=== PATIENT | male | born 1950 | race Caucasian/White ===

== ENCOUNTER → 2020-11-15 13:49 | Outpatient (BNVA) | payer MEDICARE, SELFPAY | PROVIDERS: PCP Internal Medicine Medical Oncology; Visit Provider Hospitalist | DX: R91.1 Solitary pulmonary nodule (principal); J30.9 Allergic rhinitis, unspecified; G47.33 Obstructive sleep apnea (adult) (pediatric); Z99.89 Dependence on other enabling machines and devices | CPT/HCPCS: 99212 ==

== ENCOUNTER → 2021-05-21 10:05 | Outpatient (BNVA) | payer MEDICARE, SELFPAY | PROVIDERS: PCP Internal Medicine Medical Oncology; Visit Provider Hospitalist | DX: R16.1 Splenomegaly, not elsewhere classified (principal); R91.1 Solitary pulmonary nodule; G47.33 Obstructive sleep apnea (adult) (pediatric); J20.9 Acute bronchitis, unspecified; R63.4 Abnormal weight loss; Z99.89 Dependence on other enabling machines and devices | CPT/HCPCS: 99212 ==

== ENCOUNTER 2023-03-26 13:32 | Outpatient (REF) | payer MEDICARE, SELFPAY ==
--- NOTE | ~2023-03-26 | XR_ITS ---
EXAMINATION: XR CHEST CLINICAL INFORMATION: R05.3 - Chronic cough COMPARISON: CT chest noncontrast 03/01/2019 (RAYUS). TECHNIQUE: 2 views of the chest were obtained. FINDINGS: The lungs are clear. No airspace consolidation or groundglass opacity. The costophrenic sulci are well-defined. The heart is normal in size. Vascularity is normal. Hilar and mediastinal contours are unremarkable. No visible acute bony abnormality. XR/XR chest 2V IMPRESSION: Unremarkable examination.
== END 2023-03-26 13:33 | disposition home or self-care (01) ==
LOC: HO.XRAY 13:32
PROVIDERS: PCP Hospitalist; Visit Provider Hospitalist
DX: J45.909 Unspecified asthma, uncomplicated (principal); G47.33 Obstructive sleep apnea (adult) (pediatric); R91.8 Other nonspecific abnormal finding of lung field; R91.1 Solitary pulmonary nodule; Z99.89 Dependence on other enabling machines and devices
CPT/HCPCS: 71046; 99212

== ENCOUNTER 2023-07-29 09:33 | Outpatient (AMB) | payer MEDICARE, SELFPAY ==
[2023-07-29 09:42] VITALS: BP 110/60; PULSE 64; O2SAT 98; BMI 28.0
--- NOTE | 2023-07-29 09:42 | MHC.OFFVIS ---
Intake Vital Signs 07/29/23 09:42 Height 5 ft 10 in Weight 195 lb BMI 28.0 BP 110/60 Blood Pressure Location Lt brachial Position Sitting Pulse 64 Pulse Source Pulse Oximeter Pulse Oximetry (%) 98 Oxygen Delivery Method Room Air Intake Visit Reasons: Asthma [place] Required: No Allergies doxycycline Allergy (Severe, Verified 07/29/23 09:45) nausea and vomiting Cipro Allergy (Severe, Uncoded 07/29/23 09:45) Diarrhea Penicillin Allergy (Severe, Uncoded 07/29/23 09:45) Rash HPI HPI Comments History of Present Illness Details The patient is a 72-year-old gentleman known [place], chronic rhinitis in the in addition to pulmonary nodules. In regards of is CPAP the CPAP therapy has been affecting beneficial. However, he doesn't seem to be able to tolerated the whole night. We did request a download showing that he has apnea is improved dramatically with an AHI of less than 1. His average pressure is around 6 to 9. The therapy has been affecting beneficial. At this point will try to minimize the pressures to minimize difficulties tolerating it the whole night. I also think that he needs a new mask. I did recommend the [employer] fullface mask. In regards to the pulmonary nodules he is last CT scan of the chest was done at [facility] back in February 2019 demonstrating stable pulmonary nodules and interstitial changes when compared to 2016. He has been having issues with nasal congestion. He stop the Astelin nasal spray. He is continue the ipratropium. At this point he has nasal congestion is worse. 05/15/2020. The patient is here for pulmonary follow-up visit. Overall the patient is doing okay. He was having issues with fatigue and was noted to have some anemia. For the anemia workup included a CT scan of the chest. This time had at [facility] where again diff on the right lower lobe nodular density and also some lymphadenopathy. He is scheduled to undergo a repeat CT scan next week. In the office we did look at the CT scan from February 2019 from [facility] demonstrating similar findings with the parenchymal density, but, will see if there is any changes in the lymphadenopathy appreciated on the recent CT scan. In regards to his obstructive sleep apnea he still struggling with the CPAP. He tries to use it but then takes it off after 1-2 hours. We did switch his APAP to a CPAP pressure of 7 cm and a ramp before. Hopefully, he can tolerate that pressure knowing that a average pressure 6.5 decrease his AHI to 0.9 which is very reassuring. If he cannot tolerate that pressure he can decrease the pressure to 6 or call me and I can decrease the pressure for him. I did provide him with a different mask N30i that he can try as well and see if improves his overall tolerance of the PAP therapy. He also mentions that he had of bloody nose. He was evaluated by ENT. He did have increased vascularity and dryness. Hopefully now in the summertime should be doing okay. Will monitor closely may need of additional humidification or lubrication of the nasal passages for the winter months. He has been evaluated further by the oncologist and did undergo a repeat CT scan of the chest sometime in March 2020 demonstrating still the persistent abnormal finding in the right lower lobe. Has not appear to have changed. In addition to that on examination he continues to have this persistent 3/6 holosystolic murmur radiating to the apex suggestive of a mitral regurgitation murmur. He will be following up with primary care doctor soon, therefore, our request an echocardiogram for them to have available to review and can also reviewed myself as well. 11/15/2020 the patient is here for pulmonary follow-up visit. Overall he is doing very well. He lost significant amount of weight. Partly is because he may need lifestyle changes and will has been exercising more. He also has lost some appetite. He has had imaging studies of his chest, last September 2020 demonstrating interval decrease in the nodular density of his lungs which is very reassuring consistent with the findings that he has had a previous CAT scans from [facility]. His main complaint is that he is having significant nasal congestion. He had also some issues with epistaxis. He has been using the fluticasone with no significant improvement. He has used the attributed nasal spray in the past and also the Astelin but no longer. The patient has not had any allergy testing either. He continues uses CPAP. The CPAP therapy continues to be affecting beneficial. Although the nasal congestion does bother him. He does uses CPAP for more than 4 hours a night. At this point will treat his nasal therapies with ipratropium and also the Astelin can stop the fluticasone. He should be able rinses nose prior to putting on CPAP. Will send him for blood work for further allergy testing. 05/21/2021 the patient is here for a pulmonary follow-up visit. He continues to do very well. Although he continues to lose weight. He states that he has not changed his eating habits and he good appetite. He has been more active walking the golf course more regularly about 5 times a week now he is retired. He has had a workup from his primary care provider oncologist. Currently we did review his CT scan of the chest from [facility] that he had back in 2019 and did demonstrate a benign looking area in the esophagus. This point he is scheduled to undergo an endoscopy which will be helpful to further address that issue. In the meantime will follow his pulmonary nodules. They stable in the past with the weight loss I will request repeat scan this time. In addition to that he will be following up with endocrinology soon. He does describe in addition to weight loss loss and strength. From a nasal congestion standpoint used to using it 3 nasal sprays. Did do help although he prefers not to taking. I did recommend that if he has episodes of worsening nasal congestion he can also try Sudafed. In the meantime he continues uses CPAP. The CPAP therapy continues to be affecting beneficial. He is tolerating it well. He is wondering with weight loss if he still needs it. My recommendation is that if he is tolerating CPAP he to use continue using it. Hold off on sleep study at this time. Will have the patient return in the fall after her CT scan of the chest. 03/26/2023 the patient is here for pulmonary follow-up visit. The patient had a tough winter. He had a respiratory illness briefly that resulted in significant shortness of breath and cough. He did call the office and we did recommend he go to the his primary care since we did not have any availability. The patient currently is doing better. His main complaint always that he has significant nasal congestion and postnasal drip. Moderate to severe. For the most part thin liquid secretions. He did try the petroleum nasal spray with only partial resolution. The patient states that he has been using CPAP at nighttime. Although sometimes difficult for him to tolerated. We did download the machine on he does use it every night but seems to take it off in the middle the night. He does not understand or remember why. Most likely is because the pressure is going up. We did download the machine and appears that his AHI is well below 1 and his average pressure is around 6-7 cm water. Patient likely takes it off when he goes higher than that. In addition to this seems like his current CPAP is not working properly. HIs CPAP is older than 8 years. Will request for placement resmed machine at this time the patient will bring in his new machine when he comes into the next visit. 07/29/2023 the patient is here for pulmonary follow-up visit. Overall the patient has been doing well from a respiratory status. Although he says that he typically has a hard time breathing in the winter time. He has had that difficulty breathing for the last 2 years. This time will reassess him during the winter months. However he still struggling with CPAP mask. The mask is leaking out air into his and then last waking her up. Also the elevated pressures are bothering him he has to reset the machine. Otherwise CPAP therapy has been affecting beneficial. He does use an N20 mask. I do see with the escape air is coming out of the from the mask. I did provide him with an N30 I mask that allows on last the [place] of the air so hopefully his 1 be affected by a. He tolerated the mask well in the office. He stated I small mask very well. The pressures were adjusted as well from CPAP of 7 to a CPAP APAP 4-6. His AHI was down to 0. He as far as his chest x-ray back in March it was our read as no acute disease. Therefore no edema imaging is warranted. His breathing is okay right now. Will have him come back in the winter time with pulmonary function studies. [facility] Medical History (Updated 03/26/23 @ 14:03 by Grover Barbosa MD) Chronic cough Weight loss Splenomegaly Polycythemia Pulmonary nodule CHICO on CPAP Chronic allergic rhinitis Social History (Updated 05/21/21 @ 10:16 by STEPHON Vega) Patient Tobacco Use Status: Never used Tobacco Review of Systems Const Denies night sweats ENT Denies change in voice, Denies lip swelling, Denies mouth pain, Reports nasal congestion, Reports nasal discharge, Reports post nasal drip and Denies tongue swelling Card Denies chest pain Resp Reports cough GI Denies abdominal pain Musc Denies no additional complaints Neuro Denies Neuro-related abnormal movements Psych Denies no additional complaints Asa/Lymph Denies easy bleeding and Denies lymphadenopathy Aller/Immun Denies lip swelling and Denies tongue swelling Physical Exam Vital Signs: Last Vital Signs Pulse 64 07/29/23 09:42 BP 110/60 07/29/23 09:42 Pulse Ox 98 07/29/23 09:42 Oxygen Delivery Method Room Air 07/29/23 09:42 BMI result Body Mass Index 28.0 Const General: alert Eyes Pupils: Equal, round and reactive pupils present Neck Neck: Yes normal visual inspection, Yes full ROM and Yes no lymphadenopathy Chest Chest palpation & inspection: normal inspection of the chest Resp Auscultation: diminished lung sounds Cardio Rate: regular rate Rhythm: regular rhythm Heart sounds: S1 normal heart sound present and S2 normal heart sound present GI Palpation (GI): Soft to palpation and nontender Auscultation: normal bowel sounds Skin General skin exam: rashes and/or lesions noted Neuro Cranial nerves: Yes Equal, round and reactive pupils present Assessment & Plan Assessment & Plan (1) Pulmonary nodule: Code(s): R91.1 - Solitary pulmonary nodule (2) [place] on CPAP: Code(s): G47.33 - Obstructive sleep apnea (adult) (pediatric); Z99.89 - Dependence on other enabling machines and devices (3) Chronic allergic rhinitis: Code(s): J30.9 - Allergic rhinitis, unspecified (4) Chronic cough: Code(s): R05.3 - Chronic cough Plan Continue CPAP, machine not working properly, older than 8 years. We will request a replacement, machine broken beyond repeair. Adjusted pressures, APAP 4-6. Trial [id number] Continue nasal fluticasone nasal spray, ipratropium nasal spray PFTs F/U 4 months Orders: Orders PFT pulmonary function test 3 Months R05.3 - Chronic cough Coding Level of Care Code Est Pt Level 4 (32489) Diagnoses Pulmonary nodule R91.1 CHICO on CPAP G47.33; Z99.89 Chronic allergic rhinitis J30.9 Chronic cough R05.3 Time Spent (min) 19
== END 2023-07-29 10:11 | disposition home or self-care (01) ==
PROVIDERS: PCP Hospitalist; Visit Provider Hospitalist
DX: R91.1 Solitary pulmonary nodule (principal); G47.33 Obstructive sleep apnea (adult) (pediatric); Z99.89 Dependence on other enabling machines and devices; J30.9 Allergic rhinitis, unspecified; R05.3 Chronic cough
CPT/HCPCS: 99214

== ENCOUNTER → 2023-07-29 09:33 | Outpatient (BNVA) | payer MEDICARE, SELFPAY | PROVIDERS: Visit Provider Hospitalist | DX: G47.33 Obstructive sleep apnea (adult) (pediatric) (principal); R91.1 Solitary pulmonary nodule; J30.9 Allergic rhinitis, unspecified; R05.3 Chronic cough; Z99.89 Dependence on other enabling machines and devices | CPT/HCPCS: 99212 ==

== ENCOUNTER 2023-10-29 10:29 | Outpatient (REF) | payer MEDICARE, SELFPAY ==
--- NOTE | 2023-10-29 11:07 | PFT_ITS ---
Spirometry [] FVC= 89%, FEV1 99%, FEV1/FVC ratio 84 FEF 25-75 178% MVV 57% Post bronchodilator therapy there is no change Lung Volumes [] Total lung capacity 80% residual volume 78% Diffusion Capacity [] DLCO 57% dL/VA 69% Methacholine Challenge [] Flow Volume Loops [] MVV [] MIP/MEP(Max inspiratory pressure/Max expiratory pressure) [] 6 Minute Walk Test [] ABG [] Interpretation [] NORMAL PULMONARY FUNCTION TEST. NO EVIDENCE OF OBSTRUCTIVE OR RESTRICTIVE PULMONARY DISORDER. DIFFUSION CAPACITY IS MODERATELY DECREASED WHICH MAY BE DUE TO TECHNICAL REASON, PULMONARY VASCULAR DISEASE, OR NON PULMONARY FACTORS. CLINICAL CORRELATION IS RECOMMENDED. MTDD
== END 2023-10-29 10:30 | disposition home or self-care (01) ==
LOC: HO.RESP 10:29
PROVIDERS: PCP Hospitalist; Visit Provider Hospitalist
DX: R05.3 Chronic cough (principal)
CPT/HCPCS: 94010; 94727; 94729

== ENCOUNTER → 2023-10-29 11:07 | Outpatient (BNV) | payer MEDICARE, SELFPAY | PROVIDERS: PCP Hospitalist; Visit Provider Internal Medicine | DX: R05.3 Chronic cough (principal) | CPT/HCPCS: 94060; 94727; 94729 ==

== ENCOUNTER 2023-11-25 10:14 | Outpatient (AMB) | payer MEDICARE, SELFPAY ==
--- NOTE | 2023-11-25 10:18 | MHC.OFFVIS ---
Intake Vital Signs 11/25/23 10:19 Height 5 ft 10 in Weight 198 lb BMI 28.4 BP 122/50 L Blood Pressure Location Lt brachial Position Sitting Pulse 68 Pulse Source Pulse Oximeter Pulse Oximetry (%) 100 Oxygen Delivery Method Room Air Intake Visit Reasons: Asthma Allergies doxycycline Allergy (Severe, Verified 11/25/23 10:21) nausea and vomiting Cipro Allergy (Severe, Uncoded 11/25/23 10:21) Diarrhea Penicillin Allergy (Severe, Uncoded 11/25/23 10:21) Rash HPI HPI Comments History of Present Illness Details The patient is a 73-year-old gentleman known CHICO, chronic rhinitis in the in addition to pulmonary nodules. In regards of is CPAP the CPAP therapy has been affecting beneficial. However, he doesn't seem to be able to tolerated the whole night. We did request a download showing that he has apnea is improved dramatically with an AHI of less than 1. His average pressure is around 6 to 9. The therapy has been affecting beneficial. At this point will try to minimize the pressures to minimize difficulties tolerating it the whole night. I also think that he needs a new mask. I did recommend the dreamwear fullface mask. In regards to the pulmonary nodules he is last CT scan of the chest was done at [facility] back in February 2019 demonstrating stable pulmonary nodules and interstitial changes when compared to 2016. He has been having issues with nasal congestion. He stop the Astelin nasal spray. He is continue the ipratropium. At this point he has nasal congestion is worse. 05/15/2020. The patient is here for pulmonary follow-up visit. Overall the patient is doing okay. He was having issues with fatigue and was noted to have some anemia. For the anemia workup included a CT scan of the chest. This time had at [facility] where again diff on the right lower lobe nodular density and also some lymphadenopathy. He is scheduled to undergo a repeat CT scan next week. In the office we did look at the CT scan from February [address] [facility] demonstrating similar findings with the parenchymal density, but, will see if there is any changes in the lymphadenopathy appreciated on the recent CT scan. In regards to his obstructive sleep apnea he still struggling with the CPAP. He tries to use it but then takes it off after 1-2 hours. We did switch his APAP to a CPAP pressure of 7 cm and a ramp before. Hopefully, he can tolerate that pressure knowing that a average pressure 6.5 decrease his AHI to 0.9 which is very reassuring. If he cannot tolerate that pressure he can decrease the pressure to 6 or call me and I can decrease the pressure for him. I did provide him with a different mask N30i that he can try as well and see if improves his overall tolerance of the PAP therapy. He also mentions that he had of bloody nose. He was evaluated by ENT. He did have increased vascularity and dryness. Hopefully now in the summertime should be doing okay. Will monitor closely may need of additional humidification or lubrication of the nasal passages for the winter months. He has been evaluated further by the oncologist and did undergo a repeat CT scan of the chest sometime in March 2020 demonstrating still the persistent abnormal finding in the right lower lobe. Has not appear to have changed. In addition to that on examination he continues to have this persistent 3/6 holosystolic murmur radiating to the apex suggestive of a mitral regurgitation murmur. He will be following up with primary care doctor soon, therefore, our request an echocardiogram for them to have available to review and can also reviewed myself as well. 11/15/2020 the patient is here for pulmonary follow-up visit. Overall he is doing very well. He lost significant amount of weight. Partly is because he may need lifestyle changes and will has been exercising more. He also has lost some appetite. He has had imaging studies of his chest, last September 2020 demonstrating interval decrease in the nodular density of his lungs which is very reassuring consistent with the findings that he has had a previous CAT scans from [facility]. His main complaint is that he is having significant nasal congestion. He had also some issues with epistaxis. He has been using the fluticasone with no significant improvement. He has used the attributed nasal spray in the past and also the Astelin but no longer. The patient has not had any allergy testing either. He continues uses CPAP. The CPAP therapy continues to be affecting beneficial. Although the nasal congestion does bother him. He does uses CPAP for more than 4 hours a night. At this point will treat his nasal therapies with ipratropium and also the Astelin can stop the fluticasone. He should be able rinses nose prior to putting on CPAP. Will send him for blood work for further allergy testing. 05/21/2021 the patient is here for a pulmonary follow-up visit. He continues to do very well. Although he continues to lose weight. He states that he has not changed his eating habits and he good appetite. He has been more active walking the golf course more regularly about 5 times a week now he is retired. He has had a workup from his primary care provider oncologist. Currently we did review his CT scan of the chest from [facility] that he had back in 2019 and did demonstrate a benign looking area in the esophagus. This point he is scheduled to undergo an endoscopy which will be helpful to further address that issue. In the meantime will follow his pulmonary nodules. They stable in the past with the weight loss I will request repeat scan this time. In addition to that he will be following up with endocrinology soon. He does describe in addition to weight loss loss and strength. From a nasal congestion standpoint used to using it 3 nasal sprays. Did do help although he prefers not to taking. I did recommend that if he has episodes of worsening nasal congestion he can also try Sudafed. In the meantime he continues uses CPAP. The CPAP therapy continues to be affecting beneficial. He is tolerating it well. He is wondering with weight loss if he still needs it. My recommendation is that if he is tolerating CPAP he to use continue using it. Hold off on sleep study at this time. Will have the patient return in the fall after her CT scan of the chest. 03/26/2023 the patient is here for pulmonary follow-up visit. The patient had a tough winter. He had a respiratory illness briefly that resulted in significant shortness of breath and cough. He did call the office and we did recommend he go to the his primary care since we did not have any availability. The patient currently is doing better. His main complaint always that he has significant nasal congestion and postnasal drip. Moderate to severe. For the most part thin liquid secretions. He did try the petroleum nasal spray with only partial resolution. The patient states that he has been using CPAP at nighttime. Although sometimes difficult for him to tolerated. We did download the machine on he does use it every night but seems to take it off in the middle the night. He does not understand or remember why. Most likely is because the pressure is going up. We did download the machine and appears that his AHI is well below 1 and his average pressure is around 6-7 cm water. Patient likely takes it off when he goes higher than that. In addition to this seems like his current CPAP is not working properly. HIs CPAP is older than 8 years. Will request for placement resmed machine at this time the patient will bring in his new machine when he comes into the next visit. 07/29/2023 the patient is here for pulmonary follow-up visit. Overall the patient has been doing well from a respiratory status. Although he says that he typically has a hard time breathing in the winter time. He has had that difficulty breathing for the last 2 years. This time will reassess him during the winter months. However he still struggling with CPAP mask. The mask is leaking out air into his and then last waking her up. Also the elevated pressures are bothering him he has to reset the machine. Otherwise CPAP therapy has been affecting beneficial. He does use an N20 mask. I do see with the escape air is coming out of the from the mask. I did provide him with an N30 I mask that allows on last the [place] of the air so hopefully his 1 be affected by a. He tolerated the mask well in the office. He stated I small mask very well. The pressures were adjusted as well from CPAP of 7 to a CPAP APAP 4-6. His AHI was down to 0. He as far as his chest x-ray back in March it was our read as no acute disease. Therefore no edema imaging is warranted. His breathing is okay right now. Will have him come back in the winter time with pulmonary function studies. 11/25/2023 the patient is here for a pulmonary follow-up visit. The patient has had a hard time since the fall. He developed COVID-19 and subsequently after that developed a worsening cough and shortness of breath. It was hard for him to go 1 flight of stairs. The patient still struggles with that. Because of the cough was so persistent he was not able to uses CPAP regularly. Therefore, he was not been using it. Did get a letter from [facility] that he had to use it otherwise will going to take it away. He did bring the machine in and we did download the data. The last 30 days he used it about 90% of the time in is average uses definitely more than 4 hours. His AHI is down to 0.3 and therefore the therapy has been affecting beneficial. I did call [facility] to make sure that the machine does not get taking away. In the meantime he did undergo pulmonary function studies. He appears to have restrictive ventilatory defect with a moderate diffusion impairment. This may have been the result of his underlying COVID infection back in the fall. Still the patient also has pulmonary nodules and has had some weight loss. Therefore to address the pulmonary nodules the restrictive lung disease and the weight loss will request a CT scan of the chest at this time. The patient is also concerned because his brother recently was diagnosed with stage IV lung cancer. [facility] Medical History (Updated 11/25/23 @ 10:33 by Grover Barbosa MD) Chronic restrictive lung disease Chronic cough Weight loss Splenomegaly Polycythemia Pulmonary nodule CHICO on CPAP Chronic allergic rhinitis Social History (Updated 05/21/21 @ 10:16 by Peggy Petersen [facility]) Patient Tobacco Use Status: Never used Tobacco Review of Systems Const Denies night sweats ENT Denies change in voice, Denies lip swelling, Denies mouth pain, Reports nasal congestion, Reports nasal discharge, Reports post nasal drip and Denies tongue swelling Card Denies chest pain and Reports dyspnea on exertion Resp Reports cough and Reports dyspnea on exertion GI Denies abdominal pain Musc Denies no additional complaints Neuro Denies Neuro-related abnormal movements Psych Denies no additional complaints Asa/Lymph Denies easy bleeding and Denies lymphadenopathy Aller/Immun Denies lip swelling and Denies tongue swelling Physical Exam Vital Signs: Last Vital Signs Pulse 68 11/25/23 10:19 BP 122/50 L 11/25/23 10:19 Pulse Ox 100 11/25/23 10:19 Oxygen Delivery Method Room Air 11/25/23 10:19 BMI result Body Mass Index 28.4 Const General: alert Eyes Pupils: Equal, round and reactive pupils present Neck Neck: Yes supple Chest Chest palpation & inspection: normal inspection of the chest Resp Effort & Inspection: normal respiratory effort Auscultation: diminished lung sounds Cardio Rate: regular rate Rhythm: regular rhythm Heart sounds: S1 normal heart sound present and S2 normal heart sound present GI Palpation (GI): Soft to palpation and nontender Auscultation: normal bowel sounds Skin General skin exam: rashes and/or lesions noted Neuro Cranial nerves: Yes Equal, round and reactive pupils present Assessment & Plan Assessment & Plan (1) Chronic restrictive lung disease: Code(s): J98.4 - Other disorders of lung (2) Weight loss: Code(s): R63.4 - Abnormal weight loss (3) Pulmonary nodule: Code(s): R91.1 - Solitary pulmonary nodule (4) CHICO on CPAP: Code(s): G47.33 - Obstructive sleep apnea (adult) (pediatric); Z99.89 - Dependence on other enabling machines and devices (5) Chronic allergic rhinitis: Code(s): J30.9 - Allergic rhinitis, unspecified (6) Chronic cough: Code(s): R05.3 - Chronic cough Plan Continue APAP 4-6. [id number] Continue nasal fluticasone nasal spray, ipratropium nasal spray nasal spray cough medicine CT chest F/U 4 months Orders: Orders CT chest wo IV con Today J98.4 - Other disorders of lung, R63.4 - Abnormal weight loss, R91.1 - Solitary pulmonary nodule Medications: New fluticasone propionate 50 mcg/actuation 2 sprays intranasal DAILY 30 days 15.8 mL 11RF J31.0 - Chronic rhinitis codeine-guaifenesin 10-100 mg/5 mL 10 mL PO Q6H 10 days PRN 300 mL 0RF cough Coding Level of Care Code Est Pt Level 4 (99145) Diagnoses Chronic restrictive lung disease J98.4 Weight loss R63.4 Pulmonary nodule R91.1 CHICO on CPAP G47.33; Z99.89 Chronic allergic rhinitis J30.9 Chronic cough R05.3 Time Spent (min) 19
[2023-11-25 10:19] VITALS: BP 122/50; PULSE 68; O2SAT 100; BMI 28.4
== END 2023-11-25 10:45 | disposition home or self-care (01) ==
PROVIDERS: PCP Hospitalist; Visit Provider Hospitalist
DX: J98.4 Other disorders of lung (principal); R63.4 Abnormal weight loss; R91.1 Solitary pulmonary nodule; G47.33 Obstructive sleep apnea (adult) (pediatric); Z99.89 Dependence on other enabling machines and devices; J30.9 Allergic rhinitis, unspecified; R05.3 Chronic cough
CPT/HCPCS: 99214

== ENCOUNTER → 2023-11-25 10:14 | Outpatient (BNVA) | payer MEDICARE, SELFPAY | PROVIDERS: PCP Hospitalist; Visit Provider Hospitalist | DX: J98.4 Other disorders of lung (principal); R63.4 Abnormal weight loss; R91.1 Solitary pulmonary nodule; G47.33 Obstructive sleep apnea (adult) (pediatric); J30.9 Allergic rhinitis, unspecified; R05.3 Chronic cough; Z99.89 Dependence on other enabling machines and devices | CPT/HCPCS: 99212 ==

== ENCOUNTER 2023-12-31 13:55 | Outpatient (REF) | payer MEDICARE, SELFPAY ==
--- NOTE | ~2023-12-31 | CT_ITS ---
EXAMINATION: CT CHEST WITHOUT CONTRAST CLINICAL INFORMATION: Solitary pulmonary nodule, COPD and weight loss COMPARISON: 03/26/2023 chest radiograph, previous CTs dating back to 10/19/2015 and the TECHNIQUE: Multidetector volumetric CT imaging of the chest was done. Axial MIP volume rendering provided. Sagittal and coronal reformatted images were obtained. This CT examination was performed using dose optimization techniques as appropriate, variously including the following: *Automated exposure control *Adjustment of mA and/or kV according to patient size (this includes techniques or standardized protocols for targeted exams where dose is matched to indication/reason for exam; i.e. extremities or head) *Use of iterative reconstruction technique DLP: 195 mGy-cm FINDINGS: BULK STATION AGENT: No acute cardiopulmonary disease. LUNGS: Trachea and bronchi are patent. Mild bronchiectasis. Biapical pleural parenchymal thickening, right greater than left. Right lower lobe scarring/atelectasis with tethering to the pleura, present dating back to 10/19/2015. NODULES: RLL: 6 mm, 6:151, previously 5 mm on 10/10/2022. 7mm, 6:164, previously 6 mm on 10/10/2022. 4 mm subpleural, 6:165, previously 3 mm on 10/10/2022. MEDIASTINUM: Unremarkable thyroid. 1.5 x 1.2 cm lymph node identified posterior to the esophagus. Enlarged left supraclavicular lymph nodes, largest in the range of 1.5 cm. Multiple other prominent but not pathologically enlarged left lower cervical, upper mediastinal, pretracheal, subcarinal and prevascular lymph nodes. Heart size within normal limits. No pericardial effusion. Nonaneurysmal aorta. Ectatic pulmonary arteries. CORONARY ARTERY CALCIFICATION: Moderately severe. PLEURA: There is no pleural effusion. No pleural mass or thickening. AXILLA: Prominent bilateral axillary lymph nodes, largest on the left measuring 2.1 cm. UPPER ABDOMEN: Redemonstration splenomegaly, currently measuring 20 cm. Gallstone filled gallbladder without wall thickening, pericholecystic fluid or inflammatory changes. Small retroperitoneal lymph nodes, previously identified. Too small to characterize superior hepatic hypodensity again seen, possibly cyst. OSSEOUS AND SOFT TISSUE STRUCTURES: Gynecomastia. No suspicious osseous lesions. CT/CT chest wo IV con IMPRESSION: Right lower lobe pulmonary nodules with slight increase in size from 10/10/2022, largest measuring 7 mm. No new pulmonary nodules. 3 month LDCT follow-up recommended. Stable right lower lobe scarring/atelectasis. Splenomegaly present dating back to 2014. Mediastinal, lower cervical, left supraclavicular and axillary lymphadenopathy. Correlate clinically. Fleischner guidelines were followed.
== END 2023-12-31 13:56 | disposition home or self-care (01) ==
LOC: HO.CT 13:55
PROVIDERS: PCP Hospitalist; Visit Provider Hospitalist
DX: R91.1 Solitary pulmonary nodule (principal); J98.4 Other disorders of lung; R63.4 Abnormal weight loss
CPT/HCPCS: 71250

== ENCOUNTER 2024-04-12 09:55 | Outpatient (REF) | payer MEDICARE, SELFPAY ==
--- NOTE | ~2024-04-12 | CT_ITS ---
EXAMINATION: CT CHEST WITHOUT CONTRAST CLINICAL INFORMATION: Solitary pulmonary nodule COMPARISON: 12/31/2019 TECHNIQUE: Multidetector volumetric CT imaging of the chest was done. Axial MIP volume rendering provided. Sagittal and coronal reformatted images were obtained. This CT examination was performed using dose optimization techniques as appropriate, variously including the following: *Automated exposure control *Adjustment of mA and/or kV according to patient size (this includes techniques or standardized protocols for targeted exams where dose is matched to indication/reason for exam; i.e. extremities or head) *Use of iterative reconstruction technique DLP: 196 mGy-cm FINDINGS: COMMAND AND CONTROL SPECIALIST: Unremarkable LUNGS: Seen on the prior examination a triangular-shaped nodule in the right lower lobe measured 0.5 cm stable since previous examinations. Seen on the previous examination right lower lobe 0.7 cm nodule is stable, abating the diaphragm and liver. Subpleural nodule visualized on the current study as well as on the previous one is stable and measured 0.4 cm. There are no new nodules lungs are well expanded. There is biapical scarring. Central airways are patent. MEDIASTINUM: There is no mediastinal lymphadenopathy except of stable retroesophageal oval-shaped lymph node, measured 1.1 x 1.0 cm. The aorta is not dilated and there is no pericardial effusion CORONARY ARTERY CALCIFICATION: Moderate PLEURA: Pleural based thickening seen on the right but no pleural effusions seen. AXILLA: No lymphadenopathy. UPPER ABDOMEN: There is splenomegaly, the spleen measured approximately 20 cm. There is low-attenuation lesion in the right lobe of the liver measured 1.5 cm stable since prior study and most likely cyst or hemangioma. Gallbladder contracted to his numerous stones. OSSEOUS STRUCTURES: Osseous structures are unremarkable there is stable gynecomastia. CT/CT chest wo IV con IMPRESSION: 1. Stable lung nodules. 2. Stable retroesophageal lymph node. 3. Splenomegaly. 4. Cholelithiasis. 5. Gynecomastia. Fleischner guidelines were followed.
== END 2024-04-12 09:56 | disposition home or self-care (01) ==
LOC: HO.CT 09:55
PROVIDERS: PCP Hospitalist; Visit Provider Hospitalist
DX: R91.1 Solitary pulmonary nodule (principal)
CPT/HCPCS: 71250

== ENCOUNTER 2024-04-20 09:46 | Outpatient (AMB) | payer MEDICARE, SELFPAY ==
[2024-04-20 09:54] VITALS: PULSE 67; O2SAT 98; BMI 28.0
--- NOTE | 2024-04-20 09:54 | A.OFFVIS_ITS ---
Vital Signs 04/20/24 09:54 Height 5 ft 10 in Weight 195 lb BMI 28.0 Pulse 67 Pulse Source Pulse Oximeter Pulse Oximetry (%) 98 Oxygen Delivery Method Room Air Intake Visit Reasons: pulmonry nodules Pot Puncher Required: No Allergies doxycycline Allergy (Severe, Verified 04/20/24 09:55) nausea and vomiting Cipro Allergy (Severe, Uncoded 04/20/24 09:55) Diarrhea Penicillin Allergy (Severe, Uncoded 04/20/24 09:55) Rash HPI Comments Details: The patient is a 73-year-old gentleman known [place], chronic rhinitis in the in addition to pulmonary nodules. In regards of is CPAP the CPAP therapy has been affecting beneficial. However, he doesn't seem to be able to tolerated the whole night. We did request a download showing that he has apnea is improved dramatically with an AHI of less than 1. His average pressure is around 6 to 9. The therapy has been affecting beneficial. At this point will try to minimize the pressures to minimize difficulties tolerating it the whole night. I also think that he needs a new mask. I did recommend the dreamwear fullface mask. In regards to the pulmonary nodules he is last CT scan of the chest was done at [facility] back in February 2019 demonstrating stable pulmonary nodules and interstitial changes when compared to 2016. He has been having issues with nasal congestion. He stop the Astelin nasal spray. He is continue the ipratropium. At this point he has nasal congestion is worse. 05/15/2020. The patient is here for pulmonary follow-up visit. Overall the patient is doing okay. He was having issues with fatigue and was noted to have some anemia. For the anemia workup included a CT scan of the chest. This time had at [facility] where again diff on the right lower lobe nodular density and also some lymphadenopathy. He is scheduled to undergo a repeat CT scan next week. In the office we did look at the CT scan from February 2019 from [facility] demonstrating similar findings with the parenchymal density, but, will see if there is any changes in the lymphadenopathy appreciated on the recent CT scan. In regards to his obstructive sleep apnea he still struggling with the CPAP. He tries to use it but then takes it off after 1-2 hours. We did switch his APAP to a CPAP pressure of 7 cm and a ramp before. Hopefully, he can tolerate that pressure knowing that a average pressure 6.5 decrease his AHI to 0.9 which is very reassuring. If he cannot tolerate that pressure he can decrease the pressure to 6 or call me and I can decrease the pressure for him. I did provide him with a different mask N30i that he can try as well and see if improves his overall tolerance of the PAP therapy. He also mentions that he had of bloody nose. He was evaluated by ENT. He did have increased vascularity and dryness. Hopefully now in the summertime should be doing okay. Will monitor closely may need of additional humidification or lubrication of the nasal passages for the winter months. He has been evaluated further by the oncologist and did undergo a repeat CT scan of the chest sometime in March 2020 demonstrating still the persistent abnormal finding in the right lower lobe. Has not appear to have changed. In addition to that on examination he continues to have this persistent 3/6 holosystolic murmur radiating to the apex suggestive of a mitral regurgitation murmur. He will be following up with primary care doctor soon, therefore, our request an echocardiogram for them to have available to review and can also reviewed myself as well. 11/15/2020 the patient is here for pulmonary follow-up visit. Overall he is doing very well. He lost significant amount of weight. Partly is because he may need lifestyle changes and will has been exercising more. He also has lost some appetite. He has had imaging studies of his chest, last September 2020 de monstrating interval decrease in the nodular density of his lungs which is very reassuring consistent with the findings that he has had a previous CAT scans from [facility]. His main complaint is that he is having significant nasal congestion. He had also some issues with epistaxis. He has been using the fluticasone with no significant improvement. He has used the attributed nasal spray in the past and also the Astelin but no longer. The patient has not had any allergy testing either. He continues uses CPAP. The CPAP therapy continues to be affecting beneficial. Although the nasal congestion does bother him. He does uses CPAP for more than 4 hours a night. At this point will treat his nasal therapies with ipratropium and also the Astelin can stop the fluticasone. He should be able rinses nose prior to putting on CPAP. Will send him for blood work for further allergy testing. 05/21/2021 the patient is here for a pulmonary follow-up visit. He continues to do very well. Although he continues to lose weight. He states that he has not changed his eating habits and he good appetite. He has been more active walking the golf course more regularly about 5 times a week now he is retired. He has had a workup from his primary care provider oncologist. Currently we did review his CT scan of the chest from [facility] that he had back in 2019 and did demonstrate a benign looking area in the esophagus. This point he is scheduled to undergo an endoscopy which will be helpful to further address that issue. In the meantime will follow his pulmonary nodules. They stable in the past with the weight loss I will request repeat scan this time. In addition to that he will be following up with endocrinology soon. He does describe in addition to weight loss loss and strength. From a nasal congestion standpoint used to using it 3 nasal sprays. Did do help although he prefers not to taking. I did recommend that if he has episodes of worsening nasal congestion he can also try Sudafed. In the meantime he continues uses CPAP. The CPAP therapy continues to be affecting beneficial. He is tolerating it well. He is wondering with weight loss if he still needs it. My recommendation is that if he is tolerating CPAP he to use continue using it. Hold off on sleep study at this time. Will have the patient return in the fall after her CT scan of the chest. 03/26/2023 the patient is here for pulmonary follow-up visit. The patient had a tough winter. He had a respiratory illness briefly that resulted in significant shortness of breath and cough. He did call the office and we did recommend he go to the his primary care since we did not have any availability. The patient currently is doing better. His main complaint always that he has significant nasal congestion and postnasal drip. Moderate to severe. For the most part thin liquid secretions. He did try the petroleum nasal spray with only partial resolution. The patient states that he has been using CPAP at nighttime. Although sometimes difficult for him to tolerated. We did download the machine on he does use it every night but seems to take it off in the middle the night. He does not understand or remember why. Most likely is because the pressure is going up. We did download the machine and appears that his AHI is well below 1 and his average pressure is around 6-7 cm water. Patient likely takes it off when he goes higher than that. In addition to this seems like his current CPAP is not working properly. HIs CPAP is older than 8 years. Will request for placement resmed machine at this time the patient will bring in his new machine when he comes into the next visit. 07/29/2023 the patient is here for pulmonary follow-up visit. Overall the patient has been doing well from a respiratory status. Although he says that he typically has a hard time breathing in the winter time. He has had that difficulty breathing for the last 2 years. This time will reassess him during the winter months. However he still struggling with CPAP mask. The mask is leaking out air into his and then last waking her up. Also the elevated pressures are bothering him he has to reset the machine. Otherwise CPAP therapy has been affecting beneficial. He does use an N20 mask. I do see with the escape air is coming out of the from the mask. I did provide him with an N30 I mask that allows on last the [place] of the air so hopefully his 1 be affected by a. He tolerated the mask well in the office. He stated I small mask very well. The pressures were adjusted as well from CPAP of 7 to a CPAP APAP 4-6. His AHI was down to 0. He as far as his chest x-ray back in March it was our read as no acute disease. Therefore no edema imaging is warranted. His breathing is okay right now. Will have him come back in the winter time with pulmonary function studies. 11/25/2023 the patient is here for a pulmonary follow-up visit. The patient has had a hard time since the fall. He developed COVID-19 and subsequently after that developed a worsening cough and shortness of breath. It was hard for him to go 1 flight of stairs. The patient still struggles with that. Because of the cough was so persistent he was not able to uses CPAP regularly. Therefore, he was not been using it. Did get a letter from halfway that he had to use it otherwise will going to take it away. He did bring the machine in and we did download the data. The last 30 days he used it about 90% of the time in is average uses definitely more than 4 hours. His AHI is down to 0.3 and therefore the therapy has been affecting beneficial. I did call [facility] [employer] [facility] to make sure that the machine does not get taking away. In the meantime he did undergo pulmonary function studies. He appears to have restrictive ventilatory defect with a moderate diffusion impairment. This may have been the result of his underlying COVID infection back in the fall. Still the patient also has pulmonary nodules and has had some weight loss. Therefore to address the pulmonary nodules the restrictive lung disease and the weight loss will request a CT scan of the chest at this time. The patient is also concerned because his brother recently was diagnosed with stage IV lung cancer. 04/20/2024 the patient is here for a pulmonary follow-up visit. 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 It is very painful and swollen. He did have a biopsy. The patient has not been able to use his CPAP because of the cancer in his year and now is going to surgery. I did reach out to [facility] to explain to them that in view of the ear cancer and not able to wear the head gear will going to have to hold the PAP therapy at this time. He does have significant sleep apnea and he is struggling with daytime drowsiness now that he has not using it. His [place] score is elevated 24. Therefore he definitely needs to use the CPAP right now with his ear cancer and swelling around it in be impossible for him to wear the head gear. Does no other mask head gear that he can wear based on the location of the cancer. The patient also had a CT scan of the chest as a follow-up for his CT scan back in 12/29/2023 where showed a 7 mm pulmonary nodule in the right lower lobe that was increasing in size. He did have a recent CT scan we did review it although has not been officially read yet. It appears that the right lower lobe pulmonary nodule has increased further and size now measuring little bit more than 8 mm in size. Will wait for the final read but if the reading is consistent with the increase into 8 mm in size then we will request a PET scan to further address the possibility of hypermetabolic lesion and cancer. The patient will undergo surgery for his ear and skin cancer in the coming weeks. And then he will also need Plastic surgery. He has a lot going on as his brother recently also from stage IV renal cell carcinoma. After the final report of the CT scan call him and let him know either we are going to do a PET scan measuring 8 mm in size or larger or if it appears to be stable to the radiologist points review then will repeat the CT scan in 3 months. [facility] Medical History (Updated 11/25/23 @ 10:33 by Grover Barbosa MD) Chronic restrictive lung disease Chronic cough Weight loss Splenomegaly Polycythemia Pulmonary nodule CHICO on CPAP Chronic allergic rhinitis Social History (Updated 05/21/21 @ 10:16 by STEPHON Vega) Patient Tobacco Use Status: Never used Tobacco Review of Systems Const Reports daytime sleepiness, Reports difficulty sleeping and Denies night sweats ENT Denies change in voice, Denies lip swelling, Denies mouth pain, Reports nasal congestion, Reports nasal discharge, Reports post nasal drip and Denies tongue swelling Card Denies chest pain and Reports dyspnea on exertion Resp Reports cough and Reports dyspnea on exertion GI Denies abdominal pain Musc Denies no additional complaints Skin/Breast Reports lesions Neuro Denies Neuro-related abnormal movements Psych Denies no additional complaints Asa/Lymph Denies easy bleeding and Denies lymphadenopathy Aller/Immun Denies lip swelling and Denies tongue swelling Physical Exam Vital Signs: Last Vital Signs Pulse 67 04/20/24 09:54 Pulse Ox 98 04/20/24 09:54 Oxygen Delivery Method Room Air 04/20/24 09:54 BMI result Body Mass Index 28.0 Const General: alert HEENT Ears: external ear abnormal auricular tenderness, pain with movement of external ear and other Eyes Pupils: Equal, round and reactive pupils present Neck Neck: Yes supple Chest Chest palpation & inspection: normal inspection of the chest Resp Effort & Inspection: normal respiratory effort Auscultation: diminished lung sounds Cardio Rate: regular rate Rhythm: regular rhythm Heart sounds: S1 normal heart sound present and S2 normal heart sound present GI Palpation (GI): Soft to palpation and nontender Auscultation: normal bowel sounds Skin General skin exam: rashes and/or lesions noted Neuro Cranial nerves: Yes Equal, round and reactive pupils present Assessment & Plan Assessment & Plan (1) Chronic restrictive lung disease: Code(s): J98.4 - Other disorders of lung Category: Medical (2) Weight loss: Code(s): R63.4 - Abnormal weight loss Category: Medical (3) Pulmonary nodule: Code(s): R91.1 - Solitary pulmonary nodule Category: Medical (4) [place]ICO on CPAP: Code(s): G47.33 - Obstructive sleep apnea (adult) (pediatric); Z99.89 - Dependence on other enabling machines and devices Category: Medical (5) Chronic allergic rhinitis: Code(s): J30.9 - Allergic rhinitis, unspecified Category: Medical (6) Chronic cough: Code(s): R05.3 - Chronic cough Category: Medical Plan holding APAP 4-6. [id number] due to ear skin CA Continue nasal fluticasone nasal spray, ipratropium nasal spray pain management CT chest with interval increase in the RLL nodule, now >8mm in size. Awaiting official read. Will benefit from a PET scan if nodule indeed >8mm F/U 3-4 months Medications: New acetaminophen-codeine 300-15 mg 1 tab PO Q12H PRN 20 tabs 0RF pain 10 days Coding Level of Care Code Est Pt Level 4 (88120) Diagnoses Chronic restrictive lung disease J98.4 Weight loss R63.4 Pulmonary nodule R91.1 [place]ICO on CPAP G47.33; Z99.89 Chronic allergic rhinitis J30.9 Chronic cough R05.3 Time Spent (min) 17
== END 2024-04-20 10:19 | disposition home or self-care (01) ==
PROVIDERS: PCP Hospitalist; Visit Provider Hospitalist
DX: J98.4 Other disorders of lung (principal); R63.4 Abnormal weight loss; R91.1 Solitary pulmonary nodule; G47.33 Obstructive sleep apnea (adult) (pediatric); Z99.89 Dependence on other enabling machines and devices; J30.9 Allergic rhinitis, unspecified; R05.3 Chronic cough
CPT/HCPCS: 99214

== ENCOUNTER → 2024-04-20 09:46 | Outpatient (BNVA) | payer MEDICARE, SELFPAY | PROVIDERS: PCP Hospitalist; Visit Provider Hospitalist | DX: J98.4 Other disorders of lung (principal); R63.4 Abnormal weight loss; R91.1 Solitary pulmonary nodule; G47.33 Obstructive sleep apnea (adult) (pediatric); J30.9 Allergic rhinitis, unspecified; R05.3 Chronic cough; Z99.89 Dependence on other enabling machines and devices | CPT/HCPCS: 99212 ==

== ENCOUNTER 2024-07-26 10:03 | Outpatient (AMB) | payer MEDICARE, SELFPAY ==
--- NOTE | 2024-07-26 10:04 | A.OFFVIS_ITS ---
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 In regards of is CPAP the CPAP therapy has been affecting beneficial. However, he doesn't seem to be able to tolerated the whole night. We did request a download showing that he has apnea is improved dramatically with an AHI of less than 1. His average pressure is around 6 to 9. The therapy has been affecting beneficial. At this point will try to minimize the pressures to minimize difficulties tolerating it the whole night. I also think that he needs a new mask. I did recommend the [employer] fullface mask. In regards to the pulmonary nodules he is last CT scan of the chest was done at [facility] back in February 2019 demonstrating stable pulmonary nodules and interstitial ch anges when compared to 2016. He has been having issues with nasal congestion. He stop the Astelin nasal spray. He is continue the ipratropium. At this point he has nasal congestion is worse. 05/15/2020. The patient is here for pulmonary follow-up visit. Overall the patient is doing okay. He was having issues with fatigue and was noted to have some anemia. For the anemia workup included a CT scan of the chest. This time had at [facility] where again diff on the right lower lobe nodular density and also some lymphadenopathy. He is scheduled to undergo a repeat CT scan next week. In the office we did look at the CT scan from February 2019 from [facility] demonstrating similar findings with the parenchymal density, but, will see if there is any changes in the lymphadenopathy appreciated on the recent CT scan. In regards to his obstructive sleep apnea he still struggling with the CPAP. He tries to use it but then takes it off after 1-2 hours. We did switch his APAP to a CPAP pressure of 7 cm and a ramp before. Hopefully, he can tolerate that pressure knowing that a average pressure 6.5 decrease his AHI to 0.9 which is very reassuring. If he cannot tolerate that pressure he can decrease the pressure to 6 or call me and I can decrease the pressure for him. I did provide him with a different mask N30i that he can try as well and see if improves his overall tolerance of the PAP therapy. He also mentions that he had of bloody nose. He was evaluated by ENT. He did have increased vascularity and dryness. Hopefully now in the summertime should be doing okay. Will monitor closely may need of additional humidification or lubrication of the nasal passages for the winter months. He has been evaluated further by the oncologist and did undergo a repeat CT scan of the chest sometime in March 2020 demonstrating still the persistent abnormal finding in the right lower lobe. Has not appear to have changed. In addition to that on examination he continues to have this persistent 3/6 holosystolic murmur radiating to the apex suggestive of a mitral regurgitation murmur. He will be following up with primary care doctor soon, therefore, our request an echocardiogram for them to have available to review and can also reviewed myself as well. 11/15/2020 the patient is here for pulmonary follow-up visit. Overall he is doing very well. He lost significant amount of weight. Partly is because he m ay need lifestyle changes and will has been exercising more. He also has lost some appetite. He has had imaging studies of his chest, last September 2020 demonstrating interval decrease in the nodular density of his lungs which is very reassuring consistent with the findings that he has had a previous CAT scans from [facility]. His main complaint is that he is having significant nasal congestion. He had also some issues with epistaxis. He has been using the fluticasone with no significant improvement. He has used the attributed nasal spray in the past and also the Astelin but no longer. The patient has not had any allergy testing either. He continues uses CPAP. The CPAP therapy continues to be affecting beneficial. Although the nasal congestion does bother him. He does uses CPAP for more than 4 hours a night. At this point will treat his nasal therapies with ipratropium and also the Astelin can stop the fluticasone. He should be able rinses nose prior to putting on CPAP. Will send him for blood work for further allergy testing. 05/21/2021 the patient is here for a pulmonary follow-up visit. He continues to do very well. Although he continues to lose weight. He states t hat he has not changed his eating habits and he good appetite. He has been more active walking the golf course more regularly about 5 times a week now he is retired. He has had a workup from his primary care provider oncologist. Currently we did review his CT scan of the chest from [facility] that he had back in 2019 and did demonstrate a benign looking area in the esophagus. This point he is scheduled to undergo an endoscopy which will be helpful to further address that issue. In the meantime will follow his pulmonary nodules. They stable in the past with the weight loss I will request repeat scan this time. In addition to that he will be following up with endocrinology soon. He does describe in addition to weight loss loss and strength. From a nasal congestion standpoint used to using it 3 nasal sprays. Did do help although he prefers not to taking. I did recommend that if he has episodes of worsening nasal congestion he can also try Sudafed. In the meantime he continues uses CPAP. The CPAP therapy continues to be affecting beneficial. He is tolerating it well. He is wondering with weight loss if he still needs it. My recommendation is that if he is tolerating CPAP he to use continue using it. Hold off on sleep study at this time. Will have the patient return in the fall after her CT scan of the chest. 03/26/2023 the patient is here for pulmonary follow-up visit. The patient had a tough winter. He had a respiratory illness briefly that resulted in significant shortness of breath and cough. He did call the office and we did recommend he go to the his primary care since we did not have any availability. The patient currently is doing better. His main complaint always that he has significant nasal congestion and postnasal drip. Moderate to severe. For the most part thin liquid secretions. He did try the petroleum nasal spray with only partial resolution. The patient states that he has been using CPAP at nighttime. Although sometimes difficult for him to tolerated. We did download the machine on he does use it every night but seems to take it off in the middle the night. He does not understand or remember why. Most likely is because the pressure is going up. We did download the machine and appears that his AHI is well below 1 and his average pressure is around 6-7 cm water. Patient likely takes it off when he goes higher than that. In addition to this seems like his current CPAP is not working properly. HIs CPAP is older than 8 years. Will request for placement resmed machine at this time the patient will bring in his new machine when he comes into the next visit. 07/29/2023 the patient is here for pulmonary follow-up visit. Overall the patient has been doing well from a respiratory status. Although he says that he typically has a hard time breathing in the winter time. He has had that difficulty breathing for the last 2 years. This time will reassess him during the winter months. However he still struggling with CPAP mask. The mask is leaking out air into his and then last waking her up. Also the elevated pressures are bothering him he has to reset the machine. Otherwise CPAP therapy has been affecting beneficial. He does use an N20 mask. I do see with the escape air is coming out of the from the mask. I did provide him with an N30 I mask that allows on last the [place] of the air so hopefully his 1 be affected by a. He tolerated the mask well in the office. He stated I small mask very well. The pressures were adjusted as well from CPAP of 7 to a CPAP APAP 4-6. His AHI was down to 0. He as far as his chest x-ray back in March it was our read as no acute disease. Therefore no edema imaging is warranted. His breathing is okay right now. Will have him come back in the winter time with pulmonary function studies. 11/25/2023 the patient is here for a pulmonary follow-up visit. The patient has had a hard time since the fall. He developed COVID-19 and subsequently after that developed a worsening cough and shortness of breath. It was hard for him to go 1 flight of stairs. The patient still struggles with that. Because of the cough was so persistent he was not able to uses CPAP regularly. Therefore, he was not been using it. Did get a letter from [facility] that he had to use it otherwise will going to take it away. He did bring the machine in and we did download the data. The last 30 days he used it about 90% of the time in is average uses definitely more than 4 hours. His AHI is down to 0.3 and therefore the therapy has been affecting beneficial. I did call [facility] to make sure that the machine does not get taking away. In the meantime he did undergo pulmonary function studies. He appears to have restrictive ventilatory defect with a moderate diffusion impairment. This may have been the result of his underlying COVID infection back in the fall. Still the patient also has pulmonary nodules and has had some weight loss. Therefore to address the pulmonary nodules the restrictive lung disease and the weight loss will request a CT scan of the chest at this time. The patient is also concerned because his brother recently was diagnosed with stage IV lung cancer. 04/20/2024 the patient is here for a pulmonary follow-up visit. 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 It is very painful and swollen. He did have a biopsy. The patient has not been able to use his CPAP because of the cancer in his year and now is going to surgery. I did reach out to [facility] to explain to them that in view of the ear cancer and not able to wear the head gear will going to have to hold the PAP therapy at this time. He does have significant sleep apnea and he is struggling with daytime drowsiness now that he has not using it. His Crumrod score is elevated 11/24. Therefore he definitely needs to use the CPAP right now with his ear cancer and swelling around it in be impossible for him to wear the head gear. Does no other mask head gear that he can wear based on the location of the cancer. The patient also had a CT scan of the chest as a follow-up for his CT scan back in 12/29/2023 where showed a 7 mm pulmonary nodule in the right lower lobe that was increasing in size. He did have a recent CT scan we did review it although has not been officially read yet. It appears that the right lower lobe pulmonary nodule has increased further and size now measuring little bit more than 8 mm in size. Will wait for the final read but if the reading is consistent with the increase into 8 mm in size then we will request a PET scan to further address the possibility of hypermetabolic lesion and cancer. The patient will undergo surgery for his ear and skin cancer in the coming weeks. And then he will also need Plastic surgery. He has a lot going on as his brother recently also from stage IV renal cell carcinoma. After the final report of the CT scan call him and let him know either we are going to do a PET scan measuring 8 mm in size or larger or if it appears to be stable to the radiologist points review then will repeat the CT scan in 3 months. 07/26/2024 the patient is here for pulmonary follow-up visit. Since we last spoke he did have his surgery for his squamous cell carcinoma of the skin of the left ear. Ultimately had to undergo plastic surgery. It was a complex surgery lasting about 5 hours. They had a graft taken from his left thigh. The area still healing. His ear canals pretty close after the surgery. He did go to [place] to see if he need radiation but due to the fact that the recurrence rate would only be about 6-8% it was decided to hold off therapy. The patient has been doing well otherwise. He had a CT scan of the chest back in 04/28/2024. It. That the pulmonary nodule had not changed still 7 mm in size. Therefore we held on any additional testing at that point. More recently in May the patient did have a CT scan of the chest at [facility]. Based on the history the cancer and the size of the nodule which is intermediate in size he should get a CT scan 6 months from his last 1. Therefore will plan to do that at [facility] to try to maintain the CT scans closer to his oncologist. He was also on happy with the fact that it took so long for the CT scan to be read in the 1st place. The patient has not been able to use his CPAP because of his ear surgery. Therefore he is waking up tired. His Crumrod score is elevated 11/24. We did talk about alternatives to CPAP such as a mandibular advancement device. He will talk to his dentist regarding that. In meantime will try positional therapy. But, right now CPAP is not recommended based on his surgery. [facility] Medical History (Updated 11/25/23 @ 10:33 by Grover Barbosa MD) Chronic restrictive lung disease Chronic cough Weight loss Splenomegaly Polycythemia Pulmonary nodule [place]ICO on CPAP Chronic allergic rhinitis Social History (Updated 05/21/21 @ 10:16 by STEPHON Vega) Patient Tobacco Use Status: Never used Tobacco Review of Systems Const Reports daytime sleepiness, Reports difficulty sleeping and Denies night sweats ENT Denies change in voice, Denies lip swelling, Denies mouth pain, Reports nasal congestion, Reports nasal discharge, Reports post nasal drip and Denies tongue swelling Card Denies chest pain and Reports dyspnea on exertion Resp Reports cough and Reports dyspnea on exertion GI Denies abdominal pain Musc Denies no additional complaints Skin/Breast Reports lesions Neuro Denies Neuro-related abnormal movements Psych Denies no additional complaints Asa/Lymph Denies easy bleeding and Denies lymphadenopathy Aller/Immun Denies lip swelling and Denies tongue swelling Physical Exam Vital Signs: Last Vital Signs Pulse 67 07/26/24 10:06 BP 110/70 07/26/24 10:06 Pulse Ox 100 07/26/24 10:06 Oxygen Delivery Method Room Air 07/26/24 10:06 BMI result Body Mass Index 28.0 Const General: alert HEENT Ears: external ear abnormal auricular tenderness, pain with movement of external ear and other Eyes Pupils: Equal, round and reactive pupils present Neck Neck: Yes supple Chest Chest palpation & inspection: normal inspection of the chest Resp Effort & Inspection: normal respiratory effort Auscultation: diminished lung sounds Cardio Rate: regular rate Rhythm: regular rhythm Heart sounds: S1 normal heart sound present and S2 normal heart sound present GI Palpation (GI): Soft to palpation and nontender Auscultation: normal bowel sounds Skin General skin exam: rashes and/or lesions noted Neuro Cranial nerves: Yes Equal, round and reactive pupils present Assessment & Plan Assessment & Plan (1) Chronic restrictive lung disease: Code(s): J98.4 - Other disorders of lung Category: Medical (2) Weight loss: Code(s): R63.4 - Abnormal weight loss Category: Medical (3) Pulmonary nodule: Code(s): R91.1 - Solitary pulmonary nodule Category: Medical (4) [place]ICO on CPAP: Code(s): G47.33 - Obstructive sleep apnea (adult) (pediatric); Z99.89 - Dependence on other enabling machines and devices Category: Medical (5) Chronic allergic rhinitis: Code(s): J30.9 - Allergic rhinitis, unspecified Category: Medical (6) Chronic cough: Code(s): R05.3 - Chronic cough Category: Medical Plan holding APAP 4-6. N30 small due to ear skin CA/surgery. Start positional therapy consider oral mandibular device Continue nasal fluticasone nasal spray, ipratropium nasal spray pain management CT chest in 11/2024 at [facility] F/U 6 months Coding Level of Care Code Est Pt Level 4 (96188) Diagnoses Chronic restrictive lung disease J98.4 Weight loss R63.4 Pulmonary nodule R91.1 [place]ICO on CPAP G47.33; Z99.89 Chronic allergic rhinitis J30.9 Chronic cough R05.3 Time Spent (min) 16
[2024-07-26 10:06] VITALS: BP 110/70; PULSE 67; O2SAT 100; BMI 28.0
== END 2024-07-26 10:36 | disposition home or self-care (01) ==
PROVIDERS: PCP Hospitalist; Visit Provider Hospitalist
DX: J98.4 Other disorders of lung (principal); R63.4 Abnormal weight loss; R91.1 Solitary pulmonary nodule; G47.33 Obstructive sleep apnea (adult) (pediatric); Z99.89 Dependence on other enabling machines and devices; J30.9 Allergic rhinitis, unspecified; R05.3 Chronic cough
CPT/HCPCS: 99214

== ENCOUNTER → 2024-07-26 10:03 | Outpatient (BNVA) | payer MEDICARE, SELFPAY | PROVIDERS: PCP Hospitalist; Visit Provider Hospitalist | DX: J98.4 Other disorders of lung (principal); J30.9 Allergic rhinitis, unspecified; G47.33 Obstructive sleep apnea (adult) (pediatric); R91.1 Solitary pulmonary nodule; R63.4 Abnormal weight loss; R05.3 Chronic cough; Z99.89 Dependence on other enabling machines and devices | CPT/HCPCS: 99212 ==

== ENCOUNTER 2025-01-03 09:36 | Outpatient (AMB) | payer MEDICARE, SELFPAY ==
[2025-01-03 09:51] VITALS: BP 118/54; PULSE 68; O2SAT 98; BMI 28.6
--- NOTE | 2025-01-03 09:51 | MHC.OFFVIS ---
Vital Signs 01/03/25 09:51 Height 5 ft 10 in Weight 199 lb 8.293 oz BMI 28.6 BP 118/54 L Blood Pressure Location Rt brachial Position Sitting Pulse 68 Pulse Source Pulse Oximeter Pulse Oximetry (%) 98 Oxygen Delivery Method Room Air Intake Visit Reasons: Pulmonry Nodules Allergies doxycycline Allergy (Severe, Verified 01/03/25 09:55) nausea and vomiting Cipro Allergy (Severe, Uncoded 01/03/25 09:55) Diarrhea Penicillin Allergy (Severe, Uncoded 01/03/25 09:55) Rash HPI Comments Details: The patient is a 74-year-old gentleman known CHICO, chronic rhinitis in the in addition to pulmonary nodules. In regards of is CPAP the CPAP therapy has been affecting beneficial. However, he doesn't seem to be able to tolerated the whole night. We did request a download showing that he has apnea is improved dramatically with an AHI of less than 1. His average pressure is around 6 to 9. The therapy has been affecting beneficial. At this point will try to minimize the pressures to minimize difficulties tolerating it the whole night. I also think that he needs a new mask. I did recommend the dreamwear fullface mask. In regards to the pulmonary nodules he is last CT scan of the chest was done at [facility] back in February 2019 demonstrating stable pulmonary nodules and interstitial changes when compared to 2016. He has been having issues with nasal congestion. He stop the Astelin nasal spray. He is continue the ipratropium. At this point he has nasal congestion is worse. 05/15/2020. The patient is here for pulmonary follow-up visit. Overall the patient is doing okay. He was having issues with fatigue and was noted to have some anemia. For the anemia workup included a CT scan of the chest. This time had at [facility] where again diff on the right lower lobe nodular density and also some lymphadenopathy. He is scheduled to undergo a repeat CT scan next week. In the office we did look at the CT scan from February 2019 from [facility] demonstrating similar findings with the parenchymal density, but, will see if there is any changes in the lymphadenopathy appreciated on the recent CT scan. In regards to his obstructive sleep apnea he still struggling with the CPAP. He tries to use it but then takes it off after 1-2 hours. We did switch his APAP to a CPAP pressure of 7 cm and a ramp before. Hopefully, he can tolerate that pressure knowing that a average pressure 6.5 decrease his AHI to 0.9 which is very reassuring. If he cannot tolerate that pressure he can decrease the pressure to 6 or call me and I can decrease the pressure for him. I did provide him with a different mask N30i that he can try as well and see if improves his overall tolerance of the PAP therapy. He also mentions that he had of bloody nose. He was evaluated by ENT. He did have increased vascularity and dryness. Hopefully now in the summertime should be doing okay. Will monitor closely may need of additional humidification or lubrication of the nasal passages for the winter months. He has been evaluated further by the oncologist and did undergo a repeat CT scan of the chest sometime in March 2020 demonstrating still the persistent abnormal finding in the right lower lobe. Has not appear to have changed. In addition to that on examination he continues to have this persistent 3/6 holosystolic murmur radiating to the apex suggestive of a mitral regurgitation murmur. He will be following up with primary care doctor soon, therefore, our request an echocardiogram for them to have available to review and can also reviewed myself as well. 11/15/2020 the patient is here for pulmonary follow-up visit. Overall he is doing very well. He lost significant amount of weight. Partly is because he may need lifestyle changes and will has been exercising more. He also has lost some appetite. He has had imaging studies of his chest, last September 2020 demonstrating interval decrease in the nodular density of his lungs which is very reassuring consistent with the findings that he has had a previous CAT scans from [facility]. His main complaint is that he is having significant nasal congestion. He had also some issues with epistaxis. He has been using the fluticasone with no significant improvement. He has used the attributed nasal spray in the past and also the Astelin but no longer. The patient has not had any allergy testing either. He continues uses CPAP. The CPAP therapy continues to be affecting beneficial. Although the nasal congestion does bother him. He does uses CPAP for more than 4 hours a night. At this point will treat his nasal therapies with ipratropium and also the Astelin can stop the fluticasone. He should be able rinses nose prior to putting on CPAP. Will send him for blood work for further allergy testing. 05/21/2021 the patient is here for a pulmonary follow-up visit. He continues to do very well. Although he continues to lose weight. He states that he has not changed his eating habits and he good appetite. He has been more active walking the golf course more regularly about 5 times a week now he is retired. He has had a workup from his primary care provider oncologist. Currently we did review his CT scan of the chest from [facility] that he had back in 2019 and did demonstrate a benign looking area in the esophagus. This point he is scheduled to undergo an endoscopy which will be helpful to further address that issue. In the meantime will follow his pulmonary nodules. They stable in the past with the weight loss I will request repeat scan this time. In addition to that he will be following up with endocrinology soon. He does describe in addition to weight loss loss and strength. From a nasal congestion standpoint used to using it 3 nasal sprays. Did do help although he prefers not to taking. I did recommend that if he has episodes of worsening nasal congestion he can also try Sudafed. In the meantime he continues uses CPAP. The CPAP therapy continues to be affecting beneficial. He is tolerating it well. He is wondering with weight loss if he still needs it. My recommendation is that if he is tolerating CPAP he to use continue using it. Hold off on sleep study at this time. Will have the patient return in the fall after her CT scan of the chest. 03/26/2023 the patient is here for pulmonary follow-up visit. The patient had a tough winter. He had a respiratory illness briefly that resulted in significant shortness of breath and cough. He did call the office and we did recommend he go to the his primary care since we did not have any availability. The patient currently is doing better. His main complaint always that he has significant nasal congestion and postnasal drip. Moderate to severe. For the most part thin liquid secretions. He did try the petroleum nasal spray with only partial resolution. The patient states that he has been using CPAP at nighttime. Although sometimes difficult for him to tolerated. We did download the machine on he does use it every night but seems to take it off in the middle the night. He does not understand or remember why. Most likely is because the pressure is going up. We did download the machine and appears that his AHI is well below 1 and his average pressure is around 6-7 cm water. Patient likely takes it off when he goes higher than that. In addition to this seems like his current CPAP is not working properly. HIs CPAP is older than 8 years. Will request for placement resmed machine at this time the patient will bring in his new machine when he comes into the next visit. 07/29/2023 the patient is here for pulmonary follow-up visit. Overall the patient has been doing well from a respiratory status. Although he says that he typically has a hard time breathing in the winter time. He has had that difficulty breathing for the last 2 years. This time will reassess him during the winter months. However he still struggling with CPAP mask. The mask is leaking out air into his and then last waking her up. Also the elevated pressures are bothering him he has to reset the machine. Otherwise CPAP therapy has been affecting beneficial. He does use an N20 mask. I do see with the escape air is coming out of the from the mask. I did provide him with an N30 I mask that allows on last the wreck [place] of the air so hopefully his 1 be affected by a. He tolerated the mask well in the office. He stated I small mask very well. The pressures were adjusted as well from CPAP of 7 to a CPAP APAP 4-6. His AHI was down to 0. He as far as his chest x-ray back in March it was our read as no acute disease. Therefore no edema imaging is warranted. His breathing is okay right now. Will have him come back in the winter time with pulmonary function studies. 11/25/2023 the patient is here for a pulmonary follow-up visit. The patient has had a hard time since the fall. He developed COVID-19 and subsequently after that developed a worsening cough and shortness of breath. It was hard for him to go 1 flight of stairs. The patient still struggles with that. Because of the cough was so persistent he was not able to uses CPAP regularly. Therefore, he was not been using it. Did get a letter from [facility] that he had to use it otherwise will going to take it away. He did bring the machine in and we did download the data. The last 30 days he used it about 90% of the time in is average uses definitely more than 4 hours. His AHI is down to 0.3 and therefore the therapy has been affecting beneficial. I did call Michael and L to make sure that the machine does not get taking away. In the meantime he did undergo pulmonary function studies. He appears to have restrictive ventilatory defect with a moderate diffusion impairment. This may have been the result of his underlying COVID infection back in the fall. Still the patient also has pulmonary nodules and has had some weight loss. Therefore to address the pulmonary nodules the restrictive lung disease and the weight loss will request a CT scan of the chest at this time. The patient is also concerned because his brother recently was diagnosed with stage IV lung cancer. 04/20/2024 the patient is here for a pulmonary follow-up visit. 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 It is very painful and swollen. He did have a biopsy. The patient has not been able to use his CPAP because of the cancer in his year and now is going to surgery. I did reach out to [facility] to explain to them that in view of the ear cancer and not able to wear the head gear will going to have to hold the PAP therapy at this time. He does have significant sleep apnea and he is struggling with daytime drowsiness now that he has not using it. His Pendleton score is elevated 11/24. Therefore he definitely needs to use the CPAP right now with his ear cancer and swelling around it in be impossible for him to wear the head gear. Does no other mask head gear that he can wear based on the location of the cancer. The patient also had a CT scan of the chest as a follow-up for his CT scan back in 12/29/2023 where showed a 7 mm pulmonary nodule in the right lower lobe that was increasing in size. He did have a recent CT scan we did review it although has not been officially read yet. It appears that the right lower lobe pulmonary nodule has increased further and size now measuring little bit more than 8 mm in size. Will wait for the final read but if the reading is consistent with the increase into 8 mm in size then we will request a PET scan to further address the possibility of hypermetabolic lesion and cancer. The patient will undergo surgery for his ear and skin cancer in the coming weeks. And then he will also need Plastic surgery. He has a lot going on as his brother recently also from stage IV renal cell carcinoma. After the final report of the CT scan call him and let him know either we are going to do a PET scan measuring 8 mm in size or larger or if it appears to be stable to the radiologist points review then will repeat the CT scan in 3 months. 07/26/2024 the patient is here for pulmonary follow-up visit. Since we last spoke he did have his surgery for his squamous cell carcinoma of the skin of the left ear. Ultimately had to undergo plastic surgery. It was a complex surgery lasting about 5 hours. They had a graft taken from his left thigh. The area still healing. His ear canals pretty close after the surgery. He did go to [place] to see if he need radiation but due to the fact that the recurrence rate would only be about 6-8% it was decided to hold off therapy. The patient has been doing well otherwise. He had a CT scan of the chest back in 04/28/2024. It. That the pulmonary nodule had not changed still 7 mm in size. Therefore we held on any additional testing at that point. More recently in May the patient did have a CT scan of the chest at [facility]. Based on the history the cancer and the size of the nodule which is intermediate in size he should get a CT scan 6 months from his last 1. Therefore will plan to do that at [facility] to try to maintain the CT scans closer to his oncologist. He was also on happy with the fact that it took so long for the CT scan to be read in the 1st place. The patient has not been able to use his CPAP because of his ear surgery. Therefore he is waking up tired. His Pendleton score is elevated 11/24. We did talk about alternatives to CPAP such as a mandibular advancement device. He will talk to his dentist regarding that. In meantime will try positional therapy. But, right now CPAP is not recommended based on his surgery. 01/03/2025 the patient is here for a pulmonary follow-up visit. 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 He is going to start immune therapy and subsequently after that will have surgery in [place]. He was told that this is potentially curative so he is reassured. In the meantime the found other little spots with squamous cell carcinoma and he will need to have surgery for those skin cancers as well. From a CPAP standpoint he has some difficulties tolerating the mask because of the CT skin cancer of his ear. Will did provide him with an AirTouch N30i mask medium that felt well and did not touch his ear. I am hoping that he tolerates this better. He is also complaining of a dry persistent cough. Moderate severity. He does have a postnasal drip consistent with upper airway cough syndrome. He has been using fluticasone and also ipratropium nasal spray. Can increase the ipratropium nasal spray for now. He is also having some wheezing which may be worsening due to the new therapy so therefore give him an inhaler. He can also use some codeine cough syrup that will help him with the cough and also provide some relief. [facility] Medical History (Updated 01/03/25 @ 14:08 by Grover Barbosa MD) Squamous cell skin cancer, earlobe Chronic restrictive lung disease Chronic cough Weight loss Splenomegaly Polycythemia Pulmonary nodule CHICO on CPAP Chronic allergic rhinitis Social History Patient Tobacco Use Status: Never used Tobacco Review of Systems Const Reports daytime sleepiness, Reports difficulty sleeping and Denies night sweats ENT Reports as per HPI, Denies change in voice, Denies lip swelling, Denies mouth pain, Reports nasal congestion, Reports nasal discharge, Reports post nasal drip and Denies tongue swelling Card Denies chest pain and Reports dyspnea on exertion Resp Reports cough and Reports dyspnea on exertion GI Denies abdominal pain Musc Denies no additional complaints Skin/Breast Reports lesions Neuro Denies Neuro-related abnormal movements Psych Denies no additional complaints Asa/Lymph Denies easy bleeding and Denies lymphadenopathy Aller/Immun Denies lip swelling and Denies tongue swelling Physical Exam Vital Signs: Last Vital Signs Pulse 68 01/03/25 09:51 BP 118/54 L 01/03/25 09:51 Pulse Ox 98 01/03/25 09:51 Oxygen Delivery Method Room Air 01/03/25 09:51 BMI result Body Mass Index 28.6 Const General: alert HEENT Ears: external ear abnormal auricular tenderness, pain with movement of external ear and other Eyes Pupils: Equal, round and reactive pupils present Neck Neck: Yes submandibular swelling Chest Chest palpation & inspection: normal inspection of the chest Resp Effort & Inspection: normal respiratory effort Auscultation: wheezes and diminished lung sounds Cardio Rate: regular rate Rhythm: regular rhythm Heart sounds: S1 normal heart sound present and S2 normal heart sound present GI Palpation (GI): Soft to palpation and nontender Auscultation: normal bowel sounds Skin General skin exam: rashes and/or lesions noted Neuro Cranial nerves: Yes Equal, round and reactive pupils present Assessment & Plan Assessment & Plan (1) Chronic restrictive lung disease: Code(s): J98.4 - Other disorders of lung Category: Medical (2) Weight loss: Code(s): R63.4 - Abnormal weight loss Category: Medical (3) Pulmonary nodule: Code(s): R91.1 - Solitary pulmonary nodule Category: Medical (4) CHICO on CPAP: Code(s): G47.33 - Obstructive sleep apnea (adult) (pediatric); Z99.89 - Dependence on other enabling machines and devices Category: Medical (5) Chronic allergic rhinitis: Code(s): J30.9 - Allergic rhinitis, unspecified Category: Medical (6) Chronic cough: Code(s): R05.3 - Chronic cough Category: Medical (7) Squamous cell skin cancer, earlobe: Comment: with local spread to the parotid gland and adjacent LNs Code(s): C44.221 - Squamous cell carcinoma of skin of unspecified ear and external auricular canal Category: Medical Qualifiers: Laterality: left Qualified Code(s): C44.229 - 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 and external auricular canal Plan APAP 4-6. Probided a N30 airtouch that he can try again, if not to go back to his n20 Continue nasal fluticasone nasal spray, ipratropium nasal spray cough medicine JEAN as needed CT chest at [facility] F/U 6 months Medications: New codeine-guaifenesin 10-100 mg/5 mL 10 mL PO Q6H PRN 300 mL 0RF cough 10 days albuterol sulfate 90 mcg/actuation 2 inhalations inhalation Q6H PRN 18 grams 12RF shortness of breath or wheezing 30 days J44.9 - Chronic obstructive pulmonary disease, unspecified Coding Level of Care Code Est Pt Level 4 (09526) Complex EM visit Add On G2211 Diagnoses Chronic restrictive lung disease J98.4 Weight loss R63.4 Pulmonary nodule R91.1 CHICO on CPAP G47.33; Z99.89 Chronic allergic rhinitis J30.9 Chronic cough R05.3 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lobe C44.229 Laterality: left Time Spent (min) 17
--- OUTSIDE RECORDS SUMMARY | 2025-01-03 10:48 | XMS_ITS | Encounter Summary ---
Author Organization [facility] Address [address] [place] [address] Care Team Providers Care Master Data Analyst Name Role Phone Mariely Vargas MD Primary Care Provider [phone] Encounter Details Date Type Department Care Team (Late st Contact Info) Description 10/14/[address] [facility] - Main Lab [address] [place] [phone] Dorie Thompson, [place] [address] [id number] Frequency of micturition Social History Tobacco Use Types Packs/Day Years Used Date Smoking Tobacco: Never Smokeless Tobacco: Never Alcohol Use Standard Drinks/Week Comments No 0 (1 standard drink = 0.6 oz pur e alcohol) Sex and Gender Information Value Date Recorded Sex Assigned at Not on file Legal Sex Male 3:50 AM EST Gender Identity Not on file Sexual Orientation Not on file documented as of this encounter Plan of Treatment Upcoming Encounters Date Type Department Care Team (Late st Contact Info) Description 03/21/2025 9:45 AM EDT Office Visit [facility] Hematology Oncology [address] [place] [phone] Lor Bal MD [address] [place] [address] documented as of this encounter Procedures Procedure Name Priority Date/Time Associated Diagnosis Comments BACTERIAL IDENTIFICATION AND SUSCEPTIBILITY, AEROBIC Routine 10/13/2024 12:00 AM EST Frequency of micturition documented in this encounter Results * (ABNORMAL) Bacterial identification and susceptibility, aerobic (10/13/2024 12:00 AM EST) Culture, Bacterial ID and Sensitivity Klebsiella pneumoniae ssp pneumoniae(A) LOVE 10/15/2024 9:39 AM EST [facility] Comment: This is an edited result. Previous organism was Gram negative bacilli on 10/14/2024 at 1131 EST. Other Topography unknown / Unknown 10/13/2024 10/14/2024 10:31 AM EST Narrative Organism Antibiotic Method Susceptibility Klebsiella pneumoniae ssp pneumoniae Amoxicillin/Clavulanate LOVE 4 ug/ml: Susceptible Klebsiella pneumoniae ssp pneumoniae Ampicillin/Sulbactam LOVE >=32 ug/ml: Resistant Klebsiella pneumoniae ssp pneumoniae Piperacillin/Tazobactam LOVE 16 ug/ml: Intermediate Klebsiella pneumoniae ssp pneumoniae Cefazolin (Urine) LOVE 4 ug/ml: Susceptible Klebsiella pneumoniae ssp pneumoniae Cefoxitin LOVE >=64 ug/ml: Resistant Klebsiella pneumoniae ssp pneumoniae Ceftazidime LOVE <=0.5 ug/ml: Susceptible Klebsiella pneumoniae ssp pneumoniae Ceftriaxone LOVE <=0.25 ug/ml: Susceptible Klebsiella pneumoniae ssp pneumoniae Cefepime LOVE <=0.12 ug/ml: Susceptible Klebsiella pneumoniae ssp pneumoniae Meropenem LOVE <=0.25 ug/ml: Susceptible Klebsiella pneumoniae ssp pneumoniae Amikacin LOVE <=1 ug/ml: Susceptible Klebsiella pneumoniae ssp pneumoniae Gentamicin LOVE <=1 ug/ml: Susceptible Klebsiella pneumoniae ssp pneumoniae Ciprofloxacin LOVE 0.5 ug/ml: Intermediate Klebsiella pneumoniae ssp pneumoniae Levofloxacin LOVE 1 ug/ml: Intermediate Klebsiella pneumoniae ssp pneumoniae Nitrofurantoin LOVE 128 ug/ml: Resistant Klebsiella pneumoniae ssp pneumoniae Trimethoprim/Sulfamethoxazo le LOVE >=320 ug/ml: Resistant us [facility] MICROBIOLOGY - GENERAL ORDER KEVIN Final [facility] [address] [place] [address], [place] [phone] documented in this encounter Visit Diagnoses Diagnosis Frequency of micturition Urinary frequency documented in this encounter Care Teams Master Data Analyst Relationship Specialty Start Date End Date Mariely Vargas MD [address] [place] [address] PCP - General 05/29/22 documented as of this encounter
--- OUTSIDE RECORDS SUMMARY | 2025-01-03 10:48 | XMS_ITS ---
Author Organization [facility] Address [address] [address] Care Team Providers Care A&P Mechanic Name Role Phone TROY LOBO Primary Care Provider REASON FOR VISIT General surgery referral Encounters Encounter Location Date Provider Diagnosis [facility] [address] [address] 09/07/2024 TROY LOBO Plan Of Treatment Next Appt Details Provider Name:TROY LOBO , 09/04/2025 10:00:00 AM, [address] [address], [place], [address], Progress Notes * FEDERICO JOHNSONDOB:1950 ([age] yo M)Acc No.[id number]:09/07/2024 Patient:?FEDERICO JOHNSON :1950???Age:73 Y???Sex:Male Address: [place], [place] * true * Date:? Generated for Jose Ai yosef/Casandra/eTransmitting on:?01/03/2025 10:48 AM EST
--- OUTSIDE RECORDS SUMMARY | 2025-01-03 10:48 | XMS_ITS ---
Author Organization [facility] Address [address] [facility] [address] [place] [address] Care Team Providers Care Vice President Lending Name Role Phone TROY LOBO Primary Care Provider REASON FOR VISIT prescription assistance Encounters Encounter Location Date Provider Diagnosis [address] [place] [address] 01/14/2024 TROY LOBO Plan Of Treatment Next Appt Details Provider Name:TROY LOBO , 09/04/2025 10:00:00 AM, [address] [facility] [address], [place], [address], Progress Notes * FEDERICO JOHNSONDOB:1950 ([age] yo M)Acc No.[id number]:01/14/2024 Patient:?FEDERICO JOHNSON :1950???Age:73 Y???Sex:Male Address:[address] [place], [place] [address], [place] * true * Date:? Generated for Jose Ai yosef/Casandra/eTransmitting on:?01/03/2025 10:47 AM EST
--- OUTSIDE RECORDS SUMMARY | 2025-01-03 10:48 | XMS_ITS | Clinical Summary ---
Author Organization [facility] Address [address] [place] [address] Phone Care Team Providers Care Diesel Engine Engineer Name Role Phone Mariely Vargas MD Primary Care Provider [phone] Allergies Active Allergy Reactions Criticality Noted Date Comments Ciprofloxacin 05/22/2017 Doxycycline 05/22/2020 Penicillins 05/22/2017 Medications aspirin 81 mg EC tablet Take 1 tablet (81 mg total) by mouth daily. Active folic acid (FOLVITE) 1 mg tablet TAKE 1 TABLET BY MOUTH EVERY DAY 04/14/20 22 Active levothyroxine (SYNTHROID, LEVOTHROID) 25 mcg tablet TAKE 1 TABLET BY MOUTH EVERY DAY 05/20/20 22 Active loperamide (IMODIUM) 2 mg capsule Take 1 capsule (2 mg total) by mouth 4 (four) times a day as needed for diarrhea. Active omeprazole (PriLOSEC) [address] capsule Take 1 capsule (20 mg total) by mouth daily. Active sodium phosphate,mono- dibasic (SODIUM PHOSPHATES ORAL) Take 2 Sprays by mouth every 2 hours as needed. Active Lactobacillus acidophilus (PROBIOTIC ORAL) Take by mouth. Active UNABLE TO FIND CPAP- inhale into the lungs . [employer] pressure Active ascorbic acid (VITAMIN C) 500 mg chewable tablet Take 1 tablet (500 mg total) by mouth daily. Active dicyclomine (BENTYL) 10 mg capsule Take 1 capsule (10 mg total) by mouth 4 (four) times a day before meals and at bedtime. Active Lactobac no.41/Bifidobac t no.7 (PROBIOTIC-10 ORAL) Take by mouth Active cephalexin (KEFLEX) 500 mg capsule Take 1 capsule (500 mg total) by mouth 2 (two) times a day. 09/26/20 24 Active hydrOXYzine pamoate (VISTARIL) 25 mg capsuleIndicati ons:Myelofibros is (CMS/HCC),PV (polycythemia vera) (CMS/HCC) TAKE 1 CAPSULE (25 MG TOTAL) BY MOUTH 3 (THREE) TIMES A DAY NEEDED. 90 capsule 1 11/03/20 24 Active allopurinoL (ZYLOPRIM) 100 mg tablet Take 100 mg by mouth daily. 025 Discontinued hyoscyamine (LEVBID) 0.375 mg 12 hr tablet Take 1 tablet (0.375 mg total) by mouth every 12 (twelve) hours as needed for cramping. 025 Discontinued LORazepam (ATIVAN) 0.5 mg tablet Take 1 tablet (0.5 mg total) by mouth every 6 (six) hours as needed. 05/17/20 24 025 Discontinued hydroxyurea (HYDREA) 500 mg capsule Take 2 capsules (1,000 mg total) by mouth 1 (one) time each day Take at the same time each day. 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 05/10 Nephrolithiasis 10/28/2022 Splenomegaly 10/28/2022 Deep venous thrombosis 07/29/2022 Overview (12/18/2022): 1998 at time of DX PV Myelofibrosis 07/29/2022 Post-phlebitic syndrome 07/29/2022 Pulmonary embolus 07/29/2022 Thrombocytosis 06/26/2020 Irritable bowel syndrome with diarrhea 0 Lung nodule 05/22/2020 Irritable bowel syndrome 12/29/2017 Kidney disease 12/29/2017 Obstructive sleep apnea syndrome 12/29/2017 Overview (12/18/2022): CPAP Pulmonary nodules 12/29/2017 Skin cancer of nose 12/29/2017 Overview (12/18/2022): Type of cancer not indicated, removed 09/2013 Acquired hypothyroidism 05/26/2017 Chronic gout 05/26/2017 Hyperglycemia 05/26/2017 CHICO (obstructive sleep apnea) 05/26/2017 PV (polycythemia vera) 05/26/2017 Prostate cancer 05/26/2017 Encounters Date Type Department Care Team Description 12/23/2024 3:15 PM EST Office Visit [facility] Hematology Oncology [address] [place] [address] Lor Loo MD 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 (Primary Dx); Acute deep vein thrombosis (DVT) of other specified vein of right lower extremity (CMS/HCC); Prostate cancer (CMS/HCC); Multiple subsegmental pulmonary emboli without acute cor pulmonale (CMS/HCC); Thrombocytosis; Anemia in other chronic diseases classified elsewhere 12/19/2024 Telephone [facility] Hematology Oncology [address] [place] [phone] Lor Loo MD 10/31/2024 Telephone [facility] Hematology Oncology [address] [place] [phone] Lor Loo MD 10/25/2024 9:30 AM EST Office Visit [facility] Hematology Oncology [address] [place] [phone] Lor Loo MD PV (polycythemia vera) (CMS/HCC) (Primary Dx); Myelofibrosis (CMS/HCC); Splenomegaly; Prostate cancer (CMS/HCC); Multiple subsegmental pulmonary emboli without acute cor pulmonale (CMS/HCC); 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 - Main Lab [address] [facility] [place] [phone] Dorie Thompson, PA Frequency of micturition from Last 3 Months Surgical History Surgery Date Site/Laterality Comments PROSTATE SURGERY PROCEDURE:PROSTATE SURGERY Medical History Medical History Date Comments Obstructive sleep apnea (adult) (pediatric) DX:Obstructive sleep apnea (adult) (pediatric) Polycythemia DX:Polycythemia Hypothyroidism DX:Hypothyroidis m Hyperglycemia DX:Hyperglycemia Prostate cancer (CMS/HCC) DX:Pro state cancer (HCC) Family History Medical History Relation Name Comments Diabetes Brother 1 No Known Problems Brother 2 Relation Name Status Comments Brother 1 Brother 2 Alive Social History Tobacco Use Types Packs/Day Years Used Date Smoking Tobacco: Never Smokeless Tobacco: Never Alcohol Use Standard Drinks/Week Comments No 0 (1 standard drink = 0.6 oz pur e alcohol) Sex and Gender Information Value Date Recorded Sex Assigned at Not on file Legal Sex Male 3:50 AM EST Gender Identity Not on file Sexual Orientation Not on file Obstetrics History Last Filed Vital Signs Vital Sign Reading Time Taken Comments Blood Pressure 130/52 12/23/2024 3:18 PM EST Pulse 72 12/23/2024 3:18 PM EST Temperature 36.1 ??C (97 ??F) 12/23/2024 3:18 PM EST Respiratory Rate - - Oxygen Saturation 99% 12/23/2024 3:18 PM EST Inhaled Oxygen Concentration - - Weight 88.9 kg (196 lb) 12/23/2024 3:18 PM EST Height 180.3 cm (5' 11 ) 08/02/2024 9:47 AM EDT Body Mass Index 27.34 08/02/2024 9:47 AM EDT Plan of Treatment Upcoming Encounters Date Type Department Care Team (Late st Contact Info) Description 03/21/2025 9:45 AM EDT Office Visit [facility] Hematology Oncology [address] [place] [phone] Lor Bal MD [address] [place] [phone] Health Maintenance Due Date Last Done Comments Diabetes: Annual Foot Exam 1961 Diabetes: Annual Retina Eye Exam 1961 DTaP,Tdap,and Td Vaccines (1 - Tdap) 1970 Pneumococcal Vaccine: 50+ Years (1 of 2 - PCV) 1970 Zoster Vaccines (1 of 2) 1970 RSV Immunization Patients 60+ Years Old (1 - Risk 60-74 years 1-dose series) 2011 Colorectal Cancer Screening: Colonoscopy 10/16/2022 Depression Screening 10/16/2022 Falls Risk Assessment 10/16/2022 Hepatitis C Screening 10/16/2022 Social Influencers of Health Screening 10/16/2022 Medicare Annual Wellness Visit 08/22/2023 08/22/2022 COVID-19 Vaccine ( season) 2024 09/04/2022, 03/06/2022, 08/22/2021, Additional history exists Diabetes: Blood Sugar Control Test (HGBA1C) 10/19/2024 12/31/2023 Diabetes: Annual Urine Albumin-Creatinine Ratio (uACR) 07/28/2025 07/28/2024, 12/31/2023, 12/31/2023 Diabetes: Annual GFR (Glomerular Filtration Rate) 10/19/2025 10/19/2024, 07/28/2024, 12/31/2023, Additional history exists Cholesterol Screening (Lipid Panel) 12/31/2028 12/31/2023, 12/31/2023 Influenza Vaccine Completed 09/02/2024, , 08/29/2022, Additional history exists HIB Vaccines Aged Out No longer eligi ble based on patient's age to complete this topic HPV Vaccines Aged Out No longer eligi ble based on patient's age to complete this topic Hepatitis A Vaccines Aged Out No long er eligible based on patient's age to complete this topic Hepatitis B Vaccines Aged Out No long er eligible based on patient's age to complete this topic IPV Vaccines Aged Out No longer eligi ble based on patient's age to complete this topic MMR Vaccines Aged Out No longer eligi ble based on patient's age to complete this topic Meningococcal ACWY Vaccine Aged Out N o longer eligible based on patient's age to complete this topic Meningococcal B Vacine Aged Out No lo nger eligible based on patient's age to complete this topic RSV Immunization Patients Under 20 months Aged Out No longer eligible based on patient's age to complete this topic Varicella Vaccines Aged Out No longer eligible based on patient's age to complete this topic Procedures Procedure Name Priority Date/Time Associated Diagnosis Comments MANUAL DIFFERENTIAL - SYSMEX WAM Routine 10/19/2024 1:12 PM EST Myelofibrosis (CMS/HCC) CBC WITH AUTO DIFFERENTIAL Routine 10/19/2024 1:12 PM EST Myelofibrosis (CMS/HCC) CBC AND DIFFERENTIAL Routine 10/19/2024 1:12 PM EST Myelofibrosis (CMS/HCC) LACTATE DEHYDROGENASE Routine 10/19/2024 1:12 PM EST Myelofibrosis (CMS/HCC) COMPREHENSIVE METABOLIC PANEL Routine 10/19/2024 1:12 PM EST Myelofibrosis (CMS/HCC) BACTERIAL IDENTIFICATION AND SUSCEPTIBILITY, AEROBIC Routine 10/13/2024 12:00 AM EST Frequency of micturition HM URINE ALBUMIN CREATININE RATIO Routine 12/31/2023 HEMOGLOBIN A1C Routine 12/31/2023 LIPID PANEL Routine 12/31/2023 from Last 3 Months or Most Recently Relevant to Health Maintenance Results * (ABNORMAL) Manual differential (10/19/2024 1:12 PM EST) Neutrophils % 84.0 % LAB HEMETOLOGY METHOD 10/19/2024 2:03 PM [facility] Lymphocytes % 11.0 % LAB HEMETOLOGY METHOD 10/19/2024 2:03 PM [facility] Monocytes % 0.0 % LAB HEMETOLOGY METHOD 10/19/2024 2:03 PM [facility] Eosinophils % 0.0 % LAB HEMETOLOGY METHOD 10/19/2024 2:03 PM [facility] Basophils % 4.0 % LAB HEMETOLOGY METHOD 10/19/2024 2:03 PM [facility] Myelocytes % 1.0(H) % LAB HEMETOLOGY METHOD 10/19/2024 2:03 PM [facility] Neutrophils Absolute Manual 8.74(H) 1.50 - 7.00 K/mcL LAB HEMETOLOGY METHOD 10/19/2024 2:03 PM [facility] Lymphocytes Absolute 1.14 1.00 - 5.00 K/mcL LAB HEMETOLOGY METHOD 10/19/2024 2:03 PM [facility] Monocytes Absolute Manual 0.00(L) 0.20 - 1.00 K/mcL LAB HEMETOLOGY METHOD 10/19/2024 2:03 PM [facility] Eosinophils Absolute Manual 0.00 0.00 - 0.50 K/mcL LAB HEMETOLOGY METHOD 10/19/2024 2:03 PM [facility] Basophils Absolute Manual 0.42(H) 0.00 - 0.20 K/mcL LAB HEMETOLOGY METHOD 10/19/2024 2:03 PM [facility] Myelocytes Absolute Manual 0.10(H) 0.00 - 0.00 K/mcL LAB HEMETOLOGY METHOD 10/19/2024 2:03 PM [facility] Rbc Morphology Present( A) Consistent with indices, Normal for Ranger LAB HEMETOLOGY METHOD 10/19/2024 2:03 PM [facility] Platelet Morphology - WAM See Note(A) Normal LAB HEMETOLOGY METHOD 10/19/2024 2:03 PM [facility] Comment:PLT: Normal Ovalocytes Present 11 - 15%(A) (none) LAB HEMETOLOGY METHOD 10/19/2024 2:03 PM [facility] Tear Drop Cells Present 5 - 10%(A) (none) LAB HEMETOLOGY METHOD 10/19/2024 2:03 PM [facility] Blood Venous blood specimen / Unknown Venipuncture / Unknown 10/19/2024 1:12 PM EST 10/19/2024 1:33 PM EST us Lor Bal MD LAB BLOOD ORDERABLE S Final Result [facility] [address] [place] [address], * (ABNORMAL) CBC auto differential (10/19/2024 1:12 PM EST) Pathologist [facility] WBC 10.4 4.8 - 10.8 K/mcL LAB HEMETOLOGY METHOD 10/19/2024 2:03 PM [facility] RBC 3.20(L) 4.50 - 5.50 M/mcL LAB HEMETOLOGY METHOD 10/19/2024 2:03 PM [facility] Hemoglobin 9.9(L) 13.5 - 17.5 g/dL LAB HEMETOLOGY METHOD 10/19/2024 2:03 PM [facility] Hematocrit 32.2(L) 42.0 - 54.0 % LAB HEMETOLOGY METHOD 10/19/2024 2:03 PM [facility] MCV 101.6(H) 79.0 - 98.0 FL LAB HEMETOLOGY METHOD 10/19/2024 2:03 PM [facility] MCH 31.2 27.0 - 32.0 pcg LAB HEMETOLOGY METHOD 10/19/2024 2:03 PM [facility] MCHC 30.7(L) 32.0 - 37.0 g/dL LAB HEMETOLOGY METHOD 10/19/2024 2:03 PM [facility] RDW 20.1(H) 11.0 - 15.0 % LAB HEMETOLOGY METHOD 10/19/2024 2:03 PM [facility] Platelets 305 130 - 400 K/mcL LAB HEMETOLOGY METHOD 10/19/2024 2:03 PM EST [facility] MPV 11.3(H) 7.0 - 11.0 FL LAB HEMETOLOGY METHOD 10/19/2024 2:03 PM EST [facility] NRBC 0.4 <1.0 % LAB HEMETOLOGY METHOD 10/19/2024 2:03 PM EST [facility] NRBC Absolute 0.04 <0.10 K/mcL LAB HEMETOLOGY METHOD 10/19/2024 2:03 PM EST [facility] Blood Venous blood specimen / Unknown Venipuncture / Unknown 10/19/2024 1:12 PM EST 10/19/2024 1:33 PM EST Subdu Bal MD LAB BLOOD ORDERABLE S Final Result Performing Organization Address City/[facility]/ZIP Co de Phone Number [facility] [address] [place] [address], [place] [phone] * (ABNORMAL) Lactate dehydrogenase (10/19/2024 1:12 PM EST) LDH 491(H) 120 - 246 unit/L LAB CHEMISTRY METHOD 10/19/2024 2:04 PM EST [facility] Blood Venous blood specimen / Unknown Venipuncture / Unknown 10/19/2024 1:12 PM EST 10/19/2024 1:33 PM EST Subramnaveed Bal MD LAB BLOOD ORDERABLE S Final Result [facility] [address] [place] [address], [place] [phone] * (ABNORMAL) Comprehensive metabolic panel (10/19/2024 1:12 PM EST) Sodium 141 133 - 145 mmol/L LAB CHEMISTRY METHOD 10/19/2024 2:04 PM EST [facility] Potassium 4.4 3.5 - 5.5 mmol/L LAB CHEMISTRY METHOD 10/19/2024 2:04 PM [facility] Chloride 109 96 - 110 mmol/L LAB CHEMISTRY METHOD 10/19/2024 2:04 PM [facility] CO2 29 21 - 32 mmol/L LAB CHEMISTRY METHOD 10/19/2024 2:04 PM [facility] Anion Gap 3 3 - 11 LAB CHEMISTRY METHOD 10/19/2024 2:04 PM [facility] Glucose 154(H) 70 - 100 mg/dL LAB CHEMISTRY METHOD 10/19/2024 2:04 PM [facility] BUN 16 5 - 25 mg/dL LAB CHEMISTRY METHOD 10/19/2024 2:04 PM [facility] Creatinine 0.78 0.70 - 1.30 mg/dL LAB CHEMISTRY METHOD 10/19/2024 2:04 PM [facility] eGFR 95 >=60 mL/min/1. 73m2 LAB CHEMISTRY METHOD 10/19/2024 2:04 PM [facility] Comment:Calculation based on the??Chronic Kidney Disease Epidemiology Collaboration (CKD-EPI) equation refit??without adjustment for race. BUN/Creatinine Ratio 20.5 LAB CHEMISTRY METHOD 10/19/2024 2:04 PM [facility] Calcium 9.1 8.5 - 10.5 mg/dL LAB CHEMISTRY METHOD 10/19/2024 2:04 PM [facility] AST (SGOT) 24 10 - 42 unit/L LAB CHEMISTRY METHOD 10/19/2024 2:04 PM [facility] ALT (SGPT) 31 10 - 60 unit/L LAB CHEMISTRY METHOD 10/19/2024 2:04 PM [facility] Alkaline Phosphatase 61 42 - 121 unit/L LAB CHEMISTRY METHOD 10/19/2024 2:04 PM [facility] Total Protein 6.3 6.0 - 8.0 g/dL LAB CHEMISTRY METHOD 10/19/2024 2:04 PM EST [facility] Albumin 4.1 3.2 - 5.0 g/dL LAB CHEMISTRY METHOD 10/19/2024 2:04 PM EST [facility] Total Bilirubin 0.6 0.0 - 1.4 mg/dL LAB CHEMISTRY METHOD 10/19/2024 2:04 PM EST [facility] Blood Venous blood specimen / Unknown Venipuncture / Unknown 10/19/2024 1:12 PM EST 10/19/2024 1:33 PM EST Lor Bal MD LAB BLOOD ORDERABLE S Final Result [facility] [address] [place] [address], * (ABNORMAL) Bacterial identification and susceptibility, aerobic (10/13/2024 12:00 AM EST) Culture, Bacterial ID and Sensitivity Klebsiella pneumoniae ssp pneumoniae(A) LOVE 10/15/2024 9:39 AM EST [facility] Comment: This is an edited [...] pneumoniae Trimethoprim/Sulfamethoxazo le LOVE >=320 ug/ml: Resistant Dorie SCOTT LAB MICROBIOLOGY - GENERAL ORDER KEVIN Final Result [facility] [address] [place] [address], * HM Urine Albumin Creatinine Ratio (12/31/2023) Urine Albumin Creatinine Ratio abstracted Result [facility] Historical Provider HEALTH MAINTENANCE Final Result * Hemoglobin A1c (12/31/2023) Hemoglobin A1C 0.0 % Comment:abstracted, no inter pretation Blood Venous blood specimen / Unknown Result [facility] Historical Provider LAB BLOOD ORDERABLES Mercedez l Result * Lipid panel (12/31/2023) Triglycerides 0 mg/dL Comment:abstracted, no inter pretation Cholesterol 0 mg/dL Comment:abstracted, no inter pretation HDL 0 mg/dL Comment:abstracted, no inter pretation LDL Cholesterol 0 mg/dL Comment:abstracted, no inter pretation Blood Venous blood specimen / Unknown Result [facility] Historical Provider LAB BLOOD ORDERABLES Mercedez l Result from Last 3 Months or Most Recently Relevant to Health Maintenance Insurance MEDICARE [facility] Care Teams Diesel Engine Engineer Relationship Specialty Start Date End Date Mariely Vargas MD [address] [place] [phone] PCP - General 05/29/22
--- OUTSIDE RECORDS SUMMARY | 2025-01-03 10:48 | XMS_ITS | Clinical Summary ---
Author Organization [facility] Address [address] [place] [address] Care Team Providers Care Operations Director Name Role Phone Mariely Vargas MD Primary Care Provider [phone] Allergies Active Allergy Reactions Criticality Noted Date Comments Ciprofloxacin 05/22/2017 Doxycycline 05/22/2020 Penicillins 05/22/2017 Medications Medication Sig Dispensed Refills Start Date End Date Status aspirin EC 81 MG tablet Take 1 tablet (81 mg total) by mouth daily. 0 Active omeprazole (PRILOSEC) 20 MG capsule Take 1 capsule (20 mg total) by mouth daily. 0 Active vitamin C (ASCORBIC ACID) 500 MG tablet Take 1 tablet (500 mg total) by mouth daily. 0 Active loperamide (IMODIUM) 2 MG capsule Take 1 capsule (2 mg total) by mouth 4 (four) times a day as needed for diarrhea. 0 Active Probiotic Product (PROBIOTIC-10 PO) Take by mouth. 0 Act eden dicyclomine (BENTYL) 10 MG capsule Take 1 capsule (10 mg total) by mouth 4 (four) times a day before meals and at bedtime. 0 Active hydroxyurea (HYDREA) 500 MG capsule TAKE 2 CAPSULES BY MOUTH EVERY DAY 180 capsule 3 10/28/2023 Active folic acid (FOLVITE) tablet 1 mg TAKE 1 TABLET BY MOUTH EVERY DAY 90 tablet 3 04/18/2024 Active LORazepam (ATIVAN) 0.5 MG tablet Take 1 tablet (0.5 mg total) by mouth every 6 (six) hours as needed. 20 tablet 1 05/17/2024 Active Sulfamethoxazole-Tr imethoprim (BACTRIM PO) Take by mouth. 0 Active hydrOXYzine (VISTARIL) 25 MG capsule Take 1 capsule (25 mg total) by mouth 3 (three) times a day as needed. 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 05/10 Splenomegaly 10/28/2022 Nephrolithiasis 10/28/2022 History of prostate cancer 10/28/2022 Myelofibrosis 07/29/2022 Deep venous thrombosis 07/29/2022 Overview: 1998 at time of DX PV Post-phlebitic syndrome 07/29/2022 Pulmonary embolus 07/29/2022 Thrombocytosis 06/26/2020 Lung nodule 05/22/2020 Irritable bowel syndrome with diarrhea 0 PV (polycythemia vera) 05/26/2017 Prostate cancer 05/26/2017 CHICO (obstructive sleep apnea) 05/26/2017 Hyperglycemia 05/26/2017 Acquired hypothyroidism 05/26/2017 Chronic gout 05/26/2017 Family History Medical History Relation Name Comments Diabetes Brother 1 No Sig Med Hx Brother 2 Relation Name Status Comments Brother 1 Brother 2 Alive Social History Tobacco Use Types Packs/Day Years Used Date Smoking Tobacco: Never Smokeless Tobacco: Never Alcohol Use Standard Drinks/Week Comments No 0 (1 standard drink = 0.6 oz pur e alcohol) Sex and Gender Information Value Date Recorded Sex Assigned at Not on file Gender Identity Not on file Sexual Orientation Not on file Job Start Date Occupation Industry Not on file Not on file Not on file Last Filed Vital Signs Vital Sign Reading Time Taken Comments Blood Pressure 121/48 08/02/2024 9:47 AM EDT Pulse 74 08/02/2024 9:47 AM EDT Temperature 36.6 ??C (97.8 ??F) 08/02/2024 9:47 AM ED T Respiratory Rate - - Oxygen Saturation 100% 08/02/2024 9:47 AM EDT Inhaled Oxygen Concentration - - Weight 87.5 kg (192 lb 12.8 oz) 08/02/2024 9:47 AM EDT Height 180.3 cm (5' 11 ) 08/02/2024 9:47 AM EDT Body Mass Index 26.89 08/02/2024 9:47 AM EDT Plan of Treatment Health Maintenance Due Date Last Done Comments Hepatitis C Screening 1950 Pneumococcal Vaccine (1 of 2 - PCV) 1957 Depression Screening 1963 Preventative Health Evaluation 1969 DTap / Tdap / Td (1 - Tdap) 1970 Shingrix-Zoster Vaccine (1 o f 2) 1970 Colon Cancer Screening (Colonoscopy) 1996 Fall Risk Assessment 2016 COVID-19 Vaccine (2 - Pfizer risk series) 09/12/2021 08/22/2021 Influenza Vaccine (#1) 2024 , 08/22/2021, 08/23/2018 RSV Adult > 60+ Yrs or (1 - 1-dose 75+ series) 2026 Hepatitis B Vaccines Aged Out No long er eligible based on patient's age to complete this topic RSV Ped < 20 months Aged Out No longe r eligible based on patient's age to complete this topic Care Teams Operations Director Relationship Specialty Start Date End Date Mariely Vargas MD [address] [place], [place] PCP - General Internal Medicine 05/29/22
--- OUTSIDE RECORDS SUMMARY | 2025-01-03 10:48 | XMS_ITS | Encounter Summary ---
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 (Primary Dx); Acute deep vein thrombosis (DVT) of other specified vein of right lower extremity (CMS/HCC); Prostate cancer (CMS/HCC); Multiple subsegmental pulmonary emboli without acute cor pulmonale ([facility]/HCC); Thrombocytosis; Anemia in other chronic diseases classified elsewhere Social History Tobacco Use Types Packs/Day Years [...] on file documented as of this encounter Last Filed Vital Signs Vital Sign Reading Time Taken Comments Blood Pressure 130/52 12/23/2024 3:18 PM EST Pulse 72 12/23/2024 3:18 PM EST Temperature 36.1 ??C (97 ??F) 12/23/2024 3:18 PM EST Respiratory Rate - - Oxygen Saturation 99% 12/23/2024 3:18 PM EST Inhaled Oxygen Concentration - - Weight 88.9 kg (196 lb) 12/23/2024 3:18 PM EST Height - - Body Mass Index 27.34 08/02/2024 9:47 AM EDT documented in this encounter Progress Notes * Lor Prado-MD Deon - 12/23/2024 3:15 PM EST Due to concern for immunosuppression and patient starting on immunotherapy for neoadjuvant management of some of the face, plan to discontinue hydroxyurea for now CHIEF COMPLAINT: Chief Complaint Patient presents with Follow-up Polycythemia Thrombocytosis Erythromelalgia Weight Loss IDENTIFIER:Clay Johnson is a 74 y.o. male. 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 He continues on close follow-up with lab work. Latest labs reviewed, Polycythemia vera-he continues on hydroxyurea, 500 Mg x 2 capsules daily --after discussion today, decided to discontinue the medication Since last clinic visit, patient has been continuing on Hydrea. He is also on aspirin 81 Mg. He wasevaluated by cutaneous oncology in [place]. Unfortunately patient has developed a recurrence of his squamous cell carcinoma in the neck area. He was evaluated by cutaneous oncologist, and surgical oncology at [place]. Recommendation is for neoadjuvant immunotherapy with cemiplimab x 2- 4 cycles, followed by restaging imaging and to undergo surgery. Patient had several questions regarding the surgical recovery process, which appears to be quite prolonged. He is quite nervous about the recommendation to have immunotherapy. Side effects werereviewed. Of note, patient had his brother, about 10 years older than him who after a diagnosis of metastatic renal cell carcinoma. He was also on immunotherapy and that is very concerning for Clay. Therefore I discussed with him regarding side effects etc. If he does have clinical progression while undergoing immunotherapy, would be a candidate for restaging and potential curative intent surgery Regarding hydroxyurea, patient's oncologist from [place] has raised the concern that this may be immunosuppressive and may interfere with his immunotherapy. I discussed with the patient regarding discontinuing Hydrea. He would need lab work more frequently. At the patient's preference will plan to do labs at weekly interval, monitor closely for any transfusion requirements. There is also risk thatthrombocytosis might worsen once he stops the Hydrea and may need a higher dose of aspirin. Patient is hide higher risk for thrombotic events in the perioperative period. Therefore during hospitalization would need anticoagulation with medication such as Lovenox/SCD stockings Clinic follow-up 1 surgical recovery is complete, if he is a candidate for maintenance immunotherapy will arrange it in the infusion room The following is copied, reviewed and edited Cancer Staging No matching staging information was found for the patient. Oncology History No history exists. 69-year-old gentleman, who has been on follow-up for Pieter 2+ essential thrombocytosis/polycythemia vera, presents for second opinion evaluation Patient's past history relates back to 1997, when he developed venous thrombosis in his left lower extremity. He had pulmonary embolism as well at that time he was also found to have high platelet count, with platelet count greater than 1 million. He also developed a pulmonary embolism. Patient wason anticoagulation for 1 year. He developed postphlebitic syndrome, and will use compression stockings Due to the high platelet count, testing revealed JAK2 mutation. He was started on hydroxyurea, thathe has been on for about 15 years. Patient does not recall having a bone marrow aspiration and biopsy performed Currently. He is on hydroxyurea 1500 mg daily. In 2017,his hemoglobin was at 14 range, and thereafter started gradually dropping, below 12 in 2019and recently in the 9.8-10 he does continue to have macrocytosis, likely hydroxyurea effect range. Platelet count improved substantially down to 390s, and thereafter started gradually increasing in 2011 and currently in the 500s. Recent health-related events, patient reports that he stopped using alcohol and lost about 20 pounds in weight over the last 4 months. He needed doxycycline treatment for rosacea, that prompted diarrhea predominant irritable bowel syndrome, and improved after using Levbid and Imodium. Diarrhea has now completely resolved Clinically he feels well without any significant shortness of breath, palpitations or fatigue. He plays golf 5 times a week, walking 18 holes without any significant issues. He has not noticed any rectal bleeding. 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 Weight-based calculation of hydroxyurea, reveals ideal dose will be closer to 1100 mg, therefore will reduce dose to thousand MG daily #3 low folate level, will start him on a folic acid supplement 1 mg daily 07/2024 Patient was seen in clinic in April. 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 He underwent Mohs surgery since last clinic visit, on 05/19/2024, Dr. Jovel performed further surgeryon the Mohs resection defect of the left ear. He had reconstruction of the left ear with regional te mporoparietal fascial flap, and a split-thickness skin graft to the left ear reconstruction. He is awaiting healing for the next 4 to 6 weeks, prior to embarking on adjuvant radiation therapy at [facility], has appointment with Dr. Perales in June. He had staging imaging, CT neck and CT chest that are reviewed with him, and no suspicious metastatic disease, reassured Thereafter he had a second opinion evaluation at [facility] by radiation. He met with Dr. Fernandez, who recommended no radiation. He is now following with dermatology at 3-month interval. He has been advised to use niacinamide, no hematological concerns with it. He reports night sweats. He also reports pruritus, that has been worsening. Night sweats some how also occur after hot shower, improved with coldshowers. Likely related to polycythemia vera. I have advised him to use hydroxyzine, he agrees Weight loss has resolved, fatigue is improving Due for lab work we will recheck today ROS: GENERAL: No malaise, significant weight loss or fever NECK: No lumps, goiter, pain or significant neck swelling RESPIRATORY: No cough, wheezing or shortness of breath CARDIOVASCULAR: No chest pain, leg swelling or palpitations GI: No abdominal discomfort, blood in stools or black stools MUSCULOSKELETAL: No joint pain or swelling, back pain, or muscle pain. 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 Kidney disease 12/29/2017 Nephrolithiasis 10/28/2022 CHICO (obstructive sleep apnea) 05/26/2017 Obstructive sleep apnea syndrome 12/29/2017 PV (polycythemia vera) ([facility]) 05/26/2017 Prostate cancer ([facility]) 05/26/2017 Post-phlebitic syndrome 07/29/2022 Pulmonary embolus ([facility]) 07/29/2022 Lung nodule 05/22/2020 Pulmonary nodules 12/29/2017 Skin cancer of nose 12/29/2017 Splenomegaly 10/28/2022 Thrombocytosis 06/26/2020 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 05/31/2024 Resolved Ambulatory Problems Diagnosis Date Noted No Resolved Ambulatory Problems Past Medical History: Diagnosis Date Hypothyroidism Obstructive sleep apnea (adult) (pediatric) Polycythemia SOCIAL HISTORY: Social History Tobacco Use Smoking status: Never Smokeless tobacco: Never Substance Use Topics Alcohol use: No FAMILY HISTORY: Family History Problem Relation Name Age of Onset Diabetes Brother No Known Problems Brother Current Outpatient Medications: ascorbic acid (VITAMIN C) 500 mg chewable tablet, Take 1 tablet (500 mg total) by mouth daily., Disp: , Rfl: aspirin 81 mg EC tablet, Take 1 tablet (81 mg total) by mouth daily., Disp: , Rfl: cephalexin (KEFLEX) 500 mg capsule, Take 1 capsule (500 mg total) by mouth 2 (two) times a day., Disp: , Rfl: dicyclomine (BENTYL) 10 mg capsule, Take 1 capsule (10 mg total) by mouth 4 (four) times a day before meals and at bedtime., Disp: , Rfl: folic acid (FOLVITE) 1 mg tablet, TAKE 1 TABLET BY MOUTH EVERY DAY, Disp: , Rfl: hydroxyurea (HYDREA) 500 mg capsule, Take 2 capsules (1,000 mg total) by mouth 1 (one) time each day Take at the same time each day., Disp: 180 capsule, Rfl: 1 hydrOXYzine pamoate (VISTARIL) 25 mg capsule, TAKE 1 CAPSULE (25 MG TOTAL) BY MOUTH 3 (THREE) TIMESA DAY NEEDED., Disp: 90 capsule, Rfl: 1 Lactobac no.41/Bifidobact no.7 (PROBIOTIC-10 ORAL), Take by mouth, Disp: , Rfl: Lactobacillus acidophilus (PROBIOTIC ORAL), Take by mouth., Disp: , Rfl: levothyroxine (SYNTHROID, LEVOTHROID) 25 mcg tablet, TAKE 1 TABLET BY MOUTH EVERY DAY, Disp: , Rfl: loperamide (IMODIUM) 2 mg capsule, Take 1 capsule (2 mg total) by mouth 4 (four) times a day as needed for diarrhea., Disp: , Rfl: omeprazole (PriLOSEC) [address] capsule, Take 1 capsule (20 mg total) by mouth daily., Disp: , Rfl: sodium phosphate,mono-dibasic (SODIUM PHOSPHATES ORAL), Take 2 Sprays by mouth every 2 hours as needed., Disp: , Rfl: UNABLE TO FIND, CPAP- inhale into the lungs . [facility] pressure, Disp: , Rfl: Allergies Allergen Reactions Ciprofloxacin Doxycycline Penicillins PHYSICAL EXAM: Visit Vitals BP 130/52 (BP Location: Right arm, Patient Position: Sitting) Pulse 72 Temp 36.1 ??C (97 ??F) (Temporal) Wt 88.9 kg (196 lb) SpO2 99% BMI 27.34 kg/m?? Smoking Status Never BSA 2.09 m?? APPEARANCE: Alert and in no acute distress EYES: PERRL, conjunctiva pink and sclera are Normal without icterus ORAL CAVITY: No erythema or exudates NECK: Neck supple, no adenopathy, Left ear, postsurgical changes, with warty appearance in the auditory canal HEART: RRR with normal S1 and S2, no murmurs, no gallops, no JVD appreciated LUNG: clear to auscultation bilaterally Percussion note normal LYMPH NODES: No palpable superficial adenopathy ABDOMEN: Bowel sounds normoactive, no bruits, soft, non-tender, without organomegaly or palpable masses EXTREMITIES: Extremities warm and well perfused without clubbing, cyanosis, rash or edema NEURO: Oriented X 3, no focal weakness; sensation is normal Slow gait LABS: Review of Lab results , interpreted Lab Results Component Value Date WBC 10.4 10/19/2024 HGB 9.9 (L) 10/19/2024 HCT 32.2 (L) 10/19/2024 MCV 101.6 (H) 10/19/2024 PLT 305 10/19/2024 Lab Results Component Value Date NA 141 10/19/2024 K 4.4 10/19/2024 CL 109 10/19/2024 CO2 29 10/19/2024 GLUCOSE 154 (H) 10/19/2024 BUN 16 10/19/2024 CREATININE 0.78 10/19/2024 CALCIUM 9.1 10/19/2024 PROT 6.3 10/19/2024 ALBUMIN 4.1 10/19/2024 BILITOT 0.6 10/19/2024 AST 24 10/19/2024 ALT 31 10/19/2024 ALKPHOS 61 10/19/2024 EGFR 95 10/19/2024 Review of Imaging, interpreted CT CHEST W [facility] Diagnostic Imaging Department [address] [place] [id number] Patient: CLAY JOHNSONO.B./Age/Sex: 1950 - 73 - M Unit#: [id number] Location/Status: SPDICAT/REG CLI Mnemonic/Ordering Site: [facility] Ordering Physician: JOHN MARTINS MD CT Chest W - 05/17/24 - 1512 Report Status:Signed PROCEDURE: CT chest with IV contrast INDICATION: Squamous cell cancer left ear. Polycythemia vera. TECHNIQUE: Chest CT with intravenous administration of 90cc ISOVUE-370. Multi planar reformats were created and interpreted. The examination was performed utilizing dose reduction techniques.3-D or MIP images were produced with postprocessing on an independent computer workstation. DOSE: CTDIvol: 19.5/34.5/34.6mGy. Total exam DLP: 1041.2mGy-cm COMPARISON: CT chest September 2020 FINDINGS: VASCULATURE: Mild plaque without aneurysm. LUNGS/PLEURA: Minimal linear atelectasis is again noted at the right base that appears stable. Several small nodules appear similar to the previous exam. No significant consolidation or effusion. MEDIASTINUM: Slightly increased number of small lymph nodes are noted in the thoracic inlet. Increased number of small mediastinal lymph nodes. CHEST WALL: Again noted are mildly prominent left supraclavicular and left axillary lymph nodes. The largest of these measures approximately 8 mm in short axis. These appear similar to prior exam in 2019. UPPER ABDOMEN:Large spleen measuring 20 cm. Cholelithiasis noted. BONES: Minimal degenerative changes are noted. No osseous lesion. IMPRESSION: 1. Slightly increased number of small lymph nodes in the mediastinum and thoracic inlet compared to prior exam in this patient with reported history of polycythemia vera. 2. Stable splenomegaly. Stable left axillary and supraclavicular nodes. 3. Stable small nonspecific pulmonary nodules. Dictating Physician: MARVIN LI MD Electronically Signed by: MARVIN LI MD Dic Date/Time: 05/20/24 1356 Sign date/Time: 05/20/24 1423 Review of External Documentation Notes from [facility] [place] Tests ordered -lab work, every 3 months IMPRESSION: 1. 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 Acute deep vein thrombosis (DVT) of other specified vein of right lower extremity (CMS/HCC) 3. Prostate cancer (CMS/HCC) 4. Multiple subsegmental pulmonary emboli without acute cor pulmonale (CMS/HCC) 5. Thrombocytosis 6. Anemia in other chronic diseases classified elsewhere PLAN: 73-year-old gentleman, with JAK2 related essential thrombocytosis, who presents with worsening anemia. 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 Spleen 20 cm We will plan to repeat imaging in a year, okay to order in the new year If progressive, and if anemia worsens, would need to have a recheck of a bone marrow evaluation, will perform under sedation, hold off for now #3 thrombocytosis due to JAK2 mutation related disease Resolved, no recurrence Continue to monitor while off Hydrea Monitor for any episodes of thrombosis or bleeding, none currently Continues on aspirin 81 mg daily, tolerating it well but has had episodes of bleeding after cut May need to hold prior to any procedures or surgeries May need to increase the dose of aspirin to 325 mg if he experiences any further thrombocytosis while off Hydrea If he goes through any surgery such as the umbilical hernia repair that is proposed, would need anticoagulation with Lovenox 40 Mg daily for 2 to 4 weeks until he is fully ambulatory Risk of disease progression, transformation to acute leukemia were reviewed in brief. Availability of further treatment such as Jakafi was reviewed in detail. Fatigue has improved as well #3 deep vein thrombosis/postphlebitic syndrome On compression stockings, completed anticoagulation for now Will need prophylactic anticoagulation if he mobilized/admitted to hospital for any reason. This will involve Lovenox injections he agrees. #4 hypothyroidism, on thyroid replacement levothyroxine 25 MCG daily, our office can give prescriptions if needed reassured Recent concern for thyroid nodule and biopsy noted, however biopsy results were benign, reassured #5 GERD, on omeprazole 20 mg daily, symptoms are well-controlled #6 history of gout, continues on allopurinol 100 Mg daily #7 history of prostate cancer status post radical prostatectomy continue monitoring by urology, will follow-up #8 lung nodule, right side 7 mm, had another CT scan at [facility], reviewed, stable Agree with plan for PET CT scan if the size increases to greater than 8 mm Discussed regarding potential underlying lung malignancy, he is a non-smoker, may have a mutation there and ideally initial approach would be surgery if confirmed to be PET avid, SBRT would also be an option #9 squamous cell carcinoma of left earlobe-completed surgery, DFCI rad Caden did not recommend radiation, as the benefit was only about 8 to 10% and not more than 20% -- Recurrence noted, plans for neoadjuvant cemiplimab immunotherapy noted, plan for restaging PET CT scan after 3-4 cycles, and further surgical evaluation. If patient needs maintenance/adjuvant therapy can consider doing it locally. He will discuss it with his physician in [place] #10 pruritus secondary to PCV-will prescribe hydroxyzine to be taken at nighttime Monitor lab work closely and return to clinic in 3 months continue lab work at [facility] Lab work ordered once a week Pain Control--no issues Health Care Proxy--is his Lor Bal MD Cc Mariely Vargas MD Cc Libertad Ramos documented in this encounter Plan of Treatment Upcoming Encounters Date Type Department Care Team (Late st Contact Info) Description 03/21/2025 9:45 AM EDT Office Visit [facility] Hematology Oncology [address] [place] [address] Lor Bal MD [address] [place] [phone] Scheduled Orders Name Type Priority Associated Diagnoses Orde r Schedule CBC and differential Lab Routine Anemia in other chronic diseases classified elsewhere Once a week for 12 Occurrences starting 12/23/2024 until 12/23/2025 documented as of this encounter Visit Diagnoses Diagnosis 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 12/21/2024 hyoscyamine (LEVBID) 0.375 mg 12 hr tablet Take 1 tablet (0.375 mg total) by mouth every 12 (twelve) hours as needed for cramping. 12/21/2024 LORazepam (ATIVAN) 0.5 mg tablet Take 1 tablet (0.5 mg total) by mouth every 6 (six) hours as needed. 05/17/2024 12/21/2024 hydroxyurea (HYDREA) 500 mg capsule Take 2 capsules (1,000 mg total) by mouth 1 (one) time each day Take at the same time each day. 10/31/2024 12/23/2024 documented as of this encounter Care Teams Clothes Ironer Relationship Specialty Start Date End Date Mariely Vargas MD [address] [place] [id number] PCP - General 05/29/22 documented as of this encounter
--- OUTSIDE RECORDS SUMMARY | 2025-01-03 10:48 | XMS_ITS | Encounter Summary ---
Author Organization [facility] Address [address] [place] [address] Care Team Providers Care Regional Clinical Research Associate Name Role Phone Mariely Vargas MD Primary Care Provider [phone] Encounter Details Date Type Department Care Team (Late st Contact Info) Description 09/23/2024 Lab Requisition [facility] - Main Lab [address] [place] [phone] Dorie Thompson, SONIA [address] [address] Dysuria Social History Tobacco Use Types Packs/Day Years [...] Description 03/21/2025 9:45 AM EDT Office Visit [facility] Hematology Oncology [address] [place] [address] Lor Bal MD [address] [place] [address] documented as of this encounter Procedures Procedure Name Priority Date/Time Associated Diagnosis Comments BACTERIAL IDENTIFICATION AND SUSCEPTIBILITY, AEROBIC Routine 09/22/2024 10:45 AM EST Dysuria documented in this encounter Results * (ABNORMAL) Bacterial identification and susceptibility, aerobic (09/22/2024 10:45 AM EST) Culture, Bacterial ID and Sensitivity Klebsiella pneumoniae ssp pneumoniae(A) LOVE 09/24/2024 9:01 AM EST [facility] Comment: This is an edited result. Previous organism was Gram negative bacilli on 09/23/2024 at 1135 EST. Other Urine specimen from urethra / Unknown 09/22/2024 10:45 AM EST 09/23/2024 10:16 AM EST Narrative Organism Antibiotic Method Susceptibility Klebsiella pneumoniae ssp pneumoniae Amoxicillin/Clavulanate LOVE 4 ug/ml: Susceptible Klebsiella pneumoniae ssp pneumoniae Ampicillin/Sulbactam LOVE 16 ug/ml: Intermediate Klebsiella pneumoniae ssp pneumoniae Piperacillin/Tazobactam LOVE 16 [...] Intermediate Klebsiella pneumoniae ssp pneumoniae Nitrofurantoin LOVE 64 ug/ml: Intermediate Klebsiella pneumoniae ssp pneumoniae Trimethoprim/Sulfamethoxazo le LOVE >=320 ug/ml: Resistant us [facility] MICROBIOLOGY - GENERAL ORDER KEVIN Final Result [facility] [address] [place] [address], [place] [phone] documented in this encounter Visit Diagnoses Diagnosis Dysuria documented in this encounter Care Teams Regional Clinical Research Associate Relationship Specialty Start Date End Date Mariely Vargas MD [address] [place] [phone] PCP - General 05/29/22 documented as of this encounter
--- OUTSIDE RECORDS SUMMARY | 2025-01-03 10:48 | XMS_ITS | Encounter Summary ---
Author Organization [facility] Address [address] [place] [address] Care Team Providers Care Automatic Data Processing Planner Name Role Phone Mariely Vargas MD Primary Care Provider [phone] Encounter Details Date Type Department Care Team (Late Contact Info) Description 12/19/2024 Telephone [facility] Hematology Oncology [address] [place] [phone] Lor Bal MD [address] [place] [phone] Social History Tobacco Use Types Packs/Day Years [...] on file documented as of this encounter Progress Notes * Lor Bal MD - 12/19/2024 10:54 AM EST Please make an appointment for patient to come in this week, need to discuss about starting immunotherapy, not radiation, I will let infusion room know as well, he has been recommended to start CEMIPLIMAB per Wily Gordon documented in this encounter Plan of Treatment Upcoming Encounters Date Type Department Care Team (Late st Contact Info) Description 03/21/2025 9:45 AM EDT Office Visit [facility] Hematology Oncology [address] [place] [address] Lor Bal MD [address] [place] [phone] documented as of this encounter Visit Diagnoses Not on filedocumented in this encounter Care Teams Automatic Data Processing Planner Relationship Specialty Start Date End Date Mariely Vargas MD [address] [place] [phone] PCP - General 05/29/22 documented as of this encounter
--- OUTSIDE RECORDS SUMMARY | 2025-01-03 10:48 | XMS_ITS | Data Portability ---
Author Organization [place] - [facility], Allergy Address [address] [place] [address] Care Team Providers Care Nremt Name Role Phone TROY LOBO Primary Care Provider [phone] TROY LOBO Referring Provider Assessment Encounter Date Assessment Date Assessment LastModified by Organization Details LastModified Time 04/08/2024 04/08/2024 Patient with history of multiple skin cancers presents with over 2 months of ulceration of the left conchal bowl. The lesion has been quite painful and uncomfortable. It has not responded to antibiotics, steroids and topical antibiotics. There is a least a 1 cm ulceration with exposure of the cartilage. It was quite tender to touch. He allowed me to perform a biopsy. However, we discussed that it is quite suspicious and if the biopsy is negative he may require more extensive removal for diagnosis. We will review the results next week. salvador Not available 04/08/2024 10:47:40 06/15/2024 06/15/2024 He appears to have tinnitus and pulsation due to blockage of the left ear canal. Symptoms were improved with removal of debris with a suction. I have suggested some ofloxacin ear drops. He may require radiation therapy after the surgical site heals. I have suggested he be evaluated in our office as he may require a wick placement to keep the canal open. salvador Not available 06/15/2024 15:17:44 09/15/2024 09/15/2024 Recommendations: Follow up with referring provider. Amplification, pending medical clearance, . jane Not available 09/15/2024 08:47:23 09/15/2024 09/15/2024 The left pinna, external auditory canal were carefully examined today. There is a rotational flap graft filling the cavum jossie resulting in convexity of the this area, but this does not appear to be in danger of causing external auditory canal stenosis. I suspect that as this flap continues to go through the healing process, it will likely thin out and cause even less potential impingement on the external auditory meatus. We did discuss the fact that the site needs to be better cleaned and I spoke with the patient and his about how to clean the site more effectively as to avoid inflammation and irritation in this area. Recommended use of [id number] antibiotic ointment over the small area of residual granulation along the postauricular crease. Because of the change in configuration of the external auditory meatus, it is likely he will be prone to cerumen impaction. Recommend follow-up with me in 3 months for reevaluation. [email or web address] Not available 09/15/2024 09:27:27 Plan of Treatment Reminders Order Date Submit Date Provider Last Modified By Organization Details Last Modified Time Details Appointments Establish ed 10 2024 09:40A M ROGERS OLIVEIRA MD Not available Not available Not available Lab unlisted lab - H+E histology w/stains 2023 024 [email or web address] [facility] (Centralized Electronic Ordering - All Locations), Patient Can Go To The Location Of Their Choice, [id number] 04/25/2024 10:55:36 Referral None recorded. Procedures None recorded. Surgeries None recorded. Imaging None recorded. Medication Orders ofloxacin 0.3 % ear drops 2023 024 [facility]acy #[id number], [address] [place], [address], 09/15/2024 08:13:54 Patient TargetsNo targets recorded. Patient InstructionsNo instructions recorded. Reason for Referral None Reported. Results Created Date Observation Date Name Description Value Unit Range Abnormal Flag Note LastModifiedBy Organization Detail LastModifiedTime 05/17/20 24 05/17/2024 CT, neck, soft tissu e, w/wo contr ast No observ ation record ed. jschmaria guadalupe [facility] Diagnosit Imaging Dept [address] [place] [address], [id number], 05/17/2024 16:17:04 05/17/20 24 05/17/2024 CT, neck, soft tissu e, w/wo contr ast [facility] Diagno stic Imagin g Depart [address] [address] ____ Kwan t: CLAY JOHNSON /Age/S ex: 1950 - 73 - M Unit#: [id number] Locati on/Sta tus: SPD[facility] T/REG CLI Accoun t#: [id number] Mnemon ic/Ord ering Site: [facility] W/SPCT Orderi ng Physic shari: RAMBO PATEL MD ___ CT Neck W - - Report Status :Bere d CT neck, 05/17/20 24. HISTOR Y: Squamo us cell carcin kira left ear and EAC. TECHNI QUE: CT of the neck with pederson l and sagitt al reform ats. IV CONTRA ST DOSE: 90 mL ISOVUE -370. Dose length produc t: 345 mGy-cm . COMPAR DAMARIS: None. FINDIN GS: Report ed histor y of a squamo us cell carcin kira of the left ear and housekeeping lead al audito ry canal. There is asymme tric soft tissue thicke sujit along the supply chain engineer ior inferi or pinna, extend ing into the latera l aspect of the EAC, which correl ates with this histor y. No bony erosiv e or reacti ve change to sugges t osseou s involv ement. The paroti d and subman dibula r glands are normal . Thyroi d gland is normal . Postin flamma tory calcif icatio ns of the tonsil lar pillar s. The mucosa l surfac es of the neck are otherw ise unrema rkable . Scatte red small bilate ral cervic al lymph nodes. None meet size criter ia for lympha denopa thy. No mass or fluid collec tion. Scatte red athero sclero tic calcif icatio ns, most extens eden at the caroti d bulbs. Major arteri es and veins of the neck are patent . Small nodes in the superi or medias tinum, which are more lesly us than is typica lly seen, but none meet size criter ia for lympha denopa thy. The larges t is locate d on the left at the thorac ic inlet and measur es 9 mm in short axis. There are also mildly promin ent nodes in the left suprac la vicula r region . The larges t are border line in size, measur ing 1 cm in short axis. Mild biapic al pleura l-pare nchyma l scarri ng. Visual ized lung apices are otherw ise clear. The visual ized portio ns of the brain are normal . Orbits are normal . Mild mucosa l thicke sujit along the floor of the right maxill johnny antrum and a small mucous retent ion cyst or focus of debris in the right spheno id sinus. Imaged parana huber sinuse s are otherw ise clear. The anteri or clinoi ds are pneuma tized and commun icate with spheno ids. The mastoi ds and middle ear spaces are clear. Normal appear ance of the skull base forami na. Modera te degene rative change s of the cervic al spine. IMPRES MARCI: 1. Soft tissue thicke sujit of the supply chain engineer ior inferi or left pinna extend ing toward s EAC, correl ating with a report ed squamo us cell carcin kira. There is no eviden ce of associ ated bony invasi on. 2. Small nodes scatte red throug hout the neck which do not meet size criter ia for adenop athy. Border line enlarg ed nodes in the left suprac lavicu lar region and a solita ry mildly promin ent but not pathol ogical ly enlarg ed node at the left thorac ic inlet. These are nonspe cific but more likely reacti ve than neopla stic. Dictat ing Physic shari: SE DORA GREENFIELD MD Electr onical ly Signed by: SE DORA GREENFIELD MD Dic Date/T [place]: 1427 Sign date/T [place]: [address] [facility] [address] Department [address] [place], [address], 05/17/2024 16:18:40 06/29/2009/22/2019 imagi ng/di agnos tic resul t No observ ation record ed. [email or web address] Not Available 19:31:49 06/29/2009/22/2019 audio gram No observ ation record ed. [email or web address] Not Available 19:32:12 09/15/20 audio gram No observ ation record ed. BARCODE Not Available 2023 14:38:55 Result Notes None recorded. Problems Name Problem SNOMED Code Status Onset Date Resolution Date Notes Provider Name and Address Organization Details Recorded Time Hypertrop hy of tonsils 18357014 Active 2017 Hypertrop hy of tonsils; Note: Date Diagnosed : 06/01/2018 12:08 PM (J35.1) Not Available [facility] 4 02:15:50 Obstructi ve sleep apnea syndrome 21315183 Active 2019 Obstructi ve sleep apnea (adult) (pediatri c); Note: Date Diagnosed : 04/04/2020 9:58 AM (G47.33) Not Available [facility] 4 02:15:29 Bleeding from nose 513055268 Active 2019 Epistaxis ; Note: Date Diagnosed : 04/04/2020 9:58 AM (R04.0) Not Available [facility] 4 02:15:28 Sensorine ural hearing loss of bilateral ears 311531167 Active 2017 Sensorine ural hearing loss, bilateral ; Note: Date Diagnosed : 06/11/2018 10:24 AM (H90.3) Not Available [facility] 4 02:15:48 Tinnitus of left ear 35527244383 06 Active 2017 Tinnitus, left ear; Note: Date Diagnosed : 06/11/2018 12:44 PM (H93.12) Not Available [facility] 4 02:15:32 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 RAMBO DE LA ROSA MD [address] [facility] [address], [place], [address] , [place] - [facility] 4 22:17:11 Actinic keratosis 108279938 Active 2023 RAMBO DE LA ROSA MD [address] [facility] [address], [place], [place], [address] , [place] - [facility] 4 22:17:19 Hypothyro idism 90932134 Active 2023 RAMBO DE LA ROSA MD [address] [facility] [address], [place], [place], [address] , [place] - [facility] 4 22:17:30 Lesion of skin of left ear 88352106590 132519 Active 2023 RAMBO DE LA ROSA MD [address] [facility] [address], [place], [place], [address] , [place] - [facility] 4 10:46:45 Squamous cell carcinoma of skin of ear 923511738 Active 2023 RAMBO DE LA ROSA MD [address] [facility] [address], [place], [address] , [place] - [facility] 4 20:24:50 Acute otitis externa 41622731 Active 2023 RAMBO DE LA ROSA MD [address] [facility] [address], [place], [address] , [place] - [facility] 4 15:18:21 Acute otitis externa 99694761 Active 2023 RAMBO DE LA ROSA MD [address] [facility] [place] [address], [place], [address] , [place] - [facility] 4 15:19:13 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 254664921 Active 2023 RAMBO DE LA ROSA MD [address] [facility],[place] [address], [place], [address] , [place] - [facility] 4 15:20:44 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 45561156 Active 2023 RAMBO DE LA ROSA MD [address] [facility],[place] [address], [place], [address] , [place] - [facility] 4 22:23:07 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 Procedures Surgical History Date Name Laterality Status Provider Name and Address Organization Details Recorded Time 09/15/20 24 Comp Audio with Tymps (04572 & 38656) completed LUIGI SPENCER [address] [facility],[place] [address], [place], [address], [facility] - [facility] 09/15/2024 08:41:47 09/15/20 24 Cerumen removal with microscope left completed ROGERS OLIVEIRA MD [address] [facility],[address], [address], [facility] - [facility] 09/15/2024 08:29:59 04/08/20 24 General Biopsy completed RAMBO WOOTEN MD [address] [facility],[place] [address], [address], [facility] - [facility] 04/08/2024 10:46:30 Prostatectomy (turp) completed Angelita Lopez [facility] 04/08/2024 10:16:10 Imaging Results Imaging Date Name Status LastModified by Organiz ation Details LastModified Time 05/17/2024 CT, neck, soft tissue, w/wo contrast completed [facility] Diagnosit Imaging Dept [address] [place] [address], [address], 05/17/2024 16:17:04 05/17/2024 CT, neck, soft tissue, w/wo contrast completed [facility] Department [address] [place] [address], [address], 05/17/2024 16:18:40 09/22/2019 imaging/diagno stic result completed Information not available 06/29/2024 19:31:49 09/22/2019 audiogram completed Information not available 06/29/2024 19:32:12 09/15/2024 audiogram completed BARCODE Information no t available 09/15/2024 14:38:55 Procedure Notes None recorded. Medical Equipment None Reported. Allergies Allergen ID Allergen Name Allergen Category Reaction Reaction Severity Criticality Documentation Date Start Date Code Code System Note Provider Name and Address Organization Details Recorded Time 442716 doxycycli ne Not available Not available Not available Not available 06/15/2024 3640 RxNorm Milly hahn [place] - [facility] 4 15:07:05 00618 penicilli n G Not available other Not available Not available 03/22/2024 7980 RxNorm React ion: unkno wn, unspe cifie d;; Not Available [facility] 4 00:52:56 [address]50[address] Cipro medicatio n diarrhea Not available Not available 03/22/2024 27965 3 RxNorm React ion: unkno wn, unspe cifie d;; Not Available [facility] 4 00:53:05 Medications Name Sig Start Date Stop Date Status Note LastModified by Organization Details LastModified Time hydroxyur ea 500 mg capsule TAKE 2 CAPSULES BY MOUTH EVERY DAY active Not Available Not Available No t Available cilostazo l 50 mg tablet TAKE 1 TABLET BY MOUTH TWICE A DAY active Not Available Not Available No t Available sulfameth oxazole 400 mg-trimet hoprim 80 mg tablet TAKE 1 TABLET BY MOUTH EVERY DAY active Not Available Not Available No t Available cephalexi n 250 mg capsule TAKE 1 CAPSULE BY MOUTH 4 TIMES A DAY FOR 10 DAYS 04/08 completed Not Available Not Available Not Available loperamid e 2 mg tablet 09/15 completed Medicati on ID: [id number] B rand Name: loperami de Send Method: E-Prescr ibed Sub s Allowed: subs OK Medic ationGen ericName : loperami de Not Available Not Available Not Available acetamino phen 300 mg-codein e 15 mg tablet TAKE 1 TABLET BY MOUTH EVERY 12 HOURS NEEDED FOR PAIN FOR 10 DAYS 06/15 completed Not Available Not Available Not Available sulfaceta mide sodium (acne) 10 % lotion (suspensi on) APPLY AT BEDTIME TO FACE FOR ROSACEA. active Not Available Not Available No t Available ciproflox acin 250 mg tablet TAKE 1 TABLET ONCE DAILY WITH OPTION TO TAKE TWICE A DAY AFTER 4 DAYS IF NO DIARRHEA UNTIL GONE 04/08 completed Not Available Not Available Not Available trimethop rim 100 mg tablet TAKE 1 TABLET BY MOUTH DAILY STOP BACTRIM 06/15 completed Not Available Not Available Not Available allopurin ol 100 mg tablet 06/15 completed Medicati on ID: [id number] D uration Value: 90 Brand Name: allopuri nol Send Method: E-Prescr ibed Sub s Allowed: subs OK Medic ationGen ericName : allopuri nol Not Available Not Available Not Available sulfameth oxazole 800 mg-trimet hoprim 160 mg tablet TAKE 1 TABLET BY MOUTH TWICE A DAY 09/15 completed Not Available Not Available Not Available aspirin 81 mg tablet,de layed release 06/15 completed Medicati on ID: [id number] B rand Name: aspirin Send Method: E-Prescr ibed Sub s Allowed: subs OK Medic ationGen ericName : aspirin Not Available Not Available Not Available levothyro xine 25 mcg tablet TAKE 1 TABLET BY MOUTH EVERY DAY active Not Available Not Available No t Available ofloxacin 0.3 % ear drops INSTILL 5 DROPS INTO AFFECTED EAR(S) BY OTIC ROUTE TWICE DAILY FOR 10 DAYS 09/15 completed Not Available Not Available Not Available methenami ne hippurate 1 gram tablet TAKE 1 TABLET BY MOUTH TWICE A DAY WITH CRANBERR Y OR ORANGE JUICE. STOP IF ON ANY OTHER ANTIBIOT ICS active Not Available Not Available No t Available lorazepam 0.5 mg tablet TAKE 1 TABLET BY MOUTH EVERY 6 HOURS NEEDED. 09/15 completed Not Available Not Available Not Available triamcino lone acetonide 0.025 % topical cream APPLY TO AFFECTED AREA TWICE A DAY 06/15 completed Not Available Not Available Not Available cephalexi n 500 mg capsule TAKE 1 CAPSULE BY MOUTH FOUR TIMES A DAY FOR 7 DAYS 06/15 completed Not Available Not Available Not Available nystatin 100,000 unit/gram topical cream APPLY TO AFFECTED AREA TWICE A DAY 06/15 completed Not Available Not Available Not Available metronida zole 0.75 % topical cream 06/15 completed Medicati on ID: [id number] D uration Value: 30 Brand Name: metronid azole Se nd Method: E-Prescr ibed Sub s Allowed: subs OK Medic ationGen ericName : metronid azole Not Available Not Available Not Available minocycli ne 50 mg capsule TAKE ONE PILL TWICE A DAY UNTIL IMPROVED , THE REDUCE TO ONE PILL DAILY. 06/15 completed Not Available Not Available Not Available folic acid 1 mg tablet TAKE 1 TABLET BY MOUTH EVERY DAY active Not Available Not Available No t Available mupirocin 2 % topical ointment APPLY ONCE DAILY TO BIOPSY SITE ON LEFT LEG, RIGHT LEG, RIGHT ARM AND ON EAR 06/15 completed Not Available Not Available Not Available ibuprofen 600 mg tablet TAKE 1 TABLET BY MOUTH EVERY 6 HOURS NEEDED FOR MODERATE PAIN. ALTERNAT E WITH TYLENOL/ ACETAMIN OPHEN. TAKE WITH FOOD/MIL K. 06/15 completed Not Available Not Available Not Available methylpre dnisolone 4 mg tablets in a dose pack TAKE 6 TABLETS ON DAY 1 DIRECTED ON PACKAGE AND DECREASE BY 1 TAB EACH DAY FOR A TOTAL OF 6 DAYS 04/08 completed Not Available Not Available Not Available ipratropi um bromide 42 mcg (0.06 %) nasal spray 04/08 completed Medicati on ID: [id number] D uration Value: 30 Brand Name: ipratrop ium bromide Send Method: E-Prescr ibed Sub s Allowed: subs OK Speci al Instruct ion: USE 2 SPRAYS INTO EACH NOSTRILS 4 TIMES DAILY Me dication GenericN dakotah: ipratrop ium bromide Medicati on ID: [id number] D uration Value: 30 Brand Name: ipratrop ium bromide Send Method: E-Prescr ibed Sub s Allowed: subs OK Speci al Instruct ion: USE 2 SPRAYS INTO EACH NOSTRILS 4 TIMES DAILY Me dication GenericN d[place]: ipratrop ium bromide Not Available Not Available Not Available ketoconaz ole 2 % topical cream APPLY SPARINGL Y ONCE PER DAY TO FACE AND TWICE A DAY TO FEET. active Not Available Not Available No t Available cefdinir 300 mg capsule TAKE 1 CAPSULE BY MOUTH TWICE A DAY 04/08 completed Not Available Not Available Not Available fluticaso ne propionat e 50 mcg/actua tion nasal spray,michelle pension INSTILL 2 SPRAYS IN EACH NOSTRIL EVERY DAY active Not Available Not Available No t Available ipratropi um bromide 21 mcg (0.03 %) nasal spray USE 2 SPRAYS INTRANAS ALLY 4 TIMES A DAY NEEDED FOR ALLERGY SYMPTOMS active Not Available Not Available No t Available gentamici n 0.1 % topical ointment APPLY 3 TIMES A DAY TO LEFT EAR FOLLICUL ITIS 04/08 completed Not Available Not Available Not Available mometason e 0.1 % topical cream APPLY TWICE A DAY TO RASH ON EARS, NECK, AND BUTTOCKS . 06/15 completed Not Available Not Available Not Available oxycodone 5 mg tablet TAKE 1 TABLET BY MOUTH EVERY 6 HOURS ONLY NEEDED FOR SEVERE PAIN NOT CONTROLL ED WITH TYLEBOL/ IBUPROFE N. 06/15 completed Not Available Not Available Not Available hydroxyzi ne pamoate 25 mg capsule TAKE 1 CAPSULE (25 MG TOTAL) BY MOUTH 3 (THREE) TIMES A DAY NEEDED. active Not Available Not Available No t Available clindamyc in 1 % lotion 06/15 completed Medicati on ID: [id number] D uration Value: 30 Brand Name: clindamy yolanda phosphat e Send Method: E-Prescr ibed Sub s Allowed: subs OK Speci al Instruct ion: APPLY 1-2 DAILY FOR ROSACEA Medicati onGeneri cName: clindamy yolanda phosphat e Not Available Not Available Not Available Vitamin C 500 mg capsule,e xtended release 2017 active Medicati on ID: [id number] B rand Name: Vitamin C Send Method: E-Prescr ibed Sub s Allowed: subs OK Medic ationGen ericName : Vitamin C Not Available Not Available Not Available ciclopiro x 0.77 % topical cream APPLY TWICE A DAY TO FUNGAL RASH ON RIGHT BUTTOCK UNTIL CLEAR. 04/08 completed Not Available Not Available Not Available tadalafil 5 mg tablet TAKE 1 TABLET BY MOUTH EVERY DAY active Not Available Not Available No t Available nitrofura ntoin monohydra te/macroc rystals 100 mg capsule TAKE 1 CAPSULE BY MOUTH TWICE A DAY 09/15 completed Not Available Not Available Not Available azelastin e 205.5 mcg (0.15 %) nasal spray 06/15 completed Medicati on ID: [id number] B rand Name: azelasti ne Send Method: E-Prescr ibed Sub s Allowed: subs OK Medic ationGen ericName : azelasti ne Not Available Not Available Not Available Lagevrio 200 mg capsule (EUA) TAKE 4 CAPSULES BY MOUTH TWICE A DAY FOR 5 DAYS 04/08 completed Not Available Not Available Not Available Vitals Date Recorded Body height Body mass index (BMI) Body weight Provider Name and Address Organization Details Last Updated DateTime 06/15/2024 175.26 cm 28.1 kg/m2 79639.55 g Milly Vasquez [place] [facility] 06/15/2024 15:00:45 Date Recorded Body height Body mass index (BMI) Body weight Provider Name and Address Organization Details Last Updated DateTime 07/08/2024 175.26 cm 28.1 kg/m2 87222.55 g Johny Horton [place] - [facility] 07/08/2024 11:35:04 Date Recorded Body height Body weight Provider Name and Address Organization Details Last Updated DateTime 04/08/2024 175.26 cm 35003.51 g Angelita Lopez [place] - [facility] 04/08/2024 10:18:55 Social History None recorded. Functional Status None recorded. Mental Status None recorded. Family History Nothing Reported. Medical History Condition Response Allergies/Hayfever Y Diabetes Y Sleep Disorder Y GERD/Reflux Y Cancer Y Thyroid Problems Y Hypertension Y Past Encounters Encounter ID Performer Location Encounter Start Date Encounter Closed Date Diagnosis/Indication Diagnosis SNOMED-CT Code Diagnosis ICD10 Code Diagnosis Note [id number] RAMBO DE LA ROSA MD [facility] [address] [address] 04/08/2024 09:34:07 04/08/2024 11:03:58 Actinic keratosis 769217476 L57.0 Obstructiv e sleep apnea syndrome 46106435 G47.33 Hypothyroidism 26229123 E03.9 Lesion of skin of left ear 5437276355 9235036 H93.8X2 [id number] RAMBO DE LA ROSA MD [facility] [address] [address] 06/15/2024 14:50:50 06/15/2024 15:28:16 Acute otitis externa 89822752 H60.502 Squamous c ell carcinoma of auricle of ear 857279197 C44.229 [id number] RAMBO DE LA ROSA MD [facility] [address] [address] 07/08/2024 11:27:53 07/08/2024 12:03:02 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 Still swelling of skin graft. No need for any packing Suggest 3 drops distilled vinegar left ear once weekly. F/u in 3 months with PA for cleaning History of malignant neoplasm of skin 700717801 Z85.828 Diffuse actinic keratosis and multiple scars. 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 15856712 H95.812 Squamous c ell carcinoma of skin of ear 391834424 C44.229 Sensorineu ral hearing loss of bilateral ears 773058899 H90.3 Audiologic al evaluation results:Ri ght ear:{{Norm al sloping* M ild Modera te Moderat hortencia-severe Severe Pr ofound Nor mal auditory thresholds }} to {{mild mod erate* mod erately-se guillermo sever e profound with}} {{sensorin eural hearing loss with* cond uctive hearing loss with mixed hearing loss with}} {{excellen t* good fa ir poor no t measurable }} word recognitio n.Left ear:{{Norm al sloping* M ild Modera te Moderat hortencia-severe Severe Pr ofound Nor mal auditory thresholds }} to {{mild mod erate mode rately-sev ere* sever e profound with}} {{sensorin eural hearing loss with* cond uctive hearing loss with mixed hearing loss with}} {{excellen t* good fa ir poor no t measurable }} word recognitio n.Tympanom etry:Right Ear:{{Type A Type As Type Ad Type C Type C, shallow & rounded Ty pe B* Type B with large volume Cou ld not maintain a hermetic seal}}Left Ear:{{Type A* Type As Type Ad Type C Type C, shallow & rounded Ty pe B Type B with large volume Cou ld not maintain a hermetic seal}}Lucian ometric testing reviewed with patient and his . He has high-frequ ency sensorineu ral hearing loss consistent with presbycusi s. He is a borderline candidate for amplificat ion at this point. He is not interested in learning about amplificat ion technology at this point. Impacted c erumen in left ear [id number] H61.22 [id number] LUIGI SPENCER [facility] of [address] [address] 09/15/2024 08:30:27 09/16/2024 07:25:20 Sensorineural hearing loss of bilateral ears [id number] H90.3 [facility]:{{Norm al sloping* M ild Modera te Moderat hortencia-severe Severe Pr ofound Nor mal auditory thresholds }} to {{mild mod erate* mod erately-se guillermo sever e profound with}} {{sensorin eural hearing loss with* cond uctive hearing loss with mixed hearing loss with}} {{excellen t* good fa ir poor no t measurable }} word recognitio n.Left ear:{{Norm al sloping* M ild Modera te Moderat hortencia-severe Severe Pr ofound Nor mal auditory thresholds }} to {{mild mod erate mode rately-sev ere* sever e profound with}} {{sensorin eural hearing loss with* cond uctive hearing loss with mixed hearing loss with}} {{excellen t* good fa ir poor no t measurable }} word recognitio n.Tympanom etry:Right Ear:{{Type A Type As Type Ad Type C Type C, shallow & rounded Ty pe B* Type B with large volume Cou ld not maintain a hermetic seal}}Left Ear:{{Type A* Type As Type Ad Type C Type C, shallow & rounded Ty pe B Type B with large volume Cou ld not maintain a hermetic seal}} Health Concerns Section Related Observation LastModified by Organization Detai ls LastModified Time None Recorded Concern Status LastModified by Organization Details LastModified Time None Recorded Advance Directives Directive None Recorded Payers Encounter Date Sequence Insurance Name Policy Number Policy Ryan Covered Member ID Ryan Member ID Guarantor Name 04/08/2024 2 [place] [id number] Clay Johnson [id number] Clay Johnson 04/08/2024 1 [place] [employer] [employer] [place] Clay Johnson [id number] Clay Johnson 06/15/2024 2 [place] [id number] Clay Johnson [id number] Clay Johnson 06/15/2024 1 [place] [employer] Clay Johnson [id number] Clay Johnson 07/08/2024 2 [place] [id number] Clay Johnson [id number] Clay Johnson 07/08/2024 1 [place] [employer] Clay Johnson [id number] Clay Johnson 09/15/2024 2 [place] [id number] Clay Johnson [id number] Clay Johnson 09/15/2024 1 [place] [facility] Clay Johnson [id number] 2 Clay Johnson 09/15/2024 2 [place] [id number] Clay Johnson [id number] Clay Johnson 09/15/2024 1 [place] [facility] Clay Johnson [id number] Clay Johnson Notes Date Note Type Note Provider Name and Address Organization Details Recorded Time 04/08/2024 text/html 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 Has ulceration left conchal bowl for [address] Cat treated it with steroids and abx ointment RAMBO WOOTEN MD 100 [facility],[address], [address], [place] - [facility] 04/08/2024 11:03:12 06/15/2024 text/html He had Moh's resection and plastic reconstruction with graft left pinna. Notes tinnitus and pulsating sensation left ear. CT had small nodes but did not appear pathological RAMBO WOOTEN MD [facility],[place] [address], [place], [address], [place] - [facility] 06/15/2024 15:22:26 07/08/2024 text/html s/p Moh's and plastic reconstruction. Left EAC was narrow but not closed. Ofloxacin drops given last visit. 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 This resulted in a through and through defect of the cavum jossie. He had a rotational flap done with Dr. Jovel on May 19 to reconstruct the defect. There has been some discussion about need for posttreatment radiation, but at this point there are no plans for radiation. There has been some concern regarding subsequent narrowing of the external auditory canal. Last seen by Dr. Wooten back in June. Dr. Wooten spoke with the surgeon regarding use of a silicon dilator versus observation of the stenotic meatus, but this was not initiated. Patient sent to me for further evaluation. Patient comes in today accompanied by his . Patient thinks that his hearing may be reduced in the left ear. ROGERS OLIVEIRA MD [address], [address], [place] - [facility] 09/15/2024 09:28:53 09/15/2024 text/html Audiological Evaluation HPIReported bypatient.Hearing loss perceived:hearing loss in both ears: left ear worse Onset:recent onset (not sudden) Use of amplification or other hearing devices:none (does not use amplification) LUIGI SPENCER 100 [facility],[place] [address], [place], [address], [place] - [facility] 09/15/2024 09:22:54
--- OUTSIDE RECORDS SUMMARY | 2025-01-03 10:48 | XMS_ITS ---
Author Organization [facility] Address [address] [place] [address] Care Team Providers Care Supervisor Dry Cell Assembly Name Role Phone TROY LOBO Primary Care Provider Kayleigh Mcghee Unavailable [phone] Allergies Allergen (clinical drug ingredient) Drug/Non Drug Allergy documented on EMR Reaction Allergy Type Onset Date Status Psyllium Unknown Drug Allergy Active ciprofloxacin Ciprofloxacin Unknown Drug Allergy Active doxycycline Doxycycline Unknown Drug Allergy Act eden Penicillin Unknown Drug Allergy Active Reason For Referral Reason Evaluation and manag ement Diagnosis 1 Diaphragmatic hernia without obstruction or gangrene (K44.9) Referral Organization [facility] Referring Provider First Name Kayleigh Referring Provider Last Name Taz Referring Provider Speciality Internal M edicine Referred Provider Specialty Surgery General Notes Referral sent to [facility] General Surgery ([address] [place] [address] Dr Becerra, [place] [address] ) - Office will call patient for scheduling.Jethro Latraya 09/07/2024 11:54:51 AM > Referral Priority Routine REASON FOR VISIT Medicare Wellness Medications Medication SIG (Take, Route, Frequency, Duration) Notes Start Date End Date Status Ketoconazole 2 % 1 application Externally Once a day Active Sulfacetamide Sodium 10 % 1 application Externally Active Bactrim 400-80 MG 1 tablet Orally Once a day Active Fluticasone Propionate 50 MCG/ACT 1 spray in each nostril Nasally Once a day Active Mometasone Furoate 0.1 % 1 application Externally Once a day Active Ipratropium [place] 0.03 % 2 sprays in each nostril Nasally Twice a day for 30 day(s) 01/27/2023 Active Aspirin Adult Low Dose 81 MG 1 tablet Orally Once a day Active Cilostazol 50 MG 1 tablet 30 minutes before or 2 hours after breakfast and dinner Orally Twice a day Active Cialis 5 MG 1 tablet as needed Orally Once a day Active Methenamine Hippurate 1 GM 1 tablet Orally Twice a day Not-Taking Folic Acid 1 MG 1 tablet Orally Once a day Active Hydroxyurea 500 MG 2 capsule Orally Onc e a day Active Levothyroxine Sodium 25 MCG 1 tablet in the morning on an empty stomach Orally Once a day Active Loperamide HCl 2 MG 2 capsule as needed Orally twice a day Active Omeprazole 20 MG 1 capsule 30 minutes before morning meal Orally Once a day Active Probiotic Active Vitamin C 500 MG 1 tablet Orally Once a day Active Immunizations Vaccine Route Administration Date Status Comme nts Fluzone High Dose 56533 IM Intramuscular 09/02/2024 Admini stered Vital Signs Temperature 97.3 degrees Fahrenheit 09/02/20 Oximetry 100 % 09/02/2024 Heart Rate 72 /min 09/02/2024 Blood pressure systolic 118 mm Hg 09/02/20 24 Blood pressure diastolic 52 mm Hg 024 Weight 194.2 lbs 09/02/2024 BMI 28.68 kg/m2 09/02/2024 Height 69 in 09/02/2024 Encounters Encounter Location Date Provider Diagnosis [facility] [address] [address] 09/02/2024 [place] Hypothyroidism, unspecified E03.9 ; Annual wellness visit Z00.00 ; Gastro-esophageal reflux disease without esophagitis K21.9 ; Polycythemia vera D45 ; Personal history of malignant neoplasm of prostate Z85.46 ; Obstructive sleep apnea (adult) (pediatric) G47.33 ; Rosacea, unspecified L71.9 ; Encounter for immunization Z23 and Varicose veins of bilateral lower extremities with pain I83.813 Assessments Encounter Date Diagnosis (ICD Code) Assessment Notes Treatment Notes Treatment Clinical Notes Section Notes 09/02/2024 Hypothyroidism, unspecified (ICD-10 - E03.9) Mr. Johnson is a 72 year old gentleman with GERD, hypothyroidism, kidney stones, IBS and sees Dr. Hendricks, prostate cancer s/p prostatectomy in [address] Veras, actinic keratosis, hyperglycemia and sees ibarhima Greene and sees Dr. Coats and polycythemia vera and sees Dr. Chavarria, urethral stricture surgery by Dr. 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 Hypothyroidism. Reviewed lab work from July 2024 appears to be stableContinue Levothyroxine 25 MCG and advised to take it first thing in the morning on an empty stomach. GERD. Continue Omeprazole 20 MG daily. Prostate cancer. s/p prostatectomy in [address] Veraspractjuju since she retired status post recent left ear surgery reconstruction surgery diagnosis of squamous cell carcinoma has been seen by plastic surgery at [facility] doctor Med June 01, 2024 [facility]. Sleep is stable on CPAP and sees Dr. Barbosa. He uses his inhalers as needed. Polycythemia vera. He is on Aspirin 81 MG, Hydroxyurea [address] Chavarria.most of his lab work is ordered and followed by hematology Hyperglycemia. A1c 6.8, glucose 153. He sees Dr. Escobar IBS. He sees Dr. Hendricks. heart murmur no chest pain no shortness of breath and EKG was completed today which showed normal sinus rhythm heart rate 76 bpm and QTC 422 472 normal MN and 12 over some premature ventricular complexes but no AV blocks. No acute ST changes, EKG was reviewed by me Brown. He sees Dr. Coats. He uses Ketoconazole, Sulfacetamide Sodium and Mometasone Furoate cream umbilical hernia partially reducible he is not in any pain but is worried we will get a surgical referral for him for evaluation Eye screening. 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 Dental screening. He sees dentist regularly. Advance directive. He is on full code and his HCP is his Curtis [phone] Colon cancer screening. He is up to date on his colonoscopy and is on 7-mrhk-rjoyk. flu shot will be given today General health concerns discussed with patient. 09/02/2024 Annual wellness visit (ICD-10 - Z00.00) Mr. Johnson is a 72 year old gentleman with GERD, hypothyroidism, kidney stones, IBS and sees Dr. Hendricks, prostate cancer s/p prostatectomy in [address] Veras, actinic keratosis, hyperglycemia and sees ibrahima Greene and sees Dr. Coats and polycythemia vera and sees Dr. Chavarria, urethral stricture surgery by Dr. 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 Hypothyroidism. Reviewed lab work from July 2024 appears to be stableContinue Levothyroxine 25 MCG and advised to take it first thing in the morning on an empty stomach. GERD. Continue Omeprazole 20 MG daily. Prostate cancer. s/p prostatectomy in [address] Veraspraoneida since she retired status post recent left ear surgery reconstruction surgery diagnosis of squamous cell carcinoma has been seen by plastic surgery at [facility] doctor Med June 01, 2024 [place]. Sleep is stable on CPAP and sees Dr. Barbosa. He uses his inhalers as needed. Polycythemia vera. He is on Aspirin 81 MG, Hydroxyurea [address] Chavarria.most of his lab work is ordered and followed by hematology Hyperglycemia. A1c 6.8, glucose 153. He sees Dr. Escobar IBS. He sees Dr. Hendricks. heart murmur no chest pain no shortness of breath and EKG was completed today which showed normal sinus rhythm heart rate 76 bpm and QTC 422 472 normal MN and 12 over some premature ventricular complexes but no AV blocks. No acute ST changes, EKG was reviewed by me Brown. He sees Dr. Coats. He uses Ketoconazole, Sulfacetamide Sodium and Mometasone Furoate cream umbilical hernia partially reducible he is not in any pain but is worried we will get a surgical referral for him for evaluation Eye screening. 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 Dental screening. He sees dentist regularly. Advance directive. He is on full code and his HCP is his Curtis [phone] Colon cancer screening. He is up to date on his colonoscopy and is on 8-bncd-nrbhd. flu shot will be given today General health concerns discussed with patient. 09/02/2024 Gastro-esophagea l reflux disease without esophagitis (ICD-10 - K21.9) Mr. Johnson is a 72 year old gentleman with GERD, hypothyroidism, kidney stones, IBS and sees Dr. Hendricks, prostate cancer s/p prostatectomy in [address] Veras, actinic keratosis, hyperglycemia and sees ibrahima Greene and sees Dr. Coats and polycythemia vera and sees Dr. Chavarria, urethral stricture surgery by Dr. 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 Hypothyroidism. Reviewed lab work from July 2024 appears to be stableContinue Levothyroxine 25 MCG and advised to take it first thing in the morning on an empty stomach. GERD. Continue Omeprazole 20 MG daily. Prostate cancer. s/p prostatectomy in [address] Veraspraoneida since she retired status post recent left ear surgery reconstruction surgery diagnosis of squamous cell carcinoma has been seen by plastic surgery at [facility] doctor Med June 01, 2024 [place]. Sleep is stable on CPAP and sees Dr. Barbosa. He uses his inhalers as needed. Polycythemia vera. He is on Aspirin 81 MG, Hydroxyurea [address] Chavarria.most of his lab work is ordered and followed by hematology Hyperglycemia. A1c 6.8, glucose 153. He sees Dr. Escobar IBS. He sees Dr. Hendricks. heart murmur no chest pain no shortness of breath and EKG was completed today which showed normal sinus rhythm heart rate 76 bpm and QTC 422 472 normal MN and 12 over some premature ventricular complexes but no AV blocks. No acute ST changes, EKG was reviewed by me Brown. He sees Dr. Coats. He uses Ketoconazole, Sulfacetamide Sodium and Mometasone Furoate cream umbilical hernia partially reducible he is not in any pain but is worried we will get a surgical referral for him for evaluation Eye screening. 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 Dental screening. He sees dentist regularly. Advance directive. He is on full code and his HCP is his Curtis [phone] Colon cancer screening. He is up to date on his colonoscopy and is on 7-[id number]-[id number]. flu shot will be given today General health concerns discussed with patient. 09/02/2024 Polycythemia vera (ICD-10 - D45) Mr. Johnson is a 72 year old gentleman with GERD, hypothyroidism, kidney stones, IBS and sees Dr. Hendricks, prostate cancer s/p prostatectomy in [address] Veras, actinic keratosis, hyperglycemia and sees ibrahima Greene and sees Dr. Coats and polycythemia vera and sees Dr. Chavarria, urethral stricture surgery by Dr. 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 Hypothyroidism. Reviewed lab work from July 2024 appears to be stableContinue Levothyroxine 25 MCG and advised to take it first thing in the morning on an empty stomach. GERD. Continue Omeprazole 20 MG daily. Prostate cancer. s/p prostatectomy in [address] Veraspraoneida since she retired status post recent left ear surgery reconstruction surgery diagnosis of squamous cell carcinoma has been seen by plastic surgery at [facility] doctor Med June 01, 2024 [place]. Sleep is stable on CPAP and sees Dr. Barbosa. He uses his inhalers as needed. Polycythemia vera. He is on Aspirin 81 MG, Hydroxyurea [address] Chavarria.most of his lab work is ordered and followed by hematology Hyperglycemia. A1c 6.8, glucose 153. He sees Dr. Escobar IBS. He sees Dr. Hendricks. heart murmur no chest pain no shortness of breath and EKG was completed today which showed normal sinus rhythm heart rate 76 bpm and QTC 422 472 normal MN and 12 over some premature ventricular complexes but no AV blocks. No acute ST changes, EKG was reviewed by me Brown. He sees Dr. Coats. He uses Ketoconazole, Sulfacetamide Sodium and Mometasone Furoate cream umbilical hernia partially reducible he is not in any pain but is worried we will get a surgical referral for him for evaluation Eye screening. 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 Dental screening. He sees dentist regularly. Advance directive. He is on full code and his HCP is his Curtis [phone] Colon cancer screening. He is up to date on his colonoscopy and is on 2-kckc-mhosb. flu shot will be given today General health concerns discussed with patient. 09/02/2024 Personal history of malignant neoplasm of prostate (ICD-10 - Z85.46) Mr. Johnson is a 72 year old gentleman with GERD, hypothyroidism, kidney stones, IBS and sees Dr. Hendricks, prostate cancer s/p prostatectomy in [address] Veras, actinic keratosis, hyperglycemia and sees ibrahima Greene and sees Dr. Coats and polycythemia vera and sees Dr. Chavarria, urethral stricture surgery by Dr. 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 Hypothyroidism. Reviewed lab work from July 2024 appears to be stableContinue Levothyroxine 25 MCG and advised to take it first thing in the morning on an empty stomach. GERD. Continue Omeprazole 20 MG daily. Prostate cancer. s/p prostatectomy in [address] Veraspraoneida since she retired status post recent left ear surgery reconstruction surgery diagnosis of squamous cell carcinoma has been seen by plastic surgery at [facility] doctor Med June 01, 2024 [place]. Sleep is stable on CPAP and sees Dr. Barbosa. He uses his inhalers as needed. Polycythemia vera. He is on Aspirin 81 MG, Hydroxyurea [address] Chavarria.most of his lab work is ordered and followed by hematology Hyperglycemia. A1c 6.8, glucose 153. He sees Dr. Escobar IBS. He sees Dr. Hendricks. heart murmur no chest pain no shortness of breath and EKG was completed today which showed normal sinus rhythm heart rate 76 bpm and QTC 422 472 normal MN and 12 over some premature ventricular complexes but no AV blocks. No acute ST changes, EKG was reviewed by me Brown. He sees Dr. Coats. He uses Ketoconazole, Sulfacetamide Sodium and Mometasone Furoate cream umbilical hernia partially reducible he is not in any pain but is worried we will get a surgical referral for him for evaluation Eye screening. 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 Dental screening. He sees dentist regularly. Advance directive. He is on full code and his HCP is his Curtis [phone] Colon cancer screening. He is up to date on his colonoscopy and is on 3-cqrf-acohp. flu shot will be given today General health concerns discussed with patient. 09/02/2024 Obstructive sleep apnea (adult) (pediatric) (ICD-10 - G47.33) Mr. Johnson is a 72 year old gentleman with GERD, hypothyroidism, kidney stones, IBS and sees Dr. Hendricks, prostate cancer s/p prostatectomy in [address] Veras, actinic keratosis, hyperglycemia and sees ibrahima Greene and sees Dr. Coats and polycythemia vera and sees Dr. Chavarria, urethral stricture surgery by Dr. 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 Hypothyroidism. Reviewed lab work from July 2024 appears to be stableContinue Levothyroxine 25 MCG and advised to take it first thing in the morning on an empty stomach. GERD. Continue Omeprazole 20 MG daily. Prostate cancer. s/p prostatectomy in [address] Veraspraoneida since she retired status post recent left ear surgery reconstruction surgery diagnosis of squamous cell carcinoma has been seen by plastic surgery at [facility] doctor Med June 01, 2024 [place]. Sleep is stable on CPAP and sees Dr. Barbosa. He uses his inhalers as needed. Polycythemia vera. He is on Aspirin 81 MG, Hydroxyurea [address] Chavarria.most of his lab work is ordered and followed by hematology Hyperglycemia. A1c 6.8, glucose 153. He sees Dr. Escobar IBS. He sees Dr. Hendricks. heart murmur no chest pain no shortness of breath and EKG was completed today which showed normal sinus rhythm heart rate 76 bpm and QTC 422 472 normal MN and 12 over some premature ventricular complexes but no AV blocks. No acute ST changes, EKG was reviewed by me Brown. He sees Dr. Coats. He uses Ketoconazole, Sulfacetamide Sodium and Mometasone Furoate cream umbilical hernia partially reducible he is not in any pain but is worried we will get a surgical referral for him for evaluation Eye screening. 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 Dental screening. He sees dentist regularly. Advance directive. He is on full code and his HCP is his Curtis [phone] Colon cancer screening. He is up to date on his colonoscopy and is on 7-[id number]-[id number]. flu shot will be given today General health concerns discussed with patient. 09/02/2024 Rosacea, unspecified (ICD-10 - L71.9) Mr. Johnson is a 72 year old gentleman with GERD, hypothyroidism, kidney stones, IBS and sees Dr. Hendricks, prostate cancer s/p prostatectomy in [address] Veras, actinic keratosis, hyperglycemia and sees Dr. Escobar, rosacea and sees Dr. Coats and polycythemia vera and sees Dr. Chavarria, urethral stricture surgery by Dr. 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 Hypothyroidism. Reviewed lab work from July 2024 appears to be stableContinue Levothyroxine 25 MCG and advised to take it first thing in the morning on an empty stomach. GERD. Continue Omeprazole 20 MG daily. Prostate cancer. s/p prostatectomy in [address] Veraspractice since she retired status post recent left ear surgery reconstruction surgery diagnosis of squamous cell carcinoma has been seen by plastic surgery at [facility] doctor Med June 01, 2024 [facility]. Sleep is stable on CPAP and sees Dr. Barbosa. He uses his inhalers as needed. Polycythemia vera. He is on Aspirin 81 MG, Hydroxyurea [address] Chavarria.most of his lab work is ordered and followed by hematology Hyperglycemia. A1c 6.8, glucose 153. He sees Dr. Escobar IBS. He sees Dr. Hendricks. heart murmur no chest pain no shortness of breath and EKG was completed today which showed normal sinus rhythm heart rate 76 bpm and QTC 422 472 normal MN and 12 over some premature ventricular complexes but no AV blocks. No acute ST changes, EKG was reviewed by me Brown. He sees Dr. Coats. He uses Ketoconazole, Sulfacetamide Sodium and Mometasone Furoate cream umbilical hernia partially reducible he is not in any pain but is worried we will get a surgical referral for him for evaluation Eye screening. 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 Dental screening. He sees dentist regularly. Advance directive. He is on full code and his HCP is his Curtis [phone] Colon cancer screening. He is up to date on his colonoscopy and is on 8-hnkl-iftna. flu shot will be given today General health concerns discussed with patient. 09/02/2024 Encounter for immunization (ICD-10 - Z23) Mr. Johnson is a 72 year old gentleman with GERD, hypothyroidism, kidney stones, IBS and sees Dr. Hendricks, prostate cancer s/p prostatectomy in [address] Veras, actinic keratosis, hyperglycemia and sees ibrahima Greene and sees Dr. Coats and polycythemia vera and sees Dr. Chavarria, urethral stricture surgery by Dr. 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 Hypothyroidism. Reviewed lab work from July 2024 appears to be stableContinue Levothyroxine 25 MCG and advised to take it first thing in the morning on an empty stomach. GERD. Continue Omeprazole 20 MG daily. Prostate cancer. s/p prostatectomy in [address] Veraspraoneida since she retired status post recent left ear surgery reconstruction surgery diagnosis of squamous cell carcinoma has been seen by plastic surgery at [facility] doctor Med June 01, 2024 [facility]. Sleep is stable on CPAP and sees Dr. Barbosa. He uses his inhalers as needed. Polycythemia vera. He is on Aspirin 81 MG, Hydroxyurea [address] Chavarria.most of his lab work is ordered and followed by hematology Hyperglycemia. A1c 6.8, glucose 153. He sees Dr. Escobar IBS. He sees Dr. Hendricks. heart murmur no chest pain no shortness of breath and EKG was completed today which showed normal sinus rhythm heart rate 76 bpm and QTC 422 472 normal [place] and 12 over some premature ventricular complexes but no AV blocks. No acute ST changes, EKG was reviewed by me Brown. He sees Dr. Coats. He uses Ketoconazole, Sulfacetamide Sodium and Mometasone Furoate cream umbilical hernia partially reducible he is not in any pain but is worried we will get a surgical referral for him for evaluation Eye screening. 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 Dental screening. He sees dentist regularly. Advance directive. He is on full code and his HCP is his Curtis [phone] Colon cancer screening. He is up to date on his colonoscopy and is on 0-ayya-ksuon. flu shot will be given today General health concerns discussed with patient. 09/02/2024 Varicose veins of bilateral lower extremities with pain (ICD-10 - I83.813) Mr. Johnson is a 72 year old gentleman with GERD, hypothyroidism, kidney stones, IBS and sees Dr. Hendricks, prostate cancer s/p prostatectomy in [address] Veras, actinic keratosis, hyperglycemia and sees ibrahima Greene and sees Dr. Coats and polycythemia vera and sees Dr. Chavarria, urethral stricture surgery by Dr. 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 Hypothyroidism. Reviewed lab work from July 2024 appears to be stableContinue Levothyroxine 25 MCG and advised to take it first thing in the morning on an empty stomach. GERD. Continue Omeprazole 20 MG daily. Prostate cancer. s/p prostatectomy in [address] Veraspraoneida since she retired status post recent left ear surgery reconstruction surgery diagnosis of squamous cell carcinoma has been seen by plastic surgery at [facility] doctor Med June 01, 2024 [facility]. Sleep is stable on CPAP and sees Dr. Barbosa. He uses his inhalers as needed. Polycythemia vera. He is on Aspirin 81 MG, Hydroxyurea [address] Chavarria.most of his lab work is ordered and followed by hematology Hyperglycemia. A1c 6.8, glucose 153. He sees Dr. Escobar IBS. He sees Dr. Hendricks. heart murmur no chest pain no shortness of breath and EKG was completed today which showed normal sinus rhythm heart rate 76 bpm and QTC 422 472 normal [place] and 12 over some premature ventricular complexes but no AV blocks. No acute ST changes, EKG was reviewed by me Brown. He sees Dr. Coats. He uses Ketoconazole, Sulfacetamide Sodium and Mometasone Furoate cream umbilical hernia partially reducible he is not in any pain but is worried we will get a surgical referral for him for evaluation Eye screening. 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 Dental screening. He sees dentist regularly. Advance directive. He is on full code and his HCP is his Curtis [phone] Colon cancer screening. He is up to date on his colonoscopy and is on 1-bvau-pdnvy. flu shot will be given today General health concerns discussed with patient. Plan Of Treatment Referrals Referral Date Details 09/02/2024 09/02/2024, Evaluati on and management Next Appt Details Follow Up: LITA,1 Year, Neli n: Provider Name:TROY LOBO , 09/04/2025 10:00:00 AM, [address] [place] [address], [phone], Progress Notes * FEDERICO JOHNSONDOB:1950 ([age] yo M)Acc No.[id number]:09/02/2024 Progress Note Patient:?FEDERICO JOHNSON Provider:?KRYSTEN Hunt:1950???Age:73 Y???Sex:Male Que e:09/02/2024 Address:[address] [place], [place] [id number] Pcp:TROY LOBO Subjective: * Chief Complaints: * ???Medicare Wellness * HPI: ???Internal Medicine:?Mr. Johnson is a 73 year old gentleman with GERD, hypothyroidism, kidney stones, IBS and sees Dr. Hendricks, prostate cancer s/p prostatectomy in 2009 andwas previously [address] Dr[address] Veras who is retired but he still following with our practice.? actinic keratosis, hyperglycemia and sees Dr. Escobar, rosacea and sees Dr. Coats and polycythemia vera and sees Dr. Chavarria, urethral stricture surgery DM type II diet controlled and followed by endocrinology? 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 June 01 is here today??for medicare annual physical. He is taking his medications as directed. Vision and hearing are stable. He is physically active without exertional chest pain, pressure or shortness of breath. He does not appear anxious or depressed. He sleeps well on CPAP, appetite is good. No GI or symptoms. He denies any other active issues or concerns. ???Medicare Annual Visit:?Type of Visit?-?Subsequent Annual Wellness Visit ?Language or Communication barrier addressed?-?Yes ?Health Risk Assessment?DEMOGRAPHICS?- ?- How old are [age]??[age] ?- How would you best describe your ethnicity??Non- White ?- How would you describe your marital status?- How would you describe your employment status??Retired ?- How many children do you have??one ?RISK ASSESSMENT?- ?- Do you currently use tobacco products??No ?- Have you ever used tobacco products??No ?- What type of tobacco do you use or have you used??__ ?- (If cigarette smoker) How long have you smoked??__ ?- (If cigarette smoker) How many cigarettes do you smoke per day??__ ?- How many alcoholic beverages (i.e. 1oz hard liquor, one glass of wine, one bottle of beer) do you drink daily, on average??None ?- Have you ever felt the need to cut down on drinking??No ?- Have people annoyed you with criticism of your drinking??No ?- Do you or have you felt guilty for drinking??No ?- Have you ever felt the need to drink first thing in the morning to steady your nerves or to get rid of a hangover??No ?- How often do you exercise??Never ?- How vigorously can you exercise??Minimally ?- How often do you use seatbelts??Always ?- In the past month, how often have you had sex??__ ?- Do you have any significant difficulties or dysfunction during sex??No, never ?- How many partners do you have??__ ?- How often do you experience pain with sex??Never ?- How often do you use condoms during sex??Always ?MENTAL HEALTH ASSESSMENT?- ?- In the past two weeks, how often have you felt depressed, down or hopeless??Never ?- In the past month, how often have you felt anxious or stressed??Never ?- What is your average level of daily stress??None ?- In the past two weeks, how often have you felt a lack of pleasure or interest in doing things??Never ?- In the past two weeks, how often have you had difficulty falling asleep or episodes of sleeping too long??Never ?- In the past two weeks, how often have you had a lack of energy??Never ?- In the past two weeks, how often have you had feelings of being better off or thoughts of harming yourself??Never ?- Have you ever attempted to harm yourself??No ?GENERAL HEALTH/PAIN ASSESSMENT?- ?- In the past month, how often did you experience pain??Never ?- In the past month, how much has pain affected your ability to work??Not at all ?- In the past month, how much has pain affected your ability to walk??Not at all ?- In the past month, how much has pain affected your relationship with other people??Not at all ?- On a scale of 1-10, how bad would you rate your average daily pain??No pain he only has pain when he plays golf or some stiffness in the morning but not a daily pain ?- How would you describe the ease with which you can prepare your own food??Very easy ?- How would you describe the ease with which you can bathe or clean yourself??Very easy ?- How would you describe the ease with which you can dress yourself??Very easy ?- How hard is it to use the toilet by yourself??Not hard at all ?- How would you describe the ease with which you can do your own shopping??Very easy ?- How would you describe the ease with which you can get around your house??Very easy ?- How would you describe your ability to pay your bills??Very good ?- How would you describe your ability to plan your daily and monthly budgets??Very good ?- How would you describe your ability to do routine housework??Very good ?HOME SAFETY/ASSISTANCE?- ?- Do you feel like you are safe in your current home??Yes ?- How many times have you fallen in your home??Never ?- How much would you need to change your living circumstances to feel safe??Not at all ?- Do you feel that living somewhere else would be good for you??No ?- How much help do you feel you need at home??None at all ?- How much does your family help with daily or routine chores??Not at all ?Immunization Status addressed?-?Yes ?Depression Screening?-?No ?Vision Screening?-?No ?Hearing Screening?-?No ?Fall Risk and Home Safety?-?Negative, no falls in the past year, no difficulty walking, or getting out of bed or chair ?Medication evaluation and reconcilliation performed?Yes ?Vision screening recommended?Yes ?Literature offered to the patient?Yes ?Referrals?physical therapy offered for gait balance and mobility evaluation, fall prevention home evauation offered, DEXA screening offered ?Get Up and Go Evaluation?under 20 seconds ?Psychosocial Risks?-?No overt psychosocial risks shown, observed, or mentioned ?Behavioral Risks?-?Patient seems very well adjusted and no behavorial issues noted ?Activities of daily living?-?Not impaired ?Cognitive Screening?-?No overt cognitive deficiency is apparent by direct observation ???Depression Screening:?PHQ-9?Little interest or pleasure in doing things?Not at all ?Feeling down, depressed, or hopeless?Not at all ?Trouble falling or staying asleep, or sleeping too much?Not at all ?Feeling tired or having little energy?Several days ?Poor appetite or overeating?Not at all ?Feeling bad about yourself or that you are a failure, or have let yourself or your family down?Not at all ?Trouble concentrating on things, such as reading the newspaper or watching television?Not at all ?Moving or speaking so slowly that other people could have noticed; or the opposite, being so fidgety or restless that you have been moving around a lot more than usual?Not at all ?Thoughts that you would be better off or of hurting yourself in some way?Not at all ?Total Score?1 ?Interpretation?Minimal Depression * ROS:?General/Constitutional:?Overall health?Good.?Change in appetite?denies.?Chills?denies.?Fever?denies.?Night sweats?denies.?Sleep disturbance?denies.?Weight gain?denies.?Weight loss?admits, is significant.?Neurologic:?Difficulty speaking?denies.?Dizziness?denies.?Gait abnormality?denies.?Headache?denies.?Loss of strength?denies.?Memory loss?denies.?Seizures?denies.?Tingling/Numbness?denies .?Ophthalmologic:?Blurred vision?denies.?Discharge?denies.?Dry eye?denies.?Red eye?denies.?ENT:?Change in Voice?Denies.?Cold Symptoms?Denies.?Cough?, Denies.?Dizziness?Denies.?Nasal Congestion?Denies.?Otalgia?Denies.?postnasal drip?Denies.?Blocked ear?denies.?Decreased hearing numbness around the left ear, also decreased hearing in the left ear since surgery.?Nosebleed?denies.?Snoring?denies.?Cardiovascular:?Diaphoresis?Denies.?Pedal Edema?Denies.?PND (Paroxsymal nocturnal dyspnea)?Denies.?Chest pain?denies.?Difficulty laying flat?denies.?Dyspnea on exertion?denies.?Heart murmur?denies.?Orthopnea?denies.?Respiratory:?Snoring?denies.?Asthma?denies.?Cough?denies.?Shortness of breath with exertion?denies.?Sputum production?denies.?Wheezing?denies.?Gastrointestinal:?Change in bowel habits?denies.?Constipation?denies.?Decreased appetite?denies.?Diarrhea?denies.?Heartburn?denies.?Nausea?denies.?Vomiting?wilman es.?Musculoskeletal:?tingling/numbness?Denies.?myalgias?Denies.?Joint Swelling?Denies.?extremeties?normal.?Arthritis?denies.?Back problems?denies.?Carpal tunnel?denies.?Joint stiffness?denies.?Muscle aches?denies.?Endocrine:?Bowel Changes?Denies.?Breast Discharge?Denies.?poor libido?Denies.?Cold intolerance?denies.?Excessive sweating?denies.?Excessive thirst?denies.?Frequent urination?denies.?Thyroid problems?denies.?Skin:?Bruising?Denies.?Eczema?denies.?Hair changes?denies.?Rash?denies.?Skin lesion(s)?denies.?Psychiatric:?Anxiety?denies.?Depressed mood?denies.?Difficulty sleeping?denies.?Nervous breakdown?denies.?Substance abuse?denies.?Urology:?abnormal menstrual bleeding?denies.?blood in urine?denies.?burning on urination?denies.?difficulty urinating?denies.?discharge?denies.?dysuria?denies.? * Medical History:? * Surgical History:?prostatect rose marie 2010squamous cell carcinoma of the left ear status post surgery removal status post skin grafting by plastic surgery Dr. Jovel at [facility] April 2024 * Hospitalization/Major Diagno stic Procedure:? * Family History:?Siblings: co ronary artery disease, diagnosed with Diabetes.? * Medications:?TakingCialis 5 MG Tablet 1 tablet as needed Orally Once a day Cilostazol 50 MG Tablet 1 tablet 30 minutes before or 2 hours after breakfast and dinner Orally Twice a day Bactrim 400-80 MG Tablet 1 tablet Orally Once a day Sulfacetamide Sodium 10 % Cream 1 application Externally Ketoconazole 2 % Cream 1 application Externally Once a day Mometasone Furoate 0.1 % Cream 1 application Externally Once a day Fluticasone Propionate 50 MCG/ACT Suspension 1 spray in each nostril Nasally Once a day Vitamin C 500 MG Tablet 1 tablet Orally Once a day Probiotic Omeprazole 20 MG Capsule Delayed Release 1 capsule 30 minutes before morning meal Orally Once a day Loperamide HCl 2 MG Capsule 2 capsule as needed Orally twice a day Levothyroxine Sodium 25 MCG Tablet 1 tablet in the morning on an empty stomach Orally Once a day Hydroxyurea 500 MG Capsule 2 capsule Orally Once a day Folic Acid 1 MG Tablet 1 tablet Orally Once a day Aspirin Adult Low Dose 81 MG Tablet Delayed Release 1 tablet Orally Once a day Ipratropium [place] 0.03 % Solution 2 sprays in each nostril Nasally Twice a day Taking Cialis 5 MG Tablet 1 tablet as needed Orally Once a day Taking Cilostazol 50 MG Tablet 1 tablet 30 minutes before or 2 hours after breakfast and dinner Orally Twice a day Taking Bactrim 400-80 MG Tablet 1 tablet Orally Once a day Taking Sulfacetamide Sodium 10 % Cream 1 application Externally Taking Ketoconazole 2 % Cream 1 application Externally Once a day Taking Mometasone Furoate 0.1 % Cream 1 application Externally Once a day Taking Fluticasone Propionate 50 MCG/ACT Suspension 1 spray in each nostril Nasally Once a day Taking Vitamin C 500 MG Tablet 1 tablet Orally Once a day Taking Probiotic Taking Omeprazole 20 MG Capsule Delayed Release 1 capsule 30 minutes before morning meal Orally Once a day Taking Loperamide HCl 2 MG Capsule 2 capsule as needed Orally twice a day Taking Levothyroxine Sodium 25 MCG Tablet 1 tablet in the morning on an empty stomach Orally Once a day Taking Hydroxyurea 500 MG Capsule 2 capsule Orally Once a day Taking Folic Acid 1 MG Tablet 1 tablet Orally Once a day Taking Aspirin Adult Low Dose 81 MG Tablet Delayed Release 1 tablet Orally Once a day Taking Ipratropium [place] 0.03 % Solution 2 sprays in each nostril Nasally Twice a day Not-TakingMethenamine Hippurate 1 GM Tablet 1 tablet Orally Twice a day Medication List reviewed and reconciled with the patientNot-Taking Methenamine Hippurate 1 GM Tablet 1 tablet Orally Twice a day Medication List reviewed and reconciled with the patient * Allergies:?Ciprofloxacin: Al lergyDoxycycline: AllergyPenicillin: AllergyPsyllium: Allergyno[Allergies Verified] Objective: * Vitals:?Temp:97.3F, Oxygen s at %:100%, HR:72/min, BP:118/52mm Hg, Wt:194.2lbs, BMI:28.68Index, Ht: 69 in. * ???Past Orders: ???Lab:CBC WITH AUTO DIFF (O rder Date - 07/28/2024) (Collection Date & Time - 07/28/2024 09:24 AM) ? Value Reference Range ?BAND 1 - % ?BANDS ABSOLUTE 0.11 H 0-0 - x10-3/uL ?BASOPHIL 3 - % ?BASOS ABSOLUTE CALC 0.32 H 0-0.2 - x10-3/uL ?EOSINOPHIL 2 - % ?EOS ABSOLUTE CALC 0.21 0- 0.5 - x10-3/uL ?HEMATOCRIT 32.7 L 42-54 - % ?HEMOGLOBIN 9.8 L 13.5-17.5 - g/dL ?LYMPHS ABSOLUTE CALC 1.59 1.0-5.0 - x10-3/uL ?LYMPHOCYTE 15 - % ?MCH 30.4 27-32 - pg ?MCHC 30.0 L 32-37 - g/dL ?MCV 101.6 H 79-98 - fL ?MONO ABSOLUTE CALC 0.53 0 .2-1.0 - x10-3/uL ?MONOCYTE 5 - % ?MEAN PLATELET VOLUME 11.2 H 7-11 - fL ?NEUTROPHIL 74 - % ?ABSOLUTE NEUT 7.84 H 1.5-7. 0 - x10-3/uL ?NRBC # AUTO DIFF 0.10 <0. 1 - x10-3/uL ?NRBC % AUTO DIFF 0.9 <1 - % ?OVALOCYTES 5-10% - ?PLT COUNT 424 H 130-400 - x10-3/uL ?PLATELET MORPHOLOGY LARGE PLATELETS SEEN - ?RBC 3.2 L 4.5-5.5 - x10-6 /uL ?RBC MORPH COMMENT 1 . - ?RDW 21.1 H 11-15 - % ?TEAR DROP CELLS 5-10% - ?WBC 10.6 4.8-10.8 - x10- 3/uL Lab:COMPREHENSIVE METABOLIC PANEL * Collection Date 07/28/2024 07/28/2024 Collection Time 09:24 AM 09:24 AM Order Date 07/28/2024 07/28/2024 ALBUMIN 4.1 (Ref Range: 3.2-5.0 G/dL) 4.1 (Ref Range: 3.2-5.0 G/dL) ALK PHOS 70 (Ref Range: 42-121 U/L) 70 (Ref Range: 42-121 U/L) SGPT 26 (Ref Range: 10-60 U/L) 25 (Ref Range: 10-60 U/L) ANION GAP 4 (Ref Range: 3-11) 6 (Ref Range: 3-11) SGOT 20 (Ref Range: 10-42 U/L) 22 (Ref Range: 10-42 U/L) BILI,TOTAL 0.7 (Ref Range: 0.0-1.4 mg/dL) 0.7 (Ref Range: 0.0-1.4 mg/dL) BUN 16 (Ref Range: 5-25 mg/dL) 16 (Ref Range: 5-25 mg/dL) CALCIUM 9.1 (Ref Range: 8.5-10.5 mg/dL) 9.2 (Ref Range: 8.5-10.5 mg/dL) CHLORIDE 109 (Ref Range: 96-110 mmol/L) 109 (Ref Range: 96-110 mmol/L) CO2 29 (Ref Range: 21-32 mmol/L) 27 (Ref Range: 21-32 mmol/L) CREAT 0.99 (Ref Range: 0.7-1.3 mg/dL) 0.98 (Ref Range: 0.7-1.3 mg/dL) GLOMERULAR FILTRATION RATE 81 (Ref Range: >60) 82 (Ref Range: >60) GLUCOSE 144?H (Ref Range: 70-100 mg/dL) 143?H (Ref Range: 70-100 mg/dL) POTASSIUM 4.8 (Ref Range: 3.5-5.5 mmol/L) 4.8 (Ref Range: 3.5-5.5 mmol/L) SODIUM 142 (Ref Range: 135-145 mEq/L) 142 (Ref Range: 135-145 mEq/L) TOTAL PROTEIN 6.5 (Ref Range: 6.0-8.0 G/dL) 6.5 (Ref Range: 6.0-8.0 G/dL) ???Lab:FREE T4 CASCADE (Order Date - 07/28/2024) (Collection Date & Time - 07/28/2024 09:24 AM)?ValueReference Range?FREE T4 CASCADE0.910.70- 1.80 - ng/dL ???Lab:GLYCOHEMOGLOBIN PROFILE (Order Date - 07/28/2024) (Collection Date & Time - 07/28/2024 09:24 AM)?ValueReference Range?ESTIMATED AVERAGE NAVYWBC599- mg/dL?GLYCATED HEMOGLOBIN A1C6.4<6.5 - % ???Lab:LACTATE DEHYDROGENASE (Order Date - 07/28/2024) (Collection Date & Time - 07/28/2024 09:24 AM)?ValueReference Range?LACTATE [id number] K136-302 - U/L ???Lab:LIPID PROFILE (Order Date - 07/28/2024) (Collection Date & Time - 07/28/2024 09:24 AM)?ValueReference Range?QZXTAFWEGQL4784-666 - mg/dL?HDL HDJJOMPOPTN72>40 - mg/dL?LDL DZXQXSPUNT444-002 - mg/dL ?TC-HDLC RATIO2.90-4.4 - mg/dL?LAKKZWXXXKCDY4589-960 - mg/dL ???Lab:TSH CASCADE (Order Date - 07/28/2024) (Collection Date & Time - 07/28/2024 09:24 AM)?ValueReference Range?TSH CASCADE6.61H0.40- 4.00 - uIU/ml ???Lab:MICROALB/CREAT RATIO, RANDOM (Order Date - 07/28/2024) (Collection Date & Time - 409:24 AM)?ValueReference Range?CREATININE, RANDOM URINE71- mg/dL?MICROALB/CRE RATIO HZDWDI72.4H0.0-30.0 - mg/G ?MICROALBUMIN, NBBNWO27.20.0-29.0 - mg/L * Examination: ???General Examination: ?Psychiatry?Normal.?GENERAL APPEARANCE:?Well developed, well nourished, in no acute distress.?MUSCULOSKELETAL:?normal .?HEAD:?Normocephalic, atraumatic.?EYES:?Pupils equal, round, reactive to light and accommodation, sclera non-icteric.?EARS:?left ear pinna has an indentation, he also has a skin graft present in the ear canal. Scars from the recent ear surgery involving the left side of the scalp /skull.?ORAL CAVITY:?Normal.?THROAT:?Clear.?OROPHARYNX?Normal.?SINUSES?Normal.?NECK/THYROID:?Neck supple, full range of motion, no cervical lymphadenopathy.Carotid bruit.?SKIN:?Warm and dry, no suspicious lesions.?HEART:?S1, S2 normalregular rate and rhythmgrade 2/6 systolic murmur at left sternal border.?LUNGS:?Normal.?BREASTS:?__.?ABDOMEN:?Soft, nontender, nondistended, bowel sounds present,umbilical hernia present soft and partially reducible.?EXTREMITIES:?varicose veins.?PERIPHERAL PULSES:?Normal.?NEUROLOGIC:?Nonfocal,? 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 .? Assessment: * Assessment: 1.?Annual wellness visit - Z 00.00 (Primary)???2.?Hypothyroidism, unspecified - E03.9???3.?Gastro-esophageal reflux disease without esophagitis - K21.9???4.?Polycythemia vera - D45???5.?Personal history of malignant neoplasm of prostate - Z85.46???6.?Obstructive sleep apnea (adult) (pediatric) - G47.33???7.?Rosacea, unspecified - L71.9???8.?Encounter for immunization - Z23???9.?Varicose veins of bilateral lower extremities with pain - I83.813??? Mr. Johnson is a 72 year old g entleman with GERD, hypothyroidism, kidney stones, IBS and sees Dr. Hendricks, prostate cancer s/p prostatectomy in [address] Veras, actinic keratosis, hyperglycemia and sees Dr. Escobar, rosatnajaa and sees Dr. Coats and polycythemia vera and sees Dr. Chavarria, urethral stricture surgery by Dr. 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 Hypothyroidism. Reviewed lab work from July 2024 appears to be stableContinue Levothyroxine 25 MCG and advised to take it first thing in the morning on an empty stomach. GERD. Continue Omeprazole 20 MG daily. Prostate cancer. s/p prostatectomy in [address] Veraspractice since she retired status post recent left ear surgery reconstruction surgery diagnosis of squamous cell carcinoma has been seen by plastic surgery at [facility] doctor? Med??June 01, 2024 [facility]. Sleep is stable on CPAP and sees Dr. Barbosa. He uses his inhalers as needed. Polycythemia vera. He is on Aspirin 81 MG, Hydroxyurea [address] Chavarria.most of his lab work is ordered and followed by? hematology Hyperglycemia. A1c 6.8, glucose 153. He sees Dr. Escobar IBS. He sees Dr. Hendricks. heart murmur no chest pain no shortness of breath and EKG was completed today which showed normal sinus rhythm heart rate 76 bpm and QTC 422 472 normal MN and 12 over some premature ventricular complexes but no AV blocks.? No acute ST changes, EKG was reviewed by me Brown. He sees Dr. Coats. He uses Ketoconazole, Sulfacetamide Sodium and Mometasone Furoate cream umbilical hernia partially reducible he is not in any pain but is worried we will get a surgical referral for him for evaluation Eye screening. 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 Dental screening. He sees dentist regularly. Advance directive. He is on full code and his HCP is his Curtis [phone] Colon cancer screening. He is up to date on his colonoscopy and is on 2-unyp-lfuti. flu shot will be given today General health concerns discussed with patient. Plan: * Treatment: * Immunizations:? Fluzone High Dose 07653 : 0.5 mL (Route: Intramuscular) given by Wenceslao Morelos on Left Deltoid (Encounter for immunization) * Procedure Codes:?G0439 ANNUA L WELLNESS VST; PPS SUBSQT [id number] ELECTROCARDIOGRAM, [id number] Flu vaccine no Preserv 3 and > * Preventive Medicine:? ??YOUR PREVENTIVE WELLNESS PLAN:?BMI, Height, and Weight:?The Recommended Frequency is:?Annually ?Blood Pressure:?The Recommended Frequency is:?Every 2 years, if BP </= 120/80 mm Hg, Annually, if BP >120-139/80-89 mm Hg ?Vision:?The Recommended Frequency is:?Every 3 years up to age 40, Every 2 years aged 40+ ?Abdominal Aortic Aneurysm:?The Recommended Frequency is:?Once, between the age range of 65-75 and for those who have smoked 100+ cigarettes in lifetime ?Cholesterol Testing:?The Recommended Frequency is:?Regularly beginning at age 20 with risk factors ?Diabetes Screening:?The Recommended Frequency is:?With a sustained BP >/= 135/80 mm Hg ?Colorectal Cancer Screening:?The Recommended Frequency is:?Annually, Fecal Occult Blood Stool (FOBS), Every 5 years, Sigmoidoscopy with FOBS, Every 10 years, Colonoscopy ?Prostate Cancer Screening (Digital Rectal Exam [ALFRED]/Prostate Specific Antigen [PSA]):?The Recommended Frequency is:?Annually, age 50 or older ?Sexually Transmitted Diseases (STDs):?The Recommended Frequency is:?As necessary for those with risk factors ?Depression Screening:?The Recommended Frequency is:?As necessary for those with risk factors ?Alcohol Misuse Screening:?The Recommended Frequency is:?As necessary for those with risk factors ?Pneumococcal (Pneumonia) Vaccine:?The Recommended Frequency is:?1-2 doses up to age 64, 1 dose age 65+ ?Influenza (Flu) Vaccine:?The Recommended Frequency is:?Annually ?Other:?____.?Major Risk Factors:?Your Major Risk Factors Include:?Diabetes, Fall risk, Hypertension, Obesity, Smoking use, Other ?Recommendations For Improvement?The recommendations are:?Diet, Exercise, Tobacco cessation, Weight management, Other ?Additional Resources Included:?follow-up instructions, handouts, referrals.?FLU - NO COVID - NO TDAP - NO SHINGREX - NO PNEMONIA - NO COLONOSCOPY - YES, LAUREN EYE EXAM - YES, DR. RORY CASTELLANOS - YES, NE DERM This plan was discussed, printed, and handed to patient. * Follow Up:?LITA,1 Year * * Sign off status: Completed true * Provider:?Kayleigh Mcghee, Date:?09/02/2024 Generated for Annie navas/Casandra/eTransmitting on:?01/03/2025 10:48 AM EST History and Physical Notes * HPI (History of Present Illness) Category Sub-Category Detail Notes Category Not es Depression Screening PHQ-9 Little inte rest or pleasure in doing things: Not at all Feeling down, depressed, or hopeless: No t at all Trouble falling or staying asleep, or sl eeping too much: Not at all Feeling tired or having little energy: S everal days Poor appetite or overeating: Not at all Feeling bad about yourself o r that you are a failure, or have let yourself or your family down: Not at all Trouble concentrating on thi ngs, such as reading the newspaper or watching television: Not at all Moving or speaking so slowly that other people could have noticed; or the opposite, being so fidgety or restless that you have been moving around a lot more than usual: Not at all Thoughts that you would be b josiah off or of hurting yourself in some way: Not at all Total Score: 1 Interpretation: Minimal Depression Medicare Annual Visit Type of Visit -: Subsequent Annual [facility] Visit Language or Communication barrier addressed -: Y es Health Risk Assessment DEMOGRAPHICS: - - How old [age] - How would you best describ e your ethnicity?: Non- White - How would you describe you r marital status?: - How would you describe you r employment status?: Retired - How many children do you have?: one RISK ASSESSMENT: - - Do you currently use tobacco products? : No - Have you ever used tobacco products?: No - What type of tobacco do yo u use or have you used?: __ - (If cigarette smoker) How long have you smoked?: __ - (If cigarette smoker) How many cigarettes do you smoke per day?: __ - How many alcoholic beverag es (i.e. 1oz hard liquor, one glass of wine, one bottle of beer) do you drink daily, on average?: None - Have you ever felt the nee d to cut down on drinking?: No - Have people annoyed you wi th criticism of your drinking?: No - Do you or have you felt gu ilty for drinking?: No - Have you ever felt the nee d to drink first thing in the morning to steady your nerves or to get rid of a hangover?: No - How often do you exercise?: Never - How vigorously can you exercise?: Mini suzy - How often do you use seatbelts?: Alway s - In the past month, how oft en have you had sex?: __ - Do you have any significan t difficulties or dysfunction during sex?: No, never - How many partners do you have?: __ - How often do you experienc e pain with sex?: Never - How often do you use condo ms during sex?: Always MENTAL HEALTH ASSESSMENT: - - In the past two weeks, how often have you felt depressed, down or hopeless?: Never - In the past month, how oft en have you felt anxious or stressed?: Never - What is your average level of daily stress?: None - In the past two weeks, how often have you felt a lack of pleasure or interest in doing things?: Never - In the past two weeks, how often have you had difficulty falling asleep or episodes of sleeping too long?: Never - In the past two weeks, how often have you had a lack of energy?: Never - In the past two weeks, how often have you had feelings of being better off or thoughts of harming yourself?: Never - Have you ever attempted to harm yourself?: No GENERAL HEALTH/PAIN ASSESSMENT: - - In the past month, how oft en did you experience pain?: Never - In the past month, how muc h has pain affected your ability to work?: Not at all - In the past month, how muc h has pain affected your ability to walk?: Not at all - In the past month, how muc h has pain affected your relationship with other people?: Not at all - On a scale of 1-10, how ba d would you rate your average daily pain?: No pain he only has pain when he plays golf or some stiffness in the morning but not a daily pain - How would you describe the ease with which you can prepare your own food?: Very easy - How would you describe the ease with which you can bathe or clean yourself?: Very easy - How would you describe the ease with which you can dress yourself?: Very easy - How hard is it to use the toilet by yourself?: Not hard at all - How would you describe the ease with which you can do your own shopping?: Very easy - How would you describe the ease with which you can get around your house?: Very easy - How would you describe you r ability to pay your bills?: Very good - How would you describe you r ability to plan your daily and monthly budgets?: Very good - How would you describe you r ability to do routine housework?: Very good HOME SAFETY/ASSISTANCE: - - Do you feel like you are s afe in your current home?: Yes - How many times have you fa llen in your home?: Never - How much would you need to change your living circumstances to feel safe?: Not at all - Do you feel that living so mewhere else would be good for you?: No - How much help do you feel you need at home?: None at all - How much does your family help with daily or routine chores?: Not at all Immunization Status addressed -: Yes Vision Screening -: No Depression Screening -: No Hearing Screening -: No Fall Risk and Home Safety -: Negative, n o falls in the past year, no difficulty walking, or getting out of bed or chair Medication evaluation and reconcilliatio n performed: Yes Vision screening recommended: Yes Literature offered to the patient: Yes Referrals: physical therapy offered for gait balance and mobility evaluation, fall prevention home evauation offered, DEXA screening offered Get Up and Go Evaluation: under 20 secon ds Psychosocial Risks -: No overt psychoso cial risks shown, observed, or mentioned Behavioral Risks -: Patient seems kwan y well adjusted and no behavorial issues noted Activities of daily living -: Not impaired Cognitive Screening -: No overt cognitiv e deficiency is apparent by direct observation Internal Medicine Mr. Johnson is a 73 year old gentleman with GERD, hypothyroidism, kidney stones, IBS and sees Dr. Hendricks, prostate cancer s/p prostatectomy in 2009 [address] Veras who is retired but he still following with our practice. actinic keratosis, hyperglycemia and sees Dr. Escobar, rosacea and sees Dr. Coats and polycythemia vera and sees Dr. 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 He is taking his medications as directed. Vision and hearing are stable. He is physically active without exertional chest pain, pressure or shortness of breath. He does not appear anxious or depressed. He sleeps well on CPAP, appetite is good. No GI or symptoms. He denies any other active issues or concerns. Examination Category Sub-Category Detail Notes Category Not es General Examination GENERAL APPEARANCE: Well dev eloped, well nourished, in no acute distress HEAD: Normocephalic, atrau matic EYES: Pupils equal, round, reactive to light and accommodation, sclera non-icteric EARS: left ear pinna has a n indentation, he also has a skin graft present in the ear canal. Scars from the recent ear surgery involving the left side of the scalp /skull THROAT: Clear NECK/THYROID: Neck supple, full ra nge of motion, no cervical lymphadenopathy. Carotid bruit HEART: S1, S2 normal regula r rate and rhythm grade 2/6 systolic murmur at left sternal border LUNGS: Normal ABDOMEN: Soft, nontender, non distended, bowel sounds present, umbilical hernia present soft and partially reducible NEUROLOGIC: Nonfocal, appropriat e motor strength normal upper and lower extremities, sensory exam intact SKIN: Warm and dry, no michelle picious lesions EXTREMITIES: varicose veins PERIPHERAL PULSES: Normal BREASTS: __ MUSCULOSKELETAL: normal MALE GENITOURINARY: __ FEMALE GENITOURINARY: __ ORAL CAVITY: Normal PODIATRIC: NORMAL Psychiatry Normal OROPHARYNX Normal SINUSES Normal Work Force Advisor Consultation Request Notes Referral Date Referring Provider Referred Provider Not es 09/02/2024 Kayleigh Mcghee , Evaluation and management
== END 2025-01-03 10:18 | disposition home or self-care (01) ==
PROVIDERS: PCP Hospitalist; Visit Provider Hospitalist
DX: J98.4 Other disorders of lung (principal); R63.4 Abnormal weight loss; R91.1 Solitary pulmonary nodule; G47.33 Obstructive sleep apnea (adult) (pediatric); Z99.89 Dependence on other enabling machines and devices; J30.9 Allergic rhinitis, unspecified; R05.3 Chronic cough; C44.229 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 and external auricular canal
CPT/HCPCS: 99214; G2211

== ENCOUNTER → 2025-01-03 09:36 | Outpatient (BNVA) | payer MEDICARE, SELFPAY | PROVIDERS: PCP Hospitalist; Visit Provider Hospitalist | DX: R91.8 Other nonspecific abnormal finding of lung field (principal); G47.33 Obstructive sleep apnea (adult) (pediatric); J98.4 Other disorders of lung; R63.4 Abnormal weight loss; R91.1 Solitary pulmonary nodule; J30.9 Allergic rhinitis, unspecified; R05.3 Chronic cough; C44.229 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 and external auricular canal; J44.9 Chronic obstructive pulmonary disease, unspecified; Z99.89 Dependence on other enabling machines and devices | CPT/HCPCS: 99212 ==

== ENCOUNTER 2025-06-28 10:02 | Outpatient (AMB) | payer MEDICARE, SELFPAY ==
[2025-06-28 10:10] VITALS: BP 108/58; PULSE 68; TEMP 36.3; O2SAT 98; BMI 25.8
--- NOTE | 2025-06-28 10:10 | A.OFFVIS_ITS ---
Vital Signs 06/28/25 10:10 Height 5 ft 10 in Weight 180 lb BMI 25.8 BP 108/58 L Blood Pressure Location Rt brachial Position Sitting Pulse 68 Pulse Source Pulse Oximeter Temp 97.4 F Temp Source Temporal Artery Scan Pulse Oximetry (%) 98 Oxygen Delivery Method Room Air Intake Visit Reasons: Pulmonry Nodules Allergies doxycycline Allergy (Severe, Verified 01/03/25 09:55) nausea and vomiting Cipro Allergy (Severe, Uncoded 01/03/25 09:55) Diarrhea Penicillin Allergy (Severe, Uncoded 01/03/25 09:55) Rash HPI Comments Details: The patient is a 74-year-old gentleman known [place], chronic rhinitis in the in addition to pulmonary nodules. In regards of is CPAP the CPAP therapy has been affecting beneficial. However, he doesn't seem to be able to tolerated the whole night. We did request a download showing that he has apnea is improved dramatically with an AHI of less than 1. His average pressure is around 6 to 9. The therapy has been affecting beneficial. At this point will try to minimize the pressures to minimize difficulties tolerating it the whole night. I also think that he needs a new mask. I did recommend the [employer] fullface mask. In regards to the pulmonary nodules he is last CT scan of the chest was done at [facility] back in February 2019 demonstrating stable pulmonary nodules and interstitial changes when compared to 2016. He has been having issues with nasal congestion. He stop the Astelin nasal spray. He is continue the ipratropium. At this point he has nasal congestion is worse. 05/15/2020. The patient is here for pulmonary follow-up visit. Overall the patient is doing okay. He was having issues with fatigue and was noted to have some anemia. For the anemia workup included a CT scan of the chest. This time had at [facility] where again diff on the right lower lobe nodular density and also some lymphadenopathy. He is scheduled to undergo a repeat CT scan next week. In the office we did look at the CT scan from February 2019 from [facility] demonstrating similar findings with the parenchymal density, but, will see if there is any changes in the lymphadenopathy appreciated on the recent CT scan. In regards to his obstructive sleep apnea he still struggling with the CPAP. He tries to use it but then takes it off after 1-2 hours. We did switch his APAP to a CPAP pressure of 7 cm and a ramp before. Hopefully, he can tolerate that pressure knowing that a average pressure 6.5 decrease his AHI to 0.9 which is very reassuring. If he cannot tolerate that pressure he can decrease the pressure to 6 or call me and I can decrease the pressure for him. I did provide him with a different mask N30i that he can try as well and see if improves his overall tolerance of the PAP therapy. He also mentions that he had of bloody nose. He was evaluated by ENT. He did have increased vascularity and dryness. Hopefully now in the summertime should be doing okay. Will monitor closely may need of additional humidification or lubrication of the nasal passages for the winter months. He has been evaluated further by the oncologist and did undergo a repeat CT scan of the chest sometime in March 2020 demonstrating still the persistent abnormal finding in the right lower lobe. Has not appear to have changed. In addition to that on examination he continues to have this persistent 3/6 holosystolic murmur radiating to the apex suggestive of a mitral regurgitation murmur. He will be following up with primary care doctor soon, therefore, our request an echocardiogram for them to have available to review and can also reviewed myself as well. 11/15/2020 the patient is here for pulmonary follow-up visit. Overall he is doing very well. He lost significant amount of weight. Partly is because he may need lifestyle changes and will has been exercising more. He also has lost some appetite. He has had imaging studies of his chest, last September 2020 d emonstrating interval decrease in the nodular density of his lungs which is very reassuring consistent with the findings that he has had a previous CAT scans from [facility]. His main complaint is that he is having significant nasal congestion. He had also some issues with epistaxis. He has been using the fluticasone with no significant improvement. He has used the attributed nasal spray in the past and also the Astelin but no longer. The patient has not had any allergy testing either. He continues uses CPAP. The CPAP therapy continues to be affecting beneficial. Although the nasal congestion does bother him. He does uses CPAP for more than 4 hours a night. At this point will treat his nasal therapies with ipratropium and also the Astelin can stop the fluticasone. He should be able rinses nose prior to putting on CPAP. Will send him for blood work for further allergy testing. 05/21/2021 the patient is here for a pulmonary follow-up visit. He continues to do very well. Although he continues to lose weight. He states that he has not changed his eating habits and he good appetite. He has been more active walking the golf course more regularly about 5 times a week now he i s retired. He has had a workup from his primary care provider oncologist. Currently we did review his CT scan of the chest from [facility] that he had back in 2019 and did demonstrate a benign looking area in the esophagus. This point he is scheduled to undergo an endoscopy which will be helpful to further address that issue. In the meantime will follow his pulmonary nodules. They stable in the past with the weight loss I will request repeat scan this time. In addition to that he will be following up with endocrinology soon. He does describe in addition to weight loss loss and strength. From a nasal congestion standpoint used to using it 3 nasal sprays. Did do help although he prefers not to taking. I did recommend that if he has episodes of worsening nasal congestion he can also try Sudafed. In the meantime he continues uses CPAP. The CPAP therapy continues to be affecting beneficial. He is tolerating it well. He is wondering with weight loss if he still needs it. My recommendation is that if he is tolerating CPAP he to use continue using it. Hold off on sleep study at this time. Will have the patient return in the fall after her CT scan of the chest. 03/26/2023 the patient is here for pulmonary follow-up visit. The patient had a tough winter. He had a respiratory illness briefly that resulted in significant shortness of breath and cough. He did call the office and we did recommend he go to the his primary care since we did not have any availability. The patient currently is doing better. His main complaint always that he has significant nasal congestion and postnasal drip. Moderate to severe. For the most part thin liquid secretions. He did try the petroleum nasal spray with only partial resolution. The patient states that he has been using CPAP at nighttime. Although sometimes difficult for him to tolerated. We did download the machine on he does use it every night but seems to take it off in the middle the night. He does not understand or remember why. Most likely is because the pressure is going up. We did download the machine and appears that his AHI is well below 1 and his average pressure is around 6-7 cm water. Patient likely takes it off when he goes higher than that. In addition to this seems like his current CPAP is not working properly. HIs CPAP is older than 8 years. Will request for placement resmed machine at this time the patient will bring in his new machine when he comes into the next visit. 07/29/2023 the patient is here for pulmonary follow-up visit. Overall the patient has been doing well from a respiratory status. Although he says that he typically has a hard time breathing in the winter time. He has had that difficulty breathing for the last 2 years. This time will reassess him during the winter months. However he still struggling with CPAP mask. The mask is leaking out air into his and then last waking her up. Also the elevated pressures are bothering him he has to reset the machine. Otherwise CPAP therapy has been affecting beneficial. He does use an N20 mask. I do see with the escape air is coming out of the from the mask. I did provide him with an N30 I mask that allows on last the [place] of the air so hopefully his 1 be affected by a. He tolerated the mask well in the office. He stated I small mask very well. The pressures were adjusted as well from CPAP of 7 to a CPAP APAP 4-6. His AHI was down to 0. He as far as his chest x-ray back in March it was our read as no acute disease. Therefore no edema imaging is warranted. His breathing is okay right now. Will have him come back in the winter time with pulmonary function studies. 11/25/2023 the patient is here for a pulmonary follow-up visit. The patient has had a hard time since the fall. He developed COVID-19 and subsequently after that developed a worsening cough and shortness of breath. It was hard for him to go 1 flight of stairs. The patient still struggles with that. Because of the cough was so persistent he was not able to uses CPAP regularly. Therefore, he was not been using it. Did get a letter from alf that he had to use it otherwise will going to take it away. He did bring the machine in and we did download the data. The last 30 days he used it about 90% of the time in is average uses definitely more than 4 hours. His AHI is down to 0.3 and therefore the therapy has been affecting beneficial. I did call [facility] to make sure that the machine does not get taking away. In the meantime he did undergo pulmonary function studies. He appears to have restrictive ventilatory defect with a moderate diffusion impairment. This may have been the result of his underlying COVID infection back in the fall. Still the patient also has pulmonary nodules and has had some weight loss. Therefore to address the pulmonary nodules the restrictive lung disease and the weight loss will request a CT scan of the chest at this time. The patient is also concerned because his brother recently was diagnosed with stage IV lung cancer. 04/20/2024 the patient is here for a pulmonary follow-up visit. 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 It is very painful and swollen. He did have a biopsy. The patient has not been able to use his CPAP because of the cancer in his year and now is going to surgery. I did reach out to [facility] to explain to them that in view of the ear cancer and not able to wear the head gear will going to have to hold the PAP therapy at this time. He does have significant sleep apnea and he is struggling with daytime drowsiness now that he has not using it. His Milton score is elevated 11/24. Therefore he definitely needs to use the CPAP right now with his ear cancer and swelling around it in be impossible for him to wear the head gear. Does no other mask head gear that he can wear based on the location of the cancer. The patient also had a CT scan of the chest as a follow-up for his CT scan back in 12/29/2023 where showed a 7 mm pulmonary nodule in the right lower lobe that was increasing in size. He did have a recent CT scan we did review it although has not been officially read yet. It appears that the right lower lobe pulmonary nodule has increased further and size now measuring little bit more than 8 mm in size. Will wait for the final read but if the reading is consistent with the increase into 8 mm in size then we will request a PET scan to further address the possibility of hypermetabolic lesion and cancer. The patient will undergo surgery for his ear and skin cancer in the coming weeks. And then he will also need Plastic surgery. He has a lot going on as his brother recently also from stage IV renal cell carcinoma. After the final report of the CT scan call him and let him know either we are going to do a PET scan measuring 8 mm in size or larger or if it appears to be stable to the radiologist points review then will repeat the CT scan in 3 months. 07/26/2024 the patient is here for pulmonary follow-up visit. Since we last spoke he did have his surgery for his squamous cell carcinoma of the skin of the left ear. Ultimately had to undergo plastic surgery. It was a complex surgery lasting about 5 hours. They had a graft taken from his left thigh. The area still healing. His ear canals pretty close after the surgery. He did go to [place] to see if he need radiation but due to the fact that the recurrence rate would only be about 6-8% it was decided to hold off therapy. The patient has been doing well otherwise. He had a CT scan of the chest back in 04/28/2024. It. That the pulmonary nodule had not changed still 7 mm in size. Therefore we held on any additional testing at that point. More recently in May the patient did have a CT scan of the chest at [facility]. Based on the history the cancer and the size of the nodule which is intermediate in size he should get a CT scan 6 months from his last 1. Therefore will plan to do that at [facility] to try to maintain the CT scans closer to his oncologist. He was also on happy with the fact that it took so long for the CT scan to be read in the 1st place. The patient has not been able to use his CPAP because of his ear surgery. Therefore he is waking up tired. His Milton score is elevated 11/24. We did talk about alternatives to CPAP such as a mandibular advancement device. He will talk to his dentist regarding that. In meantime will try positional therapy. But, right now CPAP is not recommended based on his surgery. 01/03/2025 the patient is here for a pulmonary follow-up visit. 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 He is going to start immune therapy and subsequently after that will have surgery in [place]. He was told that this is potentially curative so he is reassured. In the meantime the found other little spots with squamous cell carcinoma and he will need to have surgery for those skin cancers as well. From a CPAP standpoint he has some difficulties tolerating the mask because of the CT skin cancer of his ear. Will did provide him with an AirTouch N30i mask medium that felt well and did not touch his ear. I am hoping that he tolerates this better. He is also complaining of a dry persistent cough. Moderate severity. He does have a postnasal drip consistent with upper airway cough syndrome. He has been using fluticasone and also ipratropium nasal spray. Can increase the ipratropium nasal spray for now. He is also having some wheezing which may be worsening due to the new therapy so therefore give him an inhaler. He can also use some codeine cough syrup that will help him with the cough and also provide some relief. 06/28/2025 the patient is here for a pulmonary follow-up visit. He is status post his immune therapy and also surgery for his head and neck cancer. Unfortunately he did have some positive lymph nodes. Therefore, he did receive radiation therapy. He has now completed that. Still having difficulty swallowing. In the meantime he is also feeling some difficulty with back pain and a lumbar disc disease. Currently using walker. Breathing lopez he seems to be doing okay although he has a congested cough. [id number] severity. Likely related to component of sinusitis. In addition to that he has been using his CPAP. He has been using nasal cradle. Although he is taking significant amount of air to his mouth. He does open his mouth significantly at nighttime. He is a mouth breather. Therefore, he has a fullface mask. I did have an F20 large air Touch foam mask. He did try he tolerated it well. Hopefully does better with this mask. He will continue with current respiratory therapy and he will start using the fullface mask. For follow-up in the springtime once he gets his PET scan he will get a some copies of the results in order to make sure get the results. [facility] Medical History (Updated 01/03/25 @ 14:08 by Grover Barbosa MD) Squamous cell skin cancer, earlobe Chronic restrictive lung disease Chronic cough Weight loss Splenomegaly Polycythemia Pulmonary nodule CHICO on CPAP Chronic allergic rhinitis Social History Patient Tobacco Use Status: Never used Tobacco Review of Systems Const Reports daytime sleepiness, Reports difficulty sleeping, Denies night sweats and Reports weight loss ENT Reports as per HPI, Denies change in voice, Reports dysphagia, Denies lip swelling, Reports nasal congestion, Reports nasal discharge, Reports neck pain, Reports odynophagia, Reports post nasal drip and Denies tongue swelling Card Denies chest pain and Reports dyspnea on exertion Resp Reports cough and Reports dyspnea on exertion GI Denies abdominal pain, Reports dysphagia and Reports odynophagia Musc Denies no additional complaints, Reports abnormal gait, Reports back pain, Reports neck pain, Reports radiating pain into limb and Reports tingling Skin/Breast Reports lesions Neuro Denies Neuro-related abnormal movements, Reports abnormal gait, Reports tingling and Reports paresthesias Psych Denies no additional complaints Asa/Lymph Denies easy bleeding and Denies lymphadenopathy Aller/Immun Denies lip swelling and Denies tongue swelling Physical Exam Vital Signs: Last Vital Signs Temp 97.4 F 06/28/25 10:10 Pulse 68 06/28/25 10:10 BP 108/58 L 06/28/25 10:10 Pulse Ox 98 06/28/25 10:10 Oxygen Delivery Method Room Air 06/28/25 10:10 BMI result Body Mass Index 25.8 Const General: alert HEENT Ears: external ear abnormal auricular tenderness, pain with movement of external ear and other and other (post op changes on the left side) Eyes Pupils: Equal, round and reactive pupils present Neck Neck: Yes submandibular swelling Chest Chest palpation & inspection: normal inspection of the chest Resp Effort & Inspection: normal respiratory effort Auscultation: wheezes and diminished lung sounds Cardio Rate: regular rate Rhythm: regular rhythm Heart sounds: S1 normal heart sound present and S2 normal heart sound present GI Palpation (GI): Soft to palpation and nontender Auscultation: normal bowel sounds Skin General skin exam: rashes and/or lesions noted Neuro Cranial nerves: Yes Equal, round and reactive pupils present Assessment & Plan Assessment & Plan (1) Chronic restrictive lung disease: Code(s): J98.4 - Other disorders of lung Category: Medical (2) Pulmonary nodule: Code(s): R91.1 - Solitary pulmonary nodule Category: Medical (3) CHICO on CPAP: Code(s): G47.33 - Obstructive sleep apnea (adult) (pediatric); Z99.89 - Dependence on other enabling machines and devices Category: Medical (4) Chronic allergic rhinitis: Code(s): J30.9 - Allergic rhinitis, unspecified Category: Medical (5) Chronic cough: Code(s): R05.3 - Chronic cough Category: Medical (6) Squamous cell skin cancer, earlobe: Comment: with local spread to the parotid gland and adjacent LNs Code(s): C44.221 - Squamous cell carcinoma of skin of unspecified ear and external auricular canal Category: Medical Qualifiers: Laterality: left Qualified Code(s): C44.229 - 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 and external auricular canal Plan APAP 4-6. Probided a F20 airtouch foam mask [employer] Continue nasal fluticasone nasal spray, ipratropium nasal spray cough medicine JEAN as needed CT chest/ PET at [facility] F/U 6-8 months Medications: New azithromycin 500 mg PO DAILY 5 tabs 0RF 5 days Coding Level of Care Code Est Pt Level 4 (12147) Complex EM visit Add On G2211 Diagnoses Chronic restrictive lung disease J98.4 Pulmonary nodule R91.1 CHICO on CPAP G47.33; Z99.89 Chronic allergic rhinitis J30.9 Chronic cough R05.3 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lobe C44.229 Laterality: left Time Spent (min) 17
--- OUTSIDE RECORDS SUMMARY | 2025-06-28 11:04 | XMS_ITS ---
Author Organization [facility] Address [address] [place] [id number] Phone Care Team Providers Care Stone Finisher Name Role Phone Mariely Vargas MD Primary Care Provider Lindsay Perales MD Unavailable Richard Eden DO, Justine Unavailable [phone] Maribel Nur MD, MPH Unavailable Kezia Webb MD Unavailable [phone] oLr Bal MD Unavailable [phone] Mynor Coats MD Unavailable Eliseo Rand RN Unavailable [email or web address] Grover Barbosa MD Unavailable [phone] Neville Torres MD Unavailable + [phone] Kya Diaz RN Unavailable [email or web address] Yvonne Lewis Unavailable [phone] Brennon Delcid MD, MPH Unavailable + Cathy Schmidt-Chris Unavailable + Active Problems Problem Noted Date Diagnosed Date 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 His history is significant for polycythemia vera and he has been maintained on hydroxyurea for many years by Juan Manuel Green and Dr. Chavarria. 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 I also reviewed that this may have happened, in part, from the immunosuppressive nature of hydroxyurea and recommended stopping it. He proceeded with neoadjuvant cemiplimab x 4 cycles. He had the first two cycles with me at [facility] and the 3rd and 4th cycles locally with Dr. Chavarria and Dr. Green. He describes that the lesions in his neck had a remarkable shrinkage. He underwent surgery with Maribel Nur on 03/29/2025 and pathology showed little treatment effect with > 80% viable tumor. There was metastatic carcinoma in 3/34 nodes. He is finishing adjuvant radiation today 06/14/2025. Dr. Chavarria continues to follow him for his CLL. His treatment has been complicated by a herniated disc which is causing him much distress. Transition into surveillance - PET-CT in 3 months. Will continue to check Lavern every 3 months which has converted to 0. Cutaneous squamous cell carcinoma, locally advanced S/p 4 cycles of neoadjuvant cemiplimab and surgery with 3/34 nodes involved - Finished adjuvant radiation 06/14/2025 - Lavern converted to 0 - checking every 3 months - PET-CT 3 months after finishing radiation - will schedule today PV and potentially CLL - Diagnosed by Hansel Green - followed by Dr. Green and Dr. Chavarria - Holding hydroxyuria - Referred to [facility] - Reviewing bone marrow biopsy results tomorrow Herniated disc L4-L5 - Oxycontin 20mg BID - Ongoing PT - Injection of steroids with no relief - Considering surgery - Saw physiatry and was rx'ed gabapentin 600mg QHS - MRI scheduled tomorrow closer to home Dry mouth likely from radiation No taste from radiation - monitor - wait for recovery Assessment & Plan (05/04/2025 8:46 PM EDT): Clay Barron is a 74 y.o. 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 His history is significant for polycythemia vera and he has been maintained on hydroxyurea for many years by Juan Manuel Green and Dr. Chavarria. 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 I also reviewed that this may have happened, in part, from the immunosuppressive nature of hydroxyurea and recommended stopping it. He proceeded with neoadjuvant cemiplimab x 4 cycles. He had the first two cycles with me at [facility] and the 3rd and 4th cycles locally with Dr. Chavarria and Dr. Green. He describes that the lesions in his neck had a remarkable shrinkage. He underwent surgery with Maribel Nur on 03/29/2025 and pathology showed little treatment effect with > 80% viable tumor. There was metastatic carcinoma in 3/34 nodes. He is starting adjuvant radiation. He recently saw Dr. Chavarria and had a bone marrow biopsy and is meeting tomorrow to discuss the results. He is very worried about these results. I briefly reviewed the findings of fibrosis in the marrow (which he says is not new) and the presence of CLL. We discussed that some of the treatments for his hematological condition may compromise his immune system and it will take careful coordination of all of his doctors. He may elect to also see a hvac design engineer at [facility] while he is here getting radiation. His treatment has been complicated by a herniated disc which is causing him much distress. Getting steroid injection tomorrow. May ultimately need ortho sturgery. Cutaneous squamous cell carcinoma, locally advanced S/p 4 cycles of neoadjuvant cemiplimab and surgery with 3/34 nodes involved - starting adjuvant radiation - lavern testing today - PET-CT 3 months after finishing radiation in July or August PV and potentially CLL - diagnosed by Hansel Green - followed by Dr. Green and Dr. Chavarria - holding hydroxyuria - consider referral to [facility] - reviewing bone marrow biopsy results tomorrow Herniated disc L4-L5 - Oxycontin 20mg BID - Ongoing PT - Injection of steroids tomorrow - Considering surgery - Saw physiatry and was rx'ed gabapentin 600mg QHS Assessment & Plan (01/31/2025 12:06 PM EDT): Clay Barron is a 74 y.o. 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 His history is significant for polycythemia vera and he has been maintained on hydroxyurea for many years by Juan Manuel Green and Dr. Chavarria. 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 I also reviewed that this may have happened, in part, from the immunosuppressive nature of hydroxyurea and recommended stopping it for 12 weeks while we treat him with neoadjuvant cemiplimab. He was agreeable to proceeding with neoadjuvant cemiplimab x 4 cycles followed by surgery and potentially more treatment after surgery depending on the results of the surgery. He has met with the surgical team and we discussed his case in our multidisciplinary tumor board. Clay is here today for neoadjuvant cemiplimab C2. He has some dizziness and some erythema on his eyelids but is otherwise feeling well and looking forward to his trip to [place]. Cutaneous squamous cell carcinoma, locally advanced - plan for neoadjuvant cemiplimab x 4 cycles - Today is cemiplimab C2 - consider CT neck/chest or at C3 - plan for 4 cycles and and surgery with Dr. Nur. PV: stable, monitoring counts - diagnosed by Hansel Green - followed by Dr. Green and Dr. 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 His history is significant for polycythemia vera and he has been maintained on hydroxyurea for many years by Juan Manuel Green and Dr. Chavarria. We reviewed the natural history of cutaneous squamous cell carcinoma and the likelihood that his current disease metastasized from his prior cutaneous squamous cell carcinoma of his ear. I also reviewed that this may have happened, in part, from the immunosuppressive nature of hydroxyurea and recommended stopping it for 12 weeks while we treat him. We reviewed his stage and options for treatment including neoadjuvant cemiplimab x 4 cycles followed by surgery and potentially more treatment after surgery. He has met with the surgical team and we discussed his case in our multidisciplinary tumor board. Clay is here today for neoadjuvant cemiplimab C2. Cutaneous squamous cell carcinoma, locally advanced - plan for neoadjuvant cemiplimab x 4 cycles - start cemiplimab C1 in one week, RTC every 3 weeks - consider CT neck/chest before C3 - plan for 4 cycles and and surgery with Dr. Nur. PV: stable, monitoring counts - diagnosed by Hansel Green - hold hydroxyurea x 12 weeks if counts are stable - recommend holding off on starting more therapy - can check labs more frequently. 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 Patient does not do SMBG. Random glucose 150-158 midday within last month. He is not on any antidiabetic medication. Weight is down 2 pounds. Increased stress related to ongoing cancer treatment. Decreased physical activity within the last few months but starting to play golf soon. We discussed possible endocrine complications of Cemiplimab including worsening of his diabetes control. -We discussed possible treatment options if blood sugars are rising. Patient prefers not to add a new medication to his list but rather work on his meal plan and increase physical activity which I encouraged. -Add A1c to next scheduled labs in a week -Call for lab result -Follow-up in 6 to 8 months Assessment & Plan (01/24/2024 4:59 PM EDT): Recent control is unknown since patient is not doing SMBG. Last A1c slightly higher at 6.8% in 08/2023 from 6.5% in 05/2023. Gained 2 pounds through the winter with less activity and having more sweets at night. We discussed adding metformin what he declined. He would like to work on his diet and increase his physical activity. Encouraged to do so. He is aware of the progressive nature of type 2 diabetes and increased risk of needing medication on the longer run. Plan to repeat labs soon and follow-up in 6 months. Assessment & Plan (06/03/2023 12:37 PM EDT): Control is unknown as the patient is not checking his glucose levels, historically control has been good based upon the patient's A1C. He is not using any medications to manage his glucose levels. Congratulated him on his efforts to maintain/improve his glucose control through physical activity. Continue to work on eating healthy and being active. To call or message with any issues or concerns. Up to date with ophtho. Labs ordered today Assessment & Plan (01/29/2023 4:09 PM EDT): Control remains good on lifestyle changes only. Last A1c 6.5% on 12/05/2022. Encouraged to continue to work on healthy meal plan and regular exercises. Would repeat A1c in 05/2023. If A1c over 7% we may consider trying metformin. He is up-to-date with eye exam, last done in 11/2022. Patient denies any diabetic retinopathy, report is not available. Recent fasting lipids are not available nor urine microalbumin to creatinine ratio. Blood pressure is at target. Follow-up in 6 months Acquired hypothyroidism 01/29/2023 Assessment & Plan (01/21/2025 10:14 AM EDT): Clinically and biochemically euthyroid. Last TSH 2.65 with normal free T4 at the end of December, before start of Cemiplimab while taking 25 mcg levothyroxine daily. No palpable thyroid abnormality. PET scan did not report uptake in the thyroid. -Discussed that Cemiplimab may alter thyroid function and more frequent monitoring of TFTs is advised. -Reviewed symptoms of hypo and hyperthyroidism, patient to call if concerned Assessment & Plan (01/24/2024 4:56 PM EDT): Has been taking the 25 mcg levothyroxine daily for 3 to 4 years. Clinically euthyroid. Last TSH high normal at 3.06 in 05/2023. Added TSH to next labs. Reviewed basic physiology of the thyroid gland, symptoms of under and over replacement, proper administration of levothyroxine. Assessment & Plan (06/03/2023 12:34 PM EDT): Will check levels to determine if medication adjustments are needed Assessment & Plan (01/29/2023 4:12 PM EDT): Has been treated with [address] Green for the last 3 years or so. Clinically euthyroid, TSH is not available, added to next labs. Reviewed basic physiology of the thyroid gland, symptoms of under and over replacement, proper administration of levothyroxine. Pulmonary embolus 07/29/2022 Polycythemia vera 05/26/2017 Malignant tumor of prostate 10/04/2012 Overview (12/30/2014): Malignant tumor of prostate Current Treatment and Therapy Plans CEMIPLIMAB* Plan Start Date:01/02/2025 Plan Provider:Libertad Ramos DO Linked Problems Squamous cell carcinoma of s kin Treatment Medications cemiplimab-rwlc IVPB Bag Past Treatment and Therapy Plans No past plan information found. Radiation Treatments * Course C1 05/10/2025 - 06/14/2025 Treatment Period Energy Fraction Dose Fractions Total Dose Plans Planned A1_LEarParoNk^A1_L Ear Parotid Neck 05/10/2025 - 06/14/2025 200 cGy 5,000 cGy Reference Points Delivered A_LEarParoNk 05/10/2025 - 06/14/2025 5,000 cGy Resolved Problems Problem Noted Date Diagnosed Date Resolved Date Gout 12/20/2024 12/20/2024 Disorder associated with typ e 2 diabetes mellitus 12/20/2024 12/20/2024 History of severe acute resp iratory syndrome coronavirus 2 (SARS-CoV-2) disease 12/20/202412/20 Nontoxic single thyroid nodule 12/20/2024 12/20/2024 Pain due to varicose veins o f both lower extremities 12/20/2024 12/20/2024 Rosacea 12/20/2024 12/20/2024 Stenosis of right carotid artery 12/20/2024 12/20/2024 Umbilical hernia 12/20/2024 12/20/2024 Impacted cerumen of left ear 09/15/2024 12/20/2024 Pruritus 08/02/2024 12/20/2024 Lesion of skin of left ear 04/08/2024 0 12/20/2024 Claudication of lower extremity 02/23/2024 12/20/2024 Venous insufficiency of left leg 02/23/2024 12/20/2024 Thyroid nodule 01/29/2023 12/20/2024 Assessment & Plan (01/24/2024 4:58 PM EDT): Incidentally found right 1.5 cm nodule on carotid ultrasound in early 2022. Patient had FNA of this nodule on 01/08/2023 at [facility] [place] and the cytology was insufficient for diagnosis. Repeat FNA was done on 01/27/2023, cytology was benign. Patient has no history of radiation exposure to the head and neck and no family history of thyroid cancer. Plan to repeat ultrasound in 01/2025 Assessment & Plan (01/29/2023 4:14 PM EDT): Incidentally found right 1.5 cm nodule on the carotid ultrasound earlier this year. Patient had FNA of this nodule on 01/08/2023 at [facility] [place] [facility] and the cytology was insufficient for diagnosis. Repeat FNA was done on 01/27/2023, cytology report is pending. Patient has no history of radiation exposure to the head and neck and no family history of thyroid cancer. We discussed that the risk of thyroid cancer in the nodule is about 5 to 10%. I will request the second cytology report and will advise on further management of this nodule. If the FNA is benign we will repeat the ultrasound in 1 year Splenomegaly 10/28/2022 12/20/2024 Deep venous thrombosis 07/29/202212/20 Overview (12/20/2024): 1998 at time of DX PV Myelofibrosis 07/29/2022 12/20/2024 Post-phlebitic syndrome 07/29/202212/10 Thrombocytosis 06/26/2020 12/20/2024 Lung nodule 05/22/2020 12/20/2024 Epistaxis 04/04/2020 12/20/2024 Overview (12/20/2024): Epistaxis; Note: Date Diagnosed: 04/04/2020 9:58 AM (R04.0) Sensorineural hearing loss ( SNHL) of both ears 06/11/2018 12/20/2024 Overview (12/20/2024): Sensorineural hearing loss, bilateral; Note: Date Diagnosed: 06/11/2018 10:24 AM (H90.3) Tinnitus of left ear 06/11/2018 025 Overview (12/20/2024): Tinnitus, left ear; Note: Date Diagnosed: 06/11/2018 12:44 PM (H93.12) Hypertrophy of tonsils 06/01/201812/20 Overview (12/20/2024): Hypertrophy of tonsils; Note: Date Diagnosed: 06/01/2018 12:08 PM (J35.1) Chronic rhinitis 12/29/2017 12/20/2024 Irritable bowel syndrome with diarrhea 12/29/2017 12/20/2024 Kidney disease 12/29/2017 12/20/2024 Nephrolithiasis 12/29/2017 12/20/2024 Personal history of malignan t neoplasm of prostate 12/29/2017 12/20/2024 Pulmonary nodules 12/29/2017 12/20/2024 Skin cancer of nose 12/29/2017 12/20/19 Overview (12/20/2024): Type of cancer not indicated, removed 09/2013 Chronic gout 05/26/2017 12/20/2024 Hyperglycemia 05/26/2017 12/20/2024 Obstructive sleep apnea syndrome 05/26/2017 12/20/2024 Overview (12/20/2024): Obstructive sleep apnea (adult) (pediatric); Note: Date Diagnosed: 04/04/2020 9:58 AM (G47.33) Acquired hypothyroidism 05/26/201712/10
--- OUTSIDE RECORDS SUMMARY | 2025-06-28 11:04 | XMS_ITS ---
Author Name Mynor Coats Address Unknown Organization [facility] Care Team Providers Care Dining Manager Name Role Phone Unavailable Primary Care Physician Unavailab le History Of Present Illness 1. This is a 74 year old male who is an established patient who is being seen for a chief complaintof rash. They are coming in today as a work-in. Location: mid posterior neckRash Type: bumpy, itchy, and redDuration: 2 weeksPertinent Details: no household contacts with similar rash, no new medications, no new personal care products, and no recent infectionsCurrent Medications: no treatmentAdditional History: Patient states rash occurred ~ 2 weeks ago and has slowly started to move up towards the scalp. 2. This is a 74 year old male who is an established patient who is being seen for an evaluation of skin lesions.Location: body throughoutQuality: asymptomaticSeverity: moderateModifying Factors: Nothing makes the lesion better or worseDuration: yearsHistory of Previous Treatments: has not been treat edPertinent History: actinic keratoses, basal cell skin cancer , and squamous cell skin cancer Pertinent Negatives: no family history of melanomaAdditional Visit Reasons: surveillance against skin cancer recurrences Allergies, Adverse Reactions, Alerts Substance RxNorm Reaction(s) Severity Status Start Da te Cipro 132775 unspecified active Penicillins unspecified active doxycycline unspecified active Medications Medication Generic Name RxNorm Strength Strength Unit Route Dose Dose Form Frequency Date Started Date Ended Status Indication Sig ciclopirox ciclopir ox 294077 0.77 % Topica l apply thin layer cream PRN 02/18/20 24 active Appl y bid to leonel al rash on R butt ock unti l pa r. gentamicin gentamic in 155250 0.1 % Topica l ointm ent 02/18/20 24 suspend ed Appl y TID to left ear foll icul itis ketoconazol e ketocona zole 558306 2 % Topica l apply thin layer cream QD 03/27/20 22 active Appl y very spar ingl y bid to allison katelin area prn mometasone mometaso [place] 451534 0.1 % Topica l cream 08/27/20 23 suspend ed Appl y BID to rash on ears , neck , and butt ocks . nystatin nystatin 774832 100,000 unit/gram Topica l powde r 11/23/19 20 suspend ed Appl y QAM to diap er area . sulfacetami de sodium (acne) sulfacet amide sodium (acne) 7970696 10 % Topica l apply thin layer suspe nsion QHS 05/14/20 20 active Appl y qhs to face for Elsy cea Adult Low Dose Aspirin aspirin 81 mg Oral 1 table t,del ayed relea se (/E Chris) QD active Bactrim sulfamet hoxazole -trimeth oprim 400-80 mg Oral table t suspend ed cilostazol 804328 50 mg Oral table t suspend ed folic acid 1 mg Oral 1 table t QD active hydroxyurea 500 mg Oral caps u le suspend ed hydroxyzine pamoate hydroxyz ine pamoate 25 mg Oral 1 capsu le QD active levothyroxi ne 25 mcg Oral 1 table t QD active methenamine hippurate 1 gram Oral table t suspend ed minocycline minocycl ine 862862 50 mg Oral 1 capsu le M,W,F 10/27/20 24 active Take one cap ever y othe r day with opti on to decr ease to one cap Mond ay, Wedn esda y and Frid ay am in Dec, 2024 if doin g well . omeprazole omeprazo le 10 mg Oral 1 capsu le,de layed relea se (enthumaira warner) QD active sulfamethox azole-trime thoprim 834047 400-80 mg Oral table t suspend ed Problems Problem Code Type Status Date of Diagnosis Da te of Resolution History of malignant neoplasm of skin (situation) 981588439(SN OMED) Diagnosis active 06/26/2025 Actinic keratosis (disorder) (SN OMED) Diagnosis active 06/26/2025 History of malignant neoplasm of skin (situation) 292961757(SN OMED) Diagnosis active 03/20/2025 Actinic keratosis (disorder) (SN OMED) Diagnosis active 03/20/2025 Rosacea (disorder) 197408281(SN OMED) Diagnosis active 03/20/2025 Tinea pedis (disorder) 8819862(SNOM ED) Diagnosis active 03/20/2025 History of malignant neoplasm of skin (situation) 882412455(SN OMED) Diagnosis active 12/29/2024 Actinic keratosis (disorder) (SN OMED) Diagnosis active 12/29/2024 Rosacea (disorder) 866255007(SN OMED) Diagnosis active 12/29/2024 Actinic keratosis (disorder) (SN OMED) Diagnosis active 10/27/2024 History of malignant neoplasm of skin (situation) 337796718(SN OMED) Diagnosis active 10/27/2024 Neoplasm of uncertain behavior of skin (disorder) 44050825(SNO MED) Diagnosis active 10/27/2024 Actinic keratosis (disorder) (SN OMED) Diagnosis active 10/27/2024 Rosacea (disorder) 059753735(SN OMED) Diagnosis active 10/27/2024 Actinic keratosis (disorder) (SN OMED) Diagnosis active 09/21/2024 History of malignant neoplasm of skin (situation) 140823034(SN OMED) Diagnosis active 09/08/2024 Actinic keratosis (disorder) (SN OMED) Diagnosis active 09/08/2024 Rosacea (disorder) 932451871(SN OMED) Diagnosis active 09/08/2024 Melanocytic nevus of trunk (disorder) 890657562(SN OMED) Diagnosis active 09/08/2024 Seborrheic keratosis (disorder) 239149873(SN OMED) Diagnosis active 09/08/2024 Varicose veins of lower extremity (disorder) 60013562(SNO MED) Diagnosis active 09/08/2024 History of malignant neoplasm of skin (situation) 009788684(SN OMED) Diagnosis active 08/04/2024 Actinic keratosis (disorder) (SN OMED) Diagnosis active 08/04/2024 Rosacea (disorder) 100968040(SN OMED) Diagnosis active 08/04/2024 Melanocytic nevus of trunk (disorder) 781895699(SN OMED) Diagnosis active 08/04/2024 Seborrheic keratosis (disorder) 771205825(SN OMED) Diagnosis active 08/04/2024 Itching of skin (finding) 920406280(SN OMED) Diagnosis active 08/04/2024 Primary focal hyperhidrosis (disorder) 504778591(SN OMED) Diagnosis active 08/04/2024 Varicose veins of lower extremity (disorder) 01179058(SNO MED) Diagnosis active 08/04/2024 Squamous cell carcinoma of skin (disorder) 924442467(SN OMED) Diagnosis active 06/09/2024 Actinic keratosis (disorder) (SN OMED) Diagnosis active 06/09/2024 Squamous cell carcinoma of skin of ear (disorder) 451611285(SN OMED) Diagnosis active 05/18/2024 Squamous cell carcinoma of skin of ear (disorder) 808233795(SN OMED) Diagnosis active 05/10/2024 Actinic keratosis (disorder) (SN OMED) Diagnosis active 05/10/2024 Localized infection of skin AND/OR subcutaneous tissue (disorder) 609552537(SN OMED) Diagnosis active 03/17/2024 Neoplasm of uncertain behavior of skin (disorder) 69428727(SNO MED) Diagnosis active 03/17/2024 Otitis externa (disorder) 3445515(SNOM ED) Diagnosis active 03/03/2024 Basal cell carcinoma of lower extremity (disorder) 229052984(SN OMED) Diagnosis active 03/03/2024 Actinic keratosis (disorder) (SN OMED) Diagnosis active 03/03/2024 Seborrheic dermatitis (disorder) 48823408(SNO MED) Diagnosis active 03/03/2024 Rosacea (disorder) 302109173(SN OMED) Diagnosis active 03/03/2024 Tinea corporis (disorder) 91755388(SNO MED) Diagnosis active 03/03/2024 Otitis externa (disorder) 3238917(SNOM ED) Diagnosis active 02/18/2024 Basal cell carcinoma of lower extremity (disorder) 064047616(SN OMED) Diagnosis active 02/18/2024 Actinic keratosis (disorder) (SN OMED) Diagnosis active 02/18/2024 Seborrheic dermatitis (disorder) 51318574(SNO MED) Diagnosis active 02/18/2024 Rosacea (disorder) 742731569(SN OMED) Diagnosis active 02/18/2024 History of malignant neoplasm of skin (situation) 539904906(SN OMED) Diagnosis active 01/21/2024 Basal cell carcinoma of lower extremity (disorder) 390189020(SN OMED) Diagnosis active 01/21/2024 Seborrheic dermatitis (disorder) 98261953(SNO MED) Diagnosis active 01/21/2024 Actinic keratosis (disorder) (SN OMED) Diagnosis active 01/21/2024 Rosacea (disorder) 553813615(SN OMED) Diagnosis active 01/21/2024 Furuncle (disorder) 553385353(SN OMED) Diagnosis active 01/21/2024 Furuncle of neck (disorder) 50648484(SNO MED) Diagnosis active 01/21/2024 Furuncle of face (disorder) 55672564(SNO MED) Diagnosis active 01/21/2024 Seborrheic keratosis (disorder) 358286621(SN OMED) Diagnosis active 01/21/2024 Tinea pedis (disorder) 3454249(SNOM ED) Diagnosis active 01/21/2024 Actinic keratosis (disorder) (SN OMED) Diagnosis active 12/15/2023 Furuncle (disorder) 486152381(SN OMED) Diagnosis active 10/22/2023 Furuncle (disorder) 529028494(SN OMED) Diagnosis active 10/22/2023 Furuncle of neck (disorder) 50515570(SNO MED) Diagnosis active 10/22/2023 Furuncle of face (disorder) 58327865(SNO MED) Diagnosis active 10/22/2023 Seborrheic dermatitis (disorder) 61823891(SNO MED) Diagnosis active 10/22/2023 Actinic keratosis (disorder) (SN OMED) Diagnosis active 10/22/2023 Rosacea (disorder) 097152745(SN OMED) Diagnosis active 10/22/2023 Neoplasm of uncertain behavior of skin (disorder) 47789241(SNO MED) Diagnosis active 10/22/2023 Furuncle of neck (disorder) 58924250(SNO MED) Diagnosis active 10/05/2023 Furuncle of face (disorder) 02913975(SNO MED) Diagnosis active 10/05/2023 Furuncle (disorder) 010701084(SN OMED) Diagnosis active 10/05/2023 Seborrheic dermatitis (disorder) 21586385(SNO MED) Diagnosis active 10/05/2023 Actinic keratosis (disorder) (SN OMED) Diagnosis active 10/05/2023 Rosacea (disorder) 996565755(SN OMED) Diagnosis active 10/05/2023 Seborrheic dermatitis (disorder) 77052580(SNO MED) Diagnosis active 08/27/2023 Actinic keratosis (disorder) (SN OMED) Diagnosis active 08/27/2023 Rosacea (disorder) 950937854(SN OMED) Diagnosis active 08/27/2023 Tinea pedis (disorder) 2934869(SNOM ED) Diagnosis active 08/27/2023 Asteatosis cutis (disorder) 35522316(SNO MED) Diagnosis active 08/27/2023 Melanocytic nevus of trunk (disorder) 758985380(SN OMED) Diagnosis active 04/27/2023 Actinic keratosis (disorder) (SN OMED) Diagnosis active 04/27/2023 Rosacea (disorder) 103318114(SN OMED) Diagnosis active 04/27/2023 Seborrheic dermatitis (disorder) 81993733(SNO MED) Diagnosis active 04/27/2023 Seborrheic keratosis (disorder) 452387866(SN OMED) Diagnosis active 04/27/2023 Rosacea (disorder) 153717883(SN OMED) Diagnosis active 12/22/2022 Seborrheic dermatitis (disorder) 74954895(SNO MED) Diagnosis active 12/22/2022 Actinic keratosis (disorder) (SN OMED) Diagnosis active 12/22/2022 Tinea pedis (disorder) 7370410(SNOM ED) Diagnosis active 12/22/2022 Rosacea (disorder) 179746604(SN OMED) Diagnosis active 11/26/2022 Seborrheic dermatitis (disorder) 95352703(SNO MED) Diagnosis active 11/26/2022 Actinic keratosis (disorder) (SN OMED) Diagnosis active 11/26/2022 Tinea pedis (disorder) 6185782(SNOM ED) Diagnosis active 11/26/2022 Epidermoid cyst of skin (disorder) 206121910(SN OMED) Diagnosis active 11/26/2022 History of malignant neoplasm of skin (situation) 966630969(SN OMED) Diagnosis active 07/31/2022 Actinic keratosis (disorder) (SN OMED) Diagnosis active 07/31/2022 Candidiasis (disorder) 44122792(SNO MED) Diagnosis active 07/31/2022 Rosacea (disorder) 234578748(SN OMED) Diagnosis active 07/31/2022 Melanocytic nevus of trunk (disorder) 121740538(SN OMED) Diagnosis active 07/31/2022 Seborrheic keratosis (disorder) 762154239(SN OMED) Diagnosis active 07/31/2022 Varicose veins of lower extremity (disorder) 89582523(SNO MED) Diagnosis active 07/31/2022 History of malignant neoplasm of skin (situation) 209078339(SN OMED) Diagnosis active 03/27/2022 Actinic keratosis (disorder) 901222256(SN OMED) Diagnosis active 03/27/2022 Candidiasis (disorder) 25544695(SNO MED) Diagnosis active 03/27/2022 Rosacea (disorder) 617058944(SN OMED) Diagnosis active 03/27/2022 Melanocytic nevus of trunk (disorder) 515756561(SN OMED) Diagnosis active 03/27/2022 Seborrheic keratosis (disorder) 040076343(SN OMED) Diagnosis active 03/27/2022 Varicose veins of lower extremity (disorder) 40259746(SNO MED) Diagnosis active 03/27/2022 Basal cell carcinoma of skin (disorder) 876478523(SN OMED) Diagnosis active 11/21/2021 History of malignant neoplasm of skin (situation) 157197479(SN OMED) Diagnosis active 11/21/2021 Tinea corporis (disorder) 96950284(SNO MED) Diagnosis active 11/21/2021 Actinic keratosis (disorder) (SN OMED) Diagnosis active 11/21/2021 Rosacea (disorder) 162786875(SN OMED) Diagnosis active 11/21/2021 Melanocytic nevus of trunk (disorder) 962980753(SN OMED) Diagnosis active 11/21/2021 Seborrheic keratosis (disorder) 862399850(SN OMED) Diagnosis active 11/21/2021 Disorder of skin (disorder) 27395451(SNO MED) Diagnosis active 11/21/2021 Candidiasis (disorder) 25524044(SNO MED) Diagnosis active 11/21/2021 Varicose veins of lower extremity (disorder) 27080613(SNO MED) Diagnosis active 11/21/2021 History of malignant neoplasm of skin (situation) 464938978(SN OMED) Diagnosis active 03/21/2021 Basal cell carcinoma of skin (disorder) 817995940(SN OMED) Diagnosis active 03/21/2021 Actinic keratosis (disorder) (SN OMED) Diagnosis active 03/21/2021 Rosacea (disorder) 380336565(SN OMED) Diagnosis active 03/21/2021 Tinea corporis (disorder) 94073465(SNO MED) Diagnosis active 03/21/2021 Melanocytic nevus of trunk (disorder) 136892732(SN OMED) Diagnosis active 03/21/2021 Seborrheic keratosis (disorder) 233184216(SN OMED) Diagnosis active 03/21/2021 Disorder of skin (disorder) 44353538(SNO MED) Diagnosis active 03/21/2021 Actinic keratosis L57.0(ICD-10 ) Diagnosis active 01/07/2021 Actinic keratosis L57.0(ICD-10 ) Diagnosis active 12/04/2020 Personal history of other malignant neoplasm of skin Z85.828(ICD- 10) Diagnosis active 11/15/2020 Actinic keratosis L57.0(ICD-10 ) Diagnosis active 11/15/2020 Other rosacea L71.8(ICD-10 ) Diagnosis active 11/15/2020 Tinea corporis B35.4(ICD-10 ) Diagnosis active 11/15/2020 Melanocytic nevi of trunk D22.5(ICD-10 ) Diagnosis active 11/15/2020 Other seborrheic keratosis L82.1(ICD-10 ) Diagnosis active 11/15/2020 Other specified epidermal thickening L85.8(ICD-10 ) Diagnosis active 11/15/2020 Xerosis cutis L85.3(ICD-10 ) Diagnosis active 11/15/2020 Personal history of other malignant neoplasm of skin Z85.828(ICD- 10) Diagnosis active 08/09/2020 Actinic keratosis L57.0(ICD-10 ) Diagnosis active 08/09/2020 Other rosacea L71.8(ICD-10 ) Diagnosis active 08/09/2020 Tinea corporis B35.4(ICD-10 ) Diagnosis active 08/09/2020 Melanocytic nevi of trunk D22.5(ICD-10 ) Diagnosis active 08/09/2020 Other seborrheic keratosis L82.1(ICD-10 ) Diagnosis active 08/09/2020 Other specified epidermal thickening L85.8(ICD-10 ) Diagnosis active 08/09/2020 Furuncle of face L02.02(ICD-1 0) Diagnosis active 05/02/2020 Furuncle of head [any part, except face] L02.821(ICD- 10) Diagnosis active 05/02/2020 Other rosacea L71.8(ICD-10 ) Diagnosis active 05/02/2020 Personal history of other malignant neoplasm of skin Z85.828(ICD- 10) Diagnosis active 05/02/2020 Tinea corporis B35.4(ICD-10 ) Diagnosis active 05/02/2020 Actinic keratosis L57.0(ICD-10 ) Diagnosis active 05/02/2020 Neoplasm of uncertain behavior of skin D48.5(ICD-10 ) Diagnosis active 03/08/2020 Encounter for surgical aftercare following surgery on the skin and subcutaneous tissue Z48.817(ICD- 10) Diagnosis active 11/04/2019 Infection following a procedure, unspecified, initial encounter T81.40XA(ICD -10) Diagnosis active 11/03/2019 Squamous cell carcinoma of skin of left upper limb, including shoulder C44.629(ICD- 10) Diagnosis active 11/03/2019 Actinic keratosis L57.0(ICD-10 ) Diagnosis active 11/03/2019 Tinea corporis B35.4(ICD-10 ) Diagnosis active 11/03/2019 Other rosacea L71.8(ICD-10 ) Diagnosis active 11/03/2019 Encounter for surgical aftercare following surgery on the skin and subcutaneous tissue Z48.817(ICD- 10) Diagnosis active 10/28/2019 Basal cell carcinoma of skin of other parts of face C44.319(ICD- 10) Diagnosis active 10/21/2019 Neoplasm of uncertain behavior of skin (disorder) 19291200(SNO MED) Diagnosis active 06/16/2019 Tinea corporis (disorder) 86691763(SNO MED) Diagnosis active 10/21/2018 Skin striae (disorder) 236589185(SN OMED) Diagnosis active 08/12/2018 Tinea corporis (disorder) 38831090(SNO MED) Diagnosis active 08/12/2018 Actinic keratosis (disorder) (SN OMED) Diagnosis active 02/11/2018 Herpesviral vesicular dermatitis (disorder) 796151289(SN OMED) Diagnosis active 01/26/2018 Actinic keratosis (disorder) (SN OMED) Diagnosis active 08/13/2017 Actinic keratosis (disorder) (SN OMED) Diagnosis active 04/02/2017 Senile hyperkeratosis (disorder) 244229212(SN OMED) Diagnosis active 09/29/2016 Actinic keratosis (disorder) (SN OMED) Diagnosis active 12/13/2015 Rosacea (disorder) 911403234(SN OMED) Diagnosis active 06/26/2015 Rosacea (disorder) 576681137(SN OMED) Diagnosis active 05/15/2015 Actinic keratosis (disorder) (SN OMED) Diagnosis active 12/12/2014 Actinic keratosis (disorder) (SN OMED) Diagnosis active 03/21/2014 History of clinical finding in subject (situation) 666983882(SN OMED) Problem active Actinic keratosis (disorder) (SN OMED) Problem active Malignant neoplasm of prostate (disorder) 915856637(SN OMED) Problem active Basal cell carcinoma of skin (disorder) 562089039(SN OMED) Problem active Squamous cell carcinoma (disorder) 666756703(SN OMED) Problem active Anemia (disorder) 748663801(SN OMED) Problem active History of urinary tract infection (situation) 353443264925 7(SNOMED) Problem active Hypothyroidism (disorder) 62167360(SNO MED) Problem active Polycythemia vera (morphologic abnormality) 956491026(SN OMED) Problem active Radiation therapy care (regime/therapy) 454164979(SN OMED) Problem active Results No data Encounters Service provided at [facility], [address] [place] [address], [address], [place], [place] [id number]. Office phonenumber is [phone]. Office fax number is [phone]. Encounter Diagnosis Location Date / Time Type History of squamous cell car cinoma (Z85.828)Actinic Keratoses (L57.0) [facility] 06/26/2025 19:00:00 [facility] [id number] Reason For Referral I saw Clay Barron in the office on June 26, 2025.Below is a summary of our visit:History of squamous cell carcinoma: healing L ear has progressed nicely and completely epithelialized with significant anatomic distortion and currently has developed what appears to be an sub-acute radiation dermatitis. distributed on the left central lateral neck and left inferior occipital scalp.Plan: Diagnosis Comment and Counseling.Actinic Keratoses: 5-10 mm red scaly macules distributed on the right central malar cheek and left central malar cheek.Plan: Counseling.My impression and plan was the followin.History of squamous cell carcinoma - 06/26/25: he just completed a five day per week times five weekcourse of radiation to the left ear and left side of his neck, which he said, was one of the worst experiences of his life. He has had extreme fatigue, loss of taste, and difficulty swallowing. 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 This was stopped at the time of the rash and he has been cleansing with proprietary soap and using Vaseline. Exam reveals a moderate degree of rednesswith dryness and some follicular???s on the left side of his neck and left of the neck. No evidenceof post or secondary infection. His ear does not appear to be involved. I suggested he cleanse with Cerave cream cleanser, and apply Cerave moisturizer in the morning and to resume TAC cream in the evening. He will call me if not improved after several weeks. 03/20/25: He came in today as a tuck in concerned about possible infection behind R ear having noted pain and fouls smelling discharge from behind left ear lobe which has since resolved. Exam is negative today for palpable nodes, infection, discharge etc and no tender spots. He is due to have extensive neck surgery at [facility]/ by Dr. Baig next week of L parotid area and to remove many nodes. He reports doing very well on immunotherapy. Nopalpable nodes today. 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 PET and CT scans negative for distant metastases. He is scheduled to begin immunotherapy q 3wks to be f/b surgery and possibly XRT. 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 Furthermore, at /derm was noted to have several new SCC on BX R upper [place] and R jehovah's witness and to have MOHS at as well. Will f/u with me when releases him and I have requested they send records. 10/27/24: L ear healing verywell. No longer symptomatic. Saw Dr. Adams who reports healing is good and recommended to have periodic CAT scans. No regional nodes. 09/08/24: Reports L parietal scalp numbness which his surgeon hasadvised likely to take many months to resolve. He also went to and no further intervention recommended at this time. No regional or peripheral lymphadenopathy. Pt reports decrease hearing L ear which may be the result of narrowing of the external auditory canal and will see Dr. Adams for further evaluation.Counseling2.Actinic KeratosesCounseling Procedures Procedure Date Documentation of current medications (pr ocedure) 06/26/2025 12:00 am UT Photodynamic therapy of skin (procedure) 10/27/2024 12:00 am UTC Destruction of premalignant skin lesion (procedure) 10/27/2024 12:00 am UTC Photodynamic therapy of skin (procedure) 09/21/2024 12:00 am UTC Mohs surgery (procedure) 05/18/2024 12:0 0 am UTC Shave excision of skin lesion (procedure ) 01/21/2024 12:00 am UTC Photodynamic therapy of skin (procedure) 12/15/2023 12:00 am UTC Cryotherapy of skin lesion with liquid n itrogen (procedure) 10/22/2023 12:00 am UTC Shave biopsy (procedure) 04/27/2023 12:0 0 am UTC Cryotherapy of skin lesion with liquid n itrogen (procedure) 04/27/2023 12:00 am UTC Cryotherapy of skin lesion with liquid n itrogen (procedure) 12/22/2022 12:00 am UTC Cryotherapy of skin lesion with liquid n itrogen (procedure) 11/26/2022 12:00 am UTC Cryotherapy of skin lesion with liquid n itrogen (procedure) 07/31/2022 12:00 am UTC Cryotherapy of skin lesion with liquid n itrogen (procedure) 03/27/2022 12:00 am UTC Cryotherapy of skin lesion with liquid n itrogen (procedure) 11/21/2021 12:00 am UTC Cryotherapy of skin lesion with liquid n itrogen (procedure) 03/21/2021 12:00 am UTC Cryotherapy of skin lesion with liquid n itrogen (procedure) 11/15/2020 12:00 am UTC Excision of basal cell carcinoma (proced ure) Surgical biopsy of skin (procedure) Excision of squamous cell carcinoma (pro cedure) Excision of basal cell carcinoma (proced ure) Surgical biopsy of skin (procedure) Excision of squamous cell carcinoma (pro cedure) Surgical biopsy of skin (procedure) Excision of squamous cell carcinoma (pro cedure) Excision of basal cell carcinoma (proced ure) Excision of basal cell carcinoma (proced ure) Surgical biopsy of skin (procedure) Excision of squamous cell carcinoma (pro cedure) Excision of squamous cell carcinoma (pro cedure) Excision of basal cell carcinoma (proced ure) Surgical biopsy of skin (procedure) Excision of squamous cell carcinoma (pro cedure) Excision of basal cell carcinoma (proced ure) Surgical biopsy of skin (procedure) Excision of basal cell carcinoma (proced ure) Excision of squamous cell carcinoma (pro cedure) Surgical biopsy of skin (procedure) Surgical biopsy of skin (procedure) Excision of squamous cell carcinoma (pro cedure) Excision of basal cell carcinoma (proced ure) Excision of basal cell carcinoma (proced ure) Excision of squamous cell carcinoma (pro cedure) Surgical biopsy of skin (procedure) Surgical biopsy of skin (procedure) Excision of basal cell carcinoma (proced ure) Excision of squamous cell carcinoma (pro cedure) Excision of squamous cell carcinoma (pro cedure) Surgical biopsy of skin (procedure) Excision of basal cell carcinoma (proced ure) Excision of basal cell carcinoma (proced ure) Excision of squamous cell carcinoma (pro cedure) Surgical biopsy of skin (procedure) Excision of basal cell carcinoma (proced ure) Excision of squamous cell carcinoma (pro cedure) Surgical biopsy of skin (procedure) Excision of basal cell carcinoma (proced ure) Excision of squamous cell carcinoma (pro cedure) Surgical biopsy of skin (procedure) Excision of basal cell carcinoma (proced ure) Excision of squamous cell carcinoma (pro cedure) Surgical biopsy of skin (procedure) Surgical biopsy of skin (procedure) Excision of basal cell carcinoma (proced ure) Excision of squamous cell carcinoma (pro cedure) Excision of basal cell carcinoma (proced ure) Excision of squamous cell carcinoma (pro cedure) Surgical biopsy of skin (procedure) Excision of squamous cell carcinoma (pro cedure) Surgical biopsy of skin (procedure) Excision of basal cell carcinoma (proced ure) Excision of squamous cell carcinoma (pro cedure) Surgical biopsy of skin (procedure) Excision of basal cell carcinoma (proced ure) Excision of squamous cell carcinoma (pro cedure) Excision of basal cell carcinoma (proced ure) Surgical biopsy of skin (procedure) Excision of squamous cell carcinoma (pro cedure) Excision of basal cell carcinoma (proced ure) Surgical biopsy of skin (procedure) Excision of basal cell carcinoma (proced ure) Excision of squamous cell carcinoma (pro cedure) Surgical biopsy of skin (procedure) Excision of squamous cell carcinoma (pro cedure) Surgical biopsy of skin (procedure) Excision of basal cell carcinoma (proced ure) Excision of squamous cell carcinoma (pro cedure) Excision of basal cell carcinoma (proced ure) Surgical biopsy of skin (procedure) Excision of basal cell carcinoma (proced ure) Excision of squamous cell carcinoma (pro cedure) Surgical biopsy of skin (procedure) Excision of squamous cell carcinoma (pro cedure) Surgical biopsy of skin (procedure) Excision of basal cell carcinoma (proced ure) Excision of basal cell carcinoma (proced ure) Excision of squamous cell carcinoma (pro cedure) Surgical biopsy of skin (procedure) Surgical biopsy of skin (procedure) Excision of basal cell carcinoma (proced ure) Excision of squamous cell carcinoma (pro cedure) Excision of basal cell carcinoma (proced ure) Excision of squamous cell carcinoma (pro cedure) Surgical biopsy of skin (procedure) Excision of basal cell carcinoma (proced ure) Excision of squamous cell carcinoma (pro cedure) Surgical biopsy of skin (procedure) Excision of basal cell carcinoma (proced ure) Excision of squamous cell carcinoma (pro cedure) Surgical biopsy of skin (procedure) Surgical biopsy of skin (procedure) Excision of squamous cell carcinoma (pro cedure) Excision of basal cell carcinoma (proced ure) Excision of basal cell carcinoma (proced ure) Excision of squamous cell carcinoma (pro cedure) Surgical biopsy of skin (procedure) Excision of basal cell carcinoma (proced ure) Excision of squamous cell carcinoma (pro cedure) Surgical biopsy of skin (procedure) Surgical biopsy of skin (procedure) Excision of basal cell carcinoma (proced ure) Excision of squamous cell carcinoma (pro cedure) Documentation of past medical history (p rocedure) Surgical biopsy of skin (procedure) Excision of squamous cell carcinoma (pro cedure) Excision of basal cell carcinoma (proced ure) Excision of basal cell carcinoma (proced ure) Surgical biopsy of skin (procedure) Documentation of past medica l history (procedure) Parotid Gland Excision of squamous cell carcinoma (pro cedure) Review Of Systems Provider reviewed on Jun 26, 2025.A focused review of systems was performed including Hematologic /Lymphatic and Integumentary.No Problems With Healing, No Problems With Scarring (hypertrophic Or Keloid), And No Problems With Bleeding. Assessment 1.History of squamous cell carcinoma - 06/26/25: he just completed a five day per week times five week course of radiation to the left ear and left side of his neck, which he said, was one of the worst experiences of his life. He has had extreme fatigue, loss of taste, and difficulty swallowing. 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 This was stopped at the time of the rash and he has been cleansing with proprietary soap and using Vaseline. Exam reveals a moderate degree of redness with dryness and some follicular???s on the left side of his neck and left of the neck. No evidence of post or secondary infection. His ear does not appear to be involved. I suggested he cleanse with Cerave cream cleanser, and apply Cerave moisturizer in the morning and to resume TAC cream in theevening. He will call me if not improved after several weeks. 03/20/25: He came in today as a tuck in concerned about possible infection behind R ear having noted pain and fouls smelling discharge from behind left ear lobe which has since resolved. Exam is negative today for palpable nodes, infection, discharge etc and no tender spots. He is due to have extensive neck surgery at [facility]/ by Dr. Moran week of L parotid area and to remove many nodes. He reports doing very well on immunotherapy. No palpable nodes today. 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 PET and CT scans negative for distant metastases. He is scheduled to begin immun otherapy q 3wks to be f/b surgery and possibly XRT. 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 Furthermore, at /derm was noted to have several new SCC on BX R [place] and R jehovah's witness and to have MOHS at as well. Willf/u with me when releases him and I have requested they send records. 10/27/24: L ear healing very well. No longer symptomatic. Saw Dr. Adams who reports healing is good and recommended to have periodic CAT scans. No regional nodes. 09/08/24: Reports L parietal scalp numbness which his surgeon has advised likely to take many months to resolve. He also went to and no further intervention jani mmended at this time. No regional or peripheral lymphadenopathy. Pt reports decrease hearing L ear which may be the result of narrowing of the external auditory canal and will see Dr. Adams for further evaluation.Counseling2.Actinic KeratosesCounseling Plan of Care Future visit for 09/18/2025 - Follow up in 3 months for: Skin Check, Skin Cancer Surveillance - 15 minutes Code Detail Instructions [id number] minocycline 50 mg capsule Take o ne cap every other day with option to decrease to one cap Thursday, Thursday and Thursday am in Dec, 2024 if doing well. [id number] minocycline 50 mg capsule Take o ne cap every other day with option to decrease to one cap Thursday, Thursday and Thursday am in Dec, 2024 if doing well. [id number] minocycline 50 mg capsule Take o ne cap every other day with option to decrease to one cap Thursday, Thursday and Thursday am in Dec, 2024 if doing well. [id number] Cipro 250 mg tablet Take one QD with option to increase BID 527479 mupirocin 2 % topical ointment A pply once daily to biopsy site on left leg, right leg, right arm and on ear 261455 gentamicin 0.1 % topical ointmen t Apply TID to left ear folliculitis 407156 cephalexin 500 mg capsule Take 1 cap QID for 10 days 544038 ciclopirox 0.77 % topical cream Apply bid to fungal rash on R buttock until clear. [id number] sulfacetamide sodium (acne) 10 % lotion (suspension) Apply QHS to face for rosacea. [id number] minocycline 50 mg capsule Take o ne pill BID until improved, the reduce to one pill daily. 368134 mupirocin 2 % topical ointment A pply once daily to biopsy site on left leg, right leg, right arm and on ear 905973 cephalexin 500 mg capsule Take 1 pill TID for 10 days 282562 mupirocin 2 % topical ointment A pply BID to rash on face until clear. 601655 cephalexin 250 mg capsule Take 1 pill QID for 10 days. 110116 mometasone 0.1 % topical cream A pply BID to rash on ears, neck, and buttocks. 8986138 sulfacetamide sodium (acne) 10 % lotion (suspension) Apply QHS to face for rosacea. [id number] minocycline 50 mg capsule Take o ne pill BID until improved, the reduce to one pill daily. 20300616 ketoconazole 2 % topical cream A pply sparingly once per day to face and BID to feet. 20300616 ketoconazole 2 % topical cream A pply sparingly once per day to face and BID to feet. [id number] minocycline 50 mg capsule Take o ne pill BID until improved, the reduce to one pill daily. 20300616 ketoconazole 2 % topical cream A pply very sparingly bid to genital area prn 20300616 ketoconazole 2 % topical cream A pply very sparingly bid to genital area prn 376697 griseofulvin ultrami crosize 250 mg tablet Take one pill daily with dinner until clear. 147345 ciclopirox 0.77 % topical cream Apply bid to fungal rash on R buttock until clear. 6241815 sulfacetamide sodium -sulfur 10 %-5 % (w/w) lotion Apply qhs for facial Rosacea 522372 metronidazole 0.75 % topical cre am Apply qam to face for acne [id number] minocycline 50 mg capsule Take 1 pill BID until better, then reduce to 1 pill daily, then taper off. [id number] metronidazole 0.75 % topical cre am Apply qam to face for acne 5107425 sulfacetamide sodium -sulfur 10 %-5 % (w/w) lotion Apply qhs for facial Rosacea 404283 Efudex 5 % topical cream Apply o ne day per week (ie Thursday) AM and PM to red, scaly areas of sundamage on face for 3 months. 7703714 sulfacetamide sodium (acne) 10 % lotion (suspension) Apply qhs to face for Rosacea 1007631 sulfacetamide sodium (acne) 10 % lotion (suspension) Apply qhs to face for Rosacea 069296 mupirocin 2 % topical ointment A pply sparingly tid to infection of L ear and L side of neck until clear22 9097882 sulfacetamide sodium -sulfur 10 %-5 % (w/w) lotion Apply qhs for facial Rosacea 341477 mupirocin calcium 2 % topical cr eam Apply sparingly tid to infection of L ear and L side of neck until clear 607313 nystatin 100,000 uni t/gram topical powder Apply QAM to diaper area. 633371 ciclopirox 0.77 % topical cream Apply BID to fungal infection on the buttocks until clear 035963 cephalexin 500 mg capsule Take 1 capsule 4 times daily for eyelid infection Instructions * I counseled the patient regarding the following:Skin care: Acute radiodermatitis can be treated acutely with gentle cleansers, antibiotic ointments and sterile dressings.Expectations: Acute radiodermatitis result from acute damage to the skin from ionizing radiation. Common radiation sources include fluoroscopy external beam radiation. Resulting redness and skin necrosis usually resolves with supportive treatment.Contact office if: Patient notices any ulcerations, fevers, chills, signs of infection or new suspicious lesions. * I counseled the patient regarding the following:Skin Care: Sun protective clothing, broad brimmed hat and broad spectrum sunscreen can prevent the formation of Actinic Keratoses. AKs can resolve withcryotherapy, photodynamic therapy, imiquimod, topical 5-FU.Expectations: Actinic Keratoses are preca ncerous proliferations that occur within sun damaged skin. If untreated, a small subset of AKs can develop into Squamous Cell Carcinoma. It is not likely that AK?s can be totally cured and there are likely to be recurrences and new lesions over time. The expectations with treatment should be control.Discussed 5FU and given AK info and treatment instructionsAdvised to seek shade, wear sun protective gear including wide brim hat, sunglasses and consider sun protective clothing. For patients with severe sun damage, might consider tinted car windows.Daily mineral based and or tinted sunscreenHe has a few hypertrophic AK???s of cheeks, which we will hold off on treating until his cancer status is more completely defined. He is due to have PET and CAT scan in September following which he will return to the office.I recommended the following: Broad Spectrum Sunscreen SPF 30+ Social History Code Activity Start Date End Date [id number] (SNOMED) Never smoker Sex male Sexual orientation Unspecified Gender identity Unspecified Vital Signs No data
--- OUTSIDE RECORDS SUMMARY | 2025-06-28 11:04 | XMS_ITS | Clinical Summary ---
Author Organization [facility] Address [address] [place] [address] Care Team Providers Care Radiator Repairer Name Role Phone Mariely Vargas MD Primary Care Provider [phone] Allergies Active Allergy Reactions Criticality Noted Date [...] 74 08/02/2024 9:47 AM EDT Temperature 36.6 C (97.8 F) 08/02/2024 9:47 AM EDT Respiratory Rate - - Oxygen Saturation 100% [...] risk series) 09/12/2021 08/22/2021 Influenza Vaccine (#1) 2025 3, 08/22/2021, 08/23/2018 RSV Adult > 60+ Yrs or (1 - 1-dose 75+ series) 2026 Hepatitis B Vaccines Aged Out No long er eligible based on patient's age to complete this topic RSV Ped < 20 months Aged Out No longe r eligible based on patient's age to complete this topic Care Teams Radiator Repairer Relationship Specialty Start Date End Date Mariely Vargas MD [address] [place], [place] PCP - General Internal Medicine 05/29/22
--- OUTSIDE RECORDS SUMMARY | 2025-06-28 11:04 | XMS_ITS | Encounter Summary ---
Author Organization [facility] Address [address] [place] [address] Care Team Providers Care Neurosurgery Spine Physician Name Role Phone Mariely Vargas MD Primary Care Provider [phone] Encounter Details Date Type Department Care Team (Late st Contact Info) Description 09/23/2024 Lab Requisition [facility] - Main Lab [address] [place] [id number] [place]ie [place], [place] [address] [address] Dysuria Social History Tobacco Use Types Packs/Day Years Used Date Smoking Tobacco: Never Smokeless Tobacco: Never Alcohol Use Standard Drinks/Week Comments No 0 (1 standard drink = 0.6 oz pur e alcohol) Sex and Gender Information Value Date Recorded Sex Assigned at Male 04/21/2025 5:24 PM EDT Legal Sex Male 3:50 AM EST Gender Identity Male 04/21/2025 5:24 PM EDT Sexual Orientation Not on file documented as of this encounter Plan of Treatment Upcoming Encounters Date Type Department Care Team (Late st Contact Info) Description 07/04/2025 9:30 AM EDT Office Visit [facility] Hematology Oncology [address] [place] [address] Lor Bal MD [address] [place] [address] documented as of this encounter Procedures Procedure Name Priority Date/Time Associated Diagnosis Comments BACTERIAL IDENTIFICATION AND SUSCEPTIBILITY, AEROBIC Routine 09/22/2024 10:45 AM EST Dysuria documented in this encounter Results * (ABNORMAL) Bacterial identification and susceptibility, aerobic (09/22/2024 10:45 AM EST) Culture, Bacterial ID and Sensitivity Klebsiella pneumoniae ssp pneumoniae(A) LOVE 09/24/2024 9:01 AM EST [facility] Comment: This is an edited [...] MICROBIOLOGY - GENERAL ORDER KEVIN Final Result [facility]) [facility] [address] [place] [address], documented in this encounter Visit Diagnoses Diagnosis Dysuria documented in this encounter Additional Health Concerns Infection Onset Date Last Indicated Resolved Time CRE 02/17/2025 02/17/2025 MDRO (other) 02/17/2025 02/17/2025 documented as of this encounter Care Teams Neurosurgery Spine Physician Relationship Specialty Start Date End Date Mariely Vargas MD [address] [place] [phone] PCP - General 05/29/22 documented as of this encounter
== END 2025-06-28 10:44 | disposition home or self-care (01) ==
LOC: HO.HPS 10:03
PROVIDERS: PCP Hospitalist; Visit Provider Hospitalist
DX: J98.4 Other disorders of lung (principal); R91.1 Solitary pulmonary nodule; G47.33 Obstructive sleep apnea (adult) (pediatric); Z99.89 Dependence on other enabling machines and devices; J30.9 Allergic rhinitis, unspecified; R05.3 Chronic cough; C44.229 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 and external auricular canal
CPT/HCPCS: 99214; G2211

== ENCOUNTER → 2025-06-28 10:02 | Outpatient (BNVA) | payer MEDICARE, SELFPAY | PROVIDERS: PCP Hospitalist; Visit Provider Hospitalist | DX: J98.4 Other disorders of lung (principal); J30.9 Allergic rhinitis, unspecified; R91.1 Solitary pulmonary nodule; G47.33 Obstructive sleep apnea (adult) (pediatric); R05.3 Chronic cough; C44.229 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 and external auricular canal; Z99.89 Dependence on other enabling machines and devices | CPT/HCPCS: 99212 ==

== ENCOUNTER 2025-08-24 08:39 | Outpatient (AMB) | payer MEDICARE, SELFPAY ==
--- OUTSIDE RECORDS SUMMARY | 2025-02-21 07:15 | XMS_ITS ---
Author Organization [facility] Address [address] [address] Care Team Providers Care Librarian Head Name Role Phone TROY LOBO Primary Care Provider [phone] Elsa Talamantes [phone] REASON FOR VISIT Milvia D/C 02/05/25 Encounters Encounter Location Date Provider Diagnosis [facility] [address] [address] 02/21/2025 Elsa Talamantes Plan Of Treatment Next Appt Details Provider Name:TROY LOBO , 09/04/2025 10:00:00 AM, [address] [place] [address], [place], [address], Progress Notes * Clay JOHNSONDOB:1950 ([age] yo M)Acc No.[id number]:02/21/2025 Patient: Clay STANTON Appointment Provider: Jake Talamantes :1950 A ge:74 Y S ex:Male Date:02/21/2025 Address:[address] [place] [address] Pcp:TROY LOBO Subjective: * Chief Complaints: * 1 . [facility] D/C 02/05/25. * Medical History: Objective: * Vitals: Assessment: Plan: * Treatment: * Images: * Electronic signature of Honorio Talamantes PA-C on 08/24/2025 at 09:28 AM EDT Sign off status: Pending * Appointment Provider: Jake Talamantes Date: 0 02/21/2025 Generated for Annie navas/Casandra/Ronda on: 1 09:28 AM EDT
--- OUTSIDE RECORDS SUMMARY | 2025-08-10 13:30 | XMS_ITS | Encounter Summary ---
Author Organization [facility] Address [address] [facility] [address] [place] [address] Phone Care Team Providers Care Locomotive Inspector Name Role Phone Mariely Vargas MD Primary Care Provider Lindsay Perales MD Unavailable Richard Eden DO, Justine Unavailable [phone] Maribel Nur MD, MPH Unavailable Kezia Webb MD Unavailable [phone] Lor Bal MD Unavailable [phone] Mynor Coats MD Unavailable Eliseo Rand RN Unavailable [email or web address] Grover Barbosa MD Unavailable Neville Torres MD Unavailable + [phone] Kya Diaz RN Unavailable [email or web address] Yvonne Lewis Unavailable [phone] Brennon Delcid MD, MPH Unavailable + Cathy Schmidt PA-C Unavailable + Reason for Referral * E-Consult - New Request Specialty Diagnoses / Procedures Referred By Contvladislav t Referred To Contact Pulmonary Disease Diagnoses Pneumonia of both lungs due to infectious organism, unspecified part of lung Procedures Ambulatory [facility] Pulmonology E-Consult Cathy Schmidt PA-C [address] [place] [address] Phone: tel: fax: [email or web address]:[email or web address] Referral ID Status Reason Start Date Expiration Date V isits Requested Visits Authorized [id number] New Request 08/10/2025 1 1 Encounter Details Date Type Department Care Team (Late st Contact Info) Description 08/10/2025 1:30 PM EDT Hospital Encounter [facility] Department of Radiation Oncology [address] [facility], [address] [place] [address] Cathy Schmidt PA-C [address] [place] [id number] [email or web address] Brennon Delcid MD, MPH [address] [place] [address], ASB1- L2 [place] [address] [email or web address] Social History Tobacco Use Types Packs/Day Years Used Date Smoking Tobacco: Never Smokeless Tobacco: Never Alcohol Use Standard Drinks/Week Comments Yes 22 (1 standard drink = 0.6 oz pure alcohol) social drink, nothing since January 2025 Child or Family Care Answer Date Record ed Do you have problems with on e of the following making it difficult for you to work, study, or receive health care? No 07/18/2024 Education Answer Date Recorded Are you interested in more education? Not on benedicto e 03/05/2023 Are you concerned about learning? Not on file 03/05/2023 No 03/05/2023 No 03/05/2023 Food Answer Date Recorded Within the past 6 months we worried whether our food would run out before we got money to buy more. Never True 03/29/2025 Within the past 6 months the food we bought just didn't last and we didn't have enough money to get more. Never True Residential Stability Answer Date Recor ded What is your housing situation today? I have bryan carter 03/29/2025 How many times have you move d in the past 12 months? Zero (I did not move) 03/29/2025 Paying for Meds Answer Date Recorded Do you have trouble paying for medicines? No 03/29/2025 Paying Utility Bills Answer Date Record ed Do you have trouble paying your heating or elect ricity bill? No 03/29/2025 Transportation Answer Date Recorded Has the lack of transportati on kept you from medical appointments or from getting medications? No 03/29/2025 Digital Access Answer Date Recorded No 03/29/2025 Yes 03/29/2025 Do you have reliable internet access at home? Ye s 03/29/2025 Do you have a device (e.g., phone, tablet, computer) with a working camera? Yes 03/29/2025 Intimate Partner Violence Answer Date R ecorded Are you denied basic needs s uch as food, clothing, or medical care? No 03/29/2025 In the past 12 months have y ou been in a relationship with a person who hurts, threatens, or tries to control you? No 03/29/2025 Are you denied basic needs s uch as food, clothing, or medical care? No 03/29/2025 In the past 12 months have y ou been in a relationship with a person who hurts, threatens, or tries to control you? No 03/29/2025 Sex and Gender Information Value Date Recorded Sex Assigned at Male 07/12/2024 4:52 PM EDT Legal Sex Male 7:22 PM EST Gender Identity Male 07/12/2024 4:52 PM EDT Sexual Orientation Straight 07/12/2024 4: 52 PM EDT documented as of this encounter Progress Notes * Cathy Schmidt PA-C - 08/10/2025 1:30 PM EDT Images from the original note were not included. DEPARTMENT OF RADIATION ONCOLOGY?? ?[facility] - [address] [place] [id number] ?? ?[facility] - [address] [place] [address] ?? ?[facility]- [address] [place] [address] ?? Radiation Oncology Established Patient Note Patient: Clay Barron Date of : 1950 Radiation Oncologist: Brennon Delcid MD Surgical Oncologist: Maribel Nur MD Medical Oncologist: Libertad Ramos DO Chief Complaint: Recent completion of radiation, medication management and skin assessment Performance Status: 1- Restricted in physically strenuous activity but ambulatory and able to carryout work of a light or sedentary nature, e.g., light house work, office work Identification: This is a 74 y.o. 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 He completed postoperative radiation therapy to the primary, parotid and ipsilate ral neck on 06/14/2025 (25 fx, 50 Gy). Interval History: Clay Barron presents today with his . - saw oral medicine earlier who did steroid injections and prescribed steroid/ nystatin rinse - feels much better after injections - lips have healed significantly. Continues with skin regimen of protopic/ketoconazole and mupirocin - nebulizer has not yet come to the house. Coughing up a lot of green stuff, - Feeling okay - labs/ CXR done earlier today - Weight has been difficult because foods taste so bad and he is not motivated to eat. - Pain meds: now on 10 mg oxycontin BID, and 2000 mg tylenol BID. Also taking tussin QID. Happy with improvement in mouth since injections today and initiation of creams next week Review of Systems: As per HPI Past Medical History: Past Medical History: Diagnosis Date Acquired hypothyroidism 01/29/2023 Acquired hypothyroidism 05/26/2017 Anemia ? Chronic gout 05/26/2017 Chronic rhinitis 12/29/2017 Claudication of lower extremity 02/23/2024 Disorder associated with type 2 diabetes mellitus 12/20/2024 Dysphagia 2024 lately difficulty taking pills, and food at times Epistaxis 04/04/2020 Epistaxis; Note: Date Diagnosed: 04/04/2020 9:58 AM (R04.0) Gastroesophageal reflux disease Gout 12/20/2024 History of severe acute respiratory syndrome coronavirus 2 (SARS-CoV-2) disease 12/20/2024 Hyperglycemia 05/26/2017 Hypertrophy of tonsils 06/01/2018 Hypertrophy of tonsils; Note: Date Diagnosed: 06/01/2018 12:08 PM (J35.1) Impacted cerumen of left ear 09/15/2024 JAK2 positive polycythemia vera recently stopped hydrea recently, recieving immunotherapy Cemiplimab 02/2025 Kidney disease 12/29/2017 Lesion of skin of left ear 04/08/2024 Lung nodule 05/22/2020 Malignant tumor of prostate 10/04/2012 Malignant tumor of prostate Nephrolithiasis 12/29/2017 Nontoxic single thyroid nodule 12/20/2024 Obstructive sleep apnea syndrome 05/26/2017 Obstructive sleep apnea (adult) (pediatric); Note: Date Diagnosed: 04/04/2020 9:58 AM (G47.33) Pain due to varicose veins of both lower extremities 12/20/2024 Personal history of malignant neoplasm of prostate 12/29/2017 Post-phlebitic syndrome 07/29/2022 Pruritus 08/02/2024 Pulmonary nodules 12/29/2017 Rosacea 12/20/2024 Sensorineural hearing loss (SNHL) of both ears 06/11/2018 Sensorineural hearing loss, bilateral; Note: Date Diagnosed: 06/11/2018 10:24 AM (H90.3) Skin cancer of nose 12/29/2017 Type of cancer not indicated, removed 09/2013 Stenosis of right carotid artery 12/20/2024 Thrombocytopenia Thrombocytosis 06/26/2020 Thyroid nodule 01/29/2023 Tinnitus of left ear 06/11/2018 Tinnitus, left ear; Note: Date Diagnosed: 06/11/2018 12:44 PM (H93.12) Type 2 diabetes mellitus without complication, without long-term current use of insulin 01/29/2023 Venous insufficiency of left leg 02/23/2024 Medications: Active Medications Outpatient Medications as of 08/14/2025 Medication acetaminophen (TYLENOL EXTRA STRENGTH ORAL) aspirin 81 MG EC tablet cephalexin (KEFLEX) 250 MG capsule dexAMETHasone 0.5 mg/5 mL solution aftxolppeiVUZFZ-qphrgfgmt-couh-mag-simethicone (MAGIC MOUTHWASH-BLM) 15-219-263-40 mg/30mL suspension econazole nitrate 1 % cream fluticasone propionate (FLONASE) 50 mcg/actuation nasal spray fluticasone propionate (FLONASE) 50 mcg/actuation nasal spray folic acid (FOLVITE) 1 MG tablet gabapentin (NEURONTIN) 300 MG capsule guaiFENesin (ROBITUSSIN) 100 mg/5 mL syrup ipratropium (ATROVENT) 21 mcg (0.03 %) nasal spray ketoconazole (NIZORAL) 2 % shampoo ketoconazole 2 % cream ketoconazole 2 % cream lactobacillus rhamnosus, GG, (CULTURELLE) 10 billion cell capsule levothyroxine (SYNTHROID,LEVOTHROID) 25 MCG tablet LORazepam (ATIVAN) 0.5 MG tablet mupirocin (BACTROBAN) 2 % ointment mupirocin (BACTROBAN) 2 % ointment mupirocin (BACTROBAN) 2 % ointment nystatin (MYCOSTATIN) 100,000 units/mL suspension nystatin cream omeprazole (PRILOSEC) 20 MG capsule OXYCONTIN 10 mg 12 hr tablet sulfacetamide sodium 10 % Susp tacrolimus (PROTOPIC) 0.1 % ointment tadalafiL (CIALIS) 5 MG tablet triamcinolone acetonide 0.1 % cream No current facility-administered medications on file as of 08/14/2025. Allergies: Allergies Allergen Reactions Ciprofloxacin Unknown Doxycycline Unknown Penicillins Unknown Vitals: Vitals There were no vitals filed for this visit. Last 3 Weights: Wt Readings from Last 3 Encounters: 08/10/25 75 kg (165 lb 5.5 oz) 08/03/25 77.1 kg (169 lb 15.6 oz) 07/14/25 79.5 kg (175 lb 4.3 oz) Physical Exam: General: Alert and oriented, in no acute distress. Speech is intelligible Oral cavity: not examined, but prior impetigo on lips clearly resolved Skin: Dry skin of left cheek and neck, no desquamation or radiation dermatitis Lymph nodes: Not examined Assessment and Plan: This is a patient who completed radiation therapy. Oncology - Patient to RTC in 3 mos for re-staging scans and visit with the team. Imaging scheduled by Dr. Ramos for 09/13/25. - I will follow up with patient Thursday to check in on new regimen/ adjustments - Fe/TIBC labs WNL today. Oral care: - Continue with rinse per Dr. Robertson - Has f/u in 3 weeks Nutrition - CMP WNL today. Stressed the need to keep weight up and supplement with liquid nutrition. We discussed the risks of continued weight loss, which could include hospitalization Thick secretions - tussin - nebulizer at home DDX Pneumonia - Called reading room prior to final CXR read and they felt that left lower lobe pneumonia was present. I also performed econsult with pulm to discuss patient's case, and they felt it's not clear whether this is persistent from his prior two recent infections or a new infection. Reviewed case with rosibel's medical oncologist as well. We both felt that given increase in WBC (18 today), reportingof green sputum and known thick secretions, concern for worsening systemic infection. Given his multiple prior courses organized by local PCP, our team reached out to PCP to request they initiate rx.Will continue to monitor and will obtain CT chest at re-staging scans in September. Will discuss alternative abx regimens with ID should pneumonia recur (vs consult with pulmonology). Pain Management - 10 mg oxycontin BID, no longer on gabapentin per Dr. Green All patient questions answered. Patient agrees with treatment plan. Patient instructed to contact our office in the interim with any questions or concerns. SONIA Aceves Radiation Oncology [facility]/ [facility] documented in this encounter Plan of Treatment Upcoming Encounters Date Type Department Care Team (Late st Contact Info) Description 06/21/2025 [facility], [facility], [place] [address] [facility], [address] [place] [address] 07/24/2025 Procedure Pass [facility] Imaging Department, [facility], MRI [address] [facility], [address] [place] [address] 08/14/2025 Procedure Pass [facility] Imaging Department, [facility], [place] [address] [facility], [address] [place] [address] 08/24/2025 10:00 AM EDT Appointment [facility] Department of Radiation Oncology [address] [facility], [address] [place] [address] Cathy Schmidt, DIONNA [address] [place] [address] [place] [address] Brennon Delcid MD, MPH [address] [facility], ASB1- [address]2 [place] [address] [email or web address] 08/31/2025 10:00 AM EDT Office Visit Oral Medicine, [address], 11[address] [place] [address] Hao Robertson DMD, PhD [address] [place] [phone] [email or web address] 09/05/2025 11:00 AM EDT Nutrition Nutrition Department, [address] [address] Zenobia Hebert LDN [address] [place] [address] 09/07/2025 11:00 AM EDT Treatment Center for [facility]ck Oncology, [facility] [address] [facility], 11th [place], [place] [phone] Maribel Nur MD, MPH [address] [place], [place] [email or web address]@[email or web address] Shoshana Fernandez, [facility] [address] [place] [phone] [email or web address] 09/13/2025 9:30 AM EST Blood Draw Laboratory Services, [address], 2nd Floor [place] Libertad Ramos V, DO [address] [place], [place] [email or web address] 09/13/2025 12:30 PM EST Appointment Erika [facility] Imaging Department, [facility], PET/CT [address] [place], [place] Libertad Ramos V, DO [address] [place] [address] [email or web address] 09/13/2025 1:40 PM EST Appointment Erika [facility] Imaging Department, [facility], [place] [address] [facility], [address] [place], [place] [phone] Cathy Schmidt, DIONNA [address] [facility] and [facility] Brennon Delcid MD, MPH [address] [facility], ASB1- L2 [place], [place] [email or web address] 09/13/2025 3:30 PM EST Office Visit Center for Head [facility] Neck Oncology, [facility] [address], [address] [place] [address] Brennon Delcid MD, MPH [address] [facility], [facility]- [address] [address] [email or web address] 09/15/2025 8:30 AM EST Office Visit [facility], [facility] [address], [address] [place] [address] Maribel Nur MD, MPH [address] [place] [phone] [email or web address] 09/19/2025 9:20 AM EST Office Visit [facility] [address] [place] [address] Alla Escobar MD [address] [place] [address] 3[address] [place] [address] 09/19/2025 10:00 AM EST Telemedicine Center for Melanoma, [facility] [address], 5th [place] [address] Libertad Ramos DO [address] [place] [address] [email or web address] 10/26/2025 11:40 AM EST Appointment Erika [facility] Imaging Department, [facility], MRI [address] [place] [address], Floor [address] [place] [address] Libertad Ramos DO [address] [place] [address] [email or web address] 11/07/2025 10:30 AM EST Blood Draw Laboratory Services, [facility] [address] [facility], 2nd [place] [address] Darinel Ordaz M.D. Leukemia MD Mike [address] [place], [place] [phone] [place] [address] [email or web address] 11/07/2025 11:30 AM EST Office Visit Center for Leukemia, Division of Hematologic Oncology, [address], 8th [place] [address] Darinel Ordaz M.D. Leukemia MD Mike [address] [place], [place] [phone] [place] [address] [email or web address] documented as of this encounter Visit Diagnoses Diagnosis Pneumonia of both lungs due to infectious organism, unspecified part of lung- Primary documented in this encounter Care Teams Locomotive Inspector Relationship Specialty Start Date End Date Mariely Vargas MD [address] [place] [address] PCP - General Internal Medicine 03/29/24 Lindsay Perales MD [address] [place] [address] [email or web address] Radiation Oncology 07/12/24 Libertad Ramos DO [address] [place] [address] [email or web address] Medical Oncology 12/22/24 Maribel Nur MD, MPH [address] [place] [address] [email or web address] Otolaryngology 12/22/24 Kezia Webb MD [address] [place] [address] [email or web address] Dermatology 12/22/24 Lor Bal MD [address] [place] [phone] Wendy [email or web address] 12/22/24 Mynor Coats MD [facility] [address] [address] Dermatology 01/02/25 Eliseo Rand RN [address] [place] [address] [email or web address] Associate Infusion Nurse 01/02/25 Grover Barbosa MD [address] [place] [address] [place] [address] Refractory Tile Helper Pulmonary Disease 01/05/25 Neville Torres MD [address] [place] [address] Urology 01/27/25 Kya Diaz RN [address] [address] [email or web address] Associate Infusion Nurse 01/23/25 Yvonne Lewis [address] [place] [address] [email or web address] Mending Carrier 04/13/25 Brennon Delcid MD, MPH [address] [place] [address], ASB1- L2 [place] [address] [email or web address] Radiation Oncology 06/02/25 Cathy Schmidt PA-C [address] [place] [address] [place] [address] [email or web address] Physician Group Home Paraprofessional 06/14/25 documented as of this encounter Additional Source Comments The information contained in this document represents components of the legal health record. It is not the complete legal health record.[facility]
--- OUTSIDE RECORDS SUMMARY | 2025-08-16 11:05 | XMS_ITS | Encounter Summary ---
Author Organization [facility] Address [address] [place] [phone] Phone Care Team Providers Care U.[employer]. Revenue Officer Name Role Phone Mariely Vargas MD Primary Care Provider [phone] Lindsay Perales MD Unavailable Richard Eden DO, Justine Unavailable [phone] Maribel Nur MD, MPH Unavailable Kezia Webb MD Unavailable [phone] Lor Bal MD Unavailable [phone] Mynor Coats MD Unavailable [phone] Eliseo Rand RN Unavailable [email or web address] Grover Barbosa MD Unavailable Neville Torres MD Unavailable + [phone] Kya Diaz RN Unavailable Naga [email or web address] Yvonne Lewis Unavailable [phone] Brennon Delcid MD, MPH Unavailable + Cathy Schmidt PA-C Unavailable + Encounter Details Date Type Department Care Team (Late st Contact Info) Description 08/16/2025 11:05 AM EDT Hospital [facility] Department of Radiation Oncology [address] [facility], Floor [address] [place] [address] Cathy Schmidt PA-C [address] [facility] [place] [address] Brennon Delcid MD, MPH [address] [facility], ASB1- [address]2 [place] [address] [email or web address] Social History Tobacco Use Types Packs/Day [...] your housing situation today? I have bryan sing 03/29/2025 How many times have you move [...] Progress Notes * Cathy Schmidt PA-C - 08/16/2025 1:30 PM EDT Images from the original note were not included. Expand All Collapse All DEPARTMENT OF RADIATION ONCOLOGY?? ?[facility] - [address] [place] [address] ?? ?[facility] - [address] [place] [address] ?? ?[facility]- [address] [place], [place] [phone] ?? Radiation Oncology Established Patient Note Patient: [...] Barron presents today with his . - Review of Systems: As per HPI Past [...] Venous insufficiency of left leg 02/23/2024 Medications: Outpatient Medications as of 08/16/2025 Medication acetaminophen (TYLENOL EXTRA STRENGTH ORAL) aspirin 81 MG EC tablet cephalexin (KEFLEX) 250 MG capsule dexAMETHasone 0.5 mg/5 mL solution econazole nitrate 1 % cream fluticasone propionate [...] cell capsule levothyroxine (SYNTHROID,LEVOTHROID) 25 MCG tablet mupirocin (BACTROBAN) 2 % ointment mupirocin (BACTROBAN) 2 % ointment mupirocin (BACTROBAN) 2 % ointment nystatin (MYCOSTATIN) 100,000 units/mL suspension nystatin cream omeprazole (PRILOSEC) 20 MG capsule OXYCONTIN 10 mg 12 hr tablet sulfacetamide sodium 10 % Susp tacrolimus (PROTOPIC) 0.1 % ointment tadalafiL (CIALIS) 5 MG tablet triamcinolone acetonide 0.1 % cream No current facility-administered medications on file as of 08/16/2025. Allergies: Allergies Allergen Reactions Ciprofloxacin Unknown Doxycycline Unknown Penicillins Unknown Vitals: There were no vitals filed for this visit. Last 3 Weights: Wt Readings from Last 3 Encounters: 08/16/25 73.3 kg (161 lb 9.6 oz) 08/10/25 75 kg (165 lb 5.5 oz) 08/03/25 77.1 kg (169 lb 15.6 oz) Physical Exam: General: Alert and oriented, in no acute distress. Speech is intelligible Oral cavity: No thrush or significant mucositis Skin: Dry skin of left cheek and neck, no desquamation or radiation dermatitis Lymph nodes: Not examined Assessment and Plan: This is a patient who completed radiation therapy. Oncology - Patient to RTC in 3 mos for re-staging scans and visit with the team. Imaging scheduled by Dr. Ramos for 09/13/25. - I will follow up with patient in 1 week virtually. Will discuss obtaining local labs with local team Oral care: - Continue with rinse per Dr. Robertson - Has f/u in 3 weeks Nutrition - A few lb weight loss, but patient feeling well overall and I am confident he is motivated to maintain his weight. Thick secretions - tussin - nebulizer at home DDX Pneumonia - pRescribed abx by local team Pain Management - 10 mg oxycontin BID, no longer on gabapentin per Dr. Green All patient questions answered. Patient agrees with treatment plan. Patient instructed to contact our office in the interim with any questions or concerns. SONIA Aceves [facility] documented in this encounter Plan of Treatment Upcoming Encounters Date Type Department Care Team (Late st Contact Info) Description 06/21/2025 Procedure Pass Erika Lank Imaging Department, [facility], [place] [address] [facility], [address] [place] [address] 07/24/2025 Procedure Pass [facility] Imaging Department, [facility], MRI [address] [facility], [address] [place] [address] 08/14/2025 Procedure Pass [facility] Imaging Department, [facility], [place] [address] [facility] [address] [facility], [address] [place] [address] 08/24/2025 10:00 AM EDT Appointment [facility] Department of Radiation Oncology [address] [facility], [address] [place] [address] Cathy Schmidt PA-C [address] [place] [address] [place] [address] [email or web address] Brennon Delcid MD, MPH [address] [place] [address], ASB1- L2 [place] [address] [email or web address] 08/31/2025 10:00 AM EDT Office Visit Oral Medicine, [address], [address] [place] [address] Hao oRbertson DMD, PhD [address] [place] [phone] [email or web address] 09/05/2025 11:00 AM EDT Nutrition Nutrition Department, [address] [address] Zenobia Hebert LDN [address] [place] [address] [email or web address] 09/07/2025 11:00 AM EDT [facility], [address], [address] [place] [address] Maribel Nur MD, MPH [address] [place] [address] [email or web address] Shoshana Fernandez, [facility] [address] [place] [address] [email or web address] 09/13/2025 9:30 AM EST Blood Draw [facility] Services, [address], 2nd Floor [place], [place] Libertad Ramos V, DO [address] [place] [address] [email or web address] 09/13/2025 12:30 PM EST Appointment [facility] Imaging Department, [facility], PET/CT [address] [place], [place] Libertad Ramos V, DO [address] [place] [address] [email or web address] 09/13/2025 1:40 PM EST Appointment [facility] Imaging Department, [facility], [place] [address] [facility], [address] [place] [address] Cathy Schmidt PA-C [address] [place] [address] [place] [address] Brennon Delcid MD, MPH [address] [facility], ASB1- [address]2 [place] [address] [email or web address] 09/13/2025 3:30 PM EST Office Visit [facility], [facility] [address] [facility], 11th [place] [address] Brennon Delcid MD, MPH [address] [facility], ASB1- [address]2 [place] [address] [email or web address] 09/15/2025 8:30 AM EST Office Visit [facility], [facility] [address], [address]th [place] [address] Maribel Nur MD, MPH [address] [place] [address] [email or web address] 09/19/2025 9:20 AM EST Office Visit [facility] [address] [place] [address] Alla Escobar MD [address] [place] [address] 3[address] [place] [address] 09/19/2025 10:00 AM EST Telemedicine [facility], [address], 5th [place] [address] Libertad Ramos DO [address] [place] [address] [email or web address] 10/26/2025 11:40 AM EST Appointment Erika Lank Imaging Department, [facility], MRI [address] [place] [address], Floor [address]1 [place] [address] Libertad Ramos DO [address] [place] [address] [email or web address] 11/07/2025 10:30 AM EST Blood Draw Laboratory Services, [facility] [address] [facility], 2nd [place] [address] Darinel Ordaz M.D. Leukemia MD Mike [address] [facility] [place], [place] [email or web address] 11/07/2025 11:30 AM EST Office Visit Center for Leukemia, Division of Hematologic Oncology, [facility] [address] [facility], 8th Floor [place], [place] [phone] Darinel Ordaz M.D. 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 Revenue Officer Relationship Specialty Start Date End Date Mariely Vargas MD [address] [place] [address] PCP - General Internal Medicine 03/29/24 Lindsay Perales MD [address] [place] [address] [email or web address] Radiation Oncology 07/12/24 Libertad Ramos DO [address] [place] [address] [email or web address] Medical Oncology 12/22/24 Maribel Nur MD, MPH [address] [place] [address] [place] [address] [email or web address] Otolaryngology 12/22/24 Kezia Webb MD [address] [place] [address] [email or web address] Dermatology 12/22/24 Lor Bal MD [address] [place] [phone] Wendy [email or web address] Internal Medicine 12/22/24 Mynor Coats MD [facility] [address] [address] Dermatology 01/02/25 Eliseo Rnad RN [address] [place] [address] [email or web address] Associate Infusion Nurse 01/02/25 Grover Barbosa MD [address] [place] [address] [place] [address] Supervisor Polishing Pulmonary Disease 01/05/25 Neville Torres MD [address] [place] [address] Urology 01/27/25 Kya Diaz, PHILIPPE [address] [address] [email or web address] Associate Infusion Nurse 01/23/25 Yvonne Lewis [address] [place] [address] [place] [address] [email or web address] Estate Attorney 04/13/25 Brennon Delcid MD, MPH [address] [place] [address], ASB1- [address]2 [place] [address] [email or web address] Radiation Oncology 06/02/25 Cathy Schmidt PA-C [address] [place] [address] [place] [address] [email or web address] Physician Limb Driver 06/14/25 documented as of this encounter Additional Source Comments The information contained in this document represents components of the legal health record. It is not the complete legal health record.[email or web address]
[2025-08-24 08:42] VITALS: BP 100/40; PULSE 78; O2SAT 98; BMI 23.6
--- NOTE | 2025-08-24 08:42 | MHC.OFFVIS ---
Vital Signs 08/24/25 08:42 Height 5 ft 10 in Weight 164 lb 3.91 oz BMI 23.6 BP 100/40 L Blood Pressure Location Lt brachial Position Sitting Pulse 78 Pulse Source Pulse Oximeter Pulse Oximetry (%) 98 Oxygen Delivery Method Room Air Intake Visit Reasons: Pulmonary Nodules Tower Cleaner Required: No Accompanied by: Spouse Allergies doxycycline Allergy (Severe, Verified 08/24/25 08:46) nausea and vomiting Cipro Allergy (Severe, Uncoded 01/03/25 09:55) Diarrhea Penicillin Allergy (Severe, Uncoded 01/03/25 09:55) Rash HPI Comments Details: The patient is a 74-year-old gentleman known [place], chronic rhinitis in the in addition to pulmonary nodules. In regards of is CPAP the CPAP therapy has been affecting beneficial. However, he doesn't seem to be able to tolerated the whole night. We did request a download showing that he has apnea is improved dramatically with an AHI of less than 1. His average pressure is around 6 to 9. The therapy has been affecting beneficial. At this point will try to minimize the pressures to minimize difficulties tolerating it the whole night. I also think that he needs a new mask. I did recommend the [employer] fullface mask. In regards to the pulmonary nodules he is last CT scan of the chest was done at [facility] back in February 2019 demonstrating stable pulmonary nodules and interstitial changes when compared to 2016. He has been having issues with nasal congestion. He stop the Astelin nasal spray. He is continue the ipratropium. At this point he has nasal congestion is worse. 05/15/2020. The patient is here for pulmonary follow-up visit. Overall the patient is doing okay. He was having issues with fatigue and was noted to have some anemia. For the anemia workup included a CT scan of the chest. This time had at [facility] where again diff on the right lower lobe nodular density and also some lymphadenopathy. He is scheduled to undergo a repeat CT scan next week. In the office we did look at the CT scan from February 2019 from [facility] demonstrating similar findings with the parenchymal density, but, will see if there is any changes in the lymphadenopathy appreciated on the recent CT scan. In regards to his obstructive sleep apnea he still struggling with the CPAP. He tries to use it but then takes it off after 1-2 hours. We did switch his APAP to a CPAP pressure of 7 cm and a ramp before. Hopefully, he can tolerate that pressure knowing that a average pressure 6.5 decrease his AHI to 0.9 which is very reassuring. If he cannot tolerate that pressure he can decrease the pressure to 6 or call me and I can decrease the pressure for him. I did provide him with a different mask N30i that he can try as well and see if improves his overall tolerance of the PAP therapy. He also mentions that he had of bloody nose. He was evaluated by ENT. He did have increased vascularity and dryness. Hopefully now in the summertime should be doing okay. Will monitor closely may need of additional humidification or lubrication of the nasal passages for the winter months. He has been evaluated further by the oncologist and did undergo a repeat CT scan of the chest sometime in March 2020 demonstrating still the persistent abnormal finding in the right lower lobe. Has not appear to have changed. In addition to that on examination he continues to have this persistent 3/6 holosystolic murmur radiating to the apex suggestive of a mitral regurgitation murmur. He will be following up with primary care doctor soon, therefore, our request an echocardiogram for them to have available to review and can also reviewed myself as well. 11/15/2020 the patient is here for pulmonary follow-up visit. Overall he is doing very well. He lost significant amount of weight. Partly is because he may need lifestyle changes and will has been exercising more. He also has lost some appetite. He has had imaging studies of his chest, last September 2020 demonstrating interval decrease in the nodular density of his lungs which is very reassuring consistent with the findings that he has had a previous CAT scans from [facility]. His main complaint is that he is having significant nasal congestion. He had also some issues with epistaxis. He has been using the fluticasone with no significant improvement. He has used the attributed nasal spray in the past and also the Astelin but no longer. The patient has not had any allergy testing either. He continues uses CPAP. The CPAP therapy continues to be affecting beneficial. Although the nasal congestion does bother him. He does uses CPAP for more than 4 hours a night. At this point will treat his nasal therapies with ipratropium and also the Astelin can stop the fluticasone. He should be able rinses nose prior to putting on CPAP. Will send him for blood work for further allergy testing. 05/21/2021 the patient is here for a pulmonary follow-up visit. He continues to do very well. Although he continues to lose weight. He states that he has not changed his eating habits and he good appetite. He has been more active walking the golf course more regularly about 5 times a week now he is retired. He has had a workup from his primary care provider oncologist. Currently we did review his CT scan of the chest from [facility] that he had back in 2019 and did demonstrate a benign looking area in the esophagus. This point he is scheduled to undergo an endoscopy which will be helpful to further address that issue. In the meantime will follow his pulmonary nodules. They stable in the past with the weight loss I will request repeat scan this time. In addition to that he will be following up with endocrinology soon. He does describe in addition to weight loss loss and strength. From a nasal congestion standpoint used to using it 3 nasal sprays. Did do help although he prefers not to taking. I did recommend that if he has episodes of worsening nasal congestion he can also try Sudafed. In the meantime he continues uses CPAP. The CPAP therapy continues to be affecting beneficial. He is tolerating it well. He is wondering with weight loss if he still needs it. My recommendation is that if he is tolerating CPAP he to use continue using it. Hold off on sleep study at this time. Will have the patient return in the fall after her CT scan of the chest. 03/26/2023 the patient is here for pulmonary follow-up visit. The patient had a tough winter. He had a respiratory illness briefly that resulted in significant shortness of breath and cough. He did call the office and we did recommend he go to the his primary care since we did not have any availability. The patient currently is doing better. His main complaint always that he has significant nasal congestion and postnasal drip. Moderate to severe. For the most part thin liquid secretions. He did try the petroleum nasal spray with only partial resolution. The patient states that he has been using CPAP at nighttime. Although sometimes difficult for him to tolerated. We did download the machine on he does use it every night but seems to take it off in the middle the night. He does not understand or remember why. Most likely is because the pressure is going up. We did download the machine and appears that his AHI is well below 1 and his average pressure is around 6-7 cm water. Patient likely takes it off when he goes higher than that. In addition to this seems like his current CPAP is not working properly. HIs CPAP is older than 8 years. Will request for placement resmed machine at this time the patient will bring in his new machine when he comes into the next visit. 07/29/2023 the patient is here for pulmonary follow-up visit. Overall the patient has been doing well from a respiratory status. Although he says that he typically has a hard time breathing in the winter time. He has had that difficulty breathing for the last 2 years. This time will reassess him during the winter months. However he still struggling with CPAP mask. The mask is leaking out air into his and then last waking her up. Also the elevated pressures are bothering him he has to reset the machine. Otherwise CPAP therapy has been affecting beneficial. He does use an N20 mask. I do see with the escape air is coming out of the from the mask. I did provide him with an N30 I mask that allows on last the [place] of the air so hopefully his 1 be affected by a. He tolerated the mask well in the office. He stated I small mask very well. The pressures were adjusted as well from CPAP of 7 to a CPAP APAP 4-6. His AHI was down to 0. He as far as his chest x-ray back in March it was our read as no acute disease. Therefore no edema imaging is warranted. His breathing is okay right now. Will have him come back in the winter time with pulmonary function studies. 11/25/2023 the patient is here for a pulmonary follow-up visit. The patient has had a hard time since the fall. He developed COVID-19 and subsequently after that developed a worsening cough and shortness of breath. It was hard for him to go 1 flight of stairs. The patient still struggles with that. Because of the cough was so persistent he was not able to uses CPAP regularly. Therefore, he was not been using it. Did get a [facility] from [facility] that he had to use it otherwise will going to take it away. He did bring the machine in and we did download the data. The last 30 days he used it about 90% of the time in is average uses definitely more than 4 hours. His AHI is down to 0.3 and therefore the therapy has been affecting beneficial. I did call [facility] to make sure that the machine does not get taking away. In the meantime he did undergo pulmonary function studies. He appears to have restrictive ventilatory defect with a moderate diffusion impairment. This may have been the result of his underlying COVID infection back in the fall. Still the patient also has pulmonary nodules and has had some weight loss. Therefore to address the pulmonary nodules the restrictive lung disease and the weight loss will request a CT scan of the chest at this time. The patient is also concerned because his brother recently was diagnosed with stage IV lung cancer. 04/20/2024 the patient is here for a pulmonary follow-up visit. 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 It is very painful and swollen. He did have a biopsy. The patient has not been able to use his CPAP because of the cancer in his year and now is going to surgery. I did reach out to [facility] to explain to them that in view of the ear cancer and not able to wear the head gear will going to have to hold the PAP therapy at this time. He does have significant sleep apnea and he is struggling with daytime drowsiness now that he has not using it. His Watkins score is elevated 1124. Therefore he definitely needs to use the CPAP right now with his ear cancer and swelling around it in be impossible for him to wear the head gear. Does no other mask head gear that he can wear based on the location of the cancer. The patient also had a CT scan of the chest as a follow-up for his CT scan back in 12/29/2023 where showed a 7 mm pulmonary nodule in the right lower lobe that was increasing in size. He did have a recent CT scan we did review it although has not been officially read yet. It appears that the right lower lobe pulmonary nodule has increased further and size now measuring little bit more than 8 mm in size. Will wait for the final read but if the reading is consistent with the increase into 8 mm in size then we will request a PET scan to further address the possibility of hypermetabolic lesion and cancer. The patient will undergo surgery for his ear and skin cancer in the coming weeks. And then he will also need Plastic surgery. He has a lot going on as his brother recently also from stage IV renal cell carcinoma. After the final report of the CT scan call him and let him know either we are going to do a PET scan measuring 8 mm in size or larger or if it appears to be stable to the radiologist points review then will repeat the CT scan in 3 months. 07/26/2024 the patient is here for pulmonary follow-up visit. Since we last spoke he did have his surgery for his squamous cell carcinoma of the skin of the left ear. Ultimately had to undergo plastic surgery. It was a complex surgery lasting about 5 hours. They had a graft taken from his left thigh. The area still healing. His ear canals pretty close after the surgery. He did go to [place] to see if he need radiation but due to the fact that the recurrence rate would only be about 6-8% it was decided to hold off therapy. The patient has been doing well otherwise. He had a CT scan of the chest back in 04/28/2024. It. That the pulmonary nodule had not changed still 7 mm in size. Therefore we held on any additional testing at that point. More recently in May the patient did have a CT scan of the chest at [facility]. Based on the history the cancer and the size of the nodule which is intermediate in size he should get a CT scan 6 months from his last 1. Therefore will plan to do that at [facility] to try to maintain the CT scans closer to his oncologist. He was also on happy with the fact that it took so long for the CT scan to be read in the 1st place. The patient has not been able to use his CPAP because of his ear surgery. Therefore he is waking up tired. His Watkins score is elevated 11/24. We did talk about alternatives to CPAP such as a mandibular advancement device. He will talk to his dentist regarding that. In meantime will try positional therapy. But, right now CPAP is not recommended based on his surgery. 01/03/2025 the patient is here for a pulmonary follow-up visit. 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 He is going to start immune therapy and subsequently after that will have surgery in [place]. He was told that this is potentially curative so he is reassured. In the meantime the found other little spots with squamous cell carcinoma and he will need to have surgery for those skin cancers as well. From a CPAP standpoint he has some difficulties tolerating the mask because of the CT skin cancer of his ear. Will did provide him with an AirTouch N30i mask medium that felt well and did not touch his ear. I am hoping that he tolerates this better. He is also complaining of a dry persistent cough. Moderate severity. He does have a postnasal drip consistent with upper airway cough syndrome. He has been using fluticasone and also ipratropium nasal spray. Can increase the ipratropium nasal spray for now. He is also having some wheezing which may be worsening due to the new therapy so therefore give him an inhaler. He can also use some codeine cough syrup that will help him with the cough and also provide some relief. 06/28/2025 the patient is here for a pulmonary follow-up visit. He is status post his immune therapy and also surgery for his head and neck cancer. Unfortunately he did have some positive lymph nodes. Therefore, he did receive radiation therapy. He has now completed that. Still having difficulty swallowing. In the meantime he is also feeling some difficulty with back pain and a lumbar disc disease. Currently using walker. Breathing lopez he seems to be doing okay although he has a congested cough. [id number] severity. Likely related to component of sinusitis. In addition to that he has been using his CPAP. He has been using nasal cradle. Although he is taking significant amount of air to his mouth. He does open his mouth significantly at nighttime. He is a mouth breather. Therefore, he has a fullface mask. I did have an F20 large air Touch foam mask. He did try he tolerated it well. Hopefully does better with this mask. He will continue with current respiratory therapy and he will start using the fullface mask. For follow-up in the springtime once he gets his PET scan he will get a some copies of the results in order to make sure get the results. 08/24/2025 the patient is here for hospital follow-up visit. Apparently back in June and July he has significant adverse effects from the radiation therapy for his cancer. He has significant mucositis and not able to eat. He lost significant weight. He started developing cough and was admitted to the hospital at [facility] with pneumonia. He did have a CT scan of the chest. Will wait for those results. He was treated and released. He has been able to eat better and he has gained some weight. He still has a cough. Yellowish phlegm. Moderate severity. The mucus is loose. He did go to [facility] and he did have a chest x-ray. I do have the report was done early August demonstrating a left lower lobe airspace disease suggesting pneumonia. He completed a course of azithromycin and cephalosporin. He feels about the same. Today his will pressures the little on the low side. He is trying to take by mouth. His mouth sores hard for improved after using his Wendi and also dexamethasone rinses. He was also using magic mouthwash. Will try to get a sputum culture today. Will also review the CAT scan from [facility] that he had back in June and July. She probably need a repeat CAT scan in view of the persistent airspace disease. [facility] Medical History (Updated 08/24/25 @ 20:35 by Grover Barbosa MD) Squamous cell skin cancer, earlobe Chronic restrictive lung disease Chronic cough Weight loss Splenomegaly Polycythemia Pulmonary nodule CHICO on CPAP Chronic allergic rhinitis Social History Patient Tobacco Use Status: Never used Tobacco Review of Systems Const Reports daytime sleepiness, Reports difficulty sleeping, Denies night sweats and Reports weight loss ENT Reports as per HPI, Denies change in voice, Reports dysphagia, Denies lip swelling, Reports nasal congestion, Reports nasal discharge, Reports neck pain, Reports odynophagia, Reports post nasal drip and Denies tongue swelling Card Denies chest pain and Reports dyspnea on exertion Resp Reports cough and Reports dyspnea on exertion GI Denies abdominal pain, Reports dysphagia and Reports odynophagia Musc Denies no additional complaints, Reports abnormal gait, Reports back pain, Reports neck pain, Reports radiating pain into limb and Reports tingling Skin/Breast Reports lesions Neuro Denies Neuro-related abnormal movements, Reports abnormal gait, Reports tingling and Reports paresthesias Psych Denies no additional complaints Asa/Lymph Denies easy bleeding and Denies lymphadenopathy Aller/Immun Denies lip swelling and Denies tongue swelling Physical Exam Vital Signs: Last Vital Signs Pulse 78 08/24/25 08:42 BP 100/40 L 08/24/25 08:42 Pulse Ox 98 08/24/25 08:42 Oxygen Delivery Method Room Air 08/24/25 08:42 BMI result Body Mass Index 23.6 Const General: alert HEENT Ears: external ear abnormal auricular tenderness, pain with movement of external ear and other and other (post op changes on the left side) Eyes Pupils: Equal, round and reactive pupils present Neck Neck: Yes submandibular swelling Chest Chest palpation & inspection: normal inspection of the chest Resp Effort & Inspection: normal respiratory effort Auscultation: no wheezes and diminished lung sounds Cardio Rate: regular rate Rhythm: regular rhythm Heart sounds: S1 normal heart sound present and S2 normal heart sound present GI Palpation (GI): Soft to palpation and nontender Auscultation: normal bowel sounds Skin General skin exam: rashes and/or lesions noted Neuro Cranial nerves: Yes Equal, round and reactive pupils present Assessment & Plan Assessment & Plan (1) Chronic restrictive lung disease: Code(s): J98.4 - Other disorders of lung Category: Medical (2) Pulmonary nodule: Code(s): R91.1 - Solitary pulmonary nodule Category: Medical (3) CHICO on CPAP: Code(s): G47.33 - Obstructive sleep apnea (adult) (pediatric); Z99.89 - Dependence on other enabling machines and devices Category: Medical (4) Chronic allergic rhinitis: Code(s): J30.9 - Allergic rhinitis, unspecified Category: Medical (5) Chronic cough: Code(s): R05.3 - Chronic cough Category: Medical (6) Squamous cell skin cancer, earlobe: Comment: with local spread to the parotid gland and adjacent LNs Code(s): C44.221 - Squamous cell carcinoma of skin of unspecified ear and external auricular canal Category: Medical Qualifiers: Laterality: left Qualified Code(s): C44.229 - 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 and external auricular canal (7) Pneumonia: Code(s): J18.9 - Pneumonia, unspecified organism Category: Medical Qualifiers: Pneumonia type: due to unspecified organism Laterality: left Lung location: lower lobe of lung Qualified Code(s): J18.9 - Pneumonia, unspecified organism Plan start Bactrim Sputum culture CT chest APAP 4-6. needs Chin strap Continue nasal fluticasone nasal spray, ipratropium nasal spray cough medicine JEAN as needed pseudophed as needed for nasal congestion F/U 3-4 weeks Orders: Orders CT chest wo IV con Today C44.229 - 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 and external auricular canal, J18.9 - Pneumonia, unspecified organism, R91.1 - Solitary pulmonary nodule Sputum Cult + Gram stain Today R91.1 - Solitary pulmonary nodule Sputum Cult + Gram stain Today J18.9 - Pneumonia, unspecified organism Medications: New sulfamethoxazole-trimethoprim 800-160 mg (Bactrim DS) 1 tab PO BID 42 tabs 0RF 21 days pseudoephedrine HCl ER 120 mg PO Q12H 60 tabs 1RF 30 days Coding Level of Care Code Est Pt Level 5 (87180) Complex EM visit Add On G2211 Diagnoses Chronic restrictive lung disease J98.4 Pulmonary nodule R91.1 CHICO on CPAP G47.33; Z99.89 Chronic allergic rhinitis J30.9 Chronic cough R05.3 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lobe C44.229 Laterality: left Pneumonia of left lower lobe due to infectious organism J18.9 Pneumonia type: due to unspecified organism Laterality: left Lung location: lower lobe of lung Time Spent (min) 60
--- OUTSIDE RECORDS SUMMARY | 2025-08-24 09:24 | XMS_ITS | Encounter Summary ---
Author Organization [facility] Address [address] [place] [address] Care Team Providers Care Dairy Nutritionist Name Role Phone Mariely Vargas MD Primary Care Provider [phone] Encounter Details Date Type Department Care Team (Late st Contact Info) Description 08/23/2025 Telephone Gastroenterology - [address] [place] [phone] Jana Davis MD [address] [place], [place] [phone] Social History Tobacco Use Types Packs/Day Years Used Date Smoking Tobacco: Never Smokeless Tobacco: Never Alcohol Use Standard Drinks/Week Comments No 0 (1 standard drink = 0.6 oz pur e alcohol) Housing Instability Answer Date Recorde d Are you worried that in the next 2 months you may not have stable housing? No 06/29/2025 Food Access & Nutrition Answer Date Rec orded Do you have access to a vari ety of food including fruits and vegetables? Yes 06/29/2025 Access to Healthcare Answer Date Record ed Within the last 3 months, steff meneses many times did you visit the emergency department for your medical care? 0 06/29/2025 Health Literacy Answer Date Recorded How often do you need to hav e someone help you when you read instructions, pamphlets, or other written material from your doctor or pharmacy? Never 06/29/2025 Caregiver: How often do you need to have someone help you when you read instructions, pamphlets, or other written material from your doctor or pharmacy? Not on file 06/29/2025 Financial Risk Answer Date Recorded How hard is it for you to pa y for the very basics like food, housing, medical care, and air conditioning / heating? Not very hard 06/29/2025 Transportation Answer Date Recorded Has the lack of transportati on kept you from meetings, work, or from getting things needed for daily living? No Has the lack of transportati on kept you from medical appointments or from getting medications? No 06/29/2025 Social Isolation Answer Date Recorded How often do you feel lonely or isolated from th ose around you? Never 06/29/2025 Food Risk Answer Date Recorded Within the past 12 months we worried whether our food would run out before we got money to buy more. Never true 07/28/2025 Within the past 12 months th e food we bought just didn't last and we didn't have money to get more. Never true 07/28/2025 Dependent Care Answer Date Recorded Do you need help finding or paying for care for your loved ones. For example, child protective investigator or elderly care for an older adult? No 06/29/2025 Education Answer Date Recorded Do you think completing more education or training, like finishing a GED, going to college, or learning a trade, would be helpful for you? No 06/29/2025 Employment and Income Answer Date Recor ded During the last four weeks, have you been actively looking for work? No 06/29/2025 Living Situation Answer Date Recorded What is your living situation? Unrecognized valu e 06/29/2025 Interpersonal Safety Answer Date Record ed Physical Abuse Unrecognized value 07/27/2025 Verbal Abuse Unrecognized value 07/27/2025 Sex and Gender Information Value Date Recorded Sex Assigned at Male 04/21/2025 5:24 PM EDT Legal Sex Male 3:50 AM EST Gender Identity Male 04/21/2025 5:24 PM EDT Sexual Orientation Straight 06/29/2025 12 :25 PM EDT documented as of this encounter Functional Status * Are you deaf or do you have serious difficulty hearing? Answer Date of Assessment Author No 02/04/2025 5:49 AM EDT Madison Clarke RN * Are you blind or do you have serious difficulty seeing, even when wearing glasses? Answer Date of Assessment Author No 02/04/2025 5:49 AM EDT Madison Clarke RN * Do you have serious difficulty walking or climbing stairs? Answer Date of Assessment Author No 02/04/2025 5:49 AM EDT Madison Clarke RN * Do you have serious difficulty dressing or bathing? Answer Date of Assessment Author No 02/04/2025 5:49 AM EDT Madison Clarke RN * Because of a physical, mental, or emotional condition, do you have serious difficulty doing errandsalone such as visiting the doctor? Answer Date of Assessment Author No 02/04/2025 5:49 AM EDT Madison Clarke RN documented as of this encounter Mental Status * Because of a physical, mental, or emotional condition, do you have serious difficulty concentrating, remembering, or making decisions? (5 years old or older) Answer Entry Date Author No 02/04/2025 5:49 AM EDT Madison Clarke RN documented in this encounter Progress Notes * Shruthi Marie - 08/23/2025 9:23 AM EDT CANCELLED. * Etta Melton - 08/23/2025 9:07 AM EDT Pt is calling to cancel pt colon/egd on 08/31 because he is having side effect from neck radiation and is losing weight. 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
--- OUTSIDE RECORDS SUMMARY | 2025-08-24 09:24 | XMS_ITS ---
Author Name [facility] Care Team Organization Name Specialty Phone Email Start Date End Da te [facility] Juan Manuel Green Primary [facility] 09/16/2022 024
--- OUTSIDE RECORDS SUMMARY | 2025-08-24 09:25 | XMS_ITS | Patient Health Record ---
Author Organization [employer] [facility] Address [address] [place] [address] Care Team Providers Care Animal Sitter Name Role Phone TROY LOBO Primary Care Provider Alajo Aroosa Unavailable [phone] Elsa Talamantes Unavailable [phone] Allergies Allergen (clinical drug ingredient) Drug/Non Drug Allergy documented on EMR Reaction Allergy Type Onset Date Status Psyllium Unknown Drug Allergy Active ciprofloxacin Ciprofloxacin Unknown Drug Allergy Active doxycycline Doxycycline Unknown Drug Allergy Act eden Penicillin Unknown Drug Allergy Active Results Component Value Reference Range Notes MAGNESIUM Reviewed date:02/19/2025 11:41:39 AM Interpretation: Performing Lab: Notes/Report: Magnesium 1.9 1.9-2.6 mg/dL Hemolysis pres ent THYROID STIMULATING HORMONE Reviewed date:02/19/2025 11:42:13 AM Interpretation: Performing Lab: Notes/Report: TSH 3.99 0.40-4.00 mcIU/mL THYROXINE FREE Reviewed date:02/20/2025 04:36:48 PM Interpretation: Performing Lab: Notes/Report: Free T4 1.26 0.70-1.80 ng/dL COMPREHENSIVE METABOLIC PANE L Reviewed date:02/19/2025 11:42:36 AM Interpretation: Performing Lab: Notes/Report: Sodium 134 133-145 mmol/L Potassium 5.2 3.5-5.5 mmol/L Hemolysis pre sent Chloride 100 96-110 mmol/L CO2 28 21-32 mmol/L Anion Gap 6 3-11 Glucose 134 70-100 mg/dL BUN 18 5-25 mg/dL Creatinine 0.69 0.70-1.30 mg/dL eGFR 98 >=60 mL/min/1.73m2 Calculation based on the?Chronic Kidney Disease Epidemiology Collaboration (CKD-EPI) equation refit?without adjustment for race. BUN/Creatinine Ratio 26.1 Calcium 9.2 8.5-10.5 mg/dL AST (SGOT) 40 10-42 unit/L Hemolysis prese nt ALT (SGPT) 24 10-60 unit/L Alkaline Phosphatase 65 42-121 unit/L Total Protein 6.4 6.0-8.0 g/dL Albumin 3.9 3.2-5.0 g/dL Total Bilirubin 1.1 0.0-1.4 mg/dL CBC WITH AUTO DIFFERENTIAL Reviewed date:02/19/2025 11:41:23 AM Interpretation: Performing Lab: Notes/Report: WBC 13.8 4.8-10.8 K/mcL RBC 3.70 4.50-5.50 M/mcL Hemoglobin 10.6 13.5-17.5 g/dL Hematocrit 33.4 42.0-54.0 % MCV 89.8 79.0-98.0 FL MCH 28.5 27.0-32.0 pcg MCHC 31.7 32.0-37.0 g/dL RDW 18.8 11.0-15.0 % Platelets 348 130-400 K/mcL MPV 10.7 7.0-11.0 FL NRBC 0.7 <1.0 % NRBC Absolute 0.09 <0.10 K/mcL RETICULOCYTE COUNT Reviewed date:06/29/2025 07:43:35 AM Interpretation: Performing Lab: Notes/Report: Retic Ct Abs 0.050 0.030-0.090 M/mcL Retic Ct Pct 1.7 0.7-1.7 % Immature Retic Fract 28.7 2.3-15.9 % Reticulocyte Hemoglobin 25.1 >29.0 pcg IRON AND TIBC Reviewed date:06/29/2025 03:11:00 PM Interpretation: Performing Lab: Notes/Report: Iron 17 50-160 mcg/dL TIBC 179 250-450 mcg/dL Iron Saturation 9 20-50 % VITAMIN B12 AND FOLATE Reviewed date:06/29/2025 03:10:45 PM Interpretation: Performing Lab: Notes/Report: Vitamin B-12 1064 250-900 pcg/mL Folate >20.0 2.8-17.0 ng/ml CULTURE BLOOD Reviewed date:07/04/2025 05:23:18 PM Interpretation: Performing Lab: Notes/Report: Culture, Blood No growth at 5 days CORTISOL Reviewed date:06/29/2025 03:10:41 PM Interpretation: Performing Lab: Notes/Report: CORTISOL REFERENCE RANGE 8 AM SPEC: 5.0-23.0 mcg/dL 4 PM SPEC: 3.0-16.0 mcg/dL 8 PM SPEC: <5.0 mcg/dL Cortisol 21.8 HEMOGLOBIN AND HEMATOCRIT Reviewed date:06/29/2025 07:43:32 AM Interpretation: Performing Lab: Notes/Report: Hemoglobin 8.3 13.5-17.5 g/dL Hematocrit 26.3 42.0-54.0 % CULTURE BLOOD Reviewed date:07/04/2025 05:23:13 PM Interpretation: Performing Lab: Notes/Report: Culture, Blood No growth at 5 days CULTURE BLOOD Reviewed date:08/01/2025 07:47:19 AM Interpretation: Performing Lab: Notes/Report: Culture, Blood No growth at 5 days CULTURE BLOOD Reviewed date:08/01/2025 07:47:13 AM Interpretation: Performing Lab: Notes/Report: Culture, Blood No growth at 5 days XR CHEST 1 VIEW Reviewed date:06/29/2025 03:11:25 PM Interpretation: Performing Lab: Notes/Report: Note See Note [facility], a member of [employer] Patient Name: CLAY JOHNSON Date of : 1950 Reason for Exam: AMS Exam Date: 06/28/2025 [id number] EST Report Status: Final Ordering Provider: MARVIN NICOLE PCP: TROY LOBO XR CHEST 1 VIEW INDICATION: Altered mental status TECHNIQUE: XR CHEST 1 VIEW COMPARISON: 02/04/2025 IMPRESSION: FINDINGS/IMPRESSION: Left retrocardiac opacity suspicious for pneumonia. No pleural effusion or pneumothorax. Cardiac silhouette and bones are normal. -------- FINAL REPOR T -------- Dictated By: BORIS PRUITT Dictated Date: 06/29/2025 08:51 ET Assigned Physician: BORIS PRUITT Reviewed and Electronically Signed By: BORIS PRUITT Signed Date: 08:51 ET Workstation ID: [id number] Transcribed By: Self Edit Transcribed Date: 06/29/2025 08:51 ET LACTATE DEHYDROGENASE Reviewed date:03/17/2025 12:18:49 PM Interpretation: Performing Lab: Notes/Report: LDH 724 120-246 unit/L COMPREHENSIVE METABOLIC PANE L Reviewed date:03/17/2025 12:18:44 PM Interpretation: Performing Lab: Notes/Report: Sodium 136 133-145 mmol/L Potassium 3.9 3.5-5.5 mmol/L Chloride 106 96-110 mmol/L CO2 23 21-32 mmol/L Anion Gap 7 3-11 Glucose 229 70-100 mg/dL BUN 14 5-25 mg/dL Creatinine 0.70 0.70-1.30 mg/dL eGFR 97 >=60 mL/min/1.73m2 Calculation based on the Chronic Kidney Disease Epidemiology Collaboration (CKD-EPI) equation refit without adjustment for race. BUN/Creatinine Ratio 20.0 Calcium 8.9 8.5-10.5 mg/dL AST (SGOT) 17 10-42 unit/L ALT (SGPT) 21 10-60 unit/L Alkaline Phosphatase 62 42-121 unit/L Total Protein 6.1 6.0-8.0 g/dL Albumin 3.8 3.2-5.0 g/dL Total Bilirubin 0.8 0.0-1.4 mg/dL FERRITIN Reviewed date:03/17/2025 12:18:46 PM Interpretation: Performing Lab: Notes/Report: Ferritin 222 26-388 ng/mL CBC WITH AUTO DIFFERENTIAL Reviewed date:03/17/2025 12:25:05 PM Interpretation: Performing Lab: Notes/Report: WBC 15.1 4.8-10.8 K/mcL RBC 3.70 4.50-5.50 M/mcL Hemoglobin 10.4 13.5-17.5 g/dL Hematocrit 33.7 42.0-54.0 % MCV 90.6 79.0-98.0 FL MCH 28.0 27.0-32.0 pcg MCHC 30.9 32.0-37.0 g/dL RDW 19.7 11.0-15.0 % Platelets 433 130-400 K/mcL MPV 11.7 7.0-11.0 FL NRBC 0.5 <1.0 % NRBC Absolute 0.07 <0.10 K/mcL LACTATE DEHYDROGENASE Reviewed date:03/09/2025 07:30:43 AM Interpretation: Performing Lab: Notes/Report: LDH 712 120-246 unit/L PROSTATE SPECIFIC ANTIGEN DI AGNOSTIC Reviewed date:03/09/2025 07:30:31 AM Interpretation: Performing Lab: Notes/Report: The Siemens Advia Shopparityaur Chemiluminescent Immunoassay is used. Results obtained with different assay methods or kits cannot be used interchangeably. Results cannot be interpreted as absolute evidence of the presence or absence of malignant disease. PSA <0.06 0.00-4.00 ng/mL COMPREHENSIVE METABOLIC PANE L Reviewed date:03/09/2025 07:30:40 AM Interpretation: Performing Lab: Notes/Report: Sodium 137 133-145 mmol/L Potassium 4.5 3.5-5.5 mmol/L Chloride 103 96-110 mmol/L CO2 27 21-32 mmol/L Anion Gap 7 3-11 Glucose 168 70-100 mg/dL BUN 17 5-25 mg/dL Creatinine 0.74 0.70-1.30 mg/dL eGFR 96 >=60 mL/min/1.73m2 Calculation based on the?Chronic Kidney Disease Epidemiology Collaboration (CKD-EPI) equation refit?without adjustment for race. BUN/Creatinine Ratio 23.0 Calcium 9.0 8.5-10.5 mg/dL AST (SGOT) 15 10-42 unit/L ALT (SGPT) 22 10-60 unit/L Alkaline Phosphatase 70 42-121 unit/L Total Protein 6.5 6.0-8.0 g/dL Albumin 4.0 3.2-5.0 g/dL Total Bilirubin 0.7 0.0-1.4 mg/dL FERRITIN Reviewed date:03/09/2025 07:30:37 AM Interpretation: Performing Lab: Notes/Report: Ferritin 260 26-388 ng/mL CBC WITH AUTO DIFFERENTIAL Reviewed date:03/08/2025 05:32:05 PM Interpretation: Performing Lab: Notes/Report: WBC 15.2 4.8-10.8 K/mcL RBC 3.80 4.50-5.50 M/mcL Hemoglobin 10.6 13.5-17.5 g/dL Hematocrit 34.8 42.0-54.0 % MCV 92.3 79.0-98.0 FL MCH 28.1 27.0-32.0 pcg MCHC 30.5 32.0-37.0 g/dL RDW 19.4 11.0-15.0 % Platelets 457 130-400 K/mcL MPV 11.1 7.0-11.0 FL NRBC 0.6 <1.0 % NRBC Absolute 0.09 <0.10 K/mcL VAS US DUPLEX LOWER EXT VENO US LEFT Reviewed date:03/06/2025 05:18:24 PM Interpretation: Performing Lab: Notes/Report: Note See Note [facility], a member of [facility] Patient Name: CLAY JOHNSON Date of : 1950 Reason for Exam: edema Exam Date: 03/06/2025 [id number] EST Report Status: Final Ordering Provider: JOHN MARTINS PCP: TROY LOBO History: Left lower extremity pain and swelling. Findings: Duplex and color Doppler imaging of the left lower extremity was performed from the inguinal ligament to the popliteal fossa. The common femoral, femoral and popliteal veins are patent and compress completely. Normal spontaneous and phasic venous flow is demonstrated with Doppler. There is normal flow augmentation with calf compression. The deep calf veins, as visualized, are compressible IMPRESSION: Impression: No evide nce of deep vein thrombosis in the left femoral-popliteal venous segment. Telerad SONIA ([id number]) -------- FINAL REPOR T -------- Dictated By: Alanis Andrew i Dictated Date: 03/06/2025 11:02 ET Assigned Physician: Alanis Stout Reviewed and Electronically Signed By: Alanis Stout Signed Date: 025 11:03 ET Workstation ID: [id number] Transcribed By: Self Edit Transcribed Date: 03/06/2025 11:02 ET XR ABDOMEN 1 VIEW Reviewed date:03/06/2025 05:18:11 PM Interpretation: Performing Lab: Notes/Report: Note See Note [facility] a member of [facility] Patient Name: CLAY JOHNSON Date of : 1950 Reason for Exam: CALCULUS OF KIDNEY Exam Date: 03/06/2025 [id number] EST Report Status: Final Ordering Provider: PATRICE TORRES PCP: SIMMONS GUL HISTORY: The patient is a 74-year-old male with history of renal calculus. 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 Again seen are mild degenerative changes of the lumbar spine and included portion of the thoracic spine. The bowel gas pattern is nonobstructive. There is a 4.6 mm diameter oval calcification projecting over the lower pole of the right kidney consistent with a calculus or small cluster of calculi, mildly increased in size from 2.8 mm on the prior study. No other radiopaque calculus is seen. No mass is demonstrated. IMPRESSION: Nonobstructive bowel gas pattern. A 4.6 mm diameter right kidney lower pole calculus or cluster of calculi is present, mildly increased in size from 2.8 mm on 01/01/2018. Code 54119 -------- FINAL REPOR T -------- Dictated By: Hunter Piña Dictated Date: 03/06/2025 11:22 ET Assigned Physician: Hunter Piña Reviewed and Electronically Signed By: Hunter Piña Signed Date: 025 11:26 ET Workstation ID: [id number] Transcribed By: Self Edit Transcribed Date: 03/06/2025 11:22 ET CULTURE URINE Reviewed date:02/24/2025 03:31:12 PM Interpretation: Performing Lab: Notes/Report: Specimen Source: Urine Collected: Feb 17, 2025 08:51:00 Organism: KLEBSIELLA PNEUMONIAE Antibiotics DISK DIFFUSION Interpretation Amikacin Islt KB S Amoxicillin+Clav Islt KB I Ampicillin+Sulbac Islt KB R ceFAZolin Islt KB R Cefepime Islt KB S-DD cefOXitin Islt KB R cefTAZidime Islt KB S cefTRIAXone Islt KB S Ciprofloxacin Islt KB I Gentamicin Islt KB S levoFLOXacin Islt KB I Meropenem Islt KB I Nitrofurantoin Islt KB R Pip+Tazo Islt KB S-DD TMP SMX Islt KB R Culture, Urine KLEBSIELLA PNEUMONIAE >100,000 CFU/mL Klebsiella pneumoniae This is an edited result. Previous organism was Gram negative bacilli on 02/18/2025 at 1013 EDT. Report Susceptibility Report BASIC METABOLIC PANEL Reviewed date:06/29/2025 03:11:05 PM Interpretation: Performing Lab: Notes/Report: Sodium 136 133-145 mmol/L Potassium 4.4 3.5-5.5 mmol/L Chloride 104 96-110 mmol/L CO2 27 21-32 mmol/L Anion Gap 5 3-11 Glucose 120 70-100 mg/dL BUN 12 5-25 mg/dL Creatinine 0.75 0.70-1.30 mg/dL eGFR 95 >=60 mL/min/1.73m2 Calculation based on the Chronic Kidney Disease Epidemiology Collaboration (CKD-EPI) equation refit without adjustment for race. BUN/Creatinine Ratio 16.0 Calcium 8.3 8.5-10.5 mg/dL TYPE AND SCREEN Reviewed date:06/29/2025 07:43:25 AM Interpretation: Performing Lab: Notes/Report: ABO Group A Rh Type Positive Antibody Screen Negative CBC WITH AUTO DIFFERENTIAL Reviewed date:06/29/2025 03:10:55 PM Interpretation: Performing Lab: Notes/Report: WBC 13.3 4.8-10.8 K/mcL RBC 3.20 4.50-5.50 M/mcL Hemoglobin 8.6 13.5-17.5 g/dL Hematocrit 27.6 42.0-54.0 % MCV 85.4 79.0-98.0 FL MCH 26.6 27.0-32.0 pcg MCHC 31.2 32.0-37.0 g/dL RDW 20.4 11.0-15.0 % Platelets 341 130-400 K/mcL MPV 10.3 7.0-11.0 FL NRBC 0.2 <1.0 % NRBC Absolute 0.03 <0.10 K/mcL FERRITIN Reviewed date:06/29/2025 03:10:49 PM Interpretation: Performing Lab: Notes/Report: Ferritin 261 26-388 ng/mL CT CHEST WO CONTRAST Reviewed date:06/29/2025 03:10:35 PM Interpretation: Performing Lab: Notes/Report: Note See Note [facility] a member of [employer] Patient Name: CLAY JOHNSON Date of : 1950 Reason for Exam: Dyspnea, chronic, unclear etiology Exam Date: 06/29/2025 [id number] EST Report Status: Final Ordering Provider: HEATHER CAMERON PCP: TROY LOBO INDICATION: Shortnes s of breath with left lower lobe infiltrate suspected on portable chest radiograph TECHNIQUE: CT scan o f the chest obtained without contrast. Scanner: Blue [employer]ado on [employer] 128 slice VCT Dose reduction technique: ASIR (Adaptive statistical iterative reconstruction) and/or AEC (automated exposure control) Dose: total exam DLP 408 mGY per cm COMPARISON: Chest CT from February 04, 2025. Chest x-ray from June 28, 2025 reviewed. FINDINGS: Lung gamez demonstr ate pulmonary consolidation in the left lower lobe consistent with pneumonia. Trace left pleural effusion. Minimal scarring noted within the right lung base with mild atelectatic changes. Similar multiple tin y mediastinal nodes as well as enlarged node posterior to the upper thoracic esophagus measuring 3.5 cm x 1.5 cm x 1 cm, unchanged. Trachea and esophagu s are within normal limits. Heart normal in size and shape without pericardial effusion. Unopacified mediasti nal vascular structures are grossly normal in course and caliber for the patient's age. Bony structures of t he thorax are within normal limits for the patient's age. Splenomegaly again noted measuring up to 20 cm axially, similar to the prior study. Upper aspect of IVC filter noted. Partially imaged 3 mm nonobstructing right renal stone. Multiple calcified gallstones within decompressed gallbladder. IMPRESSION: Left lower lobe pneumonia with trace left effusion. -------- FINAL REPOR T -------- Dictated By: Desire De La Torre Dictated Date: 06/29/2025 12:34 ET Assigned Physician: Desire De La Torre Reviewed and Electronically Signed By: Desire De La Torre Signed Date: 025 12:45 ET Workstation ID: [id number] Transcribed By: Self Edit Transcribed Date: 06/29/2025 12:34 ET PATHOLOGIST REVIEW BLOOD SME AR Reviewed date:01/30/2025 04:16:34 PM Interpretation: Performing Lab: Notes/Report: Pathologist Review Blood Smear See Report Anemia and neutrophilic leukocytosis with tear drop erythrocytes, rare blasts, myelocytes, metamyelocytes, and scattered large platelets The features are similar to previous review from 01/10/25 and are again consistent with the patient's history of a myeloproliferative neoplasm LACTATE DEHYDROGENASE Reviewed date:01/30/2025 01:01:41 PM Interpretation: Performing Lab: Notes/Report: LDH 782 120-246 unit/L COMPREHENSIVE METABOLIC PANE L Reviewed date:01/30/2025 01:01:44 PM Interpretation: Performing Lab: Notes/Report: Sodium 139 133-145 mmol/L Potassium 4.2 3.5-5.5 mmol/L Chloride 106 96-110 mmol/L CO2 29 21-32 mmol/L Anion Gap 4 3-11 Glucose 173 70-100 mg/dL BUN 14 5-25 mg/dL Creatinine 0.75 0.70-1.30 mg/dL eGFR 95 >=60 mL/min/1.73m2 Calculation based on the Chronic Kidney Disease Epidemiology Collaboration (CKD-EPI) equation refit without adjustment for race. BUN/Creatinine Ratio 18.7 Calcium 8.8 8.5-10.5 mg/dL AST (SGOT) 20 10-42 unit/L ALT (SGPT) 22 10-60 unit/L Alkaline Phosphatase 61 42-121 unit/L Total Protein 6.4 6.0-8.0 g/dL Albumin 3.9 3.2-5.0 g/dL Total Bilirubin 0.9 0.0-1.4 mg/dL CBC WITH AUTO DIFFERENTIAL Reviewed date:01/30/2025 01:01:38 PM Interpretation: Performing Lab: Notes/Report: WBC 11.7 4.8-10.8 K/mcL RBC 3.30 4.50-5.50 M/mcL Hemoglobin 9.8 13.5-17.5 g/dL Hematocrit 32.0 42.0-54.0 % MCV 96.4 79.0-98.0 FL MCH 29.5 27.0-32.0 pcg MCHC 30.6 32.0-37.0 g/dL RDW 19.8 11.0-15.0 % Platelets 336 130-400 K/mcL MPV 10.5 7.0-11.0 FL NRBC 1.3 <1.0 % NRBC Absolute 0.15 <0.10 K/mcL LACTATE DEHYDROGENASE Reviewed date:01/20/2025 02:02:52 PM Interpretation: Performing Lab: Notes/Report: LDH 697 120-246 unit/L COMPREHENSIVE METABOLIC PANE L Reviewed date:01/20/2025 02:03:00 PM Interpretation: Performing Lab: Notes/Report: Sodium 143 133-145 mmol/L Potassium 4.4 3.5-5.5 mmol/L Chloride 110 96-110 mmol/L CO2 26 21-32 mmol/L Anion Gap 7 3-11 Glucose 145 70-100 mg/dL BUN 12 5-25 mg/dL Creatinine 0.75 0.70-1.30 mg/dL eGFR 95 >=60 mL/min/1.73m2 Calculation based on the?Chronic Kidney Disease Epidemiology Collaboration (CKD-EPI) equation refit?without adjustment for race. BUN/Creatinine Ratio 16.0 Calcium 8.7 8.5-10.5 mg/dL AST (SGOT) 21 10-42 unit/L ALT (SGPT) 23 10-60 unit/L Alkaline Phosphatase 59 42-121 unit/L Total Protein 6.1 6.0-8.0 g/dL Albumin 3.8 3.2-5.0 g/dL Total Bilirubin 0.8 0.0-1.4 mg/dL HEMOGLOBIN A1C Reviewed date:01/20/2025 02:02:47 PM Interpretation: Performing Lab: Notes/Report: Hemoglobin A1C 6.8 <6.5 % Mean Bld Glu Estim. 148 FERRITIN Reviewed date:01/20/2025 02:02:55 PM Interpretation: Performing Lab: Notes/Report: Ferritin 196 26-388 ng/mL CBC WITH AUTO DIFFERENTIAL Reviewed date:01/20/2025 02:02:49 PM Interpretation: Performing Lab: Notes/Report: WBC 11.1 4.8-10.8 K/mcL RBC 3.30 4.50-5.50 M/mcL Hemoglobin 9.8 13.5-17.5 g/dL Hematocrit 33.3 42.0-54.0 % MCV 100.6 79.0-98.0 FL MCH 29.6 27.0-32.0 pcg MCHC 29.4 32.0-37.0 g/dL RDW 19.8 11.0-15.0 % Platelets 354 130-400 K/mcL MPV 11.9 7.0-11.0 FL NRBC 1.7 <1.0 % NRBC Absolute 0.19 <0.10 K/mcL THYROID STIMULATING HORMONE WITH REFLEX TO FREE T4 AND FREE T3 Reviewed date:06/29/2025 03:10:38 PM Interpretation: Performing Lab: Notes/Report: TSH 2.56 0.40-4.00 mcIU/mL MAGNESIUM Reviewed date:06/29/2025 03:11:10 PM Interpretation: Performing Lab: Notes/Report: Magnesium 1.9 1.9-2.6 mg/dL LACTATE DEHYDROGENASE Reviewed date:01/10/2025 07:32:29 AM Interpretation: Performing Lab: Notes/Report: LDH 634 120-246 unit/L COMPREHENSIVE METABOLIC PANE L Reviewed date:01/10/2025 07:32:33 AM Interpretation: Performing Lab: Notes/Report: Sodium 138 133-145 mmol/L Potassium 4.4 3.5-5.5 mmol/L Chloride 107 96-110 mmol/L CO2 27 21-32 mmol/L Anion Gap 4 3-11 Glucose 171 70-100 mg/dL BUN 14 5-25 mg/dL Creatinine 0.86 0.70-1.30 mg/dL eGFR 91 >=60 mL/min/1.73m2 Calculation based on the Chronic Kidney Disease Epidemiology Collaboration (CKD-EPI) equation refit without adjustment for race. BUN/Creatinine Ratio 16.3 Calcium 9.0 8.5-10.5 mg/dL AST (SGOT) 16 10-42 unit/L ALT (SGPT) 21 10-60 unit/L Alkaline Phosphatase 59 42-121 unit/L Total Protein 6.2 6.0-8.0 g/dL Albumin 3.7 3.2-5.0 g/dL Total Bilirubin 0.7 0.0-1.4 mg/dL FERRITIN Reviewed date:01/10/2025 07:32:26 AM Interpretation: Performing Lab: Notes/Report: Ferritin 193 26-388 ng/mL CBC WITH AUTO DIFFERENTIAL Reviewed date:01/10/2025 07:32:24 AM Interpretation: Performing Lab: Notes/Report: WBC 11.9 4.8-10.8 K/mcL RBC 2.90 4.50-5.50 M/mcL Hemoglobin 9.0 13.5-17.5 g/dL Hematocrit 29.9 42.0-54.0 % MCV 101.7 79.0-98.0 FL MCH 30.6 27.0-32.0 pcg MCHC 30.1 32.0-37.0 g/dL RDW 19.8 11.0-15.0 % Platelets 395 130-400 K/mcL MPV 11.8 7.0-11.0 FL NRBC 1.0 <1.0 % NRBC Absolute 0.12 <0.10 K/mcL XR CHEST 2 VIEWS Reviewed date:07/25/2025 05:25:08 PM Interpretation: Performing Lab: Notes/Report: Note See Note [facility] a member [facility] Patient Name: CLAY JOHNSON Date of : 1950 Reason for Exam: dyspnea Exam Date: 07/25/2025 [id number] EST Report Status: Final Ordering Provider: JOHN MARTINS PCP: TROY LOBO PROCEDURE: PA and lateral radiographs of the chest. HISTORY: dyspnea previous history of pneumonia in June 2025 requiring hospitalization. COMPARISON: 06/28/20. CT 06/29/2025. FINDINGS: There are coarse heterogeneous somewhat linear opacities projecting at the bases on the lateral view, more extensive on the left. Cardiomediastinal contours are normal. The pleural spaces and pulmonary vasculature are normal. IMPRESSION: Coarse heterogeneous opacities projecting over the lung bases on the lateral view, likely residua of pneumonia evident on a 06/29/[address] -------- FINAL REPOR T -------- Dictated By: Nikos Cota Dictated Date: 07/25/2025 09:04 ET Assigned Physician: Nikos Alvarenga Reviewed and Electronically Signed By: Nikos Alvarenga Signed Date: 09:06 ET Workstation ID: [id number] Transcribed By: Self Edit Transcribed Date: 07/25/2025 09:04 ET CBC WITH AUTO DIFFERENTIAL Reviewed date:07/25/2025 05:26:21 PM Interpretation: Performing Lab: Notes/Report: WBC 13.0 4.8-10.8 K/mcL RBC 3.80 4.50-5.50 M/mcL Hemoglobin 9.7 13.5-17.5 g/dL Hematocrit 32.5 42.0-54.0 % MCV 85.5 79.0-98.0 FL MCH 25.5 27.0-32.0 pcg MCHC 29.8 32.0-37.0 g/dL RDW 20.2 11.0-15.0 % Platelets 437 130-400 K/mcL MPV 11.0 7.0-11.0 FL NRBC 0.2 <1.0 % NRBC Absolute 0.03 <0.10 K/mcL Neutrophils Relative 79.7 This is an appended report. These results have been appended to a previously preliminary verified report. Lymphocytes Relative 7.4 This is an appended report. These results have been appended to a previously preliminary verified report. Monocytes Relative 4.9 This is a n appended report. These results have been appended to a previously preliminary verified report. Eosinophils Relative 2.7 This is an appended report. These results have been appended to a previously preliminary verified report. Basophils Relative 0.7 This is a n appended report. These results have been appended to a previously preliminary verified report. Immature Granulocytes Relative 4.6 This is an appended report. These results have been appended to a previously preliminary verified report. Neutrophils Absolute 10.34 1.50-7.00 K/mcL This is an appended report. These results have been appended to a previously preliminary verified report. Lymphocytes Absolute 0.96 1.00-5.00 K/mcL This is an appended report. These results have been appended to a previously preliminary verified report. Monocytes Absolute 0.64 0.20-1.00 K/mcL This i s an appended report. These results have been appended to a previously preliminary verified report. Eosinophils Absolute 0.35 0.00-0.50 K/mcL This is an appended report. These results have been appended to a previously preliminary verified report. Basophils Absolute 0.09 0.00-0.20 K/mcL This i s an appended report. These results have been appended to a previously preliminary verified report. Immature Granulocytes Absolute 0.60 0.00-0.03 K/mcL This is an appended report. These results have been appended to a previously preliminary verified report. FERRITIN Reviewed date:07/25/2025 05:26:12 PM Interpretation: Performing Lab: Notes/Report: Ferritin 346 26-388 ng/mL MAGNESIUM Reviewed date:07/25/2025 05:26:44 PM Interpretation: Performing Lab: Notes/Report: Magnesium 1.8 1.9-2.6 mg/dL IRON AND TIBC Reviewed date:07/25/2025 05:26:09 PM Interpretation: Performing Lab: Notes/Report: Iron 32 50-160 mcg/dL TIBC 204 250-450 mcg/dL Iron Saturation 16 20-50 % MR THORACIC SPINE WO AND W Chris ONTRAST Reviewed date:06/16/2025 04:05:19 PM Interpretation: Performing Lab: Notes/Report: Note See Note [facility] a [facility] Patient Name: CLAY JOHNSON Date of : 1950 Reason for Exam: Paraspinal mass/tumor Exam Date: 06/15/2025 [id number] EST Report Status: Final Ordering Provider: JOHN MARTINS PCP: TROY LOBO PROCEDURE: MRI of th e thoracic spine with intravenous contrast. HISTORY: Paraspinal mass/tumor. COMPARISON: Chest CT 05/20/2024. TECHNIQUE: Sagittal and axial multisequence MRI of the thoracic spine with and without intravenous contrast. IV contrast dose: 17 mL Dotarem from a 20 mL vial with 3 mL discarded. FINDINGS: The spleen is only partially included in the [id number] but appears to be enlarged. There are no other paraspinous soft tissue findings. Alignment is normal. No compression deformity. Diffuse low T1 signal throughout the marrow spaces. No abnormal marrow enhancement. Very mild degenerative changes of the vertebral endplates and facet joints. No spinal or foraminal stenosis. The cord is normal i n caliber and signal. No abnormal cord enhancement. IMPRESSION: 1. No paraspinal mass. 2. Diffusely low T1 marrow signal. This can be secondary to a diffuse marrow infiltrative process or can be secondary to red marrow activation. This appearance is suspected to be related the patient's history of polycythemia vera. 3. The spleen is onl y partially included in the kspwc-mk-ozif but appears enlarged. -------- FINAL REPOR T -------- Dictated By: Nikos Cota Dictated Date: 06/16/2025 15:23 ET Assigned Physician: Nikos Alvarenga Reviewed and Electronically Signed By: Nikos Alvarenga Signed Date: 025 15:54 ET Workstation ID: [id number] Transcribed By: Self Edit Transcribed Date: 06/16/2025 15:29 ET MR LUMBAR SPINE WO AND W CON TRAST Reviewed date:06/16/2025 04:27:08 PM Interpretation: Performing Lab: Notes/Report: Note See Note [facility], a member of [facility] Patient Name: CLAY JOHNSON Date of : 1950 Reason for Exam: Paraspinal mass/tumor Exam Date: 06/15/2025 [id number] EST Report Status: Final Ordering Provider: JOHN MARTINS PCP: TROY LOBO PROCEDURE: MRI of th e lumbar spine with intravenous contrast. HISTORY: Paraspinal mass/tumor. TECHNIQUE: Sagittal and axial multisequence MRI of the lumbar spine with and without intravenous contrast administration. IV contrast dose: 17 mL Dotarem from a 20 mL vial with 3 mL discarded. COMPARISON: 02/04/2025. FINDINGS: Bilateral renal cortical cysts. The spleen is only partially included in the aagph-ak-tpuf but appears enlarged. There is moderate edema and the lumbar subcutaneous fat. No other paraspinous soft tissue findings. Diffuse low T1 marro w signal. No compression deformity. Normal alignment. No focal marrow infiltrative lesion. No abnormal marrow enhancement. Normal position of t he conus at T12. No abnormal enhancement of the conus or nerve roots of the cauda equina. Lumbar disc levels: L1-2: Mild endplate irregularity. Small anterior endplate osteophytes. Mild bilateral ligament flavum hypertrophy. No spinal or foraminal stenosis. L2-3: Minimal endpla te irregularity. Minimal degenerative irregularity of the SI joints. Mild bilateral ligamentum flavum hypertrophy. Widening of left facet joint suggesting mild hypermobility. No spinal or foraminal stenosis. L3-4: Minimal degenerative irregularity of the facet joints. Mild right-sided ligamentum flavum hypertrophy. No spinal or foraminal stenosis. L4-5: Loss of the normal T2 hyperintensity of the intervertebral disc. Moderate left central focal protrusion, which is slightly larger than on the comparison study. This results in significant narrowing of the left lateral recess, where there is impingement of the L5 nerve root, and causes mild posterior displacement of the left S1 nerve root. There is mild bilateral facet arthropathy. No foraminal stenosis. L5-S1: Minimal degenerative irregularity of the facet joints without spinal or foraminal stenosis. IMPRESSION: 1. Diffuse low T1 marrow signal. This can be secondary to a diffuse marrow infiltrative process or can be secondary to red marrow activation. This appearance is suspected to be related the patient's history of polycythemia vera. 2. A left central protrusion at L4-5 results in significant impingement of the left L5 nerve root in the lateral recess. The protrusion is slightly larger than on the 02/04/2025 comparison study. 3. No paraspinal mass. -------- FINAL REPOR T -------- Dictated By: Nikos Cota Dictated Date: 06/16/2025 15:55 ET Assigned Physician: Nikos Alvarenga Reviewed and Electronically Signed By: Nikos Alvarenga Signed Date: 025 16:09 ET Workstation ID: [id number] Transcribed By: Self Edit Transcribed Date: 06/16/2025 15:55 ET MR CERVICAL SPINE WO AND Edy HANNA Reviewed date:06/16/2025 04:05:24 PM Interpretation: Performing Lab: Notes/Report: Note See Note [facility], a member of [employer] Patient Name: CLAY JOHNSON Date of : 1950 Reason for Exam: Paraspinal mass/tumor Exam Date: 06/15/2025 [id number] EST Report Status: Final Ordering Provider: JOHN MARTINS PCP: TROY LOBO PROCEDURE: MRI of th e cervical spine with intravenous contrast. HISTORY: Paraspinal mass/tumor. COMPARISON: None. TECHNIQUE: Sagittal and axial multisequence MRI of the cervical spine with and without intravenous contrast. IV contrast dose: 17 mL Dotarem from a 20 mL vial with 3 mL discarded. FINDINGS: The visualized porti ons of the brain and skull base are normal. Straightening of the typical cervical lordosis. No listhesis. There is no focal bony lesion. Diffuse T1 hypointensity of the visualized marrow spaces. Normal appearance of the soft tissues of the neck. There is no cord sig nal abnormality and no abnormal cord enhancement. Cervical disc levels: C2-3: Mild left face t arthropathy. Mild left foraminal stenosis. No spinal stenosis. C3-4: Mild bilateral facet arthropathy. Moderate posterior ligamentous hypertrophy eccentric to the left resulting in mild spinal stenosis. Moderate left foraminal stenosis. C4-5: Mild disc spac e height loss and endplate irregularity. Small right uncovertebral spurs. Mild posterior ligamentous hypertrophy, eccentric to the left, causing mild spinal stenosis. Moderate right foraminal stenosis. C5-6: Moderate disc space height loss and endplate irregularity. Small bilateral uncovertebral spurs and a small disc osteophyte complex which is most prominent in the left central region, causing mild-moderate spinal stenosis eccentric to the left. Moderate left foraminal stenosis. C6-7: Mild endplate irregularity. Minimal endplate osteophytes. No significant spinal or foraminal stenosis. C7-T1: Mild right fa cet arthropathy without spinal or foraminal stenosis. IMPRESSION: 1. Diffuse low T1 marrow signal. This can be secondary to a diffuse marrow infiltrative process or can be secondary to red marrow activation. This appearance is suspected to be related the patient's history of polycythemia vera. 2. Degenerative carlos ges of the cervical spine as detailed above. -------- FINAL REPOR T -------- Dictated By: Nikos Cota Dictated Date: 06/16/2025 15:00 ET Assigned Physician: Nikos Alvarenga Reviewed and Electronically Signed By: Nikos Alvarenga Signed Date: 025 15:22 ET Workstation ID: [id number] Transcribed By: Self Edit Transcribed Date: 06/16/2025 15:00 ET CYTOGENETICS MISCELLANEOUS Reviewed date:05/03/2025 04:16:05 PM Interpretation: Performing Lab: Notes/Report: Scan Result See Scanned Result FLOW CYTOMETRY Reviewed date:05/03/2025 04:15:58 PM Interpretation: Performing Lab: Notes/Report: Flow Cytometry Interpretation See Report Bone marrow, Flow cytometry: - A monotypic B cell population identified, which expresses CD5, CD19, CD20 (dim), CD38 (partial), CD200 (moderate), and monotypic surface kappa light chain (dim). The monotypic B cell population accounts for approximately 33% of the lymphocytes (approximately 8-9% of all cells evaluated). - Most of the lymphocytes are CD3-positive T cells including CD4-positive and CD8-positive subsets without diagnostic phenotypic aberrancy. - The proportion of TM31-kjltcxkd blasts is approximately 2.5% of IE56-yyyvxxkm cells. Note: Although not entirely specific, the monotypic B cell population has phenotypic findings most characteristic of chronic lymphocytic leukemia/small lymphocytic lymphoma (CLL/SLL). 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 Most of the lymphocytes in this specimen are T cells without diagnostic phenotypic aberrancy. There is a population of VO66-qkpepbnw blasts with a myeloid phenotype that accounts for 2.5% of XG79-opxurwaq cells. This population expresses the myeloid associated antigens CD33, CD117 and CD123 (weak, partial) as well as HLA-DR and CD38, but shows no significant expression of CD13, CD15, or specific markers of monocytic, T cell or B cell differentiation. It is noted that most of the granulocytes in this specimen appear to comprise mature XB40-dvgbxgxr neutrophils suggesting that this bone marrow represents a hemodilute specimen. Please note that myeloid disorders cannot be reliably excluded by flow cytometry. SPECIMEN: Bone marrow VIABILITY: 96.6 TOTAL CELL YIELD: 13.2 x106/mL IMMUNOPHENOTYPIC FINDINGS: Lymphocytes are 25.8% of total. - T cells are 12.5% of total (48.5% of cells in lymphocyte gate) with no aberrant phenotype, CD4:CD8=6.2. - B cells are 9.1% of total (35.1% of cells in lymphocyte gate). Most of the B cells (approximately 95%) comprise a monotypic B cell population with expression of CD5, CD19, CD20 (dim), CD200 (moderate), and monotypic surface kappa light chain (dim). Approximately half of the abnormal B cells show expression of CD38 (based on a threshold gate). A small population of polytypic B cells with brighter expression of CD20 and without expression of CD5 is also present, accounting for approximately 1.5% of lymphocytes. - NK cells account for 2.5% of total (9.7% of cells in lymphocyte gate) and express CD2, CD7, CD56 and CD16 without coexpression of surface CD3 or CD5. - Plasma cells are less than 0.1% of total and are not further characterized. - Granulocytes are 65.7% of total and show generally claims supervisor immunophenotypic maturation. Most of the granulocytes show expression of CD10 and have phenotypic features of mature granulocytes, raising the possibility of hemodilution. - Monocytic cells are 2.9% of total and show generally claims supervisor immunophenotypic maturation. - CD45 dim cells are 3.7% of total. CD34+ blasts with coexpression of CD33 (weak), CD38, CD117, CD123 (dim), and HLA-DR without significant expression of CD13 or CD15 account for 2.8% of the GF34-wrsfngsx cells. The blasts show no significant expression of CD7 or CD56. Antibodies (27 markers): CD2, CD3, CD4, CD5, CD7, CD8, CD10, CD11b, CD13, CD14, CD15, CD16, CD19, CD20, CD33, CD34, CD38, CD45, CD56, CD64, CD117, CD123, CD200, HLA-DR, [place], Lambda, TCR??. This test was developed and its performance characteristics determined by [facility]. It has not been cleared or approved by U.S. Food and Drug Administration. The FDA does not require this test to go through premarket FDA review. This test is used for clinical purposes. It should not be regarded as investigational or for research. This laboratory is certified under Clinical Laboratory Improvement Amendments of 1988 (CLIA) as qualified to perform high complexity clinical laboratory testing. 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 Nine cells show gain of the long arm of chm of chromosome 1. Eleven cells show a normal karyotype. Gain of the long arm of chromosome 1 is observed in 10-15% of PV with abnormal karyotype at diagnosis, and in 70-90% in PV evolving to myelofibrotic phase and at the time of acute transformation. Recommendation: These results should be interpreted in conjunction with clinical and other laboratory findings. Monitoring by cytogenetics and FISH studies is recommended, if clinically indicated. Comments: The clonal abnormality, observed in a previous specimen, is observed in the cells analyzed from the current specimen. Please refer to [facility] Results (below). The findings in the current study are therefore consistent with persistence of disease. Standard cytogenetic analysis may not detect subtle submicroscopic rearrangements and may not include metaphases from abnormal cell populations with low mitotic rates or present in low levels. Test Detail: Metaphases Counted: 20 Metaphases Analyzed: 20 Metaphases Karyotyped: 3 Culture Type: 24EB, 48EB Banding Technique: GTG Banding Resolution: 400 Electronic Signature Alondra Diego M.S., Ph.D., [facility] [place] ([facility]), [facility] - [facility]. Electronic Signature Virying Maral Bejarano, Ph.D. Report Date: 05/01/2025 07:17:10 PM ET (Full report on file) Addendum electronically signed by Lito Bruno MD on 05/02/2025 at 4:01 PM Final Diagnosis Bone Marrow, aspiration, core biopsy, and clot: - A monotypic B cell population is detected by flow cytometry, which has a composite immunophenotype most characteristic of chronic lymphocytic leukemia/small lymphocytic lymphoma. - Morphologic features consistent with involvement by a myeloproliferative neoplasm including large aggregates of cytologically abnormal megakaryocytes and a diffuse increase in reticulin-stained fibers (MF-2), consistent with post-polycythemic myelofibrosis. (See note.) Note: This is a markedly hypercellular bone marrow for the patient's age (greater than 95% cellularity). Morphologic assessment is somewhat limited by the absence of cellular marrow particles (dry tap likely related to increased reticulin fibrosis). However, histologic sections of the bone marrow show maturing myeloid and erythroid precursors and a marked increase in morphologically abnormal megakaryocytes including large compact aggregates of megakaryocytes. There is a diffuse increase in reticulin-stained fibers (MF-2). There was a low proportion of GW07-hioimliy blasts detected by flow cytometry. Although that result may not be fully artists' booking representative of the bone marrow (a hemodilute specimen), an immunohistochemical study also shows a low proportion of IA55-hwxqitou blasts in the bone marrow (estimated at less than 5% of bone marrow mononuclear cells). The morphologic and immunophenotypic findings support a diagnosis of a myeloproliferative neoplasm. 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 In addition to the myeloproliferative neoplasm, a monotypic B cell population expressing CD5, CD19, CD20 (dim), CD38 (partial), CD200 (moderate) and monotypic surface kappa light chain (dim) was identified by flow cytometry. Immunohistochemical studies confirm that the bone marrow lymphoid aggregates include a subset of B cells that show aberrant coexpression of CD5 and CD23 without expression of cyclin D1. This immunophenotype is most characteristic of chronic lymphocytic leukemia/small lymphocytic lymphoma (CLL/SLL). It is noted that the patient's peripheral blood lymphocyte count is low (less than 5000 per microliter) and that the abnormal lymphocytes appear to account for less than 10% of the bone marrow cellularity. Based on cell counts alone the possibility of a monoclonal B cell lymphocytosis would warrant consideration. The patient's splenomegaly would typically be considered an exclusion criterion for that classification and would support classification as CLL/SLL. However, in this case the splenomegaly may be directly related to the patient's underlying myeloproliferative neoplasm, and definitive classification of the lymphoid proliferation is difficult. Karyotype is pending, addendum to follow. CBC (04/24/2025): WBC 13.6 k/uL, Hemoglobin 10.3 g/dL, Hematocrit 33.4%, MCV 88.6 fL, RDW 19.9%, Platelets 372 k/uL. Differential: Neutrophils: 69.0%, Lymphs: 10.0%, Monos: 1.0%, Eos: 4.0%, Basos: 1.0%, Blasts: 2.0%, Promyelocytes: 1.0%, Myelocytes: 5.0%, Metamyelocytes: 5.0%, Bands: 1.0%. Bone marrow aspirate smear (Hernandez stain): Specimen quality: No cellular marrow particles identified. A differential cell count is not performed (hemodilute specimen). Review of the aspirate smear slides reveals predominantly peripheral blood elements (mature neutrophils and lymphocytes) with few myelocytes, metamyelocytes and nucleated erythroid precursors noted. Abundant platelets are seen. Many teardrop cells are noted. Iron stain: No cellular marrow particles are identified (storage iron cannot be assessed). Although no pathologic ring sideroblasts are identified, the number of nucleated erythroid precursors is very low. Microscopic finding of bone marrow biopsy and clot (H and E, PAS): Specimen quality: -Core: Adequate for evaluation (12 mm) -Clot: A clot section is not prepared. Cellularity: Greater than 95% (hypercellular for patient age). Myeloid maturation: Maturing myeloid precursors are present including immature mononuclear cells and mature granulocytes. Focally increased eosinophils are noted. Erythroid maturation: Erythroid precursors are present including occasional small, ill-defined erythroid islands. Megakaryocyte number and maturation: Megakaryocytes are markedly increased and include bizarre, large forms and large aggregates of megakaryocytes. Plasma cells: Few plasma cells are present; no expansile aggregates of plasma cells are identified. Lymphocytes: Occasional aggregates of lymphoid cells are present, comprising predominantly small lymphocytes. Reticulin stain: Diffuse increase in reticulin-stained fibers (MF-2). Other findings: PAS Stain highlights megakaryocytes. Because of the hemodilute nature of the specimen submitted for flow cytometric evaluation, immunohistochemical studies were performed on the bone marrow biopsy for correlation with morphologic findings. The results are as follows: CD3: Subset of small lymphocytes immunoreactive (interstitial and in lymphoid aggregates). CD5: Subset of lymphocytes immunoreactive (interstitial and in lymphoid aggregates, somewhat greater than CD3). CD20: Subset of lymphocytes immunoreactive (interstitial and in lymphoid aggregates).. CD23: Subset of lymphocytes immunoreactive (mainly in lymphoid aggregates with smaller proportion of interstitial lymphocytes). CD34: Endothelial cells and scattered bone marrow mononuclear cells immunoreactive. Cyclin D1: Lymphoid aggregates are negative. Interpretation: The immunohistochemical study for CD34 confirms a low proportion of CD34 positive blasts (estimated at less than 5% of bone marrow mononuclear cells), which are distributed singly. Most of the lymphocytes are CD3 positive T cells that coexpress CD5. In some of the lymphoid aggregates, there is a majority of T cells. The LT19-yqriehjd B cells include at least a subset that aberrantly coexpresses CD5 and CD23, including one aggregate of small lymphocytes that comprises predominantly this population. There are occasional B cells in the interstitium that appear to coexpress CD5 and CD23. The B cells do not express cyclin D1. The immunophenotype of the B cells is most characteristic of chronic lymphocytic leukemia/small lymphocytic lymphoma. Flow Cytometry - A monotypic B cell population identified, which expresses CD5, CD19, CD20 (dim), CD38 (partial), CD200 (moderate), and monotypic surface kappa light chain (dim). The monotypic B cell population accounts for approximately 33% of the lymphocytes (approximately 8-9% of all cells evaluated). - Most of the lymphocytes are CD3-positive T cells including CD4-positive and CD8-positive subsets without diagnostic phenotypic aberrancy. - The proportion of VV60-eunxpefc blasts is approximately 2.5% of KU00-npidwllg cells. Note: Although not entirely specific, the monotypic B cell population has phenotypic findings most characteristic of chronic lymphocytic leukemia/small lymphocytic lymphoma (CLL/SLL). 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 Most of the lymphocytes in this specimen are T cells without diagnostic phenotypic aberrancy. There is a population of OM30-jkrlldqn blasts with a myeloid phenotype that accounts for 2.5% of PG10-whjcqysv cells. This population expresses the myeloid associated antigens CD33, CD117 and CD123 (weak, partial) as well as HLA-DR and CD38, but shows no significant expression of CD13, CD15, or specific markers of monocytic, T cell or B cell differentiation. It is noted that most of the granulocytes in this specimen appear to comprise mature IJ32-qvhrpbxk neutrophils suggesting that this bone marrow represents a hemodilute specimen. Please note that myeloid disorders cannot be reliably excluded by flow cytometry. SPECIMEN: Bone marrow VIABILITY: 96.6 TOTAL CELL YIELD: 13.2 x106/mL IMMUNOPHENOTYPIC FINDINGS: Lymphocytes are 25.8% of total. - T cells are 12.5% of total (48.5% of cells in lymphocyte gate) with no aberrant phenotype, CD4:CD8=6.2. - B cells are 9.1% of total (35.1% of cells in lymphocyte gate). Most of the B cells (approximately 95%) comprise a monotypic B cell population with expression of CD5, CD19, CD20 (dim), CD200 (moderate), and monotypic surface kappa light chain (dim). Approximately half of the abnormal B cells show expression of CD38 (based on a threshold gate). A small population of polytypic B cells with brighter expression of CD20 and without expression of CD5 is also present, accounting for approximately 1.5% of lymphocytes. - NK cells account for 2.5% of total (9.7% of cells in lymphocyte gate) and express CD2, CD7, CD56 and CD16 without coexpression of surface CD3 or CD5. - Plasma cells are less than 0.1% of total and are not further characterized. - Granulocytes are 65.7% of total and show generally claims supervisor immunophenotypic maturation. Most of the granulocytes show expression of CD10 and have phenotypic features of mature granulocytes, raising the possibility of hemodilution. - Monocytic cells are 2.9% of total and show generally claims supervisor immunophenotypic maturation. - CD45 dim cells are 3.7% of total. CD34+ blasts with coexpression of CD33 (weak), CD38, CD117, CD123 (dim), and HLA-DR without significant expression of CD13 or CD15 account for 2.8% of the OR70-zgulzpjm cells. The blasts show no significant expression of CD7 or CD56. Antibodies (27 markers): CD2, CD3, CD4, CD5, CD7, CD8, CD10, CD11b, CD13, CD14, CD15, CD16, CD19, CD20, CD33, CD34, CD38, CD45, CD56, CD64, CD117, CD123, CD200, HLA-DR, [place], Lambda, TCR??. This test was developed and its performance characteristics determined by [facility]. It has not been cleared or approved by U.S. Food and Drug Administration. The FDA does not require this test to go through premarket FDA review. This test is used for clinical purposes. It should not be regarded as investigational or for research. This laboratory is certified under the Clinical Laboratory Improvement Amendments of 1988 (CLIA) as qualified to perform high complexity clinical laboratory testing. Additional Testing (Addendum to follow): Conventional karyotype All special stains were performed with appropriate controls. Comment The findings were discussed with Dr. Doroteo Chavarria by Dr. Luna Bruno on 04/28/2025. Gross Description A. Bone Marrow Aspirate, : Labeled with the patient's name and information are two green top tubes and two purple top tubes. Eight slides are prepared. One slide subsequently is stained for iron. Two slides are stained with Hernandez's giemsa. One of the purple top tubes, containing 3.5 mL of bone marrow aspirate, is submitted in toto to [facility] in [place], [place], for flow cytometric studies. The remaining purple top tube and both green top tubes, containing 3 mL and 6 ml of bone marrow aspirate, respectively, are submitted to [facility], [place], [place], for cytogenetic studies. B. Bone Marrow Biopsy, : Labeled bone marrow biopsy . Received in formalin is a disrupted 1.2 x 0.2 cm hard, cohen-red, core of bone, which is submitted in toto in one cassette following decalcification in Immunocal, one piece, x2. Please note: No clot is removed with the specimen SHANTI Disclaimer Unless otherwise specified, all tissue is 10% NB formalin fixed and paraffin embedded. NOTE: The immunohistochemical tests and in situ hybridization tests were developed and their performance characteristics were determined by [facility]. They have not been cleared or approved by the U.S. Food and Drug Administration. The FDA has determined that such clearance or approval is not necessary. These tests are used for clinical purposes. They should not be regarded as investigational or for research. This laboratory is certified under the Clinical Laboratory Improvement Amendments of 1988 (CLIA) as qualified to perform high complexity clinical laboratory testing. (controls appropriate) Addendum This case was sent t o [facility], [address] [employer] [place], [place], (CLIA #[id number]) for Oncology Chromosome Analysis studies. Their diagnosis is as follows: IR BX AND ASP BONE MARROW Reviewed date:04/25/2025 10:59:39 AM Interpretation: Performing Lab: Notes/Report: Note See Note [facility], a member of [employer] Patient Name: CLAY JOHNSON Date of : 1950 Reason for Exam: Polycythemia vera, myelofibrosis restaging Exam Date: 04/24/2025 [id number] EST Report Status: Final Ordering Provider: ANSHUL IRAHETA PCP: TROY LOBO CT-guided bone marro w biopsy. INDICATION: Pancytopenia. Interventionalist: Anat Leahy Acuity: Chronic Laterality: Right PROCEDURE: Informed consent was obtained from the patient. The patient was placed in the CT scanner in prone position. Initial image was obtained through the bony pelvis with overlying skin markers. Appropriate access site was identified. Moderate sedation: Under direct physician supervision, the patient was moderately sedated with 50 mcg FENTANYL and 2 mg VERSED IV for a total of 12 minutes. An independent interventional radiology nurse observer trained in conscious sedation provided continuous physiologic monitoring of the patient during the entirety of the procedure through recovery. Local anesthesia was provided with 2% lidocaine. After making a small stab incision with a #11 blade scalpel, an 11-gauge needle was advanced to the posterior iliac crest. Additional lidocaine was provided at the level of the periosteum. The needle was advan berlin through the bony cortex and a heparinized marrow sample was obtained. A core sample was then obtained. The needle was removed. Hemostasis was achieved. The patient tolerated procedure with no immediate complications. IMPRESSION: Successful bone blanca ow aspiration/biopsy as described. -------- FINAL REPOR T -------- Dictated By: Julian Leahy Dictated Date: 04/24/2025 13:50 ET Assigned Physician: Julian Leahy Reviewed and Electronically Signed By: Julian Leahy Signed Date: 025 13:51 ET Workstation ID: [id number] Transcribed By: Self Edit Transcribed Date: 04/24/2025 13:50 ET PROTHROMBIN TIME WITH INR Reviewed date:04/25/2025 11:00:02 AM Interpretation: Performing Lab: Notes/Report: Protime 13.7 10.6-13.9 sec INR 1.1 CBC WITH AUTO DIFFERENTIAL Reviewed date:04/25/2025 10:59:53 AM Interpretation: Performing Lab: Notes/Report: WBC 13.6 4.8-10.8 K/mcL RBC 3.80 4.50-5.50 M/mcL Hemoglobin 10.3 13.5-17.5 g/dL Hematocrit 33.4 42.0-54.0 % MCV 88.6 79.0-98.0 FL MCH 27.3 27.0-32.0 pcg MCHC 30.8 32.0-37.0 g/dL RDW 19.9 11.0-15.0 % Platelets 372 130-400 K/mcL MPV 12.5 7.0-11.0 FL NRBC 1.0 <1.0 % NRBC Absolute 0.13 <0.10 K/mcL POCT GLUCOSE, BLOOD Reviewed date:02/06/2025 07:48:36 AM Interpretation: Performing Lab: Notes/Report: Glucose POCT 196 70-100 mg/dL XR PELVIS 1-2 VIEWS Reviewed date:02/06/2025 07:48:46 AM Interpretation: Performing Lab: Notes/Report: Note See Note [facility], a member of [employer] Patient Name: CLAY JOHNSON Date of : 1950 Reason for Exam: Left paralumbar/gluteal pain Exam Date: 02/05/2025 [id number] EST Report Status: Final Ordering Provider: JOE GRIMES PCP: TROY LOBO INDICATION: Left paralumbar/gluteal pain COMPARISON: Correlat ion is made with prior CT January 2025 and prior lumbar spine MRI January 2025 TECHNIQUE: Frontal v iew of the pelvis IMPRESSION: FINDINGS/IMPRESSION: No acute fracture or dislocation of the pelvis or hips. Degenerative changes of the sacroiliac joints and both hips. The sacrum is obscured due to overlying bowel gas and fecal contents. Atherosclerosis. Nonspecific sclerosis projecting over the left proximal femoral diaphysis which may be located within the soft tissues. -------- FINAL REPOR T -------- Dictated By: Paz Chino Dictated Date: 02/05/2025 12:14 ET Assigned Physician: Paz Chino Reviewed and Electronically Signed By: Paz Chino Signed Date: 12:17 ET Workstation ID: [id number] Transcribed By: Self Edit Transcribed Date: 02/05/2025 12:14 ET C-REACTIVE PROTEIN Reviewed date:02/05/2025 08:59:47 AM Interpretation: Performing Lab: Notes/Report: C-Reactive Protein <0.29 <=0.50 mg/dL POCT GLUCOSE, BLOOD Reviewed date:02/05/2025 08:59:33 AM Interpretation: Performing Lab: Notes/Report: Glucose POCT 124 70-100 mg/dL MAGNESIUM Reviewed date:02/05/2025 08:59:59 AM Interpretation: Performing Lab: Notes/Report: Magnesium 2.0 1.9-2.6 mg/dL CBC WITH AUTO DIFFERENTIAL Reviewed date:02/06/2025 07:48:49 AM Interpretation: Performing Lab: Notes/Report: WBC 13.3 4.8-10.8 K/mcL RBC 3.20 4.50-5.50 M/mcL Hemoglobin 9.3 13.5-17.5 g/dL Hematocrit 30.6 42.0-54.0 % MCV 95.3 79.0-98.0 FL MCH 29.0 27.0-32.0 pcg MCHC 30.4 32.0-37.0 g/dL RDW 19.5 11.0-15.0 % Platelets 351 130-400 K/mcL MPV 11.4 7.0-11.0 FL NRBC 0.9 <1.0 % NRBC Absolute 0.12 <0.10 K/mcL BASIC METABOLIC PANEL Reviewed date:02/05/2025 08:59:53 AM Interpretation: Performing Lab: Notes/Report: Sodium 138 133-145 mmol/L Potassium 4.0 3.5-5.5 mmol/L Chloride 105 96-110 mmol/L CO2 27 21-32 mmol/L Anion Gap 6 3-11 Glucose 118 70-100 mg/dL BUN 12 5-25 mg/dL Creatinine 0.66 0.70-1.30 mg/dL eGFR 99 >=60 mL/min/1.73m2 Calculation based on the?Chronic Kidney Disease Epidemiology Collaboration (CKD-EPI) equation refit?without adjustment for race. BUN/Creatinine Ratio 18.2 Calcium 8.7 8.5-10.5 mg/dL MR LUMBAR SPINE WO AND W CON TRAST Reviewed date:02/05/2025 09:00:03 AM Interpretation: Performing Lab: Notes/Report: Note See Note [facility], a member of [employer] Patient Name: CLAY JOHNSON Date of : 1950 Reason for Exam: Low back pain, cancer suspected Exam Date: 02/04/2025 [id number] EST Report Status: Final Ordering Provider: STUART CINTRON PCP: TROY LOBO INDICATION: Low back pain, cancer suspected MRI LUMBAR SPINE WITHOUT CONTRAST Comparison: CT - CT ABD PEL WO CONTRAST - 02/04/25 04:36 EDT Findings: There is minimal gra de 1 retrolisthesis L4 on L5. There is a right-sohan ed L5 pars defect. No L5-S1 spondylolisthesis. No acute fracture or osseous marrow replacement process. Conus medullaris and cauda equina unremarkable. No enhancing intramedullary or epidural lesion. T12-L1: Unremarkable. L1-2: Mild disc displacement. No spinal or foraminal stenosis. L2-3: Unremarkable. L3-4: Unremarkable. L4-5: Moderate disc bulge and facet arthropathy. Odkc-xy-qplzobfv spinal stenosis. Moderate bilateral foraminal stenoses, left greater than right. L5-S1: Unremarkable. Multiple bilateral renal cysts. Paraspinal muscles unremarkable. IMPRESSION: Impression: 1. No evidence for metastatic disease. 2. Apqo-jk-toawulyd spinal and moderate bilateral foraminal stenoses at L4-5 related to a di sc bulge and facet arthrosis. This document has be en electronically signed by: Ruby Hunt DO on 02/04/2025 14:36:37 CBC WITH AUTO DIFFERENTIAL Reviewed date:07/03/2025 01:06:54 PM Interpretation: Performing Lab: Notes/Report: WBC 11.7 4.8-10.8 K/mcL RBC 3.70 4.50-5.50 M/mcL Hemoglobin 9.8 13.5-17.5 g/dL Hematocrit 32.1 42.0-54.0 % MCV 87.0 79.0-98.0 FL MCH 26.6 27.0-32.0 pcg MCHC 30.5 32.0-37.0 g/dL RDW 20.2 11.0-15.0 % Platelets 440 130-400 K/mcL MPV 11.1 7.0-11.0 FL NRBC 0.6 <1.0 % NRBC Absolute 0.07 <0.10 K/mcL FERRITIN Reviewed date:07/03/2025 01:06:59 PM Interpretation: Performing Lab: Notes/Report: Ferritin 260 26-388 ng/mL COMPREHENSIVE METABOLIC PANE L Reviewed date:07/03/2025 01:07:05 PM Interpretation: Performing Lab: Notes/Report: Sodium 140 133-145 mmol/L Potassium 3.7 3.5-5.5 mmol/L Chloride 107 96-110 mmol/L CO2 27 21-32 mmol/L Anion Gap 6 3-11 Glucose 168 70-100 mg/dL BUN 7 5-25 mg/dL Creatinine 0.68 0.70-1.30 mg/dL eGFR 98 >=60 mL/min/1.73m2 Calculation based on the Chronic Kidney Disease Epidemiology Collaboration (CKD-EPI) equation refit without adjustment for race. BUN/Creatinine Ratio 10.3 Calcium 8.7 8.5-10.5 mg/dL AST (SGOT) 16 10-42 unit/L ALT (SGPT) 16 10-60 unit/L Alkaline Phosphatase 79 42-121 unit/L Total Protein 5.7 6.0-8.0 g/dL Albumin 3.4 3.2-5.0 g/dL Total Bilirubin 0.4 0.0-1.4 mg/dL LACTATE DEHYDROGENASE Reviewed date:07/03/2025 01:07:13 PM Interpretation: Performing Lab: Notes/Report: LDH 535 120-246 unit/L TYPE AND SCREEN Reviewed date:07/25/2025 05:26:25 PM Interpretation: Performing Lab: Notes/Report: ABO Group A Rh Type Positive Antibody Screen Negative VITAMIN B12 Reviewed date:07/25/2025 05:26:39 PM Interpretation: Performing Lab: Notes/Report: Vitamin B-12 1146 250-900 pcg/mL FOLATE Reviewed date:07/25/2025 05:26:35 PM Interpretation: Performing Lab: Notes/Report: Folate >20.0 2.8-17.0 ng/ml COMPREHENSIVE METABOLIC PANE L Reviewed date:07/25/2025 05:26:30 PM Interpretation: Performing Lab: Notes/Report: Sodium 140 133-145 mmol/L Potassium 3.7 3.5-5.5 mmol/L Chloride 106 96-110 mmol/L CO2 28 21-32 mmol/L Anion Gap 6 3-11 Glucose 190 70-100 mg/dL BUN 14 5-25 mg/dL Creatinine 0.64 0.70-1.30 mg/dL eGFR 100 >=60 mL/min/1.73m2 Calculation based on the Chronic Kidney Disease Epidemiology Collaboration (CKD-EPI) equation refit without adjustment for race. BUN/Creatinine Ratio 21.9 Calcium 9.1 8.5-10.5 mg/dL AST (SGOT) 19 10-42 unit/L ALT (SGPT) 20 10-60 unit/L Alkaline Phosphatase 78 42-121 unit/L Total Protein 5.8 6.0-8.0 g/dL Albumin 3.5 3.2-5.0 g/dL Total Bilirubin 0.7 0.0-1.4 mg/dL Results kwan ified by repeat testing Reason For Referral Reason Evaluation and manag ement Diagnosis 1 Diaphragmatic hernia without obstruction or gangrene (K44.9) Referral Organization [facility] Referring Provider First Name Kayleigh Referring Provider Last Name Taz Referring Provider Speciality Internal M edicine Referred Provider Specialty Surgery General Notes Referral sent to [facility] ([address] [place] [address] [address], [place] [address] ) - Office will call patient for scheduling.Jethro Latraya 09/07/2024 11:54:51 AM > Referral Priority Routine Medications Medication SIG (Take, Route, Frequency, Duration) Notes Start Date End Date Status OxyCONTIN 10 MG 1 tablet Orally ever y 12 hrs Active Probiotic Not-Taking Gabapentin 300 MG 3 capsule Orally twi ce a day 06/19/2025 Active Vitamin C 500 MG 1 tablet Orally Once a day Not-Taking Fluticasone Propionate 50 MCG/ACT 1 spray in each nostril Nasally Once a day As needed Active Loperamide HCl 2 MG 2 capsule as needed Orally twice a day Not-Taking Cephalexin 250 MG 1 capsule Orally daily Active Omeprazole 20 MG 1 capsule 30 minutes before morning meal Orally Once a day Not-Taking Cefdinir 300 MG as directed Orally twice a day; Duration: 5 days 08/11/2025 Active Cialis 5 MG 1 tablet as needed Orally Once a day Not-Taking Folic Acid 1 MG 1 tablet Orally Once a day Not-Taking Levothyroxine Sodium 25 MCG 1 tablet in the morning on an empty stomach Orally Once a day Active Hydroxyurea 500 MG 2 capsule Orally Onc e a day Not-Taking Bactrim 400-80 MG 1 tablet Orally Once a day Not-Taking Ipratropium Spur 0.03 % 2 sprays in each nostril Nasally Twice a day; Duration: 30 day(s) 01/27/2023 Not-Taking Azithromycin 250 MG 1 tablet Orally 2 tablets on the first day, then 1 tablet daily; Duration: 5 days 08/11/2025 Active Cilostazol 50 MG 1 tablet 30 minutes before or 2 hours after breakfast and dinner Orally Twice a day Not-Taking Aspirin Adult Low Dose 81 MG 1 tablet Orally Once a day Not-Taking Ketoconazole 2 % 1 application Externally Once a day Not-Taking Sulfacetamide Sodium 10 % 1 application Externally Not-Taking Methenamine Hippurate 1 GM 1 tablet Orally Twice a day Not-Taking Mucinex 600 MG 1 tablet as needed Orally every 12 hrs; Duration: 14 days 08/11/2025 Active Mometasone Furoate 0.1 % 1 application Externally Once a day Not-Taking Immunizations Vaccine Route Administration Date Status Comme nts COVID 19 Pfizer Unknown 12/29/2020 Administered COVID 19 Pfizer Unknown 01/19/2021 Administered COVID 19 Pfizer Unknown 08/22/2021 Administered COVID Pfizer Unknown 03/06/2022 Administered COVID-19 Pfizer Unknown 09/04/2022 Administered Flu High-Dose Unknown 08/29/2022 Administered Fluzone High Dose 93726 IM Intramuscular 09/02/2024 Admini stered Fluzone High-Dose IM Intramuscular 09/01/2023 Administered Social History Tobacco Use: Social History Observation Description Date Details (start date - stop date) Never Smoker NA - NA Tobacco Use/Smoking Question Answer Notes Are you a nonsmoker Alcohol Screen (Audit-C) Question Answer Notes Did you have a drink contain ing alcohol in the past year? Yes How often did you have a dri nk containing alcohol in the past year? 2 to 4 times a month (2 points) How many drinks did you have on a typical day when you were drinking in the past year? 3 or 4 drinks (1 point) Points 3 Interpretation Negative Problems Problem Type SNOMED Code ICD Code Onset Dates Problem Status W/U Status Risk Notes Problem Polycythemia vera (380354061) Polycythemia vera (D45) Active confirmed Problem Hypothyroidism (32094156) Hypothyroidism, unspecified (E03.9) Active confirmed Problem Non-toxic single thyroid nodule (887952872) Nontoxic single thyroid nodule (E04.1) Active confirmed Problem Disorder due to type 2 diabetes mellitus (652582361) Type 2 diabetes mellitus with unspecified complications (E11.8) Active confirmed Problem Obstructive sleep apnea syndrome (disorder) (43210590) Obstructive sleep apnea (adult) (pediatric) (G47.33) Active confirmed Problem Right carotid artery stenosis (018623965858474) Occlusion and stenosis of right carotid artery (I65.21) Active confirmed Problem Pain co-occurrent and due to varicose veins of bilateral legs (1146218165451373 0) Varicose veins of bilateral lower extremities with pain (I83.813) Active confirmed Problem Gastro-esophageal reflux disease without esophagitis (161534204) Gastro-esophageal reflux disease without esophagitis (K21.9) Active confirmed Problem Irritable bowel syndrome with diarrhea (393810568) Irritable bowel syndrome with diarrhea (K58.0) Active confirmed Problem Rosacea (102560351) Rosacea, unspecified (L71.9) Active confirmed Problem Gout (63581835) Gout, unspecifie d (M10.9) Active confirmed Problem Lumbosacral radiculopathy (1169385) Radiculopathy, lumbosacral region (M54.17) Active confirmed Problem Screening for cardiovascular system disease (891853391) Encounter for screening for cardiovascular disorders (Z13.6) Active confirmed Problem History of malignant neoplasm of prostate (142384781) Personal history of malignant neoplasm of prostate (Z85.46) Active confirmed Problem History of disease caused by Severe acute respiratory syndrome coronavirus 2 (situation) (3812907982470686 05) Personal history of COVID-19 (Z86.16) Active confirmed Problem Thyroid nodule (476633213) Thyroid nodule (E04.1) Active confirmed Vital Signs Heart Rate 84 /min 06/19/2025 Temperature 96.5 degrees Fahrenheit 06/19/2025 Oximetry 97 % 06/19/2025 Blood pressure diastolic 60 mm Hg 06/19/2025 Height 69 in 06/19/2025 Blood pressure systolic 110 mm Hg 06/19/2025 Weight 182.1 lbs 06/19/2025 BMI 26.89 kg/m2 06/19/2025 Encounters Encounter Location Date Provider Diagnosis [address] [place] [address] 09/02/2024 Arochico Mcghee Hypothyroidism, unspecified E03.9 ; Annual wellness visit Z00.00 ; Gastro-esophageal reflux disease without esophagitis K21.9 ; Polycythemia vera D45 ; Personal history of malignant neoplasm of prostate Z85.46 ; Obstructive sleep apnea (adult) (pediatric) G47.33 ; Rosacea, unspecified L71.9 ; Encounter for immunization Z23 and Varicose veins of bilateral lower extremities with pain I83.[address] [place] [address] 06/19/2025 SIMMONS GU Hypothyroidism, unspecified E03.9 ; Radiculopathy, lumbosacral region M54.17 ; Gastro-esophageal reflux disease without esophagitis K21.9 ; Polycythemia vera D45 ; Personal history of malignant neoplasm of prostate Z85.46 ; Obstructive sleep apnea (adult) (pediatric) G47.33 ; Rosacea, unspecified L71.9 ; Varicose veins of bilateral lower extremities with pain I83.813 and Encounter for screening for cardiovascular disorders Z13.[address] [place] [address] 09/07/[address] [place] [address] 02/08/[address] [place] [address] 03/21/[address] [place] [address] 04/04/[address] [place] [address] 05/04/2025 Elsa Talamantes [address] [place] [address] 08/11/2025 Elsa Escobedoloum Pneumonia, unspecifi ed organism J18.9 Assessments Encounter Date Diagnosis (ICD Code) Assessment Notes Treatment Notes Treatment Clinical Notes Section Notes 09/02/2024 Hypothyroidism, unspecified (ICD-10 - E03.9) Mr. Johnson is a 72 year old gentleman with GERD, hypothyroidism, kidney stones, IBS and sees Dr. Hendricks, prostate cancer s/p prostatectomy in [address] Vreas, actinic keratosis, hyperglycemia and sees ibrahima Greene [...] has been seen by plastic surgery at [facility] doctor Med June 01, 2024 [place]. Sleep [...] 76 bpm and QTC 422 472 normal [place] and 12 over some premature ventricular complexes but no AV blocks. No acute ST changes, EKG was reviewed by me Alexandra. He sees Dr. Coats. He uses Ketoconazole, Sulfacetamide Sodium and Mometasone Furoate cream umbilical hernia partially reducible he is not in any pain but is worried we will get a surgical referral for him for evaluation Eye screening. He sees his market risk manager regularly. Dental screening. He sees dentist regularly. Advance directive. He is on full code and his HCP is his Curtis [phone] Colon cancer screening. He is up to date on his colonoscopy and is on 9-iiag-beapv. flu shot will be given today General [...] has been seen by plastic surgery at [facility] doctor Med June 01, 2024 [place]. Sleep [...] 76 bpm and QTC 422 472 normal [place] and 12 over some premature ventricular complexes but no AV blocks. No acute ST changes, EKG was reviewed by me Alexandra. He sees Dr. Coats. He uses Ketoconazole, Sulfacetamide Sodium and Mometasone Furoate cream umbilical hernia partially reducible he is not in any pain but is worried we will get a surgical referral for him for evaluation Eye screening. He sees his market risk manager regularly. Dental screening. He sees dentist regularly. Advance directive. He is on full code and his HCP is his Curtis [phone] Colon cancer screening. He is up to date on his colonoscopy and is on [id number]-imqu-orfbv. flu shot will be given today General health concerns discussed with patient. 06/19/2025 Hypothyroidism, unspecified (ICD-10 - E03.9) Mr. Johnson is a 72 year old gentleman with GERD, hypothyroidism, kidney stones, IBS and sees Dr. Hendricks, prostate cancer s/p prostatectomy in [address] Torres, actinic keratosis, hyperglycemia and sees Dr. Escobar, rosatanjaa and sees Dr. Coats and polycythemia vera and sees Dr. Chavarria, urethral stricture surgery by Dr. 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 He also complained of lower back pain and he follows with physiatry and pain management. Lumbar radiculopathy. Currently on gabapentin and he is also given OxyContin by Dr. Bennett. Dr. Mccarthy also recommended tramadol which she can take as needed. Advised stretching exercises and he will benefit from physical therapy. Hypothyroidism. Reviewed lab work from July 2024 appears to be stableContinue Levothyroxine 25 MCG and advised to take it first thing in the morning on an empty stomach. GERD. Continue Omeprazole 20 MG daily. Prostate cancer. s/p prostatectomy in [address] Khan since she retired Status post recent left Parotid surgery reconstruction surgery diagnosis of squamous cell carcinoma has been seen by plastic surgery at [facility] doctor Med June 01, 2024. He is status post chemo and radiation and neck dissection and 3 out of 34 lymph nodes were positive and he follows with [facility]. [place]. Sleep is stable on CPAP and sees Dr. Barbosa. He uses his inhalers as needed. Polycythemia vera. He is on Aspirin 81 MG, Hydroxyurea [address] Chavarria.most of his lab work is ordered and followed by hematology Hyperglycemia. A1c 6.8, glucose 153. He sees Dr. Escobar IBS. He sees Jessie Alexandra. He sees Dr. Coats. He uses Ketoconazole, Sulfacetamide Sodium and Mometasone Furoate cream umbilical hernia partially reducible he is not in any pain but is worried we will get a surgical referral for him for evaluation Eye screening. He sees his market risk manager regularly. Dental screening. He sees dentist regularly. Advance directive. He is on full code and his HCP is his Curtis [phone] Colon cancer screening. He is up to date on his colonoscopy and is on [id number]-gjeor. 06/19/2025 Radiculopathy, lumbosacral region (ICD-10 - M54.17) Mr. Johnson is a 72 year old gentleman with GERD, hypothyroidism, kidney stones, IBS and sees Dr. Hendricks, prostate cancer s/p prostatectomy in [address] Torres, actinic keratosis, hyperglycemia and sees Dr. Escobar, ibrahima and sees Dr. Coats and polycythemia vera and sees Dr. Chavarria, urethral stricture surgery by Dr. 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 He also complained of lower back pain and he follows with physiatry and pain management. Lumbar radiculopathy. Currently on gabapentin and he is also given OxyContin by Dr. Bennett. Dr. Mccarthy also recommended tramadol which she can take as needed. Advised stretching exercises and he will benefit from physical therapy. Hypothyroidism. Reviewed lab work from July 2024 appears to be stableContinue Levothyroxine 25 MCG and advised to take it first thing in the morning on an empty stomach. GERD. Continue Omeprazole 20 MG daily. Prostate cancer. s/p prostatectomy in [address] Khan since she retired Status post recent left Parotid surgery reconstruction surgery diagnosis of squamous cell carcinoma has been seen by plastic surgery at [facility] doctor Med June 01, 2024. He is status post chemo and radiation and neck dissection and 3 out of 34 lymph nodes were positive and he follows with [facility]. [place]. Sleep is stable on CPAP and sees Dr. Barbosa. He uses his inhalers as needed. Polycythemia vera. He is on Aspirin 81 MG, Hydroxyurea [address] Chavarria.most of his lab work is ordered and followed by hematology Hyperglycemia. A1c 6.8, glucose 153. He sees Dr. Luz BECERRIL. He sees Jessie JAN Alexandra. He sees Dr. Coats. He uses Ketoconazole, Sulfacetamide Sodium and Mometasone Furoate cream umbilical hernia partially reducible he is not in any pain but is worried we will get a surgical referral for him for evaluation Eye screening. He sees his market risk manager regularly. Dental screening. He sees dentist regularly. Advance directive. He is on full code and his HCP is his Curtis [phone] Colon cancer screening. He is up to date on his colonoscopy and is on 0-rsri-bhjmf. 08/11/2025 Pneumonia, unspecified organism (ICD-10 - J18.9) 06/19/2025 Gastro-esophageal reflux disease without esophagitis (ICD-10 - K21.9) Mr. Johnson is a 72 year old gentleman with GERD, hypothyroidism, kidney stones, IBS and sees Dr. Hendricks, prostate cancer s/p prostatectomy in [address] Torres, actinic keratosis, hyperglycemia and sees Dr. Escobar, irbahima and sees Dr. Coats and polycythemia vera and sees Dr. Chavarria, urethral stricture surgery by Dr. 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 He also complained of lower back pain and he follows with physiatry and pain management. Lumbar radiculopathy. Currently on gabapentin and he is also given OxyContin by Dr. Bennett. Dr. Mccarthy also recommended tramadol which she can take as needed. Advised stretching exercises and he will benefit from physical therapy. Hypothyroidism. Reviewed lab work from July 2024 appears to be stableContinue Levothyroxine 25 MCG and advised to take it first thing in the morning on an empty stomach. GERD. Continue Omeprazole 20 MG daily. Prostate cancer. s/p prostatectomy in [address] Khan since she retired Status post recent left Parotid surgery reconstruction surgery diagnosis of squamous cell carcinoma has been seen by plastic surgery at [facility] doctor Mde June 01, 2024. He is status post chemo and radiation and neck dissection and 3 out of 34 lymph nodes were positive and he follows with [facility]. [place]. Sleep is stable on CPAP and sees Dr. Barbosa. He uses his inhalers as needed. Polycythemia vera. He is on Aspirin 81 MG, Hydroxyurea [address] Chavarria.most of his lab work is ordered and followed by hematology Hyperglycemia. A1c 6.8, glucose 153. He sees Dr. Escobar IBS. He sees Jessie Alexandra. He sees Dr. Coats. He uses Ketoconazole, Sulfacetamide Sodium and Mometasone Furoate cream umbilical hernia partially reducible he is not in any pain but is worried we will get a surgical referral for him for evaluation Eye screening. He sees his market risk manager regularly. Dental screening. He sees dentist regularly. Advance directive. He is on full code and his HCP is his Curtis [phone] Colon cancer screening. He is up to date on his colonoscopy and is on 0-[id number]-[id number]. 09/02/2024 Gastro-esophageal reflux disease without esophagitis (ICD-10 - K21.9) [...] has been seen by plastic surgery at [facility] doctor Med June 01, 2024 [place]. Sleep [...] 76 bpm and QTC 422 472 normal [place] and 12 over some premature ventricular complexes but no AV blocks. No acute ST changes, EKG was reviewed by me Alexandra. He sees Dr. Coats. He uses Ketoconazole, Sulfacetamide Sodium and Mometasone Furoate cream umbilical hernia partially reducible he is not in any pain but is worried we will get a surgical referral for him for evaluation Eye screening. He sees his market risk manager regularly. Dental screening. He sees dentist regularly. Advance directive. He is on full code and his HCP is his Curtis [id number] Colon cancer screening. He is up to date on his colonoscopy and is on 5-[id number]-[id number]. flu shot will be given today General [...] prostatectomy in [address] Khan since she retired status post recent left ear surgery reconstruction surgery diagnosis of squamous cell carcinoma has been seen by plastic surgery at [facility] doctor Med June 01, 2024 [place]. Sleep [...] 76 bpm and QTC 422 [address] [place] and 12 over some premature ventricular complexes but no AV blocks. No acute ST changes, EKG was reviewed by me Alexandra. He sees Dr. Coats. He uses Ketoconazole, Sulfacetamide Sodium and Mometasone Furoate cream umbilical hernia partially reducible he is not in any pain but is worried we will get a surgical referral for him for evaluation Eye screening. He sees his market risk manager regularly. Dental screening. He sees dentist regularly. Advance directive. He is on full code and his HCP is his Curtis [phone] Colon cancer screening. He is up to date on his colonoscopy and is on 9-[id number]-[id number]. flu shot will be given today General health concerns discussed with patient. 06/19/2025 Polycythemia vera (ICD-10 - D45) Mr. Johnson is a 72 year old gentleman with GERD, hypothyroidism, kidney stones, IBS and sees Dr. Hendricks, prostate cancer s/p prostatectomy in [address] Torres, actinic keratosis, hyperglycemia and sees ibrahima Greene and sees Dr. Coats and polycythemia vera and sees Dr. Chavarria, urethral stricture surgery by Dr. 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 He also complained of lower back pain and he follows with physiatry and pain management. Lumbar radiculopathy. Currently on gabapentin and he is also given OxyContin by Dr. Bennett. Dr. Mccarthy also recommended tramadol which she can take as needed. Advised stretching exercises and he will benefit from physical therapy. Hypothyroidism. Reviewed lab work from July 2024 appears to be stableContinue Levothyroxine 25 MCG and advised to take it first thing in the morning on an empty stomach. GERD. Continue Omeprazole 20 MG daily. Prostate cancer. s/p prostatectomy in [address] Khan since she retired Status post recent left Parotid surgery reconstruction surgery diagnosis of squamous cell carcinoma has been seen by plastic surgery at [facility] doctor Med June 01, 2024. He is status post chemo and radiation and neck dissection and 3 out of 34 lymph nodes were positive and he follows with [facility]. [place]. Sleep is stable on CPAP and sees Dr. Barbosa. He uses his inhalers as needed. Polycythemia vera. He is on Aspirin 81 MG, Hydroxyurea [address] Chavarria.most of his lab work is ordered and followed by hematology Hyperglycemia. A1c 6.8, glucose 153. He sees Dr. Luz BECERRIL. He sees Jessie Alexandra. He sees Dr. Coats. He uses Ketoconazole, Sulfacetamide Sodium and Mometasone Furoate cream umbilical hernia partially reducible he is not in any pain but is worried we will get a surgical referral for him for evaluation Eye screening. He sees his market risk manager regularly. Dental screening. He sees dentist regularly. Advance directive. He is on full code and his HCP is his Curtis [phone] Colon cancer screening. He is up to date on his colonoscopy and is on 2-mgcv-ppqaf. 09/02/2024 Personal history of malignant neoplasm of prostate (ICD-10 - Z85.46) Mr. Johnson is a 72 year old gentleman with GERD, hypothyroidism, kidney stones, IBS and sees Dr. Hednricks, prostate cancer s/p prostatectomy in 2009 and [...] has been seen by plastic surgery at [facility] doctor Med June 01, 2024 [place]. Sleep [...] 76 bpm and QTC 422 [address] [place] and 12 over some premature ventricular complexes but no AV blocks. No acute ST changes, EKG was reviewed by me Alexandra. He sees Dr. Coats. He uses Ketoconazole, Sulfacetamide Sodium and Mometasone Furoate cream umbilical hernia partially reducible he is not in any pain but is worried we will get a surgical referral for him for evaluation Eye screening. He sees his market risk manager regularly. Dental screening. He sees dentist regularly. Advance directive. He is on full code and his HCP is his Curtis [phone] Colon cancer screening. He is up to date on his colonoscopy and is on 0-nmsi-bzirf. flu shot will be given today General health concerns discussed with patient. 06/19/2025 Personal history of malignant neoplasm of prostate (ICD-10 - Z85.46) Mr. Johnson is a 72 year old gentleman with GERD, hypothyroidism, kidney stones, IBS and sees Dr. Hendricks, prostate cancer s/p prostatectomy in [address] Torres, actinic keratosis, hyperglycemia and sees ibrahima Greene and sees Dr. Coats and polycythemia vera and sees Dr. Chavarria, urethral stricture surgery by Dr. 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 He also complained of lower back pain and he follows with physiatry and pain management. Lumbar radiculopathy. Currently on gabapentin and he is also given OxyContin by Dr. Bennett. Dr. Mccarthy also recommended tramadol which she can take as needed. Advised stretching exercises and he will benefit from physical therapy. Hypothyroidism. Reviewed lab work from July 2024 appears to be stableContinue Levothyroxine 25 MCG and advised to take it first thing in the morning on an empty stomach. GERD. Continue Omeprazole 20 MG daily. Prostate cancer. s/p prostatectomy in [address] Khan since she retired Status post recent left Parotid surgery reconstruction surgery diagnosis of squamous cell carcinoma has been seen by plastic surgery at [facility] doctor Med June 01, 2024. He is status post chemo and radiation and neck dissection and 3 out of 34 lymph nodes were positive and he follows with [facility]. [place]. Sleep is stable on CPAP and sees Dr. Barbosa. He uses his inhalers as needed. Polycythemia vera. He is on Aspirin 81 MG, Hydroxyurea [address] Chavarria.most of his lab work is ordered and followed by hematology Hyperglycemia. A1c 6.8, glucose 153. He sees Dr. Escobar IBS. He sees Jessie Alexandra. He sees Dr. Coats. He uses Ketoconazole, Sulfacetamide Sodium and Mometasone Furoate cream umbilical hernia partially reducible he is not in any pain but is worried we will get a surgical referral for him for evaluation Eye screening. He sees his market risk manager regularly. Dental screening. He sees dentist regularly. Advance directive. He is on full code and his HCP is his Curtis [phone] Colon cancer screening. He is up to date on his colonoscopy and is on 2-cbbk-bhvgy. 09/02/2024 Obstructive sleep apnea (adult) (pediatric) (ICD-10 [...] has been seen by plastic surgery at [facility] doctor Med June 01, 2024 [place]. Sleep [...] 76 bpm and QTC 422 [address] [place] and 12 over some premature ventricular complexes but no AV blocks. No acute ST changes, EKG was reviewed by me Alexandra. He sees Dr. Coats. He uses Ketoconazole, Sulfacetamide Sodium and Mometasone Furoate cream umbilical hernia partially reducible he is not in any pain but is worried we will get a surgical referral for him for evaluation Eye screening. He sees his market risk manager regularly. Dental screening. He sees dentist regularly. Advance directive. He is on full code and his HCP is his Curtis [phone] Colon cancer screening. He is up to date on his colonoscopy and is on 8-qqnw-nvbwj. flu shot will be given today General health concerns discussed with patient. 06/19/2025 Obstructive sleep apnea (adult) (pediatric) (ICD-10 - G47.33) Mr. Johnson is a 72 year old gentleman with GERD, hypothyroidism, kidney stones, IBS and sees Dr. Hendricks, prostate cancer s/p prostatectomy in [address] Torres, actinic keratosis, hyperglycemia and sees Dr. Escobar, ibrahima and sees Dr. Coats and polycythemia vera and sees Dr. Chavarria, urethral stricture surgery by Dr. 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 He also complained of lower back pain and he follows with physiatry and pain management. Lumbar radiculopathy. Currently on gabapentin and he is also given OxyContin by Dr. Bennett. Dr. Mccarthy also recommended tramadol which she can take as needed. Advised stretching exercises and he will benefit from physical therapy. Hypothyroidism. Reviewed lab work from July 2024 appears to be stableContinue Levothyroxine 25 MCG and advised to take it first thing in the morning on an empty stomach. GERD. Continue Omeprazole 20 MG daily. Prostate cancer. s/p prostatectomy in [address] Khan since she retired Status post recent left Parotid surgery reconstruction surgery diagnosis of squamous cell carcinoma has been seen by plastic surgery at [facility] doctor Med June 01, 2024. He is status post chemo and radiation and neck dissection and 3 out of 34 lymph nodes were positive and he follows with [facility]. [place]. Sleep is stable on CPAP and sees Dr. Barbosa. He uses his inhalers as needed. Polycythemia vera. He is on Aspirin 81 MG, Hydroxyurea [address] Chavarria.most of his lab work is ordered and followed by hematology Hyperglycemia. A1c 6.8, glucose 153. He sees Dr. Escobar IBS. He sees Jessie JAN Alexandra. He sees Dr. Coats. He uses Ketoconazole, Sulfacetamide Sodium and Mometasone Furoate cream umbilical hernia partially reducible he is not in any pain but is worried we will get a surgical referral for him for evaluation Eye screening. He sees his market risk manager regularly. Dental screening. He sees dentist regularly. Advance directive. He is on full code and his HCP is his Curtis [phone] Colon cancer screening. He is up to date on his colonoscopy and is on 3-csdn-[id number]. 06/19/2025 Rosacea, unspecified (ICD-10 - L71.9) Mr. Johnson is a 72 year old gentleman with GERD, hypothyroidism, kidney stones, IBS and sees Dr. Hendricks, prostate cancer s/p prostatectomy in [address] Torres, actinic keratosis, hyperglycemia and sees Dr. Escobar, rosacea and sees Dr. Coats and polycythemia vera and sees Dr. Chavarria, urethral stricture surgery by Dr. 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 He also complained of lower back pain and he follows with physiatry and pain management. Lumbar radiculopathy. Currently on gabapentin and he is also given OxyContin by Dr. Bennett. Dr. Mccarthy also recommended tramadol which she can take as needed. Advised stretching exercises and he will benefit from physical therapy. Hypothyroidism. Reviewed lab work from July 2024 appears to be stableContinue Levothyroxine 25 MCG and advised to take it first thing in the morning on an empty stomach. GERD. Continue Omeprazole 20 MG daily. Prostate cancer. s/p prostatectomy in [address] Khan since she retired Status post recent left Parotid surgery reconstruction surgery diagnosis of squamous cell carcinoma has been seen by plastic surgery at [facility] doctor Med June 01, 2024. He is status post chemo and radiation and neck dissection and 3 out of 34 lymph nodes were positive and he follows with [facility]. [place]. Sleep is stable on CPAP and sees Dr. Barbosa. He uses his inhalers as needed. Polycythemia vera. He is on Aspirin 81 MG, Hydroxyurea [address] Chavraria.most of his lab work is ordered and followed by hematology Hyperglycemia. A1c 6.8, glucose 153. He sees Dr. Luz BECERRIL. He sees Jessie Alexandra. He sees Dr. Coats. He uses Ketoconazole, Sulfacetamide Sodium and Mometasone Furoate cream umbilical hernia partially reducible he is not in any pain but is worried we will get a surgical referral for him for evaluation Eye screening. He sees his market risk manager regularly. Dental screening. He sees dentist regularly. Advance directive. He is on full code and his HCP is his Curtis [phone] Colon cancer screening. He is up to date on his colonoscopy and is on 1-xjlz-ysfte. 09/02/2024 Rosacea, unspecified (ICD-10 - L71.9) Mr. Johnson is a 72 year old gentleman with GERD, hypothyroidism, kidney stones, IBS and sees Dr. Hendricks, prostate cancer s/p prostatectomy in [address] Veras, actinic keratosis, hyperglycemia and sees Dr. Escobar, ibrahima and sees Dr. Coats and polycythemia vera [...] has been seen by plastic surgery at [facility] doctor Med June 01, 2024 [place]. Sleep is stable on CPAP and sees Dr. Barbosa. He uses his inhalers as needed. Polycythemia vera. He is on Aspirin 81 MG, Hydroxyurea [address] Chavarria.most of his lab work is ordered and followed by hematology Hyperglycemia. A1c 6.8, glucose 153. He sees Dr. uLz BECERRIL. He sees Dr. Hendricks. heart murmur no chest pain no shortness of breath and EKG was completed today which showed normal sinus rhythm heart rate 76 bpm and QTC 422 [address] [place] and 12 over some premature ventricular complexes but no AV blocks. No acute ST changes, EKG was reviewed by me Alexandra. He sees Dr. Coats. He uses Ketoconazole, Sulfacetamide Sodium and Mometasone Furoate cream umbilical hernia partially reducible he is not in any pain but is worried we will get a surgical referral for him for evaluation Eye screening. He sees his market risk manager regularly. Dental screening. He sees dentist regularly. Advance directive. He is on full code and his HCP is his Curtis [phone] Colon cancer screening. He is up to date on his colonoscopy and is on 7-zznc-[id number]. flu shot will be given today General [...] has been seen by plastic surgery at [facility] doctor Med June 01, 2024 [place]. Sleep [...] 76 bpm and QTC 422 [address] [place] and 12 over some premature ventricular complexes but no AV blocks. No acute ST changes, EKG was reviewed by me Alexandra. He sees Dr. Coats. He uses Ketoconazole, Sulfacetamide Sodium and Mometasone Furoate cream umbilical hernia partially reducible he is not in any pain but is worried we will get a surgical referral for him for evaluation Eye screening. He sees his market risk manager regularly. Dental screening. He sees dentist regularly. Advance directive. He is on full code and his HCP is his Curtis [id number] Colon cancer screening. He is up to date on his colonoscopy and is on 8-bafa-zhzyi. flu shot will be given today General health concerns discussed with patient. 06/19/2025 Varicose veins of bilateral lower extremities with pain (ICD-10 - I83.813) Mr. Johnson is a 72 year old gentleman with GERD, hypothyroidism, kidney stones, IBS and sees Dr. Hendricks, prostate cancer s/p prostatectomy in [address] Torres, actinic keratosis, hyperglycemia and sees Dr. Escobar, ibrahima and sees Dr. Coats and polycythemia vera and sees Dr. Chavarria, urethral stricture surgery by Dr. 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 He also complained of lower back pain and he follows with physiatry and pain management. Lumbar radiculopathy. Currently on gabapentin and he is also given OxyContin by Dr. Bennett. Dr. Mccarthy also recommended tramadol which she can take as needed. Advised stretching exercises and he will benefit from physical therapy. Hypothyroidism. Reviewed lab work from July 2024 appears to be stableContinue Levothyroxine 25 MCG and advised to take it first thing in the morning on an empty stomach. GERD. Continue Omeprazole 20 MG daily. Prostate cancer. s/p prostatectomy in [address] Veraspraoneida since she retired Status post recent left Parotid surgery reconstruction surgery diagnosis of squamous cell carcinoma has been seen by plastic surgery at [facility] doctor Med June 01, 2024. He is status post chemo and radiation and neck dissection and 3 out of 34 lymph nodes were positive and he follows with [facility]. [place]. Sleep is stable on CPAP and sees Dr. Barbosa. He uses his inhalers as needed. Polycythemia vera. He is on Aspirin 81 MG, Hydroxyurea [address] Chavarria.most of his lab work is ordered and followed by hematology Hyperglycemia. A1c 6.8, glucose 153. He sees Dr. Luz BECERRIL. He sees Jessie JAN Alexandra. He sees Dr. Coats. He uses Ketoconazole, Sulfacetamide Sodium and Mometasone Furoate cream umbilical hernia partially reducible he is not in any pain but is worried we will get a surgical referral for him for evaluation Eye screening. He sees his market risk manager regularly. Dental screening. He sees dentist regularly. Advance directive. He is on full code and his HCP is his Curtis [phone] Colon cancer screening. He is up to date on his colonoscopy and is on 5-ylcf-[id number]. 09/02/2024 Varicose veins of bilateral lower extremities with pain (ICD-10 - I83.813) Mr. Johnson is a 72 year old gentleman with GERD, hypothyroidism, kidney stones, IBS and sees Dr. Hendricks, prostate cancer s/p prostatectomy in [address] Veras, actinic keratosis, hyperglycemia and sees Dr. Escobar, ibrahima and sees Dr. Coats and polycythemia vera [...] prostatectomy in [address] Khan since she retired status post recent left ear surgery reconstruction surgery diagnosis of squamous cell carcinoma has been seen by plastic surgery at [facility] doctor Med June 01, 2024 [place]. Sleep [...] 76 bpm and QTC 422 [address] [place] and 12 over some premature ventricular complexes but no AV blocks. No acute ST changes, EKG was reviewed by me Alexandra. He sees Dr. Coats. He uses Ketoconazole, Sulfacetamide Sodium and Mometasone Furoate cream umbilical hernia partially reducible he is not in any pain but is worried we will get a surgical referral for him for evaluation Eye screening. He sees his market risk manager regularly. Dental screening. He sees dentist regularly. Advance directive. He is on full code and his HCP is his Curtis [phone] Colon cancer screening. He is up to date on his colonoscopy and is on 3-uncj-fixxh. flu shot will be given today General health concerns discussed with patient. 06/19/2025 Encounter for screening for cardiovascular disorders (ICD-10 - Z13.6) Mr. Johnson is a 72 year old gentleman with GERD, hypothyroidism, kidney stones, IBS and sees Dr. Hendricks, prostate cancer s/p prostatectomy in [address] Torres, actinic keratosis, hyperglycemia and sees ibrahima Greene and sees Dr. Coats and polycythemia vera and sees Dr. Chavarria, urethral stricture surgery by Dr. 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 He also complained of lower back pain and he follows with physiatry and pain management. Lumbar radiculopathy. Currently on gabapentin and he is also given OxyContin by Dr. Bennett. Dr. Mccarthy also recommended tramadol which she can take as needed. Advised stretching exercises and he will benefit from physical therapy. Hypothyroidism. Reviewed lab work from July 2024 appears to be stableContinue Levothyroxine 25 MCG and advised to take it first thing in the morning on an empty stomach. GERD. Continue Omeprazole 20 MG daily. Prostate cancer. s/p prostatectomy in [address] Khan since she retired Status post recent left Parotid surgery reconstruction surgery diagnosis of squamous cell carcinoma has been seen by plastic surgery at [facility] doctor Med June 01, 2024. He is status post chemo and radiation and neck dissection and 3 out of 34 lymph nodes were positive and he follows with [facility]. [place]. Sleep is stable on CPAP and sees Dr. Barbosa. He uses his inhalers as needed. Polycythemia vera. He is on Aspirin 81 MG, Hydroxyurea [address] Chavarria.most of his lab work is ordered and followed by hematology Hyperglycemia. A1c 6.8, glucose 153. He sees Dr. Escobar IBS. He sees Jessie JAN Alexandra. He sees Dr. Coats. He uses Ketoconazole, Sulfacetamide Sodium and Mometasone Furoate cream umbilical hernia partially reducible he is not in any pain but is worried we will get a surgical referral for him for evaluation Eye screening. He sees his market risk manager regularly. Dental screening. He sees dentist regularly. Advance directive. He is on full code and his HCP is his Curtis [phone] Colon cancer screening. He is up to date on his colonoscopy and is on 1-dsfi-[id number]. Plan Of Treatment Pending Test Test Name Order Date GLUCOSE 08/28/2023 Future Test Test Name Order Date CBC With Differential/[id number] TSH+Free [id number] 06/19/2025 Lipid Panel-[id number] 06/19/2025 Comp. Metabolic Panel [id number] 2024 Next Appt Details Provider Name:TROY LOBO , 09/04/2025 10:00:00 AM, [address] [place] [address], [place], [address], Insurance Providers Payer Name Payer Address Payer Phone Subscriber Number Group Number Insured Name Patient Relationship to Insured Coverage Start Date Coverage End Date Medicare [address] [place] [phone] [id number] Anderson Clay Self - patient is the insured [facility] [address] [place] [address] [id number] Clay Johnson Self - patient is the insured Medical (General) History Medical History History ICD Code GERD hypothyroidism kidney stones IBS and sees Dr. Hendricks polycythemia vera and sees Dr. Chavarria prostate cancer s/p prostatectomy in and he sees Dr. Veras actinic keratosis CHICO on CPAP and sees Dr. Barbosa hyperglycemia and sees Dr. Luz alexandra and sees Dr. 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 Jovel at [facility] April 2024
--- OUTSIDE RECORDS SUMMARY | 2025-08-24 09:26 | XMS_ITS | Encounter Summary ---
Author Organization [facility] Address [address] [facility] [address] [place] [address] Phone Care Team Providers Care Logistics Loss Prevention Manager Name Role Phone Mariely Vargas MD Primary Care Provider Lindsay Perales MD Unavailable Richard Eden DO, Justine Unavailable [phone] Maribel Nur MD, MPH Unavailable Kezia Webb MD Unavailable [phone] Lor Bal MD Unavailable [phone] Mynor Coats MD Unavailable Eliseo Rand RN Unavailable Ayaka [email or web address] Grover Barbosa MD Unavailable Neville Torres MD Unavailable + [phone] Kya Diaz RN Unavailable Naga [email or web address] Yvonne Lewis Unavailable [phone] Brennon Delcid MD, MPH Unavailable + Cathy Schmidt PA-C Unavailable + Encounter Details Date Type Department Care Team (Late st Contact Info) Description 03/27/2025 Procedure Pass [facility] Echocardiography [address] [place] [address] Social History Tobacco Use Types Packs/Day Years [...] as of this encounter Functional Status * Calculated C-SSRS Risk Score (Lifetime/Recent) Answer Date of Assessment Author No Risk Indicated 03/29/2025 5:56 PM EDT Malgorzata Sneed RN * [place] Suicide Severity Rating Scale (Screener/Recent Self-Report) Question Answer Date of Assessment Author 1. Wish to be (Past 1 Month) No 03/29/2025 5:56 PM EDT Keisha Delgado, PHILIPPE 2. Non-Specific Active Suici saran Thoughts (Past 1 Month) No 03/29/2025 5:56 PM EDT Justine Delgado RN 6. Suicidal Behavior (Lifetime) No 5:56 PM EDT Malgorzata Delgado, PHILIPPE documented as of this encounter Plan of Treatment Upcoming Encounters Date Type Department Care Team (Late st Contact Info) Description 06/21/2025 Procedure Pass [facility] Imaging Department, [facility], [place] [address], [address] [place] [address] 07/24/2025 Procedure Pass [facility] Imaging Department, [facility], MRI [address], [address] [place] [address] 08/14/2025 Procedure Pass [facility] Imaging Department, [facility], [place] [address], [address] [place] [address] 08/24/2025 10:00 AM EDT Appointment [facility] Department of Radiation Oncology [address] [facility], [address] [place] [address] Cathy Schmidt PA-C [address] [facility] [place] [address] [email or web address] Brennon Delcid MD, MPH [address] [facility], ASB1- [address]2 [place] [address] [email or web address] 08/31/2025 10:00 AM EDT Office Visit Oral Medicine, [address] [place] [address] Hao Robertson DMD, PhD [address] [place] [address] [email or web address] 09/05/2025 11:00 AM EDT Nutrition Nutrition Department, [address] [address] Zenobia Hebert LDN [address] [place] [address] [email or web address] 09/07/2025 11:00 AM EDT [facility], [address] [place] [address] Maribel Nur MD, MPH [address] [place] [address] [email or web address] Shoshana Fernandez, [facility] [address] [place] [phone] [email or web address] 09/13/2025 9:30 AM EST Blood Draw Laboratory Services, [address], 2nd Floor [place], [place] Libertad Ramos V, DO [address] [place], [place] [email or web address] 09/13/2025 12:30 PM EST Appointment [facility] Imaging Department, [facility], PET/CT [address] [place], [place] Libertad Ramos V, DO [address] [place] [address] [email or web address] 09/13/2025 1:40 PM EST Appointment [facility] Imaging Department, [facility], [place] [address], [address] [place] [address] Cathy Schmidt PA-C [address] [place] [address] [place] [address] Brennon Delcid MD, MPH [address] [place] [address] [email or web address] 09/13/2025 3:30 PM EST Office [facility], [address] [place] [address] Brennon Delcid MD, MPH [address] [place] [address] [email or web address] 09/15/2025 8:30 AM EST Office [facility], [address], [address] [place] [address] Maribel Nur MD, MPH [address] [place] [address] [email or web address] 09/19/2025 9:20 AM EST Office Visit [facility] [address] [place] [address] Alla Escobar MD [address] [place] [address] [address] [place] [address] 09/19/2025 10:00 AM EST Telemedicine Center for Melanoma, [address], 5th [place] [address] Libertad Ramos DO [address] [place] [address] [email or web address] 10/26/2025 11:40 AM EST Appointment Erika Lank Imaging Department, [facility], MRI [address], [address] [place] [address] Libertad Ramos DO [address] [place] [address] [email or web address] 11/07/2025 10:30 AM EST Blood Draw Laboratory Services, [address], 2nd [place] [address] Darinel Ordaz M.D. [facility] [address] [place] [address] [place] [address] [email or web address] 11/07/2025 11:30 AM EST Office Visit Center for Leukemia, Division of Hematologic Oncology, [address] [facility], 8th [place] [address] Darinel Ordaz M.D. [facility] [address] [facility] [place] [address] [email or web address] documented as of this encounter Visit Diagnoses Not on filedocumented in this encounter Care Teams Logistics Loss Prevention Manager Relationship Specialty Start Date End Date Mariely Vargas MD [address] [address] PCP - General Internal Medicine 03/29/24 Lindsay Perales MD [address] [place] [address] [email or web address] Radiation Oncology 07/12/24 Libertad Ramos DO [address] [place] [address] [email or web address] Medical Oncology 12/22/24 Maribel Nur MD, MPH [address] [place] [address] [email or web address] Otolaryngology 12/22/24 Kezia Webb MD [address] [place] [address] [email or web address] Dermatology 12/22/24 Lor Bal MD [address] [place] [phone] [email or web address] Internal Medicine 12/22/24 Mynor Coats MD [address] [address] Dermatology 01/02/25 Eliseo Rand, PHILIPPE [address] [place] [address] [email or web address] Associate Infusion Nurse 01/02/25 Grover Barbosa MD [address] [place] [address] [place] [address] Bin Tripper Operator Pulmonary Disease 01/05/25 Neville Torres MD [address] [address] [email or web address] Urology 01/27/25 Kya Diaz, PHILIPPE [address] [email or web address] Associate Infusion Nurse 01/23/25 Yvonne Lewis [address] [place] [address] [email or web address] Beater Worker Helper 04/13/25 Brennon Delcid MD, MPH [address] [place] [address], ASB1- L2 [place] [address] [email or web address] Radiation Oncology 06/02/25 Cathy Schmidt PA-C [address] [place] [address] [place] [address] [email or web address] Physician Certified Caregiver 06/14/25 documented as of this encounter Additional Source Comments The information contained in this document represents components of the legal health record. It is not the complete legal health record.[facility]
--- OUTSIDE RECORDS SUMMARY | 2025-08-24 09:26 | XMS_ITS | Encounter Summary ---
Author Organization [facility] Address [address] [place] [address] Care Team Providers Care Paper Guillotine Operator Name Role Phone Mariely Vargas MD Primary Care Provider [phone] Encounter Details Date Type Department Care Team (Late Contact Info) Description 09/23/2024 Lab Requisition [facility] - Main Lab [address] [place] [phone] Dorie Thompson, [place] [address] [address] Dysuria Social History Tobacco Use Types Packs/Day [...] PM EDT documented as of this encounter Plan of Treatment Upcoming Encounters Date Type Department Care Team (Late Contact Info) Description 09/05/2025 9:30 AM EDT Office Visit [facility] Hematology Oncology [address] [place] [address] Lor Bal MD [address] [place] [address] documented as of this encounter Procedures Procedure Name Priority Date/Time Associated Diagnosis Comments BACTERIAL IDENTIFICATION AND SUSCEPTIBILITY, AEROBIC Routine 09/22/2024 10:45 AM EST Dysuria documented in this encounter Results * (ABNORMAL) Bacterial identification and susceptibility, aerobic (09/22/2024 10:45 AM EST) Culture, Bacterial ID and Sensitivity Klebsiella pneumoniae ssp pneumoniae(A) LOVE 09/24/2024 9:01 AM EST [facility] Comment: This is an edited [...] MICROBIOLOGY - GENERAL ORDER KEVIN Final Result [facility] [address] [place] [address], documented in this encounter Visit Diagnoses Diagnosis Dysuria documented in this encounter Additional Health Concerns Infection Onset Date Last Indicated Resolved Time CRE 02/17/2025 02/17/2025 MDRO (other) 02/17/2025 02/17/2025 Respiratory Rule-Out 07/26/2025 07/26/2025 025 10:50 PM EDT COVID-19 Rule-Out 07/26/2025 07/26/2025 07/26/2025 10:50 PM EDT documented as of this encounter Care Teams Paper Guillotine Operator Relationship Specialty Start Date End Date Mariely Vargas MD [address] [place] [address] PCP - General 05/29/22 documented as of this encounter
--- OUTSIDE RECORDS SUMMARY | 2025-08-24 09:26 | XMS_ITS ---
Author Organization [facility] Address [address] [facility] [address] [place] [address] Phone Care Team Providers Care Digital Campaign Specialist Name Role Phone Mariely Vargas MD Primary Care Provider [phone] Lindsay Perales MD Unavailable [phone] Richard Eden DO, Justine Unavailable [phone] Maribel Nur MD, MPH Unavailable Kezia Webb MD Unavailable [phone] Lor Bal MD Unavailable [phone] Mynor Coats MD Unavailable Eliseo Rand RN Unavailable Ayaka 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 Chavarria and Dr. Green. He describes that the lesions in his neck had a remarkable shrinkage. He underwent surgery with Maribel Nur on 03/29/2025 and pathology showed little treatment effect with > 80% viable tumor. There was metastatic carcinoma in 3/34 nodes. He finished radiation 06/14/2025. His treatment has been complicated by a herniated disc which is causing him much distress. Transitioned to surveillance. He felt well for one month and declined significantly since then with thrush, burning mouth and recurrent pneumonia. Treated with antibiotics, nystatin, fluconazole. I am recommending consult with oral medicine and continuing treatment for thrush. Next scan due in 3 months. Cutaneous squamous cell carcinoma, locally advanced S/p 4 cycles of neoadjuvant cemiplimab and surgery with 3/34 nodes involved - Finished adjuvant radiation 06/14/2025 - Lavern converted to 0 - checking every 3 months - PET-CT 3 months after finishing radiation - scheduled for 09/13 PV and potentially CLL - Diagnosed by Hansel Green - followed by Dr. Green and Dr. Chavarria - Holding hydroxyuria Herniated disc L4-L5, better - Oxycontin 20mg BID - Ongoing PT - Saw spinal surgery - Gabapentin 300mg TID - will taper off over the next month Mucositis and burning mouth, unclear etiology - Magic mouthwash PRN - referral to oral medicine - Completing treatment for thrush with fuconazole Pneumonia, admission 06/28-06/30 - treated with prolonged course of antibiotics - Readmitted 07/26-07/28 - treated with repeat course of antibiotics Assessment & Plan (06/17/2025 10:28 AM EDT): [...] the first two cycles with me at [facility] and the 3rd and 4th cycles locally [...] Chavarria - Holding hydroxyuria - Referred to [facility] - Reviewing bone marrow biopsy results tomorrow [...] the first two cycles with me at [facility] and the 3rd and 4th cycles locally [...] He may elect to also see a screw machine tool setter at [facility] while he is here getting radiation. His [...] - holding hydroxyuria - consider referral to [facility] - reviewing bone marrow biopsy results tomorrow [...] and looking forward to his trip to [place]. Cutaneous squamous cell carcinoma, locally advanced - [...] Plans CEMIPLIMAB* Plan Start Date:01/02/2025 Plan Provider:Libertad aRmos DO Linked Problems Squamous cell carcinoma of s kin Treatment Medications cemiplimab-rwlc IVPB Bag Past Treatment and Therapy Plans No past plan information found. Radiation Treatments * Course C1 05/10/2025 - 06/14/2025 Treatment Period Energy Fraction Dose Fractions Total Dose Plans Planned A1_LEarParoNk^A1_L Ear Parotid Neck 05/10/2025 - 06/14/2025 200 cGy 25 / 25 5,000 cGy Reference Points Delivered A_LEarParoNk 05/10/2025 [...] FNA of this nodule on 01/08/2023 at [facility] and the cytology was insufficient for diagnosis. [...] FNA of this nodule on 01/08/2023 at [facility] and the cytology was insufficient for diagnosis. [...] 12/20/2024 Skin cancer of nose 12/29/2017 12/20/19 25 Overview (12/20/2024): Type of cancer not indicated, removed 09/2013 Chronic gout 05/26/2017 12/20/2024 Hyperglycemia 05/26/2017 12/20/2024 Obstructive sleep apnea syndrome 05/26/2017 12/20/2024 Overview (12/20/2024): Obstructive sleep apnea (adult) (pediatric); Note: Date Diagnosed: 04/04/2020 9:58 AM (G47.33) Acquired hypothyroidism 05/26/201712/10
--- OUTSIDE RECORDS SUMMARY | 2025-08-24 09:26 | XMS_ITS | Encounter Summary ---
Author Organization [facility] Address [address] [facility] [address] [place] [address] Phone Care Team Providers Care Telephone Assembler Name Role Phone Mariely Vargas MD Primary Care Provider Lindsay Perales MD Unavailable Richard Eden DO, Justine Unavailable [phone] Maribel Nur MD, MPH Unavailable Kezia Webb MD Unavailable [phone] Lor Bal MD Unavailable [phone] Mynor Coats MD Unavailable Eliseo Rand RN Unavailable [email or web address] Grover Barbosa MD Unavailable Neville Torres MD Unavailable + [phone] Kya Diaz RN Unavailable Naga [email or web address] Yvonne Lewis Unavailable [phone] Brennon Delcid MD, MPH Unavailable + Cathy Schmidt PA-C Unavailable + Encounter Details Date Type Department Care Team (Late st Contact Info) Description 03/29/2025 Procedure Pass [facility] Periop [address] [place] [address] Social History Tobacco Use Types Packs/Day Years [...] Risk Indicated 03/29/2025 5:56 PM EDT Malgorzata Sneed, PHILIPPE * [place] Suicide Severity Rating Scale (Screener/Recent Self-Report) Question [...] Info) Description 06/21/2025 Procedure Pass [facility] Imaging Department, [facility], [place] [address], [address] [place] [address] 07/24/2025 Procedure Pass [facility] Imaging Department, [facility], MRI [address], Floor [address] [place] [address] 08/14/2025 Procedure Pass [facility] Imaging Department, [facility], [place] [address], [address] [place] [address] 08/24/2025 10:00 AM EDT Appointment [facility] Department of Radiation Oncology [address], [address] [place] [address] Cathy Schmidt PA-C [address] [facility] [place] [address] [email or web address] Brennon Delcid MD, MPH [address] [facility], ASB1- L2 [place] [address] [email or web address] 08/31/2025 10:00 AM EDT Office Visit Oral Medicine, [address] [place] [address] Hao Robertson DMD, PhD [address] [place] [phone] [email or web address] 09/05/2025 11:00 AM EDT Nutrition Nutrition Department, [address] [address] Zenobia Hebert LDN [address] [place] [address] [email or web address] 09/07/2025 11:00 AM EDT [facility], [address] [place] [address] Maribel Nur MD, MPH [address] [place] [phone] [email or web address] Shoshana Fernandez, [facility]-SIDEWALK INSPECTOR [address] [place] [address] [email or web address] 09/13/2025 9:30 AM EST Blood Draw Laboratory Services, [address], 2nd Floor [place], [place] Libertad Ramos V, DO [address] [place] [address] [email or web address] 09/13/2025 12:30 PM EST Appointment [facility] Imaging Department, [facility], PET/CT [address] [place], [place] Libertad Ramos V, DO [address] [place], [place] [email or web address] 09/13/2025 1:40 PM EST Appointment [facility] Imaging Department, [facility], [place] [address], [address] [place], [place] [phone] Cathy Schmidt PA-C [address] [place] [address] and [facility] [place], [place] [email or web address] Brennon Delcid MD, MPH [address] [place] [phone] [email or web address] 09/13/2025 3:30 PM EST Office [facility], [address], [address] [place] [address] Brennon Delcid MD, MPH [address] [place] [phone] [email or web address] 09/15/2025 8:30 AM EST Office [facility], [address] [place] [address] Maribel Nur MD, MPH [address] [place] [address] [email or web address] 09/19/2025 9:20 AM EST Office Visit [facility] [address] [place] [address] Alla Escobar MD [address] [place] [address] 3rd [place] [address] 09/19/2025 10:00 AM EST Telemedicine Center [facility] Mel[facility]oma, [address], 5th [place] [address] Libertad Ramos DO [address] [place] [phone] [email or web address] 10/26/2025 11:40 AM EST Appointment Erika Lank Imaging Department, [facility], MRI [address] [place] [address], Floor [address]1 [place] [address] Libertad Ramos DO [address] [place] [phone] [email or web address] 11/07/2025 10:30 AM EST Blood Draw Laboratory Services, [address], [address]nd [place] [address] Darinel Ordaz M.D. [facility] [address] [place] [address] [place] [address] [email or web address] 11/07/2025 11:30 AM EST Office Visit [facility], Division of Hematologic Oncology, [facility] [address] [facility], 8th [place] [address] Darinel Ordaz M.D. [facility]uk[facility] [address] [facility] [place] [address] [email or web address] documented as of this encounter Visit Diagnoses Not on filedocumented in this encounter Care Teams Telephone Assembler Relationship Specialty Start Date End Date Mariely Vargas MD [address] [address] PCP - General Internal Medicine 03/29/24 Lindsay Perales MD [address] [place] [phone] [email or web address] Radiation Oncology 07/12/24 Libertad Ramos DO [address] [place] [phone] [email or web address] 12/22/24 Maribel Nur MD, MPH [address] [place] [address] [email or web address] Otolaryngology 12/22/24 Kezia Webb MD [address] [place] [phone] [email or web address] Dermatology 12/22/24 Lor Bal MD [address] [place] [phone] [email or web address] Internal Medicine 12/22/24 Mynor Coats MD [address] [address] Dermatology 01/02/25 Eliseo Rand, PHILIPPE [address] [place] [address] [email or web address] Associate Infusion Nurse 01/02/25 Grover Barbosa MD [address] [place] [address] [place] [address] Local Telephone Operator Pulmonary Disease 01/05/25 Neville Torres MD [address] [address] [email or web address] Urology 01/27/25 Kya Diaz, PHILIPPE [address] [email or web address] Associate Infusion Nurse 01/23/25 Yvonne Lewis [address] [place] [address] [email or web address] Candy Forming Machine Operator 04/13/25 Brennon Delcid MD, MPH [address] [place] [address], ASB1- L2 [place] [address] [email or web address] Radiation Oncology 06/02/25 Cathy Schmidt PA-C [address] [place] [address] [place] [address] [email or web address] Physician Nipple Threader 06/14/25 documented as of this encounter Additional Source Comments The information contained in this document represents components of the legal health record. It is not the complete legal health record.[facility]
--- OUTSIDE RECORDS SUMMARY | 2025-08-24 09:26 | XMS_ITS | Encounter Summary ---
Author Organization [facility] Address [address] [place] [address] Care Team Providers Care Carpet Yarn Winder Operator Name Role Phone Mariely Vargas MD Primary Care Provider [phone] Encounter Details Date Type Department Care Team (Late Contact Info) Description 10/14/2024 Lab Requisition [facility] - Main Lab [address] [place] [phone] Dorie Thompson, PA [address] [address] Frequency of micturition Social History Tobacco Use [...] Description 09/05/2025 9:30 AM EDT Office Visit [facility] Hematology Oncology [address] [place] [phone] Lor Bal MD [address] [place] [address] documented as of this encounter Procedures Procedure Name Priority Date/Time Associated Diagnosis Comments BACTERIAL IDENTIFICATION AND SUSCEPTIBILITY, AEROBIC Routine 10/13/2024 12:00 AM EST Frequency of micturition documented in this encounter Results * (ABNORMAL) Bacterial identification and susceptibility, aerobic (10/13/2024 12:00 AM EST) Culture, Bacterial ID and Sensitivity Klebsiella pneumoniae ssp pneumoniae(A) LOVE 10/15/2024 9:39 AM EST [facility] Comment: This is an edited [...] - GENERAL ORDER KEVIN Final Result [facility]REE SIMMONS [place] ([facility]) HOSPITAL LAB [address] [place] [address], documented in this encounter Visit Diagnoses Diagnosis Frequency of micturition Urinary frequency documented in this encounter Additional Health Concerns Infection Onset Date Last Indicated Resolved Time CRE 02/17/2025 02/17/2025 MDRO (other) 02/17/2025 02/17/2025 Respiratory Rule-Out 07/26/2025 07/26/2025 025 10:50 PM EDT COVID-19 Rule-Out 07/26/2025 07/26/2025 07/26/2025 10:50 PM EDT documented as of this encounter Care Teams Carpet Yarn Winder Operator Relationship Specialty Start Date End Date Mariely Vargas MD [address] [place] [address] PCP - General 05/29/22 documented as of this encounter
--- OUTSIDE RECORDS SUMMARY | 2025-08-24 09:27 | XMS_ITS | Clinical Summary ---
Author Organization [facility] Address [address] [place] [address] Phone Care Team Providers Care Pole Climber Name Role Phone Mariely Vargas MD Primary Care Provider Allergies Active Allergy Reactions Criticality Noted Date Comments Ciprofloxacin Diarrhea Low 05/22/2017 Doxycycline Diarrhea Low 05/22/2020 Penicillins Rash Low 05/22/2017 Takes daily prophylactic keflex without issue Medications omeprazole (PriLOSEC) [address] capsule Take 1 capsule (20 mg total) by mouth daily. Active Lactobacillus acidophilus (PROBIOTIC ORAL) Active UNABLE TO FIND CPAP- inhale into the lungs . [employer] pressure Active fluticasone propionate (FLONASE) 50 mcg/actuation nasal spray Administer 2 sprays into each nostril 1 (one) time each day. Active levothyroxine (SYNTHROID, LEVOTHROID) 25 mcg tablet TAKE 1 TABLET BY MOUTH EVERY DAY 90 tablet 1 025 Active folic acid (FOLVITE) 1 mg tablet Take 1 tablet (1,000 mcg total) by mouth 1 (one) time each day. 90 tablet 3 025 Active acetaminophen (TYLENOL) 500 mg tablet Take 2 tablets (1,000 mg total) by mouth 2 (two) times a day. Active gabapentin (NEURONTIN) 300 mg capsule Take 1 capsule (300 mg total) by mouth every 6 (six) hours. 120 each 11 025 2025 Active guaiFENesin-co deine (ROBITUSSIN-AC ) 100-10 mg/5 mL syrupIndicatio ns:Prostate cancer ([facility] V24, [facility] V28),Acute pneumonia Take 10 mL by mouth every 6 (six) hours if needed for cough. Max Daily Amount: 40 mL 100 mL Active LORazepam (ATIVAN) 0.5 mg tablet Take 1 tablet (0.5 mg total) by mouth every 6 hours as needed. Active ferrous gluconate (FERGON) 324 mg (38 mg iron) tablet Take 1 tablet (324 mg total) by mouth every other day. 15 each 2024 Active diphenhydramin f-hnejebqi-cdl nesium-simethi cone-lidocaine (MAGIC MOUTHWASH) 02-235-368-40- 200 mg/30 mL liquid suspension Use 5 mL in the mouth or throat 4 (four) times a day. Swish and Spit 480 mL Active clobetasoL (TEMOVATE) 0.05 % ointment Apply topically 3 (three) times a day. 15 g 2 Active oxyCODONE (OxyCONTIN) 20 mg 12 hr abuse-deterren t tablet Take 1 tablet (20 mg total) by mouth every 12 (twelve) hours. Do not crush, chew, or split. Max Daily Amount: 40 mg 60 each 025 2024 Active oxyCODONE (OxyCONTIN) 10 mg 12 hr abuse-deterren t tablet Take 1 tablet (10 mg total) by mouth 2 (two) times a day. Do not crush, chew, or split. Max Daily Amount: 20 mg 20 tablet Active Lactobac no.41/Bifidoba ct no.7 (PROBIOTIC-10 ORAL) Take by mouth 2024 Discontinued(S top Taking at Discharge) ipratropium (ATROVENT) 21 mcg (0.03 %) nasal spray 2024 Discontinued(E ntered in Error) tadalafiL (CIALIS) 5 mg tablet Take 1 tablet (5 mg total) by mouth. 024 2024 Discontinued(E ntered in Error) ferrous gluconate (FERGON) 324 mg (38 mg iron) tablet Take 1 tablet (324 mg total) by mouth 1 (one) time each day. 30 each 025 2024 Discontinued ascorbic acid (VITAMIN C) 250 mg tablet Take 1 tablet (250 mg total) by mouth 1 (one) time each day. 30 each 025 2024 Discontinued(E ntered in Error) oxyCODONE (OxyCONTIN) 20 mg 12 hr abuse-deterren t tablet Take 1 tablet (20 mg total) by mouth every 12 (twelve) hours. Do not crush, chew, or split. Max Daily Amount: 40 mg 60 tablet 2024 Discontinued bisacodyL (DULCOLAX) 5 mg EC tablet Take 2 tablets by mouth right before beginning bowel prep. See instructions provided by the office 2 tablet 2024 Discontinued(E ntered in Error) polyethylene glycol (Golytely) 236-22.74-6.74 -5.86 gram solution Take 4L by mouth once for one dose. May substitue any PEG. Starting at 2PM the day before your procedure drink 1 8oz glasses at your own pace until you complete half of the gallon. Finish 2nd half of the gallon at 8PM. 4000 mL 2024 Discontinued(E ntered in Error) Clenpiq 10 mg-3.5 gram- 12 gram/160 mL solution Take 2 Bottles by mouth See administration instructions. 320 mL 2024 Discontinued(E ntered in Error) azithromycin (ZITHROMAX) 250 mg tablet Take 2 tablets (500 mg total) by mouth 1 (one) time each day for 1 day, THEN 1 tablet (250 mg total) 1 (one) time each day for 4 days. 6 tablet 2024 Discontinued(S top Taking at Discharge) guaiFENesin-co deine (ROBITUSSIN-AC ) 100-10 mg/5 mL syrup Take 10 mL by mouth every 6 (six) hours if needed. Max Daily Amount: 40 mL 025 2024 Discontinued(R eorder) diphenhydramin n-xfqtkdwf-ygi nesium-simethi cone-lidocaine (MAGIC MOUTHWASH) [id number]- 200 mg/30 mL liquid suspension Use 5 mL in the mouth or throat 6 (six) times a day. Swish and Spit 480 mL 2 025 2024 Discontinued cephalexin (KEFLEX) 250 mg capsule Take 1 capsule (250 mg total) by mouth 1 (one) time each day at the same time. 024 2024 Discontinued(E ntered in Error) fluconazole (DIFLUCAN) 200 mg tablet Take 1 tablet (200 mg total) by mouth 1 (one) time each day. 025 2024 Discontinued nystatin (MYCOSTATIN) 100,000 unit/mL suspension Take 5 mL (500,000 Units total) by mouth 4 times daily. 025 2024 Discontinued(E ntered in Error) fluconazole (DIFLUCAN) 200 mg tablet Take 1 tablet (200 mg total) by mouth 1 (one) time each day for 7 days. 7 each 025 2024 oxyCODONE (OxyCONTIN) 20 mg 12 hr abuse-deterren t tablet Take 1 tablet (20 mg total) by mouth every 12 (twelve) hours for 3 days. Do not crush, chew, or split. Max Daily Amount: 40 mg 6 each 025 2024 Discontinued(R eorder) cefdinir (OMNICEF) 300 mg capsule Take 1 capsule (300 mg total) by mouth 2 (two) times a day for 5 days. Tolerated cephalosporins without reaction 10 each 025 2024 oxyCODONE (OxyCONTIN) 10 mg 12 hr abuse-deterren t tablet Take 1 tablet (10 mg total) by mouth 2 (two) times a day. Do not crush, chew, or split. Max Daily Amount: 20 mg 2024 Discontinued(R eorder) Active Problems Problem Noted Date Diagnosed Date Radiation-induced esophagitis 07/28/2025 Mucositis 07/28/2025 Daria esophagitis (CMS/[facility] V24, [facility] V28) 0 07/28/2025 Chronic left-sided lumbar radiculopathy 07/27/20 25 Delirium 07/04/2025 Pneumonia of left lower lobe due to infectious o rganism 06/30/2025 Anemia 06/29/2025 Gastrointestinal hemorrhage, unspecified gastrointestinal hemorrhage type 06/29/2025 Moderate protein-calorie malnutrition ([facility] V 24) 05/05/2025 CLL (chronic lymphocytic marcie kemia) ([facility] V24, [facility] V28) 05/05/2025 Anxiety 05/05/2025 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 On antineoplastic chemotherapy 02/16/2025 Drug therapy 02/16/2025 Acute left-sided back pain with sciatica 025 Intractable back pain 02/04/2025 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 05/10 Nephrolithiasis 10/28/2022 Splenomegaly 10/28/2022 Deep venous thrombosis ([facility] V24, [facility] V28 ) 07/29/2022 Overview (12/18/2022): 1998 at time of DX PV Myelofibrosis ([facility] V24, [facility] V28) 022 Post-phlebitic syndrome 07/29/2022 Pulmonary embolus ([facility] V24, [facility] V28) Thrombocytosis 06/26/2020 Irritable bowel syndrome with diarrhea 0 Lung nodule 05/22/2020 Irritable bowel syndrome 12/29/2017 Kidney disease 12/29/2017 Obstructive sleep apnea syndrome 12/29/2017 Overview (12/18/2022): CPAP Pulmonary nodules 12/29/2017 Skin cancer of nose 12/29/2017 Overview (12/18/2022): Type of cancer not indicated, removed 09/2013 Acquired hypothyroidism 05/26/2017 Chronic gout 05/26/2017 Hyperglycemia 05/26/2017 CHICO (obstructive sleep apnea) 05/26/2017 PV (polycythemia vera) ([facility] V24, [facility] V28 ) 05/26/2017 Prostate cancer ([facility] V24, [facility] V28) 05/26 Resolved Problems Problem Noted Date Diagnosed Date Resolved Date Sepsis ([facility] V24, [facility] V28) 07/26/2025 07/28/2025 Encounters Date Type Department Care Team Description 08/23/2025 Telephone Gastroenterology - [address] [phone] Jana Davis MD 08/18/2025 Telephone [facility] Hematology Oncology [address] [place] [phone] Lor Adame MD 07/26/2025 9:07 PM EDT - 07/28/2025 3:22 PM EDT Hospital Encounter [facility] Intermediate Care Unit B [address] [place] [phone] Jose Alan MD Kokkinos, Erika, MD Jones, Christopher, MD Japaridze, Anna, MD Fever, unspecified fever cause (Primary Dx); Other dysphagia; History of radiation therapy Discharge Disposition: Home or Self Care 07/25/2025 9:00 AM EDT Office Visit [facility] Hematology Oncology [address] [place] [phone] Juan Manuel Green MD 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 (Primary Dx) 07/25/2025 8:20 AM EDT - 07/25/2025 11:59 PM EDT Hospital Encounter [facility] Xray [address] [place] [phone] Juan Manuel Green MD Discharge Disposition: Home or Self Care 07/25/2025 8:00 AM EDT - 07/25/2025 11:59 PM EDT Hospital Encounter [facility] Infusion Center [address] [place] [phone] Pneumonia of left lower lobe due to infectious organism (Primary Dx); Skin cancer of nose Discharge Disposition: Home or Self Care 07/18/2025 Telephone Gastroenterology - [address] [phone] Jana Davis MD 07/04/2025 9:30 AM EDT Office Visit [facility] Hematology Oncology [address] [place] [phone] Lor Adame MD Myelofibrosis ([facility] V24, [facility] V28) (Primary Dx); 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; Intractable back pain; Multiple subsegmental pulmonary emboli without acute cor pulmonale ([facility] V24, [facility] V28); Moderate protein-calorie malnutrition ([facility] V24); Thrombocytosis; Splenomegaly; Gastrointestinal hemorrhage, unspecified gastrointestinal hemorrhage type; Anxiety; Acute deep vein thrombosis (DVT) of other specified vein of right lower extremity ([facility] V24, [facility] V28); Pneumonia of left lower lobe due to infectious organism; Delirium 07/04/2025 Telephone Gastroenterology - [address] [phone] Faraz Adams MD 06/30/2025 7:17 AM EDT Anesthesia Event [facility] Endoscopy [address] [place] [phone] Ami Zamora CRNA 06/28/2025 8:37 PM EDT - 06/30/2025 6:33 PM EDT Hospital Encounter [facility] Urology Unit [address] [place] [phone] Marco Antonio Jean MD Jones, Christopher, MD Alam, Aroosa, MD Gastrointestinal hemorrhage, unspecified gastrointestinal hemorrhage type (Primary Dx); Fatigue associated with anemia; Iron deficiency anemia, unspecified iron deficiency anemia type Discharge Disposition: Home or Self Care 06/15/2025 11:04 AM EDT - 06/15/2025 11:59 PM EDT Hospital Encounter [facility] MRI [address] [place] [phone] 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 Discharge Disposition: Home or Self Care 06/15/2025 11:04 AM EDT - 06/15/2025 11:59 PM EDT Hospital Encounter [facility] MRI [address] [place] [phone] 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 Discharge Disposition: Home or Self Care 06/15/2025 11:03 AM EDT - 06/15/2025 11:59 PM EDT Hospital Encounter [facility] MRI [address] [place] [phone] 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 For example, early childhood special educator or elderly care for an older adult? [...] Orientation Straight 06/29/2025 12 :25 PM EDT Obstetrics History Last Filed Vital Signs Vital Sign Reading Time Taken Comments Blood Pressure 124/56 07/28/2025 10:58 AM EDT Pulse 65 07/28/2025 10:58 AM EDT Temperature 36.3 C (97.3 F) 07/28/2025 10:58 AM EDT Respiratory Rate 18 07/28/2025 10:58 AM EDT Oxygen Saturation 99% 07/28/2025 10:58 AM EDT Inhaled Oxygen Concentration - - Weight 78.9 kg (174 lb) 07/27/2025 7:53 AM EDT Height 177.8 cm (5' 10 ) 07/27/2025 7:53 AM EDT Body Mass Index 24.97 07/27/2025 7:53 AM EDT Plan of Treatment Upcoming Encounters Date Type Department Care Team (Late st Contact Info) Description 09/05/2025 9:30 AM EDT Office Visit [facility] Hematology Oncology [address] [place] [phone] Lor Bal MD [address] [place] [phone] Health Maintenance Due Date Last Done Comments Diabetes: Annual Foot Exam 1961 Diabetes: Annual Retina Eye Exam 1961 DTaP,Tdap,and Td Vaccines (1 - Tdap) 1970 Pneumococcal Vaccine: 50+ Years (1 of 2 - PCV) 1970 Zoster Vaccines (1 of 2) 1970 RSV Immunization Adult Patients (1 - Risk 50-74 years 1-dose series) 2001 Hepatitis C Screening 10/16/2022 Medicare Annual Wellness Visit 08/22/2023 08/22/2022 Depression Screening 11/09/2024 COVID-19 Vaccine ( season) 2025 09/04/2022, 03/06/2022, 08/22/2021, Additional history exists Influenza Vaccine (#1) 2025 , 09/01/2023, 08/29/2022, Additional history exists Diabetes: Annual Urine Albumin-Creatinine Ratio (uACR) 07/28/2025 07/28/2024, 12/31/2023, 12/31/2023 Diabetes: Blood Sugar Control Test (HGBA1C) 12/15/2025 06/14/2025, 01/20/2025, 12/31/2023 Diabetes: Annual GFR (Glomerular Filtration Rate) 07/28/2026 07/28/2025, 07/27/2025, 07/26/2025, Additional history exists Falls Risk Assessment 07/28/2026 07/28/2025 Social Influencers of Health Screening 07/28/2026 07/28/2025 Cholesterol Screening (Lipid Panel) 12/31/2028 12/31/2023, 12/31/2023 Colorectal Cancer Screening: Colonoscopy 07/18/2035 07/18/2025, 07/18/2025, 07/18/2025, Additional history exists HIB Vaccines Aged Out [...] age to complete this topic Meningococcal B Vaccine Aged Out No l onger eligible based on patient's age to complete this topic RSV Immunization Patients Under 20 months Aged Out No longer eligible based on patient's age to complete this topic Varicella Vaccines Aged Out No longer eligible based on patient's age to complete this topic Procedures Procedure Name Priority Date/Time Associated Diagnosis Comments MANUAL DIFFERENTIAL - [facility] WAM Routine 07/28/2025 6:08 AM EDT CBC WITH AUTO DIFFERENTIAL Routine 07/28/2025 6:08 AM EDT CBC AND DIFFERENTIAL Routine 07/28/2025 6:08 AM EDT BASIC METABOLIC PANEL Routine 07/28/2025 6:08 AM EDT MANUAL DIFFERENTIAL - SYSMEX WAM Routine 07/27/2025 4:08 AM EDT CBC WITH AUTO DIFFERENTIAL Routine 07/27/2025 4:08 AM EDT MAGNESIUM Routine 07/27/2025 4:08 AM EDT CBC AND DIFFERENTIAL Routine 07/27/2025 4:08 AM EDT BASIC METABOLIC PANEL Routine 07/27/2025 4:08 AM EDT NUNN URINE CULTURE TUBE STAT 07/27/2025 12:07 AM EDT URINALYSIS WITH REFLEX MICROSCOPIC AND CULTURE STAT 07/27/2025 12:07 AM EDT URINALYSIS WITH REFLEX MICROSCOPIC AND CULTURE STAT 07/27/2025 12:[address] NECK SOFT TISSUE W CONTRAST STAT 07/26/2025 10:55 PM EDT CULTURE BLOOD STAT 07/26/2025 10:14 PM EDT RESPIRATORY VIRUS PANEL MOLECULAR STUDY STAT 07/26/2025 9:51 PM EDT MANUAL DIFFERENTIAL - SYSMEX WAM STAT 07/26/2025 9:49 PM EDT PROCALCITONIN STAT 07/26/2025 9:49 PM EDT CBC WITH AUTO DIFFERENTIAL STAT 07/26/2025 9:49 PM EDT LACTATE, WITH REFLEX STAT 07/26/2025 9:49 PM EDT COMPREHENSIVE METABOLIC PANEL STAT 07/26/2025 9:49 PM EDT CBC AND DIFFERENTIAL STAT 07/26/2025 9:49 PM EDT CULTURE BLOOD STAT 07/26/2025 9:49 PM EDT XR CHEST 1 VIEW STAT 07/26/2025 9:41 PM EDT XR CHEST 2 VIEWS STAT 07/25/2025 8:47 AM EDT Pneumonia of left lower lobe due to infectious organism Skin cancer of nose RBC MORPHOLOGY REVIEW Routine 07/25/2025 8:16 AM EDT Skin cancer of nose FERRITIN STAT 07/25/2025 8:16 AM EDT Skin cancer of nose IRON AND TIBC STAT 07/25/2025 8:16 AM EDT Skin cancer of nose CBC WITH AUTO DIFFERENTIAL Routine 07/25/2025 8:16 AM EDT Skin cancer of nose FOLATE Routine 07/25/2025 8:16 AM EDT Skin cancer of nose TYPE AND SCREEN Routine 07/25/2025 8:16 AM EDT Skin cancer of nose VITAMIN B12 Routine 07/25/2025 8:16 AM EDT Skin cancer of nose MAGNESIUM Routine 07/25/2025 8:16 AM EDT Skin cancer of nose COMPREHENSIVE METABOLIC PANEL Routine 07/25/2025 8:16 AM EDT Skin cancer of nose CBC AND DIFFERENTIAL Routine 07/25/2025 8:16 AM EDT Skin cancer of nose HP LINK COLONOSCOPY Routine 07/18/2025 1 :30 PM EDT EXTERNAL ENDOSCOPY REPORT Routine 07/18/2025 1:29 PM EDT ABDOMINAL ULTRASOUND Routine 07/18/2025 1:27 PM EDT HP LINK COLONOSCOPY Routine 07/18/2025 1 :27 PM EDT EXTERNAL ENDOSCOPY REPORT Routine 07/18/2025 1:26 PM EDT EXTERNAL ENDOSCOPY REPORT Routine 07/18/2025 1:24 PM EDT ABDOMINAL ULTRASOUND Routine 07/18/2025 1:23 PM EDT HP LINK COLONOSCOPY Routine 07/18/2025 1 :[address] ABDOMEN WO CONTRAST Routine 1:16 PM EDT EXTERNAL ENDOSCOPY REPORT Routine 07/18/2025 1:11 PM EDT HP LINK COLONOSCOPY Routine 07/18/2025 1 :[address] ABDOMEN PELVIS WO AND W CONTRAST Routine 07/18/2025 1:08 PM EDT MANUAL DIFFERENTIAL - SYSMEX WAM Routine 07/03/2025 11:13 AM EDT PV (polycythemia vera) (CMS/HCC V24, CMS/HCC V28) CBC WITH AUTO DIFFERENTIAL Routine 07/03/2025 11:13 AM EDT PV (polycythemia vera) (CMS/HCC V24, CMS/HCC V28) FERRITIN Routine 07/03/2025 11:13 AM EDT PV (polycythemia vera) (CMS/HCC V24, CMS/HCC V28) LACTATE DEHYDROGENASE Routine 07/03/2025 11:13 AM EDT PV (polycythemia vera) (CMS/HCC V24, CMS/HCC V28) COMPREHENSIVE METABOLIC PANEL Routine 07/03/2025 11:13 AM EDT PV (polycythemia vera) (CMS/HCC V24, CMS/HCC V28) CBC AND DIFFERENTIAL Routine 07/03/2025 11:13 AM EDT PV (polycythemia vera) (CMS/HCC V24, CMS/HCC V28) TRANSFUSE RED BLOOD CELLS Routine 06/30/2025 1:00 PM EDT PREPARE RBC Routine 06/30/2025 7:34 AM EDT MANUAL DIFFERENTIAL - SYSMEX WAM Routine 06/30/2025 5:19 AM EDT CBC WITH AUTO DIFFERENTIAL Routine 06/30/2025 5:19 AM EDT MAGNESIUM Timed 06/30/2025 5:19 AM EDT CBC AND DIFFERENTIAL Routine 06/30/2025 5:19 AM EDT BASIC METABOLIC PANEL Routine 06/30/2025 5:19 AM EDT ECG ANNOTATED 06/30/2025 CULTURE BLOOD STAT 06/29/2025 1:44 PM EDT CULTURE BLOOD STAT 06/29/2025 1:[address] CHEST WO CONTRAST STAT 06/29/2025 11:52 AM EDT MANUAL DIFFERENTIAL - SYSMEX WAM Routine 06/29/2025 8:08 AM EDT FERRITIN Routine 06/29/2025 8:08 AM EDT IRON AND TIBC Routine 06/29/2025 8:08 AM EDT VITAMIN B12 AND FOLATE STAT 8:08 AM EDT THYROID STIMULATING HORMONE WITH REFLEX TO FREE T4 AND FREE T3 Routine 06/29/2025 8:08 AM EDT CORTISOL Routine 06/29/2025 8:08 AM EDT MAGNESIUM STAT 06/29/2025 8:08 AM EDT CBC WITH AUTO DIFFERENTIAL Routine 06/29/2025 8:08 AM EDT CBC AND DIFFERENTIAL Routine 06/29/2025 8:08 AM EDT BASIC METABOLIC PANEL Routine 06/29/2025 8:08 AM EDT RETICULOCYTE COUNT Routine 06/29/2025 3: 08 AM EDT TYPE AND SCREEN Routine 06/29/2025 3:08 AM EDT HEMOGLOBIN AND HEMATOCRIT STAT 06/29/2025 3:08 AM EDT NUNN URINE CULTURE TUBE Routine 06/29/2025 12:30 AM EDT EXTRA TUBES Routine 06/29/2025 12:30 AM EDT URINALYSIS WITH REFLEX MICROSCOPIC STAT 06/29/2025 12:30 AM EDT URINALYSIS WITH REFLEX MICROSCOPIC STAT 06/29/2025 12:30 AM EDT MANUAL DIFFERENTIAL - SYSMEX WAM STAT 06/28/2025 10:16 PM EDT CBC WITH AUTO DIFFERENTIAL STAT 06/28/2025 10:16 PM EDT CBC AND DIFFERENTIAL STAT 06/28/2025 10:16 PM EDT ACTIVATED PARTIAL THROMBOPLASTIN TIME STAT 06/28/2025 10:16 PM EDT PROTHROMBIN TIME WITH INR STAT 06/28/2025 10:16 PM EDT TROPONIN I HIGH SENSITIVITY STAT 06/28/2025 10:16 PM EDT MAGNESIUM STAT 06/28/2025 10:16 PM EDT LIPASE STAT 06/28/2025 10:16 PM EDT LACTATE STAT 06/28/2025 10:16 PM EDT COMPREHENSIVE METABOLIC PANEL STAT 06/28/2025 10:16 PM EDT B-TYPE NATRIURETIC PEPTIDE STAT 06/28/2025 10:[address] CERVICAL SPINE WO CONTRAST STAT 06/28/2025 10:[address] HEAD WO CONTRAST STAT 06/28/2025 1 0:01 PM EDT XR CHEST 1 VIEW STAT 06/28/2025 9:57 PM EDT ECG 12-LEAD STAT 06/28/2025 8:54 PM EDT MR LUMBAR SPINE WO AND W CONTRAST Routine 06/15/2025 2:00 PM EDT 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 MR THORACIC SPINE WO AND W CONTRAST Routine 06/15/2025 2:00 PM EDT 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 MR CERVICAL SPINE WO AND W CONTRAST Routine 06/15/2025 1:59 PM EDT 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 Neutrophils % 84.0 % LAB HEMETOLOGY METHOD 07/28/2025 8:03 AM T [facility] Lymphocytes % 5.0 % LAB HEMETOLOGY METHOD 07/28/2025 8:03 AM [facility] Monocytes % 2.0 % LAB HEMETOLOGY METHOD 07/28/2025 8:03 AM T [facility] Eosinophils % 3.0 % LAB HEMETOLOGY METHOD 07/28/2025 8:03 AM EDT [facility] Basophils % 3.0 % LAB HEMETOLOGY METHOD 07/28/2025 8:03 AM [facility] Metamyelocytes % 2.0(H) % LAB HEMETOLOGY METHOD 07/28/2025 8:03 AM EDT [facility] Myelocytes % 2.0(H) % LAB HEMETOLOGY METHOD 07/28/2025 8:03 AM [facility] Neutrophils Absolute Manual 9.83(H) 1.50 - 7.00 K/mcL LAB [facility] Lymphocytes Absolute 0.59(L) 1.00 - 5.00 K/mcL LAB HEMETOLOGY METHOD 07[facility]28[facility]2025 [facility] Monocytes Absolute Manual 0.23 0.20 - 1.00 K/mcL LAB HEMETOLOGY METHOD 07/28/2025 8:03 AM [facility] Eosinophils Absolute Manual 0.35 0.00 - 0.50 K/mcL LAB HEMETOLOGY METHOD 07/28/2025 8:03 AM [facility] Basophils Absolute Manual 0.35(H) 0.00 - 0.20 K/mcL LAB HEMETOLOGY METHOD 07/28/2025 8:03 AM [facility] Metamyelocytes Absolute Manual 0.23(H) 0.00 - 0.00 K/mcL LAB HEMETOLOGY METHOD 07/28/2025 8:03 AM [facility] Myelocytes Absolute Manual 0.23(H) 0.00 - 0.00 K/mcL LAB HEMETOLOGY METHOD 07/28/2025 8:03 AM [facility] Rbc Morphology Present( A) Consistent with indices, Normal for [employer] LAB HEMETOLOGY METHOD 07/28/2025 8:03 AM [facility] Platelet Morphology - WAM See Note(A) Normal LAB HEMETOLOGY METHOD 07/28/2025 8:03 AM [facility] Comment:PLT: Normal Ovalocytes Present 11 - 15%(A) (none) LAB HEMETOLOGY METHOD 07/28/2025 8:03 AM EDT [facility] Tear Drop Cells Present 11 - 15%(A) (none) LAB HEMETOLOGY METHOD 07/28/2025 8:03 AM EDT [facility] Blood Venous blood specimen / Unknown Venipuncture / Unknown 07/28/2025 6:08 AM EDT 07/28/2025 6:30 AM EDT us Etelvina Martinez MD LAB BLOOD ORDERABLES Final Res ult [facility] [address] [place] [address], [place] [phone] * (ABNORMAL) CBC auto differential (07/28/2025 6:08 AM EDT) Only the most recent of8 resultswithin the time period is included. WBC 11.7(H) 4.8 - 10.8 K/mcL LAB [facility]EM[facility]OLOGY [facility]28[facility]2025 [facility] RBC 3.20(L) 4.50 - 5.50 M/mcL LAB HEMETOLOGY METHOD 07/28/2025 8:03 AM [facility] Hemoglobin 8.5(L) 13.5 - 17.5 g/dL LAB HEMETOLOGY METHOD 07/28/2025 8:03 AM [facility] Hematocrit 27.4(L) 42.0 - 54.0 % LAB HEMETOLOGY METHOD 07/28/2025 8:03 [facility] MCV 85.9 79.0 - 98.0 FL LAB HEMETOLOGY METHOD 07/28/2025 8:03 AM [facility] MCH 26.6(L) 27.0 - 32.0 pcg LAB HEMETOLOGY METHOD 07/28/2025 8:03 AM [facility] MCHC 31.0(L) 32.0 - 37.0 g/dL LAB HEMETOLOGY METHOD 07/28/2025 8:03 AM EDT [facility] RDW 20.3(H) 11.0 - 15.0 % LAB HEMETOLOGY METHOD 07/28/2025 8:03 AM EDT [facility] Platelets 394 130 - 400 K/mcL LAB HEMETOLOGY METHOD 07/28/2025 8:03 AM EDT [facility] MPV 10.8 7.0 - 11.0 FL LAB HEMETOLOGY METHOD 07/28/2025 8:03 AM EDT [facility] NRBC 0.3 <1.0 % LAB HEMETOLOGY METHOD 07/28/2025 8:03 AM EDT [facility] NRBC Absolute 0.04 <0.10 K/mcL LAB HEMETOLOGY METHOD 07/28/2025 8:03 AM EDT [facility] Blood Venous blood specimen / Unknown Venipuncture / Unknown 07/28/2025 6:08 AM EDT 07/28/2025 6:30 AM EDT us Etelvina Martinez MD LAB BLOOD ORDERABLES Final Res ult [facility] [address] [place] [address], [place] [phone] * (ABNORMAL) Basic metabolic panel (07/28/2025 6:08 AM EDT) Only the most recent of4 resultswithin the time period is included. Sodium 140 133 - 145 mmol/L LAB CHEMISTRY METHOD 07/28/2025 8:08 AM EDT [facility] Potassium 4.3 3.5 - 5.5 mmol/L LAB CHEMISTRY METHOD 07/28/2025 8:08 AM EDT [facility] Chloride 106 96 - 110 mmol/L LAB CHEMISTRY METHOD 07/28/2025 8:08 AM EDT [facility] CO2 29 21 - 32 mmol/L LAB CHEMISTRY METHOD 07/28/2025 8:08 AM [facility] Anion Gap 5 3 - 11 LAB CHEMISTRY METHOD 07/28/2025 8:08 AM [facility] Glucose 115(H) 70 - 100 mg/dL LAB CHEMISTRY METHOD 07/28/2025 8:08 AM [facility] BUN 6 5 - 25 mg/dL LAB CHEMISTRY METHOD 07/28/2025 8:08 AM [facility] Creatinine 0.60(L) 0.70 - 1.30 mg/dL LAB CHEMISTRY METHOD 07/28/2025 8:08 AM [facility] eGFR 102 >=60 mL/min/1. 73m2 LAB CHEMISTRY METHOD 07/28/2025 8:08 AM [facility] Comment:Calculation based on the Chronic Kidney Disease Epidemiology Collaboration (CKD-EPI) equation refit without adjustment for race. BUN/Creatinine Ratio 10.0 LAB CHEMISTRY METHOD 07/28/2025 8:08 AM [facility] Calcium 8.5 8.5 - 10.5 mg/dL LAB CHEMISTRY METHOD 07/28/2025 8:08 AM [facility] Blood Venous blood specimen / Unknown Venipuncture / Unknown 07/28/2025 6:08 AM EDT 07/28/2025 6:30 AM EDT us Etelvina Martinez MD LAB BLOOD ORDERABLES Final Res ult [facility] [address] [place] [address], * Magnesium (07/27/2025 4:08 AM EDT) Only the most recent of5 resultswithin the time period is included. Magnesium 1.9 1.9 - 2.6 mg/dL LAB CHEMISTRY METHOD 07/27/2025 5:21 AM [facility] Blood Venous blood specimen / Unknown Venipuncture / Unknown 07/27/2025 4:08 AM EDT 07/27/2025 4:50 AM EDT us Varun Lovelace MD LAB BLOOD ORDERABLES Final Result [facility] [address] [place] [address], [place] [phone] * (ABNORMAL) Urinalysis with reflex microscopic and culture (07/27/2025 12:07 AM EDT) Specific [place] Urine >1.045(H) 1.003 - 1.030 LAB URINALYSIS - AUTOMATED METHOD 07/27/2025 12:21 AM [facility] pH, Urine 5.5 5.0 - 8.0 pH LAB URINALYSIS - AUTOMATED METHOD 07/27/2025 12:21 AM [facility] Leukocytes, Urine Negative Negative LAB URINALYSIS - AUTOMATED METHOD 07/27/2025 12:21 AM [facility] Nitrite, Urine Negative Negative LAB URINALYSIS - AUTOMATED METHOD 07/27/2025 12:21 AM [facility] Protein, Urine Trace <=Trace mg/dL LAB URINALYSIS - AUTOMATED METHOD 07/27/2025 12:21 AM [facility] Glucose, Urine Negative Negative mg/dL LAB URINALYSIS - AUTOMATED METHOD 07/27/2025 12:21 AM [facility] Ketones, Urine Negative Negative mg/dL LAB URINALYSIS - AUTOMATED METHOD 07/27/2025 12:21 AM [facility] Urobilinogen , Urine 0.2 0.2 - 1.0 mg/dL LAB URINALYSIS - AUTOMATED METHOD 07/27/2025 12:21 AM [facility] Bilirubin, Urine Negative Negative LAB URINALYSIS - AUTOMATED METHOD 07/27/2025 12:21 AM EDT [facility] Blood, Urine Negative Negative LAB URINALYSIS - AUTOMATED METHOD 07/27/2025 12:21 AM EDT [facility] Urine Urine specimen obtained by clean catch procedure / Unknown Non-blood Collection / Unknown 07/27/2025 12:07 AM EDT 07/27/2025 12:16 AM EDT us Jose Alan MD LAB URINE ORDERABLES Fin al Result Performing Organization Address City/[facility] [address]/ZIP Co de Phone Number [facility] [address] [place] [address], [place] [phone] * [place] urine culture tube (07/27/2025 12:07 AM EDT) Only the most recent of2 resultswithin the time period is included. Extra Tube Hold for add-ons. 07/27/2025 2:01 AM EDT [facility] Comment:Auto resulted. Urine Urine specimen obtained by clean catch procedure / Unknown Non-blood Collection / Unknown 07/27/2025 12:07 AM EDT 07/27/2025 12:16 AM EDT us Jose lAan MD LAB URINE ORDERABLES Fin al Result Performing Organization Address City/[facility] [address]/ZIP Co de Phone Number [facility] [address] [place] [address], [place] [phone] * CT Neck Soft Tissue w Contrast (07/26/2025 10:55 PM EDT) Anatomical Region Laterality Modality Head and Neck Computed Tomogra phy 07/26/2025 11:2 2 PM EDT Impressions 07/26/2025 11:22 PM EDT Soft tissue thickening of the left periauricular region with no definite mass seen. Findings may be postsurgical /postradiation in nature. Recurrence of neoplasm can not be excluded. This is grossly unchanged when compared to prior study. This document has been electronically signed by: Michael Cooper MD on 07/26/2025 23:22:37 Narrative 07/26/2025 11:22 PM EDT INDICATION: History of head and neck cancer status post radiation with worsening dysphagia, history of esophagitis and stomatitis CT soft tissue neck with contrast Comparison: CT/KO/ND/SR - NECK C+ CT - 05/17/24 14:11 EDT Findings: The visualized intracranial contents are unremarkable. Pharyngeal mucosal space, parapharyngeal fat, prevertebral tissues, and epiglottis are within normal limits. Salivary glands are within normal limits. No sialoliths. Thyroid gland is unremarkable. Visualized lung apices are clear. No acute fracture or dislocation. Soft tissue thickening of the left periauricular region with no definite mass seen. Findings may be postsurgical /postradiation in nature. Recurrence of neoplasm can not be excluded. This is grossly unchanged when compared to prior study. Procedure Note Michael Cooper MD - 07/26/2025 INDICATION: History of head and neck cancer status post radiation with worsening dysphagia, history of esophagitis and stomatitis CT soft tissue neck with contrast Comparison: CT/KO/ND/SR - NECK C+ CT - 05/17/24 14:11 EDT Findings: The visualized intracranial contents are unremarkable. Pharyngeal mucosal space, parapharyngeal fat, prevertebral tissues, and epiglottis are within normal limits. Salivary glands are within normal limits. No sialoliths. Thyroid gland is unremarkable. Visualized lung apices are clear. No acute fracture or dislocation. Soft tissue thickening of the left periauricular region with no definite mass seen. Findings may be postsurgical /postradiation in nature. Recurrence of neoplasm can not be excluded. This is grossly unchangedwhen compared to prior study. IMPRESSION: Soft tissue thickening of the left periauricular region with no definite mass seen. Findings may be postsurgical /postradiation in nature. Recurrence of neoplasm can not be excluded. This is grossly unchangedwhen compared to prior study. This document has been electronically signed by: Michael Cooper MD on 07/26/2025 23:22:37 us Jose Alan MD IMG CT PROCEDURES Final Result * Blood Culture, Peripheral Draw #1 (07/26/2025 10:14 PM EDT) Only the most recent of4 resultswithin the time period is included. [facility] Culture, Blood No growth at 5 days LAB MICROBIOLOGY METHOD 07/31/2025 11:01 PM EDT [facility] Blood Venous blood specimen / Unknown Venipuncture / Unknown 07/26/2025 10:14 PM EDT 07/26/2025 10:53 PM EDT Tamara Banks MD LAB MICROBIOLOGY - GENERAL ORD ERABLES Final Result [facility] [address] [place] [address], * Respiratory virus panel molecular study (07/26/2025 9:51 PM EDT) [facility] Adenovirus Detection by PCR Not Detected Not Detected LAB MICROBIOLOGY METHOD 07/26/2025 10:50 PM EDT [facility] Influenza A PCR Not Detected Not Detected LAB MICROBIOLOGY METHOD 07/26/2025 10:50 PM EDT [facility] Influenza B PCR Not Detected Not Detected LAB MICROBIOLOGY METHOD 07/26/2025 10:50 PM EDT [facility] Coronavirus 229E Not Detected Not Detected LAB MICROBIOLOGY METHOD 07/26/2025 10:50 PM EDT [facility] Coronavirus HKU1 Not Detected Not Detected LAB MICROBIOLOGY METHOD 07/26/2025 10:50 PM EDT [facility] Coronavirus OC43 Not Detected Not Detected LAB MICROBIOLOGY METHOD 07/26/2025 10:50 PM EDT [facility] Coronavirus NL63 Not Detected Not Detected LAB MICROBIOLOGY METHOD 07/26/2025 10:50 PM EDT [facility] Parainfluenza Virus 1 Not Detected Not Detected LAB MICROBIOLOGY METHOD 07/26/2025 10:50 PM EDT [facility] Parainfluenza Virus 2 Not Detected Not Detected LAB MICROBIOLOGY METHOD 07/26/2025 10:50 PM EDT [facility] Parainfluenza Virus 3 Not Detected Not Detected LAB MICROBIOLOGY METHOD 07/26/2025 10:50 PM EDT [facility] Parainfluenza Virus 4 Not Detected Not Detected LAB MICROBIOLOGY METHOD 07/26/2025 10:50 PM EDT [facility] RSV PCR Not Detected Not Detected LAB MICROBIOLOGY METHOD 07/26/2025 10:50 PM EDT [facility] Human Metapneumovirus A and B Not Detected Not Detected LAB MICROBIOLOGY METHOD 07/26/2025 10:50 PM EDT [facility] Rhinovirus/Entero virus Not Detected Not Detected LAB MICROBIOLOGY METHOD 07/26/2025 10:50 PM EDT [facility] Bordetella pertussis Not Detected Not Detected LAB MICROBIOLOGY METHOD 07/26/2025 10:50 PM EDT [facility] Bordetella parapertussis Not Detected Not Detected LAB MICROBIOLOGY METHOD 07/26/2025 10:50 PM EDT [facility] Mycoplasma pneumo by PCR Not Detected Not Detected LAB MICROBIOLOGY METHOD 07/26/2025 10:50 PM EDT [facility] Chlamydia pneumoniae Not Detected Not Detected LAB MICROBIOLOGY METHOD 07/26/2025 10:50 PM EDT [facility] SARS COV-2 Not Detected Not Detected LAB MICROBIOLOGY METHOD 07/26/2025 10:50 PM EDT [facility] Swab Both anterior nares / Unknown Non-blood Collection / Unknown 07/26/2025 9:51 PM EDT 07/26/2025 9:59 PM EDT [facility] - 07/26/2025 10:50 PM EDT Testing was performed using the [employer] Respiratory Pathogen PCR Assay. All results must be correlated with the clinical findings. Results should not be used as the sole basis for diagnosis. False Negative results may occur from the presence of sequence variants in the region targeted by the assay or the presence of inhibitors. Results may be affected by concurrent antiviral/antimicrobial therapy or levels of organisms that are below the limit of detection. Tamara Banks MD LAB MICROBIOLOGY - GENERAL ORD ERABLES Final Result Performing Organization Address [facility] [address]/ZIP Co de Phone Number [facility] [address] [place] [address], [place] [phone] * Lactate, with reflex (07/26/2025 9:49 PM EDT) Pathologist [facility] LACTIC ACID 1.4 0.4 - 2.0 mmol/L LAB CHEMISTRY METHOD 07/26/2025 10:23 PM EDT [facility] Blood Venous blood specimen / Unknown Venipuncture / Unknown 07/26/2025 9:49 PM EDT 07/26/2025 9:59 PM EDT Tamara Banks MD LAB BLOOD ORDERABLES Final Res ult Performing Organization Address [facility] [address]/[facility] Co de Phone Number [facility] [address] [place] [address], [place] [phone] * (ABNORMAL) Procalcitonin (07/26/2025 9:49 PM EDT) Pathologist [facility] Procalcitonin 0.17(H) <=0.16 ng/mL LAB CHEMISTRY METHOD 07/27/2025 7:54 AM EDT [facility] Blood Venous blood specimen / Unknown Venipuncture / Unknown 07/26/2025 9:49 PM EDT 07/26/2025 9:59 PM EDT Narrative [facility] - 07/27/2025 7:54 AM EDT Procalcitonin > 2.00 ng/ml: Procalcitonin Levels above 2.00 ng/ml, on the first day of ICU admission represent a high risk for progression to severe sepsis and/or septic shock. Procalcitonin < 0.50 ng/ml: Procalcitonin levels below 0.50 ng/ml on the first day of ICU admission represent a low risk for progression to severe sepsis and/or septic shock. Concentrations <0.5 ng/mL do not exclude an infection, on account of local ized infections (without systemic signs) which can be associated with such low concentrations, or a systemic infection in its initial stages (<6 hours). Furthermore, increased procalcitonin can occur without infection. PCT concentrations between 0.5 and 2.0 ng/mL should be interpreted taking into account the patient's history. It is recommended to retest PCT within 6-24 hours if any concentrations <2.0 ng/mL are obtained. us Tamara Banks MD LAB BLOOD ORDERABLES Final Res ult [facility] [address] [place] [address], * (ABNORMAL) Comprehensive metabolic panel (07/26/2025 9:49 PM EDT) Only the most recent of4 resultswithin the time period is included. Sodium 137 133 - 145 mmol/L LAB CHEMISTRY METHOD [facility]2025 10:[facility] Potassium 4.1 3.5 - 5.5 mmol/L LAB CHEMISTRY METHOD 07/26/2025 10:21 PM EDT [facility] Chloride 105 96 - 110 mmol/L LAB CHEMISTRY METHOD 07/26/2025 10:21 PM [facility] CO2 26 21 - 32 mmol/L LAB CHEMISTRY METHOD 07/26/2025 10:21 [facility] Anion Gap 6 3 - 11 LAB CHEMISTRY METHOD 07/26/2025 10:21 PM [facility] Glucose 160(H) 70 - 100 mg/dL LAB CHEMISTRY METHOD 07/26/2025 10:21 PM [facility] BUN 9 5 - 25 mg/dL LAB CHEMISTRY METHOD 07/26/2025 10:21 PM [facility] Creatinine 0.70 0.70 - 1.30 mg/dL LAB CHEMISTRY METHOD 07/26/2025 10:21 PM [facility] eGFR 97 >=60 mL/min/1. 73m2 LAB CHEMISTRY METHOD 07/26/2025 10:21 PM [facility] Comment:Calculation based on the Chronic Kidney Disease Epidemiology Collaboration (CKD-EPI) equation refit without adjustment for race. BUN/Creatinine Ratio 12.9 LAB CHEMISTRY METHOD 07/26/2025 10:21 PM [facility] Calcium 8.4(L) 8.5 - 10.5 mg/dL LAB CHEMISTRY METHOD 07/26/2025 10:21 PM [facility] AST (SGOT) 20 10 - 42 unit/L LAB CHEMISTRY METHOD 07/26/2025 10:21 PM [facility] ALT (SGPT) 16 10 - 60 unit/L LAB CHEMISTRY METHOD 07/26/2025 10:21 PM [facility] Alkaline Phosphatase 86 42 - 121 unit/L LAB CHEMISTRY METHOD 07/26/2025 10:21 PM [facility] Total Protein 5.9(L) 6.0 - 8.0 g/dL LAB CHEMISTRY METHOD 07/26/2025 10:21 PM [facility] Albumin 3.4 3.2 - 5.0 g/dL LAB CHEMISTRY METHOD 07/26/2025 10:21 PM [facility] Total Bilirubin 0.6 0.0 - 1.4 mg/dL LAB CHEMISTRY METHOD 07/26/2025 10:21 PM [facility] Blood Venous blood specimen / Unknown Venipuncture / Unknown 07/26/2025 9:49 PM EDT 07/26/2025 9:59 PM EDT us Tamara Banks MD LAB BLOOD ORDERABLES Final Res ult [facility] [address] [place] [address], [place] [phone] * XR Chest 1 View (07/26/2025 9:41 PM EDT) Only the most recent of2 resultswithin the time period is included. Anatomical Region Laterality Modality Body Radiographic Carolyn ging 07/27/2025 10:0 6 AM EDT Impressions 07/27/2025 10:07 AM EDT FINDINGS/IMPRESSION: Left retrocardiac opacity suspicious for pneumonia. No pleural effusion or pneumothorax. Cardiac silhouette and bones are stable compared to the recent prior exam. -------- FINAL REPORT -------- Dictated By: RAYMOND AMEZQUITA Dictated Date: 07/27/2025 10:06 ET Assigned Physician: RAYMOND AMEZQUITA Reviewed and Electronically Signed By: RAYMOND AMEZQUITA Signed Date: 07/27/2025 10:07 ET Workstation ID: [id number] Transcribed By: Self Edit Transcribed Date: 07/27/2025 10:06 ET Narrative 07/27/2025 10:07 AM EDT XR CHEST 1 VIEW INDICATION: Fever TECHNIQUE: XR CHEST 1 VIEW COMPARISON: 07/25/2025 Procedure Note Raymond Amezquita MD - 07/27/2025 XR CHEST 1 VIEW INDICATION: Fever TECHNIQUE: XR CHEST 1 VIEW COMPARISON: 07/25/2025 IMPRESSION: FINDINGS/IMPRESSION: Left retrocardiac opacity suspicious for pneumonia.No pleural effusion or pneumothorax. Cardiac silhouette and bones arestable compared to the recent prior exam. -------- FINAL REPORT -------- Dictated By: RAYMOND AMEZQUITA Dictated Date: 07/27/2025 10:06 ET Assigned Physician: RAYMOND AMEZQUITA Reviewed and Electronically Signed By: RAYMOND AMEZQUITA Signed Date: 07/27/2025 10:07 ET Workstation ID: [id number] Transcribed By: Self Edit Transcribed Date: 07/27/2025 10:06 ET Tamara Banks MD IMG XR PROCEDURES Final Result * XR Chest 2 Views (07/25/2025 8:47 AM EDT) Anatomical Region Laterality Modality Body Radiographic Carolyn ging 07/25/2025 9:04 AM EDT Impressions 07/25/2025 9:06 AM EDT Coarse heterogeneous opacities projecting over the lung bases on the lateral view, likely residua of pneumonia evident on a 06/29/[address] -------- FINAL REPORT -------- Dictated By: Nikos Alvarenga Dictated Date: 07/25/2025 09:04 ET Assigned Physician: Nikos Alvarenga Reviewed and Electronically Signed By: Nikos Alvarenga Signed Date: 07/25/2025 09:06 ET Workstation ID: [id number] Transcribed By: Self Edit Transcribed Date: 07/25/2025 09:04 ET Narrative 07/25/2025 9:06 AM EDT PROCEDURE: PA and lateral radiographs of the chest. HISTORY: dyspnea previous history of pneumonia in June 2025 requiring hospitalization. COMPARISON: 06/28/2025. CT 06/29/2025. FINDINGS: There are coarse heterogeneous somewhat linear opacities projecting at the bases on the lateral view, more extensive on the left. Cardiomediastinal contours are normal. The pleural spaces and pulmonary vasculature are normal. Procedure Note Nikos Alvarenga MD - 07/25/2025 PROCEDURE: PA and lateral radiographs of the chest. HISTORY: dyspnea previous history of pneumonia in June 2025 requiring hospitalization. COMPARISON: 06/28/2025. CT 06/29/2025. FINDINGS: There are coarse heterogeneous somewhat linear opacities projecting at thebases on the lateral view, more extensive on the left. Cardiomediastinal contours are normal. The pleural spaces and pulmonaryvasculature are normal. IMPRESSION: Coarse heterogeneous opacities projecting over the lung bases on thelateral view, likely residua of pneumonia evident on a 08/21/2025comparison chest CT. -------- FINAL REPORT -------- Dictated By: Nikos Alvarenga Dictated Date: 07/25/2025 09:04 ET Assigned Physician: Nikos Alvarenga Reviewed and Electronically Signed By: Nikos Alvarenga Signed Date: 07/25/2025 09:06 ET Workstation ID: [id number] Transcribed By: Self Edit Transcribed Date: 07/25/2025 09:04 ET us Juan Manuel Green MD IMG XR PROCEDURES Final Result * (ABNORMAL) RBC morphology review (07/25/2025 8:16 AM EDT) Rbc Morphology Present( A) Consistent with indices, Normal for [employer] LAB HEMETOLOGY METHOD 07/25/2025 10:14 AM EDT [facility] Platelet Morphology - WAM See Note(A) Normal LAB HEMETOLOGY METHOD 07/25/2025 10:14 AM EDT [facility] Comment:PLT: Normal Polychromasia Present Present( A) (none) LAB HEMETOLOGY METHOD 07/25/2025 10:14 AM EDT [facility] Ovalocytes Present 5 - 10%(A) (none) LAB HEMETOLOGY METHOD 07/25/2025 10:14 AM EDT [facility] Tear Drop Cells Present 5 - 10%(A) (none) LAB HEMETOLOGY METHOD 07/25/2025 10:14 AM EDT [facility] Blood Venous blood specimen / Unknown Venipuncture / Unknown 07/25/2025 8:16 AM EDT 07/25/2025 8:42 AM EDT us Juan Manuel Green MD LAB BLOOD ORDERABLES Final Res ult [facility] [address] [place] [address], [place] [phone] * (ABNORMAL) Iron and TIBC (07/25/2025 8:16 AM EDT) Only the most recent of2 resultswithin the time period is included. Iron 32(L) 50 - 160 mcg/dL LAB CHEMISTRY METHOD 07/25/2025 10:23 AM EDT [facility] TIBC 204(L) 250 - 450 mcg/dL LAB CHEMISTRY METHOD 07/25/2025 10:23 AM EDT [facility] Iron Saturation 16(L) 20 - 50 % LAB CHEMISTRY METHOD 07/25/2025 10:23 AM EDT [facility] Blood Venous blood specimen / Unknown Venipuncture / Unknown 07/25/2025 8:16 AM EDT 07/25/2025 8:42 AM EDT us Juan Manuel Green MD LAB BLOOD ORDERABLES Final Res ult Performing Organization Address City/[facility] [address]/ZIP Co de Phone Number [facility] [address] [place] [address], [place] [phone] * Type and screen (07/25/2025 8:16 AM EDT) Only the most recent of2 resultswithin the time period is included. Pathologist [facility] ABO Group A 07/25/2025 10:02 AM EDT [facility] Rh Type Positive 07/25/2025 10:02 AM EDT [facility] Antibody Screen Negative 07/25/2025 10:02 AM EDT [facility] Blood Venous blood specimen / Unknown Venipuncture / Unknown 07/25/2025 8:16 AM EDT 07/25/2025 8:42 AM EDT us Juan Manuel Green MD LAB BLOOD BANK TEST ORDERABLES Final Result Performing Organization Address City/[facility] [address]/ZIP Co de Phone Number [facility] [address] [place] [address], [place] [phone] * (ABNORMAL) Folate (07/25/2025 8:16 AM EDT) [facility] Folate >20.0(H) 2.8 - 17.0 ng/ml LAB CHEMISTRY METHOD 07/25/2025 9:42 AM EDT [facility] Blood Venous blood specimen / Unknown Venipuncture / Unknown 07/25/2025 8:16 AM EDT 07/25/2025 8:42 AM EDT us Juan Manuel Green MD LAB BLOOD ORDERABLES Final Res ult Performing Organization Address [facility] [address]/ZIP Co de Phone Number [facility] [address] [place] [address], [place] [phone] * Ferritin (07/25/2025 8:16 AM EDT) Only the most recent of3 resultswithin the time period is included. [facility] Ferritin 346 26 - 388 ng/mL LAB CHEMISTRY METHOD 07/25/2025 10:23 AM EDT [facility] Blood Venous blood specimen / Unknown Venipuncture / Unknown 07/25/2025 8:16 AM EDT 07/25/2025 8:42 AM EDT us Juan Manuel Green MD LAB BLOOD ORDERABLES Final Res ult Performing Organization Address City/[facility] [address]/ZIP Co de Phone Number [facility] [address] [place] [address], [place] [phone] * (ABNORMAL) Vitamin B12 (07/25/2025 8:16 AM EDT) [facility] Vitamin B-12 1,146(H) 250 - 900 pcg/mL LAB CHEMISTRY METHOD 07/25/2025 9:42 AM EDT [facility] Blood Venous blood specimen / Unknown Venipuncture / Unknown 07/25/2025 8:16 AM EDT 07/25/2025 8:42 AM EDT Juan Manuel Green MD LAB BLOOD ORDERABLES Final Res ult [facility] [address] [place] [address], [place] [phone] * HM Colonoscopy (07/18/2025 1:30 PM EDT) Only the most recent of4 resultswithin the time period is included. Historical Provider HEALTH MAINTENANCE Final Result * External Endoscopy (07/18/2025 1:29 PM EDT) Only the most recent of4 resultswithin the time period is included. Anatomical Region Laterality Modality Endoscopy Result [facility] Provider GI~PROCEDURE ORDERABLES F inal Result * Abdominal Ultrasound (07/18/2025 1:27 PM EDT) Result [facility] Historical Provider IN CLINIC/BEDSIDE ORDERAB LES Final Result * Abdominal Ultrasound (07/18/2025 1:23 PM EDT) [facility] Provider IN CLINIC/BEDSIDE ORDERAB LES Final Result * CT Abdomen wo Contrast (07/18/2025 1:16 PM EDT) Anatomical Region Laterality Modality Body Computed Tomogra phy Historical Provider IMG CT PROCEDURES Final R esult * CT Abdomen Pelvis wo and w Contrast (07/18/2025 1:08 PM EDT) Anatomical Region Laterality Modality Body Computed Tomogra phy Historical Provider IMG CT PROCEDURES Final R esult * (ABNORMAL) Lactate dehydrogenase (07/03/2025 11:13 AM EDT) LDH 535(H) 120 - 246 unit/L LAB CHEMISTRY METHOD 07/03/2025 12:12 PM EDT [facility] Blood Venous blood specimen / Unknown Venipuncture / Unknown 07/03/2025 11:13 AM EDT 07/03/2025 11:23 AM EDT Lor Bal MD LAB BLOOD ORDERABLE S Final Result Performing Organization Address City/[facility] [address]/ZIP Co de Phone Number [facility] [address] [place] [address], [place] [phone] * Transfuse RBC (06/30/2025 3:56 PM EDT) us Korina SCOTT BLOOD TRANSFUSION ORDERABL ES Final Result * Prepare RBC: 1 Units (06/30/2025 7:34 AM EDT) [facility] Signature Product Code [id number] 06/30/2025 1:07 PM EDT [facility] Unit Number [id number] 06/30/20 1:07 PM EDT [facility] Crossmatch Compatible 06/30/2025 7:43 AM EDT [facility] Dispense Status Transfused 06/30/2025 1:07 PM EDT [facility] Unit ABO Rh APOS 06/30/2025 1:07 PM EDT [facility] Unit Expiration Date Time [id number] 06/30/2025 1:07 PM EDT [facility] Unit Blood Type 6200 06/30/2025 1:07 PM EDT [facility] Blood Venous blood specimen / Unknown 06/30/2025 7:34 AM EDT 06/29/2025 3:12 AM EDT us Korina SCOTT BLOOD BANK PRODUCT ORDERAB LES Final Result Performing Organization Address City/[facility] [address]/ZIP Co de Phone Number [facility] [address] [place] [address], [place] [phone] * ECG-Annotated (06/30/2025) us Provider Onbase MD ECG ORDERABLES Final Result * CT Chest wo Contrast (06/29/2025 11:52 AM EDT) Anatomical Region Laterality Modality Body Computed Tomogra phy 06/29/2025 12:3 4 PM EDT Impressions 06/29/2025 12:45 PM EDT Left lower lobe pneumonia with trace left effusion. -------- FINAL REPORT -------- Dictated By: Desire De La Torre Dictated Date: 06/29/2025 12:34 ET Assigned Physician: Desire De La Torre Reviewed and Electronically Signed By: Desire De La Torre Signed Date: 06/29/2025 12:45 ET Workstation ID: [id number] Transcribed By: Self Edit Transcribed Date: 06/29/2025 12:34 ET Narrative 06/29/2025 12:45 PM EDT INDICATION: Shortness of breath with left lower lobe infiltrate suspected on portable chest radiograph TECHNIQUE: CT scan of the chest obtained without contrast. Scanner: Reebonz 128 slice VCT Dose reduction technique: ASIR (Adaptive statistical iterative reconstruction) and/or AEC (automated exposure control) Dose: total exam DLP 408 mGY per cm COMPARISON: Chest CT from February 04, 2025. Chest x-ray from June 28, 2025 reviewed. FINDINGS: Lung gamez demonstrate pulmonary consolidation in the left lower lobe consistent with pneumonia. Trace left pleural effusion. Minimal scarring noted within the right lung base with mild atelectatic changes. Similar multiple tiny mediastinal nodes as well as enlarged node posterior to the upper thoracic esophagus measuring 3.5 cm x 1.5 cm x 1 cm, unchanged. Trachea and esophagus are within normal limits. Heart normal in size and shape without pericardial effusion. Unopacified mediastinal vascular structures are grossly normal in course and caliber for the patient's age. Bony structures of the thorax are within normal limits for the patient's age. Splenomegaly again noted measuring up to 20 cm axially, similar to the prior study. Upper aspect of IVC filter noted. Partially imaged 3 mm nonobstructing right renal stone. Multiple calcified gallstones within decompressed gallbladder. Procedure Note Desire De La Torre MD - 06/29/2025 INDICATION: Shortness of breath with left lower lobe infiltrate suspectedon portable chest radiograph TECHNIQUE: CT scan of the chest obtained without contrast. Scanner: Pet [employer]er 128 slice VCT Dose reduction technique: ASIR (Adaptive statistical iterativereconstruction) and/or AEC (automated exposure control) Dose: total exam DLP 408 mGY per cm COMPARISON: Chest CT from February 04, 2025. Chest x-ray from June 28, 2025reviewed. FINDINGS: Lung gamez demonstrate pulmonary consolidation in the left lower lobeconsistent with pneumonia. Trace left pleural effusion. Minimal scarringnoted within the right lung base with mild atelectatic changes. Similar multiple tiny mediastinal nodes as well as enlarged node posteriorto the upper thoracic esophagus measuring 3.5 cm x 1.5 cm x 1 cm,unchanged. Trachea and esophagus are within normal limits. Heart normal in size andshape without pericardial effusion. Unopacified mediastinal vascular structures are grossly normal in courseand caliber for the patient's age. Bony structures of the thorax are within normal limits for the patient'lizette. Splenomegaly again noted measuring up to 20 cm axially, similar to theprior study. Upper aspect of IVC filter noted. Partially imaged 3 mmnonobstructing right renal stone. Multiple calcified gallstones withindecompressed gallbladder. IMPRESSION: Left lower lobe pneumonia with trace left effusion. -------- FINAL REPORT -------- Dictated By: Desire De La Torre Dictated Date: 06/29/2025 12:34 ET Assigned Physician: Desire De La Torre Reviewed and Electronically Signed By: Desire De La Torre Signed Date: 06/29/2025 12:45 ET Workstation ID: [id number] Transcribed By: Self Edit Transcribed Date: 06/29/2025 12:34 ET us Korina CARSON CT PROCEDURES Final Re sult * Thyroid stimulating hormone with reflex to free t4 and free t3 (06/29/2025 8:08 AM EDT) TSH 2.56 0.40 - 4.00 mcIU/mL LAB CHEMISTRY METHOD 06/29/2025 9:56 AM EDT [facility] Blood Venous blood specimen / Unknown Venipuncture / Unknown 06/29/2025 8:08 AM EDT 06/29/2025 8:37 AM EDT Korina Bueno [place] LAB BLOOD ORDERABLES Final Result Performing Organization Address [facility] de Phone Number [facility] [address] [place] [address], [place] [phone] * (ABNORMAL) Vitamin B12 and folate (06/29/2025 8:08 AM EDT) [facility] Vitamin B-12 1,064(H) 250 - 900 pcg/mL LAB CHEMISTRY METHOD 06/29/2025 9:29 AM EDT [facility] Folate >20.0(H) 2.8 - 17.0 ng/ml LAB CHEMISTRY METHOD 06/29/2025 9:29 AM EDT [facility] Blood Venous blood specimen / Unknown Venipuncture / Unknown 06/29/2025 8:08 AM EDT 06/29/2025 8:37 AM EDT us Korina SCOTT LAB BLOOD ORDERABLES Final Result Performing Organization Address [facility] [address]/[facility] de Phone Number [facility] [address] [place] [address], [place] [phone] * Cortisol (06/29/2025 8:08 AM EDT) [facility] Cortisol 21.8 mcg/dL LAB CHEMISTRY METHOD 06/29/2025 9:56 AM EDT [facility] Blood Venous blood specimen / Unknown Venipuncture / Unknown 06/29/2025 8:08 AM EDT 06/29/2025 8:37 AM EDT Narrative [facility] - 06/29/2025 9:56 AM EDT CORTISOL REFERENCE RANGE 8 AM SPEC: 5.0-23.0 mcg/dL 4 PM SPEC: 3.0-16.0 mcg/dL 8 PM SPEC: <5.0 mcg/dL Korina SCOTT LAB BLOOD ORDERABLES Final Result Performing Organization Address [facility] [address]/[facility] Co de Phone Number [facility] [address] [place] [address], * (ABNORMAL) Hemoglobin and hematocrit (06/29/2025 3:08 AM EDT) [facility] Hemoglobin 8.3(L) 13.5 - 17.5 g/dL LAB HEMETOLOGY METHOD 06/29/2025 3:25 AM EDT [facility] Hematocrit 26.3(L) 42.0 - 54.0 % LAB HEMETOLOGY METHOD 06/29/2025 3:25 AM EDT [facility] Blood Venous blood specimen / Unknown Venipuncture / Unknown 06/29/2025 3:08 AM EDT 06/29/2025 3:12 AM EDT Varun Lovelace MD LAB BLOOD ORDERABLES Final Result Performing Organization Address [facility] [address]/[facility] Co de Phone Number [facility] [address] [place] [address], [place] [phone] * (ABNORMAL) Reticulocyte count (06/29/2025 3:08 AM EDT) Retic Ct Abs 0.050 0.030 - 0.090 M/mcL LAB HEMETOLOGY METHOD 06/29/2025 3:17 AM EDT [facility] Retic Ct Pct 1.7 0.7 - 1.7 % LAB HEMETOLOGY METHOD 06/29/2025 3:17 AM EDT [facility] Immature Retic Fract 28.7(H) 2.3 - 15.9 % LAB HEMETOLOGY METHOD 06/29/2025 3:17 AM [facility] Reticulocyte Hemoglobin 25.1(L) >29.0 pcg LAB HEMETOLOGY METHOD 06/29/2025 3:17 AM [facility] Blood Venous blood specimen / Unknown Venipuncture / Unknown 06/29/2025 3:08 AM EDT 06/29/2025 3:12 AM EDT us Varun Lovelace MD LAB BLOOD ORDERABLES Final Result [facility] [address] [place] [address], [place] [phone] * (ABNORMAL) Urinalysis with reflex microscopic (06/29/2025 12:30 AM EDT) Specific [place] Urine 1.020 1.003 - 1.030 LAB URINALYSIS - AUTOMATED METHOD 06/29/2025 1:32 AM [facility] pH, Urine 5.5 5.0 - 8.0 pH LAB URINALYSIS - AUTOMATED METHOD 06/29/2025 1:32 AM [facility] Leukocytes, Urine Small(A) Negative LAB URINALYSIS - AUTOMATED METHOD 06/29/2025 1:32 AM [facility] Nitrite, Urine Negative Negative LAB URINALYSIS - AUTOMATED METHOD 06/29/2025 1:32 AM [facility] Protein, Urine 100(A) <=Trace mg/dL LAB URINALYSIS - AUTOMATED METHOD 06/29/2025 1:32 AM [facility] Glucose, Urine Negative Negative mg/dL LAB URINALYSIS - AUTOMATED METHOD 06/29/2025 1:32 AM [facility] Ketones, Urine Negative Negative mg/dL LAB URINALYSIS - AUTOMATED METHOD 06/29/2025 1:32 AM [facility] Urobilinogen, Urine 1.0 0.2 - 1.0 mg/dL LAB URINALYSIS - AUTOMATED METHOD 06/29/2025 1:32 AM [facility] Bilirubin, Urine Negative Negative LAB URINALYSIS - AUTOMATED METHOD 06/29/2025 1:32 AM [facility] Blood, Urine Negative Negative LAB URINALYSIS - AUTOMATED METHOD 06/29/2025 1:32 AM [facility] RBC, Urine 2.3 0 - 4 /HPF LAB URINALYSIS - AUTOMATED METHOD 06/29/2025 1:32 AM [facility] WBC, Urine 12.5(H) 0 - 4 /HPF LAB URINALYSIS - AUTOMATED METHOD 06/29/2025 1:32 AM [facility] Squamous Epithelial, Urine 29 0 - 60 /LPF LAB URINALYSIS - AUTOMATED METHOD 06/29/2025 1:32 AM [facility] Bacteria, Urine Negative Negative /HPF LAB URINALYSIS - AUTOMATED METHOD 06/29/2025 1:32 AM [facility] Hyaline Casts, Urine 1 0 - 3 /LPF LAB URINALYSIS - AUTOMATED METHOD 06/29/2025 1:32 AM [facility] Urine Urine specimen obtained by clean catch procedure / Unknown Non-blood Collection / Unknown 06/29/2025 12:30 AM EDT 06/29/2025 12:44 AM EDT us Marco Antonio Jean MD LAB URINE ORDERABLES Final Resul t [facility] [address] [place] [address], * Troponin I High Sensitivity (06/28/2025 10:16 PM EDT) High Sensitivity Troponin I 15 <=79 ng/L LAB CHEMISTRY METHOD 06/28/2025 11:06 PM EDT [facility] Blood Venous blood specimen / Unknown Venipuncture / Unknown 06/28/2025 10:16 PM EDT 06/28/2025 10:19 PM EDT Narrative [facility] - 06/28/2025 11:06 PM EDT High levels of biotin in samples may falsely decrease hsTroponin values. Use caution when interpreting hsTroponin results in patients taking biotin who exhibit renal impairment (eGFR <60) or in patients taking more than 20 mg/day of biotin. us Marco Antonio Jean MD LAB BLOOD ORDERABLES Final Resul t Performing Organization Address [facility] [address]/ZIP Co de Phone Number [facility] [address] [place] [address], [place] [phone] * APTT (06/28/2025 10:16 PM EDT) aPTT 34.2 24.1 - 39.3 sec LAB COAGULATION METHOD 06/28/2025 11:04 PM EDT [facility] Blood Venous blood specimen / Unknown Venipuncture / Unknown 06/28/2025 10:16 PM EDT 06/28/2025 10:19 PM EDT us Marco Antonio Jean MD LAB BLOOD ORDERABLES Final Resul t Performing Organization Address City/[facility] [address]/ZIP Co de Phone Number [facility] [address] [place] [address], [place] [phone] * (ABNORMAL) Protime-INR (06/28/2025 10:16 PM EDT) Protime 16.7(H) 10.6 - 13.9 sec LAB COAGULATION METHOD 06/28/2025 11:04 PM EDT [facility] INR 1.3 LAB COAGULATION METHOD 06/28/2025 11:04 PM EDT [facility] Blood Venous blood specimen / Unknown Venipuncture / Unknown 06/28/2025 10:16 PM EDT 06/28/2025 10:19 PM EDT us Marco Antonio Jean MD LAB BLOOD ORDERABLES Final Resul t Performing Organization Address City/[facility] [address]/ZIP Co de Phone Number [facility] [address] [place] [address], [place] [phone] * B-Type Natriuretic Peptide (BNP) (06/28/2025 10:16 PM EDT) [facility] BNP 22 <=100 pcg/mL LAB CHEMISTRY METHOD 06/28/2025 10:55 PM EDT [facility] Blood Venous blood specimen / Unknown Venipuncture / Unknown 06/28/2025 10:16 PM EDT 06/28/2025 10:19 PM EDT us Marco Antonio Jean MD LAB BLOOD ORDERABLES Final Resul t Performing Organization Address City/[facility] [address]/ZIP Co de Phone Number [facility] [address] [place] [address], [place] [phone] * Lipase (06/28/2025 10:16 PM EDT) [facility] Lipase 16 13 - 75 unit/L LAB CHEMISTRY METHOD 06/28/2025 10:47 PM EDT [facility] Blood Venous blood specimen / Unknown Venipuncture / Unknown 06/28/2025 10:16 PM EDT 06/28/2025 10:19 PM EDT us Marco Antonio Jean MD LAB BLOOD ORDERABLES Final Resul t Performing Organization Address City/[facility] [address]/ZIP Co de Phone Number [facility] [address] [place] [address], [place] [phone] * Lactate (06/28/2025 10:16 PM EDT) Lactate 1.2 0.4 - 2.0 mmol/L LAB CHEMISTRY METHOD 06/28/2025 11:06 PM EDT [facility] Blood Venous blood specimen / Unknown Venipuncture / Unknown 06/28/2025 10:16 PM EDT 06/28/2025 10:18 PM EDT us Marco Antonio Jean MD LAB BLOOD ORDERABLES Final Resul t [facility] ([facility]) [facility] [address] [place] [address], [place] [phone] * CT Cervical Spine wo Contrast (06/28/2025 10:01 PM EDT) Anatomical Region Laterality Modality Spine, C-spine Computed Tomogra phy 06/28/2025 11:1 4 PM EDT Impressions 06/28/2025 11:14 PM EDT 1. No acute fracture or traumatic malalignment in the cervical spine. 2. Patchy subcutaneous fat stranding and dermal thickening in the left lateral lower neck. Correlate for local skin/soft tissue inflammation. 3. Degenerative findings as above. See report from recent MR C-spine. This document has been electronically signed by: Anam Parikh MD on 06/28/2025 23:14:24 Narrative 06/28/2025 11:14 PM EDT INDICATION: Neck trauma (Age >= 66y) CT cervical spine without contrast Comparison: MR C-spine 06/15/2025 Findings: Craniocervical junction is unremarkable. Slight reversal of the normal cervical lordosis. Vertebral body heights are maintained. Minimal degenerative anterolisthesis of C2 on C3 and retrolisthesis of C4 on C5. Disc osteophyte complexes at C4-C5 and C5-C6 result in moderate canal stenosis at these levels. Severe right osseous foraminal narrowing at C4-C5. Biapical scarring in the imaged upper thorax. Scattered prominent cervical lymph nodes without pathologic enlargement, likely reactive. Patchy subcutaneous fat stranding and dermal thickening in the left lateral lower neck. Procedure Note Anam Parikh MD - 06/28/2025 INDICATION: Neck trauma (Age >= 66y) CT cervical spine without contrast Comparison: MR C-spine 06/15/2025 Findings: Craniocervical junction is unremarkable. Slight reversal of the normal cervical lordosis. Vertebral body heights are maintained. Minimal degenerative anterolisthesis of C2 on C3 and retrolisthesis ofC4 on C5. Disc osteophyte complexes at C4-C5 and C5-C6 result in moderate canal stenosis at these levels. Severe right osseous foraminal narrowing at C4-C5. Biapical scarring in the imaged upper thorax. Scattered prominent cervical lymph nodes without pathologic enlargement, likely reactive. Patchy subcutaneous fat stranding and dermal thickening in the left lateral lower neck. IMPRESSION: 1. No acute fracture or traumatic malalignment in the cervical spine. 2. Patchy subcutaneous fat stranding and dermal thickening in the left lateral lower neck. Correlate for local skin/soft tissue inflammation. 3. Degenerative findings as above. See report from recent MR C-spine. This document has been electronically signed by: Anam Parikh MD on 06/28/2025 23:14:24 Marco Antonio Jean MD IMG CT PROCEDURES Final Result * CT Head wo Contrast (06/28/2025 10:01 PM EDT) Anatomical Region Laterality Modality Head and Neck Computed Tomogra phy 06/28/2025 11:2 1 PM EDT Impressions 06/28/2025 11:21 PM EDT 1. No acute intracranial findings. 2. Findings suggestive of left otitis externa and early left otitis media, with small reactive left mastoid effusion. Correlate with exam. This document has been electronically signed by: Anam Parikh MD on 06/28/2025 23:21:32 Narrative 06/28/2025 11:21 PM EDT INDICATION: Mental status change, unknown cause CT head without contrast Comparison: None provided Findings: Moderate global parenchymal volume loss with concordant ventricular caliber. Mild chronic microvascular ischemic white matter changes. Faint degenerative mineralization in the basal ganglia. No evidence of acute territorial infarct. No acute intracranial hemorrhage. No abnormal extra-axial collection. No midline shift. Basal cisterns are maintained. Paranasal sinuses are unremarkable. Small left mastoid effusion and trace fluid in the left middle ear. Right mastoid air cells and middle ear is clear. Globes and orbital contents are normal. Calvarium intact. Soft tissue thickening of the left external auditory canal. Procedure Note Anam Parikh MD - 06/28/2025 INDICATION: Mental status change, unknown cause CT head without contrast Comparison: None provided Findings: Moderate global parenchymal volume loss with concordant ventricular caliber. Mild chronic microvascular ischemic white matter changes. Faint degenerative mineralization in the basal ganglia. No evidence of acute territorial infarct. No acute intracranial hemorrhage. No abnormal extra-axial collection. No midline shift. Basal cisterns are maintained. Paranasal sinuses are unremarkable. Small left mastoid effusion and trace fluid in the left middle ear.Right mastoid air cells and middle ear is clear. Globes and orbital contents are normal. Calvarium intact. Soft tissue thickening of the left external auditory canal. IMPRESSION: 1. No acute intracranial findings. 2. Findings suggestive of left otitis externa and early left otitismedia, with small reactive left mastoid effusion. Correlate with exam. This document has been electronically signed by: Anam Parikh MD on 06/28/2025 23:21:32 Marco Antonio Jean MD IMG CT PROCEDURES Final Result * ECG 12 lead (06/28/2025 8:54 PM EDT) Ventricular Rate ECG 89 BPM GEMUSE Atrial Rate 89 BPM GEMUSE P-R Interval 152 ms GEMUSE QRS Duration 98 ms GEMUSE Q-T Interval 368 ms GEMUSE QTc 447 ms GEMUSE P Wave [place]ford -9 degrees GEMUSE R [place] -11 degrees GEMUSE T [place] 33 degrees GEMUSE ECG Interpretation Normal sinus rhythm Normal ECG When compared with ECG of 28-JUN-2025 20:53, (unconfirmed) Nonspecific T wave abnormality no longer evident in Inferior leads Confirmed by JOSE ZAYAS ([id number]) on 06/29/2025 9:51:37 AM GEMUSE 06/28/2025 8:54 PM EDT 06/29/2025 9:51 AM EDT Nito Narayanan MD ECG ORDERABLES Final Res ult GEMUSE * MR Lumbar Spine wo and w Contrast (06/15/2025 2:00 PM EDT) Anatomical Region Laterality Modality L-spine, Spine Magnetic Resonan ce 06/16/2025 3:55 PM EDT Impressions 06/16/2025 4:09 PM EDT 1. Diffuse low T1 marrow signal. This [...] study. 3. No paraspinal mass. -------- FINAL REPORT -------- Dictated By: Nikos Alvarenga Dictated Date: 06/16/2025 15:55 ET Assigned Physician: Nikos Alvarenga Reviewed and Electronically Signed By: Nikos Alvarenga Signed Date: 06/16/2025 16:09 ET Workstation ID: [id number] Transcribed By: Self Edit Transcribed Date: 06/16/2025 15:55 ET Narrative 06/16/2025 4:09 PM EDT PROCEDURE: MRI of the lumbar spine with intravenous contrast. HISTORY: Paraspinal mass/tumor. TECHNIQUE: Sagittal and axial multisequence MRI of the lumbar spine with and without intravenous contrast administration. IV contrast dose: 17 mL Dotarem from a 20 mL vial with 3 mL discarded. COMPARISON: 02/04/2025. FINDINGS: Bilateral renal cortical cysts. The spleen is only partially included in the ridrr-ta-zrpa but appears enlarged. There is moderate edema and the lumbar subcutaneous fat. No other paraspinous soft tissue findings. Diffuse low T1 marrow signal. No compression deformity. Normal alignment. No focal marrow infiltrative lesion. No abnormal marrow enhancement. Normal position of the conus at T12. No abnormal enhancement of the conus or nerve roots of the cauda equina. Lumbar disc levels: L1-2: Mild endplate irregularity. Small anterior endplate osteophytes. Mild bilateral ligament flavum hypertrophy. No spinal or foraminal stenosis. L2-3: Minimal endplate irregularity. Minimal degenerative irregularity of the SI [...] facet joints without spinal or foraminal stenosis. Procedure Note Nikos Alvarenga MD - 06/16/2025 PROCEDURE: MRI of the lumbar spine with intravenous contrast. HISTORY: Paraspinal mass/tumor. TECHNIQUE: Sagittal and axial multisequence MRI of the lumbar spine withand without intravenous contrast administration. IV contrast dose: 17 mL Dotarem from a 20 mL vial with 3 mL discarded. COMPARISON: 02/04/2025. FINDINGS: Bilateral renal cortical cysts. The spleen is only partially included inthe txuhu-yb-hpya but appears enlarged. There is moderate edema and thelumbar subcutaneous fat. No other paraspinous soft tissue findings. Diffuse low T1 marrow signal. No compression deformity. Normalalignment. No focal marrow infiltrative lesion. No abnormal marrowenhancement. Normal position of the conus at T12. No abnormal enhancement of the conusor nerve roots of the cauda equina. Lumbar disc levels: L1-2: Mild endplate irregularity. Small anterior endplate osteophytes.Mild bilateral ligament flavum hypertrophy. No spinal or foraminalstenosis. L2-3: Minimal endplate irregularity. Minimal degenerative irregularity ofthe SI joints. Mild bilateral ligamentum flavum hypertrophy. Widening ofleft facet joint suggesting mild hypermobility. No spinal or foraminalstenosis. L3-4: Minimal degenerative irregularity of the facet joints. Mildright-sided ligamentum flavum hypertrophy. No spinal or foraminalstenosis. L4-5: Loss of the normal T2 hyperintensity of the intervertebral disc.Moderate left central focal protrusion, which is slightly larger than onthe comparison study. This results in significant narrowing of the leftlateral recess, where there is impingement of the L5 nerve root, andcauses mild posterior displacement of the left S1 nerve root. There ismild bilateral facet arthropathy. No foraminal stenosis. L5-S1: Minimal degenerative irregularity of the facet joints withoutspinal or foraminal stenosis. IMPRESSION: 1. Diffuse low T1 marrow signal. This can be secondary to a diffusemarrow infiltrative process or can be secondary to red marrow activation.This appearance is suspected to be related the patient's history ofpolycythemia vera. 2. A left central protrusion at L4-5 results in significant impingementof the left L5 nerve root in the lateral recess. The protrusion isslightly larger than on the 02/04/2025 comparison study. 3. No paraspinal mass. -------- FINAL REPORT -------- Dictated By: Nikos Alvarenga Dictated Date: 06/16/2025 15:55 ET Assigned Physician: Nikos Alvarenga Reviewed and Electronically Signed By: Nikos Alvarenga Signed Date: 06/16/2025 16:09 ET Workstation ID: [id number] Transcribed By: Self Edit Transcribed Date: 06/16/2025 15:55 ET Juan Manuel Green MD [facility] MRI PROCEDURES Final Resul t * MR Thoracic Spine wo and w Contrast (06/15/2025 2:00 PM EDT) Anatomical Region Laterality Modality T-spine, Spine Magnetic Resonan ce 06/16/2025 3:23 PM EDT Impressions 06/16/2025 3:54 PM EDT 1. No paraspinal mass. 2. Diffusely low T1 marrow signal. This can be secondary to a diffuse marrow infiltrative process or can be secondary to red marrow activation. This appearance is suspected to be related the patient's history of polycythemia vera. 3. The spleen is only partially included in the uioam-vi-uwtb but appears enlarged. -------- FINAL REPORT -------- Dictated By: Nikos Alvarenga Dictated Date: 06/16/2025 15:23 ET Assigned Physician: Nikos Alvarenga Reviewed and Electronically Signed By: Nikos Alvarenga Signed Date: 06/16/2025 15:54 ET Workstation ID: [id number] Transcribed By: Self Edit Transcribed Date: 06/16/2025 15:29 ET Narrative 06/16/2025 3:54 PM EDT PROCEDURE: MRI of the thoracic spine with intravenous contrast. HISTORY: Paraspinal mass/tumor. COMPARISON: Chest CT 05/20/2024. TECHNIQUE: Sagittal and axial multisequence MRI of the thoracic spine with and without intravenous contrast. IV contrast dose: 17 mL Dotarem from a 20 mL vial with 3 mL discarded. FINDINGS: The spleen is only partially included in the [id number]-yz-[id number] but appears to be enlarged. There are no other paraspinous soft tissue findings. Alignment is normal. No compression deformity. Diffuse low T1 signal throughout the marrow spaces. No abnormal marrow enhancement. Very mild degenerative changes of the vertebral endplates and facet joints. No spinal or foraminal stenosis. The cord is normal in caliber and signal. No abnormal cord enhancement. Procedure Note Nikos Alvarenga MD - 06/16/2025 PROCEDURE: MRI of the thoracic spine with intravenous contrast. HISTORY: Paraspinal mass/tumor. COMPARISON: Chest CT 05/20/2024. TECHNIQUE: Sagittal and axial multisequence MRI of the thoracic spine withand without intravenous contrast. IV contrast dose: 17 mL Dotarem from a 20 mL vial with 3 mL discarded. FINDINGS: The spleen is only partially included in the sdvmz-ms-jkit but appears edward enlarged. There are no other paraspinous soft tissue findings. Alignment is normal. No compression deformity. Diffuse low T1 signalthroughout the marrow spaces. No abnormal marrow enhancement. Very milddegenerative changes of the vertebral endplates and facet joints. Nospinal or foraminal stenosis. The cord is normal in caliber and signal. No abnormal cord enhancement. IMPRESSION: 1. No paraspinal mass. 2. Diffusely low T1 marrow signal. This can be secondary to a diffusemarrow infiltrative process or can be secondary to red marrow activation.This appearance is suspected to be related the patient's history ofpolycythemia vera. 3. The spleen is only partially included in the arxyo-pd-[id number] but appearsenlarged. -------- FINAL REPORT -------- Dictated By: Nikos Alvarenga Dictated Date: 06/16/2025 15:23 ET Assigned Physician: Nikos Alvarenga Reviewed and Electronically Signed By: Nikos Alvarenga Signed Date: 06/16/2025 15:54 ET Workstation ID: [id number] Transcribed By: Self Edit Transcribed Date: 06/16/2025 15:29 ET us Juan Manuel Green MD [facility] MRI PROCEDURES Final Resul t * MR Cervical Spine wo and w Contrast (06/15/2025 1:59 PM EDT) Anatomical Region Laterality Modality C-spine, Spine Magnetic Resonan ce 06/16/2025 3:00 PM EDT Impressions 06/16/2025 3:22 PM EDT 1. Diffuse low T1 marrow signal. This can be secondary to a diffuse marrow infiltrative process or can be secondary to red marrow activation. This appearance is suspected to be related the patient's history of polycythemia vera. 2. Degenerative changes of the cervical spine as detailed above. -------- FINAL REPORT -------- Dictated By: Nikos Alvarenga Dictated Date: 06/16/2025 15:00 ET Assigned Physician: Nikos Alvarenga Reviewed and Electronically Signed By: Nikos Alvarenga Signed Date: 06/16/2025 15:22 ET Workstation ID: [id number] Transcribed By: Self Edit Transcribed Date: 06/16/2025 15:00 ET Narrative 06/16/2025 3:22 PM EDT PROCEDURE: MRI of the cervical spine with intravenous contrast. HISTORY: Paraspinal mass/tumor. COMPARISON: None. TECHNIQUE: Sagittal and axial multisequence MRI of the cervical spine with and without intravenous contrast. IV contrast dose: 17 mL Dotarem from a 20 mL vial with 3 mL discarded. FINDINGS: The visualized portions of the brain and skull base are normal. Straightening of the typical cervical lordosis. No listhesis. There is no focal bony lesion. Diffuse T1 hypointensity of the visualized marrow spaces. Normal appearance of the soft tissues of the neck. There is no cord signal abnormality and no abnormal cord enhancement. Cervical disc levels: C2-3: Mild left facet arthropathy. Mild left foraminal stenosis. No spinal stenosis. C3-4: Mild bilateral facet arthropathy. Moderate posterior ligamentous hypertrophy eccentric to the left resulting in mild spinal stenosis. Moderate left foraminal stenosis. C4-5: Mild disc space height loss and endplate irregularity. Small right [...] spinal or foraminal stenosis. C7-T1: Mild right facet arthropathy without spinal or foraminal stenosis. Procedure Note Nikos Alvarenga MD - 06/16/2025 PROCEDURE: MRI of the cervical spine with intravenous contrast. HISTORY: Paraspinal mass/tumor. COMPARISON: None. TECHNIQUE: Sagittal and axial multisequence MRI of the cervical spine withand without intravenous contrast. IV contrast dose: 17 mL Dotarem from a 20 mL vial with 3 mL discarded. FINDINGS: The visualized portions of the brain and skull base are normal. Straightening of the typical cervical lordosis. No listhesis. There isno focal bony lesion. Diffuse T1 hypointensity of the visualized marrowspaces. Normal appearance of the soft tissues of the neck. There is no cord signal abnormality and no abnormal cord enhancement. Cervical disc levels: C2-3: Mild left facet arthropathy. Mild left foraminal stenosis. Nospinal stenosis. C3-4: Mild bilateral facet arthropathy. Moderate posterior ligamentoushypertrophy eccentric to the left resulting in mild spinal stenosis.Moderate left foraminal stenosis. C4-5: Mild disc space height loss and endplate irregularity. Small rightuncovertebral spurs. Mild posterior ligamentous hypertrophy, eccentric tothe left, causing mild spinal stenosis. Moderate right foraminalstenosis. C5-6: Moderate disc space height loss and endplate irregularity. Smallbilateral uncovertebral spurs and a small disc osteophyte complex which ismost prominent in the left central region, causing mild-moderate spinalstenosis eccentric to the left. Moderate left foraminal stenosis. C6-7: Mild endplate irregularity. Minimal endplate osteophytes. Nosignificant spinal or foraminal stenosis. C7-T1: Mild right facet arthropathy without spinal or foraminalstenosis. IMPRESSION: 1. Diffuse low T1 marrow signal. This can be secondary to a diffusemarrow infiltrative process or can be secondary to red marrow activation.This appearance is suspected to be related the patient's history ofpolycythemia vera. 2. Degenerative changes of the cervical spine as detailed above. -------- FINAL REPORT -------- Dictated By: Nikos Alvarenga Dictated Date: 06/16/2025 15:00 ET Assigned Physician: Nikos Alvarenga Reviewed and Electronically Signed By: Nikos Alvarenga Signed Date: 06/16/2025 15:22 ET Workstation ID: [id number] Transcribed By: Self Edit Transcribed Date: 06/16/2025 15:00 ET Juan Manuel Green MD [facility] MRI PROCEDURES Final Resul t * (ABNORMAL) Hemoglobin A1c (01/20/2025 9:23 AM EDT) Hemoglobin A1C 6.8(H) <6.5 % LAB CHEMISTRY METHOD 01/20/2025 1:32 PM EDT [facility] Mean Bld Glu Estim. 148 mg/dL LAB CHEMISTRY METHOD 01/20/2025 1:32 PM EDT [facility] Blood Venous blood specimen / Unknown Venipuncture / Unknown 01/20/2025 9:23 AM EDT 01/20/2025 11:40 AM EDT Alla Escobar MD LAB BLOOD ORDERABLES Final Res ult [facility] ([facility]) [facility] [address] [place] [address], * HM Urine Albumin Creatinine Ratio (12/31/2023) HM Urine Albumin Creatinine Ratio abstracted Historical Provider HEALTH MAINTENANCE Final Result * Lipid panel (12/31/2023) Triglycerides 0 mg/dL Comment:abstracted, no inter pretation Cholesterol 0 mg/dL Comment:abstracted, no inter pretation HDL 0 mg/dL Comment:abstracted, no inter pretation LDL Cholesterol 0 mg/dL Comment:abstracted, no inter pretation Blood Venous blood specimen / Unknown Historical Provider LAB BLOOD ORDERABLES Mercedez l Result from Last 3 Months or Most Recently Relevant to Health Maintenance Additional Health Concerns Infection Onset Date Last 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 Do not modify or discontinue any currently active code status orders. * Full Code - Default Date Activated Date Inactivated Comments 06/29/2025 2:54 AM 06/30/2025 8:39 PM This is orde r is used when code status has not been discussed with the patient, or code status is otherwise unknown/unconfirmed To update the patient's code status, place a code status order. Do not modify or discontinue any currently active code status orders. * Full Code - Default Date Activated Date Inactivated Comments 02/04/2025 11:48 AM 02/06/2025 8:26 PM This is ord er is used when code status has not been discussed with the patient, or code status is otherwise unknown/unconfirmed To update the patient's code status, place a code status order. Do not modify or discontinue any currently active code status orders. Healthcare Agents on File Name Relationship Healthcare Agent [facility] Communication Curtis Johnson Spouse Health Care Agent Care Teams [employer]imber Relationship Specialty Start Date End Date Mariely Vargas MD [address] [place] [id number] PCP - General 05/29/22
--- OUTSIDE RECORDS SUMMARY | 2025-08-24 09:27 | XMS_ITS | Data Portability ---
Author Organization [place] - [facility], Allergy Address [address] [address] Care Team Providers Care Systems Design Engineer Name Role Phone TROY LOBO Primary Care Provider [phone] TROY LOBO Referring Provider Assessment Encounter Date Assessment Date Assessment LastModified by Organization Details LastModified Time 06/15/2024 06/15/2024 He appears to have tinnitus [...] wick placement to keep the canal open. [email or web address] Not available 06/15/2024 15:17:44 09/15/2024 09/15/2024 Recommendations: [...] irritation in this area. Recommended use of [id number] antibiotic ointment over the small area of residual granulation along the postauricular crease. Because of the change in configuration of the external auditory meatus, it is likely he will be prone to cerumen impaction. Recommend follow-up with me in 3 months for reevaluation. Not available 09/15/2024 09:27:27 02/23/2025 02/23/2025 The left pinna, external auditory canal were carefully examined today. There is a rotational flap graft filling the cavum jossie resulting in convexity of this area, which is stable and does not appear to be in danger of causing external auditory canal stenosis. This does however lead to disruption of the natural migration of cerumen and squamous epithelium out of the ear canal, so he will be prone to cerumen and debris impactions going forward. Fortunately this should be able to be done every 6 months or so based on the degree of accumulation noted on physical exam today. We will set this up for him. [email or web address] Not available 02/23/2025 10:23:10 Plan of Treatment Reminders Order Date Submit Date Provider Last Modified By Organization Details Last Modified Time Details Appointments Establish ed 10 2024 09:00A M ROGERS OLIVEIRA MD Not available Not available Not available Lab None recorded. Referral None recorded. Procedures None recorded. Surgeries None recorded. Imaging None recorded. Medication Orders ofloxacin 0.3 % ear drops 2023 024 [facility]/Pharmacy #[id number], [address] [place], [address], 09/15/2024 08:13:54 Patient TargetsNo targets recorded. Patient InstructionsNo instructions recorded. Reason for Referral None Reported. Results Created Date Observation Date Name Description Value Unit Range Abnormal Flag Note LastModifiedBy Organization Detail LastModifiedTime 05/17/2005/17/2024 CT, neck, soft tissu e, w/wo contr ast No observ ation record ed. 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 There is asymme tric soft tissue thicke sujit along the domestic technician ior inferi or pinna, extend ing into [...] 1. Soft tissue thicke sujit of the domestic technician ior inferi or left pinna extend ing [...] Date/T [place]: 1427 Sign date/T [place]: [address] [facility] [address] Department [address] [place] [address], [address], 05/17/2024 16:18:40 06/29/2009/22/2019 imagi ng/di agnos tic [...] Details Recorded Time Hypertrop hy of tonsils 66188805 Active 2017 Hypertrop hy of tonsils; Note: Date Diagnosed : 06/01/2018 12:08 PM (J35.1) Not Available [facility] 4 02:15:50 Sensorine ural hearing loss of bilateral ears 919094247 Active 2017 Sensorine ural hearing loss, bilateral ; Note: Date Diagnosed : 06/11/2018 10:24 AM (H90.3) Not Available [facility] 4 02:15:48 Tinnitus of left ear 53016221148 06 Active 2017 Tinnitus, left ear; Note: Date Diagnosed : 06/11/2018 12:44 PM (H93.12) Not Available [facility] 4 02:15:32 Obstructi ve sleep apnea syndrome 00204685 Active 2019 Obstructi ve sleep apnea (adult) (pediatri c); Note: Date Diagnosed : 04/04/2020 9:58 AM (G47.33) Not Available [facility] 4 02:15:29 Bleeding from nose 460042680 Active 2019 Epistaxis ; Note: Date Diagnosed : 04/04/2020 9:58 AM (R04.0) Not Available 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 RAMBO DE LA ROSA MD [address], [place], [address] , [place] - [facility] 4 22:17:11 Actinic keratosis 791241820 Active 2023 RAMBO DE LA ROSA MD [address], [place], [place], [address] , [place] - [facility] 4 22:17:19 Hypothyro idism 37073830 Active 2023 RAMBO DE LA ROSA MD [address] [facility], [place], [place], [address] , [place] - [facility] 4 22:17:30 Lesion of skin of left ear 90483817304 936706 Active 2023 RAMBO DE LA ROSA MD [address] [facility] [place], [place], [place], [address] , [place] - [facility] 4 10:46:45 Squamous cell carcinoma of skin of ear 893902508 Active 2023 RAMBO DE LA ROSA MD [address] [facility], [place], [place], [address] , [place] - [facility] 4 20:24:50 Acute otitis externa 99856326 Active 2023 RAMBO DE LA ROSA MD [address] [facility] [place], [place], [address] , [place] [facility] 4 15:18:21 Acute otitis externa 15260785 Active 2023 RAMBO DE LA ROSA MD [address] [facility], [place], [address] , [place] [facility] 4 15:19:13 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 770275750 Active 2023 RAMBO DE LA ROSA MD [address] [facility],[place] [address], [place], [address] , [place] - [facility] 4 15:20:44 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 11035414 Active 2023 RAMBO DE LA ROSA MD [address] [facility],[place] [address], [place], [address] , [facility] - [facility] 4 22:23:07 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 Procedures Surgical History Date Name Laterality Status Provider Name and Address Organization Details Recorded Time 02/24/20 25 Debridement of Ear canal left completed ROGERS OLIVEIRA MD [address] [facility],[address], [address], [facility] - [facility] 02/23/2025 10:19:32 09/15/20 24 Comp Audio with Tymps - 37967 & 47044 completed LUIGI SPENCER [address] [facility],[place] [address], [place], [address], [facility] - [facility] 09/15/2024 08:41:47 09/15/20 24 Cerumen removal with microscope left completed ROGERS OLIVEIRA MD [address] [facility],[address], [address], [place] - [facility] 09/15/2024 08:29:59 04/08/20 24 General Biopsy completed RAMBO WOOTEN MD [address] [place] [address], [address], [facility] - [facility] 04/08/2024 10:46:30 Prostatectomy (turp) completed Angelita Lopez [facility] 04/08/2024 10:16:10 Imaging Results None recorded. Procedure Notes None recorded. Medical Equipment None Reported. Allergies Allergen ID Allergen Name Allergen Category Reaction Reaction Severity Criticality Documentation Date Start Date Code Code System Note Provider Name and Address Organization Details Recorded Time 325602 doxycycli ne Not available Not available Not available Not available 06/15/2024 3640 RxNorm Milly hahn [place] - [facility] 4 15:07:05 41190 penicilli n G Not available other Not available Not available 03/22/2024 7980 RxNorm React ion: unkno wn, unspe cifie d;; Not Available [facility] 4 00:52:56 43176 Cipro medicatio n diarrhea Not available Not available 03/22/2024 19910 3 RxNorm React ion: unkno wn, unspe cifie d;; Not Available [facility] 4 00:53:05 Medications Name Sig Start Date Stop Date Status Note LastModified by Organization Details LastModified Time hydroxyur ea 500 mg capsule TAKE 2 CAPSULES (1,000 MG TOTAL) BY MOUTH 1 (ONE) TIME EACH DAY TAKE AT THE SAME TIME EACH DAY. active Not Available Not Available No t Available ketoconaz ole 2 % shampoo APPLY TOPICALL Y DAILY. APPLY TO DAMP SKIN (OF EARS, SCALP), LATHER, LEAVE ON 3-5 MINUTES, AND RINSE active Not Available Not Available No t Available tizanidin e 2 mg tablet TAKE 1 TABLET (2 MG TOTAL) BY MOUTH EVERY 6 HOURS NEEDED FOR MUSCLE SPASM FOR UP TO 10 DAYS active Not Available Not Available No t Available fosfomyci n trometham ine 3 gram oral packet TAKE 1 PACKET, MIX W 6 TO 8OZ OF JUICE OR WATER AND DRINK, REPEAT THE DOSE IN 3 DAYS. 02/23 completed Not Available Not Available Not Available cilostazo l 50 mg tablet TAKE 1 TABLET BY MOUTH TWICE A DAY active Not Available Not Available No t Available sulfameth oxazole 400 mg-trimet hoprim 80 mg tablet TAKE 1 TABLET BY MOUTH EVERY DAY 02/23 completed Not Available Not Available Not Available cephalexi n 250 mg capsule TAKE 1 CAPSULE BY MOUTH EVERY DAY 02/23 completed Not Available Not Available Not Available loperamid e 2 mg tablet 09/15 completed Medicati on ID: [id number] B rand Name: loperami de Send Method: [...] APPLY AT BEDTIME TO FACE FOR ROSACEA. 02/23 completed Not Available Not Available Not Available ciproflox acin 250 mg tablet TAKE [...] mg tablet 06/15 completed Medicati on ID: [id number] D uration Value: 90 Brand Name: allopuri [...] layed release 06/15 completed Medicati on ID: [id number] B rand Name: aspirin Send Method: E-Prescr [...] STOP IF ON ANY OTHER ANTIBIOT ICS 02/23 completed Not Available Not Available Not Available lorazepam 0.5 mg tablet TAKE 1 TABLET BY MOUTH EVERY 6 HOURS NEEDED. 09/15 completed Not Available Not Available Not Available triamcino lone acetonide 0.025 % topical cream APPLY TO AFFECTED AREA TWICE A DAY 06/15 completed Not Available Not Available Not Available econazole nitrate 1 % topical cream APPLY TOPICALL Y DAILY. TO BUTTOCK AND FEET FOR 3-4 WEEKS active Not Available Not Available No t Available cephalexi n 500 mg capsule TAKE 1 CAPSULE BY MOUTH TWICE A DAY 02/23 completed Not Available Not Available Not Available nystatin 100,000 unit/gram topical cream APPLY TO AFFECTED AREA TWICE A DAY 06/15 completed Not Available Not Available Not Available metronida zole 0.75 % topical cream 06/15 completed Medicati on ID: [id number] D uration Value: 30 Brand Name: metronid azole Se nd Method: E-Prescr ibed Sub s Allowed: subs OK Medic ationGen ericName : metronid azole Not Available Not Available Not Available minocycli ne 50 mg capsule PLEASE SEE ATTACHED FOR DETAILED DIRECTIO NS active Not Available Not Available No t Available gabapenti n 300 mg capsule TAKE 2 CAPSULES BY MOUTH 3 TIMES A DAY active Not Available Not Available No t Available folic acid 1 mg tablet TAKE 1 TABLET BY MOUTH EVERY DAY active Not Available Not Available No t Available codeine 10 mg-guaife nesin 100 mg/5 mL oral liquid TAKE 10ML BY MOUTH EVERY 6 HOURS NEEDED FOR COUGH FOR 10 DAYS 02/23 completed Not Available Not Available Not Available mupirocin 2 % topical ointment APPLY TOPICALL Y DAILY. MIXED WITH HYDROCOR TISONE TO THE EARS active Not Available Not Available No t Available ibuprofen 600 mg tablet TAKE 1 [...] completed Not Available Not Available Not Available albuterol sulfate HFA 90 mcg/actua tion aerosol inhaler INHALE 2 PUFFS BY MOUTH EVERY 6 HOURS NEEDED FOR SHORTNES S OF BREATH OR WHEEZING active Not Available Not Available No t Available ipratropi um bromide 42 mcg (0.06 %) nasal spray 04/08 completed Medicati on ID: [id number] D uration Value: 30 Brand Name: ipratrop ium bromide Send Method: E-Prescr ibed Sub s Allowed: subs OK Speci al Instruct ion: USE 2 SPRAYS INTO EACH NOSTRILS 4 TIMES DAILY Me dication GenericN dakotah: ipratrop ium bromide Medicati on ID: [id number] D uration Value: 30 Brand Name: ipratrop ium bromide Send Method: E-Prescr ibed Sub s Allowed: subs OK Speci al Instruct ion: USE 2 SPRAYS INTO EACH NOSTRILS 4 TIMES DAILY Me dication GenericN dakotah: ipratrop ium bromide Not Available Not Available Not Available hydrocort isone 2.5 % topical ointment MIX WITH MUPRIOCI N AND APPLY TOPICALL Y 2 TIMES A DAY FOR UP TO 7 DAYS IN A ROW TO BOTH EARS active Not Available Not Available No t Available ketoconaz ole 2 % topical cream APPLY SPARINGL Y ONCE PER DAY TO FACE AND TWICE A DAY TO FEET. active Not Available Not Available No t Available cefdinir 300 mg capsule TAKE 1 CAPSULE BY MOUTH TWICE A DAY 04/08 completed Not Available Not Available Not Available fluticaso ne propionat e 50 mcg/actua tion nasal spray,michelle pension TAKE 2 SPRAYS INTRANAS ALLY DAILY active Not Available Not Available No t [...] BY MOUTH EVERY 6 HOURS NEEDED FOR SEVERE PAIN FOR UP TO 3 DAYS 02/23 completed Not Available Not Available Not Available hydroxyzi ne pamoate 25 mg capsule TAKE 1 CAPSULE (25 MG TOTAL) BY MOUTH 3 (THREE) TIMES A DAY NEEDED. active Not Available Not Available No t Available clindamyc in 1 % lotion 06/15 completed Medicati on ID: [id number] D uration Value: 30 Brand Name: clindamamairani yolanda phosphat e Send Method: E-Prescr ibed Sub s Allowed: subs OK Speci al Instruct ion: APPLY 1-2 DAILY FOR ROSACEA Medicati onGeneri cName: clindamy yolanda phosphat e Not Available Not Available Not Available Vitamin C 500 mg capsule,e xtended release 02/23 completed Medicati on ID: [id number] B rand Name: Vitamin C Send Method: E-Prescr ibed Sub s Allowed: subs OK Medic ationGen ericName : Vitamin C Not Available Not Available Not Available ciclopiro x 0.77 % topical cream APPLY TWICE A DAY TO FUNGAL RASH ON RIGHT BUTTOCK UNTIL CLEAR. 04/08 completed Not Available Not Available Not Available cyclobenz aprine 5 mg tablet TAKE 1 TABLET (5 MG TOTAL) BY MOUTH NIGHTLY AT BEDTIME NEEDED (BACK PAIN). active Not Available Not Available No t Available tadalafil 5 mg tablet TAKE 1 TABLET BY MOUTH EVERY DAY active Not Available Not Available No t Available nitrofura ntoin monohydra te/macroc rystals 100 mg capsule TAKE 1 CAPSULE BY MOUTH TWICE A DAY 02/23 completed Not Available Not Available Not Available oxycodone 10 mg tablet TAKE 1 TABLET BY MOUTH EVERY 6 HOURS NEEDED FOR SEVERE PAIN active Not Available Not Available No t Available azelastin e 205.5 mcg (0.15 %) nasal spray 06/15 completed Medicati on ID: [id number] B rand Name: azelasti ne Send Method: E-Prescr ibed Sub s Allowed: subs OK Medic ationGen ericName : azelasti ne Not Available Not Available Not Available OxyContin 10 mg tablet,cr ush resistant ,extended release TAKE 1 TABLET BY MOUTH TWICE A DAY FOR 15 DAYS active Not Available Not Available No t Available Lagevrio 200 mg capsule (EUA) TAKE 4 CAPSULES BY MOUTH TWICE A DAY FOR 5 DAYS 04/08 completed Not Available Not Available Not Available Vitals Date Recorded Body height Body mass index (BMI) Body weight Provider Name and Address Organization Details Last Updated DateTime 02/23/2025 175.26 cm 28.1 kg/m2 89455.55 g Angelita Lopez [facility] 02/23/2025 09:46:34 Date Recorded Body height Body mass index (BMI) Body weight Provider Name and Address Organization Details Last Updated DateTime 06/15/2024 175.26 cm 28.1 kg/m2 69179.55 g Milly Vasquez [facility] 06/15/2024 15:00:45 Date Recorded Body height Body mass index (BMI) Body weight Provider Name and Address Organization Details Last Updated DateTime 07/08/2024 175.26 cm 28.1 kg/m2 35925.55 g Johny Horton [facility] 07/08/2024 11:35:04 Social History None recorded. Functional Status None recorded. Mental Status None recorded. Family History Nothing Reported. Medical History Condition Response Allergies/Hayfever Y Heart Problems N Anxiety N Tonsil Infections N Emphysema N Migraines N Thyroid Problems Y Glaucoma N Developmental Delay N Depression N COPD N Nasal or Sinus Problems N Anemia Y Immune System Disorder N Anesthesia Complications N Heart Attack (NM) N Other Skin Condition N Diabetes Y Rhinitis Y Bleeding Disorder Y Food Allergy N Hearing Loss N Arthritis N Hyperlipidemia N Cancer Y Stroke N Dementia N Nasal polyps N Asthma N Sleep Disorder Y High Cholesterol N GERD/Reflux Y Liver Disease N Headaches N Fibromyalgia N Hypertension Y Speech Delay N Kidney Disease Y Past Encounters Encounter ID Performer Location Encounter Start Date Encounter Closed Date Diagnosis/Indication Diagnosis SNOMED-CT Code Diagnosis ICD10 Code Diagnosis IMO Codes Diagnosis Note [id number] RAMBO DE LA ROSA MD [facility] [address] [address] 04/08/2024 09:34:07 04/08/2024 11:03:58 Actinic keratosis 670397169 L57.0 Obstructiv e sleep apnea syndrome 68046372 G47.33 Hypothyroidism 75849264 E03.9 Lesion of skin of left ear 0083158441 7770028 H93.8X2 [id number] RAMBO DE LA ROSA MD [facility] [address] [address] 06/15/2024 14:50:50 06/15/2024 15:28:16 Acute otitis externa 49411714 H60.502 Squamous c ell carcinoma of auricle of ear 286988119 C44.229 [id number] RAMBO DE LA ROSA MD [facility] [address] [address] 07/08/2024 11:27:53 07/08/2024 12:03:02 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 Still swelling of skin graft. No need for any packing Suggest 3 drops distilled vinegar left ear once weekly. F/u in 3 months with PA for cleaning History of malignant neoplasm of skin 338718501 Z85.828 Diffuse actinic keratosis and multiple scars. 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 He has high-frequ ency sensorineu ral hearing loss consistent with presbycusi s. He is a borderline candidate for amplificat ion at this point. He is not interested in learning about amplificat ion technology at this point. Impacted jamie silva in left ear 4693684569 266974 H61.22 [id number] LUIGI SPENCER [facility] [address] [address] 09/15/2024 08:30:27 09/16/2024 07:25:20 Sensorineural hearing loss of bilateral ears 831028826 H90.3 Audiologic al evaluation results:Ri ght ear:Normal sloping to moderate sensorineu ral hearing loss with excellent word recognitio n.Left ear:Normal sloping to moderately -severe sensorineu ral hearing loss with excellent word recognitio n.Tympanom etry:Right Ear:Type BLeft Ear:Type A [id number] ROGERS OLIVEIRA MD [facility] [address] [address] 02/23/2025 09:34:51 02/23/2025 10:22:25 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 51745491 H95.812 Squamous c ell carcinoma of skin of ear 146043733 C44.229 Impacted c erumen in left ear 5691516165 545748 H61.22 Health Concerns Section Related Observation LastModified by Organization Detai ls LastModified Time None Recorded Concern Status LastModified by Organization Details LastModified Time None Recorded Advance Directives Directive None Recorded Payers Insurance Date Sequence Insurance Name Policy Number Policy Ryan Covered Member ID Ryan Member ID Guarantor Name 02/23/2025 2 [place] [id number] Clay Barron [id number] Clay Barron 02/20/2025 1 [place] [employer] Clay Barron [id number] Clay Barron Notes Date Note Type Note Provider Name and Address Organization Details Recorded Time 06/15/2024 text/html He had Moh's resection and plastic reconstruction with graft left pinna. Notes tinnitus and pulsating sensation left ear. CT had small nodes but did not appear pathological RAMBO WOOTEN MD [address] [place] [address], [address], [facility] - [facility] 06/15/2024 15:22:26 07/08/2024 text/html s/p Moh's and plastic reconstruction. Left EAC was narrow but not closed. Ofloxacin drops given last visit. Feels better waiting for possible radiation RAMBO WOOETN MD [address] [facility],[address], [address], [facility] 07/08/2024 12:20:25 09/15/2024 text/html Patient underwent Mohs resection of squamous cell carcinoma of [...] the left ear. ROGERS OLIVEIRA MD [address] [facility],[address], [address], [facility] 09/15/2024 09:28:53 09/15/2024 text/html Audiological Evaluation HPIReported by PatientHearing LossFor hearing loss perceived, patient reportshearing loss in both ears (left ear worse)but reportsrecent onset (not sudden).Use of amplification or other hearing devicesFor use of amplification or other hearing devices, patient reportsnone (does not use amplification). LUIGI SPENCER [address] [facility],[place] [address], [place], [address], [facility] - [facility] 09/15/2024 09:22:54 02/23/2025 text/html Patient underwent Mohs resection of squamous cell carcinoma of the left external ear conchal bowl back on May 18, 2024. This resulted in a through and through defect of the cavum jossie. He had a rotational flap done with Dr. Jovel on May 19 to reconstruct the defect. I last saw him back in November, the site was healing well, without evidence of significant canal stenosis. According to his dermatology note, the patient has been going to [facility] for further care. 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 PET and CT scans negative for distant metastasis. He is undergoing immunotherapy and patient reports that he will be having surgery in [place] in the next couple of months. ROGERS OLIVEIRA MD [address] [place] [address], [address], [facility] - [facility] 02/23/2025 10:23:42
--- OUTSIDE RECORDS SUMMARY | 2025-08-24 09:27 | XMS_ITS | Clinical Summary ---
Author Organization [facility] Address [address] [place] [address] Care Team Providers Care Seaman Name Role Phone Mariely Vargas MD Primary Care Provider [phone] Allergies Active Allergy Reactions Criticality Noted Date [...] age to complete this topic Care Teams Seaman Relationship Specialty Start Date End Date Mariely Vargas MD [address] [place], [place] PCP - General Internal Medicine 05/29/22
--- OUTSIDE RECORDS SUMMARY | 2025-08-24 09:27 | XMS_ITS | Clinical Summary ---
Author Organization [facility] Address [address] [facility] [place] [address] [place] [address] Phone Care Team Providers Care Leg Breaker Name Role Phone Mariely Vargas MD Primary Care Provider Lindsay Perales MD Unavailable Richard Eden DO, Justine Unavailable [phone] Maribel Nur MD, MPH Unavailable Kezia Webb MD Unavailable [phone] Lor Bal MD Unavailable [phone] Mynor Coats MD Unavailable Eliseo Rand RN Unavailable [email or web address] Grover Barbosa MD Unavailable Neville Torres MD Unavailable Kya Diaz RN Unavailable [email or web address] Yvonne Lewis Unavailable [phone] Brennon Delcid MD, MPH Unavailable + Cathy Schmidt PA-C Unavailable + Allergies Active Allergy Reactions Criticality Noted Date Comments Ciprofloxacin Unknown 05/22/2017 Doxycycline Unknown 05/22/2020 Penicillins Unknown 07/18/2010 Medications aspirin 81 MG EC tablet Take 1 tablet by mouth daily. Active folic acid (FOLVITE) 1 MG tablet Take 1,000 mcg by mouth daily. 01/13/20 23 Active ipratropium (ATROVENT) 21 mcg (0.03 %) nasal spray 1 spray by Nasal route as needed. 01/28/20 23 Active ketoconazole 2 % cream Apply 1 Application topically daily. 01/23/20 23 Active omeprazole (PRILOSEC) 20 MG capsule Take 20 mg by mouth daily. Active sulfacetamide sodium 10 % Susp APPLY AT BEDTIME TO FACE FOR ROSACEA 11/06/20 22 Active fluticasone propionate (FLONASE) 50 mcg/actuation nasal spray 1 spray by Nasal route daily. Active cephalexin (KEFLEX) 250 MG capsule Take 250 mg by mouth 2 (two) times a day. Active acetaminophen (TYLENOL EXTRA STRENGTH ORAL) Take 1 tablet by mouth every 8 (eight) hours as needed (PAIN). 05/16/20 24 Active tadalafiL (CIALIS) 5 MG tablet Take 5 mg by mouth daily as needed (ED). 10/24/20 24 Active ketoconazole (NIZORAL) 2 % shampoo Apply topically daily. Apply to damp skin (of ears, scalp), lather, leave on 3-5 minutes, and rinse 120 mL 11 01/20/20 25 Active mupirocin (BACTROBAN) 2 % ointment Apply topically daily. Mixed with hydrocortisone to the ears 22 g 01/20/20 25 Active Additional Information Patient not taking.Reported on 04/12/2025 levothyroxine (SYNTHROID,LEVO THROID) 25 MCG tabletIndicatio ns:Acquired hypothyroidism, Thyroid nodule Take 1 tablet (25 mcg total) by mouth every morning. 90 tablet 3 03/09/20 25 Active OXYCONTIN 10 mg 12 hr tablet Take 10 mg by mouth every 12 (twelve) hours. 03/07/20 25 Active fluticasone propionate (FLONASE) 50 mcg/actuation nasal spray 2 sprays by Nasal route daily. Active lactobacillus rhamnosus, GG, (CULTURELLE) 10 billion cell capsule Take 1 capsule by mouth daily. Active mupirocin (BACTROBAN) 2 % ointment Apply topically 2 (two) times a day. Before radiation 22 g 05/04/20 25 Active Additional Information Patient not taking.Reported on 07/14/2025 triamcinolone acetonide 0.1 % cream Apply topically daily. 80 g 3 05/04/20 25 Active econazole nitrate 1 % cream Apply topically daily. 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 Partial fill permissible at request of patient. 30 tablet 05/16/20 25 Active gabapentin (NEURONTIN) 300 MG capsule 05/30/20 25 Active nystatin cream Apply topically 2 (two) times a day. APPLY TO AFFECTED AREA 07/11/20 25 Active guaiFENesin (ROBITUSSIN) 100 mg/5 mL syrupIndication s:Squamous cell carcinoma of skin Take 10 mL (200 mg total) by mouth 4 (four) times a day as needed for cough. 473 mL 3 08/03/20 25 Active mupirocin (BACTROBAN) 2 % ointment Apply topically 2 (two) times a day. 22 g 3 08/03/20 25 Active ketoconazole 2 % cream Apply topically daily. 30 g 3 08/03/20 25 Active tacrolimus (PROTOPIC) 0.1 % ointment Apply topically 2 (two) times a day. 30 g 3 08/03/20 25 025 Active dexAMETHasone 0.5 mg/5 mL solution Swish and spit 5 mL (0.5 mg total) 3 (three) times a day. Rinse 5 minutes.Do not swallow. No food or drink for 20 min. 450 mL 5 08/10/20 25 026 Active nystatin (MYCOSTATIN) 100,000 units/mL suspension Swish and spit 5 mL (500,000 Units total) 3 (three) times a day. 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 500 mL 6 08/16/20 25 Active sodium chloride 0.9 % nebulizer solutionIndicat ions:Pneumonia of both lungs due to infectious organism, unspecified part of lung Take 3 mL by nebulization as needed (thick secretions). 90 mL 12 08/16/20 25 Active guaiFENesin (ROBITUSSIN) 100 mg/5 mL syrupIndication s:Squamous cell carcinoma of skin Take 10 mL (200 mg total) by mouth 4 (four) times a day as needed for cough. 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 500 mL 6 05/30/20 25 025 Discontinu ed(Reorder ) nystatin (MYCOSTATIN) 100,000 units/mL suspension Take 5 mL (500,000 Units total) by mouth 4 (four) times a day for 5 days. 100 mL 07/23/20 25 025 diphenhydrAMINE -lidocaine-alum -mag-simethicon e (MAGIC MOUTHWASH-BLM) [phone] mg/30mL suspension Swish and spit 10 mL 4 (four) times a day as needed (Please swish and swallow 10 mL up to 4 times a day as needed for oral discomfort). 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 500 mL 6 08/03/20 25 025 Discontinu ed(Reorder ) sodium chloride 0.9 % nebulizer solutionIndicat ions:Pneumonia of both lungs due to infectious organism, unspecified part of lung Take 3 mL by nebulization as needed (thick secretions). 90 mL 12 08/15/20 25 025 Discontinu ed(Reorder ) sodium chloride 0.9 % nebulizer solutionIndicat ions:Pneumonia of both lungs due to infectious organism, unspecified part of lung Take 3 mL by nebulization as needed (thick secretions). 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 His treatment has been complicated by a herniated disc which is causing him much distress. Getting steroid injection tomorrow. May ultimately need ortho sturgery. Cutaneous squamous cell carcinoma, locally advanced S/p 4 cycles of neoadjuvant cemiplimab and surgery with nodes involved - starting adjuvant radiation - lavern testing today - PET-CT 3 months after finishing radiation in July or August PV and potentially CLL - diagnosed by Hansel Green - followed by Dr. Green and Dr. Chavarria - holding hydroxyuria - consider referral to [facility] - reviewing bone marrow biopsy results tomorrow [...] and looking forward to his trip to [place]. Cutaneous squamous cell carcinoma, locally advanced - [...] issues or concerns. [facility] Assessment & Plan (01/29/2023 [...] 10/04/2012 Overview (12/30/2014): Malignant tumor of prostate Resolved Problems Problem Noted Date Diagnosed Date [...] FNA of this nodule on 01/08/2023 at [facility] and the cytology was insufficient for diagnosis. [...] FNA of this nodule on 01/08/2023 at [facility] and the cytology was insufficient for diagnosis. [...] 04/04/2020 9:58 AM (G47.33) Acquired hypothyroidism 05/26/201712/10 Encounters Date Type Department Care Team Description 08/16/2025 11:30 AM EDT [facility], [facility] [address]th [place] [address] Maribel Nur MD, MPH Shoshana Fernandez, [facility] Dysphagia, oropharyngeal phase (Primary Dx) 08/16/2025 11:05 AM EDT Hospital Encounter [facility] Department of Radiation Oncology [address], [address] [place] [address] Cathy Schmidt PA-C Schoenfeld, Jonathan D, MD, MPH 08/15/2025 Orders Only [facility] Department of Radiation Oncology [address], [address] [place] [address] Cathy Schmidt PA-C Pneumonia of both lungs due to infectious organism, unspecified part of lung (Primary Dx) 08/14/2025 Orders Only [facility] Department of Radiation Oncology [address], [address] [place] [address] Cathy Schmidt PA-C Pneumonia of both lungs due to infectious organism, unspecified part of lung (Primary Dx); 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 08/10/2025 1:30 PM EDT Hospital Encounter [facility] Department of Radiation Oncology [address], [address] [place] [address] Cathy Schmidt PA-C Schoenfeld, Jonathan D, MD, MPH 08/10/2025 11:45 AM EDT - 08/10/2025 1:29 PM EDT Hospital Encounter [facility] Imaging Department, [facility], Radiography [address], [address] [place] [address] Cathy Schmidt, Brennon Concepcion MD, MPH Discharge Disposition: Home or Self Care 08/10/2025 11:30 AM EDT Office Visit Oral Medicine, [address], [address] [place] [address] Hao Robertson DMD, PhD Mucositis oral (Primary Dx); Squamous cell carcinoma of parotid; History of radiation to head and neck region 08/10/2025 E-Consult [facility] [address] [place] [address] Ellie Scruggs MD 08/10/2025 Documentation Oral Medicine, [address] [place] [address] Esperanza Smith DMD 08/08/2025 11:45 AM EDT Nutrition Nutrition Department, [address] [address] Brennon Delcid MD, MPH Zenobia Hebert, HARJINDER Protein-calorie malnutrition, unspecified severity (Primary Dx) 08/08/2025 Orders Only [facility] Department of Radiation Oncology [address], [address] [place] [address] Cathy Schmidt PA-C Acquired hypothyroidism (Primary Dx) 08/03/2025 1:00 PM EDT Procedure visit Respiratory Therapy Department, [place] [address] Kelli Self M.D. 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; Polycythemia vera; Lumbar herniated disc; Mucositis; Acquired hypothyroidism; Fatigue, unspecified type 08/03/2025 10:00 AM EDT Office Visit [facility], [address] [place] [address] Britany Kaplan MD, MPH Oral ulcer (Primary Dx); Mucositis; Squamous cell carcinoma of skin; Actinic keratoses 08/03/2025 Orders Only [facility] Department of Radiation Oncology [address] [place] [address], [address] [place] [address] Cathy Schmidt PA-C 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 (Primary Dx); Excessive oral secretions 08/01/2025 Orders Only [facility] Department of Radiation Oncology [address] [place] [address], [address] [place] [address] Cathy Schmidt PA-C 07/26/2025 Orders Only [facility] Department of Radiation Oncology [address], [address] [place] [address] Cathy Schmidt PA-C 07/26/2025 Documentation [facility], [facility] [address], [address]th [place] [address] Shoshana Fernandez, [facility] 07/25/2025 Telephone [facility], [facility] [address], 5th [place] [address] Mary Larsen, PHILIPPE Symptom Management 07/24/2025 Orders Only [facility], [facility] [address], [address] [place] [address] Libertad Ramos V, Renal mass (Primary Dx) 07/23/2025 Refill [facility], [facility] [address] [place] [address] Chandler Bernabe MD, PhD Med Change Request 07/20/2025 Orders Only Center for Melanoma, [facility] [address], [address]th [place] [address] Libertad Ramos DO 07/20/2025 Telephone [facility], [facility] [address], [address] [place] [address] Eliz Huynh, RN Symptom Management 07/20/2025 Telephone [facility], [facility] [address] [place] [address] Eliz Huynh, RN Care Coordination 07/20/2025 Orders Only [facility] Department of Radiation Oncology [address], [address] [place] [address] Cathy Schmidt PA-C 07/18/2025 Telephone [facility] Department of Radiation Oncology [address], [address] [place] [address] Brennon Delcid MD, MPH call back (Yuriy Morgan, this patient left a voice mail requesting a call back to discuss some symptoms that are not going away, he mentioned Thrush, please advise, thanks.) 07/15/2025 Orders Only [facility]oma, [address], [address] [place] [address] Libertad Ramos V, DO Renal mass (Primary Dx) 07/14/2025 2:30 PM EDT Office Visit Center for Leukemia, Division of Hematologic Oncology, [address], [address] [place] [address] Kelli Self M.D. 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 Leukemia MD Mike Discharge Disposition: Home or Self Care 07/14/2025 10:00 AM EDT Office Visit [facility], [address], [address] [place] [address] Maribel Nur MD, MPH Squamous cell carcinoma, scalp/neck (Primary Dx) 07/13/2025 11:00 AM EDT Nutrition Nutrition Department, [address] [address] Zenobia Hebert LDN Dietary counseling and surveillance (Primary Dx) 07/05/2025 2:20 PM EDT Office Visit [facility] at [address] [address] Keith Bolton MD Lumbar disc herniation with radiculopathy (Primary Dx) 06/29/2025 Documentation Nutrition Department, [facility] [address] [place] [address] Zenobia Hebert LDN 06/26/2025 Ancillary Orders [facility] [address] [place] [address] Keith Bolton MD 06/26/2025 Ancillary Orders [facility] [address] [place] [address] Keith Bolton MD 06/26/2025 Ancillary Orders [facility] [address] [place] [address] Keith Bolton MD 06/26/2025 Ancillary Orders [facility] [address] [place] [address] Keith Bolton MD 06/21/2025 10:58 AM EDT - 06/21/2025 11:59 PM EDT Hospital Encounter [facility] Department of Radiation Oncology [address], [address] [place] [address] Cathy Schmidt PA-C Schoenfeld, Jonathan D, MD, MPH Discharge Disposition: Home or Self Care 06/21/2025 Orders Only [facility], [facility] [address], [address]th [place] [address] Cathy Schmidt PA-C Squamous cell carcinoma, scalp/neck (Primary Dx) 06/15/2025 12:10 AM EDT - 06/15/2025 11:59 PM EDT Hospital Encounter [facility] [address] [place] [address] Keith Bolton MD Discharge Disposition: Home or Self Care 06/15/2025 12:05 AM EDT - 06/15/2025 12:09 AM EDT Hospital Encounter [facility] [address] [place] [address] Keith Bolton MD Discharge Disposition: Home or Self Care 06/15/2025 - 06/15/2025 12:04 AM EDT Hospital Encounter [facility] [address] [place] [address] Keith Bolton MD Discharge Disposition: Home or Self Care 06/14/2025 2:15 PM EDT Nutrition Nutrition Department, [address] [address] Brennon Delcid MD, MPH Zenobia Hebert, HARJINDER Dietary counseling and surveillance (Primary Dx) 06/14/2025 1:00 PM EDT Office Visit [facility], [address] [place] [address] Libertad Ramos DO Squamous cell carcinoma of skin (Primary Dx); Rash and other nonspecific skin eruption; Polycythemia vera; Acquired hypothyroidism; Lumbar herniated disc 06/14/2025 10:25 AM EDT - 06/14/2025 11:59 PM EDT Hospital Encounter [facility] Department of Radiation Oncology [address] [place] [address], [facility] [address] [place] [address] Brennon Delcid MD, MPH Discharge Disposition: Home or Self Care 06/14/2025 Radiation Completion Encounter [facility] Department of Radiation Oncology [address] [place] [address], [facility] [address] [place] [address] Brennon Delcid MD, MPH 06/13/2025 11:30 AM EDT [facility], [address] [place] [address] Libertad Ramos DO Burke, Elaine, [facility] Dysphagia, oropharyngeal phase (Primary Dx) 06/13/2025 10:17 AM EDT - 06/13/2025 11:59 PM EDT Hospital Encounter [facility] Department of Radiation Oncology [address] [place] [address], [address] [place] [address] Brennon Delcid MD, MPH Discharge Disposition: Home or Self Care 06/13/2025 10:17 AM EDT Hospital Encounter [facility] Department of Radiation Oncology [address], [facility] [address] [place] [address] Brennon Delcid MD, MPH Discharge Disposition: Home or Self Care 06/12/2025 2:35 PM EDT - 06/12/2025 11:59 PM EDT Hospital Encounter [facility] Department of Radiation Oncology [address] [place] [address], [facility] [address] [place] [address] Brennon Delcid MD, MPH Discharge Disposition: Home or Self Care 06/09/2025 10:19 AM EDT - 06/09/2025 11:59 PM EDT Hospital Encounter [facility] Department of Radiation Oncology [address] [place] [address], [address] [address] Brennon Delcid MD, MPH Discharge Disposition: Home or Self Care 06/09/2025 10:00 AM EDT Nutrition Nutrition Department, [address] [address] Brennon Delcid MD, MPH Zenobia Hebert LDN Dietary counseling and surveillance (Primary Dx) 06/08/2025 10:24 AM EDT - 06/08/2025 11:59 PM EDT Hospital Encounter [facility] Department of Radiation Oncology [address] [place] [address], [address] [address] Brennon Delcid MD, MPH Discharge Disposition: Home or Self Care 06/07/2025 10:29 AM EDT - 06/07/2025 11:59 PM EDT Hospital Encounter [facility] Department of Radiation Oncology [address] [place] [address], [address] [address] Brennon Delcid MD, MPH Discharge Disposition: Home or Self Care 06/07/2025 Transcribe Orders [facility] [employer] [facility] Inter[facility] [place] [address] Mariely Vargas MD 06/06/2025 11:30 AM EDT [facility], [facility] [address], [address]th [place] [address] Libertad Ramos V, Shoshana Contreras, [facility] Dysphagia, oropharyngeal phase (Primary Dx) 06/06/2025 10:27 AM EDT - 06/06/2025 11:59 PM EDT Hospital Encounter [facility] Department of Radiation Oncology [address] [place] [address], [facility] [address] [place] [address] Brennon Delcid MD, MPH Discharge Disposition: Home or Self Care 06/06/2025 10:27 AM EDT - 06/06/2025 11:59 PM EDT Hospital Encounter [facility] Department of Radiation Oncology [address] [place] [address], [address] [address] Brennon Delcid MD, MPH Discharge Disposition: Home or Self Care 06/05/2025 3:36 PM EDT - 06/05/2025 11:59 PM EDT Hospital Encounter [facility] Department of Radiation Oncology [address] [place] [address], [address] [address] Brennon Delcid MD, MPH Discharge Disposition: Home or Self Care 06/02/2025 11:37 AM EDT - 06/02/2025 11:59 PM EDT Hospital Encounter [facility] Department of Radiation Oncology [address] [place] [address], [address] [address] Brennon Delcid MD, MPH Discharge Disposition: Home or Self Care 06/01/2025 11:45 AM EDT - 06/01/2025 11:59 PM EDT Hospital Encounter [facility] Department of Radiation Oncology [address] [place] [address], [address] [address] Brennon Delcid MD, MPH Discharge Disposition: Home or Self Care 05/31/2025 3:15 PM EDT Nutrition Nutrition Department, [facility] [address] [place] [address] Brennon Delcid MD, MPH Zenobia Hebert LDN Dietary counseling and surveillance (Primary Dx) 05/31/2025 1:35 PM EDT - 05/31/2025 11:59 PM EDT Hospital Encounter [facility] Department of Radiation Oncology [address], [address] [place] [address] Brennon Delcid MD, MPH Discharge Disposition: Home or Self Care 05/31/2025 8:10 AM EDT Office Visit [facility] [place] [address] [address] Keith Botlon MD Chronic bilateral low back pain with left-sided sciatica (Primary Dx); Left leg pain 05/31/2025 7:55 AM EDT - 05/31/2025 1:34 PM EDT Hospital Encounter [facility] [address] [place] [address] Keith Bolton MD Discharge Disposition: Home or Self Care 05/30/2025 1:33 PM EDT - 05/30/2025 11:59 PM EDT Hospital Encounter [facility] Department of Radiation Oncology [address] [place] [address], [facility] [address] [place] [address] Brennon Delcid MD, MPH Discharge Disposition: Home or Self Care 05/30/2025 1:33 PM EDT - 05/30/2025 11:59 PM EDT Hospital Encounter [facility] Department of Radiation Oncology [address] [place] [address], [facility] [address] [place] [address] Brennon Delcid MD, MPH Discharge Disposition: Home or Self Care 05/30/2025 11:30 AM EDT [facility], [address] [place] [address] Libertad Ramos V, Shoshana Contreras, [facility] Dysphagia, oropharyngeal phase (Primary Dx) 05/30/2025 10:30 AM EDT Office Visit [facility], Division of Hematologic Oncology, [facility] [address]th [place] [address] Kelli Self M.D. 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); Splenomegaly 05/29/2025 3:07 PM EDT - 05/29/2025 11:59 PM EDT Hospital Encounter [facility] Department of Radiation Oncology [address] [place] [address], [address] [place] [address] Brennon Delcid MD, MPH Discharge Disposition: Home or Self Care 05/29/2025 Orders Only [facility] Department of Orthopaedics [address] [place] [address] Kasia Luciano Lumbar pain (Primary Dx) 05/26/2025 8:20 AM EDT - 05/26/2025 11:59 PM EDT Hospital Encounter [facility] Department of Radiation Oncology [address] [place] [address], [address] [place] [address] Brennon Delcid MD, MPH Discharge Disposition: Home or Self Care 05/25/2025 10:40 AM EDT - 05/25/2025 11:59 PM EDT Hospital Encounter [facility], [address] [address] Discharge Disposition: Home or Self Care 05/25/2025 8:31 AM EDT - 05/25/2025 10:39 AM EDT Hospital Encounter [facility] Department of Radiation Oncology [address] [place] [address], Floor [address]2 [place] [address] Brennon Delcid MD, MPH Discharge Disposition: Home or Self Care 05/24/2025 2:15 PM EDT Nutrition Nutrition Department, [address] [place] [address] [place] [address] Brennon Delcid MD, MPH Zenobia Hebert LDN Dietary counseling and surveillance (Primary Dx) 05/24/2025 1:06 PM EDT - 05/24/2025 11:59 PM EDT Hospital Encounter [facility] Department of Radiation Oncology [address] [facility], Floor [address]2 [place] [address] Brennon Delcid MD, MPH Discharge Disposition: Home or Self Care from Last 3 Months Immunizations Immunization Administration Dates Next Due Pneumococcal polysaccharide PPSV23 07/19/2010(De ferred: Patient Decision) Family History Medical History Relation Comments Basal cell carcinoma Brother Relation Status Comments Brother Social History Tobacco Use Types Packs/Day Years Used Date Smoking Tobacco: Never Smokeless Tobacco: Never Tobacco Cessation:Counseling Given: Not Answered Alcohol Use Standard Drinks/Week Comments Yes 22 [...] Orientation Straight 07/12/2024 4: 52 PM EDT Last Filed Vital Signs Vital Sign Reading Time Taken Comments Blood Pressure 139/65 08/16/2025 11:06 AM EDT Pulse 75 08/16/2025 11:06 AM EDT Temperature 36.2 C (97.2 F) 08/16/2025 11:06 AM EDT Respiratory Rate 18 08/16/2025 11:06 AM EDT Oxygen Saturation 99% 08/16/2025 11:06 AM EDT Inhaled Oxygen Concentration 100% 03/29/2025 1 2:33 PM EDT Weight 73.3 kg (161 lb 9.6 oz) 08/16/2025 11:06 AM EDT Height 174.3 cm (5' 8.62 ) 07/05/2025 2:01 PM ED T Body Mass Index 24.13 07/05/2025 2:01 PM EDT Plan of Treatment Upcoming Encounters Date Type Department Care Team (Late st Contact Info) Description 06/21/2025 Procedure Pass [facility] Imaging Department, [facility], [place] [address] [facility], Floor [address]1 [place] [address] 07/24/2025 [facility], [facility], MRI [address] [facility], Floor [address]1 [place] [address] 08/14/2025 Procedure Pass [facility] Imaging Department, [facility], [place] [address] [facility], Floor [address]1 [place] [address] 08/24/2025 10:00 AM EDT Appointment [facility] Department of Radiation Oncology [address] [facility], Floor [address] [place] [address] Cathy Schmidt PA-C [address] [place] [address] [place] [address] [email or web address] Brennon Delcid MD, MPH [address] [place] [address], ASB1- L2 [place] [address] [email or web address] 08/31/2025 10:00 AM EDT Office Visit Oral Medicine, [address], 11th [place] [address] Hao Robertson DMD, PhD [address] [place] [phone] [email or web address] 09/05/2025 11:00 AM EDT Nutrition Nutrition Department, [address] [address] Zenobia Hebert LDN [address] [place] [phone] [email or web address] 09/07/2025 11:00 AM EDT Treatment [facility], [address], 11th Floor [place], [place] [phone] Maribel Nur MD, MPH [address] [place], [place] [email or web address] Shoshana Fernandez, [facility] [address] [place] [phone] [email or web address] 09/13/2025 9:30 AM EST Blood Draw Laboratory Services, [address], 2nd Floor [place], [place] Libertad Ramos DO [address] [place], [place] [email or web address] 09/13/2025 12:30 PM EST Appointment Erika [facility] Imaging Department, [facility], PET/CT [address] [place], [place] Libertad Ramos DO [address] [place] [address] [email or web address] 09/13/2025 1:40 PM EST Appointment [facility] Imaging Department, [facility], [place] [address] [facility], Floor [address]1 [place], [place] [phone] Cathy Schmidt PA-C [facility] [place] [address] Brennon Delcid MD, MPH [address] [facility], ASB1- L2 [place], [place] [email or web address] 09/13/2025 3:30 PM EST Office Visit Center for Head and Neck Oncology, [facility] Cancer [address], [address] [place] [address] Brennon Delcid MD, MPH [address] [facility], ASB1- L2 [place] [address] [email or web address] 09/15/2025 8:30 AM EST Office Visit [facility], [address], [address] [place] [address] Maribel Nur MD, MPH [address] [place] [address] [email or web address] 09/19/2025 9:20 AM EST Office Visit [facility] [address] [place] [phone] Alla Escobar MD [address] [place] [address] 3[address] [place] [address] 09/19/2025 10:00 AM EST Telemedicine Center for Melanoma, [address], 5th [place] [address] Libertad Ramos DO [address] [place] [phone] [email or web address] 10/26/2025 11:40 AM EST Appointment Erika Lank Imaging Department, [facility], MRI [address] [facility], Floor [address]1 [place] [address] Libertad Ramos DO [address] [place] [phone] [email or web address] 11/07/2025 10:30 AM EST Blood Draw Laboratory Services, [facility] [address] [facility], 2nd [place] [address] Kelli Self M.D. Leukemia MD Mike 450 [facility]2057 [place] [address] [email or web address] 11/07/2025 11:30 AM EST Office Visit Center for Leukemia, Division of Hematologic Oncology, [facility] [address] [facility], 8th [place] [address] Kelli Self M.D. Leukemia MD Mike 450 [facility]2057 [place] [address] [email or web address] Health Maintenance Due Date Last Done Comments Adult Td,Tdap Booster 1950 DEPRESSION SCREENING 1963 HEPATITIS C SCREENING 1969 PNEUMOCOCCAL VACCINES (50+ years) (1 of 2 - PCV) 1970 ZOSTER VACCINES (1 of 2) 1970 COLOGUARD 1996 COLONOSCOPY 1996 COLORECTAL CANCER SCREENING 1996 FIT TEST 1996 FOBT 1996 SIGMOIDOSCOPY 1996 VIRTUAL COLONOSCOPY 1996 DIABETIC EYE EXAM 01/29/2023 LIPID PANEL 12/31/2024 12/31/2023, 12/31/2023 URINE MICROALBUMIN/CREATININE RATIO 12/31/2024 12/31/2023 INFLUENZA VACCINE (#1) 2025 , 09/01/2023, 08/29/2022, Additional history exists COVID-19 VACCINE (2024- season) 2025 09/04/2022, 03/06/2022, 08/22/2021, Additional history exists HEMOGLOBIN A1C 12/15/2025 06/14/2025, 03/1 02/2025, 12/31/2023, Additional history exists BLOOD PRESSURE 02/14/2026 08/16/2025 TSH LEVEL 08/10/2026 08/10/2025, 08/2 11/2024, 05/30/2025, Additional history exists RSV VACCINE (1 - 1-dose 75+ series) 2026 SMOKING STATUS SCREENING (Once After 26 Yrs) Completed 03/29/2025 HEPATITIS A VACCINES Aged Out No long er eligible based on patient's age to complete this topic HIB VACCINES Aged Out No longer eligi ble based on patient's age to complete this topic MENINGOCOCCAL VACCINES (ACWY) Aged Out No longer eligible based on patient's age to complete this topic MENINGOCOCCAL VACCINES (B) Aged Out N o longer eligible based on patient's age to complete this topic Medical Devices Implanted Type Area Roller Pneumatic Device Identifier Shelf Expiration Date Model / Serial / Lot Ivc Filter Procedures Procedure Name Priority Date/Time Associated Diagnosis Comments XR CHEST PA AND LATERAL 2 VIEWS Routine 08/10/2025 12:51 PM EDT Acquired hypothyroidism IRON AND IRON BINDING CAPACITY Routine 08/10/2025 12:50 PM EDT Acquired hypothyroidism TSH Routine 08/10/2025 12:50 PM EDT Acquired hypothyroidism COMPREHENSIVE METABOLIC PANEL Routine 08/10/2025 12:50 PM EDT Acquired hypothyroidism HC BLOOD COUNT COMPLETE AUTO&AUTO DIFRNTL WBC Routine 08/10/2025 12:50 PM EDT Acquired hypothyroidism FUNGAL CULTURE Routine 08/03/2025 1:25 PM EDT 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 US ABDOMEN COMPLETE (ADULT) Routine 07/14/2025 1:49 PM EDT Splenomegaly TYPE AND SCREEN (ABO,RH,ANTIBODY SCREEN) Routine 07/14/2025 11:49 AM EDT 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 COMPREHENSIVE METABOLIC PANEL Routine 07/14/2025 11:49 AM EDT 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 HC BLOOD COUNT COMPLETE AUTO&AUTO DIFRNTL WBC Routine 07/14/2025 11:49 AM EDT 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 MRI SPINE MUSCULOSKELETAL FOCUS OUTSIDE (NO INTERPRETATION) Routine 06/15/2025 12:10 AM EDT MRI SPINE MUSCULOSKELETAL FOCUS OUTSIDE (NO INTERPRETATION) Routine 06/15/2025 12:05 AM EDT MRI SPINE MUSCULOSKELETAL FOCUS OUTSIDE (NO INTERPRETATION) Routine 06/15/2025 12:00 AM EDT HEMOGLOBIN A1C, HARTMAN SENDOUT Routine 06/14/2025 2:10 PM EDT Squamous cell carcinoma of skin MRD LAVERN FOLLOW-UP Routine 06/14/2025 2:10 PM EDT Squamous cell carcinoma of skin MRD LAVERN FOLLOW-UP Routine 06/14/2025 11:48 AM EDT Squamous cell carcinoma of skin RAD ONC ARIA SESSION SUMMARY Routine 06/14/2025 11:29 AM EDT SIGNATERA ONLY Routine 06/14/2025 SIGNATERA ONLY Routine 06/14/2025 RAD ONC ARIA SESSION SUMMARY Routine 06/13/2025 10:36 AM EDT RAD ONC ARIA SESSION SUMMARY Routine 06/12/2025 3:32 PM EDT RAD ONC ARIA SESSION SUMMARY Routine 06/09/2025 10:56 AM EDT RAD ONC ARIA SESSION SUMMARY Routine 06/08/2025 11:01 AM EDT RAD ONC ARIA SESSION SUMMARY Routine 06/07/2025 11:00 AM EDT RAD ONC ARIA SESSION SUMMARY Routine 06/06/2025 11:30 AM EDT RAD ONC ARIA SESSION SUMMARY Routine 06/05/2025 4:22 PM EDT RAD ONC ARIA SESSION SUMMARY Routine 06/02/2025 12:00 PM EDT RAD ONC ARIA SESSION SUMMARY Routine 06/01/2025 12:19 PM EDT RAD ONC ARIA SESSION SUMMARY Routine 05/31/2025 2:02 PM EDT XR LUMBOSACRAL SPINE 4 OR MORE VIEWS Routine 05/31/2025 8:13 AM EDT Lumbar pain RAD ONC ARIA SESSION SUMMARY Routine 05/30/2025 2:05 PM EDT Hold Specimen In Blood Bank (No Testing Performed) Routine 05/30/2025 9:39 AM EDT Polycythemia vera URIC ACID Routine 05/30/2025 9:39 AM EDT Polycythemia vera TSH Routine 05/30/2025 9:39 AM EDT Acquired hypothyroidism IRON AND IRON BINDING CAPACITY Routine 05/30/2025 9:39 AM EDT Polycythemia vera RETICULOCYTES Routine 05/30/2025 9:39 AM EDT Polycythemia vera RAPID HEME PANEL Routine 05/30/2025 9:39 AM EDT Polycythemia vera PHOSPHORUS Routine 05/30/2025 9:39 AM EDT Polycythemia vera MAGNESIUM Routine 05/30/2025 9:39 AM EDT Polycythemia vera LDH Routine 05/30/2025 9:39 AM EDT Polycythemia vera HAPTOGLOBIN Routine 05/30/2025 9:39 AM EDT Polycythemia vera FOLATE Routine 05/30/2025 9:39 AM EDT Polycythemia vera FERRITIN Routine 05/30/2025 9:39 AM EDT Polycythemia vera ERYTHROPOIETIN LEVEL Routine 05/30/2025 9:39 AM EDT Polycythemia vera VITAMIN B12 Routine 05/30/2025 9:39 AM EDT Polycythemia vera HC BLOOD COUNT COMPLETE AUTO&AUTO DIFRNTL WBC Routine 05/30/2025 9:39 AM EDT Polycythemia vera COMPREHENSIVE METABOLIC PANEL Routine 05/30/2025 9:39 AM EDT Polycythemia vera RAPID HEME PANEL Routine 05/30/2025 12:0 0 AM EDT RAD ONC ARIA SESSION SUMMARY Routine 05/29/2025 3:35 PM EDT RAD ONC ARIA SESSION SUMMARY Routine 05/26/2025 8:58 AM EDT RAD ONC ARIA SESSION SUMMARY Routine 05/25/2025 9:06 AM EDT RAD ONC ARIA SESSION SUMMARY Routine 05/24/2025 1:55 PM EDT MICROALBUMIN/CREATININ E RATIO, RANDOM URINE Routine 12/31/2023 11:24 AM EST Type 2 diabetes mellitus without complication, without long-term current use of insulin LIPID PANEL Routine 12/31/2023 11:14 AM EST Type 2 diabetes mellitus without complication, without long-term current use of insulin from Last 3 Months or Most Recently Relevant to Health Maintenance Results * XR CHEST PA AND LATERAL 2 VIEWS (08/10/2025 12:51 PM EDT) MGB IMG RECOMMENDATION COMMENT Left lower lobe pneumonia [facility] Anatomical Region Laterality Modality Chest Computed Radiogr aphy Other 08/11/2025 11:0 1 AM EDT Impressions 08/11/2025 11:02 AM EDT Left lower lobe pneumonia. Recommend follow-up chest radiograph in 6-8 weeks to document clearing. Follow-up recommendations were communicated and documented using a closed loop communication system. Narrative 08/11/2025 11:02 AM EDT XR CHEST PA AND LATERAL 2 VIEWS Referring clinician's provided indication for this examination in [facility]: Cough; history of CLL, polycythemia vera, and prostate cancer. recently completed XRT to parotid gland for SCC. Increased sputum/ secretions, r/o pneumonia COMPARISON: XR CHEST OUTSIDE (NO INTERPRETATION) FINDINGS: Devices/Tubes/Lines: None. Lungs: There is a new airspace opacity within the left lower lobe Pleura: Normal. No pleural effusion or pneumothorax. Heart/Mediastinum: Normal heart and mediastinum. Bones/Soft Tissues: Normal. No significant skeletal abnormality. Procedure Note Moreno Marrero MD - 08/11/2025 XR CHEST PA AND LATERAL 2 VIEWS Referring clinician's provided indication for this examination in [facility]:Cough; history of CLL, polycythemia vera, and prostate cancer. recentlycompleted XRT to parotid gland for SCC. Increased sputum/ secretions, r/opneumonia COMPARISON: XR CHEST OUTSIDE (NO INTERPRETATION) FINDINGS: Devices/Tubes/Lines: None. Lungs: There is a new airspace opacity within the left lower lobe Pleura: Normal. No pleural effusion or pneumothorax. Heart/Mediastinum: Normal heart and mediastinum. Bones/Soft Tissues: Normal. No significant skeletal abnormality. IMPRESSION: Left lower lobe pneumonia. Recommend follow-up chest radiograph in 6-8weeks to document clearing. Follow-up recommendations were communicated and documented using a closedloop communication system. us Cathy Schmidt PA-C IMG XR CHEST Fi nal Result * (ABNORMAL) Comprehensive metabolic panel (08/10/2025 12:50 PM EDT) Only the most recent of3 resultswithin the time period is included. SODIUM 140 136 - 145 mmol/L [facility] POTASSIUM 4.0 3.4 - 5.1 mmol/L [facility] CHLORIDE 102 98 - 107 mmol/L [facility] CO2 24 22 - 31 mmol/L [facility] BUN 13 6 - 23 mg/dL [facility] CREATININE 0.68 0.50 - 1.20 mg/dL [facility] GLUCOSE 118(H) 70 - 100 mg/dL [facility] ALBUMIN 4.3 3.5 - 5.2 g/dL [facility] TOTAL PROTEIN 6.7 6.4 - 8.3 g/dL [facility] CALCIUM 9.7 8.8 - 10.7 mg/dL [facility] ALKALINE PHOSPHATASE 106 40 - 129 U/L [facility] TOTAL BILIRUBIN 0.5 0.2 - 1.2 mg/dL [facility] AST 20 <41 U/L [facility] ALT 15 <42 U/L [facility] GLOBULIN 2.4 2.3 - 4.2 g/dL [facility] EGFR 98 >59 mL/min/1.7 3m2 [facility] Comment:Estimated glomerular filtration rate calculated using the CKD-EPI refit equation. ANION GAP 14 7 - 17 mmol/L [facility] Blood 08/10/2025 12:5 0 PM EDT 08/10/2025 1:29 PM EDT Cathy Schmidt PA-C LAB BLOOD ORDERABL ES Final Result Performing Organization Address [facility] de Phone Number [facility] [address] [place] [phone] * (ABNORMAL) Iron and iron binding capacity (08/10/2025 12:50 PM EDT) Only the most recent of2 resultswithin the time period is included. IRON 57(L) 59 - 158 ug/dL [facility] IRON BINDING CAPACITY 241 220 - 460 ug/dL [facility] TRANSFERRIN SATURAT. 24 14 - 50 % [facility] Blood 08/10/2025 12:5 0 PM EDT 08/10/2025 1:29 PM EDT Cathysuma Schmidt PA-C LAB BLOOD ORDERABL ES Final Result Performing Organization Address [facility] de Phone Number [facility] [address] [place] [phone] * (ABNORMAL) CBC and differential (08/10/2025 12:50 PM EDT) Only the most recent of3 resultswithin the time period is included. WBC 18.62(H) 4.00 - 10.00 K/uL [facility] RBC 3.96(L) 4.50 - 6.40 M/uL [facility] HGB 10.2(L) 13.5 - 18.0 g/dL [facility] HCT 34.2(L) 40.0 - 54.0 % [facility] PLT 480(H) 150 - 450 K/uL [facility] MCV 86.4 80.0 - 100.0 fL [facility] MCH 25.8(L) 27.0 - 32.0 pg [facility] MCHC 29.8(L) 32.0 - 36.0 g/dL [facility] RDW 21.0(H) 11.5 - 14.5 % [facility] MPV 10.9 8.4 - 12.0 fL [facility] NRBC 0.20(H) 0 /100 WBCs [facility] ABSOLUTE NRBC 0.04(H) 0 K/uL [facility] DIFF METHOD MANUAL [facility] NEUTS (MANUAL) 90.8(H) 48.0 - 76.0 % [facility] LYMPHS 3.1(L) 18.0 - 41.0 % [facility] BANDS 2.3 0.0 - 3.0 % [facility] MONOS 0.8(L) 4.0 - 11.0 % [facility] EOSINOPHIL 0.7 0.0 - 5.0 % [facility] BASOPHIL 0.0 0.0 - 1.5 % [facility] BLASTS 0.0 0 % [facility] MYELOS 1.5(H) 0 % [facility] METAS 0.8(H) 0 % [facility] ABSOLUTE NEUTS 16.91(H) 1.92 - 7.60 K/uL [facility] ABSOLUTE LYMPHS 0.58(L) 0.72 - 4.10 K/uL [facility] ABSOLUTE BANDS 0.43(H) 0.00 - 0.30 K/uL [facility] ABSOLUTE MONOS 0.15(L) 0.16 - 1.10 K/uL [facility] ABSOLUTE EOS 0.13 0.00 - 0.50 K/uL [facility] ABSOLUTE BASO 0.00 0.00 - 0.15 K/uL [facility] ABSOLUTE BLASTS 0.00 0 K/uL [facility] ABSOLUTE MYELOS 0.28(H) 0 K/uL [facility] ABSOLUTE METAS 0.15(H) 0 K/uL [facility] ANISO Few [facility] POIKILOCYTOSIS MARKED [facility] POLYCHROME Few [facility] SCHISTOCYTES Moderate [facility] TEAR DROPS MARKED [facility] HYPOCHROMIA Few [facility] MACROCYTES Few [facility] MICROCYTES Moderate [facility] OVALOCYTES MARKED [facility] STOMATOCYTES Few [facility] Blood 08/10/2025 12:5 0 PM EDT 08/10/2025 1:29 PM EDT Cathy Schmidt PA-C LAB BLOOD ORDERABL ES Final Result Performing Organization Address [facility] Co de Phone Number [facility] [address] [place] [phone] * TSH (08/10/2025 12:50 PM EDT) Only the most recent of2 resultswithin the time period is included. Pathologist [facility] [place] TSH 2.66 0.27 - 4.20 uIU/mL [facility] Blood 08/10/2025 12:5 0 PM EDT 08/10/2025 1:29 PM EDT Cathy SCOTT-Chris LAB BLOOD ORDERABL ES Final Result Performing Organization Address [facility] Co de Phone Number [facility] [address] [place] [address] * (ABNORMAL) Fungal culture (08/03/2025 1:25 PM EDT) Special Requests PLEASE CHECK CULTURE AND SENSITIVITY 08/03/2025 1:25 PM EDT [facility] Fungal Culture Only JOSÉ PARAPSILOSIS(A) 08/13/2025 12:04 PM EDT [facility] Other (Oral*) 08/03/2025 1:2 5 PM EDT 08/03/2025 4:38 PM EDT Comment:OUTER LIPS Narrative Organism Antibiotic Method Susceptibility José parapsilosis Fluconazole LOVE METHOD 16: Resistant José parapsilosis Voriconazole LOVE METHOD <=0.12: Susceptible Comment: us Cathy Schmidt PA-C MICROBIOLOGY - GEN ERAL ORDERABLES Final Result [facility] [address] [place] [address] [facility] [address] [place] [address] * US ABDOMEN COMPLETE (ADULT) (07/14/2025 1:49 PM EDT) MGB IMG RECOMMENDATION COMMENT Differential : renal mass right lower pole cortical; renal right lower pole cortical lesion [facility] Anatomical Region Laterality Modality Abdomen Ultrasound Other 07/14/2025 1:49 PM EDT Impressions 07/14/2025 3:05 PM EDT 1. Hepatosplenomegaly and fatty liver. 2. Exophytic lesion in the right lower pole, indeterminate, may represent a primary renal neoplasm. Consider abdominal MRI with renal mass protocol for further evaluation. RECOMMENDATION: MRI abdomen with renal mass protocol for further evaluation of right lower pole cortical lesion in 2-3 months. The Radiologist Diagnostic Certainty Scale is a guide that conveys to patients and providers a radiologist's subjective diagnostic confidence: Most likely means very high probability Likely means high probability May represent means intermediate probability Unlikely means low probability Very unlikely means very low probability You can find out more about our efforts to improve the clarity of radiology reports for our patients and providers by visiting [email or web address] ATTESTATION: Analia William, as teaching physician have reviewed the images, if any, for this patient's exam, and if necessary, have edited the report originally created by Keith Masters. Narrative 07/14/2025 3:05 PM EDT US ABDOMEN COMPLETE (ADULT) Referring clinician's provided indication for this examination in [facility]: Splenomegaly; history of hepatomegaly and splenomegaly evaluate liver and spleen size. TECHNIQUE: Abdominal Ultrasound Complete. COMPARISON: CT ABDOMEN/PELVIS OUTSIDE (NO INTERPRETATION) FINDINGS: Liver: Diffusely increased echogenicity consistent with fatty liver. There is a echogenic focus in the left liver measuring 0.6 x 0.5 x 0.3 cm, likely small calcification. Septated cyst measures 1.5 x 1.1 x 0.8 cm in the hepatic dome with small septal calcification. The right liver lobe measures 19.7 cm and the left liver lobe measure 10.2 cm. Main Portal Vein: Patent with normal direction of flow. Gallbladder: Multiple gallstones are present. Roman's Sign: Negative. Biliary: No intrahepatic or extrahepatic biliary ductal dilatation. The common bile duct measures 4 mm. Pancreas: Incompletely visualized. Spleen: Enlarged, measuring 19.2 cm, similar. No focal lesion. Kidneys: Right Kidney: No stones or hydronephrosis. Multiple simple cysts, largest measuring 3.3 x 2.8 x 2.0 cm. Exophytic isoechoic avascular lesion in the lower pole measuring 0.9 x 0.9 x 0.7 cm. Left Kidney: No stones or hydronephrosis. Multiple cysts, the largest measuring 3.2 x 3.0 x 2.5 cm in the upper pole. Aorta: Normal, where visualized sonographically. IVC: Normal intrahepatic segment. Procedure Note Analia Alegria MD, PhD - 07/14/2025 US ABDOMEN COMPLETE (ADULT) Referring clinician's provided indication for this examination in [facility]:Splenomegaly; history of hepatomegaly and splenomegaly evaluate liver andspleen size. TECHNIQUE: Abdominal Ultrasound Complete. COMPARISON: CT ABDOMEN/PELVIS OUTSIDE (NO INTERPRETATION) FINDINGS: Liver: Diffusely increased echogenicity consistent with fatty liver. Thereis a echogenic focus in the left liver measuring 0.6 x 0.5 x 0.3 cm,likely small calcification. Septated cyst measures 1.5 x 1.1 x 0.8 cm inthe hepatic dome with small septal calcification. The right liver lobemeasures 19.7 cm and the left liver lobe measure 10.2 cm. Main Portal Vein: Patent with normal direction of flow. Gallbladder: Multiple gallstones are present. Roman's Sign: Negative. Biliary: No intrahepatic or extrahepatic biliary ductal dilatation. The common bile duct measures 4 mm. Pancreas: Incompletely visualized. Spleen: Enlarged, measuring 19.2 cm, similar. No focal lesion. Kidneys: Right Kidney: No stones or hydronephrosis. Multiple simple cysts, largestmeasuring 3.3 x 2.8 x 2.0 cm. Exophytic isoechoic avascular lesion in thelower pole measuring 0.9 x 0.9 x 0.7 cm. Left Kidney: No stones or hydronephrosis. Multiple cysts, the largestmeasuring 3.2 x 3.0 x 2.5 cm in the upper pole. Aorta: Normal, where visualized sonographically. IVC: Normal intrahepatic segment. IMPRESSION: 1. Hepatosplenomegaly and fatty liver. 2. Exophytic lesion in the right lower pole, indeterminate, may representa primary renal neoplasm. Consider abdominal MRI with renal mass protocolfor further evaluation. RECOMMENDATION: MRI abdomen with renal mass protocol for further evaluation of right lowerpole cortical lesion in 2-3 months. The Radiologist Diagnostic Certainty Scale is a guide that conveys topatients and providers a radiologist's subjective diagnostic confidence: Most likely means very high probability Likely means high probability May represent means intermediate probability Unlikely means low probability Very unlikely means very low probability You can find out more about our efforts to improve the clarity ofradiology reports for our patients and providers by [email or web address] ATTESTATION: Analia William, as teaching physician have reviewed theimages, if any, for this patient's exam, and if necessary, have edited thereport originally created by Keith Masters. us Kelli De La Garza M.D. Leukemia [facility] Sushma BOCANEGRA IMG US ABDOMEN Final Result * Type and Screen (ABO,Rh,Antibody Screen) (07/14/2025 11:49 AM EDT) Expiration Date of Sample 07/17/2025 11:59 PM 07/14/2025 1:37 PM EDT [facility] Resulting Agency [facility] ABO Type A 07/14/2025 1:37 PM EDT [facility] Rh Type Positive 07/14/2025 1:37 PM EDT [facility] Antibody Screen Negative 07/14/2025 1:37 PM EDT [facility] Blood 07/14/2025 11:4 9 AM EDT 07/14/2025 12:06 PM EDT us Kelli De La Garza M.D. Leukemia Mike Self MD BLOOD B ANK TEST ORDERABLES Final Result Performing Organization Address City/[facility]/ZIP Co de Phone Number [facility] [address] [place] [id number] * MRI Spine (Bone) Outside (No Interpretation) (06/15/2025 12:10 AM EDT) Narrative [facility] IMG INTERFACES - 06/26/2025 7:51 AM EDT This study is for PACS storage only and not for interpretation. Keith Bolton MD IMG OUTSIDE IMAGING W/OUT IN TERPRETATION Final Result Performing Organization Address City/[facility] Co de Phone Number [facility] IMG INTERFACES * MRI Spine (Bone) Outside (No Interpretation) (06/15/2025 12:05 AM EDT) Narrative [facility] IMG INTERFACES - 06/26/2025 7:51 AM EDT This study is for PACS storage only and not for interpretation. us Keith Bolton MD IMG OUTSIDE IMAGING W/OUT IN TERPRETATION Edited Result - Final [facility] IMG INTERFACES * MRI Spine (Bone) Outside (No Interpretation) (06/15/2025 12:00 AM EDT) Narrative [facility] IMG INTERFACES - 06/26/2025 7:50 AM EDT This study is for PACS storage only and not for interpretation. Keith Bolton MD IMG OUTSIDE IMAGING W/OUT IN TERPRETATION Final Result [facility] IMG INTERFACES * (ABNORMAL) Hemoglobin A1c, sendout (06/14/2025 2:10 PM EDT) HEMOGLOBIN A1C 7.0(H) 4.0 - 5.6 % [facility] DPT OF LAB MED AND PAT+ Comment: (NOTE) Hemoglobin A1c values greater than or equal to 6.5 percent are diagnostic for diabetes mellitus. Diagnosis should be confirmed by repeat testing. In diabetic patients, HbA1c goals should be discussed with healthcare provider. Blood 06/14/2025 2:10 PM EDT 06/14/2025 2:15 PM EDT us Libertad Ramos V, DO LAB BLOOD ORDERABLES Final R esult [facility] DPT OF LAB MED AND PAT+ [address] [place] [address] * ONC [place] Follow-up (06/14/2025 2:10 PM EDT) Only the most recent of2 resultswithin the time period is included. Streck Tube RESULTS SCANNED UNDER MEDIA TAB IN [facility] LIC# [id number] [employer] RESULTS SCANNED UNDER MEDIA TAB IN [facility] LIC# [id number] Blood 06/14/2025 2:10 PM EDT 06/14/2025 2:15 PM EDT us Libertad Ramos V, DO LAB BLOOD ORDERABLES Final R esult [facility] LIC# [id number] [address] [place] [address] * Rad Onc Aria Session Summary (06/14/2025 11:29 AM EDT) Course ID C1 [facility]COLOG[facility] Course Intent Curative [facility] Course Start Date 04/13/2025 11:53 AM [facility] Course First Treatment Date 05/10/2025 10:55 AM [facility] Course Last Treatment Date 06/14/2025 11:27 AM [facility] Course Elapsed Days 35 [facility] Plan ID Tim martinez^A1_L Ear Parotid Neck [facility] Plan Name A1_L Ear Parotid Neck [facility] Plan Fractions Treated to Date 25 [facility]COL[facility] Plan Total Fractions Prescribed 25 [facility]COL[facility] Plan Prescribed Dose Per Fraction 2 Gy [facility] Plan Total Prescribed Dose 5000 cGy [facility] Plan Primary Reference Point A_Indra [facility]COL[facility] Reference Point ID AAdalberto [facility]COLOG[facility] Reference Point Dosage Given to Date 50 Gy [facility]COL[facility] Reference Point Session Dosage Given 2 Gy [facility]ATION ONCOLOG[facility] 06/14/2025 11:2 9 AM EDT us Conversion Provider Not In Sys RADIATION ONCOLOG Y ORDERABLES Final Result [facility]COL[facility] * Signatera only (06/14/2025) Only the most recent of2 resultswithin the time period is included. Pathologist [facility] [place] Signatera Test Result Test Not Performed [facility] Signatera MTM Readout Test Not Performed CÜR Comment: Two sets of blood samples from the same date of collection were received for this patient; testing was not performed on the duplicate samples. [email or web address] customer care can be reached by telephone at [phone], by FAX at [phone], and by email at [email or web address]. Please see the attached PDF for more information. Limitations Signatera is a personalized, tumor-informed test for the longitudinal detection of circulating tumor DNA (ctDNA). Interval testing is recommended for all patients. Studies have demonstrated that when ctDNA is detected (Signatera Positive) following surgery or definitive treatment, the risk for disease relapse is high without further treatment. Conversely, when ctDNA is not detected, the patient may be considered at lower risk for relapse. For those with multiple timepoints, upward trending ctDNA levels are suggestive of increasing tumor burden (1,2). For a single time point in isolation, the absolute MTM/mL value has no known clinical significance and should not be compared across patients. Test results should be interpreted in context of other clinicopathological features. ctDNA detection sensitivity may be limited due to blood collection within two weeks of surgery and while the patient is on therapy. Signatera is a quantitative test and reports in units of mean tumor molecules per ml (MTM/mL), which is comprised of three measured components (plasma volume, cell free DNA (cfDNA) concentration, and Variant Allele Frequency (VAF)). The MTM/mL number will be qualified if any measured component falls outside the analytical measurement range for that component. The analytical sensitivity is 95% at the limit of detection (0.3 MTM/mL). Results obtained are specific to the assessed time point. A negative test result does not definitively indicate the absence of cancer. This test is not designed to detect or report germline variation, nor does it infer hereditary cancer risk for the patient. Each Signatera assay is designed to a single tumor for a given patient. At this time, multiple personalized Signatera assays cannot be developed for the same patient. This test is designed to detect ctDNA from the assayed tumor only; new primary tumors will not be detected. There is a low risk that a new primary may share a variant that could interfere with the Signatera test. Testing cannot be performed in patients who are , have a history of bone marrow transplant, or history of blood transfusion within three months. This test is expected to have limited sensitivity in cancer types such as GIST, renal cell carcinomas, primary brain tumors, and lymphoma due to limited ctDNA shed. 1 Hilario SV, Lamberto ELC, Guy NORMA, et al. Personalized circulating tumor DNA analysis as a predictive biomarker in solid tumor patients treated with pembrolizumab. Nature Cancer. 2020;1(9):873-881. 2 Ale MATUTE, Abundio Nina, et al., Circulating Tumor DNA in Stage III Colorectal Cancer, beyond Minimal Residual Disease Detection, toward Assessment of Adjuvant Therapy Efficacy and Clinical Behavior of Recurrences. Clin Cancer Res. 202; 28(3):507-517. Methodology FFPE samples are reviewed by a pathologist to assess tumor content and percent tumor nuclei. Tumor DNA is extracted using [employer]ah Mag-Bind FFPE DNA/RNA kit. Whole genomic DNA is isolated from peripheral blood using QIAamp DNA Blood MiniKit to provide DNA for germline sequencing. Circulating tumor DNA (ctDNA) is extracted from plasma derived from whole blood samples collected in cell-free DNA blood tubes ([employer]) using the QIAsymphony automated or manual extraction method (Qiagen). Whole-exome sequencing is performed on tumor and peripheral blood DNA using the [employer] whole-exome sequencing assay. Using a proprietary algorithm, putative, clonal variants present in the tumor but absent in the germline DNA are identified to design the customized multiplex PCR assay. The customized PCR assays are run to detect presence or absence of these variants within circulating plasma. A patient s plasma sample is considered ctDNA positive when at least two individual- specific tumor variants are detected. When fewer than two individual-specific tumor variants are observed, a negative result is issued. Pathology services and whole exome sequencing is performed at [facility]. (CLIA ID# [id number]) [address] [place] [address]. Disclaimer The extraction, library preparation, and sequencing for this test were performed by [facility] [address], [place] [address] (CLIA ID [id number]). The data analysis and reporting for this test were performed by [facility] [address], [place] [address] (CLIA ID [id number]). This test was developed and its performance characteristics determined by [facility]. The test has not been cleared or approved by the U.S. Food and Drug Administration (FDA). CAP accredited, ISO 18109 certified, and CLIA certified. Pathology services and whole exome sequencing for this test were performed by [facility]. (CLIA ID [id number]) [address] [place] [address]. 2020 [employer]. All Rights Reserved. 06/14/2025 us Unknown Unknown MD LAB BLOOD ORDERABLES Final Re sult [facility] [address] [phone] * Rad Onc Aria Session Summary (06/13/2025 10:36 AM EDT) Course ID C1 [facility] RADIATION ONCOLOGY Course Intent Curative [facility] ONCOLOG[facility] Course Start Date 04/13/2025 11:53 AM [facility] Course First Treatment Date 05/10/2025 10:55 AM [facility] Course Last Treatment Date 06/13/2025 10:34 AM [facility] Course Elapsed Days 34 [facility]ATION ONCOLOG[facility] Plan ID A1_LEarParoN k^A1_L Ear Parotid Neck [facility] Plan Name A1_L Ear Parotid Neck [facility] Plan Fractions Treated to Date 24 [facility]COLOG[facility] Plan Total Fractions Prescribed 25 [facility]ATION ONCOLOG[facility] Plan Prescribed Dose Per Fraction 2 Gy [facility]COL[facility] Plan Total Prescribed Dose 5000 cGy [facility]COLOG[facility] Plan Primary Reference Point A_LEarParoNk [facility]COLOG[facility] Reference Point ID A_LEarParoNk [facility]ATION ONCOLOG[facility] Reference Point Dosage Given to Date 48 Gy [facility]COLOG[facility] Reference Point Session Dosage Given 2 Gy [facility] RADIATION ONCOLOG[facility] 06/13/2025 10:3 6 AM EDT us Conversion Provider Not In Sys RADIATION ONCOLOG Y ORDERABLES Final Result [facility] * Rad Onc Aria Session Summary (06/12/2025 3:32 PM EDT) Course ID C1 [facility] RADIATION ONCOLOGY Course Intent Curative [facility] RAD[facility]ATION ONCOLOGY Course Start Date 04/13/2025 11:53 AM [facility] Course First Treatment Date 05/10/2025 10:55 AM [facility]COL[facility] Course Last Treatment Date 06/12/2025 3:30 PM [facility]COL[facility] Course Elapsed Days 33 [facility] RADIATION ONCOLOGY Plan ID A1_LEarParoN k^A1_L Ear Parotid Neck [facility] ONCOLOG[facility] Plan Name A1_L Ear Parotid Neck [facility] ONCOLOG[facility] Plan Fractions Treated to Date 23 [facility] RADIATION ONCOLOGY Plan Total Fractions Prescribed 25 [facility] RADIATION ONCOLOGY Plan Prescribed Dose Per Fraction 2 Gy [facility] RAD[facility]ATION ONCOLOGY Plan Total Prescribed Dose 5000 cGy [facility] RADIATION ONCOLOGY Plan Primary Reference Point A_LEarParoNk [facility] RADIATION ONCOLOGY Reference Point ID A_LEarParoNk [facility] RAD[facility]ATION ONCOLOGY Reference Point Dosage Given to Date 46 Gy [facility] RAD[facility]ATION ONCOLOG[facility] Reference Point Session Dosage Given 2 Gy [facility] RADIATION ONCOLOGY 06/12/2025 3:32 PM EDT us Conversion Provider Not In Sys RADIATION ONCOLOG Y ORDERABLES Final Result [facility]COL[facility] * Rad Onc Aria Session Summary (06/09/2025 10:56 AM EDT) Course ID C1 [facility] RADIATION ONCOLOGY Course Intent Curative [facility]ATION ONCOLOG[facility] Course Start Date 04/13/2025 11:53 AM [facility]COL[facility] Course First Treatment Date 05/10/2025 10:55 AM [facility]COL[facility] Course Last Treatment Date 06/09/2025 10:54 AM [facility]COL[facility] Course Elapsed Days 30 [facility] RADIATION ONCOLOGY Plan ID A1_LEarParoN k^A1_L Ear Parotid Neck [facility] RADIATION ONCOLOG[facility] Plan Name A1_L Ear Parotid Neck [facility]ATION ONCOLOG[facility] Plan Fractions Treated to Date 22 [facility] RADIATION ONCOLOGY Plan Total Fractions Prescribed 25 [facility] RADIATION ONCOLOGY Plan Prescribed Dose Per Fraction 2 Gy [facility] RAD[facility]ATION ONCOLOG[facility] Plan Total Prescribed Dose 5000 cGy [facility] RADIATION ONCOLOGY Plan Primary Reference Point A_LEarParoNk [facility] RADIATION ONCOLOGY Reference Point ID A_LEarParoNk [facility] RADIATION ONCOLOGY Reference Point Dosage Given to Date 44 Gy [facility] RADIATION ONCOLOG[facility] Reference Point Session Dosage Given 2 Gy [facility] RADIATION ONCOLOGY 06/09/2025 10:5 6 AM EDT us Conversion Provider Not In Sys RADIATION ONCOLOG Y ORDERABLES Final Result Performing Organization Address City/State/[facility] Co de Phone Number [facility] RADIATION ONCOLOG[facility] * Rad Onc Aria Session Summary (06/08/2025 11:01 AM EDT) Course ID C1 [facility] RADIATION ONCOLOGY Course Intent Curative [facility] RADIATION ONCOLOGY Course Start Date 04/13/2025 11:53 AM [facility]COLOG[facility] Course First Treatment Date 05/10/2025 10:55 AM [facility] ONCOLOG[facility] Course Last Treatment Date 06/08/2025 10:59 AM [facility] RADI[facility] ONCOLOGY Course Elapsed Days 29 [facility] RADIATION ONCOLOGY Plan ID A1_LEarParoN k^A1_L Ear Parotid Neck [facility] RADIATION ONCOLOGY Plan Name A1_L Ear Parotid Neck [facility]IATION ONCOLOG[facility] Plan Fractions Treated to Date 21 [facility] RADIATION ONCOLOGY Plan Total Fractions Prescribed 25 [facility] RADIATION ONCOLOGY Plan Prescribed Dose Per Fraction 2 Gy [facility] RADIATION ONCOLOGY Plan Total Prescribed Dose 5000 cGy [facility] RADIATION ONCOLOGY Plan Primary Reference Point A_LEarParoNk [facility] RADIATION ONCOLOGY Reference Point ID A_LEarParoNk [facility] RADIATION ONCOLOGY Reference Point Dosage Given to Date 42 Gy [facility] RADIATION ONCOLOGY Reference Point Session Dosage Given 2 Gy [facility] RADIATION ONCOLOGY 06/08/2025 11:0 1 AM EDT us Conversion Provider Not In Sys RADIATION ONCOLOG Y ORDERABLES Final Result [facility] RADIATION ONCOLOG[facility] * Rad Onc Aria Session Summary (06/07/2025 11:00 AM EDT) Course ID C1 [facility] RADIATION ONCOLOGY Course Intent Curative [facility] RADIATION ONCOLOGY Course Start Date 04/13/2025 11:53 AM [facility] RAD[facility] ONCOLOGY Course First Treatment Date 05/10/2025 10:55 AM [facility] RADIATION ONCOLOGY Course Last Treatment Date 06/07/2025 10:59 AM [facility] RADIATION ONCOLOGY Course Elapsed Days 28 [facility] RADIATION ONCOLOGY Plan ID A1_LEarParoN k^A1_L Ear Parotid Neck [facility] RADIATION ONCOLOGY Plan Name A1_L Ear Parotid Neck [facility] RADIATION ONCOLOGY Plan Fractions Treated to Date 20 [facility] RADIATION ONCOLOGY Plan Total Fractions Prescribed 25 [facility] RADIATION ONCOLOGY Plan Prescribed Dose Per Fraction 2 Gy [facility] RADIATION ONCOLOGY Plan Total Prescribed Dose 5000 cGy [facility] RADIATION ONCOLOGY Plan Primary Reference Point A_LEarParoNk [facility] RADIATION ONCOLOGY Reference Point ID A_LEarParoNk [facility] RADIATION ONCOLOGY Reference Point Dosage Given to Date 40 Gy [facility] RADIATION ONCOLOGY Reference Point Session Dosage Given 2 Gy [facility] RADIATION ONCOLOGY 06/07/2025 11:0 0 AM EDT us Conversion Provider Not In Sys RADIATION ONCOLOG Y ORDERABLES Final Result [facility] RADIATION ONCOLOGY * Rad Onc Aria Session Summary (06/06/2025 11:30 AM EDT) Course ID C1 [facility] RADIATION ONCOLOGY Course Intent Curative [facility] RADIATION ONCOLOGY Course Start Date 04/13/2025 11:53 AM [facility] RADIATION ONCOLOGY Course First Treatment Date 05/10/2025 10:55 AM [facility] RADIATION ONCOLOGY Course Last Treatment Date 06/06/2025 11:28 AM [facility] RADIATION ONCOLOGY Course Elapsed Days 27 [facility] RADIATION ONCOLOGY Plan ID A1_LEarParoN k^A1_L Ear Parotid Neck [facility] RADIATION ONCOLOGY Plan Name A1_L Ear Parotid Neck [facility] RADIATION ONCOLOGY Plan Fractions Treated to Date 19 [facility] RADIATION ONCOLOGY Plan Total Fractions Prescribed 25 [facility] RADIATION ONCOLOGY Plan Prescribed Dose Per Fraction 2 Gy [facility] RADIATION ONCOLOGY Plan Total Prescribed Dose 5000 cGy [facility] RADIATION ONCOLOGY Plan Primary Reference Point A_LEarParoNk [facility] RADIATION ONCOLOGY Reference Point ID A_LEarParoNk [facility] RADIATION ONCOLOGY Reference Point Dosage Given to Date 38 Gy [facility] RADIATION ONCOLOGY Reference Point Session Dosage Given 2 Gy [facility] RADIATION ONCOLOGY 06/06/2025 11:3 0 AM EDT us Conversion Provider Not In Sys RADIATION ONCOLOG Y ORDERABLES Final Result [facility] RADIATION ONCOLOGY * Rad Onc Aria Session Summary (06/05/2025 4:22 PM EDT) Course ID C1 [facility] RADIATION ONCOLOGY Course Intent Curative [facility] RADIATION ONCOLOGY Course Start Date 04/13/2025 11:53 AM [facility] RADIATION ONCOLOGY Course First Treatment Date 05/10/2025 10:55 AM [facility] RADIATION ONCOLOGY Course Last Treatment Date 06/05/2025 4:21 PM [facility] RADIATION ONCOLOGY Course Elapsed Days 26 [facility] RADIATION ONCOLOGY Plan ID A1_LEarParoN k^A1_L Ear Parotid Neck [facility] RADIATION ONCOLOGY Plan Name A1_L Ear Parotid Neck [facility] RADIATION ONCOLOGY Plan Fractions Treated to Date 18 [facility] RADIATION ONCOLOGY Plan Total Fractions Prescribed 25 [facility] RADIATION ONCOLOGY Plan Prescribed Dose Per Fraction 2 Gy [facility] RADIATION ONCOLOGY Plan Total Prescribed Dose 5000 cGy [facility] RADIATION ONCOLOGY Plan Primary Reference Point A_LEarParoNk [facility] RADIATION ONCOLOGY Reference Point ID A_LEarParoNk [facility] RADIATION ONCOLOGY Reference Point Dosage Given to Date 36 Gy [facility] RADIATION ONCOLOGY Reference Point Session Dosage Given 2 Gy [facility] RADIATION ONCOLOGY 06/05/2025 4:22 PM EDT us Conversion Provider Not In Sys RADIATION ONCOLOG Y ORDERABLES Final Result [facility] RADIATION ONCOLOGY * Rad Onc Aria Session Summary (06/02/2025 12:00 PM EDT) Course ID C1 [facility] RADIATION ONCOLOGY Course Intent Curative [facility] RADIATION ONCOLOGY Course Start Date 04/13/2025 11:53 AM [facility] RADIATION ONCOLOGY Course First Treatment Date 05/10/2025 10:55 AM [facility] RADIATION ONCOLOGY Course Last Treatment Date 06/02/2025 11:58 AM [facility] RADIATION ONCOLOGY Course Elapsed Days 23 [facility] RADIATION ONCOLOGY Plan ID A1_LEarParoN k^A1_L Ear Parotid Neck [facility] RADIATION ONCOLOGY Plan Name A1_L Ear Parotid Neck [facility] RADIATION ONCOLOGY Plan Fractions Treated to Date 17 [facility] RADIATION ONCOLOGY Plan Total Fractions Prescribed 25 [facility] RADIATION ONCOLOGY Plan Prescribed Dose Per Fraction 2 Gy [facility] RADIATION ONCOLOGY Plan Total Prescribed Dose 5000 cGy [facility] RADIATION ONCOLOGY Plan Primary Reference Point A_LEarParoNk [facility] RADIATION ONCOLOGY Reference Point ID A_LEarParoNk [facility] RADIATION ONCOLOGY Reference Point Dosage Given to Date 34 Gy [facility] RADIATION ONCOLOGY Reference Point Session Dosage Given 2 Gy [facility] RADIATION ONCOLOGY 06/02/2025 12:0 0 PM EDT us Conversion Provider Not In Sys RADIATION ONCOLOG Y ORDERABLES Final Result [facility] RADIATION ONCOLOGY * Rad Onc Aria Session Summary (06/01/2025 12:19 PM EDT) Course ID C1 [facility] RADIATION ONCOLOGY Course Intent Curative [facility] RADIATION ONCOLOGY Course Start Date 04/13/2025 11:53 AM [facility] RADIATION ONCOLOGY Course First Treatment Date 05/10/2025 10:55 AM [facility] RADIATION ONCOLOGY Course Last Treatment Date 06/01/2025 12:17 PM [facility] RADIATION ONCOLOGY Course Elapsed Days 22 [facility] RADIATION ONCOLOGY Plan ID A1_LEarParoN k^A1_L Ear Parotid Neck [facility] RADIATION ONCOLOGY Plan Name A1_L Ear Parotid Neck [facility] RADIATION ONCOLOGY Plan Fractions Treated to Date 16 [facility] RADIATION ONCOLOGY Plan Total Fractions Prescribed 25 [facility] RADIATION ONCOLOGY Plan Prescribed Dose Per Fraction 2 Gy [facility] RADIATION ONCOLOGY Plan Total Prescribed Dose 5000 cGy [facility] RADIATION ONCOLOGY Plan Primary Reference Point A_LEarParoNk [facility]A RADIATION ONCOLOGY Reference Point ID A_LEarParoNk ARIA RADIATION ONCOLOGY Reference Point Dosage Given to Date 32 Gy [facility] RADIATION ONCOLOGY Reference Point Session Dosage Given 2 Gy [facility] RADIATION ONCOLOGY 06/01/2025 12:1 9 PM EDT us Conversion Provider Not In Sys RADIATION ONCOLOG Y ORDERABLES Final Result [facility]A RADIATION ONCOLOGY * Rad Onc Aria Session Summary (05/31/2025 2:02 PM EDT) Course ID C1 [facility]A RADIATION ONCOLOGY Course Intent Curative [facility]A RADIATION ONCOLOGY Course Start Date 04/13/2025 11:53 AM [facility] RADIATION ONCOLOGY Course First Treatment Date 05/10/2025 10:55 AM [facility] RADIATION ONCOLOGY Course Last Treatment Date 05/31/2025 2:01 PM [facility] RADIATION ONCOLOGY Course Elapsed Days 21 [facility] RADIATION ONCOLOGY Plan ID A1_LEarParoN k^A1_L Ear Parotid Neck [facility] RADIATION ONCOLOGY Plan Name A1_L Ear Parotid Neck [facility] RADIATION ONCOLOGY Plan Fractions Treated to Date 15 [facility] RADIATION ONCOLOGY Plan Total Fractions Prescribed 25 [facility] RADIATION ONCOLOGY Plan Prescribed Dose Per Fraction 2 Gy [facility] RADIATION ONCOLOGY Plan Total Prescribed Dose 5000 cGy [facility] RADIATION ONCOLOGY Plan Primary Reference Point A_LEarParoNk [facility]A RADIATION ONCOLOGY Reference Point ID A_LEarParoNk [facility]A RADIATION ONCOLOGY Reference Point Dosage Given to Date 30 Gy [facility] RADIATION ONCOLOGY Reference Point Session Dosage Given 2 Gy [facility] RADIATION ONCOLOGY 05/31/2025 2:02 PM EDT us Conversion Provider Not In Sys RADIATION ONCOLOG Y ORDERABLES Final Result [facility] RADIATION ONCOLOGY * XR LUMBOSACRAL SPINE 4 OR MORE VIEWS (05/31/2025 8:13 AM EDT) Anatomical Region Laterality Modality L-spine Computed Radiogr aphy 05/31/2025 10:2 7 AM EDT Impressions 05/31/2025 10:31 AM EDT Mild multilevel degenerative disc disease Narrative 05/31/2025 10:31 AM EDT XR LUMBOSACRAL SPINE 4 OR MORE VIEWS Referring clinician's provided indication for this examination in Epic: Pain COMPARISON: None FINDINGS: Normal alignment. Normal vertebral body heights. Mild disc space narrowing at T12-L1 and L1-L2. Mild multilevel endplate osteophyte formation. No evidence of dynamic instability with flexion and extension. IVC filter projects over the anterior paraspinal soft tissues at the L3 level. Mild degenerative changes in the sacroiliac joints. Procedure Note Johan Elise MD - 05/31/2025 XR LUMBOSACRAL SPINE 4 OR MORE VIEWS Referring clinician's provided indication for this examination in Epic:Pain COMPARISON: None FINDINGS: Normal alignment. Normal vertebral body heights. Mild disc space narrowingat T12-L1 and L1-L2. Mild multilevel endplate osteophyte formation. Noevidence of dynamic instability with flexion and extension. IVC filterprojects over the anterior paraspinal soft tissues at the L3 level. Milddegenerative changes in the sacroiliac joints. IMPRESSION: Mild multilevel degenerative disc disease us Keiht Bolton MD IMG XR SPINE Final Result * Rad Onc Aria Session Summary (05/30/2025 2:05 PM EDT) Course ID C1 [facility] RADIATION ONCOLOGY Course Intent Curative [facility] Course Start Date 04/13/2025 11:53 AM [facility] Course First Treatment Date 05/10/2025 10:55 AM [facility] Course Last Treatment Date 05/30/2025 2:04 PM [facility] Course Elapsed Days 20 [facility]COLOG[facility] Plan ID A1_SophiaoN k^A1_L Ear Parotid Neck [facility] ONCOLOG[facility] Plan Name A1_L Ear Parotid Neck [facility] Plan Fractions Treated to Date 14 [facility]IATION ONCOLOGY Plan Total Fractions Prescribed 25 [facility] RADIATION ONCOLOGY Plan Prescribed Dose Per Fraction 2 Gy [facility] RADIATION ONCOLOGY Plan Total Prescribed Dose 5000 cGy [facility] RADIATION ONCOLOGY Plan Primary Reference Point A_LEarParoNk [facility] RADIATION ONCOLOGY Reference Point ID A_LEarParoNk [facility] RADIATION ONCOLOGY Reference Point Dosage Given to Date 28 Gy [facility] RADIATION ONCOLOGY Reference Point Session Dosage Given 2 Gy [facility] RADIATION ONCOLOGY 05/30/2025 2:05 PM EDT us Conversion Provider Not In Sys RADIATION ONCOLOG Y ORDERABLES Final Result Performing Organization Address City/[facility]/ZIP Co de Phone Number [facility] RADIATION ONCOLOGY * Rapid Heme Panel (05/30/2025 9:39 AM EDT) RAPID HEME PANEL BLOOD SEE PATHOLOGY REPORT [facility] LIC# [id number] Blood 05/30/2025 9:39 AM EDT 05/30/2025 9:53 AM EDT us Kelli De La Garza M.D. Leukemia Mike Self MD LAB BLO OD ORDERABLES Final Result Performing Organization Address [facility] Co de Phone Number [facility] LIC# [id number] [address] [place] [address] * Hold Specimen In Blood Bank (05/30/2025 9:39 AM EDT) Expiration Date of Sample 11:59 PM 05/30/2025 9:57 AM EDT [facility] Resulting Agency [facility] Blood 05/30/2025 9:39 AM EDT 05/30/2025 9:54 AM EDT us Kelli De La Garza M.D. Leukemia Mike Self MD BLOOD B ANK TEST ORDERABLES Final Result Performing Organization Address [facility] Co de Phone Number [facility] [address] [place] [address] * (ABNORMAL) Reticulocytes (05/30/2025 9:39 AM EDT) RETIC (%) 2.3 0.7 - 2.5 % [facility] LIC# [id number] RETIC (ABSOLUTE) 0.0827 0.0315 - 0.1600 M/uL [facility] LIC# [id number] RETIC HGB EQUIV 27.5(L) 30.2 - 35.6 pg [facility] LIC# [id number] Blood 05/30/2025 9:39 AM EDT 05/30/2025 9:49 AM EDT us Kelli De La Garza M.D. Leukemia Mike Self MD LAB BLO OD ORDERABLES Final Result Performing Organization Address [facility] de Phone Number [facility] LIC# [id number] [address] [place] [address] * (ABNORMAL) LDH (05/30/2025 9:39 AM EDT) LDH 643(H) 135 - 225 U/L [facility] LIC# [id number] Blood 05/30/2025 9:39 AM EDT 05/30/2025 9:49 AM EDT us Kelli De La Garza M.D. Leukemia Mike Self MD LAB BLO OD ORDERABLES Final Result Performing Organization Address [facility] de Phone Number [facility] LIC# [id number] [address] [place] [address] * Erythropoietin level (05/30/2025 9:39 AM EDT) ERYTHROPOIETIN 7.0 2.6 - 18.5 mIU/mL [facility] Blood 05/30/2025 9:39 AM EDT 05/30/2025 9:49 AM EDT Kelli De La Garza M.D. Leukemia Mike Self MD LAB BLO OD ORDERABLES Final Result Performing Organization Address [facility] de Phone Number [facility] [address] [place] [address] * (ABNORMAL) Uric acid (05/30/2025 9:39 AM EDT) URIC ACID 7.9(H) 3.4 - 7.0 mg/dL [facility] LIC# [id number] Blood 05/30/2025 9:39 AM EDT 05/30/2025 9:49 AM EDT Kelli De La Garza M.D. Leukemia Mike Self MD LAB BLO OD ORDERABLES Final Result Performing Organization Address City/[facility]/ZIP Co de Phone Number [facility] LIC# [id number] [address] [place] [address] * Phosphorus (05/30/2025 9:39 AM EDT) Pathologist [facility] [place] PHOSPHORUS 4.4 2.5 - 4.5 mg/dL [facility] LIC# [id number] Blood 05/30/2025 9:39 AM EDT 05/30/2025 9:49 AM EDT Kelli De La Garza M.D. Leukemia Mike Self MD LAB BLO OD ORDERABLES Final Result Performing Organization Address [facility] Co de Phone Number [facility] LIC# [id number] [address] [place] [address] * Magnesium (05/30/2025 9:39 AM EDT) Pathologist [facility] [place] MAGNESIUM 1.7 1.7 - 2.6 mg/dL [facility] LIC# [id number] Blood 05/30/2025 9:39 AM EDT 05/30/2025 9:49 AM EDT Kelli De La Garza M.D. Leukemia Mike Self MD LAB BLO OD ORDERABLES Final Result Performing Organization Address [facility] Co de Phone Number [facility] LIC# [id number] [address] [place] [address] * Haptoglobin (05/30/2025 9:39 AM EDT) HAPTOGLOBIN 59 30 - 200 mg/dL [facility] LIC# [id number] Blood 05/30/2025 9:39 AM EDT 05/30/2025 9:49 AM EDT Kelli De La Garza M.D. Leukemia Mike Self MD LAB BLO OD ORDERABLES Final Result Performing Organization Address City/[facility] Co de Phone Number [facility] LIC# [id number] [address] [place] [address] * Folate (05/30/2025 9:39 AM EDT) FOLIC ACID >20.0 >4.7 ng/mL [facility] LIC# [id number] Blood 05/30/2025 9:39 AM EDT 05/30/2025 9:49 AM EDT Kelli De La Garza M.D. Leukemia Mike Self MD LAB BLO OD ORDERABLES Final Result Performing Organization Address [facility] Co de Phone Number [facility] LIC# [id number] [address] [place], [place] [address] * Ferritin (05/30/2025 9:39 AM EDT) FERRITIN 267 30 - 400 ug/L [facility] LIC# [id number] Blood 05/30/2025 9:39 AM EDT 05/30/2025 9:49 AM EDT Kelli De La Garza M.D. Leukemia Mike Self MD LAB BLO OD ORDERABLES Final Result Performing Organization Address [facility] Co de Phone Number [facility] LIC# [id number] [address] [place] [address] * Vitamin B12 (05/30/2025 9:39 AM EDT) VITAMIN B12 1,239 232 - 1,245 pg/mL [facility] LIC# [id number] Blood 05/30/2025 9:39 AM EDT 05/30/2025 9:49 AM EDT Kelli De La Garza M.D. Leukemia Df Sushma BOCANEGRA LAB BLO OD ORDERABLES Final Result [facility]# [id number] [address] [place] [address] * Rapid Heme Panel (05/30/2025 12:00 AM EDT) Results Sample Type: Molec D x Blood ==== RAPID HEME PANEL ==== QC: PASS Pathogenic Single Nucleotide Variants and Small Insertions/Deletions* IDH1 c.395G>A (p.R132H) 0.4% VAF (1249x consensus coverage) # IDH2 c.419G>A (p.R140Q) 0.6% VAF (1229x consensus coverage) # JAK2 c.1849G>T (p.V617F) 83.6% VAF (805x consensus coverage) NFE2 c.194dupA (p.Y65*) 12.8% VAF (1634x consensus coverage) TET2 c.2815C>T (p.Q939*) 1.6% VAF (1724x consensus coverage) # ZRSR2 c.772-2A>G (splice site) 7.3% VAF (358x consensus coverage) ZRSR2 c.505C>T (p.R169*) 2% VAF (404x consensus coverage) # # These variants are identified at variant allele fractions lower than the validated threshold for calling a new variant and should be viewed with caution. However, they are listed here to enable future comparison. Consider confirmatory testing. *This test is designed for somatic analysis of variants and may provide information about the germline. It cannot distinguish between somatic and germline variants. Germline testing should be ordered separately, as indicated. Copy Number Analysis*: Read count analysis shows: CN CHRISTINE JAK2 (on 9p); IKZF1 deletion: not detected ERG deletion: not detected KMT2A(MLL)-PTD: not detected *This test assesses only autosomal chromosomal copy number changes. FLT3-ITD Analysis None Detected. This assay has been validated to detect FLT3-ITDs with insert size up to 180 bp. AR (allelic ratio) is approximated as Mutant/Wildtype or Sum(Mutants)/Wildtype and is calculated from the variant allele fraction by the following formula: AR=FLT3-ITD alleles / wild-type alleles. However, the AR may be underestimated for certain ITDs by the technical limitations of the assay and should be considered semi-quantitative only for these cases. The validated limit of ITD detection is 0.01 AR, but lower ARs may be called at the pathologist discretion as clinically indicated. Values <0.01 should be viewed with caution. Other Variants of Unknown Significance (VUS)*: None Detected. *This test is designed for somatic analysis of variants and may provide information about the germline. It cannot distinguish between somatic and germline variants. Germline testing should be ordered separately, as indicated. Some variants on the VUS list may later found to be pathogenic and some may be of germline in nature. The following recurrently mutated codons have wild type sequences only: ABL1 315 BRAF 594 BRAF 595 BRAF 596 BRAF 597 BRAF 600 BRAF 601 CBL 371 CBL 384 CBL 404 CSF3R 615 CSF3R 617 CSF3R 618 DDX41 525 DNMT3A 882 ETNK1 244 FLT3 835 GNAS 201 GNB1 57 IDH2 172 KIT 816 KIT 822 KIT 823 KRAS 12 KRAS 13 KRAS 61 KRAS 146 MAP2K1 57 MAP2K1 121 MPL 505 MPL 515 MYD88 265 NOTCH1 2514 NPM1 287 NPM1 288 NRAS 12 NRAS 13 NRAS 61 NRAS 146 PTPN11 60 PTPN11 61 PTPN11 71 PTPN11 72 PTPN11 73 PTPN11 76 SETBP1 868 SF3B1 625 SF3B1 626 SF3B1 662 SF3B1 666 SF3B1 700 SF3B1 742 SRSF2 95 STAT3 640 STAT3 661 U2AF1 34 U2AF1 156 U2AF1 157 XPO1 571 The following recurrently mutated codons have inadequate coverage(<100X): KRAS 12 KRAS 13 [facility] Results\Inte rpretation QC details*: MTC: 559.6226 YG828w: 94.4% *MTC > 325 and QP417q > 85% is considered as good quality IDH1 p.R132H chr2 :[id number] MISSENSE 2q34: Isocitrate dehydrogenase 1 (IDH1) encodes a cytoplasmic enzyme that catalyzes the conversion of isocitrate to a-ketoglutarate. Mutant IDH enzymes have neomorphic activity, converting a-ketoglutarate to 2-hydroxyglutarate, whose effects include inhibition of TET2. IDH1 is recurrently mutated in AML, and less frequent in MDS and MPN. Pathogenic mutations are missense mutations at the hotspot IDH1 p.R132. FDA-approved IDH1 inhibitors are available, although resistance mutations have been described. (PMIDs: 87619259, 31552997) IDH2 p.R140Q chr15:99005190 MISSENSE 15q26.1: Isocitrate dehydrogenase 2 (IDH2) encodes for a mitochondrial enzyme that catalyzes the oxidative decarboxylation of isocitrate to a-ketoglutarate. Mutant IDH enzymes have neomorphic activity, converting a-ketoglutarate to 2-hydroxyglutarate, whose effects include inhibition of TET2. IDH2 is recurrently mutated in AML, and less frequent in MDS and MPN. IDH2 mutations are also recurrent in AITL. Pathogenic mutations are missense mutations at the hotspots IDH2 p.R140 and p.R172. FDA-approved IDH2 inhibitors are available, although resistance mutations have been described. (PMIDs: 88096261, 93663156) JAK2 p.V617F chr9 :0967360 MISSENSE 9p24.1: JAK2 encodes a non-receptor tyrosine kinase that initiates cytokine mediated signaling. JAK2 mutations are recurrent in myeloproliferative neoplasms and may also occur in lymphoid and myeloid leukemias. The classic JAK2 p.V617F mutation is observed in the vast majority of [place] chromosome-negative MPN. A small subset of polycythemia vera patients harbor indel mutations within exon 12 of JAK2 or other rare non-canonical mutations. Homozygous JAK2 p.V617F frequently occur through copy number neutral loss of heterozygosity at 9p. Rare gene fusions involving JAK2 have been described in hematologic malignancies. Ruxolitinib is an FDA-approved JAK1/2 inhibitor for patients with myelofibrosis regardless of driver license reviewing officer mutation. Germline crbf-tk-zchsvurp mutations in JAK2 (excluding p.V617F) have been described in familial MPN. (PMIDs: 88639430, 06156930, 61286034, 31515738) NFE2 p.Y65* chr12:38623510 FRAMESHIFT 12p13.13: NFE2 encodes a resource management specialist factor essential for erythroid differentiation. Overexpression of NFE2 is observed in polycythemia vera and myelofibrosis and contributes to disease progression. Truncating mutations in NFE2 have been observed rarely in PV and MF patients. The truncated mutant NFE2 enhances wild-type NFE2 mRNA expression, protein stability, and activity, thereby augmenting the cytokine-independent proliferative advantage of the mutant MPN clone. (PMIDs: 34454913) TET2 p.Q939* chr4 :[id number] NONSENSE 4q24: TET2 (Ten eleven translocation 2) encodes an alpha ketoglutarate-depende nt dioxygenase that converts 5-methylcytosine (5-MC) to 5-hydroxymethylcytosi ne (5-hMC) and promotes DNA methylation. TET2 mutations are recurrent in clonal hematopoiesis, MDS, MPN, MDS/MPN, AML, AITL, PTCL, and DLBCL. Pathogenic nonsense, frameshift, and splice site mutations are found throughout the coding region and cause loss of function. Missense variants are also found in the catalytic cysteine-rich and double-stranded beta-helix domains. TET2 mutations can be found without overt disease and, in the context of known disease, can persist in morphologic remission. (PMIDs: 08729000, 68519999, 06319310) ZRSR2 chrX :27211333 3' SPLICE, p.R169* chrX :10162710 NONSENSE Xp22.2: ZRSR2 encodes a component of the U12 spliceosome. ZRSR2 is recurrently mutated in myeloid neoplasms (MDS, AML, and MPNs). Pathogenic nonsense, frameshift, and splice site mutations are found throughout the coding region and cause loss of function. Missense mutations are also observed. Loss of function in ZRSR2 is thought to involve retention of D85-qrfe exons, leading to altered HSC proliferation and differentiation. (PMIDs: 54944198, 15647462, 76791782, 09964352) Test Information: The [facility] Rapid Heme Panel (RHP) Assay is a next generation sequencing assay based on the [employer] kit from [employer]. A detailed description of the assay is available upon request from [facility], [facility]. Amplification method: [place]ara Direct(R), [employer] Assay Version: Rapid Heme Panel V3.0 Genes: Total 88,(183 KB) whole coding sequence for most genes Sequencing platform: Illumina NextInside Socialq 550Dx, 150bp paired-end reads Raw data processing: BWA Mem (v0.7.17) ERICA Correction: Fgbio (v0.4.0) Variant Caller: Vardict (v1.6.0) CNV Caller: RobustCNV (internally developed) FLT3-ITD: TsaiITD (internally developed) Data File formats: BAM, VCF Genome version: hg19 Metrics: GATK (v.4.0.5.0) and Fgbio (v0.4.0) Variant Annotation: Variant Effect Predictor (v79) Pipeline cutoff: 3 Variant Reads and 1% variant allele frequency. Analytical sensitivity: Varies from locus to locus, but is estimated to be 3.0% at 325x consensus coverage The test performed at [facility] were developed and their performance characteristics determined by the Molecular Diagnostic Laboratory in the Department of Pathology at [facility]. They have not been cleared or approved by the U.S. Food and Drug Administration (FDA). The FDA has determined that such clearance or approval is not necessary. The following regions have insufficient number of sequence reads (<100X) for evaluation. Gene Exon Start End Coverage BRCC3 e2 125479032 724382325 22.053340 CREBBP e01 6373765 2336082 33.035594 CUX1 e01 352851569 237300216 32.23654 IDH2 e1 56115248 68915970 33.577739 KMT2A e1 447578226 552483429 39.461191 NF1 e20 54600788 18091147 37.256055 TERT e01 7307010 9661695 17.631135 Targeted Gene/Exon List (genomic coordinates available upon request): The [facility] Rapid Heme Panel (RHP) Assay is a next generation sequencing assay based on the [employer] Techn[employer] kit from [employer]. A detailed description of the assay is available upon request from [facility], [facility]. ABL1 [id number] 5 alt e1 ABL1 KRLB38304316704 5 e1-e10 ASXL1 HDBH58798219674 4 e11-e12 PARMINDER OQQO25585330392 4 e2-e63 ATRX DBAZ20692939813 5 e1-e35 BCOR PYSR00780912798 4 e2-e15 BCORL1 WECL79293272377 1 e1-e12 BCORL1 [id number] 1 alt e8 BRAF FNMS85415932054 6 e12-e16 BRCC3 PFRG55729505880 1 e1-e11 BTK CPBY22932564336 7 e11,e15-e16 CALR EEDZ56129486894 5 e9 CBL PLCF45337900292 4 e7-e9 CCND1 LWZN17410937899 2 e1-e5 CD79B LGRK01278750989 3 e5-e6 CDKN2A ETLZ69036198008 1 e1-e4 CDKN2A NM_[id number] 1 alt e1 CDKN2B SUZK87439228977 6 e1-e2 CEBPA HBLN64969582914 2 e1 CREBBP OWUL90137531990 5 e1-e31 CRLF2 TQLK45077769028 3 e5 CSF3R GBHZ31413253604 1 e14-e17 HSKQ0D2 ERTL24837564194 2 e1-e10 BOWF1F1 QENO29886148280 2 alt e5 CTCF JSUE37873818321 4 e3-e12 CUX1 RJPQ74390654094 7 e1-e24 CUX1 XVMF83852437491 7 alt e1,e15-e23 CXCR4 CSYR16493677608 3 e3 DDX41 URNO46642144926 1 e1-e17 DKC1 BIDY21925399423 5 e1-e15 DNMT3A UMCH50132319462 3 alt e1-e2 DNMT3A UPQB85465110684 3 e2-e23 DNMT3A [id number] 3 alt e1 EP300 ZKSN54471608056 7 e1-e31 ERG XIGZ08135866128 2 alt e1 ERG CVPH68430934000 2 e3-e12 ERG [id number] 2 alt e12 ETNK1 ZCMA52085547863 4 e3 ETV6 EATZ63060618597 4 e1-e8 EZH2 BKYD48754161211 2 e2-e20 FBXW7 YEKT68816313138 4 e10-e14 FLT3 RWIH90541063531 7 e14,e16-e17,e20 GATA1 AQLS26419765685 3 e2-e6 GATA2 BZFK69162061119 2 e2-e6 GNAS QTOW44157845971 3 e8-e9 GNB1 OSYM78137792083 4 e5-e6 IDH1 KIKP45575128385 2 e3-e10 IDH2 XPJI82128208104 3 e1-e11 IKZF1 TOCK76959786980 3 e2-e8 IKZF1 BQAO42346253503 3 alt e4 IKZF1 UGTQ31139444199 3 alt e5 IL7R AOLH33887233014 3 e5-e7 JAK1 KCLQ67917384906 4 e10-e25 JAK2 WGNF36773514235 3 e12-e20 JAK3 ANWA63395999551 1 e16-e24 KIT CKOT96601832781 5 e8-e11,e17 KRAS TOJZ94146992751 3 e2-e6 KRAS NOGW96006507896 3 alt e5 KMT2A SWZI16985552100 1 e1-e13,e24-e26 MAP2K1 UDJW73077443828 5 e2-e3,e6 e28-e30 MPL VKRW68529279577 3 e4,e10 NF1 PMGS74926604042 3 e1-e57 NF1 WLFY59242811409 3 alt e31 MYC GUNS81447227229 2 e1-e3 MYD88 OIJB82490912167 3 e5 NOTCH2 KICT02819799006 2 e24-e28,e34 NFE2 CWLJ41384192903 1 e3-e4 NOTCH1 MBFK00569529668 6 e24-e28,e34 NSD2 KJSG09517653394 3 e20-e21 NPM1 AZIS88876679555 5 e10-e11 NRAS DIBO87094391770 4 e2-e5 PIGA YFST14343986200 4 e1-e62 NT5C2 LOXN39256473978 5 e10-e18 PHF6 TLZA84418936233 1 e1-e9 PRPF8 BDXT74226233668 6 e25-e34 PLCG2 CUQB10494689212 3 e18-e19,e23 e26,e29 PPM1D IZHO70272324315 3 e6 RAD21 FOMR56442259458 2 e2-e14 PTEN IPYM93549788147 3 e1-e9 PTPN11 MZSM22314779280 2 e1-e15 SBDS KIJH72713306180 2 e1-e5 RIT1 ZORZ75224292619 3 alt e1 RIT1 QQWD01784632335 3 e2-e6 RUNX1 GSLX57683811948 1 e2-e9 RUNX1 TOVE58090484036 1 alt e5 SF3B1 JEFU33713028473 6 e12-e18 SETBP1 DWWZ81204211756 5 e4 SETD2 KURC98817932969 3 e1-e21 SMC3 WDYD93972142182 4 e1-e29 SH2B3 EFBH72586242423 2 alt e1 SH2B3 RIME59920090140 2 e2-e8 SMC1A IDUG18780315626 4 e1-e25 SMC1A [id number] 4 alt e2 STAT3 TPJR07481485360 5 e2-e24 SRSF2 CQJU78803282647 5 e1 STAG2 JMSA12392026919 9 e3-e35 TERT HCPE76381555895 5 e1-e16 STAT5B VYDA00326788376 3 e13-e19 TERC UBAP65307540729 1 e1 U2AF1 GQQU07430545476 4 e2,e6 TET2 BFAJ37314953257 4 e3-e11 TP53 JMLQ27680476654 4 e2-e11 TP53 IIHJ43581638031 4 alt e10 ZRSR2 BOCR42373383106 7 e1-e11 WT1 NZVU22563658997 3 alt e1 WT1 EZQF69762728739 3 e1-e10 XPO1 NTTL29733462217 2 e15-e16 The test performed at [facility] were developed and their performance characteristics determined by the Molecular Diagnostic Laboratory in the Department of Pathology at [facility]. They have not been cleared or approved by the U.S. Food and Drug Administration (FDA). The FDA has determined that such clearance or approval is not necessary. By his/her signature below, the senior physician certifies that he/she personally reviewed all the laboratory data of the described specimen(s) and rendered or confirmed the diagnosis(es) related thereto. [facility] Procedure Comments ProcRapid Heme Panel - [facility] RHP Professional Interpretation RHP - MPN/Leukocytosis/Thro mbo/PV [facility] Report Accession No: [id number] Date: 1950 Sex: Male [facility] Diagn[facility] [place] [address] CLIA License #: [id number] Ornament Stitcher: Dr. Rubi Lewis Physician: KELLI SELF MD Specimen Submitted: Molecular Procedure Date: 05/30/2025 Pathologist: Gabriel Antoine M.D., Ph.D. CLINICAL DATA: Clinical History: None given. Clinical Diagnosis: Polycythemia vera RESULT: Sample Type: Molec Dx Blood ==== RAPID HEME PANEL ==== QC: PASS Pathogenic Single Nucleotide Variants and Small Insertions/Deletions* IDH1 c.395G>A (p.R132H) 0.4% VAF (1249x consensus coverage) # IDH2 c.419G>A (p.R140Q) 0.6% VAF (1229x consensus coverage) # JAK2 c.1849G>T (p.V617F) 83.6% VAF (805x consensus coverage) NFE2 c.194dupA (p.Y65*) 12.8% VAF (1634x consensus coverage) TET2 c.2815C>T (p.Q939*) 1.6% VAF (1724x consensus coverage) # ZRSR2 c.772-2A>G (splice site) 7.3% VAF (358x consensus coverage) ZRSR2 c.505C>T (p.R169*) 2% VAF (404x consensus coverage) # # These variants are identified at variant allele fractions lower than the validated threshold for calling a new variant and should be viewed with caution. However, they are listed here to enable future comparison. Consider confirmatory testing. *This test is designed for somatic analysis of variants and may provide information about the germline. It cannot distinguish between somatic and germline variants. Germline testing should be ordered separately, as indicated. Copy Number Analysis*: Read count analysis shows: CN CHRISTINE JAK2 (on 9p); IKZF1 deletion: not detected ERG deletion: not detected KMT2A(MLL)-PTD: not detected *This test assesses only autosomal chromosomal copy number changes. FLT3-ITD Analysis None Detected. This assay has been validated to detect FLT3-ITDs with insert size up to 180 bp. AR (allelic ratio) is approximated as Mutant/Wildtype or Sum(Mutants)/Wildtype and is calculated from the variant allele fraction by the following formula: AR=FLT3-ITD alleles / wild-type alleles. However, the AR may be underestimated for certain ITDs by the technical limitations of the assay and should be considered semi-quantitative only for these cases. The validated limit of ITD detection is 0.01 AR, but lower ARs may be called at the pathologist discretion as clinically indicated. Values <0.01 should be viewed with caution. Other Variants of Unknown Significance (VUS)*: None Detected. *This test is designed for somatic analysis of variants and may provide information about the germline. It cannot distinguish between somatic and germline variants. Germline testing should be ordered separately, as indicated. Some variants on the VUS list may later found to be pathogenic and some may be of germline in nature. The following recurrently mutated codons have wild type sequences only: ABL1 315 BRAF 594 BRAF 595 BRAF 596 BRAF 597 BRAF 600 BRAF 601 CBL 371 CBL 384 CBL 404 CSF3R 615 CSF3R 617 CSF3R 618 DDX41 525 DNMT3A 882 ETNK1 244 FLT3 835 GNAS 201 GNB1 57 IDH2 172 KIT 816 KIT 822 KIT 823 KRAS 12 KRAS 13 KRAS 61 KRAS 146 MAP2K1 57 MAP2K1 121 MPL 505 MPL 515 MYD88 265 NOTCH1 2514 NPM1 287 NPM1 288 NRAS 12 NRAS 13 NRAS 61 NRAS 146 PTPN11 60 PTPN11 61 PTPN11 71 PTPN11 72 PTPN11 73 PTPN11 76 SETBP1 868 SF3B1 625 SF3B1 626 SF3B1 662 SF3B1 666 SF3B1 700 SF3B1 742 SRSF2 95 STAT3 640 STAT3 661 U2AF1 34 U2AF1 156 U2AF1 157 XPO1 571 The following recurrently mutated codons have inadequate coverage(<100X): KRAS 12 KRAS 13 INTERPRETATION: QC details*: MTC: 559.6226 OU758q: 94.4% *MTC > 325 and ZH266c > 85% is considered as good quality IDH1 p.R132H chr2 :[id number] MISSENSE 2q34: Isocitrate dehydrogenase 1 (IDH1) encodes a cytoplasmic enzyme that catalyzes the conversion of isocitrate to a-ketoglutarate. Mutant IDH enzymes have neomorphic activity, converting a-ketoglutarate to 2-hydroxyglutarate, whose effects include inhibition of TET2. IDH1 is recurrently mutated in AML, and less frequent in MDS and MPN. Pathogenic mutations are missense mutations at the hotspot IDH1 p.R132. FDA-approved IDH1 inhibitors are available, although resistance mutations have been described. (PMIDs: 08501488, [id number]) IDH2 p.R140Q chr15:[id number] MISSENSE 15q26.1: Isocitrate dehydrogenase 2 (IDH2) encodes for a mitochondrial enzyme that catalyzes the oxidative decarboxylation of isocitrate to a-ketoglutarate. Mutant IDH enzymes have neomorphic activity, converting a-ketoglutarate to 2-hydroxyglutarate, whose effects include inhibition of TET2. IDH2 is recurrently mutated in AML, and less frequent in MDS and MPN. IDH2 mutations are also recurrent in AITL. Pathogenic mutations are missense mutations at the hotspots IDH2 p.R140 and p.R172. FDA-approved IDH2 inhibitors are available, although resistance mutations have been described. (PMIDs: 25683019, 22445828) JAK2 p.V617F chr9 :[id number] MISSENSE 9p24.1: JAK2 encodes a non-receptor tyrosine kinase that initiates cytokine mediated signaling. JAK2 mutations are recurrent in myeloproliferative neoplasms and may also occur in lymphoid and myeloid leukemias. The classic JAK2 p.V617F mutation is observed in the vast majority of [place] chromosome-negative MPN. A small subset of polycythemia vera patients harbor indel mutations within exon 12 of JAK2 or other rare non-canonical mutations. Homozygous JAK2 p.V617F frequently occur through copy number neutral loss of heterozygosity at 9p. Rare gene fusions involving JAK2 have been described in hematologic malignancies. Ruxolitinib is an FDA-approved JAK1/2 inhibitor for patients with myelofibrosis regardless of driver license reviewing officer mutation. Germline znwo-si-pvbfcvnk mutations in JAK2 (excluding p.V617F) have been described in familial MPN. (PMIDs: 02440153, 93021106, 15699165, 37396929) NFE2 p.Y65* chr12:[id number] FRAMESHIFT 12p13.13: NFE2 encodes a resource management specialist factor essential for erythroid differentiation. Overexpression of NFE2 is observed in polycythemia vera and myelofibrosis and contributes to disease progression. Truncating mutations in NFE2 have been observed rarely in PV and MF patients. The truncated mutant NFE2 enhances wild-type NFE2 mRNA expression, protein stability, and activity, thereby augmenting the cytokine-independent proliferative advantage of the mutant MPN clone. (PMIDs: 08224967) TET2 p.Q939* chr4 :[id number] NONSENSE 4q24: TET2 (Ten eleven translocation 2) encodes an alpha ketoglutarate-depende nt dioxygenase that converts 5-methylcytosine (5-MC) to 5-hydroxymethylcytosi ne (5-hMC) and promotes DNA methylation. TET2 mutations are recurrent in clonal hematopoiesis, MDS, MPN, MDS/MPN, AML, AITL, PTCL, and DLBCL. Pathogenic nonsense, frameshift, and splice site mutations are found throughout the coding region and cause loss of function. Missense variants are also found in the catalytic cysteine-rich and double-stranded beta-helix domains. TET2 mutations can be found without overt disease and, in the context of known disease, can persist in morphologic remission. (PMIDs: 77761015, 21857705, 70415720) ZRSR2 chrX :[id number] 3' SPLICE, p.R169* chrX :[id number] NONSENSE Xp22.2: ZRSR2 encodes a component of the U12 spliceosome. ZRSR2 is recurrently mutated in myeloid neoplasms (MDS, AML, and MPNs). Pathogenic nonsense, frameshift, and splice site mutations are found throughout the coding region and cause loss of function. Missense mutations are also observed. Loss of function in ZRSR2 is thought to involve retention of E15-bodz exons, leading to altered HSC proliferation and differentiation. (PMIDs: 33360149, 00660696, 00636837, 99194383) Test Information: The [facility] Rapid Heme Panel (RHP) Assay is a next generation sequencing assay based on the [employer] kit from [employer] A detailed description of the assay is available upon request from [facility], [facility]. Amplification method: [place]ara Direct(R), [employer] Assay Version: Rapid Heme Panel V3.0 Genes: Total 88,(183 KB) whole coding sequence for most genes Sequencing platform: Illumina NextSeq 550Dx, 150bp paired-end reads Raw data processing: BWA Mem (v0.7.17) ERICA Correction: Fgbio (v0.4.0) Variant Caller: Vardict (v1.6.0) CNV Caller: RobustCNV (internally developed) FLT3-ITD: TsaiITD (internally developed) Data File formats: BAM, VCF Genome version: hg19 Metrics: GATK (v.4.0.5.0) and Fgbio (v0.4.0) Variant Annotation: Variant Effect Predictor (v79) Pipeline cutoff: 3 Variant Reads and 1% variant allele frequency. Analytical sensitivity: Varies from locus to locus, but is estimated to be 3.0% at 325x consensus coverage The test performed at [facility] were developed and their performance characteristics determined by the Molecular Diagnostic Laboratory in the Department of Pathology at [facility]. They have not been cleared or approved by the U.S. Food and Drug Administration (FDA). The FDA has determined that such clearance or approval is not necessary. The following regions have insufficient number of sequence reads (<100X) for evaluation. Gene Exon Start End Coverage BRCC3 e2 184077040 247596559 22.754501 CREBBP e01 3867439 6115810 33.332687 CUX1 e01 334242880 190344112 32.73868 IDH2 e1 53764905 63465940 33.358621 KMT2A e1 988530312 786658133 39.038766 NF1 e20 70845735 61075048 37.414399 TERT e01 1201041 9776420 17.441747 Targeted Gene/Exon List (genomic coordinates available upon request): The [facility] Rapid Heme Panel (RHP) Assay is a next generation sequencing assay based on the [employer] kit from [employer]. A detailed description of the assay is available upon request from [facility], [facility]. ABL1 [id number] 5 alt e1 ABL1 NZEB72266262056 5 e1-e10 ASXL1 IHEH05603934175 4 e11-e12 PARMINDER PDMP84234520744 4 e2-e63 ATRX MUHH07633917315 5 e1-e35 BCOR CEKW04991705968 4 e2-e15 BCORL1 FNAL50559438705 1 e1-e12 BCORL1 [id number] 1 alt e8 BRAF SPAK06624118291 6 e12-e16 BRCC3 XKKU21997362111 1 e1-e11 BTK VHHT20052349925 7 e11,e15-e16 CALR VCAL19519467150 5 e9 CBL AUSN67344048094 4 e7-e9 CCND1 BPVN41887597143 2 e1-e5 CD79B KSSD73755005287 3 e5-e6 CDKN2A TTVR50269495999 1 e1-e4 CDKN2A NM_[id number] 1 alt e1 CDKN2B CSJH57789202403 6 e1-e2 CEBPA IPCO49750852252 2 e1 CREBBP ZPAS21894828595 5 e1-e31 CRLF2 KQEL57394762174 3 e5 CSF3R SCIW56372561405 1 e14-e17 IWUD7K1 NOOD04822543828 2 e1-e10 LVDC3C1 NGKW56092476929 2 alt e5 CTCF FQAP91805561013 4 e3-e12 CUX1 AFJT03783469194 7 e1-e24 CUX1 ONDB69479198533 7 alt e1,e15-e23 CXCR4 TBEB48058504967 3 e3 DDX41 PHZS15512267863 1 e1-e17 DKC1 DUVY76507295942 5 e1-e15 DNMT3A TXHO75498263200 3 alt e1-e2 DNMT3A YFMH02938283957 3 e2-e23 DNMT3A [id number] 3 alt e1 EP300 DMXQ06120667980 7 e1-e31 ERG OFYA96556922498 2 alt e1 ERG FEHZ85332996696 2 e3-e12 ERG [id number] 2 alt e12 ETNK1 IPJL19796086556 4 e3 ETV6 UWLM20928760187 4 e1-e8 EZH2 VDZN57075676901 2 e2-e20 FBXW7 HUJM05824418774 4 e10-e14 FLT3 KUWJ29010091410 7 e14,e16-e17,e20 GATA1 UNNU93737477467 3 e2-e6 GATA2 ILET66721100269 2 e2-e6 GNAS LAPQ71611178193 3 e8-e9 GNB1 IQRP33360971494 4 e5-e6 IDH1 EJJJ05840312028 2 e3-e10 IDH2 LHVV72285598245 3 e1-e11 IKZF1 CSQZ63073469358 3 e2-e8 IKZF1 KXKM12424238980 3 alt e4 IKZF1 VBTQ90385114095 3 alt e5 IL7R TEFU09980428724 3 e5-e7 JAK1 THOF04660194699 4 e10-e25 JAK2 AJMD54241675653 3 e12-e20 JAK3 HVRB05417813158 1 e16-e24 KIT YOYL78316552302 5 e8-e11,e17 KRAS FRGZ45493909932 3 e2-e6 KRAS CSYA66468537224 3 alt e5 KMT2A RBFD18354554231 1 e1-e13,e24-e26 MAP2K1 JKJW39991534633 5 e2-e3,e6 e28-e30 MPL ROBP80762497681 3 e4,e10 NF1 ZISR71916134782 3 e1-e57 NF1 IBEP57983193562 3 alt e31 MYC GZZS77725613169 2 e1-e3 MYD88 TQZS50433775018 3 e5 NOTCH2 CWFD57756816011 2 e24-e28,e34 NFE2 QULN83782032076 1 e3-e4 NOTCH1 RDIK87826618098 6 e24-e28,e34 NSD2 IDLH73281205987 3 e20-e21 NPM1 IKZM32821475998 5 e10-e11 NRAS ECCU08637256753 4 e2-e5 PIGA GJKW94078027286 4 e1-e62 NT5C2 DZEI24126924322 5 e10-e18 PHF6 YZEW17377866557 1 e1-e9 PRPF8 HCNO80834566414 6 e25-e34 PLCG2 UQUC93001039033 3 e18-e19,e23 e26,e29 PPM1D REBH57195346621 3 e6 RAD21 FHMV97371948457 2 e2-e14 PTEN ITIM82079744748 3 e1-e9 PTPN11 PEXP28630507951 2 e1-e15 SBDS REEQ33987202711 2 e1-e5 RIT1 PURS75873347858 3 alt e1 RIT1 LSCW28691517203 3 e2-e6 RUNX1 PCVC78442302632 1 e2-e9 RUNX1 QRCG40931868969 1 alt e5 SF3B1 BUMX61917177986 6 e12-e18 SETBP1 ZCBY74471844639 5 e4 SETD2 TPMM69955214513 3 e1-e21 SMC3 TTCX24047742710 4 e1-e29 SH2B3 RFCK39630957690 2 alt e1 SH2B3 TGOO46586047632 2 e2-e8 SMC1A OFBG66589202603 4 e1-e25 SMC1A [id number] 4 alt e2 STAT3 DMVW01917225639 5 e2-e24 SRSF2 NITN02916869605 5 e1 STAG2 CQSD25611900285 9 e3-e35 TERT FGPL29893138149 5 e1-e16 STAT5B OLVY92370506338 3 e13-e19 TERC EOUW43694410312 1 e1 U2AF1 BESB05524057384 4 e2,e6 TET2 CMQY13952820893 4 e3-e11 TP53 DTYA97299073041 4 e2-e11 TP53 UFUS29160271708 4 alt e10 ZRSR2 NVJI80129171070 7 e1-e11 WT1 NDRW03275576784 3 alt e1 WT1 YIQG38275065500 3 e1-e10 XPO1 AMXO87228643158 2 e15-e16 The test performed at [facility] were developed and their performance characteristics determined by the Molecular Diagnostic Laboratory in the Department of Pathology at [facility]. They have not been cleared or approved by the U.S. Food and Drug Administration (FDA). The FDA has determined that such clearance or approval is not necessary. By his/her signature below, the senior physician certifies that he/she personally reviewed all the laboratory data of the described specimen(s) and rendered or confirmed the diagnosis(es) related thereto. Final Diagnosis by Gabriel Antoine M.D., Ph.D., Electronically signed on May at 12:19:37PM [facility] Conversion Type (Other) 05/30/2025 05/30/2025 Kelli De La Garza M.D. Leukemia Dfstephon Self MD PATHOLO GY ORDERABLES Edited Result - Final [facility] [address] [place] [address] * Rad Onc Aria Session Summary (05/29/2025 3:35 PM EDT) Course ID C1 [facility] RADIATION ONCOLOGY Course Intent Curative [facility]COLOG[facility] Course Start Date 04/13/2025 11:53 AM [facility] Course First Treatment Date 05/10/2025 10:55 AM [facility] Course Last Treatment Date 05/29/2025 3:34 PM [facility] Course Elapsed Days 19 [facility] RADIATION ONCOLOGY Plan ID A1_LEarParoN k^A1_L Ear Parotid Neck [facility] RAD[facility]ATION ONCOLOGY Plan Name A1_L Ear Parotid Neck [facility] ONCOLOG[facility] Plan Fractions Treated to Date 13 [facility] RADIATION ONCOLOGY Plan Total Fractions Prescribed 25 [facility] RADIATION ONCOLOGY Plan Prescribed Dose Per Fraction 2 Gy [facility] RADIATION ONCOLOGY Plan Total Prescribed Dose 5000 cGy [facility] RADIATION ONCOLOGY Plan Primary Reference Point A_LEarParoNk [facility] RADIATION ONCOLOGY Reference Point ID A_LEarParoNk [facility] RADIATION ONCOLOGY Reference Point Dosage Given to Date 26 Gy [facility] RADIATION ONCOLOGY Reference Point Session Dosage Given 2 Gy [facility] RADIATION ONCOLOGY 05/29/2025 3:35 PM EDT us Conversion Provider Not In Sys RADIATION ONCOLOG Y ORDERABLES Final Result [facility] RAD[facility]ATION ONCOLOG[facility] * Rad Onc Aria Session Summary (05/26/2025 8:58 AM EDT) Course ID C1 [facility] RADIATION ONCOLOGY Course Intent Curative [facility] RADIATION ONCOLOGY Course Start Date 04/13/2025 11:53 AM [facility] RAD[facility]ATION ONCOLOGY Course First Treatment Date 05/10/2025 10:55 AM [facility] RAD[facility] ONCOLOGY Course Last Treatment Date 05/26/2025 8:57 AM [facility] RADIATION ONCOLOGY Course Elapsed Days 16 [facility] RADIATION ONCOLOGY Plan ID A1_LEarParoN k^A1_L Ear Parotid Neck [facility] RADIATION ONCOLOGY Plan Name A1_L Ear Parotid Neck [facility] RADIATION ONCOLOGY Plan Fractions Treated to Date 12 [facility] RADIATION ONCOLOGY Plan Total Fractions Prescribed 25 [facility] RADIATION ONCOLOGY Plan Prescribed Dose Per Fraction 2 Gy [facility] RADIATION ONCOLOGY Plan Total Prescribed Dose 5000 cGy [facility] RADIATION ONCOLOGY Plan Primary Reference Point A_LEarParoNk [facility] RADIATION ONCOLOGY Reference Point ID A_LEarParoNk [facility] RADIATION ONCOLOGY Reference Point Dosage Given to Date 24 Gy [facility] RADIATION ONCOLOGY Reference Point Session Dosage Given 2 Gy [facility] RADIATION ONCOLOGY 05/26/2025 8:58 AM EDT us Conversion Provider Not In Sys RADIATION ONCOLOG Y ORDERABLES Final Result [facility] RADIATION ONCOLOGY * Rad Onc Aria Session Summary (05/25/2025 9:06 AM EDT) Course ID C1 [facility] RADIATION ONCOLOGY Course Intent Curative [facility] RADIATION ONCOLOGY Course Start Date 04/13/2025 11:53 AM [facility] ONCOLOG[facility] Course First Treatment Date 05/10/2025 10:55 AM [facility] RADIATION ONCOLOGY Course Last Treatment Date 05/25/2025 9:05 AM [facility] RADIATION ONCOLOGY Course Elapsed Days 15 [facility] RADIATION ONCOLOGY Plan ID A1_LEarParoN k^A1_L Ear Parotid Neck [facility] RADIATION ONCOLOGY Plan Name A1_L Ear Parotid Neck [facility] RADIATION ONCOLOGY Plan Fractions Treated to Date 11 [facility] RADIATION ONCOLOGY Plan Total Fractions Prescribed 25 [facility] RADIATION ONCOLOGY Plan Prescribed Dose Per Fraction 2 Gy [facility] RADIATION ONCOLOGY Plan Total Prescribed Dose 5000 cGy [facility] RADIATION ONCOLOGY Plan Primary Reference Point A_LEarParoNk [facility] RADIATION ONCOLOGY Reference Point ID A_LEarParoNk [facility] RADIATION ONCOLOGY Reference Point Dosage Given to Date 22 Gy [facility] RADIATION ONCOLOGY Reference Point Session Dosage Given 2 Gy [facility] RADIATION ONCOLOGY 05/25/2025 9:06 AM EDT us Conversion Provider Not In Sys RADIATION ONCOLOG Y ORDERABLES Final Result [facility] RADIATION ONCOLOGY * Rad Onc Aria Session Summary (05/24/2025 1:55 PM EDT) Course ID C1 [facility]A RADIATION ONCOLOGY Course Intent Curative [facility] RADIATION ONCOLOGY Course Start Date 04/13/2025 11:53 AM [facility] RADIATION ONCOLOGY Course First Treatment Date 05/10/2025 10:55 AM [facility] RADIATION ONCOLOGY Course Last Treatment Date 05/24/2025 1:53 PM [facility] RADIATION ONCOLOGY Course Elapsed Days 14 [facility] RADIATION ONCOLOGY Plan ID A1_LEarParoN k^A1_L Ear Parotid Neck [facility] RADIATION ONCOLOGY Plan Name A1_L Ear Parotid Neck [facility] RADIATION ONCOLOGY Plan Fractions Treated to Date 10 [facility] RADIATION ONCOLOGY Plan Total Fractions Prescribed 25 [facility] RADIATION ONCOLOGY Plan Prescribed Dose Per Fraction 2 Gy [facility] RADIATION ONCOLOGY Plan Total Prescribed Dose 5000 cGy [facility] RADIATION ONCOLOGY Plan Primary Reference Point A_LEarParoNk [facility] RADIATION ONCOLOGY Reference Point ID Blue_Indra ARIA RADIATION ONCOLOGY Reference Point Dosage Given to Date 20 Gy [facility] RADIATION ONCOLOGY Reference Point Session Dosage Given 2 Gy [facility] RADIATION ONCOLOGY 05/24/2025 1:55 PM EDT us Conversion Provider Not In Sys RADIATION ONCOLOG Y ORDERABLES Final Result [facility] RADIATION ONCOLOGY * Microalbumin/creatinine ratio, random urine (12/31/2023 11:24 AM EST) URINE MICROALBUMIN <1.2 0 - 2.3 mg/dL [facility] URINE CREATININE 78 mg/dL [facility] MICROALB/CRE RATIO NOT CALCULATED 0 - 20 mg/g Cre [facility] Comment:due to Microalbumin <1.2 Urine (Urine) 12/31/2023 11: 24 AM EST 12/31/2023 11:26 AM EST us Alla Escobar MD URINE ORDERABLES Final Result Performing Organization Address City/[facility]/ZIP Co de Phone Number [address] [address] * (ABNORMAL) Lipid panel (12/31/2023 11:14 AM EST) HDL 30 mg/dL [facility] Comment: Interpretation <40 mg/dL: Low HDL cholesterol (major risk factor for CHD) Greater than or equal to 60 mg/dL: High HDL cholesterol ( negative risk factor for CHD) HDL - cholesterol is affected by a number of factors, e.g. smoking, excerise, hormones, sex and age. CHOLESTEROL 117 0 - 240 mg/dL [facility] TRIGLYCERIDES 237(H) 30 - 160 mg/dL [facility] LDL 40(L) 50 - 129 mg/dL [facility] Comment: LDL levels in terms of risk for coronary heart disease: <100 mg/dL: Optimal 100-129 mg/dL: Near or above optimal 130-159 mg/dL: Borderline high 160-189 mg/dL: High >190 mg/dL: Very High CARDIAC RISK RATIO 3.9 3.4 - 5.0 C [facility] Blood 12/31/2023 11:1 4 AM EST 12/31/2023 11:17 AM EST us Alla Escobar MD LAB BLOOD ORDERABLES Final Res ult [address] [address] from Last 3 Months or Most Recently Relevant to Health Maintenance Insurance [employer] SUPPLEMENT MEDICARE PART A & B [employer] MEDEX SUPPLEMENT MEDICARE PART A & B [employer] MEDEX SUPPLEMENT [employer] MEDEX SUPPLEMENT [place] CROSS MEDEX SUPPLEMENT MEDICARE PART A & B [place] CROSS MEDEX SUPPLEMENT MEDICARE PART A & B [employer] MEDEX SUPPLEMENT MEDICARE PART A & B [employer] MEDEX SUPPLEMENT [place] CROSS MEDEX SUPPLEMENT MEDICARE PART A & B Advance Directives For more information, please contact: [phone] (9AM - 5PM [facility], Thursday-Thursday) * Full Code (Latest Code Status on File) Date Activated Date Inactivated Comments 03/29/2025 4:35 PM Question Answer Comments Code Status Confirmed With: Patient Care Teams Leg Breaker Relationship Specialty Start Date End Date Mariely Vargas MD [address] [address] PCP - General Internal Medicine 03/29/24 Lindsay Perales MD [address] [place] [id number] [email or web address] Radiation Oncology 07/12/24 Libertad Ramos DO [address] [place] [id number] [email or web address] Medical [email or web address] 12/22/24 Maribel Nur MD, MPH [address] [place] [phone] [email or web address] Otolaryngology 12/22/24 Kezia Webb MD [address] [place] [id number] [email or web address] 12/22/24 Lor Bal MD [address] [place] [phone] [email or web address] [email or web address] Internal Medicine 12/22/24 Mynor Coats MD [facility] [address] Dermatology 01/02/25 Eliseo Rand RN [address] [place] [address] [email or web address] Associate Infusion Nurse 01/02/25 Grover Barbosa MD [address] [place] [address] [place] [address] Dental Patient Coordinator Pulmonary Disease 01/05/25 Neville Torres MD [address] [place] [phone] [email or web address] Urology 01/27/25 Kya Diaz, RN [address] [address] [email or web address] Associate Infusion Nurse 01/23/25 Yvonne Lewis [address] [place] [address] [email or web address] Manager Laundry 04/13/25 Brennon Delcid MD, MPH [address] [place] [address], ASB1- L[address] [place] [address] [email or web address] Radiation Oncology 06/02/25 Cathy Schmidt PA-C [address] [place] [address] [place] [address] [email or web address] Physician Instructor Extension Work 06/14/25 Additional Source Comments The information contained in this document represents components of the legal health record. It is not the complete legal health record.[facility]
--- OUTSIDE RECORDS SUMMARY | 2025-08-24 09:27 | XMS_ITS | Encounter Summary ---
Author Organization [facility] Address [address] [facility] [address] [place] [address] Phone Care Team Providers Care Surgical Device Sales Representative Name Role Phone Mariely Vargas MD Primary Care Provider Lindsay Perales MD Unavailable Richard Eden DO, Justine Unavailable [phone] Maribel Nur MD, MPH Unavailable Kezia Webb MD Unavailable [phone] Lor Bal MD Unavailable [phone] Mynor Coats MD Unavailable Eliseo Rand RN Unavailable Ayaka [email or web address].[facility] Grover Barbosa MD Unavailable Neville Torres MD Unavailable + [phone] Kya Diaz RN Unavailable Naga [email or web address] HERBERT.[facility] Yvonne Lewis Unavailable [phone] Brennon Delcid MD, MPH Unavailable + Cathy Schmidt PA-C Unavailable + Encounter Details Date Type Department Care Team (Late st Contact Info) Description 01/27/2025 Procedure Pass [facility] [address] [place] [address] Social History Tobacco Use Types Packs/Day Years Used Date Smoking Tobacco: Never Smokeless Tobacco: Never Alcohol Use Standard Drinks/Week Comments Yes 22 (1 standard drink = 0.6 oz pu re alcohol) social drink Child or Family Care Answer Date Record [...] got money to buy more. Never True 07/18/2024 Within the past 6 months the food we bought just didn't last and we didn't have enough money to get more. Never True Residential Stability Answer Date Recor ded What is your housing situation today? I have bryan sing 07/18/2024 How many times have you move d in the past 12 months? Zero (I did not move) 07/18/2024 Paying for Meds Answer Date Recorded Do you have trouble paying for medicines? No 07/18/2024 Paying Utility Bills Answer Date Record ed Do you have trouble paying your heating or elect ricity bill? No 07/18/2024 Transportation Answer Date Recorded Has the lack of transportati on kept you from medical appointments or from getting medications? No 07/18/2024 Digital Access Answer Date Recorded No 04/05/2023 No 04/05/2023 Reliable internet access at home? Not on file 04/05/2023 Device with a working camera? Not on file Intimate Partner Violence Answer Date R ecorded Are you denied basic needs s uch as food, clothing, or medical care? No 01/02/2025 In the past 12 months have y ou been in a relationship with a person who hurts, threatens, or tries to control you? No 01/02/2025 Are you denied basic needs s uch as food, clothing, or medical care? No 01/02/2025 In the past 12 months have y ou been in a relationship with a person who hurts, threatens, or tries to control you? No 01/02/2025 Sex and Gender Information Value Date Recorded Sex Assigned at Male 07/12/2024 4:52 PM EDT Legal Sex Male 7:22 PM EST Gender Identity Male 07/12/2024 4:52 PM EDT Sexual Orientation Straight 07/12/2024 4: 52 PM EDT documented as of this encounter Plan of Treatment Upcoming Encounters Date Type Department Care Team (Late st Contact Info) Description 06/21/2025 Procedure Pass [facility] Imaging Department, [facility], [place] [address] [facility], Floor [address]1 [place] [address] 07/24/2025 Procedure Pass [facility] Imaging Department, [facility], MRI [address] [facility], Floor [address]1 [place] [address] 08/14/2025 Procedure Pass [facility] Imaging Department, [facility], [place] [address] [facility], Floor [address]1 [place] [address] 08/24/2025 10:00 AM EDT Appointment [facility] Department of Radiation Oncology [address] [facility], Floor [address]2 [place] [address] Cathy Schmidt PA-C [address] [place] [address] [place] [address] Brennon Delcid MD, MPH [address] [place] [address], ASB1- L2 [place] [address] [email or web address] 08/31/2025 10:00 AM EDT Office Visit Oral Medicine, [address], 11th [place] [address] Hao Robertson DMD, PhD [address] [place] [phone] [email or web address] 09/05/2025 11:00 AM EDT Nutrition Nutrition Department, [address] [address] Zenobia Hebert, HARJINDER 15 [place] [address] 09/07/2025 11:00 AM EDT [facility], [address], 11th [place] [address] Maribel Nur MD, MPH 45 [place] [address] [email or web address] Shoshana Fernandez, [facility] OFF [address] [place] [phone] [email or web address] 09/13/2025 9:30 AM EST Blood Draw Laboratory Services, [address], 2nd [place] [address] Libertad Ramos DO [address] [place] [address] [email or web address] 09/13/2025 12:30 PM EST Appointment [facility] Imaging Department, [facility], PET/CT [address] [place] [address] Libertad Ramos DO [address] [place] [address] [email or web address] 09/13/2025 1:40 PM EST Appointment [facility] Imaging Department, [facility], [place] [address] [facility], Floor [address]1 [place] [address] Cathy Schmidt PA-C [address] [facility] [place] [address] [email or web address] Brennon Delcid MD, MPH [address] [place] [facility], ASB1- L2 [place] [address] [email or web address] 09/13/2025 3:30 PM EST Office Visit [facility], [address], [address]th [place] [address] Brennon Delcid MD, MPH [address] [place] [facility], [facility]- L2 [place] [address] [email or web address] 09/15/2025 8:30 AM EST Office Visit [facility], [address], 11th [place] [address] Maribel Nur MD, MPH [address] [place] [address] [email or web address] 09/19/2025 9:20 AM EST Office Visit [facility] [address] [place] [address] Alla Escobar MD [address] [place] [address] 3rd [place] [address] [email or web address] 09/19/2025 10:00 AM EST Telemedicine Center for Melanoma, [address], 5th [place] [address] Libertad Ramos V, DO 450 [place] [address] [email or web address] 10/26/2025 11:40 AM EST Appointment Erika Lank Imaging Department, [facility], MRI [address] [facility], Floor L1 [place] [address] Libertad Ramos V, DO 450 [place] [address] [email or web address] 11/07/2025 10:30 AM EST Blood Draw Laboratory Services, [address], 2nd [place] [address] Darinel Ordaz M.D. Leukemia MD Mike [address] [place] [id number] [place] [address] [email or web address] 11/07/2025 11:30 AM EST Office Visit Center for Leukemia, Division of Hematologic Oncology, [address], 8th [place] [address] Darinel Ordaz M.D. Leukemia MD Mike [address] [place], [place] [id number] [place] [address] [email or web address] documented as of this encounter Visit Diagnoses Not on filedocumented in this encounter Care Teams Surgical Device Sales Representative Relationship Specialty Start Date End Date Mariely Vargas MD [address] [address] PCP - General Internal Medicine 03/29/24 Lindsay Perales MD [address] [place] [address] [email or web address] Radiation Oncology 07/12/24 Libertad Ramos DO [address] [place] [address] [email or web address] Medical Oncology 12/22/24 Maribel Nur MD, MPH [address] [place] [address] [email or web address] Otolaryngology 12/22/24 Kezia Webb MD [address] [place] [address] [email or web address] Dermatology 12/22/24 Lor Bal MD [address] [place] [phone] Wendy [email or web address] Internal Medicine 12/22/24 Mynor Coats MD [address] [place] [address] Dermatology 01/02/25 Eliseo Rand RN [address] [place] [address] [email or web address] Associate Infusion Nurse 01/02/25 Grover Barbosa MD [address] [place] [address] [place] [address] [employer] And [employer] Machine Feeder Pulmonary Disease 01/05/25 Neville Torres MD [address] [address] [email or web address] Urology 01/27/25 Kya Diaz, PHILIPPE 36[address] [facility] 103 [place] [address] [email or web address] Associate Infusion Nurse 01/23/25 Yvonne Lewis [address] [place] [address] [email or web address] Travelift Operator 04/13/25 Brennon Delcid MD, MPH [address] [facility], ASB1- L2 [place] [address] [email or web address] Radiation Oncology 06/02/25 Cathy Schmidt PA-C [address] [place] [address] [place] [address] [email or web address] Physician Purchasing Internship 06/14/25 documented as of this encounter Additional Source Comments The information contained in this document represents components of the legal health record. It is not the complete legal health record.[facility]
--- OUTSIDE RECORDS SUMMARY | 2025-08-24 09:27 | XMS_ITS ---
Author Organization [facility] Address [address] [place] [address] Phone Care Team Providers Care Test Baker Name Role Phone Sam Mariely Mcarthur MD Primary Care Provider [phone] Active Problems Problem Noted Date Diagnosed Date Radiation-induced esophagitis 07/28/2025 Mucositis 07/28/2025 Daria esophagitis ([facility] V24, [facility] V28) 0 07/28/2025 Chronic left-sided lumbar radiculopathy 07/27/20 25 Delirium 07/04/2025 Pneumonia of left lower lobe due to infectious o rganism 06/30/2025 Anemia 06/29/2025 Gastrointestinal hemorrhage, unspecified gastrointestinal hemorrhage type 06/29/2025 Moderate protein-calorie malnutrition ([facility] V 24) 05/05/2025 CLL (chronic lymphocytic marcie kemia) ([facility] V24, [facility] V28) 05/05/2025 Anxiety 05/05/2025 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 On antineoplastic chemotherapy 02/16/2025 Drug therapy 02/16/2025 Acute left-sided back pain with sciatica 025 Intractable back pain 02/04/2025 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 05/10 Nephrolithiasis 10/28/2022 Splenomegaly 10/28/2022 Deep venous thrombosis ([facility] V24, [facility] V28 ) 07/29/2022 Overview (12/18/2022): 1998 at time of DX PV Myelofibrosis ([facility] V24, [facility] V28) 022 Post-phlebitic syndrome 07/29/2022 Pulmonary embolus ([facility] V24, [facility] V28) Thrombocytosis 06/26/2020 Irritable bowel syndrome with diarrhea 0 Lung nodule 05/22/2020 Irritable bowel syndrome 12/29/2017 Kidney disease 12/29/2017 Obstructive sleep apnea syndrome 12/29/2017 Overview (12/18/2022): CPAP Pulmonary nodules 12/29/2017 Skin cancer of nose 12/29/2017 Overview (12/18/2022): Type of cancer not indicated, removed 09/2013 Acquired hypothyroidism 05/26/2017 Chronic gout 05/26/2017 Hyperglycemia 05/26/2017 CHICO (obstructive sleep apnea) 05/26/2017 PV (polycythemia vera) ([facility] V24, [facility] V28 ) 05/26/2017 Prostate cancer ([facility] V24, [facility] V28) 05/26 Current Treatment and Therapy Plans Cemiplimab-rwlc* Plan Start Date:02/15/2025 Plan Provider:Juan Manuel Green MD Linked Problems Squamous cell carcinoma of s kin of left earDrug therapy Treatment Medications Current Day (Day 1 , Cycle 3 - Planned for 03/30/2025) Next Day (Day 1, Cycle 4 - Planned for 04/20/2025) cemiplimab (LIBTAYO) chemo IVPB cemiplimab-rwlc (LIBTAYO) 350 mg in sodium chloride 257 mL chemo IVPB cemiplimab-rwlc (LIBTAYO) 350 mg in sodium chloride 257 mL chemo IVPB Past Treatment and Therapy Plans No past plan information found. Resolved Problems Problem Noted Date Diagnosed Date Resolved Date Sepsis ([facility] V24, [facility] V28) 07/26/2025 07/28/2025
--- OUTSIDE RECORDS SUMMARY | 2025-08-24 09:27 | XMS_ITS | Encounter Summary ---
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 Teacher Name Role Phone Mariely Vargas MD Primary Care Provider Lindsay Perales MD Unavailable Richard Eden DO, Justine Unavailable [phone] Maribel Nur MD, MPH Unavailable Kezia Webb MD Unavailable [phone] Lor Bal MD Unavailable [phone] Mynor Coats MD Unavailable [phone] Eliseo Rand RN Unavailable Ayaka [email or web address] [email or web address].[facility] Grover Barbosa MD Unavailable Neville Torres MD Unavailable + [phone] Kya Diaz RN Unavailable Naga [email or web address] HERBERT.[facility] Yvonne Lewis Unavailable [phone] Brennon Delcid MD, MPH Unavailable + Cathy Schmidt PA-C Unavailable + Encounter Details Date Type Department Care Team (Late st Contact Info) Description 01/27/2025 Procedure Pass [facility] [address] [place] [address] Social History Tobacco Use Types Packs/Day Years [...] st Contact Info) Description 06/21/2025 Procedure Pass [facility] Imaging Department, [facility], [place] [address] [facility], Floor [address]1 [place] [address] 07/24/2025 Procedure Pass [facility] Imaging Department, [facility], MRI [address] [facility], Floor L1 [place] [address] 08/14/2025 Procedure Pass [facility] Imaging Department, [facility], [place] [address] [facility], Floor [address]1 [place] [address] 08/24/2025 10:00 AM EDT Appointment [facility] Department of Radiation Oncology [address] [facility], Floor [address]2 [place] [address] Cathy Schmidt PA-C [address] [place] [address] [place] [address] Brennon Delcid MD, MPH [address] [place] [address], ASB1- [place]2 [place] [address] [email or web address] 08/31/2025 10:00 AM EDT Office Visit Oral Medicine, [address], 11th [place] [address] Hao Robertson DMD, PhD [address] [place] [address] [email or web address] 09/05/2025 11:00 AM EDT Nutrition Nutrition Department, [address] [address] Zenobia Hebert, HARJINDER 15 [place] [address] 09/07/2025 11:00 AM EDT Treatment [facility], [address], 11th [place] [address] Maribel Nur MD, MPH 45 [place] [address] [email or web address]@[email or web address] Shoshana Fernandez, [facility]IC ILLUSTRATOR [address] [place] [phone] [email or web address] 09/13/2025 9:30 AM EST Blood Draw Laboratory Services, [address], 2nd [place] [address] Libertad Ramos DO [address] [place] [address] [email or web address] 09/13/2025 12:30 PM EST Appointment Erika Rg Imaging Department, [facility], PET/CT [address] [place] [address] Libertad Ramos DO [address] [place] [address] [email or web address] 09/13/2025 1:40 PM EST Appointment [facility] R[facility] Imaging Department, [facility], [place] [address] [facility], Floor [address]1 [place] [address] Cathy Schmidt PA-C [address] [facility] [place] [address] [email or web address] Brennon Delcid MD, MPH [address] [facility], ASB1- L2 [place] [address] [email or web address] 09/13/2025 3:30 PM EST Office Visit [facility], [address], [address]th [place] [address] Brennon Delcid MD, MPH [address] [facility], [facility]1- L2 [place] [address] [email or web address] 09/15/2025 8:30 AM EST Office Visit [facility], [address], 11th [place] [address] Maribel Nur MD, MPH [address] [place] [address] Loida@[email or web address] 09/19/2025 9:20 AM EST Office Visit [facility] [address] [place] [address] Alla Escobar MD [address] [place] [address] 3rd [place] [address] [email or web address] 09/19/2025 10:00 AM EST Telemedicine Center for Melanoma, [address], 5th [place] [address] Libertad Ramos V, DO 450 [place] [address] [email or web address] 10/26/2025 11:40 AM EST Appointment Erika Lank Imaging Department, [facility], MRI [address] [facility], Floor [address]1 [place] [address] Libertad Ramos V, DO 450 [place] [address] [email or web address] 11/07/2025 10:30 AM EST Blood Draw Laboratory Services, [address], 2nd [place] [address] Darinel Ordaz M.D. Leukemia MD Mike [address] [place], [place] [id number] [place] [address] [email or web address] 11/07/2025 11:30 AM EST Office Visit Center for Leukemia, Division of Hematologic Oncology, [address], 8th [place] [address] Darinel Ordaz M.D. Leukemia MD Mike [address] [place], [place] [id number] [place] [address] [email or web address] documented as of this encounter Visit Diagnoses Not on filedocumented in this encounter Care Teams Middle [employer] Band Teacher Relationship Specialty Start Date End Date Mariely Vargas MD [address] [address] PCP - General Internal Medicine 03/29/24 Lindsay Perales MD [address] [place] [address] [email or web address] Radiation Oncology 07/12/24 Libertad Ramos DO [address] [place] [address] [email or web address] Medical Oncology 12/22/24 Maribel Nur MD, MPH [address] [place] [address] [email or web address]@[email or web address] Otolaryngology 12/22/24 Kezia Webb MD [address] [place] [address] [email or web address] Dermatology 12/22/24 Lor Bal MD [address] [place] [phone] Wendy [email or web address] Internal Medicine 12/22/24 Mynor Coats MD [address] [place] [address] Dermatology 01/02/25 Eliseo Rand RN [address] [place] [address] [email or web address] Associate Infusion Nurse 01/02/25 Grover Barbosa MD [address] [place] [address] [place] [address] Medical Aide Pulmonary Disease 01/05/25 Neville Torres MD [address] [address] [email or web address] Urology 01/27/25 Kya Diaz, PHILIPPE 3640 [facility] 103 [place] [address] [email or web address] Associate Infusion Nurse 01/23/25 Yvonne Lewis [address] [place] [address] [email or web address] Optometric Aide 04/13/25 Brennon Delcid MD, MPH [address] [facility], ASB1- L2 [place] [address] [email or web address] Radiation Oncology 06/02/25 Cathy Schmidt PA-C [address] [place] [address] [place] [address] [email or web address] Physician Aerospace Physiological Technician 06/14/25 documented as of this encounter Additional Source Comments The information contained in this document represents components of the legal health record. It is not the complete legal health record.[facility]
--- OUTSIDE RECORDS SUMMARY | 2025-08-24 09:27 | XMS_ITS | Encounter Summary ---
Author Organization [facility] Address [address] [facility] [address] [place] [address] Phone Care Team Providers Care Mosquito Sprayer Name Role Phone Mariely Vargas MD Primary Care Provider [phone] Lindsay Perales MD Unavailable Richard Eden DO, Justine Unavailable [phone] Maribel Nur MD, MPH Unavailable Kezia Webb MD Unavailable [phone] Lor Bal MD Unavailable [phone] Mynor Coats MD Unavailable Eliseo Rand RN Unavailable Ayaka Grier@[email or web address] [employer].[facility] Grover Barbosa MD Unavailable Neville Torres MD Unavailable + [phone] Kya Diza RN Unavailable Naga Raygoza@[email or web address].[email or web address] HERBERT.[facility] Yvonne Lewis Unavailable [phone] Brennon Delcid MD, MPH Unavailable + Cathy Schmidt PA-C Unavailable + Encounter Details Date Type Department Care Team (Late st Contact Info) Description 06/07/2025 Transcribe Orders [facility] [address] [place] [address] Mariely Vargas MD [address] [facility] 202 [place] [address] Social History Tobacco Use Types Packs/Day Years [...] st Contact Info) Description 06/21/2025 Procedure [facility] Imaging Department, [facility], [place] [address] [facility], Floor L1 [place] [address] 07/24/2025 Procedure [facility] Imaging Department, [facility], MRI [address] [facility], [place] L1 [place] [address] 08/14/2025 Procedure [facility] Imaging Department, [facility], [place] [address] [facility], [place] L1 [place] [address] 08/24/2025 10:00 AM EDT Appointment [facility] Department of Radiation Oncology [address] [facility], Floor L2 [place] [address] Cathy Schmidt PA-C [address] [place] [address] [place] [address] [email or web address] Brennon Delcid MD, MPH [address] [facility], ASB1- L2 [place], [place] [email or web address] [email or web address] 08/31/2025 10:00 AM EDT Office Visit Oral Medicine, [address], [address] [place] [address] Hao Robertson DMD, PhD 75 [place] [address] [email or web address] 09/05/2025 11:00 AM EDT Nutrition Nutrition Department, [address] [address] Zenobia Hebert, HARJINDER 15 [place] [address] 09/07/2025 11:00 AM EDT [facility], [address], [address] [place] [address] Maribel Nur MD, MPH [address] [place] [address] Loida@[facility] Shoshana Fernandez, [facility] [address] [place] [phone] [email or web address]. santos 09/13/2025 9:30 AM EST Blood Draw Laboratory Services, [address], 2nd [place] [address] Libertad Ramos DO [address] [place] [address] [email or web address] 09/13/2025 12:30 PM EST Appointment Erika Lank Imaging Department, [facility], PET/CT [address] [place] [address] Libertad Ramos DO [address] [place] [address] [email or web address] 09/13/2025 1:40 PM EST [facility], [facility] [place], [place] [address] [facility], Floor [address]1 [place] [address] Cathy Schmidt PA-C [address] [place] [address] [place] [address] [email or web address] Brennon Delcid MD, MPH [address] [place] [address] [email or web address] [email or web address] 09/13/2025 3:30 PM EST Office Visit [facility], [facility] [address], [address] [place] [address] Brennon Delcid MD, MPH [address] [place] [address] Richard@[email or web address] 09/15/2025 8:30 AM EST Office Visit [facility], [facility] [address], [address] [place] [address] Maribel Nur MD, MPH [address] [place] [address] Loida@[facility] 09/19/2025 9:20 AM EST Office Visit [facility] [address] [place] [address] Alla Escobar MD [address] [place] [address] 09/19/2025 10:00 AM EST Telemedicine Center for Melanoma, [address], 5th [place] [address] Libertad Ramos V, DO 450 [place] [address] [email or web address] 10/26/2025 11:40 AM EST Appointment Erika Lank Imaging Department, [facility], MRI [address] [facility], Floor L1 [place] [address] Libertad Ramos V DO 450 [place] [address] [email or web address] 11/07/2025 10:30 AM EST Blood Draw Laboratory Services, [address], 2nd [place], [place] Darinel Ordaz M.D. Leukemia MD Mike [address] [place], [place] [id number] [place] [address] Elena@[facility] 11/07/2025 11:30 AM EST Office Visit Center for Leukemia, Division of Hematologic Oncology, [address], 8th [place] [address] Darinel Ordaz M.D. Leukemia MD Mike [address] [place], [place] [id number] [place], [place] Eelna@[facility] documented as of this encounter Visit Diagnoses Not on filedocumented in this encounter Care Teams Mosquito Sprayer Relationship Specialty Start Date End Date Mariely Vargas MD [address] [address] PCP - General Internal Medicine 03/29/24 Lindsay Perales MD [address] [place] [address] [email or web address] Radiation Oncology 07/12/24 Libertad Ramos DO [address] [place] [address] [email or web address] Medical Oncology 12/22/24 Maribel Nur MD, MPH [address] [place] [address] Loida@[facility] Otolaryngology 12/22/24 Kezia Webb MD [address] [place] [address] [email or web address] Dermatology 12/22/24 Lor Bal MD [address] [place] [phone] Wendy Chavarria@[facility] 12/22/24 Mynor Coats MD [address] [address] Dermatology 01/02/25 Eliseo Rand RN 450 [place] [address] [email or web address] Associate Infusion Nurse 01/02/25 Grover Barbosa MD [address] [place] [address] [place] [address] Marketing Operations Analyst Pulmonary Disease 01/05/25 Neville Torres MD [address] [address] [email or web address] Urology 01/27/25 Kya Diaz RN [address] [address] Silvia@D [email or web address] Associate Infusion Nurse 01/23/25 Yvonne Lewis [address] [place] [address] [email or web address] Director Product Management 04/13/25 Brennon Delcid MD, MPH [address] [place] [address], [facility]- [address] [address] [email or web address] Radiation Oncology 06/02/25 Cathy Schmidt PA-C [address] [place] [address] [place] [address] [email or web address] Physician Glass Tinter 06/14/25 documented as of this encounter Additional Source Comments The information contained in this document represents components of the legal health record. It is not the complete legal health record.[facility]
--- OUTSIDE RECORDS SUMMARY | 2025-08-24 09:27 | XMS_ITS | Encounter Summary ---
Author Organization [employer] [facility] Address [address] [facility] [address] [place] [address] Phone Care Team Providers Care Cleaning Validation Consultant Name Role Phone Mariely Vargas MD Primary Care Provider Lindsay Perales MD Unavailable [phone] Richard Eden DO, Justine Unavailable [phone] Maribel Nur MD, MPH Unavailable Kezia Webb MD Unavailable [phone] Lor Bal MD Unavailable [phone] Mynor Coats MD Unavailable Eliseo Rand RN Unavailable Ayaka Grier@[email or web address] [employer]ppola.[facility] Grover Barbosa MD Unavailable Neville Torres MD Unavailable + [phone] Kya Diaz RN Unavailable Naga Raygoza@[email or web address].[email or web address] HERBERT.[facility] Yvonne Lewis Unavailable [phone] Brennon Delcid MD, MPH Unavailable + Cathy Schmidt PA-C Unavailable + Encounter Details Date Type Department Care Team (Late st Contact Info) Description 06/26/2025 Ancillary Orders [facility] [address] [place] [address] Keith Bolton MD 60 [place] [address] [email or web address] Social History Tobacco Use Types Packs/Day Years [...] st Contact Info) Description 06/21/2025 Procedure Pass [facility] Imaging Department, [facility], [place] [address] [facility], Floor L1 [place] [address] 07/24/2025 Procedure Pass [facility] Imaging Department, [facility], MRI [address] [facility], Floor L1 [place] [address] 08/14/2025 Procedure Pass [facility] Imaging Department, [facility], [place] [address] [facility], Floor L1 [place] [address] 08/24/2025 10:00 AM EDT Appointment [facility] Department of Radiation Oncology [address] [facility], Floor L2 [place] [address] Cathy Schmidt PA-C [address] [place] [address] [place] [address] [email or web address] Brennon Delcid MD, MPH [address] [place] [address], ASB1- L2 [place] [address] [email or web address] 08/31/2025 10:00 AM EDT Office Visit Oral Medicine, [address], [address]th [place] [address] Hao Robertson DMD, PhD 75 [place] [address] [email or web address] 09/05/2025 11:00 AM EDT Nutrition Nutrition Department, [address] [address] Zenobia Hebert, HARJINDER 15 [place] [address] 09/07/2025 11:00 AM EDT [facility], [address], [address] [place] [address] Maribel Nur MD, MPH 45 [place] [address] Loida@[email or web address] Shoshana Fernandez, CCC-CHOIRMASTER [address] [place] [phone] [email or web address] santos 09/13/2025 9:30 AM EST Blood Draw Laboratory Services, [address], 2nd [place] [address] Libertad Ramos DO [address] [place] [address] [email or web address]@[facility] 09/13/2025 12:30 PM EST Appointment Erika Lank Imaging Department, [facility], PET/CT [address] [place] [address] Libertad Ramos DO [address] [place] [address] [email or web address]@[facility] 09/13/2025 1:40 PM EST Appointment [facility] Imaging Department, [facility], [place] [address] [facility], Floor L1 [place] [address] Cathy Schmidt PA-C 75 [facility] [place] [address] Brennon Delcid MD, MPH [address] [place] [address], [facility]1- L2 [place] [address] Richard@d [facility] 09/13/2025 3:30 PM EST Office Visit [facility] On[facility], [address], [address] [place] [address] Brennon Delcid MD, MPH [address] [place] [address], [facility]1- L2 [place] [address] Richard@[facility] 09/15/2025 8:30 AM EST Office Visit [facility] Oncology, [facility] Cancer [address], [address] [place] [address] Maribel Nur MD, MPH 45 [place] [address] Loida@[facility] 09/19/2025 9:20 AM EST Office Visit [facility] [address] [place] [address] Alla Escobar MD [address] [place] [address] 3rd [place] [address] 09/19/2025 10:00 AM EST Telemedicine Center for Melanoma, [facility] [address] [facility], 5th [place] [address] Libertad Ramos DO 450 [place] [address] [email or web address] 10/26/2025 11:40 AM EST [facility], [facility], MRI [address] [facility], Floor L1 [place] [address] Libertad Ramos DO 450 [place] [address] [email or web address] 11/07/2025 10:30 AM EST Blood Draw Laboratory Services, [address], 2nd [place] [address] Darinel Ordaz M.D. Leukemia MD Mike [address] [place], [place] [id number] [place] [address] Elena@[facility] 11/07/2025 11:30 AM EST Office Visit Center for Leukemia, Division of Hematologic Oncology, [address], 8th [place] [address] Darinel Ordaz M.D. Leukemia MD Mike [address] [place], [place] [id number] [place] [address] [email or web address]@[email or web address] documented as of this encounter Results * MRI Spine (Bone) Outside (No Interpretation) (06/15/2025 12:05 AM EDT) Narrative [facility] IMG INTERFACES - 06/26/2025 7:51 AM EDT This study is for PACS storage only and not for interpretation. us Keith Bolton MD IMG OUTSIDE IMAGING W/OUT IN TERPRETATION Edited Result - Final [facility] IMG INTERFAC[facility] documented in this encounter Visit Diagnoses Not on filedocumented in this encounter Care Teams Cleaning Validation Consultant Relationship Specialty Start Date End Date Mariely Vargas MD [address] [facility] 202 [place] [address] PCP - General Internal Medicine 03/29/24 Lindsay Perales MD 271 [place] [address] [email or web address] Radiation Oncology 07/12/24 Libertad Ramos DO [address] [place] [address] [email or web address] Medical Oncology 12/22/24 Maribel Nur MD, MPH [address] [place] [address] Loida@[facility] Otolaryngology 12/22/24 Kezia Webb MD [address] [place] [address] meeta@[facility] Dermatology 12/22/24 Lor Bal MD [address] [place] [phone] Wendy Chavarria@[facility] Internal Medicine 12/22/24 Mynor Coats MD [address] [address] Dermatology 01/02/25 Eliseo Rand, PHILIPPE 450 [place] [address] [email or web address] Associate Infusion Nurse 01/02/25 Grover Barbosa MD [address] [place] [address] [place] [address] Educational Fundraising Director Pulmonary Disease 01/05/25 Neville Torres MD [address] [address] [email or web address] Urology 01/27/25 Kya Diaz, PHILIPPE [address] Silvia@[facility] Associate Infusion Nurse 01/23/25 Yvonne Lewis [address] [place] [address] [email or web address] Professor Of Counseling 04/13/25 Brennon Delcid MD, MPH [address] [place] [address], ASB1- L2 [place] [address] [email or web address] Radiation Oncology 06/02/25 Cathy Schmidt PA-C [address] [place] [address] [place] [address] [email or web address] Physician Batch Operator 06/14/25 documented as of this encounter Additional Source Comments The information contained in this document represents components of the legal health record. It is not the complete legal health record.[facility]
--- OUTSIDE RECORDS SUMMARY | 2025-08-24 09:28 | XMS_ITS | Encounter Summary ---
Author Organization [facility] Address [address] [facility] [address] [place] [address] Phone Care Team Providers Care Floor Clerk Name Role Phone Mariely Vargas MD Primary Care Provider Lindsay Perales MD Unavailable Richard Eden DO, Justine Unavailable [phone] Maribel Nur MD, MPH Unavailable Kezia Webb MD Unavailable [phone] Lor Bal MD Unavailable [phone] Mynor Coats MD Unavailable Eliseo Rand RN Unavailable [email or web address].[facility] Grover Barbosa MD Unavailable Neville Torres MD Unavailable + [phone] Kya Diaz RN Unavailable Naga [email or web address] Yvonne Lewis Unavailable [phone] Brennon Delcid MD, MPH Unavailable + Cathy Schmidt PA-C Unavailable + Encounter Details Date Type Department Care Team (Late st Contact Info) Description 08/08/2025 Orders Only [facility] [place] Department of Radiation Oncology [address], Floor [address]2 [place] [address] Catyh Schmidt PA-C [address] [facility] [place] [address] Acquired hypothyroidism (Primary Dx) Social History Tobacco Use Types Packs/Day Years [...] st Contact Info) Description 06/21/2025 Procedure Pass [facility] Imaging [facility], [facility], [place] [address], [address]1 [place] [address] 07/24/2025 Procedure Pass [facility] Imaging Department, [facility], MRI [address], [place] [address]1 [place] [address] 08/14/2025 Procedure Pass [facility] Imaging Department, [facility], [place] [address], Floor [address]1 [place] [address] 08/24/2025 10:00 AM EDT Appointment [facility] [place] Department of Radiation Oncology [address], Floor [address]2 [place] [address] Cathy Schmidt PA-C [address] [place] [address] [place] [address] [email or web address] Brennon Delcid MD, MPH [address] [place] [address], ASB1- L2 [place] [address] [email or web address] 08/31/2025 10:00 AM EDT Office Visit Oral Medicine, [address], [address] [place] [address] Hao Robertson, SRAVANTHI, PhD 75 [place] [address] [email or web address] 09/05/2025 11:00 AM EDT Nutrition Nutrition Department, [address] [address] Zenobia Hebert, HARJINDER 15 [place] [address] [email or web address] 09/07/2025 11:00 AM EDT [facility], [address], [address] [place] [address] Maribel Nur MD, MPH 45 [place] [address] [email or web address] Shoshana Fernandez, CCC-COMPTOMETER OPERATOR [address] [place] [phone] [email or web address] 09/13/2025 9:30 AM EST Blood Draw Laboratory Services, [address], 2nd [place] [address] Libertad Ramos DO [address] [place] [address] [email or web address] 09/13/2025 12:30 PM EST Appointment Erika [facility] Imaging Department, [facility], PET/CT [address] [place] [address] Libertad Ramos DO 450 [place] [address] [email or web address] 09/13/2025 1:40 PM EST Appointment [facility], [facility], [place] [address] [facility] [address], Floor L1 [place] [address] Cathy Schmidt PA-C [address] [place] [address] [place] [address] [email or web address] Brennon Delcid MD, MPH [address] [place] [address] [email or web address] 09/13/2025 3:30 PM EST Office Visit [facility], [facility] [address] [facility], 11th [place] [address] Brennon Delcid MD, MPH [address] [place] [address] [email or web address] 09/15/2025 8:30 AM EST Office Visit [facility], [facility] [address] [facility], [address]th [place] [address] Maribel Nur MD, MPH [address] [place] [address] [email or web address] 09/19/2025 9:20 AM EST Office Visit G Endocrinology [address] [place] [address] Alla Escobar MD [address] [place] [address] 3rd [place] [address] 09/19/2025 10:00 AM EST Telemedicine Center for Melanoma, [address], 5th [place] [address] Libertad Ramos DO [address] [place] [address] [email or web address] 10/26/2025 11:40 AM EST Appointment Erika Lank Imaging Department, [facility], MRI [address] [place] [address], Floor L1 [place] [address] Libertad Ramos DO [address] [place] [address] [email or web address] 11/07/2025 10:30 AM EST Blood Draw Laboratory Services, [address], 2nd [place] [address] Darinel Ordaz M.D. Leukemia MD Mike [address] [place], [place] [id number] [place] [address] [email or web address] 11/07/2025 11:30 AM EST Office Visit Center for Leukemia, Division of Hematologic Oncology, [address], 8th [place] [address] Darinel Ordaz M.D. Leukemia MD Mike [address] [place], [place] [id number] [place] [address] [email or web address] documented as of this encounter Results * XR CHEST PA AND LATERAL 2 VIEWS (08/10/2025 12:51 PM EDT) MGB IMG RECOMMENDATION COMMENT Left lower lobe pneumonia [facility] Anatomical Region Laterality Modality Chest Computed Radiogr [...] clinician's provided indication for this examination in [facility]: Cough; history of CLL, polycythemia vera, and [...] clinician's provided indication for this examination in [facility]:Cough; history of CLL, polycythemia vera, and prostate [...] XR CHEST Fi nal Result * (ABNORMAL) Iron and iron binding capacity (08/10/2025 12:50 PM EDT) [facility] IRON 57(L) 59 - 158 ug/dL [facility] IRON BINDING CAPACITY 241 220 - 460 ug/dL [facility] TRANSFERRIN SATURAT. 24 14 - 50 % [facility] Blood 08/10/2025 12:5 0 PM EDT 08/10/2025 1:29 PM EDT Cathy Schmidt PA-C LAB BLOOD ORDERABL ES Final Result Performing Organization Address [facility]/ZIP Co de Phone Number [facility] [address] [place] [phone] * TSH (08/10/2025 12:50 PM EDT) [facility] TSH 2.66 0.27 - 4.20 uIU/mL [facility] Blood 08/10/2025 12:5 0 PM EDT 08/10/2025 1:29 PM EDT Cathy Schmidt PA-C LAB BLOOD ORDERABL ES Final Result Performing Organization Address City/[facility] Co de Phone Number [facility] [address] [place] [address] * (ABNORMAL) Comprehensive metabolic panel (08/10/2025 12:50 PM EDT) [facility] SODIUM 140 136 - 145 mmol/L [facility] POTASSIUM 4.0 3.4 - 5.1 mmol/L [facility] CHLORIDE 102 98 - 107 mmol/L [facility] CO2 24 22 - 31 mmol/L [facility] BUN 13 6 - 23 mg/dL [facility] CREATININE 0.68 0.50 - 1.20 mg/dL [facility] GLUCOSE 118(H) 70 - 100 mg/dL [facility] ALBUMIN 4.3 3.5 - 5.2 g/dL [facility] TOTAL PROTEIN 6.7 6.4 - 8.3 g/dL [facility] CALCIUM 9.7 8.8 - 10.7 mg/dL [facility] ALKALINE PHOSPHATASE 106 40 - 129 U/L [facility] TOTAL BILIRUBIN 0.5 0.2 - 1.2 mg/dL [facility] AST 20 <41 U/L [facility] ALT 15 <42 U/L [facility] GLOBULIN 2.4 2.3 - 4.2 g/dL [facility] EGFR 98 >59 mL/min/1.7 3m2 [facility] Comment:Estimated glomerular filtration rate calculated using the CKD-EPI refit equation. ANION GAP 14 7 - 17 mmol/L [facility] Blood 08/10/2025 12:5 0 PM EDT 08/10/2025 1:29 PM EDT Cathy Schmidt PA-C LAB BLOOD ORDERABL ES Final Result [facility] [address] [place] [address] * (ABNORMAL) CBC and differential (08/10/2025 12:50 PM EDT) WBC 18.62(H) 4.00 - 10.00 K/uL [facility] RBC 3.96(L) 4.50 - 6.40 M/uL [facility] HGB 10.2(L) 13.5 - 18.0 g/dL [facility] HCT 34.2(L) 40.0 - 54.0 % [facility] PLT 480(H) 150 - 450 K/uL [facility] MCV 86.4 80.0 - 100.0 fL [facility] MCH 25.8(L) 27.0 - 32.0 pg [facility] MCHC 29.8(L) 32.0 - 36.0 g/dL [facility] RDW 21.0(H) 11.5 - 14.5 % [facility] MPV 10.9 8.4 - 12.0 fL [facility] NRBC 0.20(H) 0 /100 WBCs [facility] ABSOLUTE NRBC 0.04(H) 0 K/uL [facility] DIFF METHOD MANUAL [facility] NEUTS (MANUAL) 90.8(H) 48.0 - 76.0 % [facility] LYMPHS 3.1(L) 18.0 - 41.0 % [facility] BANDS 2.3 0.0 - 3.0 % [facility] MONOS 0.8(L) 4.0 - 11.0 % [facility] EOSINOPHIL 0.7 0.0 - 5.0 % [facility] BASOPHIL 0.0 0.0 - 1.5 % [facility] BLASTS 0.0 0 % [facility] MYELOS 1.5(H) 0 % [facility] METAS 0.8(H) 0 % [facility] ABSOLUTE NEUTS 16.91(H) 1.92 - 7.60 K/uL [facility] ABSOLUTE LYMPHS 0.58(L) 0.72 - 4.10 K/uL [facility] ABSOLUTE BANDS 0.43(H) 0.00 - 0.30 K/uL [facility] ABSOLUTE MONOS 0.15(L) 0.16 - 1.10 K/uL [facility] ABSOLUTE EOS 0.13 0.00 - 0.50 K/uL [facility] ABSOLUTE BASO 0.00 0.00 - 0.15 K/uL [facility] ABSOLUTE BLASTS 0.00 0 K/uL [facility] ABSOLUTE MYELOS 0.28(H) 0 K/uL [facility] ABSOLUTE METAS 0.15(H) 0 K/uL [facility] ANISO Few [facility] POIKILOCYTOSIS MARKED [facility] POLYCHROME Few [facility] SCHISTOCYTES Moderate [facility] TEAR DROPS MARKED [facility] HYPOCHROMIA Few [facility] MACROCYTES Few [facility] MICROCYTES Moderate [facility] OVALOCYTES MARKED [facility] STOMATOCYTES Few [facility] Blood 08/10/2025 12:5 0 PM EDT 08/10/2025 1:29 PM EDT us Cathy Schmidt PA-C LAB BLOOD ORDERABL ES Final Result [facility] [address] [place] [address] documented in this encounter Visit Diagnoses Diagnosis Acquired hypothyroidism- Primary Unspecified hypothyroidism Acquired hypothyroidism Unspecified hypothyroidism documented in this encounter Care Teams Floor Clerk Relationship Specialty Start Date End Date Mariely Vargas MD [address] [place] [address] PCP - General Internal Medicine 03/29/24 Lindsay Perales MD [address] [place] [address] [email or web address] Radiation Oncology 07/12/24 Libertad Ramos DO [address] [place] [address] [email or web address] Medical Oncology 12/22/24 Maribel Nur MD, MPH [address] [place] [address] [email or web address] Otolaryngology 12/22/24 Kezia Webb MD [address] [place] [address] [email or web address] Dermatology 12/22/24 Lor Bal MD [address] [place] [phone] Wendy [email or web address] Internal Medicine 12/22/24 Mynor Coats MD [address] [place] [address] Dermatology 01/02/25 Eliseo Rand RN 450 [place] [address] [email or web address] Associate Infusion Nurse 01/02/25 Grover Barbosa MD [address] [place] [address] [place] [address] Frame Sample And Pattern Supervisor Pulmonary Disease 01/05/25 Neville Torres MD [facility] [address] [address] Urology 01/27/25 Kya Diaz, RN 36[address] [facility] [address] [place] [address] [email or web address] Associate Infusion Nurse 01/23/25 Yvonne Lewis [address] [place] [address] [email or web address] Railroad Car Cleaning Supervisor 04/13/25 Brennon Delcid MD, MPH [address] [place] [address], ASB1- L2 [place] [address] [email or web address] Radiation Oncology 06/02/25 Cathy Schmidt PA-C [address] [place] [address] [place] [address] [email or web address] Physician Internship Coordinator 06/14/25 documented as of this encounter Additional Source Comments The information contained in this document represents components of the legal health record. It is not the complete legal health record.[facility]
--- OUTSIDE RECORDS SUMMARY | 2025-08-24 09:28 | XMS_ITS | Encounter Summary ---
Author Organization [facility] Address [address] [facility] [address] [place] [address] Phone Care Team Providers Care Visualization Developer Name Role Phone Mariely Vargas MD Primary Care Provider Lindsay Perales MD Unavailable [phone] Richard Eden DO, Justine Unavailable [phone] Maribel Nur MD, MPH Unavailable Kezia Webb MD Unavailable [phone] Lor Bal MD Unavailable [phone] Mynor Coats MD Unavailable Eliseo Rand RN Unavailable Ayaka [email or web address].[facility] Grover Barbosa MD Unavailable [phone] Neville Torres MD Unavailable + [phone] Kya Diaz RN Unavailable Naga [email or web address].[facility] Yvonne Lewis Unavailable [phone] Brennon Delcid MD, MPH Unavailable + aCthy Schmidt PA-C Unavailable + Encounter Details Date Type Department Care Team (Late st Contact Info) Description 07/26/2025 Orders Only [facility] [place] Department of Radiation Oncology [address] [facility], Floor L2 [place] [address] Cathy Schmidt PA-C [address] [facility] [place] [address] [email or web address] Social History Tobacco Use Types Packs/Day Years [...] Description 06/21/2025 Procedure Pass [facility] Imaging Department, [facility], [place] [address] [facility], Floor L1 [place] [address] 07/24/2025 Procedure Pass [facility] Imaging Department, [facility], MRI [address] [facility], Floor L1 [place] [address] 08/14/2025 Procedure Pass [facility] Imaging Department, [facility], [place] [address] [facility], Floor L1 [place] [address] 08/24/2025 10:00 AM EDT Appointment [facility] Department of Radiation Oncology [address] [facility], Floor L2 [place] [address] Cathy Schmidt PA-C [address] [place] [address] [place] [address] [email or web address] Brennon Delcid MD, MPH [address] [place] [address], ASB1- L2 [place] [address] [email or web address].counts include 234 beds at the [facility] 08/31/2025 10:00 AM EDT Office Visit Oral Medicine, [address], [address] [address] Hao Robertson DMD, PhD 75 [place] [address] [email or web address] 09/05/2025 11:00 AM EDT Nutrition Nutrition Department, [address] [address] Zenobia Hebert LDN 15 [place] [address] [email or web address] 09/07/2025 11:00 AM EDT [facility], [address], [address] [place] [address] Maribel Nur MD, MPH [address] [place] [address] [email or web address] Shoshana Fernandez, CCC-APPLIANCE TESTER [address] [place] [phone] [email or web address] 09/13/2025 9:30 AM EST Blood Draw Laboratory Services, [address], 2nd [place] [address] Libertad Ramos DO [address] [place] [address] [email or web address] 09/13/2025 12:30 PM EST Appointment E[facility] Imaging Department, [facility], PET/CT [address] [place] [address] Libertad Ramos DO 450 [place] [address] [email or web address] 09/13/2025 1:40 PM EST Appointment [facility] Imaging Department, [facility], [place] [address] [facility], Floor L1 [place], [place] [phone] Cathy Schmidt PA-C [address] [place] [address] [place] [address] [email or web address] Brennon Delcid MD, MPH [address] [place] [address] [email or web address] 09/13/2025 3:30 PM EST Office Visit [facility], [address], 11th [place] [address] Brennon Delcid MD, MPH [address] [place] [address] [email or web address] 09/15/2025 8:30 AM EST Office Visit [facility], [facility] Cancer [address], [address]th [place] [address] Maribel Nur MD, MPH [address] [place] [address] [email or web address] 09/19/2025 9:20 AM EST Office Visit [facility] [address] [place] [address] Alla Escobar MD [address] [place] [address] 3rd [place] [address] 09/19/2025 10:00 AM EST Telemedicine Center for Melanoma, [address], 5th [place] [address] Libertad Ramos DO [address] [place] [address] [email or web address] 10/26/2025 11:40 AM EST Appointment Erika [facility] Imaging Department, [facility], MRI [address] [place] [address], Floor L1 [place] [address] Libertad Ramos DO [address] [place] [address] [email or web address] 11/07/2025 10:30 AM EST Blood Draw Laboratory Services, [address], 2nd [place] [address] Darinel Ordaz M.D. Leukemia MD Mike [address] [place], [place] [phone] [place] [address] [email or web address] 11/07/2025 11:30 AM EST Office Visit Center for Leukemia, Division of Hematologic Oncology, [address], 8th [place] [address] Darinel Ordaz M.D. Leukemia MD Mike [address] [place], [place] [phone] [place] [address] [email or web address] documented as of this encounter Visit Diagnoses Not on filedocumented in this encounter Care Teams Visualization Developer Relationship Specialty Start Date End Date Mariely Vargas MD [address] [address] PCP - General Internal Medicine 03/29/24 Lindsay Perales MD [address] [place] [address] [email or web address] Radiation Oncology 07/12/24 Libertad Ramos DO [address] [place] [address] [email or web address] Medical Oncology 12/22/24 Maribel Nur MD, MPH [address] [place] [address] [email or web address] 12/22/24 Kezia Webb MD [address] [place] [address] [email or web address] Dermatology 12/22/24 Lor Bal MD [address] [place] [phone] Wendy [email or web address] Internal Medicine 12/22/24 Mynor Coats MD [address] [address] Dermatology 01/02/25 Eliseo Rand, PHILIPPE 450 [place] [address] [email or web address] Associate Infusion Nurse 01/02/25 Grover Barbosa MD [address] [place] [address] [place] [address] Automotive Worker Foreman Pulmonary Disease 01/05/25 Neville Torres MD [address] [address] [email or web address] Urology 01/27/25 Kya Diaz RN [address] [address] [email or web address] Associate Infusion Nurse 01/23/25 Yvonne Lewis [address] [place] [address] [email or web address] Bench Molder 04/13/25 Brennon Delcid MD, MPH [address] [place], [place] [address]- [address] [address] [email or web address].counts include 234 beds at the [facility] Radiation Oncology 06/02/25 Cathy Schmidt PA-C [address] [place] [address] [place] [address] [email or web address] Physician Dot Net Architect 06/14/25 documented as of this encounter Additional Source Comments The information contained in this document represents components of the legal health record. It is not the complete legal health record.[facility]
--- OUTSIDE RECORDS SUMMARY | 2025-08-24 09:28 | XMS_ITS | Encounter Summary ---
Author Organization [facility] Address [address] [facility] [address] [place] [address] Phone Care Team Providers Care Bleach Range Operator Name Role Phone Mariely Vargas MD Primary Care Provider Lindsay Perales MD Unavailable Richard Eden DO, Justine Unavailable [phone] Maribel Nur MD, MPH Unavailable Kezia Webb MD Unavailable [phone] Lor Bla MD Unavailable [phone] Mynor Coats MD Unavailable [phone] Eliseo Rand RN Unavailable Ayaka [email or web address] Coppola.[facility] Grover Barbosa MD Unavailable Neville Torres MD Unavailable + [phone] Kya Diaz RN Unavailable Naga [email or web address].[facility] Yvonne Lewis Unavailable [phone] Brennon Delcid MD, MPH Unavailable + Cathy Schmidt PA-C Unavailable + Encounter Details Date Type Department Care Team (Late st Contact Info) Description 03/29/2025 Prep for Surgery [facility] [address] [place] [address] Maribel Nur MD, MPH [address] [place] [address] [email or web address] Social History Tobacco Use Types Packs/Day Years [...] 5:56 PM EDT Malgorzata Sneed RN * [place] Suicide Severity Rating Scale (Screener/Recent Self-Report) Question Answer Date of Assessment Author 1. Wish to be (Past 1 Month) No 03/29/2025 5:56 PM EDT Keisha Delgado RN 2. Non-Specific Active Suici saran Thoughts (Past 1 Month) No 03/29/2025 5:56 PM EDT Justine Delgado, PHILIPPE 6. Suicidal Behavior (Lifetime) No 5:56 PM EDT Malgorzata Delgado, PHILIPPE documented as of this encounter Plan of Treatment Upcoming Encounters Date Type Department Care Team (Late st Contact Info) Description 06/21/2025 Procedure Pass Erika [facility] Imaging Department, [facility] [place], [place] [address] [facility], Floor L1 [place] [address] 07/24/2025 [facility], [facility] [place], MRI [address] [facility], Floor [address]1 [place] [address] 08/14/2025 Procedure Pass [facility] Imaging Department, [facility] [place], [place] [address] [facility], Floor L1 [place] [address] 08/24/2025 10:00 AM EDT Appointment [facility] Department of Radiation Oncology [address] [facility], Floor L2 [place] [address] Cathy Schmidt PA-C 75 [facility] [place] [address] [email or web address] Brennon Delcid MD, MPH 75 [facility], ASB1- L2 [place] [address] [email or web address] 08/31/2025 10:00 AM EDT Office Visit Oral Medicine, [address], [address]th [place] [address] Hao Robertson DMD, PhD [address] [place] [address] [email or web address] 09/05/2025 11:00 AM EDT Nutrition Nutrition Department, [address] [address] Zenobia Hebert, HARJINDER 15 [place] [address] [email or web address] 09/07/2025 11:00 AM EDT [facility], [address], [address] [place] [address] Maribel Nur MD, MPH [address] [place] [address] [email or web address] Shoshana Fernandez, [facility] [employer] OFFBEARER 20 [place] [phone] [email or web address] 09/13/2025 9:30 AM EST Blood Draw Laboratory Services, [address], 2nd Floor [place], [place] Libertad Ramos V, DO [address] [place] [address] [email or web address] 09/13/2025 12:30 PM EST Appointment [facility] Imaging Department, [facility], PET/CT 450 [place], [place] Libertad Ramos V, DO [address] [place] [address] [email or web address] 09/13/2025 1:40 PM EST [facility]ment [facility], [facility], [place] [address] [facility], Floor L1 [place], [place] [phone] Cathy Schmidt, DIONNA [address] [place] [address] and [facility] [place] Brennon Delcid MD, MPH [address] [place] [address] [email or web address] 09/13/2025 3:30 PM EST Office [facility], [address], 11th [place], [place] [phone] Brennon Delcid MD, MPH [address] [place] [address] [email or web address] 09/15/2025 8:30 AM EST Office Visit [facility], [facility] [address] [facility], 11th [place] [address] Maribel Nur MD, MPH [address] [place] [address] [email or web address] 09/19/2025 9:20 AM EST Office Visit [facility] [address] [place] [address] Alla Escobar MD [address] [place] [address] 3rd [place] [address] 09/19/2025 10:00 AM EST Telemedicine Center [facility] Mel[facility]oma, [address], 5th [place] [address] Libertad Ramos DO [address] [place] [address] [email or web address] 10/26/2025 11:40 AM EST Appointment [facility] Imaging Department, [facility], MRI [address] [place] [address], Floor L1 [place] [address] Libertad Ramos DO [address] [place] [address] [email or web address] 11/07/2025 10:30 AM EST Blood Draw Laboratory Services, [address], 2nd [place] [address] Darinel Ordaz M.D. Leukemia [facility], [address] [place] [address] [place] [address] [email or web address] 11/07/2025 11:30 AM EST Office Visit Center for Leukemia, Division of Hematologic Oncology, [facility] [place] [address] [facility], 8th [place] [address] Darinel Ordaz M.D. Leukemia MD Mike 450 [facility] [place] [address] [email or web address] documented as of this encounter Visit Diagnoses Not on filedocumented in this encounter Care Teams Bleach Range Operator Relationship Specialty Start Date End Date Mariely Vargas MD [address] [address] PCP - General Internal Medicine 03/29/24 Lindsay Perales MD [address] [place] [address] [email or web address] Radiation Oncology 07/12/24 Libertad Ramos DO [address] [place] [address] [email or web address], [facility] Medical Oncology 12/22/24 Maribel Nur MD, MPH [address] [place] [address] [email or web address] Otolaryngology 12/22/24 Kezia Webb MD [address] [place] [address] [email or web address] Dermatology 12/22/24 Lor Bal MD [address] [place] [phone] Wendy [email or web address] Internal Medicine 12/22/24 Mynor Coats MD [address] [address] Dermatology 01/02/25 Eliseo Rand, PHILIPPE 450 [place] [address] [email or web address] Associate Infusion Nurse 01/02/25 Grover Barbosa MD [address] [place] [address] [place] [address] Foot And Ankle Surgeon Pulmonary Disease 01/05/25 Neville Torres MD [address] [address] [email or web address] Urology 01/27/25 Kya Diaz, PHILIPPE [address] [address] [email or web address] Associate Infusion Nurse 01/23/25 Yvonne Lewis [address] [place] [address] [email or web address] Nibbler Operator 04/13/25 Brennon Delcid MD, MPH [address] [place] [address], [facility]- [address] [address] [email or web address] Radiation Oncology 06/02/25 Cathy Schmidt PA-C [address] [place] [address] and [place] [address] [email or web address] Physician Scalehouse Attendant 06/14/25 documented as of this encounter Additional Source Comments The information contained in this document represents components of the legal health record. It is not the complete legal health record.[facility]
--- OUTSIDE RECORDS SUMMARY | 2025-08-24 09:28 | XMS_ITS | Encounter Summary ---
Author Organization [facility] Address [address] [facility] [address] [place] [address] Phone Care Team Providers Care Basketball Referee Name Role Phone Mariely Vargas MD Primary Care Provider Lindsay Perales MD Unavailable Richard Eden DO, Justine Unavailable [phone] Maribel Nur MD, MPH Unavailable Kezia Webb MD Unavailable [phone] Lor Bal MD Unavailable [phone] Mynor Coats MD Unavailable [phone] Eliseo Rand RN Unavailable Ayaka Grier@[email or web address] [email or web address].[email or web address] Grover Barbosa MD Unavailable Neville Torres MD Unavailable + [phone] Kya Diaz RN Unavailable Naga [email or web address] [email or web address].[email or web address] Yvonne Lewis Unavailable [phone] Brennon Delcid MD, MPH Unavailable + Cathy Schmidt PA-C Unavailable + Encounter Details Date Type Department Care Team (Late st Contact Info) Description 08/15/2025 Orders Only [facility] [place] Department of Radiation Oncology [address] [facility], Floor L2 [place] [address] Cathy Schmidt PA-C [address] [facility] [place] [address] [email or web address] Pneumonia of both lungs due to infectious organism, unspecified part of lung (Primary Dx) Social History Tobacco Use Types [...] st Contact Info) Description 06/21/2025 Procedure [facility] Imaging Department, [facility], [place] [address] [facility], Floor L1 [place] [address] 07/24/2025 Procedure Pass [facility] Imaging Department, [facility], MRI [address] [facility], Floor L1 [place] [address] 08/14/2025 Procedure Pass [facility] Imaging Department, [facility], [place] [address] [facility], Floor L1 [place] [address] 08/24/2025 10:00 AM EDT Appointment [facility] Department of Radiation Oncology [address] [facility], Floor L2 [place] [address] Cathy Schmidt PA-C [address] [place] [address] [place] [address] Brennon Delcid MD, MPH [address] [place] [address], ASB1- [address] [address] [email or web address] 08/31/2025 10:00 AM EDT Office Visit Oral Medicine, [address], 11th [place] [address] Hao Robertson, SRAVANTHI, PhD 75 [place] [address] [email or web address] 09/05/2025 11:00 AM EDT Nutrition Nutrition Department, [address] [address] Zenobia Hebert, HARJINDER 15 [place] [address] [email or web address] 09/07/2025 11:00 AM EDT [facility], [address], 11th [place] [address] Maribel Nur MD, MPH [address] [place] [address] [email or web address]@[email or web address] Shoshana Fernandez, [facility]-TOP LIFT COMPRESSER [address] [place] [phone] [email or web address] 09/13/2025 9:30 AM EST Blood Draw Laboratory Services, [address], 2nd [place] [address] Libertad Ramos DO [address] [place] [address] [email or web address] 09/13/2025 12:30 PM EST Appointment [facility] Imaging Department, [facility], PET/CT 450 [place], [place] Libertad Ramos DO 450 [facility] [place] [address] [email or web address] 09/13/2025 1:40 PM EST Appointment [facility] Imaging Department, [facility] [place], [place] [address] [facility], Floor L1 [place] [address] Cathy Schmidt, DIONNA [address] [place] [address] [place] [address] [email or web address] Brennon Delcid MD, MPH [address] [place] [address] [email or web address] 09/13/2025 3:30 PM EST Office Visit [facility], [facility] Cancer [address], 11th [place] [address] Brennon Delcid MD, MPH [address] [place] [address] [email or web address] 09/15/2025 8:30 AM EST Office Visit [facility], [facility] Cancer [address], 11th [place] [address] Maribel Nur MD, MPH [address] [place] [address] [email or web address] 09/19/2025 9:20 AM EST Office Visit [facility] Endocrinology [address] [place] [address] Alla Escobar MD [address] [place] [address] 3rd [place] [address] 09/19/2025 10:00 AM EST Telemedicine Center [facility] Mel[facility]oma, [address], 5th [place] [address] Libertad Ramos DO [address] [place] [address] [email or web address] 10/26/2025 11:40 AM EST [facility], [facility], MRI [address] [place] [address], Floor L1 [place] [address] Libertad Ramos DO [address] [place] [address] [email or web address] 11/07/2025 10:30 AM EST Blood Draw Laboratory Services, [address], 2nd [place] [address] Darinel Ordaz M.D. Leukemia MD Mike [address] [place], [place] [address]jasonsean [facility]2057 [place] [address] [email or web address] 11/07/2025 11:30 AM EST Office Visit Center for Leukemia, Division of Hematologic Oncology, [address], 8th [place] [address] Darinel Ordaz M.D. Leukemia MD Mike [address] [place], [place] [phone] [place] [address] [email or web address] documented as of this encounter Visit Diagnoses Diagnosis Pneumonia of both lungs due to infectious organism, unspecified part of lung- Primary documented in this encounter Care Teams Basketball Referee Relationship Specialty Start Date End Date Mariely Vargas MD [address] [address] PCP - General Internal Medicine 03/29/24 Lindsay Perales MD [address] [place] [address] [email or web address] Radiation Oncology 07/12/24 Libertad Ramos DO [address] [place] [address] [email or web address] Medical Oncology 12/22/24 Maribel Nur MD, MPH [address] [place] [address] Loida@[facility] Otolaryngology 12/22/24 Kezia Webb MD [address] [place] [address] [email or web address] Dermatology 12/22/24 Lor Bal MD [address] [place] [phone] Wendy Chavarria@[facility] Internal Medicine 12/22/24 Mynor Coats MD 3455 [facility] 5 [place] [address] Dermatology 01/02/25 Eliseo Rand RN 450 [place] [address] [email or web address] Associate Infusion Nurse 01/02/25 Grover Barbosa MD [address] [place] [address] [place] [address] Head Track Coach Pulmonary Disease 01/05/25 Neville Torres MD 3640 [facility] 103 [place] [address] [email or web address] Urology 01/27/25 Kya Diaz RN 3640 [facility] 103 [place] [address] [email or web address]@[email or web address] Associate Infusion Nurse 01/23/25 Yvonne Lewis [address] [place] [address] [email or web address] Loop Drier Operator 04/13/25 Brennon Delcid MD, MPH [address] [place] [address], [facility]- [address] [address] [email or web address] Radiation Oncology 06/02/25 Cathy Schmidt PA-C [address] [place] [address] [place] [address] [email or web address] Physician Sleeve Setter Lockstitch 06/14/25 documented as of this encounter Additional Source Comments The information contained in this document represents components of the legal health record. It is not the complete legal health record.[facility]
--- OUTSIDE RECORDS SUMMARY | 2025-08-24 09:28 | XMS_ITS | Encounter Summary ---
Author Organization [facility] Address [address] [place] [address] Care Team Providers Care Night Clerk Auditor Name Role Phone Mariely Vargas MD Primary Care Provider [phone] Encounter Details Date Type Department Care Team (Late st Contact Info) Description 02/17/[address] [facility] Lab [address] [place] [phone] Neville Torres MD 3640 [facility] Jamie [address] [place] [address] Dysuria Social History Tobacco Use Types Packs/Day Years Used Date Smoking Tobacco: Never Smokeless Tobacco: Never Alcohol Use Standard Drinks/Week Comments No 0 (1 standard drink = 0.6 oz pur e alcohol) Interpersonal Safety Answer Date Record ed Physical Abuse Unrecognized value 02/04/2025 Verbal Abuse Unrecognized value 02/04/2025 Sex and Gender Information Value Date Recorded [...] [place] Clarke RN documented in this encounter Plan of Treatment Upcoming Encounters Date Type Department Care Team (Late st Contact Info) Description 09/05/2025 9:30 AM EDT Office Visit [facility] Hematology Oncology [address] [place] [phone] Lor Bal MD [address] [place] [address] documented as of this encounter Procedures Procedure Name Priority Date/Time Associated Diagnosis Comments CULTURE URINE Routine 02/17/2025 8:51 AM EDT Dysuria documented in this encounter Results * (ABNORMAL) Culture urine (02/17/2025 8:51 AM EDT) Culture, Urine >100,000 CFU/mL Klebsiella pneumoniae(A) 02/21/2025 9:56 AM EDT [facility] Comment: This is an edited result. Previous organism was Gram negative bacilli on 02/18/2025 at 1013 EDT. Urine Urine specimen obtained by clean catch procedure / Unknown 02/17/2025 8:51 AM EDT 02/17/2025 6:09 PM EDT Narrative Organism Antibiotic Method Susceptibility Klebsiella pneumoniae Amikacin DISK DIFFUSION Susceptible Klebsiella pneumoniae Amoxicillin/Clavulanate DISK DIF FUSION Intermediate Klebsiella pneumoniae Ampicillin/Sulbactam DISK DIFFUS ION Resistant Klebsiella pneumoniae Cefazolin DISK DIFFUSION Resistant Klebsiella pneumoniae Cefepime DISK DIFFUSION Susceptible-dose dependent Klebsiella pneumoniae Cefoxitin DISK DIFFUSION Resistant Klebsiella pneumoniae Ceftazidime DISK DIFFUSION Susceptible Klebsiella pneumoniae Ceftriaxone DISK DIFFUSION Susceptible Klebsiella pneumoniae Ciprofloxacin DISK DIFFUSION Intermediate Klebsiella pneumoniae Gentamicin DISK DIFFUSION Susceptible Klebsiella pneumoniae Levofloxacin DISK DIFFUSION Intermediate Klebsiella pneumoniae Meropenem DISK DIFFUSION Intermediate Klebsiella pneumoniae Nitrofurantoin DISK DIFFUSION Resistant Klebsiella pneumoniae Piperacillin/Tazobactam DISK DIF FUSION Susceptible-dose dependent Klebsiella pneumoniae Trimethoprim/Sulfa methoxa zole DISK DIFFUSION Resistant Neville Torres MD LAB MICROBIOLOGY - G ENERAL ORDERABLES Final Result [email or web address] [address] [place] [address], documented in this encounter Visit Diagnoses Diagnosis Dysuria documented in this encounter Additional Health Concerns Infection Onset Date Last Indicated Resolved Time CRE 02/17/2025 02/17/2025 MDRO (other) 02/17/2025 02/17/2025 Respiratory Rule-Out 07/26/2025 07/26/2025 025 10:50 PM EDT COVID-19 Rule-Out 07/26/2025 07/26/2025 07/26/2025 10:50 PM EDT documented as of this encounter Care Teams Night Clerk Auditor Relationship Specialty Start Date End Date Mariely Vargas MD [address] [place] [phone] PCP - General 05/29/22 documented as of this encounter
--- OUTSIDE RECORDS SUMMARY | 2025-08-24 09:29 | XMS_ITS | Encounter Summary ---
Author Organization [facility] Address [address] [facility] [address] [place] [address] Phone Care Team Providers Care Street Light Repairer Helper Name Role Phone Mariely Vargas MD Primary Care Provider Lindsay Perales MD Unavailable Richard Eden DO, Justine Unavailable [phone] Maribel Nur MD, MPH Unavailable Kezia Webb MD Unavailable [phone] oLr Bal MD Unavailable [phone] Mynor Coats MD Unavailable Eliseo Rand RN Unavailable Ayaka [email or web address] Grover Barbosa MD Unavailable Neville Torres MD Unavailable + [phone] Kya Diaz RN Unavailable Naga [email or web address] Maged Lewis Unavailable [phone] Brennon Delcid MD, MPH Unavailable + Cathy Schmidt PA-C Unavailable + Reason for Referral * MRI/CAT Scan - Closed Specialty Diagnoses / Procedures Referred By Contvladislav t Referred To Contact Radiology Diagnoses Squamous cell carcinoma, scalp/neck Procedures NM PET CT Scalp to Toes Maribel Nur MD, MPH [address] [place] [address] Phone: tel: fax: mailto:[email or web address] Referral ID Status Reason Start Date Expiration Date Visits Re quested Visits Authorized [id number] Closed 12/15/2024 1 1 Encounter Details Date Type Department Care Team (Late st Contact Info) Description 12/15/2024 [facility]illary [facility] [address] [place] [address] Maribel Nur MD, MPH [address] [place] [address] [email or web address] Squamous cell carcinoma, scalp/neck (Primary Dx) Social History Tobacco Use Types Packs/Day Years Used Date Smoking Tobacco: Never Smokeless Tobacco: Never Alcohol Use Standard Drinks/Week Comments Not Currently 0 (1 standard drink = 0.6 oz pur e alcohol) social drink Child or Family Care [...] housing situation today? I have bryan carter 07/18/2024 How many times have you move [...] with a working camera? Not on file Sex and Gender Information Value Date Recorded Sex Assigned at Male 07/12/2024 4:52 PM EDT Legal Sex Male 7:22 PM EST Gender Identity Male 07/12/2024 4:52 PM EDT Sexual Orientation Straight 07/12/2024 4: 52 PM EDT documented as of this encounter Plan of Treatment Upcoming Encounters Date Type Department Care Team (Late st Contact Info) Description 06/21/2025 Procedure Pass [facility] Imaging Department, [facility], [place] [address] [place] [address] 07/24/2025 Procedure Pass [facility] Imaging Department, [facility], MRI [address], [address] [place] [address] 08/14/2025 Procedure Pass [facility] Imaging Department, [facility], [place] [address], [address] [place] [address] 08/24/2025 10:00 AM EDT Appointment [facility] Department of Radiation Oncology [address], [address] [place] [address] Cathy Schmidt PA-C [address] [place] [address] [place] [address] Brennon Delcid MD, MPH [address] [facility], ASB1- [address]2 [place] [address] [email or web address] 08/31/2025 10:00 AM EDT Office Visit Oral Medicine, [address] [place] [address] Hao Robertson DMD, PhD [address] [place] [address] [email or web address] 09/05/2025 11:00 AM EDT Nutrition Nutrition Department, [address] [address] Zenobia Hebert, CHUCKYN [address] [place] [address] 09/07/2025 11:00 AM EDT Treatment [facility], [address] [place] [address] Maribel Nur MD, MPH [address] [place] [address] [email or web address] Shoshana Fernandez, [facility] CHILDHOOD LEAD TEACHER [address] [place] [phone] [email or web address] 09/13/2025 9:30 AM EST Blood Draw Laboratory Services, [address], 2nd [place] [address] Libertad aRmos DO [address] [place] [address] [email or web address] 09/13/2025 12:30 PM EST Appointment [facility] Imaging Department, [facility], PET/CT [address] [place], [place] Libertad Ramos DO [address] [place] [address] [email or web address] 09/13/2025 1:40 PM EST Appointment [facility] Imaging Department, [facility], [place] [address], [address] [place], [place] [phone] Cathy Schmidt PA-C [address] [facility] [place] [address] [email or web address] Brennon Delcid MD, MPH [address] [place] [phone] [email or web address] 09/13/2025 3:30 PM EST Office Visit [facility], [address] [place] [address] Brennon Delcid MD, MPH [address] [place] [phone] [email or web address] 09/15/2025 8:30 AM EST Office Visit [facility], [address], [address], [place] [address] Maribel Nur MD, MPH [address] [place] [phone] [email or web address] 09/19/2025 9:20 AM EST Office Visit [facility] [address] [place] [address] Alla Escobar MD [address] [place] [address] [address] [place] [address] 09/19/2025 10:00 AM EST Telemedicine [facility] Mel[facility]oma, [address], 5th [place] [address] Libertad Ramos V DO [address] [place] [address] [email or web address] 10/26/2025 11:40 AM EST Appointment [facility] L[facility] Imaging Department, [facility], MRI [address] [place] [address], Floor [address] [place] [address] Libertad Ramos DO [address] [place] [address] [email or web address] 11/07/2025 10:30 AM EST Blood Draw Laboratory Services, [address], 2nd [place] [address] Darinel Ordaz M.D. Leukemia MD Mike [address] [place], [place] [phone] [place] [address] [email or web address] 11/07/2025 11:30 AM EST Office Visit [facility], Division of Hematologic Oncology, [address], 8th [place] [address] Darinel Ordaz M.D. Leukemia MD Mike [address] [place], [place] [id number] [place] [address] [email or web address] documented as of this encounter Results * NM PET CT Scalp to Toes (12/19/2024 2:08 PM EST) Anatomical Region Laterality Modality Computed Tomogra phy Other 12/19/2024 2:40 PM EST Impressions 12/22/2024 7:39 AM EST 1. Two FDG-avid nodules in the left parotid gland are suspicious for metastatic malignancy. There is no other evidence of FDG-avid metastases. 2. There is diffuse mild increased FDG uptake throughout the bone marrow, splenomegaly, and scattered mildly FDG-avid mildly enlarged lymph nodes elsewhere above and below the diaphragm which may 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 ATTESTATION: IVarun, as teaching physician have reviewed the images, if any, for this patient's exam, and if necessary, have edited the report originally created by Etelvina Ruvalcaba. Narrative 12/22/2024 7:39 AM EST Reason for exam (per EHR order): *Skin cancer, staging Additional clinical information obtained from the EHR: 74-year-old male. 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 Also history of prostate cancer s/p prostatectomy. 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 Initial treatment strategy. TECHNIQUE: Radiopharmaceutical: F-18-FDG. Dose: 9.95 mCi. Blood glucose: 153 mg/dL. TECHNIQUE: At 59 minute following IV tracer administration via a right antecubital vein, positron emission tomography was performed from the vertex of the skull through the toes. Non-contrast low-dose helical CT imaging was performed over the same range without breath-hold for attenuation correction of PET images and anatomic correlation. COMPARISON: CT neck 11/30/2024, CT chest 12/05/2024. FINDINGS: HEAD AND NECK: There are two FDG-avid nodules in the left parotid gland demonstrating some central photopenia suggestive of necrosis. The superior lesion measures 1.3 x 1.3 cm (image 82) with SUVmax 12.1. The inferior medial lesion measures 1.7 x 1.4 cm (image 89) with SUVmax 5.6. Carotid artery calcifications. Status post reconstruction of the left ear with mild uptake, likely inflammatory. CHEST: Ports and devices: None. Lungs: No abnormal FDG uptake. Bibasilar atelectasis. Multiple sub-5 mm nodules better evaluated on recent chest CT scan, which are below size threshold for evaluation by PET. Pleura: No abnormal FDG uptake. Lymph Nodes: Multiple enlarged bilateral supraclavicular and mediastinal lymph nodes with mild uptake, for example high left axillary lymph node measuring 1.5 x 1.2 cm (image 122) SUVmax 1.7. Left supraclavicular lymph node measuring 1.1 x 1.0 cm (image 129) with SUVmax 1.8. Mediastinum: No abnormal FDG uptake. Coronary artery calcifications. Breasts/Chest Wall: No abnormal FDG uptake. Bilateral gynecomastia. ABDOMEN/PELVIS: Liver/biliary system: No abnormal FDG uptake. Pancreas: No abnormal FDG uptake. Cholelithiasis. Spleen: No abnormal FDG uptake. Marked splenomegaly measuring 20 cm in the AP dimension. Adrenal Glands: No abnormal FDG uptake. Kidneys: No abnormal FDG uptake. Bilateral photopenic renal cysts. Bowel: No abnormal FDG uptake. Mesentery, Omentum and Peritoneum: No abnormal FDG uptake. Infrarenal IVC filter in place. Fat-containing umbilical hernia. Atherosclerosis. Pelvis Organs: No abnormal FDG uptake. Lymph Nodes: Multiple subcentimeter prominent retroperitoneal and inguinal lymph nodes, for example 2.9 x 0.9 cm left periaortic lymph node (image 235) with SUVmax 1.8. 1.5 x 1.0 cm left inguinal lymph node with SUVmax 1.9 (image 354). MUSCULOSKELETAL/LOWER EXTREMITIES: Mild diffusely increased uptake throughout the marrow of the axial and appendicular skeleton, likely related to medication such as hydroxyurea. Varicose veins of the lower extremities. 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 Also history of prostate cancer s/p prostatectomy.History of polycythemia vera on hydroxyurea. Initial treatment strategy. TECHNIQUE: Radiopharmaceutical: F-18-FDG. Dose: 9.95 mCi. Blood glucose: 153 mg/dL. TECHNIQUE: At 59 minute following IV tracer administration via a rightantecubital vein, positron emission tomography was performed from thevertex of the skull through the toes. Non-contrast low-dose helical CTimaging was performed over the same range without breath-hold forattenuation correction of PET images and anatomic correlation. COMPARISON: CT neck 11/30/2024, CT chest 12/05/2024. FINDINGS: HEAD AND NECK: There are two FDG-avid nodules in the left parotid glanddemonstrating some central photopenia suggestive of necrosis. The superiorlesion measures 1.3 x 1.3 cm (image 82) with SUVmax 12.1. The inferiormedial lesion measures 1.7 x 1.4 cm (image 89) with SUVmax 5.6. Carotidartery calcifications. Status post reconstruction of the left ear withmild uptake, likely inflammatory. CHEST: Ports and devices: None. Lungs: No abnormal FDG uptake. Bibasilar atelectasis. Multiple sub-5 mmnodules better evaluated on recent chest CT scan, which are below sizethreshold for evaluation by PET. Pleura: No abnormal FDG uptake. Lymph Nodes: Multiple enlarged bilateral supraclavicular and mediastinallymph nodes with mild uptake, for example high left axillary lymph nodemeasuring 1.5 x 1.2 cm (image 122) SUVmax 1.7. Left supraclavicular lymphnode measuring 1.1 x 1.0 cm (image 129) with SUVmax 1.8. Mediastinum: No abnormal FDG uptake. Coronary artery calcifications. Breasts/Chest Wall: No abnormal FDG uptake. Bilateral gynecomastia. ABDOMEN/PELVIS: Liver/biliary system: No abnormal FDG uptake. Pancreas: No abnormal FDG uptake. Cholelithiasis. Spleen: No abnormal FDG uptake. Marked splenomegaly measuring 20 cm in theAP dimension. Adrenal Glands: No abnormal FDG uptake. Kidneys: No abnormal FDG uptake. Bilateral photopenic renal cysts. Bowel: No abnormal FDG uptake. Mesentery, Omentum and Peritoneum: No abnormal FDG uptake. Infrarenal IVCfilter in place. Fat-containing umbilical hernia. Atherosclerosis. Pelvis Organs: No abnormal FDG uptake. Lymph Nodes: Multiple subcentimeter prominent retroperitoneal and inguinallymph nodes, for example 2.9 x 0.9 cm left periaortic lymph node ([id number]) with SUVmax 1.8. 1.5 x 1.0 cm left inguinal lymph node with SUVmax1.9 (image 354). MUSCULOSKELETAL/LOWER EXTREMITIES: Mild diffusely increased uptakethroughout the marrow of the axial and appendicular skeleton, likelyrelated to medication such as hydroxyurea. Varicose veins of the lowerextremities. IMPRESSION: 1. Two FDG-avid nodules in the left parotid gland are suspicious formetastatic malignancy. There is no other evidence of FDG-avidmetastases. 2. There is diffuse mild increased FDG uptake throughout the bone marrow,splenomegaly, and scattered mildly FDG-avid mildly enlarged lymph nodeselsewhere above and below the diaphragm which may be related to knownpolycythemia vera. ATTESTATION: IVarun, as teaching physician have reviewedthe images, if any, for this patient's exam, and if necessary, have editedthe report originally created by Etelvina Ruvalcaba. Emily Ney Nur MD, MPH [facility] PET Final Result documented in this encounter Visit Diagnoses Diagnosis Squamous cell carcinoma, scalp/neck- Primary Other malignant neoplasm of scalp and skin of neck Squamous cell carcinoma, scalp/neck Other malignant neoplasm of scalp and skin of neck documented in this encounter Care Teams Street Light Repairer Helper Relationship Specialty Start Date End Date Mariely Vargas MD [address] [place] [address] PCP - General Internal Medicine 03/29/24 Lindsay Perales MD [address] [place] [id number] [email or web address] Radiation Oncology 07/12/24 Libertad Ramos DO [address] [place] [address] [email or web address] Medical Oncology 12/22/24 Maribel Nur MD, MPH [address] [place] [address] [email or web address] Otolaryngology 12/22/24 Kezia Webb MD [address] [place] [address] [email or web address] Dermatology 12/22/24 Lor Bal MD [address] [place] [phone] [email or web address] Internal Medicine 12/22/24 Mynor Coats MD [facility] [address] Dermatology 01/02/25 Eliseo Rand RN [address] [place] [address] [email or web address] Associate Infusion Nurse 01/02/25 Grover Barbosa MD [address] [place] [address] [place] [address] Gas Station Service Attendant Pulmonary Disease 01/05/25 Neville Torres MD [address] [place] [address] Urology 01/27/25 Kya Diaz RN [address] [facility] [address] [place] [address] [email or web address] Associate Infusion Nurse 01/23/25 Maged Lewis [address] [place] [address] [email or web address] Process Engineering Manager 04/13/25 Brennon Delcid MD, MPH [address] [place] [address], ASB1- [address]2 [place] [address] [email or web address] Radiation Oncology 06/02/25 Cathy Schmidt PA-C [address] [place] [address] [place] [address] Physician Photogrammetry Airplane Pilot 06/14/25 documented as of this encounter Additional Source Comments The information contained in this document represents components of the legal health record. It is not the complete legal health record.[facility]
--- OUTSIDE RECORDS SUMMARY | 2025-08-24 09:29 | XMS_ITS | Encounter Summary ---
Author Organization [facility] Address [address] [facility] [address] [place] [address] Phone Care Team Providers Care Campus Receptionist Name Role Phone Mariely Vargas MD Primary Care Provider Lindsay Perales MD Unavailable Richard Eden DO, Justine Unavailable [phone] Maribel Nur MD, MPH Unavailable Kezia Webb MD Unavailable [phone] Lor Bal MD Unavailable [phone] Mynor Coats MD Unavailable Eliseo Rand RN Unavailable Ayaka [email or web address] [facility] Grover Barbosa MD Unavailable Neville Torres MD Unavailable + [phone] Kya Diaz RN Unavailable Naga [email or web address].[facility] Yvonne Lewis Unavailable [phone] Brennon Delcid MD, MPH Unavailable + Cathy Schmidt PA-C Unavailable + Encounter Details Date Type Department Care Team (Late st Contact Info) Description 08/03/2025 Orders Only [facility] [place] Department of Radiation Oncology [address] [facility], Floor L2 [place] [address] Cathy Schmidt PA-C [address] [facility] [place] [address] [email or web address] 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 (Primary Dx); Excessive oral secretions Social History Tobacco Use Types Packs/Day Years [...] st Contact Info) Description 06/21/2025 Procedure Pass [facility] Imaging Department, [facility], [place] [address] [facility], Floor L1 [place] [address] 07/24/2025 Procedure Pass [facility] Imaging Department, [facility], MRI [address] [facility], Floor L1 [place] [address] 08/14/2025 Procedure Pass [facility] Imaging Department, [facility], [place] [address] [facility], Floor L1 [place] [address] 08/24/2025 10:00 AM EDT Appointment [facility] Department of Radiation Oncology [address] [facility], Floor L2 [place] [address] Cathy Schmidt PA-C [address] [place] [address] [place] [address] [email or web address] Brennon Delcid MD, MPH [address] [place] [address], ASB1- L2 [place], [place] [email or web address] 08/31/2025 10:00 AM EDT Office Visit Oral Medicine, [address], [place] [address] Hao Robertson DMD, PhD 75 [place] [address] [email or web address] 09/05/2025 11:00 AM EDT Nutrition Nutrition Department, [address] [address] Zenobia Hebert, HARJINDER 15 [place] [address] 09/07/2025 11:00 AM EDT [facility], [address], [address] [place] [address] Maribel Nur MD, MPH [address] [place] [phone] [email or web address] Shoshana Fernandez, CCC-DEVELOPMENTAL MATHEMATICS INSTRUCTOR [address] [place] [phone] [email or web address] 09/13/2025 9:30 AM EST Blood Draw Laboratory Services, [address], 2nd [place] [address] Libertad Ramos DO [address] [place] [address] [email or web address] 09/13/2025 12:30 PM EST Appointment Erika Lank Imaging Department, [facility], PET/CT 450 [place], [place] Libertad Ramos DO 450 [facility] [place] [address] [email or web address] 09/13/2025 1:40 PM EST Appointment [facility] Imaging Department, [facility] [place], [place] [address] [facility], Floor L1 [place], [place] [phone] Cathy Schmidt PA-C [address] [place] [address] [place] [address] [email or web address] Brennon Delcid MD, MPH [address] [place] [address] [email or web address] [email or web address] 09/13/2025 3:30 PM EST Office Visit [facility], [facility] [address], 11th [place] [address] Brennon Delcid MD, MPH [address] [place] [address] [email or web address] 09/15/2025 8:30 AM EST Office Visit [facility], [facility] [address], [address]th [place] [address] Maribel Nur MD, MPH [address] [place] [address] [email or web address] 09/19/2025 9:20 AM EST Office Visit [facility] [address] [place] [address] Alla Escobar MD [address] [place] [address] 3rd [place] [address] 09/19/2025 10:00 AM EST Telemedicine Center for Melanoma, [address], 5th [place] [address] Libertad Ramos DO [address] [place] [address] [email or web address] 10/26/2025 11:40 AM EST [facility], [facility], MRI [address] [place] [address], Floor L1 [place] [address] Libertad Ramos DO [address] [place] [address] [email or web address] 11/07/2025 10:30 AM EST Blood Draw Laboratory Services, [address], 2nd [place] [address] Darinel Ordaz M.D. Leukemia MD Mike [facility]2057 [place] [address] [email or web address] 11/07/2025 11:30 AM EST Office Visit Center for Leukemia, Division of Hematologic Oncology, [address], 8th [place] [address] Darinel Ordaz M.D. 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 Voriconazole LOVE METHOD <=0.12: Susceptible Comment: Ctahy Schmidt PA-C MICROBIOLOGY - GEN ERAL ORDERABLES Final Result Performing Organization Address City/State/[facility] Co de Phone Number [facility] [address] [place] [phone] [place] [address] [address] [place] [address] documented in this encounter Visit Diagnoses Diagnosis 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 Medical Oncology 12/22/24 Maribel Nur MD, MPH [address] [place] [address] [place] [address] [email or web address] Otolaryngology 12/22/24 Kezia Webb MD [address] [place] [address] [email or web address] Dermatology 12/22/24 Lor Bal MD [address] [place] [phone] Wendy [email or web address]@[email or web address] Internal Medicine 12/22/24 Mynor Coats MD [address] [address] Dermatology 01/02/25 Eliseo Rand RN 450 [place], [place] Zoe@[email or web address] Associate Infusion Nurse 01/02/25 Grover Barbosa MD [address] [place] [address] [place] [address] Venereal Disease Control Head Pulmonary Disease 01/05/25 Neville Torres MD [address] [address] Urology 01/27/25 Kya Diaz, PHILIPPE [address] [address] [email or web address] Associate Infusion Nurse 01/23/[address] [place] [address] [email or web address] .[facility] Industrial Machine Assembler 04/13/25 Brennon Delcid MD, MPH [address] [place] [address], ASB1- L2 [place] [address] [email or web address] Radiation Oncology 06/02/25 Cathy Schmidt PA-C [address] [place] [address] [place] [address] [email or web address] Physician Slot Shift Supervisor 06/14/25 documented as of this encounter Additional Source Comments The information contained in this document represents components of the legal health record. It is not the complete legal health record.[facility]
--- OUTSIDE RECORDS SUMMARY | 2025-08-24 09:29 | XMS_ITS | Encounter Summary ---
Author Organization [facility] Address [address] [facility] [address] [place] [address] Phone Care Team Providers Care Quarantine Officer Name Role Phone Mariely Vargas MD Primary Care Provider Lindsay Perales MD Unavailable Richard Eden DO, Justine Unavailable [phone] Maribel Nur MD, MPH Unavailable Kezia Webb MD Unavailable [phone] Lor Bal MD Unavailable [phone] Mynor Coats MD Unavailable Eliseo Rand RN Unavailable Ayaka Grier@[email or web address] [employer].[facility] Grover Barbosa MD Unavailable Neville Torres MD Unavailable + [phone] Kya Diaz RN Unavailable Naga Raygoza@[email or web address] HERBERT.[facility] Yvonne Lewis Unavailable [phone] Brennon Delcid MD, MPH Unavailable + Cathy Schmidt PA-C Unavailable + Encounter Details Date Type Department Care Team (Late st Contact Info) Description 07/20/2025 Orders Only [facility] [place] Department of Radiation Oncology [address] [facility], Floor L2 [place] [address] Cathy Schmidt PA-C [address] [facility] [place] [address] [email or web address] Social History Tobacco Use Types Packs/Day Years [...] st Contact Info) Description 06/21/2025 Procedure Pass [facility] Imaging Department, [facility], [place] [address] [facility], Floor L1 [place] [address] 07/24/2025 Procedure Pass [facility] Imaging Department, [facility], MRI [address] [facility], Floor L1 [place] [address] 08/14/2025 Procedure Pass [facility] Imaging Department, [facility], [place] [address] [facility], Floor L1 [place] [address] 08/24/2025 10:00 AM EDT Appointment [facility] Department of Radiation Oncology [address] [facility], Floor L2 [place] [address] Cathy Schmidt PA-C [address] [place] [address] [place] [address] [email or web address] Brennon Delcid MD, MPH [address] [place] [address], ASB1- L2 [place] [address] [email or web address] 08/31/2025 10:00 AM EDT Office Visit Oral Medicine, [address], 11[place] [address] Hao Robertson DMD, PhD 75 [place] [address] [email or web address] 09/05/2025 11:00 AM EDT Nutrition Nutrition Department, [address] [address] Zenobia Hebert LDN 15 [place] [address] [email or web address] 09/07/2025 11:00 AM EDT [facility], [address], [address] [place] [address] Maribel Nur MD, MPH [address] [place] [address] Loida@[facility] Shoshana Fernandez, CCC-DUST COLLECTOR [address] [place] [phone] [email or web address] 09/13/2025 9:30 AM EST Blood Draw Laboratory Services, [address], 2nd [place] [address] Libertad Ramos DO [address] [place] [address] [email or web address] 09/13/2025 12:30 PM EST Appointment Erika Lank Imaging Department, [facility], PET/CT [address] [place] [address] Libertad Ramos DO 450 [place] [address] [email or web address] 09/13/2025 1:40 PM EST Appointment [facility] Imaging Department, [facility], [place] [address] [facility], Floor L1 [place], [place] [phone] Cathy Schmidt PA-C [address] [place] [address] [place] [address] [email or web address] Brennon Delcid MD, MPH [address] [place] [address] [email or web address] 09/13/2025 3:30 PM EST Office Visit [facility], [address], 11th [place] [address] Brennon Delcid MD, MPH [address] [place] [address] [email or web address] [email or web address] 09/15/2025 8:30 AM EST Office Visit [facility], [facility] Cancer [address], 11th [place] [address] Maribel Nur MD, MPH [address] [place] [address] [email or web address]@[facility] 09/19/2025 9:20 AM EST Office Visit [facility] [address] [place] [address] Alla Escobar MD [address] [place] [address] 3rd [place] [address] 09/19/2025 10:00 AM EST Telemedicine Center for Melanoma, [address], 5th [place] [address] Libertad Ramos DO [address] [place] [address] [email or web address] 10/26/2025 11:40 AM EST Appointment Erika Lank Imaging Department, [facility], MRI [address] [place] [address], Floor L1 [place] [address] Libertad Ramos DO [address] [place] [address] [email or web address] 11/07/2025 10:30 AM EST Blood Draw Laboratory Services, [address], 2nd [place] [address] Darinel Ordaz M.D. Leukemia MD Mike [address] [place], [place] [phone] [place] [address] Elena@[facility] 11/07/2025 11:30 AM EST Office Visit Center for Leukemia, Division of Hematologic Oncology, [address], 8th [place] [address] Darinel Ordaz M.D. Leukemia MD Mike [address] [place], [place] [phone] [place] [address] [email or web address] documented as of this encounter Visit Diagnoses Not on filedocumented in this encounter Care Teams Quarantine Officer Relationship Specialty Start Date End Date Mariely Vargas MD [address] [address] PCP - General Internal Medicine 03/29/24 Lindsay Perales MD 271 [place] [address] [email or web address] Radiation Oncology 07/12/24 Libertad Ramos DO [address] [place] [address] [email or web address] Medical Oncology 12/22/24 Maribel Nur MD, MPH [address] [place] [address] Loida@[facility] Otolaryngology 12/22/24 Kezia Webb MD [address] [place] [address] [email or web address] Dermatology 12/22/24 Lor Bal MD [address] [place] [phone] Wendy [email or web address]@[email or web address] Internal Medicine 12/22/24 Mynor Coats MD [address] [address] Dermatology 01/02/25 Eliseo Rand, PHILIPPE 450 [place] [address] Zoe@[email or web address] Associate Infusion Nurse 01/02/25 Grover Barbosa MD [address] [place] [address] [place] [address] Molding Supervisor Pulmonary Disease 01/05/25 Neville Torres MD [address] [address] [email or web address] Urology 01/27/25 Kya Diaz RN [address] [address] [email or web address] Associate Infusion Nurse 01/23/25 Yvonne Lewis [address] [place] [address] [email or web address] 04/13/25 Brennon Delcid MD, MPH [address] [place], [place] [address]- [address] [address] [email or web address] Radiation Oncology 06/02/25 Cathy Schmidt PA-C [address] [place] [address] [place] [address] [email or web address] Physician Awning Installer 06/14/25 documented as of this encounter Additional Source Comments The information contained in this document represents components of the legal health record. It is not the complete legal health record.[facility]
--- OUTSIDE RECORDS SUMMARY | 2025-08-24 09:29 | XMS_ITS | Encounter Summary ---
Author Organization [facility] Address [address] [facility] [address] [place] [address] Phone Care Team Providers Care Golf Coach Name Role Phone Mariely Vargas MD Primary Care Provider Lindsay Perales MD Unavailable Richard Eden DO, Justine Unavailable [phone] Maribel Nur MD, MPH Unavailable Kezia Webb MD Unavailable [phone] Lor Bal MD Unavailable [phone] Mynor Coats MD Unavailable Eliseo Rand RN Unavailable Ayaka [email or web address].[email or web address] Grover Barbosa MD Unavailable Neville Torres MD Unavailable + [phone] Kya Diaz RN Unavailable Naga [email or web address] Yvonne Lewis Unavailable [phone] Brennon Delcid MD, MPH Unavailable + Cathy Schmidt PA-C Unavailable + Encounter Details Date Type Department Care Team (Late st Contact Info) Description 11/23/2024 Procedure Pass [facility], Ct Scan - [address] [address] Social History Tobacco Use Types Packs/Day Years [...] Info) Description 06/21/2025 Procedure Pass [facility] Imaging Department, [facility], [place] [address] [facility], Floor L1 [place] [address] 07/24/2025 Procedure Pass [facility] Imaging Department, [facility], MRI [address] [facility], Floor L1 [place] [address] 08/14/2025 Procedure Pass [facility] Imaging Department, [facility], [place] [address] [facility], Floor L1 [place] [address] 08/24/2025 10:00 AM EDT Appointment [facility] Department of Radiation Oncology [address] [facility], Floor L2 [place] [address] Cathy Schmidt PA-C [address] [place] [address] [place] [address] Brennon Delcid MD, MPH [address] [place] [address], ASB1- L2 [place] [address] [email or web address] 08/31/2025 10:00 AM EDT Office Visit Oral Medicine, [address], 11th [place] [address] Hao Robertson DMD, PhD [address] [place] [address] [email or web address] 09/05/2025 11:00 AM EDT Nutrition Nutrition Department, [address] [address] Zenobia Hebert LDN 15 [place] [address] 09/07/2025 11:00 AM EDT Treatment [facility], [address], 11th [place], [place] [phone] Maribel Nur MD, MPH 45 [place], [place] Loida@[email or web address] Shoshana Fernandez, [facility]-BOILERMAKER APPRENTICE [address] [place] [phone] [email or web address]. [email or web address] 09/13/2025 9:30 AM EST Blood Draw Laboratory Services, [address], 2nd Floor [place], [place] Libertad Ramos V, DO [address] [place] [address] [email or web address] 09/13/2025 12:30 PM EST [facility]ment [facility], [facility], PET/CT 450 [place], [place] Libertad Ramos V, DO [address] [place] [address] [email or web address] 09/13/2025 1:40 PM EST [facility]ment [facility], [facility], [place] [address] [facility], Floor L1 [place] [address] Cathy Schmidt PA-C [address] [place], [place] [address]am [place] [address] Brennon Delcid MD, MPH [address] [facility], ASB1- L2 [place] [address] [email or web address] 09/13/2025 3:30 PM EST Office Visit Center for Head and Neck Oncology, [facility] Cancer [address], 11th [place] [address] Brennon Delcid MD, MPH [address] [facility], [facility]- [address] [address] [email or web address] 09/15/2025 8:30 AM EST Office Visit [facility] On[facility], [facility] Cancer [address], 11th [place] [address] Maribel Nur MD, MPH [address] [place] [address] [email or web address]@[email or web address] 09/19/2025 9:20 AM EST Office Visit [facility] [address] [place] [address] Alla Escobar MD [address] [place] [address] 3rd [place] [address] 09/19/2025 10:00 AM EST Telemedicine Center for Melanoma, [address], 5th [place] [address] Libertad Ramos DO [address] [place] [address] [email or web address] 10/26/2025 11:40 AM EST Appointment Erika [facility] Imaging Department, [facility], MRI [address] [place] [address], Floor L1 [place] [address] Libertad Ramos DO [address] [place] [address] [email or web address] 11/07/2025 10:30 AM EST Blood Draw Laboratory Services, [facility] 450 [facility], 2nd [place] [address] Darinel Ordaz M.D. Leukemia MD Mike [address] [place], [place] [address] [place] [phone] [email or web address]@[facility] 11/07/2025 11:30 AM EST Office Visit Center for Leukemia, Division of Hematologic Oncology, [address], 8th [place] [address] Darinel Ordaz M.D. Leukemia MD Mike [address] [place], [place] [address] [place] [address] [email or web address]@[email or web address] documented as of this encounter Visit Diagnoses Not on filedocumented in this encounter Care Teams Golf Coach Relationship Specialty Start Date End Date Mariely Vargas MD [address] [place] [address] PCP - General Internal Medicine 03/29/24 Lindsay Perales MD [address] [place] [address] [email or web address] Radiation Oncology 07/12/24 Libertad Ramos DO [address] [place] [address] [email or web address] Medical Oncology 12/22/24 Maribel Nur MD, MPH [address] [place] [address] [place] [address] [email or web address]@[email or web address] Otolaryngology 12/22/24 Kezia Webb MD [address] [place] [address] [email or web address] Dermatology 12/22/24 Lor Bal MD [address] [place] [phone] Wendy Chavarria@[email or web address] Internal Medicine 12/22/24 Mynor Coats MD [address] [address] Dermatology 01/02/25 Eliseo Rand RN 450 [place] [address] [email or web address] Associate Infusion Nurse 01/02/25 Grover Barbosa MD [address] [place] [address] [place] [address] Medication Tech Pulmonary Disease 01/05/25 Neville Torres MD [address] [address] [email or web address] Urology 01/27/25 Kya Diaz RN [address] [address] [email or web address] Associate Infusion Nurse 01/23/25 Yvonne Lewis 50 [place] [address] [email or web address] Glass Driller 04/13/25 Brennon Delcid MD, MPH [address] [place] [address], ASB1- L2 [place] [address] [email or web address] Radiation Oncology 06/02/25 Cathy Schmidt PA-C [address] [place] [address] [place] [address] [email or web address] Physician Battery Tester 06/14/25 documented as of this encounter Additional Source Comments The information contained in this document represents components of the legal health record. It is not the complete legal health record.[facility]
--- OUTSIDE RECORDS SUMMARY | 2025-08-24 09:29 | XMS_ITS | Encounter Summary ---
Author Organization [facility] Address [address] [facility] [address] [place] [address] Phone Care Team Providers Care Save All Operator Name Role Phone Mariely Vargas MD Primary Care Provider Lindsay Perales MD Unavailable Richard Eden DO, Justine Unavailable [phone] Maribel Nur MD, MPH Unavailable Kezia Webb MD Unavailable [phone] Lor Bal MD Unavailable [phone] Mynor Coats MD Unavailable Eliseo Rand RN Unavailable Ayaka Grier@[email or web address] Grover Barbosa MD Unavailable Neville Torres MD Unavailable + [phone] Kya Diaz RN Unavailable Naga Raygoza@[email or web address]ENTERBlue HERBERT.[facility] Yvonne Lewis Unavailable [phone] Brennon Delcid MD, MPH Unavailable + Cathy Schmidt PA-C Unavailable + Encounter Details Date Type Department Care Team (Late st Contact Info) Description 12/02/2024 Procedure Pass Erika [facility] Imaging Department, [facility] Cancer [place], [place] [address] [facility], Floor L1 [place] [address] Social History Tobacco Use Types Packs/Day Years [...] Upcoming Encounters Date Type Department Care Team (Marcelo todd Contact Info) Description 06/21/2025 Procedure Pass [facility] Imaging Department, [facility], [place] [address] [facility], Floor L1 [place] [address] 07/24/2025 Procedure Pass [facility] Imaging Department, [facility], MRI [address] [facility], Floor L1 [place] [address] 08/14/2025 Procedure Pass [facility] Imaging Department, [facility], [place] [address] [facility], Floor L1 [place] [address] 08/24/2025 10:00 AM EDT Appointment [facility] Department of Radiation Oncology [address] [facility], Floor L2 [place] [address] Cathy Schmidt PA-C 75 [facility] [place] [address] [email or web address] Brennon Delcid MD, MPH 75 [facility], ASB1- L2 [place] [address] [email or web address] 08/31/2025 10:00 AM EDT Office Visit Oral Medicine, [address], 11th [place] [address] Hao Robertson DMD, PhD 75 [place] [address] [email or web address] 09/05/2025 11:00 AM EDT Nutrition Nutrition Department, [address] [address] Zenobia Hebert LDN 15 [place] [address] 09/07/2025 11:00 AM EDT Treatment [facility] Oncology, [facility] [address] [facility], 11th [place], [place] [phone] Maribel Nur MD, MPH 45 [place], [place] Loida@[email or web address] Shoshana Fernandez, [facility]-INTERNET TECHNOLOGY MANAGER 20 [place] [phone] [email or web address]. [email or web address] 09/13/2025 9:30 AM EST Blood Draw Laboratory Services, [address], 2nd Floor [place], [place] Libertad Ramos DO 450 [place], [place] [email or web address] 09/13/2025 12:30 PM EST Appointment Erika [facility] Imaging Department, [facility], PET/CT 450 [place], [place] Libertad Ramos V DO [address] [place] [address] [email or web address] 09/13/2025 1:40 PM EST Appointment Erika [facility] Imaging Department, [facility], [place] [address] [facility], Floor L1 [place], [place] [phone] Cathy Schmidt PA-C [address] [place] [address] and [place] Brennon Delcid MD, MPH [address] [facility], ASB1- L2 [place], [place] Richard@[email or web address] 09/13/2025 3:30 PM EST Office Visit Center for Head [facility] Neck Oncology, [facility] Cancer [address], 11th [place] [address] Brennon Delcid MD, MPH [address] [place] [address], [facility] [address] [email or web address] 09/15/2025 8:30 AM EST Office Visit [facility] Oncology, [facility] Cancer [address], 11th [place] [address] Maribel Nur MD, MPH [address] [place] [address] [email or web address]@[email or web address] 09/19/2025 9:20 AM EST Office Visit [facility] [address] [place] [address] Alla Escobar MD [address] [place] [address] 3rd [place] [address] 09/19/2025 10:00 AM EST Telemedicine Center for Melanoma, [address], 5th [place] [address] Libertad Ramos DO 450 [place] [address] [email or web address] 10/26/2025 11:40 AM EST Appointment Erika [facility] Imaging Department, [facility], MRI [address] [place] [address], Floor L1 [place] [address] Libertad Ramos DO [address] [place] [address] [email or web address] 11/07/2025 10:30 AM EST Blood Draw Laboratory Services, [facility] [address] [facility], 2nd [place] [address] Darinel Ordaz M.D. Leukemia MD Mike [address] [place], [place] [address] [place] [address] Elena@[facility] 11/07/2025 11:30 AM EST Office Visit Center for Leukemia, Division of Hematologic Oncology, [address], 8th [place] [address] Darinel Ordaz M.D. Leukemia MD Mike [address] [place], [place] [address] [place] [phone] Elena@[email or web address] documented as of this encounter Visit Diagnoses Not on filedocumented in this encounter Care Teams Save All Operator Relationship Specialty Start Date End Date Mariely Vargas MD [address] [place] [address] PCP - General Internal Medicine 03/29/24 Lindsay Perales MD [address] [place] [address] [email or web address] Radiation Oncology 07/12/24 Libertad Ramos DO [address] [place] [address] [email or web address] Medical Oncology 12/22/24 Maribel Nur MD, MPH [address] [place] [address] [place] [address] [email or web address] Otolaryngology 12/22/24 Kezia Webb MD [address] [place] [address] [email or web address] Dermatology 12/22/24 Lor Bal MD [address] [place] [phone] Wendy Chavarria@[email or web address] Internal Medicine 12/22/24 Mynor Coats MD [facility] [address] Dermatology 01/02/25 Eliseo Rand RN 450 [place] [address] [email or web address] Associate Infusion Nurse 01/02/25 Grover Barbosa MD [address] [place] [address] [place] [address] Manager Bakery Pulmonary Disease 01/05/25 Neville Torres MD [address] [place] [address] Urology 01/27/25 Kya Diaz RN [address] [address] Silvia@[email or web address] Associate Infusion Nurse 01/23/25 Yvonne Lewis [address] [place] [address] [email or web address] Diversity Specialist 04/13/25 Brennon Delcid MD, MPH [address] [place] [address], ASB1- L2 [place] [address] [email or web address] Radiation Oncology 06/02/25 Cathy Schmidt PA-C [address] [place] [address] [place] [address] [email or web address] Physician Personnel And Payroll Technician 06/14/25 documented as of this encounter Additional Source Comments The information contained in this document represents components of the legal health record. It is not the complete legal health record.[facility]
== END 2025-08-24 09:27 | disposition home or self-care (01) ==
LOC: HO.HPS 08:40
PROVIDERS: PCP Hospitalist; Visit Provider Hospitalist
DX: J98.4 Other disorders of lung (principal); R91.1 Solitary pulmonary nodule; G47.33 Obstructive sleep apnea (adult) (pediatric); Z99.89 Dependence on other enabling machines and devices; J30.9 Allergic rhinitis, unspecified; R05.3 Chronic cough; C44.229 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 and external auricular canal; J18.9 Pneumonia, unspecified organism
CPT/HCPCS: 99215; G2211

== ENCOUNTER 2025-08-24 08:39 | Outpatient (REF) | payer MEDICARE, SELFPAY ==
--- OUTSIDE RECORDS SUMMARY | 2025-08-24 11:10 | XMS_ITS | Clinical Summary ---
Author Organization [facility] Address [address] [place] [address] Care Team Providers Care Circuit Breaker Mechanic Name Role Phone Mariely Vargas MD Primary Care Provider Unavailab le Allergies Active Allergy Reactions Severity Noted Date Comments Ciprofloxacin 12/02/2017 Penicillins 12/02/2017 Medications Medication Sig Dispensed Refills Start Date End Date Status allopurinol (ZYLOPRIM) 100 MG tablet Take 100 mg by mouth daily. 0 Active aspirin EC 81 MG EC tablet Take 81 mg by mouth daily. 0 Active hydroxyurea (HYDREA) 500 MG capsule Take 3 Caps by mouth daily. 0 Active levothyroxine (SYNTHROID, LEVOTHROID) 25 MCG tablet Take 25 mcg by mouth daily. 0 Active omeprazole (PRILOSEC) 20 MG capsule Take 20 mg by mouth daily. 0 Active Sodium Phosphates (SALINE LAXATIVE OR) Take 2 Sprays by mouth every 2 hours as needed. 0 Active Ascorbic Acid (VITAMIN C) 500 MG tablet Take 500 mg by mouth daily. 0 Active sodium chloride (OCEAN) 0.65 % nasal spray by Nasal route every 2 hours as needed. 2 drops 0 Active CPAP Historical (HISTORICAL CPAP) Inhale into the lungs. [employer] pressure 0 Active azelastine (ASTELIN) 0.1 % nasal spray NSTILL 2 SPRAYS IN EACH NOSTRIL ONCE DAILY 3 Bottle 3 09/14/2018 Active ipratropium (ATROVENT) 0.06 % nasal spray 2 Sprays by Nasal route 4 times daily. 15 mL 3 02/18/2019 Active Active Problems Problem Noted Date Hypothyroid 01/18/2018 Obstructive sleep apnea syndrome 018 Overview: CPAP Chronic rhinitis 12/29/2017 Pulmonary nodules 12/29/2017 History of prostate cancer 12/29/2017 Polycythemia vera 12/29/2017 Irritable bowel syndrome 12/29/2017 Nephrolithiasis 12/29/2017 Skin cancer of nose 12/29/2017 Overview: Type of cancer not indicated, removed 09/2013 Kidney disease 12/29/2017 History of blood clots 04/23/2017 Immunizations Name Administration Dates Next Due Influenza (> 6 Months) 09/11/2016 Influenza vaccine high dose age 65 and over 08/09 Social History Tobacco Use Types Packs/Day Years Used Date Smoking Tobacco: Never Smokeless Tobacco: Never Alcohol Use Standard Drinks/Week Comments Yes 0 (1 standard drink = 0.6 oz pur e alcohol) occ Sex Assigned at Date Recorded Not on file Last Filed Vital Signs Vital Sign Reading Time Taken Comments Blood Pressure 120/72 02/18/2019 9:35 AM EDT Pulse 71 02/18/2019 9:35 AM EDT Temperature - - Respiratory Rate 18 02/18/2019 9:35 AM EDT Oxygen Saturation 98% 02/18/2019 9:35 AM EDT Inhaled Oxygen Concentration - - Weight 95.3 kg (210 lb) 02/18/2019 9:35 AM EDT Height 177.8 cm (5' 10 ) 02/18/2019 9:35 AM EDT Body Mass Index 30.13 02/18/2019 9:35 AM EDT Plan of Treatment Health Maintenance Due Date Last Done Comments Covid-19 Vaccine (#1) 05/14/1951 DEPRESSION SCREEN 1963 HEPATITIS C SCREENING 1969 DTAP/TDAP/TD (1 - Tdap) 1970 CHOLESTEROL SCREENING 1971 COLON CANCER SCREENING 2001 SHINGLES VACCINE (1 of 2) 2001 FALL RISK ASSESSMENT 2016 PNEUMOCOCCAL VACCINE (1 - PCV) 2016 BMI CHECK/ADVISE 11/09/2024 INFLUENZA (#1) 2025 08/23/2018, 09/11/2016 Care Teams Circuit Breaker Mechanic Relationship Specialty Start Date End Date Mariely Vargas MD PCP - General Internal Medicine 03/27/23
--- OUTSIDE RECORDS SUMMARY | 2025-08-24 11:10 | XMS_ITS | Encounter Summary ---
Author Organization [facility] Address [address] [place] [address] Care Team Providers Care Service Representative Name Role Phone Juan Manuel Green MD Primary Care Provider Grover Be MD Primary Care Provider Mariely Rivero MD Primary Care Provider Madelyn le Encounter Details Date Type Department Care Team Description 03/06/2019 Orders Only Pulmonology - [address] [place] [address] Grover Barbosa MD Social History Tobacco Use Types Packs/Day Years Used Date Smoking Tobacco: Never Smokeless Tobacco: Never Alcohol Use Standard Drinks/Week Comments Yes 0 (1 standard drink = 0.6 oz pur e alcohol) occ Sex Assigned at Date Recorded Not on file documented as of this encounter Plan of Treatment Not on file documented as of this encounter Visit Diagnoses Not on filedocumented in this encounter Care Teams Service Representative Relationship Specialty Start Date End Date Juan Manuel Green MD PCP - General Oncology/Hematology 02/18/19 10/11/20 Grover Barbosa MD PCP - General 10/12/20 03/26/23 Mariely Vargas MD PCP - General Internal Medicine 03/27/23 documented as of this encounter
== END 2025-08-24 08:40 | disposition home or self-care (01) ==
LOC: HO.LNP 08:39
PROVIDERS: PCP Hospitalist; Visit Provider Hospitalist
DX: J98.4 Other disorders of lung (principal); R91.1 Solitary pulmonary nodule; G47.33 Obstructive sleep apnea (adult) (pediatric); J30.9 Allergic rhinitis, unspecified; R05.3 Chronic cough; C44.229 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 and external auricular canal; J18.9 Pneumonia, unspecified organism; Z99.89 Dependence on other enabling machines and devices
CPT/HCPCS: 87070; 87205; 99212

== ENCOUNTER 2025-09-12 09:26 | Outpatient (REF) | payer MEDICARE, SELFPAY ==
--- OUTSIDE RECORDS SUMMARY | 2025-02-21 06:15 | XMS_ITS ---
Author Organization [facility] Address [address] [address] Care Team Providers Care Design Engineering Intern Name Role Phone TROY LOBO Primary Care Provider [phone] Elsa Talamantes [phone] REASON FOR VISIT Milvia D/C 02/05/25 Encounters Encounter Location Date Provider Diagnosis [facility] [address] [address] 02/21/2025 Elsa Talamantes Plan Of Treatment Next Appt Details Provider Name:TROY LOBO , 03/05/2026 10:30:00 AM, [address] [place] [address], [place], [address], Progress Notes * Clay JOHNSONDOB:1950 ([age] yo M)Acc No.[id number]:02/21/2025 Patient: Clay STANTON Appointment Provider: Jake Talamantes :1950 A ge:74 Y S ex:Male Date:02/21/2025 Address:[address] [place] [address] Pcp:TROY LOBO Subjective: * Chief Complaints: * 1 . [facility] D/C 02/05/25. * Medical History: Objective: * Vitals: Assessment: Plan: * Treatment: * Images: * Electronic signature of Honorio Talamantes PA-C on 09/12/2025 at 10:30 AM EST Sign off status: Pending * Appointment Provider: Jake Talamantes Date: 0 02/21/2025 Generated for Annie navas/Casandra/Ronda on: 1 11/12/2024 10:30 AM EST
--- NOTE | ~2025-09-12 | CT_ITS ---
EXAMINATION: CT CHEST WITHOUT IV CONTRAST INDICATION: J18.9 - Pneumonia, unspecified organism. COMPARISON: Previous chest CT most recent April 2024. TECHNIQUE: Helical CT scan of the chest was performed without intravenous contrast. Coronal and sagittal reformatted images were generated and reviewed. This CT exam was performed with one or more of the following dose reduction techniques: automated exposure control, adjustment of the mA and/or kV according to patient size, use of iterative reconstruction technique. DLP: 173 mGy-cm CHEST: THYROID: The thyroid is unremarkable. LUNGS: Biapical pleural and parenchymal scarring. A 3 mm semisolid right upper lobe apical nodule axial image 23 series 7, stable. Question 6 mm right upper lobe perivascular nodule vs prominent vessel axial image 41 series 7, stable. A 4 mm right middle lobe nodule axial image 89 series 7, stable. A right middle lobe nodule axial image 81 series 7, stable. A 3 mm right middle lobe nodule axial image 112 series 7, stable. A 6 mm triangular-shaped right lower lobe nodule axial image 365 series 9, stable. A 9 mm peripheral or subpleural right lower lobe nodule adjacent to the diaphragmatic pleural surface axial image 396 series 9. This measured 7 mm on December [address] This is difficult to visualize on most recent April 2024 exam. Small 2 mm peripheral or subpleural right lower lobe nodules for example axial image 118 series 7, stable. Chronic scarring or subsegmental atelectasis in the posterior basal segment of the right lower lobe similar to previous exam. New bronchial wall thickening, increased attenuation and linear scarring or subsegmental atelectasis in the posterior lateral basal left lower lobe, probably infectious or inflammatory. Central airways are clear. MEDIASTINUM: Stable prominent posterior mediastinal lymph node measuring 1.2 cm in short axis posterior to the esophagus. Other smaller mediastinal lymph nodes, stable. SHAYY: Evaluation of the hilar regions is limited by lack of intravenous contrast material. CARDIOVASCULATURE: The heart is normal in size. There is no pericardial effusion. The thoracic aorta is normal in caliber. Moderate aortic valve calcification. DEGREE OF CORONARY CALCIFICATION: Moderate. PLEURA: There is no pleural effusion. No pneumothorax. MAIN AIRWAYS: The mainstem bronchi and proximal branches are patent. AXILLA: There are small bilateral axillary lymph nodes. Bilateral symmetric gynecomastia. BONES AND SOFT TISSUES: Degenerative changes. UPPER ABDOMEN: Enlarged spleen. Gallstones. Stable low-attenuation liver lesion high in the dome of the liver measuring [address]/CT chest wo IV con IMPRESSION: New scarring or atelectasis in the posterior lateral basal left lower lobe, increased attenuation and bronchial wall thickening. This probably represents an infectious or inflammatory process. Stable appearing chronic scarring or subsegmental atelectasis in the posterior basal right lower lobe. Question slight interval increase in peripheral or subpleural 9 mm nodules right lower lobe nodule adjacent to the diaphragmatic pleural surface. Otherwise right pulmonary nodules are stable. Stable prominent posterior mediastinal lymph node posterior to the mid thoracic esophagus. Stable abdominal findings. Electronically signed by: Altagracia Quintanilla MD 09/12/2025 11:46 AM EST
--- OUTSIDE RECORDS SUMMARY | 2025-09-12 10:28 | XMS_ITS | Encounter Summary ---
Author Organization [facility] Address [address] [employer] [address] [place] [address] Phone Care Team Providers Care Planning Consultant Name Role Phone Mariely Vargas MD Primary Care Provider Lindsay Perales MD Unavailable Richard Eden DO, Justine Unavailable [phone] Maribel Nur MD, MPH Unavailable Kezia Webb MD Unavailable [phone] Lor Bal MD Unavailable [phone] Mynor Coats MD Unavailable Eliseo Rand RN Unavailable Ayaka [email or web address].[facility] Grover Barbosa MD Unavailable [phone] Neville Torres MD Unavailable + [phone] Kya Diaz RN Unavailable Naga [email or web address].[facility] Yvonne Lewis Unavailable [phone] Brennon Delcid MD, MPH Unavailable + Cathy Schmidt PA-C Unavailable + Encounter Details Date Type Department Care Team (Late st Contact Info) Description 03/29/2025 Procedure Pass [facility] Periop [address] [place] [address] Social History Tobacco Use Types Packs/Day Years [...] 5:56 PM EDT Malgorzata Sneed, PHILIPPE * [place] Suicide Severity Rating Scale (Screener/Recent Self-Report) Question [...] Info) Description 06/21/2025 Procedure Pass [facility] Imaging Department, [facility], [place] [address] [facility], Floor L1 [place] [address] 07/24/2025 Procedure Pass [facility] Imaging Department, [facility], MRI [address] [facility], Floor L1 [place] [address] 09/13/2025 9:30 AM EST Blood Draw [facility] Imaging Department, [facility], Imaging Cejrd-ky-Qreq [address] [facility], Floor L1 [place] [address] Libertad Ramos DO 450 [place] [address] [email or web address] 09/13/2025 12:30 PM EST Appointment [facility] Imaging Department, [facility], PET/CT 450 [place], [place] Libertad Ramos DO 450 [place] [address] [email or web address] 09/13/2025 1:40 PM EST Appointment [facility] Imaging Department, [facility], [place] [address] [facility], Floor L1 [place] [address] Cathy Schmidt PA-C [address] [place] [address] [place] [address] Brennon Delcid MD, MPH [address] [place] [address] [email or web address] 09/13/2025 3:30 PM EST Office Visit [facility], [facility] [address] [facility], [address] [place] [address] Brennon Delcid MD, MPH [address] [place] [address] [email or web address] 09/15/2025 8:30 AM EST Office Visit [facility], [address], [address]th [place] [address] Maribel Nur MD, MPH [address] [place] [address] [email or web address]@[email or web address] 09/19/2025 10:00 AM EST Telemedicine [facility], [address], 5th [place] [address] Libertad Ramos V, DO [address] [place] [address] [email or web address] 10/04/2025 1:20 PM EST Office Visit [facility] [address] [place] [address] Alla Escobar MD [address] [place] [address] 3rd [place] [address] 10/26/2025 11:40 AM EST Appointment [facility] Imaging Department, [facility], MRI [address] [place] [address], Floor L1 [place] [address] Libertad Ramos V, DO [address] [place] [address] [email or web address] 11/07/2025 10:30 AM EST Blood Draw Laboratory Services, [address], 2nd [place] [address] Darinel Ordaz M.D. [facility]emia [facility] [address] [place] [address] [place] [address] [email or web address] 11/07/2025 11:30 AM EST Office Visit [facility], Division of Hematologic Oncology, [address], 8th [place] [address] Darinel Ordaz M.D. Leukemia [facility] [address] [place] [address] [email or web address] 11/30/2025 11:00 AM EST Office Visit Oral Medicine, [facility] [place] [address] [facility], 11th [place] [address] Hao Robertson, DMD, PhD [address] [place] [address] [email or web address] documented as of this encounter Visit Diagnoses Not on filedocumented in this encounter Care Teams Planning Consultant Relationship Specialty Start Date End Date Mariely Vargas MD [address] [address] PCP - General Internal Medicine 03/29/24 Lindsay Perales MD [address] [place] [address] [email or web address] Radiation Oncology 07/12/24 Libertad Ramos DO [address] [place] [address] [email or web address] Medical Oncology 12/22/24 Maribel Nur MD, MPH [address] [place] [address] [email or web address]@[email or web address] Otolaryngology 12/22/24 Kezia Webb MD [address] [place] [address] [email or web address] Dermatology 12/22/24 Lor Bal MD [address] [place] [phone] Wendy Chavarria@[email or web address] Internal Medicine 12/22/24 Mynor Coats MD [address] [address] Dermatology 01/02/25 Eliseo Rand, PHILIPPE [address] [place] [address] [email or web address] Associate Infusion Nurse 01/02/25 Grover Barbosa MD [address] [place] [address] [place] [address] Remote Encoding Center Manager Pulmonary Disease 01/05/25 Neville Torres MD [address] [address] [email or web address] Urology 01/27/25 Kya Diaz, PHILIPPE [address] [address] [email or web address] Associate Infusion Nurse 01/23/25 Yvonne Lewis [address] [place] [address] [email or web address] Polymerization Kettle Operator 04/13/25 Brennon Delcid MD, MPH [address] [place] [address], [facility] [address] [address] [email or web address] Radiation Oncology 06/02/25 Cathy Schmidt PA-C [address] [place] [address] and [place] [address] [email or web address] Physician Dentist/Owner 06/14/25 documented as of this encounter Additional Source Comments The information contained in this document represents components of the legal health record. It is not the complete legal health record.[facility]
--- OUTSIDE RECORDS SUMMARY | 2025-09-12 10:28 | XMS_ITS | Encounter Summary ---
Author Organization [facility] Address [address] [place] [address] Care Team Providers Care Children'S Nursery Assistant Name Role Phone Mariely Vargas MD Primary Care Provider [phone] Encounter Details Date Type Department Care Team (Late Contact Info) Description 09/23/2024 Lab Requisition [facility] - Main Lab 299 [facility] [place] [facility] [place] [phone] Dorie Thompson, PA [address] [address] Dysuria Social History Tobacco Use Types Packs/Day [...] Department Care Team (Late Contact Info) Description 09/21/2025 12:00 PM EST Appointment [facility] Endoscopy [address] [place] [phone] Faraz Adams MD [address] [address] 12/05/2025 10:00 AM EST Office Visit [facility] Hematology Oncology [address] [place] [address] Lor Bal MD [address] [place] [phone] documented as of this encounter Procedures Procedure Name Priority Date/Time Associated Diagnosis Comments BACTERIAL IDENTIFICATION AND SUSCEPTIBILITY, AEROBIC Routine 09/22/2024 10:45 AM EST Dysuria documented in this encounter Results * (ABNORMAL) Bacterial identification and susceptibility, aerobic (09/22/2024 10:45 AM EST) Culture, Bacterial ID and Sensitivity Klebsiella pneumoniae ssp pneumoniae(A) LOVE 09/24/2024 9:01 AM EST [facility] LAB Comment: This is an edited [...] MICROBIOLOGY - GENERAL ORDER KEVIN Final Result [facility] 299 [place] [address], documented in this encounter Visit Diagnoses Diagnosis Dysuria documented in this encounter Additional Health Concerns Infection Onset Date Last Indicated Resolved Time CRE 02/17/2025 02/17/2025 MDRO (other) 02/17/2025 02/17/2025 Respiratory Rule-Out 07/26/2025 07/26/2025 025 10:50 PM EDT COVID-19 Rule-Out 07/26/2025 07/26/2025 07/26/2025 10:50 PM EDT documented as of this encounter Care Teams Children'S Nursery Assistant Relationship Specialty Start Date End Date Mariely Vargas MD [address] [place] [address] PCP - General 05/29/22 documented as of this encounter
--- OUTSIDE RECORDS SUMMARY | 2025-09-12 10:28 | XMS_ITS | Encounter Summary ---
Author Organization [facility] Address [address] [place] [address] Care Team Providers Care Soda Dialyzer Name Role Phone Mariely Vargas MD Primary Care Provider [phone] Encounter Details Date Type Department Care Team (Late st Contact Info) Description 02/17/[address] [facility] - Main Lab 299 [place] [phone] Neville Torres MD 3640 [facility] Jamie [address] [place] [address] Dysuria Social History Tobacco Use Types Packs/Day [...] of Assessment Author No 02/04/2025 5:49 AM Madison Garcia RN documented as of this encounter Mental Status * Because of a physical, mental, or emotional condition, do you have serious difficulty concentrating, remembering, or making decisions? (5 years old or older) Answer Entry Date Author No 02/04/2025 5:49 AM Madison Gacria RN documented in this encounter Plan of Treatment Upcoming Encounters Date Type Department Care Team (Late st Contact Info) Description 09/21/2025 12:00 PM EST Appointment [facility] Endoscopy [address] [place] [address] Faraz Adams MD [address] [address] 12/05/2025 10:00 AM EST Office Visit [facility] Hematology Oncology [address] [place] [address] Lor Bal MD [address] [place] [address] documented as of this encounter Procedures Procedure Name Priority Date/Time Associated Diagnosis Comments CULTURE URINE Routine 02/17/2025 8:51 AM EDT Dysuria documented in this encounter Results * (ABNORMAL) Culture urine (02/17/2025 8:51 AM EDT) Culture, Urine >100,000 CFU/mL Klebsiella pneumoniae(A) 02/21/2025 9:56 AM EDT [facility] Comment: This is [...] pneumoniae Trimethoprim/Sulfa methoxa zole DISK DIFFUSION Resistant us Neville Torres MD LAB MICROBIOLOGY - G ENERAL ORDERABLES Final Result [facility] [address] [place] [address], documented in this encounter Visit Diagnoses Diagnosis Dysuria documented in this encounter Additional Health Concerns Infection Onset Date Last Indicated Resolved Time CRE 02/17/2025 02/17/2025 MDRO (other) 02/17/2025 02/17/2025 Respiratory Rule-Out 07/26/2025 07/26/2025 025 10:50 PM EDT COVID-19 Rule-Out 07/26/2025 07/26/2025 07/26/2025 10:50 PM EDT documented as of this encounter Care Teams Soda Dialyzer Relationship Specialty Start Date End Date Mariely Vargas MD [address] [place] [phone] PCP - General 05/29/22 documented as of this encounter
--- OUTSIDE RECORDS SUMMARY | 2025-09-12 10:28 | XMS_ITS | Encounter Summary ---
Author Organization [facility] Address [address] [facility] [address] [place] [address] Phone Care Team Providers Care Certified Personal Finance Counselor Name Role Phone Mariely Vargas MD Primary Care Provider Lindsay Perales MD Unavailable Richard Eden DO, Justine Unavailable [phone] Maribel Nur MD, MPH Unavailable Kezia Webb MD Unavailable [phone] Lor Bal MD Unavailable [phone] Mynor Coats MD Unavailable Eliseo Rand RN Unavailable Ayaka [email or web address] [email or web address] Grover Barbosa MD Unavailable Neville Torres MD Unavailable + [phone] Kya Diaz RN Unavailable Naga [email or web address] Yvonne Lewis Unavailable [phone] Brennon Delcid MD, MPH Unavailable + Cathy Schmidt PA-C Unavailable + Encounter Details Date Type Department Care Team (Late st Contact Info) Description 03/27/2025 Procedure Pass [facility] Echocardiography [address] [place] [address] Social History Tobacco Use Types Packs/Day Years [...] 5:56 PM EDT Malgorzata Sneed RN * [place] Suicide Severity Rating Scale (Screener/Recent Self-Report) Question [...] st Contact Info) Description 06/21/2025 Procedure Pass [facility] Imaging Department, [facility], [place] [address] [facility], Floor L1 [place] [address] 07/24/2025 Procedure Pass [facility] Imaging Department, [facility], MRI [address] [facility], Floor L1 [place] [address] 09/13/2025 9:30 AM EST Blood Draw [facility] Imaging Department, [facility], Imaging Wjopm-ht-Soxp [address] [facility], Floor [address]1 [place] [address] Libertad Ramos DO 450 [place] [address] [email or web address] 09/13/2025 12:30 PM EST Appointment [facility] Imaging Department, [facility], PET/CT 450 [place], [place] Libertad Ramos DO [address] [place] [address] [email or web address] 09/13/2025 1:40 PM EST Appointment [facility] Imaging Department, [facility], [place] [address] [facility], Floor L1 [place] [address] Cathy Schmidt PA-C [address] [place] [address] [place] [address] Brennon Delcid MD, MPH [address] [place] [address] [email or web address] 09/13/2025 3:30 PM EST Office Visit [facility], [address], 11th [place] [address] Brennon Delcid MD, MPH [address] [place] [address] [email or web address] 09/15/2025 8:30 AM EST Office Visit [facility], [address], 11th [place] [address] Maribel Nur MD, MPH [address] [place] [address] [email or web address]@[facility] 09/19/2025 10:00 AM EST Telemedicine [facility], [address], 5th [place] [address] Libertad Ramos V, DO [address] [place] [address] [email or web address] 10/04/2025 1:20 PM EST Office Visit [facility] [address] [place] [address] Alla Escobar MD [address] [place] [address] 3rd [place] [address] 10/26/2025 11:40 AM EST Appointment [facility]rika [facility] Imaging Department, [facility], MRI [address] [place] [address], Floor L1 [place] [address] Libertad Ramos V, DO [address] [place] [address] [email or web address] 11/07/2025 10:30 AM EST Blood Draw Laboratory Services, [address], 2nd [place] [address] Darinel Ordaz M.D. Leukemia MD Mike [address] [place] [address] [place] [address] [email or web address] 11/07/2025 11:30 AM EST Office Visit [facility] for [facility], Division of Hematologic Oncology, [address], 8th [place] [address] aDrinel Ordaz M.D. Leukemia MD Mike [address] [place] [address] [email or web address]@[email or web address] 11/30/2025 11:00 AM EST Office Visit Oral Medicine, [facility] Cancer [place] [address] [facility], 11th [place] [address] Hao Robertson, DMD, PhD [address] [place] [address] [email or web address] documented as of this encounter Visit Diagnoses Not on filedocumented in this encounter Care Teams Certified Personal Finance Counselor Relationship Specialty Start Date End Date Mariely Vargas MD [address] [address] PCP - General Internal Medicine 03/29/24 Lindsay Perales MD [address] [place] [address] [email or web address] Radiation Oncology 07/12/24 Libertad Ramos DO [address] [place] [address] [email or web address] Medical Oncology 12/22/24 Maribel Nur MD, MPH [address] [place] [address] Loida@[facility] Otolaryngology 12/22/24 Kezia Webb MD [address] [place] [address] [email or web address] Dermatology 12/22/24 Lor Bal MD [address] [place] [phone] Wendy [email or web address] Internal Medicine 12/22/24 Mynor Coats MD [address] [address] Dermatology 01/02/25 Eliseo Rand RN [address] [place] [address] [email or web address] Associate Infusion Nurse 01/02/25 Grover Barbosa MD [address] [place] [address] [place] [address] Vice President Integrated Pulmonary Disease 01/05/25 Neville Torres MD [address] [address] [email or web address] Urology 01/27/25 Kya Diaz, PHILIPPE [address] [address] [email or web address] Associate Infusion Nurse 01/23/25 Yvonne Lewis [address] [place] [address] [email or web address] Program Director/Traffic Director 04/13/25 Brennon Delcid MD, MPH [address] [place] [address], [facility]- L2 [place] [address] [email or web address] Radiation Oncology 06/02/25 Cathy Schmidt PA-C [address] [place] [address] and Women's [place] [address] [email or web address] Physician Head Up Operator Helper 06/14/25 documented as of this encounter Additional Source Comments The information contained in this document represents components of the legal health record. It is not the complete legal health record.[facility]
--- OUTSIDE RECORDS SUMMARY | 2025-09-12 10:28 | XMS_ITS | Encounter Summary ---
Author Organization [facility] Address [address] [place] [address] Care Team Providers Care Global Project Manager Name Role Phone Mariely Vargas MD Primary Care Provider [phone] Encounter Details Date Type Department Care Team (Late Contact Info) Description 10/14/2024 Lab Requisition [facility] - Main Lab 299 [facility] [place] [phone] Dorie Thompson, PA [address] [address] Frequency of micturition Social History Tobacco Use [...] Info) Description 09/21/2025 12:00 PM EST Appointment [facility] Endoscopy [address] [place] [phone] Faraz Adams MD 299 [facility] [address] [place] [address] 12/05/2025 10:00 AM EST Office Visit [facility] Hematology Oncology [address] [place] [phone] Lor Bal MD 271 [place] [phone] documented as of this encounter Procedures Procedure Name Priority Date/Time Associated Diagnosis Comments BACTERIAL IDENTIFICATION AND SUSCEPTIBILITY, AEROBIC Routine 10/13/2024 12:00 AM EST Frequency of micturition documented in this encounter Results * (ABNORMAL) Bacterial identification and susceptibility, aerobic (10/13/2024 12:00 AM EST) Culture, Bacterial ID and Sensitivity Klebsiella pneumoniae ssp pneumoniae(A) LOVE 10/15/2024 9:39 AM EST [facility] LAB Comment: This is an edited [...] MICROBIOLOGY - GENERAL ORDER KEVIN Final Result [facility] ([facility] [address] [place] [address], documented in this encounter Visit Diagnoses Diagnosis Frequency of micturition Urinary frequency documented in this encounter Additional Health Concerns Infection Onset Date Last Indicated Resolved Time CRE 02/17/2025 02/17/2025 MDRO (other) 02/17/2025 02/17/2025 Respiratory Rule-Out 07/26/2025 07/26/2025 025 10:50 PM EDT COVID-19 Rule-Out 07/26/2025 07/26/2025 07/26/2025 10:50 PM EDT documented as of this encounter Care Teams Global Project Manager Relationship Specialty Start Date End Date Mariely Vargas MD [address] [place] [phone] PCP - General 05/29/22 documented as of this encounter
--- OUTSIDE RECORDS SUMMARY | 2025-09-12 10:28 | XMS_ITS ---
Author Organization [facility] Address [address] [facility] [address] [place] [address] Phone Care Team Providers Care Disc Jockey Name Role Phone Mariely Vargas MD Primary Care Provider Lindsay Perales MD Unavailable [phone] Richard Eden DO, Justine Unavailable [phone] Maribel Nur MD, MPH Unavailable Kezia Webb MD Unavailable [phone] Lor Bal MD Unavailable [phone] Mynor Coats MD Unavailable [phone] Eliseo Rand RN Unavailable Ayaka [email or web address] Grover Barbosa MD Unavailable [phone] Neville Torres MD Unavailable + [phone] Kya Diaz RN Unavailable Naga [email or web address] Yvonne Lewis Unavailable [phone] Brennon Delcid MD, MPH Unavailable + [...] the first two cycles with me at [facility] and the 3rd and 4th cycles [...] the first two cycles with me at [facility] and the 3rd and 4th cycles [...] Chavarria - Holding hydroxyuria - Referred to [facility] - Reviewing bone marrow biopsy results [...] the first two cycles with me at [facility] and the 3rd and 4th cycles [...] He may elect to also see a lease attendant at [facility] while he is here getting radiation. [...] - holding hydroxyuria - consider referral to [facility] - reviewing bone marrow biopsy results [...] hydroxyurea for many years by Juan Manuel rGeen and Dr. Chavarria. When I met Clay, [...] and looking forward to his trip to [place]. Cutaneous squamous cell carcinoma, locally advanced - [...] FNA of this nodule on 01/08/[address] [facility] and the cytology was insufficient for [...] FNA of this nodule on 01/08/[address] [facility] and the cytology was insufficient for [...]
--- OUTSIDE RECORDS SUMMARY | 2025-09-12 10:28 | XMS_ITS | Patient Health Record ---
Author Organization [employer] [facility] Address [address] [place] [address] Care Team Providers Care Palliative Care Specialist Name Role Phone TROY LOBO Primary Care Provider [phone] Elsa Talamantes Unavailable [phone] Allergies Allergen (clinical drug ingredient) Drug/Non Drug Allergy documented on EMR Reaction Allergy Type Onset Date Status Psyllium Unknown Drug Allergy Active ciprofloxacin Ciprofloxacin Unknown Drug Allergy Active doxycycline Doxycycline Unknown Drug Allergy Act eden Penicillin Unknown Drug Allergy Active Results Component Value Reference Range Notes CBC WITH AUTO DIFFERENTIAL Reviewed date:03/08/2025 05:32:05 PM Interpretation: Performing Lab: Notes/Report: WBC 15.2 4.8-10.8 K/mcL RBC 3.80 4.50-5.50 M/mcL Hemoglobin 10.6 13.5-17.5 g/dL Hematocrit 34.8 42.0-54.0 % MCV 92.3 79.0-98.0 FL MCH 28.1 27.0-32.0 pcg MCHC 30.5 32.0-37.0 g/dL RDW 19.4 11.0-15.0 % Platelets 457 130-400 K/mcL MPV 11.1 7.0-11.0 FL NRBC 0.6 <1.0 % NRBC Absolute 0.09 <0.10 K/mcL FERRITIN Reviewed date:03/09/2025 07:30:37 AM Interpretation: Performing Lab: Notes/Report: Ferritin 260 26-388 ng/mL COMPREHENSIVE METABOLIC PANE L Reviewed date:03/09/2025 [...] 3.2-5.0 g/dL Total Bilirubin 0.7 0.0-1.4 mg/dL PROSTATE SPECIFIC ANTIGEN DI AGNOSTIC Reviewed date:03/09/2025 07:30:31 AM Interpretation: Performing Lab: Notes/Report: The Siemens Advia Toroleoaur Chemiluminescent Immunoassay is used. Results obtained with different assay methods or kits cannot be used interchangeably. Results cannot be interpreted as absolute evidence of the presence or absence of malignant disease. PSA <0.06 0.00-4.00 ng/mL LACTATE DEHYDROGENASE Reviewed date:03/09/2025 07:30:43 AM Interpretation: Performing Lab: Notes/Report: LDH 712 120-246 unit/L LACTATE DEHYDROGENASE Reviewed date:03/17/2025 12:18:49 PM Interpretation: [...] Absolute 0.07 <0.10 K/mcL LACTATE DEHYDROGENASE Reviewed date:01/10/2025 07:32:29 AM Interpretation: [...] 3.2-5.0 g/dL Total Bilirubin 0.7 0.0-1.4 mg/dL CBC WITH AUTO DIFFERENTIAL Reviewed date:08/30/2025 06:05:37 PM Interpretation: Performing Lab: Notes/Report: WBC 15.9 4.8-10.8 K/mcL RBC 3.70 4.50-5.50 M/mcL Hemoglobin 9.9 13.5-17.5 g/dL Hematocrit 32.4 42.0-54.0 % MCV 87.3 79.0-98.0 FL MCH 26.7 27.0-32.0 pcg MCHC 30.6 32.0-37.0 g/dL RDW 22.3 11.0-15.0 % Platelets 464 130-400 K/mcL MPV 11.0 7.0-11.0 FL NRBC 0.2 <1.0 % NRBC Absolute 0.03 <0.10 K/mcL FERRITIN Reviewed date:01/10/2025 07:32:26 AM Interpretation: Performing [...] <1.0 % NRBC Absolute 0.12 <0.10 K/mcL VAS US DUPLEX LOWER EXT VENO US LEFT Reviewed date:03/06/2025 05:18:24 PM Interpretation: Performing Lab: Notes/Report: Note See Note [facility], a member of [facility] Patient Name: CLAY JOHNSON Date of : 1950 Reason for Exam: edema Exam Date: 03/06/2025 [id number] EST Report Status: Final Ordering Provider: JOHN [...] in the left femoral-popliteal [place] ([id number]) -------- FINAL REPOR T -------- Dictated By: Alanis Andrew i Dictated Date: 03/06/2025 11:02 ET Assigned Physician: Alanis Stout Reviewed and Electronically Signed By: Alanis Stout Signed Date: 025 11:03 ET Workstation ID: [id number] Transcribed By: Self Edit Transcribed Date: 03/06/2025 11:02 ET XR ABDOMEN 1 VIEW Reviewed date:03/06/2025 05:18:11 PM Interpretation: Performing Lab: Notes/Report: Note See Note [facility], a member of [facility] Patient Name: CLAY JOHNSON Date of : 1950 Reason for Exam: CALCULUS OF KIDNEY Exam Date: 03/06/2025 [id number] EST Report Status: Final Ordering Provider: PATRICE TORRES PCP: TROY LOBO HISTORY: The patient is a 74-year-old male [...] size from 2.8 mm on 01/01/2018. Code 50102 -------- FINAL REPOR T -------- Dictated By: Hunter Piña Dictated Date: 03/06/2025 11:22 ET Assigned Physician: Hunter Piña Reviewed and Electronically Signed By: Hunter Piña Signed Date: 025 11:26 ET Workstation ID: [id number] Transcribed By: Self Edit Transcribed Date: 03/06/2025 11:22 ET POCT GLUCOSE, BLOOD Reviewed date:02/06/2025 07:48:36 AM Interpretation: Performing Lab: Notes/Report: Glucose POCT 196 70-100 mg/dL XR PELVIS 1-2 VIEWS Reviewed date:02/06/2025 07:48:46 AM Interpretation: Performing Lab: Notes/Report: Note See Note [facility], a member of [employer] [employer] Patient Name: CLAY JOHNSON Date of : 1950 Reason for Exam: Left paralumbar/gluteal pain Exam Date: 02/05/2025 [id number] EST Report Status: Final Ordering Provider: JOE [...] Electronically Signed By: Paz Chino Signed Date: 025 12:17 ET Workstation ID: [id number] Transcribed By: Self Edit Transcribed Date: 02/05/2025 [...] Interpretation: Performing Lab: Notes/Report: Note See Note [facility], a member of [employer] Patient Name: CLAY JOHNSON Date of : 1950 Reason for Exam: Low back pain, cancer suspected Exam Date: 02/04/2025 [id number] EST Report Status: Final Ordering Provider: STUART [...] L4-5: Moderate disc bulge and facet arthropathy. Raiq-ld-xycyigmh spinal stenosis. Moderate bilateral foraminal stenoses, left greater than right. L5-S1: Unremarkable. Multiple bilateral renal cysts. Paraspinal muscles unremarkable. IMPRESSION: Impression: 1. No evidence for metastatic disease. 2. Cpqc-pb-kganwdvg spinal and moderate bilateral foraminal stenoses at L4-5 related to a di sc bulge and facet arthrosis. This document has be en electronically signed by: Ruby Hunt DO on 02/04/2025 14:36:37 PATHOLOGIST REVIEW BLOOD SME AR Reviewed date:01/30/2025 [...] <1.0 % NRBC Absolute 0.19 <0.10 K/mcL MR THORACIC SPINE WO AND W C ONTRAST Reviewed date:06/16/2025 04:05:19 PM Interpretation: Performing Lab: Notes/Report: Note See Note [facility], a member of [employer] Patient Name: CLAY JOHNSON Date of : 1950 Reason for Exam: Paraspinal mass/tumor Exam Date: 06/15/2025 [id number] EST Report Status: Final Ordering Provider: JOHN [...] spleen is only partially included in the dykhy-za-wxph but appears to be enlarged. There are [...] is onl y partially included in the dctcm-gk-ytmm but appears enlarged. -------- FINAL REPOR T -------- Dictated By: Nikos Cota Dictated Date: 06/16/2025 15:23 ET Assigned Physician: Nikos Alvarenga Reviewed and Electronically Signed By: Nikos Alvarenga Signed Date: 025 15:54 ET Workstation ID: [id number] Transcribed By: Self Edit Transcribed Date: 06/16/2025 15:29 ET MR LUMBAR SPINE WO AND W CON TRAST Reviewed date:06/16/2025 04:27:08 PM Interpretation: Performing Lab: Notes/Report: Note See Note [facility], a member of [employer] Patient Name: CLAY JOHNSON Date of : 1950 Reason for Exam: Paraspinal mass/tumor Exam Date: 06/15/2025 [id number] EST Report Status: Final Ordering Provider: JOHN MARTINS PCP: SIMMONS GUL PROCEDURE: MRI of th e lumbar spine with intravenous contrast. HISTORY: Paraspinal mass/tumor. TECHNIQUE: Sagittal and axial multisequence MRI of the lumbar spine with and without intravenous contrast administration. IV contrast dose: 17 mL Dotarem from a 20 mL vial with 3 mL discarded. COMPARISON: 02/04/2025. FINDINGS: Bilateral renal cortical cysts. The spleen is only partially included in the nhamg-tp-mnjf but appears enlarged. There is moderate edema [...] Signed Date: 025 16:09 ET Workstation ID: [id number] Transcribed By: Self Edit Transcribed Date: 06/16/2025 15:55 ET MR CERVICAL SPINE WO AND Edy HANNA Reviewed date:06/16/2025 04:05:24 PM Interpretation: Performing Lab: Notes/Report: Note See Note [facility], a member of [employer] Patient Name: CLAY JOHNSON Date of : 1950 Reason for Exam: Paraspinal mass/tumor Exam Date: 06/15/2025 [id number] EST Report Status: Final Ordering Provider: JOHN [...] Signed Date: 025 15:22 ET Workstation ID: [id number] Transcribed By: Self Edit Transcribed Date: 06/16/2025 15:00 ET FLOW CYTOMETRY Reviewed date:05/03/2025 04:15:58 PM Interpretation: [...] diagnostic phenotypic aberrancy. - The proportion of CH31-oclatdfa blasts is approximately 2.5% of QQ04-nbmsajme cells. Note: Although not entirely specific, the [...] phenotypic aberrancy. There is a population of UG85-fzodgrwy blasts with a myeloid phenotype that accounts for 2.5% of RB25-huzlyoyl cells. This population expresses the myeloid associated antigens CD33, CD117 and CD123 (weak, partial) as well as HLA-DR and CD38, but shows no significant expression of CD13, CD15, or specific markers of monocytic, T cell or B cell differentiation. It is noted that most of the granulocytes in this specimen appear to comprise mature EJ25-kzfusdaw neutrophils suggesting that this bone marrow represents [...] are 65.7% of total and show generally truck driver's offsider immunophenotypic maturation. Most of the granulocytes show expression of CD10 and have phenotypic features of mature granulocytes, raising the possibility of hemodilution. - Monocytic cells are 2.9% of total and show generally truck driver's offsider immunophenotypic maturation. - CD45 dim cells are 3.7% of total. CD34+ blasts with coexpression of CD33 (weak), CD38, CD117, CD123 (dim), and HLA-DR without significant expression of CD13 or CD15 account for 2.8% of the GR43-jcenmwvy cells. The blasts show no significant expression of CD7 or CD56. Antibodies (27 markers): CD2, CD3, CD4, CD5, CD7, CD8, CD10, CD11b, CD13, CD14, CD15, CD16, CD19, CD20, CD33, CD34, CD38, CD45, CD56, CD64, CD117, CD123, CD200, HLA-DR, [place], Lambda, TCR??. This test was developed and [...] from the current specimen. Please refer to [email or web address] Results (below). The findings in the current [...] 400 Electronic Signature Alondra Diego M.S., Ph.D., [facility] [place] [facility]. Electronic Signature Adi Bejarano M.D., Ph.D. Report Date: 05/01/2025 07:17:10 PM ET [...] (MF-2). There was a low proportion of JQ12-hwglyocw blasts detected by flow cytometry. Although that result may not be fully wire rope sales representative of the bone marrow (a hemodilute specimen), an immunohistochemical study also shows a low proportion of SX90-kegfupka blasts in the bone marrow (estimated at [...] is a majority of T cells. The HM59-gvgocsgy B cells include at least a subset [...] diagnostic phenotypic aberrancy. - The proportion of US98-ekzvtugi blasts is approximately 2.5% of JB04-rlczbuds cells. Note: Although not entirely specific, the [...] phenotypic aberrancy. There is a population of RQ87-pszulmyi blasts with a myeloid phenotype that accounts for 2.5% of GD75-ckfqmfmi cells. This population expresses the myeloid associated antigens CD33, CD117 and CD123 (weak, partial) as well as HLA-DR and CD38, but shows no significant expression of CD13, CD15, or specific markers of monocytic, T cell or B cell differentiation. It is noted that most of the granulocytes in this specimen appear to comprise mature VE94-txughxjk neutrophils suggesting that this bone marrow represents [...] are 65.7% of total and show generally truck driver's offsider immunophenotypic maturation. Most of the granulocytes show expression of CD10 and have phenotypic features of mature granulocytes, raising the possibility of hemodilution. - Monocytic cells are 2.9% of total and show generally truck driver's offsider immunophenotypic maturation. - CD45 dim cells are 3.7% of total. CD34+ blasts with coexpression of CD33 (weak), CD38, CD117, CD123 (dim), and HLA-DR without significant expression of CD13 or CD15 account for 2.8% of the SB42-ekimqhzf cells. The blasts show no significant expression of CD7 or CD56. Antibodies (27 markers): CD2, CD3, CD4, CD5, CD7, CD8, CD10, CD11b, CD13, CD14, CD15, CD16, CD19, CD20, CD33, CD34, CD38, CD45, CD56, CD64, CD117, CD123, CD200, HLA-DR, [place], Lambda, TCR??. This test was developed and [...] marrow aspirate, is submitted in toto to [facility] in [place], [place], for flow cytometric studies. The remaining purple top tube and both green top tubes, containing 3 mL and 6 ml of bone marrow aspirate, respectively, are submitted to [facility], [place], [place], for cytogenetic studies. B. Bone Marrow [...] and their performance characteristics were determined by [facility]. They have not been cleared [...] Addendum This case was sent t o [facility], [address] [place], [place], (CLIA #[id number]) for Oncology Chromosome Analysis studies. Their diagnosis is as follows: CULTURE BLOOD Reviewed date:08/01/2025 07:47:19 AM Interpretation: Performing Lab: Notes/Report: Culture, Blood No growth at 5 days THYROID STIMULATING HORMONE WITH REFLEX TO FREE T4 AND FREE T3 Reviewed date:06/29/2025 03:10:38 PM Interpretation: Performing Lab: Notes/Report: TSH 2.56 0.40-4.00 mcIU/mL CT CHEST WO CONTRAST Reviewed date:06/29/2025 03:10:35 PM Interpretation: Performing Lab: Notes/Report: Note See Note [facility], a member of [facility] Patient Name: CLAY JOHNSON Date of : 1950 Reason for Exam: Dyspnea, chronic, unclear etiology Exam Date: 06/29/2025 [id number] EST Report Status: Final Ordering Provider: HEATHER CAMERON PCP: TROY LOBO INDICATION: Shortnes s of breath with left lower lobe infiltrate suspected on portable chest radiograph TECHNIQUE: CT scan o f the chest obtained without contrast. Scanner: quickhuddleer 128 slice VCT Dose reduction technique: ASIR [...] Signed Date: 025 12:45 ET Workstation ID: [id number] Transcribed By: Self Edit Transcribed Date: 06/29/2025 12:34 ET FERRITIN Reviewed date:06/29/2025 03:10:49 PM Interpretation: Performing Lab: Notes/Report: Ferritin 261 26-388 ng/mL CBC WITH AUTO DIFFERENTIAL Reviewed date:06/29/2025 03:10:55 PM Interpretation: Performing Lab: Notes/Report: WBC 13.3 4.8-10.8 K/mcL RBC 3.20 4.50-5.50 M/mcL Hemoglobin 8.6 13.5-17.5 g/dL Hematocrit 27.6 42.0-54.0 % MCV 85.4 79.0-98.0 FL MCH 26.6 27.0-32.0 pcg MCHC 31.2 32.0-37.0 g/dL RDW 20.4 11.0-15.0 % Platelets 341 130-400 K/mcL MPV 10.3 7.0-11.0 FL NRBC 0.2 <1.0 % NRBC Absolute 0.03 <0.10 K/mcL TYPE AND SCREEN Reviewed date:06/29/2025 07:43:25 AM Interpretation: Performing Lab: Notes/Report: ABO Group A Rh Type Positive Antibody Screen Negative BASIC METABOLIC PANEL Reviewed date:06/29/2025 03:11:05 PM [...] BUN/Creatinine Ratio 16.0 Calcium 8.3 8.5-10.5 mg/dL XR CHEST 1 VIEW Reviewed date:06/29/2025 03:11:25 PM Interpretation: Performing Lab: Notes/Report: Note See Note [facility], a member of [facility] Patient Name: CLAY JOHNSON Date of : 1950 Reason for Exam: AMS Exam Date: 06/28/2025 [id number] EST Report Status: Final Ordering Provider: MARVIN [...] Electronically Signed By: BORIS PRUITT Signed Date: 025 08:51 ET Workstation ID: [id number] Transcribed By: Self Edit Transcribed Date: 06/29/2025 08:51 ET CYTOGENETICS MISCELLANEOUS Reviewed date:05/03/2025 04:16:05 PM Interpretation: Performing Lab: Notes/Report: Scan Result See Scanned Result IR BX AND ASP BONE MARROW Reviewed date:04/25/2025 10:59:39 AM Interpretation: Performing Lab: Notes/Report: Note See Note [facility], a member of [facility] Patient Name: CLAY JOHNSON Date of : 1950 Reason for Exam: Polycythemia vera, myelofibrosis restaging Exam Date: 04/24/2025 [id number] EST Report Status: Final Ordering Provider: ANSHUL [...] Signed Date: 025 13:51 ET Workstation ID: [id number] Transcribed By: Self Edit Transcribed Date: 04/24/2025 [...] <1.0 % NRBC Absolute 0.13 <0.10 K/mcL COMPREHENSIVE METABOLIC PANE L Reviewed date:07/25/2025 05:26:30 [...] mg/dL Results kwan ified by repeat testing MAGNESIUM Reviewed date:07/25/2025 05:26:44 PM Interpretation: Performing Lab: Notes/Report: Magnesium 1.8 1.9-2.6 mg/dL IRON AND TIBC Reviewed date:07/25/2025 05:26:09 PM Interpretation: Performing Lab: Notes/Report: Iron 32 50-160 mcg/dL TIBC 204 250-450 mcg/dL Iron Saturation 16 20-50 % CULTURE URINE Reviewed date:02/24/2025 03:31:12 PM Interpretation: [...] 02/18/2025 at 1013 EDT. Report Susceptibility Report MAGNESIUM Reviewed date:02/19/2025 11:41:39 AM Interpretation: Performing [...] <1.0 % NRBC Absolute 0.09 <0.10 K/mcL CULTURE BLOOD Reviewed date:08/01/2025 07:47:13 AM Interpretation: Performing Lab: Notes/Report: Culture, Blood No growth at 5 days MAGNESIUM Reviewed date:06/29/2025 03:11:10 PM Interpretation: Performing Lab: Notes/Report: Magnesium 1.9 1.9-2.6 mg/dL RETICULOCYTE COUNT Reviewed date:06/29/2025 07:43:35 AM Interpretation: [...] Culture, Blood No growth at 5 days CBC WITH AUTO DIFFERENTIAL Reviewed date:07/03/2025 01:06:54 [...] A Rh Type Positive Antibody Screen Negative XR CHEST 2 VIEWS Reviewed date:07/25/2025 05:25:08 PM Interpretation: Performing Lab: Notes/Report: Note See Note [facility], a member of [employer] Patient Name: CLAY JOHNSON Date of : 1950 Reason for Exam: dyspnea Exam Date: 07/25/2025 [id number] EST Report Status: Final Ordering Provider: JOHN MARTINS PCP: TROY LOBO PROCEDURE: PA and lateral radiographs of the chest. HISTORY: dyspnea previous history of pneumonia in June 2025 requiring hospitalization. COMPARISON: 06/28/[address] 06/29/2025. FINDINGS: There are coarse heterogeneous [...] Signed By: Nikos Alvarenga Signed Date: 025 09:06 ET Workstation ID: [id number] Transcribed By: Self Edit Transcribed Date: 07/25/2025 [...] appended to a previously preliminary verified report. VITAMIN B12 Reviewed date:07/25/2025 05:26:39 PM Interpretation: Performing Lab: Notes/Report: Vitamin B-12 1146 250-900 pcg/mL FERRITIN Reviewed date:07/25/2025 05:26:12 PM Interpretation: Performing Lab: Notes/Report: Ferritin 346 26-388 ng/mL FOLATE Reviewed date:07/25/2025 05:26:35 PM Interpretation: Performing Lab: Notes/Report: Folate >20.0 2.8-17.0 ng/ml Reason For Referral No Information Medications Medication SIG (Take, Route, Frequency, Duration) Notes Start Date End Date Status Folic Acid 1 MG 1 tablet Orally Once a day Not-Taking OxyCONTIN 10 MG 1 tablet Orally ever y 12 hrs Not-Taking Hydroxyurea 500 MG 2 capsule Orally Onc e a day Not-Taking Gabapentin 300 MG 3 capsule Orally twi ce a day 06/19/2025 Not-Taking Loperamide HCl 2 MG 2 capsule as needed Orally twice a day Not-Taking hydrOXYzine HCl 25 MG 1 tablet Orally Th ree times a day Active Cephalexin 250 MG 1 capsule Orally daily Not-Taking Omeprazole 20 MG 1 capsule 30 minutes before morning meal Orally Once a day Active Sulfacetamide Sodium 10 % 1 application Externally Not-Taking Probiotic Active Cilostazol 50 MG 1 tablet 30 minutes before or 2 hours after breakfast and dinner Orally Twice a day Not-Taking Vitamin C 250 MG 1 tablet Orally Once a day Active Mometasone Furoate 0.1 % 1 application Externally Once a day Not-Taking Bactrim 400-80 MG 1 tablet Orally Once a day Not-Taking Ketoconazole 2 % 1 application Externally Once a day Not-Taking Fluticasone Propionate 50 MCG/ACT 1 spray in each nostril Nasally Once a day As needed Active Cefdinir 300 MG as directed Orally twice a day; Duration: 5 days 08/11/2025 Not-Taking Methenamine Hippurate 1 GM 1 tablet Orally Twice a day Not-Taking Azithromycin 250 MG 1 tablet Orally 2 tablets on the first day, then 1 tablet daily; Duration: 5 days 08/11/2025 Not-Taki ng Aspirin Adult Low Dose 81 MG 1 tablet Orally Once a day Not-Taking Ipratropium Troy 0.03 % 2 sprays in each nostril Nasally Twice a day; Duration: 30 day(s) 01/27/2023 Active Cialis 5 MG 1 tablet as needed Orally Once a day Not-Taking Levothyroxine Sodium 25 MCG 1 tablet in the morning on an empty stomach Orally Once a day Active Mucinex 600 MG 1 tablet as needed Orally every 12 hrs; Duration: 14 days 08/11/2025 Not-Taking Immunizations Vaccine Route Administration Date Status Comme nts COVID 19 Pfizer Unknown 12/29/2020 Administered COVID 19 Pfizer Unknown 01/19/2021 Administered COVID 19 Pfizer Unknown 08/22/2021 Administered COVID 19 Pfizer IM Intramuscular 09/04/2025 Administered COVID Pfizer Unknown 03/06/2022 Administered COVID-19 Pfizer Unknown 09/04/2022 Administered Flu High-Dose Unknown 08/29/2022 Administered Fluzone High Dose 73022 IM Intramuscular 09/02/2024 Admini stered Fluzone High Dose 13494 IM Intramuscular 09/04/2025 Admini stered Fluzone High-Dose IM Intramuscular 09/01/2023 Administered Prevnar 20 IM Intramuscular 09/04/2025 Administered Social History Tobacco Use: Social History [...] W/U Status Risk Notes Problem Polycythemia vera (286990434) Polycythemia vera (D45) Active confirmed Problem Hypothyroidism (92452965) Hypothyroidism, unspecified (E03.9) Active confirmed Problem Non-toxic single thyroid nodule (201898464) Nontoxic single thyroid nodule (E04.1) Active confirmed Problem Disorder due to type 2 diabetes mellitus (179859197) Type 2 diabetes mellitus with unspecified complications (E11.8) Active confirmed Problem Obstructive sleep apnea syndrome (disorder) (16647052) Obstructive sleep apnea (adult) (pediatric) (G47.33) Active confirmed Problem Right carotid artery stenosis (299565217633082) Occlusion and stenosis of right carotid artery (I65.21) Active confirmed Problem Pain co-occurrent and due to varicose veins of bilateral legs (4155114971898258 0) Varicose veins of bilateral lower extremities with pain (I83.813) Active confirmed Problem Gastro-esophageal reflux disease without esophagitis (611935623) Gastro-esophageal reflux disease without esophagitis (K21.9) Active confirmed Problem Irritable bowel syndrome with diarrhea (040468684) Irritable bowel syndrome with diarrhea (K58.0) Active confirmed Problem Rosacea (873304238) Rosacea, unspecified (L71.9) Active confirmed Problem Gout (31054701) Gout, unspecifie d (M10.9) Active confirmed Problem Lumbosacral radiculopathy (1106127) Radiculopathy, lumbosacral region (M54.17) Active confirmed Problem Screening for cardiovascular system disease (741786038) Encounter for screening for cardiovascular disorders (Z13.6) Active confirmed Problem History of malignant neoplasm of prostate (554033654) Personal history of malignant neoplasm of prostate (Z85.46) Active confirmed Problem History of disease caused by Severe acute respiratory syndrome coronavirus 2 (situation) (3510613060131278 05) Personal history of COVID-19 (Z86.16) Active confirmed Problem Thyroid nodule (739051175) Thyroid nodule (E04.1) Active confirmed Vital Signs Heart Rate 81 /min 09/04/2025 Temperature 97.5 degrees Fahrenheit 09/04/2025 Oximetry 100 % 09/04/2025 Blood pressure diastolic 72 mm Hg 09/04/2025 Height 69 in 09/04/2025 Blood pressure systolic 130 mm Hg 09/04/2025 Weight 166.1 lbs 09/04/2025 BMI 24.53 kg/m2 09/04/2025 Encounters Encounter Location Date Provider Diagnosis [address] [place] [address] 06/19/2025 TROY LOBO Hypothyroidism, unspecified E03.9 ; Radiculopathy, lumbosacral region M54.17 ; Gastro-esophageal reflux disease without esophagitis K21.9 ; Polycythemia vera D45 ; Personal history of malignant neoplasm of prostate Z85.46 ; Obstructive sleep apnea (adult) (pediatric) G47.33 ; Rosacea, unspecified L71.9 ; Varicose veins of bilateral lower extremities with pain I83.813 and Encounter for screening for cardiovascular disorders Z13.[address] [place] [address] 09/04/2025 TROY LOBO Encounter for genera l adult medical examination without abnormal findings Z00.00 ; Polycythemia vera D45 ; Gastro-esophageal reflux disease without esophagitis K21.9 ; Personal history of malignant neoplasm of prostate Z85.46 ; Obstructive sleep apnea (adult) (pediatric) G47.33 ; Encounter for screening for cardiovascular disorders Z13.6 ; Hypothyroidism, unspecified E03.9 ; Type 2 diabetes mellitus with unspecified complications E11.8 and Encounter for immunization Z23 [address] [place] [address] 02/08/[address] [place] [address] 03/21/[address] [place] [address] 04/04/2025 TROY LOBO [address] [place] [address] 05/04/2025 Elsa Talamantes [address] [address] 08/11/2025 Elsa Talamantes Pneumonia, unspecifi ed organism J18.[address] [address] 09/11/2025 TROY LOBO Assessments Encounter Date Diagnosis (ICD Code) Assessment Notes Treatment Notes Treatment Clinical Notes Section Notes 06/19/2025 Hypothyroidism, unspecified (ICD-10 - E03.9) Mr. [...] nodes were positive and was treated at [facility]. He also complained of lower back pain [...] has been seen by plastic surgery at [facility] doctor Med June 01, 2024. He is status post chemo and radiation and neck dissection and 3 out of 34 lymph nodes were positive and he follows with [facility]. [facility]. Sleep is stable on CPAP and [...] for evaluation Eye screening. He sees his electronic organ technician regularly. Dental screening. He sees dentist regularly. Advance directive. He is on full code and his HCP is his Curtis [phone] Colon cancer screening. He is up to date on his colonoscopy and is on [id number]. 06/19/2025 Radiculopathy, lumbosacral region (ICD-10 - M54.17) [...] nodes were positive and was treated at [facility]. He also complained of lower back pain [...] has been seen by plastic surgery at [facility] doctor Med June 01, 2024. He is status post chemo and radiation and neck dissection and 3 out of 34 lymph nodes were positive and he follows with [facility]. [facility]. Sleep is stable on CPAP and [...] for evaluation Eye screening. He sees his electronic organ technician regularly. Dental screening. He sees dentist regularly. Advance directive. He is on full code and his HCP is his Curtis [phone] Colon cancer screening. He is up to date on his colonoscopy and is on [id number]. 08/11/2025 Pneumonia, unspecified organism (ICD-10 - J18.9) 09/04/2025 Encounter for general adult medical examination without abnormal findings (ICD-10 - Z00.00) Mr. Johnson is a 74 year old gentleman with GERD, hypothyroidism, kidney stones, IBS and sees Dr. Hendricks, prostate cancer s/p prostatectomy in 2009 and was previously seeing Dr. Torres, actinic keratosis, hyperglycemia and sees Dr. Escobar, ibrahima and sees Dr. Coats and polycythemia vera and sees Dr. 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 His last hemoglobin A1c was 5.7. He follows up with endocrinology at [place]. He is not on any medications at this point because of significant weight loss. Repeat lipid panel, A1c, urine for microalbumin, renal function. Hypothyroidism. He is stable and he is currently on levothyroxine 25 mcg daily. Acid reflux. He is on omeprazole 20 mg 1 tablet daily. Personal history of malignant prostate cancer. He is stable and he follows up with urologist. 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 He is stable at this point in time and he follows up with oncology at [facility] and also see Dr. Chavarria locally. Polycythemia vera. Stable and he does not need any phlebotomies. Multiple joint osteoarthritis/lum bar radiculopathy. He follows up with physiatry and have intermittent intra-articular injections. 09/04/2025 Polycythemia vera (ICD-10 - D45) Mr. Johnson is a 74 year old gentleman with GERD, hypothyroidism, kidney stones, IBS and sees Dr. Hendricks, prostate cancer s/p prostatectomy in 2009 and was previously seeing Dr. Torres, actinic keratosis, hyperglycemia and sees Dr. Escobar, rosacea and sees Dr. Coats and polycythemia vera and sees Dr. 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 His last hemoglobin A1c was 5.7. He follows up with endocrinology at [place]. He is not on any medications at this point because of significant weight loss. Repeat lipid panel, A1c, urine for microalbumin, renal function. Hypothyroidism. He is stable and he is currently on levothyroxine 25 mcg daily. Acid reflux. He is on omeprazole 20 mg 1 tablet daily. Personal history of malignant prostate cancer. He is stable and he follows up with urologist. 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 He is stable at this point in time and he follows up with oncology at [facility] and also see Dr. Chavarria locally. Polycythemia vera. Stable and he does not need any phlebotomies. Multiple joint osteoarthritis/lum bar radiculopathy. He follows up with physiatry and have intermittent intra-articular injections. 06/19/2025 Gastro-esophageal reflux disease without esophagitis (ICD-10 [...] nodes were positive and was treated at [facility]. He also complained of lower back pain [...] has been seen by plastic surgery at [facility] doctor Med June 01, 2024. He is status post chemo and radiation and neck dissection and 3 out of 34 lymph nodes were positive and he follows with [facility]. [facility]. Sleep is stable on CPAP and [...] for evaluation Eye screening. He sees his electronic organ technician regularly. Dental screening. He sees dentist regularly. Advance directive. He is on full code and his HCP is his Curtis [phone] Colon cancer screening. He is up to date on his colonoscopy and is on [id number]. 06/19/2025 Polycythemia vera (ICD-10 - D45) Mr. [...] nodes were positive and was treated at [facility]. He also complained of lower back pain [...] has been seen by plastic surgery at [facility] doctor Med June 01, 2024. He is status post chemo and radiation and neck dissection and 3 out of 34 lymph nodes were positive and he follows with [facility]. [facility]. Sleep is stable on CPAP and [...] for evaluation Eye screening. He sees his electronic organ technician regularly. Dental screening. He sees dentist regularly. Advance directive. He is on full code and his HCP is his Curtis [phone] Colon cancer screening. He is up to date on his colonoscopy and is on [id number]. 09/04/2025 Gastro-esophageal reflux disease without esophagitis (ICD-10 - K21.9) Mr. Johnson is a 74 year old gentleman with GERD, hypothyroidism, kidney stones, IBS and sees Dr. Hendricks, prostate cancer s/p prostatectomy in 2009 and was previously seeing Dr. Torres, actinic keratosis, hyperglycemia and sees Dr. Escobar, ibrahima and sees Dr. Coats and polycythemia vera and sees Dr. 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 His last hemoglobin A1c was 5.7. He follows up with endocrinology at [place]. He is not on any medications at this point because of significant weight loss. Repeat lipid panel, A1c, urine for microalbumin, renal function. Hypothyroidism. He is stable and he is currently on levothyroxine 25 mcg daily. Acid reflux. He is on omeprazole 20 mg 1 tablet daily. Personal history of malignant prostate cancer. He is stable and he follows up with urologist. 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 He is stable at this point in time and he follows up with oncology at [facility] and also see Dr. Chavarria locally. Polycythemia vera. Stable and he does not need any phlebotomies. Multiple joint osteoarthritis/lum bar radiculopathy. He follows up with physiatry and have intermittent intra-articular injections. 09/04/2025 Personal history of malignant neoplasm of prostate (ICD-10 - Z85.46) Mr. Johnson is a 74 year old gentleman with GERD, hypothyroidism, kidney stones, IBS and sees Dr. Hendricks, prostate cancer s/p prostatectomy in 2009 and was previously seeing Dr. Torres, actinic keratosis, hyperglycemia and sees Dr. Escobar, rosacea and sees Dr. Coats and polycythemia vera and sees Dr. 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 His last hemoglobin A1c was 5.7. He follows up with endocrinology at [place]. He is not on any medications at this point because of significant weight loss. Repeat lipid panel, A1c, urine for microalbumin, renal function. Hypothyroidism. He is stable and he is currently on levothyroxine 25 mcg daily. Acid reflux. He is on omeprazole 20 mg 1 tablet daily. Personal history of malignant prostate cancer. He is stable and he follows up with urologist. 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 He is stable at this point in time and he follows up with oncology at [facility] and also see Dr. Chavarria locally. Polycythemia vera. Stable and he does not need any phlebotomies. Multiple joint osteoarthritis/lum bar radiculopathy. He follows up with physiatry and have intermittent intra-articular injections. 06/19/2025 Personal history of malignant neoplasm of [...] nodes were positive and was treated at [facility]. He also complained of lower back pain [...] has been seen by plastic surgery at [facility] doctor Med June 01, 2024. He is status post chemo and radiation and neck dissection and 3 out of 34 lymph nodes were positive and he follows with [facility]. [place]. Sleep is stable on CPAP and [...] for evaluation Eye screening. He sees his electronic organ technician regularly. Dental screening. He sees dentist regularly. Advance directive. He is on full code and his HCP is his Curtis [phone] Colon cancer screening. He is up to date on his colonoscopy and is on [id number]. 06/19/2025 Obstructive sleep apnea (adult) (pediatric) (ICD-10 [...] nodes were positive and was treated at [facility]. He also complained of lower back pain [...] has been seen by plastic surgery at [facility] doctor Med June 01, 2024. He is status post chemo and radiation and neck dissection and 3 out of 34 lymph nodes were positive and he follows with [facility]. [place]. Sleep is stable on CPAP and sees Dr. Barbosa. He uses his inhalers as needed. Polycythemia vera. He is on Aspirin 81 MG, Hydroxyurea [address] Chavarria.most of his lab work is ordered and followed by hematology Hyperglycemia. A1c 6.8, glucose 153. He sees Dr. Escobar IBS. He sees [facility] Ibrahima. He sees Dr. Coats. He uses Ketoconazole, Sulfacetamide Sodium and Mometasone Furoate cream umbilical hernia partially reducible he is not in any pain but is worried we will get a surgical referral for him for evaluation Eye screening. He sees his electronic organ technician regularly. Dental screening. He sees dentist regularly. Advance directive. He is on full code and his HCP is his Curtis [phone] Colon cancer screening. He is up to date on his colonoscopy and is on [id number]. 09/04/2025 Obstructive sleep apnea (adult) (pediatric) (ICD-10 - G47.33) Mr. Johnson is a 74 year old gentleman with GERD, hypothyroidism, kidney stones, IBS and sees Dr. Hendricks, prostate cancer s/p prostatectomy in 2009 and was previously seeing Dr. Torres, actinic keratosis, hyperglycemia and sees Dr. Escobar, rosacea and sees Dr. Coats and polycythemia vera and sees Dr. 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 His last hemoglobin A1c was 5.7. He follows up with endocrinology at [place]. He is not on any medications at this point because of significant weight loss. Repeat lipid panel, A1c, urine for microalbumin, renal function. Hypothyroidism. He is stable and he is currently on levothyroxine 25 mcg daily. Acid reflux. He is on omeprazole 20 mg 1 tablet daily. Personal history of malignant prostate cancer. He is stable and he follows up with urologist. 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 He is stable at this point in time and he follows up with oncology at [facility] and also see Dr. Chavarria locally. Polycythemia vera. Stable and he does not need any phlebotomies. Multiple joint osteoarthritis/lum bar radiculopathy. He follows up with physiatry and have intermittent intra-articular injections. 09/04/2025 Encounter for screening for cardiovascular disorders (ICD-10 - Z13.6) Mr. Johnson is a 74 year old gentleman with GERD, hypothyroidism, kidney stones, IBS and sees Dr. Hendricks, prostate cancer s/p prostatectomy in 2009 and was previously seeing Dr. Torres, actinic keratosis, hyperglycemia and sees Dr. Escobar, ibrahima and sees Dr. Coats and polycythemia vera and sees Dr. 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 His last hemoglobin A1c was 5.7. He follows up with endocrinology at [place]. He is not on any medications at this point because of significant weight loss. Repeat lipid panel, A1c, urine for microalbumin, renal function. Hypothyroidism. He is stable and he is currently on levothyroxine 25 mcg daily. Acid reflux. He is on omeprazole 20 mg 1 tablet daily. Personal history of malignant prostate cancer. He is stable and he follows up with urologist. 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 He is stable at this point in time and he follows up with oncology at [facility] and also see Dr. Chavarria locally. Polycythemia vera. Stable and he does not need any phlebotomies. Multiple joint osteoarthritis/lum bar radiculopathy. He follows up with physiatry and have intermittent intra-articular injections. 06/19/2025 Rosacea, unspecified (ICD-10 - L71.9) Mr. [...] nodes were positive and was treated at [facility]. He also complained of lower back pain [...] has been seen by plastic surgery at [facility] doctor Med June 01, 2024. He is status post chemo and radiation and neck dissection and 3 out of 34 lymph nodes were positive and he follows with [facility]. [facility]. Sleep is stable on CPAP and [...] for evaluation Eye screening. He sees his electronic organ technician regularly. Dental screening. He sees dentist regularly. Advance directive. He is on full code and his HCP is his Curtis [phone] Colon cancer screening. He is up to date on his colonoscopy and is on [id number]. 06/19/2025 Varicose veins of bilateral lower extremities [...] nodes were positive and was treated at [facility]. He also complained of lower back pain [...] has been seen by plastic surgery at [facility] doctor Med June 01, 2024. He is status post chemo and radiation and neck dissection and 3 out of 34 lymph nodes were positive and he follows with [facility]. [facility]. Sleep is stable on CPAP and [...] for evaluation Eye screening. He sees his electronic organ technician regularly. Dental screening. He sees dentist regularly. Advance directive. He is on full code and his HCP is his Curtis [phone] Colon cancer screening. He is up to date on his colonoscopy and is on [id number]. 09/04/2025 Hypothyroidism, unspecified (ICD-10 - E03.9) Mr. Johnson is a 74 year old gentleman with GERD, hypothyroidism, kidney stones, IBS and sees Dr. Hendricks, prostate cancer s/p prostatectomy in 2009 and was previously seeing Dr. Torres, actinic keratosis, hyperglycemia and sees Dr. Escobar, ibrahima and sees Dr. Coats and polycythemia vera and sees Dr. 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 His last hemoglobin A1c was 5.7. He follows up with endocrinology at [place]. He is not on any medications at this point because of significant weight loss. Repeat lipid panel, A1c, urine for microalbumin, renal function. Hypothyroidism. He is stable and he is currently on levothyroxine 25 mcg daily. Acid reflux. He is on omeprazole 20 mg 1 tablet daily. Personal history of malignant prostate cancer. He is stable and he follows up with urologist. 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 He is stable at this point in time and he follows up with oncology at [facility] and also see Dr. Chavarria locally. Polycythemia vera. Stable and he does not need any phlebotomies. Multiple joint osteoarthritis/lum bar radiculopathy. He follows up with physiatry and have intermittent intra-articular injections. 09/04/2025 Type 2 diabetes mellitus with unspecified complications (ICD-10 - E11.8) Mr. Johnson is a 74 year old gentleman with GERD, hypothyroidism, kidney stones, IBS and sees Dr. Hendricks, prostate cancer s/p prostatectomy in 2009 and was previously seeing Dr. Torres, actinic keratosis, hyperglycemia and sees Dr. Escobar, ibrahima and sees Dr. Coats and polycythemia vera and sees Dr. 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 His last hemoglobin A1c was 5.7. He follows up with endocrinology at [place]. He is not on any medications at this point because of significant weight loss. Repeat lipid panel, A1c, urine for microalbumin, renal function. Hypothyroidism. He is stable and he is currently on levothyroxine 25 mcg daily. Acid reflux. He is on omeprazole 20 mg 1 tablet daily. Personal history of malignant prostate cancer. He is stable and he follows up with urologist. 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 He is stable at this point in time and he follows up with oncology at [facility] and also see Dr. Chavarria locally. Polycythemia vera. Stable and he does not need any phlebotomies. Multiple joint osteoarthritis/lum bar radiculopathy. He follows up with physiatry and have intermittent intra-articular injections. 06/19/2025 Encounter for screening for cardiovascular disorders [...] nodes were positive and was treated at [facility]. He also complained of lower back pain [...] has been seen by plastic surgery at [facility] doctor Med June 01, 2024. He is status post chemo and radiation and neck dissection and 3 out of 34 lymph nodes were positive and he follows with [facility]. [facility]. Sleep is stable on CPAP and [...] for evaluation Eye screening. He sees his electronic organ technician regularly. Dental screening. He sees dentist regularly. Advance directive. He is on full code and his HCP is his Curtis [phone] Colon cancer screening. He is up to date on his colonoscopy and is on [id number]. 09/04/2025 Encounter for immunization (ICD-10 - Z23) Mr. Johnson is a 74 year old gentleman with GERD, hypothyroidism, kidney stones, IBS and sees Dr. Hendricks, prostate cancer s/p prostatectomy in 2009 and was previously seeing Dr. Torres, actinic keratosis, hyperglycemia and sees Dr. Escobar, ibrahima and sees Dr. Coats and polycythemia vera and sees Dr. 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 His last hemoglobin A1c was 5.7. He follows up with endocrinology at [place]. He is not on any medications at this point because of significant weight loss. Repeat lipid panel, A1c, urine for microalbumin, renal function. Hypothyroidism. He is stable and he is currently on levothyroxine 25 mcg daily. Acid reflux. He is on omeprazole 20 mg 1 tablet daily. Personal history of malignant prostate cancer. He is stable and he follows up with urologist. 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 He is stable at this point in time and he follows up with oncology at [facility] and also see Dr. Chavarria locally. Polycythemia vera. Stable and he does not need any phlebotomies. Multiple joint osteoarthritis/lum bar radiculopathy. He follows up with physiatry and have intermittent intra-articular injections. Plan Of Treatment Pending Test Test Name Order Date GLUCOSE 08/28/2023 Future Test Test Name Order Date Hemoglobin [id number] 09/04/2025 CBC With Differential/Platelet-[id number] TSH+Free [id number] 09/04/2025 Lipid Panel-[id number] 09/04/2025 Comp. Metabolic Panel [id number] 2024 Next Appt Details Provider Name:TROY LOBO , 03/05/2026 10:30:00 AM, [address] [place] [address], [id number], Insurance Providers Payer Name Payer Address Payer Phone Subscriber Number Group Number Insured Name Patient Relationship to Insured Coverage Start Date Coverage End Date Medicare [address] HAR[place] ESTRE[place]A HASSAN [address] [id number] Clay Johnson Self - patient is the insured 7 [facility] [address] [place] [address] [phone] [id number] 1 Clay Johnson Self - patient is the insured Medical (General) History Medical History History ICD Code GERD hypothyroidism kidney stones IBS and sees Dr. Hendricks polycythemia vera and sees Dr. Chavarria prostate cancer s/p prostatectomy in 201 [address] Veras actinic keratosis CHICO on CPAP and sees Dr. Barbosa hyperglycemia and sees Dr. Luz alexandra and sees Dr. Coats urethral strictures DVT left lower extremity/PE squamous cell carcinoma of l eft parotid gland and status post chemo, radiation and dissection of lymph nodes and follow-up with Allison Lani Surgical History Surgery Date(Month/Year) prostatectomy 2009 squamous cell carcinoma of t he left ear status post surgery removal status post skin grafting by plastic surgery [facility] April 2024
--- OUTSIDE RECORDS SUMMARY | 2025-09-12 10:29 | XMS_ITS | Encounter Summary ---
Author Organization [facility] Address [address] [place] [address] Phone Care Team Providers Care Neurophysiological Technician Name Role Phone Mariely Vargas MD Primary Care Provider Lindsay Perales MD Unavailable Richard Eden DO, Justine Unavailable [phone] Maribel Nur MD, MPH Unavailable Kezia Webb MD Unavailable [phone] Lor Bal MD Unavailable [phone] Mynor Coats MD Unavailable Eliseo Rand RN Unavailable Ayaka [email or web address] Coppola.[facility] Grover Barbosa MD Unavailable Neville Torres MD Unavailable + [phone] Kya Diaz RN Unavailable Naga [email or web address] HERBERT.[facility] Yvonne Lewis Unavailable [phone] Brennon Delcid MD, MPH Unavailable + Cathy Schmidt PA-C Unavailable + Encounter Details Date Type Department Care Team (Late st Contact Info) Description 06/07/2025 Transcribe Orders [facility] [address] [place] [address] Mariely Vargas MD [address] [facility] [address] [place] [address] Social History Tobacco Use Types Packs/Day Years [...] Contact Info) Description 06/21/2025 Procedure Pass [facility] Imaging Department, [facility], [facility] [address] [facility], Floor L1 [place] [address] 07/24/2025 Procedure Pass [facility] Imaging Department, [facility], MRI [address] [facility], Floor [address]1 [place] [address] 09/13/2025 9:30 AM EST Blood Draw [facility] Imaging Department, [facility], Imaging Gmiau-rd-Dnfe [address] [facility], [address]1 [place] [address] Libertad Ramos DO [address] [place] [address] [email or web address] 09/13/2025 12:30 PM EST Appointment [facility] Imaging Department, [facility], PET/CT [address] [place] [address] Libertad Ramos DO [address] [place] [address] [email or web address] 09/13/2025 1:40 PM EST Appointment [facility] Imaging Department, [facility], [facility] [address] [facility], Floor [address]1 [place] [address] Cathy Schmidt PA-C [address] [place] [address] [place] [address] Brennon Delcid MD, MPH [address] [place] [address], [facility]- L2 [place] [address] Richard@[email or web address] 09/13/2025 3:30 PM EST Office Visit [facility], [address], 11th [place] [address] Brennon Delcid MD, MPH [address] [place] [address], [facility]- L2 [place] [address] Richard@[email or web address] 09/15/2025 8:30 AM EST Office Visit [facility], [address], 11th [place] [address] Maribel Nur MD, MPH [address] [place] [address] Loida@[facility] 09/19/2025 10:00 AM EST Telemedicine [facility], [address], 5th [place] [address] Libertad Ramos DO [address] [place] [address] [email or web address] 10/04/2025 1:20 PM EST Office Visit [facility] [address] [place] [address] Alla Escobar MD [address] [place] [address] 3rd [place] [address] 10/26/2025 11:40 AM EST Appointment Erika L[facility] Imaging Department, [facility], MRI [address] [facility], Floor [address]1 [place] [address] Libertad Ramos DO [address] [place] [address] [email or web address] 11/07/2025 10:30 AM EST Blood Draw [facility] Services, [address], 2nd [place] [address] Darinel Ordaz M.D. Leukemia MD Mike [address] [place], [place] [phone] [place] [address] Elena@[facility] 11/07/2025 11:30 AM EST Office Visit [facility], Division of Hematologic Oncology, [address], 8th [place] [address] Darinel Ordaz M.D. Leukemia MD Mike [address] [place], [place] [phone] [place] [address] Elena@[facility] 11/30/2025 11:00 AM EST Office Visit Oral Medicine, [address], 11th [place] [address] Hao Robertson, DMD, PhD [address] [place] [address] [email or web address] documented as of this encounter Visit Diagnoses Not on filedocumented in this encounter Care Teams Neurophysiological Technician Relationship Specialty Start Date End Date Mariely Vargas MD [address] [address] PCP - General Internal Medicine 03/29/24 Lindsay Perales MD [address] [place] [address] [email or web address] Radiation Oncology 07/12/24 Libertad Ramos DO [address] [place] [address] [email or web address] Medical Oncology 12/22/24 Maribel Nur MD, MPH [address] [place] [address] Loida@[facility] Otolaryngology 12/22/24 Kezia Webb MD [address] [place] [address] [email or web address] Dermatology 12/22/24 Lor Bal MD [address] [place] [id number] Wendy Chavarria@[place] Internal Medicine 12/22/24 Mynor Coats MD 3455 [facility] 5 [place] [address] Dermatology 01/02/25 Eliseo Rand, PHILIPPE [address] [place] [address] Zoe@[email or web address] Associate Infusion Nurse 01/02/25 Grover Barbosa MD [address] [place] [address] [place] [address] Retail Loss Prevention Officer Pulmonary Disease 01/05/25 Neville Torres MD 3640 [facility] 103 [place] [address] [email or web address] Urology 01/27/25 Kya Diaz RN 3640 [facility] 103 [place] [address] Silvia@[email or web address] Associate Infusion Nurse 01/23/25 Yvonne Lewis [address] [place] [address] [email or web address] Licensing Worker 04/13/25 Brennon Delcid MD, MPH [address] [place] [address], [facility]- L2 [place] [address] [email or web address] Radiation Oncology 06/02/25 Cathy Schmidt PA-C [address] [place] [address] [place] [address] [email or web address] Physician Workforce Manager 06/14/25 documented as of this encounter Additional Source Comments The information contained in this document represents components of the legal health record. It is not the complete legal health record.[facility]
--- OUTSIDE RECORDS SUMMARY | 2025-09-12 10:29 | XMS_ITS | Encounter Summary ---
Author Organization [facility] Address [address] [facility] [address] [place] [address] Phone Care Team Providers Care Licensed Optical Dispenser Name Role Phone Mariely Vargas MD Primary Care Provider Lindsay Perales MD Unavailable [phone] Richard Eden DO, Justine Unavailable [phone] Maribel Nur MD, MPH Unavailable Kezia Webb MD Unavailable [phone] Lor Bal MD Unavailable [phone] Mynor Coats MD Unavailable [phone] Eliseo Rand RN Unavailable Ayaka Grier@[email or web address] [employer].[facility] Grover Barbosa MD Unavailable Neville Torres MD Unavailable + [phone] Kya Diaz RN Unavailable Naga Raygoza@[email or web address] HERBERT.[facility] Yvonne Lewis Unavailable [phone] Brennon Delcid MD, MPH Unavailable + Cathy Schmidt PA-C Unavailable + Encounter Details Date Type Department Care Team (Late st Contact Info) Description 01/27/2025 Procedure Pass [facility] [address] [place] [address] Social History Tobacco Use Types Packs/Day Years [...] Info) Description 06/21/2025 Procedure Pass [facility] Imaging Department, [facility], [place] [address] [facility], Floor L1 [place] [address] 07/24/2025 Procedure Pass [facility] Imaging Department, [facility], MRI [address] [facility], Floor L1 [place] [address] 09/13/2025 9:30 AM EST Blood Draw [facility] Imaging Department, [facility], Imaging Snann[employer] [address] [facility], Floor L1 [place] [address] Libertad Ramos DO [address] [place] [address] [email or web address] 09/13/2025 12:30 PM EST Appointment [facility] Imaging Department, [facility], PET/CT 450 [place] [address] Libertad Ramos V DO [address] [place] [address] [email or web address] 09/13/2025 1:40 PM EST Appointment [facility] Imaging Department, [facility] [place], [place] [address] [facility], Floor L1 [place] [address] Cathy Schmidt PA-C [address] [place] [address] [place] [address] [email or web address] Brennon Delcid MD, MPH [address] [place] [address] [email or web address] 09/13/2025 3:30 PM EST Office Visit [facility], [facility] [address], [address]th [place] [address] Brennon Delcid MD, MPH [address] [place] [address] [email or web address] 09/15/2025 8:30 AM EST Office Visit [facility], [facility] [place] [address] [place] [address], 11th [place] [address] Maribel Nur MD, MPH [address] [place] [address] Loida@[facility] 09/19/2025 10:00 AM EST Telemedicine [facility], [facility] [address], 5th [place] [address] Libertad Ramos DO [address] [place] [address] [email or web address] 10/04/2025 1:20 PM EST Office Visit [facility] [address] [place] [address] Alla Escobar MD [address] [place] [address] 3rd [place] [address] 10/26/2025 11:40 AM EST Appointment Erika Lank Imaging Department, [facility], MRI [address] [facility], Floor L1 [place] [address] Libertad Ramos DO [address] [place] [address] [email or web address] 11/07/2025 10:30 AM EST Blood Draw [facility] Services, [address], 2nd Floor [place], [place] Darinel Ordaz M.D. Leukemia MD stephon [address] [place], [place] [phone] [place] [address] [email or web address]@[email or web address] 11/07/2025 11:30 AM EST Office Visit [facility], Division of Hematologic Oncology, [address], 8th [place] [address] Darinel Ordaz M.D. Leukemia MD Mike [address] [place], [place] [phone] [place] [address] Elena@[email or web address] 11/30/2025 11:00 AM EST Office Visit Oral Medicine, [address], 11th [place] [address] Hao Robertson DMD, PhD [address] [place] [address] [email or web address] documented as of this encounter Visit Diagnoses Not on filedocumented in this encounter Care Teams Licensed Optical Dispenser Relationship Specialty Start Date End Date Gul, Mariely Caldwell MD [address] [facility] 202 [place] [address] PCP - General Internal Medicine 03/29/24 Lindsay Perales MD [address] [place] [address] [email or web address] Radiation Oncology 07/12/24 Libertad Ramos DO [address] [place] [address] [email or web address] Medical Oncology 12/22/24 Maribel Nur MD, MPH [address] [place] [address] Loida@[facility] Otolaryngology 12/22/24 Kezia Webb MD [address] [place] [address] [email or web address] Dermatology 12/22/24 Lor Bal MD [address] [place] [phone] Wendy [email or web address]@[email or web address] Internal Medicine 12/22/24 Mynor Coats MD [address] [address] Dermatology 01/02/25 Eliseo Rand RN [address] [place] [address] [email or web address] Associate Infusion Nurse 01/02/25 Grover Barbosa MD [address] [place] [address] [place] [address] Electronic Service Technician Pulmonary Disease 01/05/25 Neville Torres MD [address] [address] [email or web address] Urology 01/27/25 Kya Diaz RN [address] [address] [email or web address] Associate Infusion Nurse 01/23/25 Yvonne Lweis [address] [place] [address] [email or web address] Tag Marker 04/13/25 Brennon Delcid MD, MPH [address] [place] [address], [facility]- [address] [address] Richard@[email or web address] Radiation Oncology 06/02/25 Cathy Schmidt PA-C [address] [place] [address] [place] [address] [email or web address] Physician Woodworking Bench Carpenter 06/14/25 documented as of this encounter Additional Source Comments The information contained in this document represents components of the legal health record. It is not the complete legal health record.[facility]
--- OUTSIDE RECORDS SUMMARY | 2025-09-12 10:29 | XMS_ITS | Clinical Summary ---
Author Organization [facility] Address [address] [facility] [address] [place] [phone] Phone Care Team Providers Care Crepe Maker Name Role Phone Mariely Vargas MD Primary Care Provider Lindsay Perales MD Unavailable Richard Eden DO, Justine Unavailable [phone] Maribel Nur MD, MPH Unavailable Kezia Webb MD Unavailable Lor Bal MD Unavailable [phone] Mynor Coats MD Unavailable Eliseo Rand RN Unavailable [email or web address] Grover Barbosa MD Unavailable [phone] Neville Torres MD Unavailable [phone] Kya Diaz RN Unavailable [email or web address] Yvonne Lewis Unavailable [phone] Brennon Delcid MD, MPH Unavailable + [...] a day. 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 500 mL 6 08/16/20 25 Active sodium chloride 0.9 % nebulizer solutionIndicat ions:Pneumonia of both lungs due to infectious organism, unspecified part of lung Take 3 mL by nebulization as needed (thick secretions). 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 500 mL 6 08/03/20 25 025 Discontin ued(Reord er) sodium chloride 0.9 % nebulizer solutionIndicat ions:Pneumonia of both lungs due to infectious organism, unspecified part of lung Take 3 mL by nebulization as needed (thick secretions). 90 mL 12 08/15/20 25 025 Discontin ued(Reord er) sodium chloride 0.9 % nebulizer solutionIndicat ions:Pneumonia of both lungs due to infectious organism, unspecified part of lung Take 3 mL by nebulization as needed (thick secretions). 90 mL 12 08/16/20 25 025 Discontin ued(Reord er) Active Problems Problem Noted Date Diagnosed Date [...] He may elect to also see a cafe team member at [facility] while he is here [...] and looking forward to his trip to [place]. Cutaneous squamous cell carcinoma, locally advanced - [...] FNA of this nodule on 01/08/2023 at [facility] and the cytology was insufficient for diagnosis. [...] FNA of this nodule on 01/08/2023 at [facility] and the cytology was insufficient for diagnosis. [...] Encounters Date Type Department Care Team Description 09/05/2025 11:00 AM EDT Nutrition Nutrition Department, [place] [address] Zenobia Hebert LDN Protein-calorie malnutrition, unspecified severity (Primary Dx) 08/31/2025 11:00 AM EDT [facility], [address], [address] [place] [phone] Maribel Nur MD, MPH Shoshana Fernandez, BEBETO-PHYSICIAN NON INVASIVE CARDIOLOGIST Dysphagia, oropharyngeal phase (Primary Dx) 08/31/2025 10:00 AM EDT Office Visit Oral Medicine, [address], [address] [place] [address] Hao Robertson, DMD, PhD History of radiation to head and neck region (Primary Dx); Mucositis oral; Xerostomia 08/28/2025 Orders Only [facility] Department of Radiation Oncology [address] [place] [address], [address] [place] [phone] Cathy Schmidt PA-C 08/24/2025 10:00 AM EDT - 08/24/2025 11:59 PM EDT Hospital Encounter [facility] Department of Radiation Oncology [address] [place] [address], [place] [address] [place] [address] Cathy Schmidt PA-C Schoenfeld, Jonathan D, MD, MPH Discharge Disposition: Home or Self Care 08/16/2025 11:30 AM EDT [facility], [address] [place] [address] [facility], MPH Shoshana Fernandez, [facility]-PHYSICIAN NON INVASIVE CARDIOLOGIST Dysphagia, oropharyngeal phase (Primary Dx) 08/16/2025 11:05 AM EDT - 08/16/2025 11:59 PM EDT Hospital Encounter [facility] Department of Radiation Oncology [address] [place] [address], [address] [place] [phone] Cathy Schmidt PA-C Schoenfeld, Jonathan D, MD, MPH Discharge Disposition: Home or Self Care 08/15/2025 Orders Only [facility] Department of Radiation Oncology [address] [place] [address], [address]2 [place] [address] Cathy Schmidt PA-C Pneumonia of both lungs due to infectious organism, unspecified part of lung (Primary Dx) 08/14/2025 Orders Only [facility] Department of Radiation Oncology [address] [place] [address], [address]2 [place] [address] Brayan, Cathy Fording, PA-C Pneumonia of both lungs due to infectious organism, unspecified part of lung (Primary Dx); 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 08/10/2025 1:30 PM EDT - 08/10/2025 11:59 PM EDT Hospital Encounter [facility] Department of Radiation Oncology [address] [facility], [address] [place] [address] Cathy Schmidt PA-C Schoenfeld, Jonathan D, MD, MPH Discharge Disposition: Home or Self Care 08/10/2025 11:45 AM EDT - 08/10/2025 1:29 PM EDT Hospital Encounter [facility], [facility], Radiography [address] [facility], [address] [place] [address] Cathy Schmidt PA-C Schoenfeld, Jonathan D, MD, MPH Discharge Disposition: Home or Self Care 08/10/2025 11:30 AM EDT Office Visit Oral Medicine, [address], [address] [place] [address] Hao Robertson DMD, PhD Mucositis oral (Primary Dx); Squamous cell carcinoma of parotid; History of radiation to head and neck region 08/10/2025 E-Consult [facility] [address] [place] [address] Ellie Scruggs MD 08/10/2025 Documentation Oral Medicine, [address], [address]th [place] [address] Esperanza Smith DMD 08/08/2025 11:45 AM EDT Nutrition Nutrition Department, [address] [address] Brennon Delcid MD, MPH Zenobia Hebert LDN Protein-calorie malnutrition, unspecified severity (Primary Dx) 08/08/2025 Orders Only [facility] Department of Radiation Oncology [address] [place] [address], [address] [place] [address] Cathy Schmidt PA-C Acquired hypothyroidism (Primary Dx) 08/03/2025 1:00 PM EDT Procedure visit Respiratory Therapy Department, [place] [address] Darinel Ordaz M.D. 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; Polycythemia vera; Lumbar herniated disc; Mucositis; Acquired hypothyroidism; Fatigue, unspecified type 08/03/2025 10:00 AM EDT Office Visit [facility], [address], [address] [place] [phone] Britany Kaplan MD, MPH Oral ulcer (Primary Dx); Mucositis; Squamous cell carcinoma of skin; Actinic keratoses 08/03/2025 Orders Only [facility] Department of Radiation Oncology [address] [place] [address], [address] [place] [address] Cathy Schmidt PA-C 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 (Primary Dx); Excessive oral secretions 08/01/2025 Orders Only [facility] Department of Radiation Oncology [address] [place] [address], [address] [place] [address] Cathy Schmidt PA-C 07/26/2025 Orders Only [facility] Department of Radiation Oncology [address] [facility], [address] [place] [address] Cathy Schmidt PA-C 07/26/2025 Documentation [facility], [address], 11th [place] [address] Shoshana Fernandez, BEBETO-PHYSICIAN NON INVASIVE CARDIOLOGIST 07/25/2025 Telephone [facility], [address], 5th [place] [address] Mary Larsen, PHILIPPE Symptom Management 07/24/2025 Orders Only [facility], [facility] [address] [facility], 5th [place] [address] Libertad Ramos DO Renal mass (Primary Dx) 07/23/2025 Refill [facility], [facility] [address] [facility], [address] [place] [address] Chandler Bernabe MD, PhD Med Change Request 07/20/2025 Orders Only [facility], [address], 5th [place] [address] Libertad Ramos DO 07/20/2025 Telephone [facility], [address], [address] [place] [address] Eliz Huynh, RN Symptom Management 07/20/2025 Telephone [facility], [address], [address] [place] [address] Eliz Huynh, RN Care Coordination 07/20/2025 Orders Only [facility] Department of Radiation Oncology [address] [facility], [address] [place] [phone] Cathy Schmidt PA-C 07/18/2025 Telephone [facility] Department of Radiation Oncology [address] [facility], [address] [place] [address] Brennon Delcid MD, MPH call back (Yuriy Morgan, this patient left a voice mail requesting a call back to discuss some symptoms that are not going away, he mentioned Thrush, please advise, thanks.) 07/15/2025 Orders Only [facility], [address], 5th [place] [address] Libertad Ramos V, Renal mass (Primary Dx) 07/14/2025 2:30 PM EDT Office Visit [facility], Division of Hematologic Oncology, [address], 8th [place] [address] Darinel Ordaz M.D. 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 Leukemia MD Mike Discharge Disposition: Home or Self Care 07/14/2025 10:00 AM EDT Office Visit [facility], [address], [address]th [place] [address] Maribel Nur MD, MPH Squamous cell carcinoma, scalp/neck (Primary Dx) 07/13/2025 11:00 AM EDT Nutrition Nutrition Department, [place] [phone] Zenobia Hebert LDN Dietary counseling and surveillance (Primary Dx) 07/05/2025 2:20 PM EDT Office Visit [facility] [address] [place] [address] Keith Bolton MD Lumbar disc herniation with radiculopathy (Primary Dx) 06/29/2025 Documentation Nutrition Department, [facility] [address] [place] [address] Zenobia Hebert HARJINDER Slaughter 06/26/2025 Ancillary Orders [facility] [address] [place] [address] Keith Bolton MD 06/26/2025 Ancillary Orders [facility] [address] [place] [address] Keith Bolton MD 06/26/2025 Ancillary Orders [facility] [address] [place] [address] Keith Bolton MD 06/26/2025 Ancillary Orders [facility] [address] [place] [address] Keith Bolton MD 06/21/2025 10:58 AM EDT - 06/21/2025 11:59 PM EDT Hospital Encounter [facility] Department of Radiation Oncology [address] [facility], [address] [place] [address] Cathy Schmidt PA-C Schoenfeld, Jonathan D, MD, MPH Discharge Disposition: Home or Self Care 06/21/2025 Orders Only [facility], [facility] [address] [facility], 11th [place] [address] Cathy Schmidt PA-C Squamous cell carcinoma, scalp/neck (Primary Dx) 06/15/2025 12:10 AM EDT - 06/15/2025 11:59 PM EDT Hospital Encounter [facility] [address] [place] [address] Keith Bolton MD Discharge Disposition: Home or Self Care 06/15/2025 12:05 AM EDT - 06/15/2025 12:09 AM EDT Hospital Encounter [facility] [address] [place] [address] Keith Bolton MD Discharge Disposition: Home or Self Care 06/15/2025 - 06/15/2025 12:04 AM EDT Hospital Encounter [facility] [address] [place] [address] Keith Bolton MD Discharge Disposition: Home or Self Care 06/14/2025 2:15 PM EDT Nutrition Nutrition Department, [facility] [address] [place] [address] Brennon Delcid MD, MPH Zenobia Hebert LDN Dietary counseling and surveillance (Primary Dx) 06/14/2025 1:00 PM EDT Office Visit [facility], [address], 5th [place] [address] Libertad Ramos DO Squamous cell carcinoma of skin (Primary Dx); Rash and other nonspecific skin eruption; Polycythemia vera; Acquired hypothyroidism; Lumbar herniated disc 06/14/2025 10:25 AM EDT - 06/14/2025 11:59 PM EDT Hospital Encounter [facility] Department of Radiation Oncology [address] [place] [address], [address] [place] [address] Brennon Delcid MD, MPH Discharge Disposition: Home or Self Care 06/14/2025 Radiation Completion Encounter [facility] Department of Radiation Oncology [address] [place] [address], [address] [place] [address] Brennon Delcid MD, MPH 06/13/2025 11:30 AM EDT [facility], [address], [address]th [place] [address] Libertad Ramos DO Burke, Elaine, [facility]-PHYSICIAN NON INVASIVE CARDIOLOGIST Dysphagia, oropharyngeal phase (Primary Dx) 06/13/2025 10:17 AM EDT - 06/13/2025 11:59 PM EDT Hospital Encounter [facility] Department of Radiation Oncology [address] [facility], [address] [place] [address] Brennon Delcid MD, MPH Discharge Disposition: Home or Self Care 06/13/2025 10:17 AM EDT Hospital Encounter [facility] Department of Radiation Oncology [address] [facility], [address] [place] [address] Brennon Delcid MD, MPH Discharge Disposition: Home or Self Care 06/12/2025 2:35 PM EDT - 06/12/2025 11:59 PM EDT Hospital Encounter [facility] Department of Radiation Oncology [address] [facility], [address] [place] [address] Brennon Delcid MD, MPH Discharge Disposition: Home [...] Sign Reading Time Taken Comments Blood Pressure 142/67 08/31/2025 9:54 AM EDT Pulse 82 08/31/2025 9:54 AM EDT Temperature 36.2 C (97.2 F) 08/31/2025 9:54 AM EDT Respiratory Rate 18 08/31/2025 9:53 AM EDT Oxygen Saturation 89% 08/31/2025 9:54 AM EDT Inhaled Oxygen Concentration 100% 12:33 PM EDT Weight 76.2 kg (167 lb 15.9 oz) 08/31/2025 9:53 AM EDT Height 174.3 cm (5' 8.62 ) 07/05/2025 2:01 PM ED T Body Mass Index 25.08 07/05/2025 2:01 PM EDT Plan of Treatment Upcoming Encounters Date Type Department Care Team (Late st Contact Info) Description 06/21/2025 Procedure Pass [facility], [facility], [place] [address] [facility], [address]1 [place] [address] 07/24/2025 Procedure Pass [facility], [facility], MRI [address] [facility], [address] [place] [address] 09/13/2025 9:30 AM EST Blood Draw [facility] Imaging Department, [facility], Imaging [id number] [address] [facility], [address] [place] [address] Libertad Ramos V, DO [address] [place] [phone] [email or web address] 09/13/2025 12:30 PM EST Appointment [facility] Imaging Department, [facility], PET/CT [address] [place], [place] Libertad Ramos V, DO [address] [place] [address] [email or web address] 09/13/2025 1:40 PM EST Appointment [facility] Imaging Department, [facility], [place] [address] [facility], [address] [place] [address] Cathy Schmidt PA-C [address] [place], [place] [address]am [place] [address] [email or web address] Brennon Delcid MD, MPH [address] [facility], ASB1- [address]2 [place] [address] [email or web address] 09/13/2025 3:30 PM EST Office Visit [facility], [facility] [address] [facility], [address] [place] [address] Brennon Delcid MD, MPH [address] [facility], ASB1- [address]2 [place] [address] [email or web address] 09/15/2025 8:30 AM EST Office Visit [facility], [address], 11th [place] [address] Maribel Nur MD, MPH [address] [place] [address] [email or web address] 09/19/2025 10:00 AM EST Telemedicine [facility], [address], 5th [place] [address] Libertad Ramos DO [address] [place] [phone] [email or web address] 10/04/2025 1:20 PM EST Office Visit [facility] [address] [place] [address] Alla Escobar MD [address] [place] [address] [address] [place] [address] 10/26/2025 11:40 AM EST Appointment [facility], [facility], MRI [address] [facility], [address] [place] [address] Libertad Ramos DO [address] [place] [address] [email or web address] 11/07/2025 10:30 AM EST Blood Draw Laboratory Services, [facility] [address] [facility], 2nd [place] [address] Darinel Ordaz M.D. Leukemia MD Mike [address] [place] [address] [email or web address] 11/07/2025 11:30 AM EST Office Visit [facility], Division of Hematologic Oncology, [facility] [address] [facility], 8th [place] [address] aDrinel Ordaz M.D. Leukemia MD Mike [address] [place], [place] [address] [place] [phone] [email or web address] 11/30/2025 11:00 AM EST Office Visit Oral Medicine, [facility] [address] [facility], 11th [place] [address] Hao Robertson, DMD, PhD [address] [place] [phone] [email or web address] Health Maintenance Due Date Last Done Comments Adult Td,Tdap Booster 1951 DEPRESSION SCREENING 1963 ZOSTER VACCINES (1 of 2) 1970 COLOGUARD 1996 COLONOSCOPY 1996 COLORECTAL CANCER SCREENING 1996 FIT TEST 1996 FOBT 1996 SIGMOIDOSCOPY 1996 VIRTUAL COLONOSCOPY 1996 RSV VACCINE (1 - Risk 50-74 years 1-dose series) 2001 DIABETIC EYE EXAM 01/29/2023 LIPID PANEL 12/31/2024 12/31/2023, 12/31/2023 URINE MICROALBUMIN/CREATININE RATIO 12/31/2024 12/31/2023 COVID-19 VACCINE (2024- season) 2025 09/04/2025, 09/04/2022, 03/06/2022, Additional history exists HEMOGLOBIN A1C 12/15/2025 06/14/2025, 03/02/2025, 12/31/2023, Additional history exists BLOOD PRESSURE 03/01/2026 08/31/2025 TSH LEVEL 08/10/2026 08/10/2025, 0811/2024, 05/30/2025, Additional history exists HEPATITIS C SCREENING Completed 01/02/2025, 025 SMOKING STATUS SCREENING (Once After 26 Yrs) Completed 03/29/2025 INFLUENZA VACCINE Completed 09/04/2025, , 09/01/2023, Additional history exists PNEUMOCOCCAL VACCINES (50+ years) Completed 09/04/2025 HEPATITIS A VACCINES Aged Out No long [...] this topic Medical Devices Implanted Type Area Locker Plant Attendant Device Identifier Shelf Expiration Date Model / Serial / Lot Ivc Filter Procedures Procedure Name Priority Date/Time Associated Diagnosis Comments XR CHEST PA AND LATERAL 2 VIEWS Routine 08/10/2025 12:51 PM EDT Acquired hypothyroidism IRON AND IRON BINDING CAPACITY Routine 08/10/2025 12:50 PM EDT Acquired hypothyroidism THYROID STIMULATING HORMONE (TSH) Routine 08/10/2025 12:50 PM EDT Acquired hypothyroidism COMPREHENSIVE METABOLIC PANEL (CMP) Routine 08/10/2025 12:50 PM EDT Acquired hypothyroidism [...] 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 COMPREHENSIVE METABOLIC PANEL (CMP) Routine 07/14/2025 11:49 AM EDT Myelofibrosis transformed [...] Routine 06/15/2025 12:00 AM EDT HEMOGLOBIN A1C, MANCOS SENDOUT Routine 06/14/2025 2:10 PM EDT Squamous [...] SESSION SUMMARY Routine 06/12/2025 3:32 PM EDT HEPATITIS B SURFACE ANTIGEN Routine 01/02/2025 1:50 PM EST Squamous cell carcinoma of skin MICROALBUMIN/CREATININ E RATIO, RANDOM URINE Routine 12/31/2023 [...] IMG RECOMMENDATION COMMENT Left lower lobe pneumonia [facility] Anatomical Region Laterality Modality Chest Computed Radiogr [...] clinician's provided indication for this examination in [facility]: Cough; history of CLL, polycythemia vera, [...] clinician's provided indication for this examination in [facility]:Cough; history of CLL, polycythemia vera, and [...] and documented using a closedloop communication system. Cathy Schmidt PA-C IMJake XR CHEST Fi nal Result * (ABNORMAL) Comprehensive metabolic panel (08/10/2025 12:50 PM EDT) Only the most recent of2 resultswithin the time period is included. SODIUM 140 136 - 145 mmol/L [facility] POTASSIUM 4.0 3.4 - 5.1 mmol/L [facility] CHLORIDE 102 98 - 107 mmol/L [facility] CO2 24 22 - 31 mmol/L [facility] BUN 13 6 - 23 mg/dL [facility] CREATININE 0.68 0.50 - 1.20 mg/dL [facility] GLUCOSE 118(H) 70 - 100 mg/dL [facility] ALBUMIN 4.3 3.5 - 5.2 g/dL [facility] TOTAL PROTEIN 6.7 6.4 - 8.3 g/dL [facility] CALCIUM 9.7 8.8 - 10.7 mg/dL [facility] ALKALINE PHOSPHATASE 106 40 - 129 U/L [facility] TOTAL BILIRUBIN 0.5 0.2 - 1.2 mg/dL [facility] AST 20 <41 U/L [facility] ALT 15 <42 U/L [facility] GLOBULIN 2.4 2.3 - 4.2 g/dL [facility] EGFR 98 >59 mL/min/1.7 3m2 [facility] Comment:Estimated glomerular filtration rate calculated using the CKD-EPI refit equation. ANION GAP 14 7 - 17 mmol/L [facility] Blood 08/10/2025 12:5 0 PM EDT 08/10/2025 1:29 PM EDT Cathy Schmidt PA-C LAB BLOOD BKR AMRIT MONTERROSOALLEY Final Result Performing Organization Address [facility] Co de Phone Number [facility] [address] [place] [phone] * (ABNORMAL) Iron and iron binding capacity (08/10/2025 12:50 PM EDT) IRON 57(L) 59 - 158 ug/dL [facility] IRON BINDING CAPACITY 241 220 - 460 ug/dL [facility] TRANSFERRIN SATURAT. 24 14 - 50 % [facility] Blood 08/10/2025 12:5 0 PM EDT 08/10/2025 1:29 PM EDT Cathy Schmidt PA-C LAB BLOOD BKR ORDE KRISSALLEY Final Result Performing Organization Address City/[facility] Co de Phone Number [facility] [address] [place] [address] * (ABNORMAL) CBC and differential (08/10/2025 12:50 PM EDT) Only the most recent of2 resultswithin the time period is included. WBC 18.62(H) 4.00 - 10.00 K/uL [facility] RBC 3.96(L) 4.50 - 6.40 M/uL [facility] HGB 10.2(L) 13.5 - 18.0 g/dL [facility] HCT 34.2(L) 40.0 - 54.0 % [facility] PLT 480(H) 150 - 450 K/uL [facility] MCV 86.4 80.0 - 100.0 fL [facility] MCH 25.8(L) 27.0 - 32.0 pg [facility] MCHC 29.8(L) 32.0 - 36.0 g/dL [facility] RDW 21.0(H) 11.5 - 14.5 % [facility] MPV 10.9 8.4 - 12.0 fL [facility] NRBC 0.20(H) 0 /100 WBCs [facility] ABSOLUTE NRBC 0.04(H) 0 K/uL [facility] DIFF METHOD MANUAL [facility] NEUTS (MANUAL) 90.8(H) 48.0 - 76.0 % [facility] LYMPHS 3.1(L) 18.0 - 41.0 % [facility] BANDS 2.3 0.0 - 3.0 % [facility] MONOS 0.8(L) 4.0 - 11.0 % [facility] EOSINOPHIL 0.7 0.0 - 5.0 % [facility] BASOPHIL 0.0 0.0 - 1.5 % [facility] BLASTS 0.0 0 % [facility] MYELOS 1.5(H) 0 % [facility] METAS 0.8(H) 0 % [facility] ABSOLUTE NEUTS 16.91(H) 1.92 - 7.60 K/uL [facility] ABSOLUTE LYMPHS 0.58(L) 0.72 - 4.10 K/uL [facility] ABSOLUTE BANDS 0.43(H) 0.00 - 0.30 K/uL [facility] ABSOLUTE MONOS 0.15(L) 0.16 - 1.10 K/uL [facility] ABSOLUTE EOS 0.13 0.00 - 0.50 K/uL [facility] ABSOLUTE BASO 0.00 0.00 - 0.15 K/uL [facility] ABSOLUTE BLASTS 0.00 0 K/uL [facility] ABSOLUTE MYELOS 0.28(H) 0 K/uL [facility] ABSOLUTE METAS 0.15(H) 0 K/uL [facility] ANISO Few [facility] POIKILOCYTOSIS MARKED [facility] POLYCHROME Few [facility] SCHISTOCYTES Moderate [facility] TEAR DROPS MARKED [facility] HYPOCHROMIA Few [facility] MACROCYTES Few [facility] MICROCYTES Moderate [facility] OVALOCYTES MARKED [facility] STOMATOCYTES Few [facility] Blood 08/10/2025 12:5 0 PM EDT 08/10/2025 1:29 PM EDT us Cathy Schmidt PA-C LAB BLOOD BKR AMRIT HI Final Result [facility] [address] [place] [address] * TSH (08/10/2025 12:50 PM EDT) TSH 2.66 0.27 - 4.20 uIU/mL [facility] Blood 08/10/2025 12:5 0 PM EDT 08/10/2025 1:29 PM EDT us Cathy Schmidt PA-C LAB BLOOD BKR ORDFarrah HI Final Result Performing Organization Address City/[facility]/ZIP Co de Phone Number [facility] [address] [place] [address] * (ABNORMAL) Fungal culture (08/03/2025 1:25 PM EDT) Special Requests PLEASE CHECK CULTURE AND SENSITIVITY 08/03/2025 1:25 PM EDT [facility] Fungal Culture Only JOSÉ PARAPSILOSIS(A) 08/13/2025 12:04 PM EDT [facility] Other (Oral*) 08/03/2025 1:2 5 PM EDT 08/03/2025 4:38 PM EDT Comment:OUTER LIPS Narrative Organism Antibiotic Method Susceptibility José parapsilosis Fluconazole LOVE METHOD 16: Resistant José parapsilosis Voriconazole LOVE METHOD <=0.12: Susceptible Comment: Cathy Schmidt PA-C LAB MICROBIOLOGY C ULTURE ORDERABLES Final Result Performing Organization Address City/[facility]/ZIP Co de Phone Number [facility] [address] [place] [id number] [place] [address] CLINICAL LABORATORY [address] [place] [address] * US ABDOMEN COMPLETE (ADULT) (07/14/2025 1:49 PM EDT) MGB IMG RECOMMENDATION COMMENT Differential : renal mass right lower pole cortical; renal right lower pole cortical lesion [facility] Anatomical Region Laterality Modality Abdomen Ultrasound Other [...] for our patients and providers by visiting [email or web address] ATTESTATION: Analia William, as teaching physician have reviewed the images, if any, for this patient's exam, and if necessary, have edited the report originally created by Keith Masters. Narrative 07/14/2025 3:05 PM EDT US ABDOMEN COMPLETE (ADULT) Referring clinician's provided indication for this examination in Epic: Splenomegaly; history of hepatomegaly and splenomegaly evaluate [...] clinician's provided indication for this examination in Epic:Splenomegaly; history of hepatomegaly and splenomegaly evaluate liver [...] reports for our patients and providers by [email or web address] ATTESTATION: Analia William, as teaching physician have reviewed theimages, if any, for this patient's exam, and if necessary, have edited thereport originally created by Keith Masters. us Darinel De La Garza M.D. Leukemia Mike Ordaz MD IMG US ABDOMEN Final Result * Type and Screen (ABO,Rh,Antibody Screen) (07/14/2025 11:49 AM EDT) Expiration Date of Sample 07/17/2025 11:59 PM 07/14/2025 1:37 PM EDT [facility]SF[facility]ION [facility] Resulting Agency [facility]SF[facility]ION [facility] ABO Type A 07/14/2025 1:37 PM EDT [facility] Rh Type Positive 07/14/2025 1:37 PM EDT [facility] Antibody Screen Negative 07/14/2025 1:37 PM EDT [facility] Blood 07/14/2025 11:4 9 AM EDT 07/14/2025 12:06 PM EDT us Darinel De La Garza M.D. Leukemia Mike Ordaz MD LAB BLO OD BANK TEST ORDERABLES Final Result [facility] TRANSFUSION SERVICE [address] [place] [id number] * MRI Spine (Bone) Outside (No Interpretation) (06/15/2025 12:10 AM EDT) Narrative [facility] IMG INTERFACES - 06/26/2025 7:51 AM EDT This study is for PACS storage only and not for interpretation. us Keith Bolton MD IMG OUTSIDE IMAGING W/OUT IN TERPRETATION Final Result [facility] IMG INTERFACES * MRI Spine (Bone) Outside (No Interpretation) (06/15/2025 12:05 AM EDT) Narrative [facility] IMG INTERFACES - 06/26/2025 7:51 AM EDT This study is for PACS storage only and not for interpretation. us Keith Bolton MD IMG OUTSIDE IMAGING W/OUT IN TERPRETATION Edited Result - Final Performing Organization Address City/[facility]/ZIP Co de Phone Number [facility] IMG INTERFACES * MRI Spine (Bone) Outside (No Interpretation) (06/15/2025 12:00 AM EDT) Narrative [facility] IMG INTERFACES - 06/26/2025 7:50 AM EDT This study is for PACS storage only and not for interpretation. us Keith Bolton MD IMG OUTSIDE IMAGING W/OUT IN TERPRETATION Final Result Performing Organization Address City/[facility] Co de Phone Number [facility] IMG INTERFACES * (ABNORMAL) Hemoglobin A1c, sendout (06/14/2025 2:10 PM EDT) HEMOGLOBIN A1C 7.0(H) 4.0 - 5.6 % [facility] DPT OF LAB MED AND PAT+ Comment: (NOTE) Hemoglobin A1c values greater than or equal to 6.5 percent are diagnostic for diabetes mellitus. Diagnosis should be confirmed by repeat testing. In diabetic patients, HbA1c goals should be discussed with healthcare provider. Blood 06/14/2025 2:10 PM EDT 06/14/2025 2:15 PM EDT us Libertad Ramos V, DO LAB BLOOD ORDERABLES Final R esult Performing Organization Address City/[facility] Co de Phone Number [facility] DPT OF LAB MED AND PAT+ [address] [place] [address] * ONC [facility] Follow-up (06/14/2025 2:10 PM EDT) Only the most recent of2 resultswithin the time period is included. [employer] RESULTS SCANNED UNDER MEDIA TAB IN [facility] LIC# [id number] [employer] RESULTS SCANNED UNDER MEDIA TAB IN [facility] LIC# [id number] Blood 06/14/2025 2:10 PM EDT 06/14/2025 2:15 PM EDT us Libertad Ramos V, DO LAB BLOOD BKR ORDERABLES Fin al Result [facility] LIC# [id number] [address] [place] [address] * Rad Onc Aria Session Summary (06/14/2025 11:29 AM EDT) Course ID C1 [facility] Course Intent Curative [facility] Course Start Date 04/13/2025 11:53 AM [facility] Course First Treatment Date 05/10/2025 10:55 AM [facility] Course Last Treatment Date 06/14/2025 11:27 AM [facility] Course Elapsed Days 35 [facility] Plan ID [id number] [...] Y ORDERABLES Final Result Performing Organization Address [facility] Co de Phone Number [facility] * [employer] only (06/14/2025) Only the most recent of2 resultswithin the time period is included. [employer] Test Result Test Not Performed [facility] MTM Readout Test Not Performed [facility] Comment: Two sets of blood samples from the same date of collection were received for this patient; testing was not performed on the duplicate samples. [facility] customer care can be reached by telephone at [phone], by FAX at [phone], and by email at [email or web address]. Please see the attached PDF for more [...] due to limited ctDNA shed. 1 Hilario POE, Lamberto JOSE, Guy GREEN, et al. Personalized circulating tumor DNA analysis as a predictive biomarker in solid tumor patients treated with pembrolizumab. Nature Cancer. 2020;1(9):873-881. 2 Ale MATUTE, Abundio N, et al., Circulating Tumor DNA in Stage III Colorectal Cancer, beyond Minimal Residual Disease Detection, toward Assessment of Adjuvant Therapy Efficacy and Clinical Behavior of Recurrences. Clin Cancer Res. 2020; 28(3):507-517. Methodology FFPE samples are reviewed by a pathologist to assess tumor content and percent tumor nuclei. Tumor DNA is extracted using [employer]sarah Mag-Bind FFPE DNA/RNA kit. Whole genomic DNA is isolated from peripheral blood using QIAamp DNA Blood MiniKit to provide DNA for germline sequencing. Circulating tumor DNA (ctDNA) is extracted from plasma derived from whole blood samples collected in cell-free DNA blood tubes (Decisyon) using the QIALMN-1mpCamping and Cony automated or manual extraction method (Qiagen). Whole-exome sequencing is performed on tumor and peripheral blood DNA using the [employer] whole-exome sequencing assay. Using a proprietary algorithm, [...] and whole exome sequencing is performed at [facility]. (CLIA ID# [id number]) [address] [place] [address]. Disclaimer The extraction, library preparation, and sequencing for this test were performed by [facility] [address], [place] [address] (CLIA ID [id number]). The data analysis and reporting for this test were performed by [facility] [address], [place] [address] (CLIA ID [id number]). This test was developed and its performance characteristics determined by [facility]. The test has not been cleared or approved by the U.S. Food and Drug Administration (FDA). CAP accredited, ISO 35971 certified, and CLIA certified. Pathology services and whole exome sequencing for this test were performed by [facility]. (CLIA ID [id number]) [address] [place], [place] [address] [address] 2020 [employer]. All Rights Reserved. 06/14/2025 us Unknown Unknown MD LAB BLOOD ORDERABLES Final Re sult [facility] [address] [phone] * Rad Onc Aria Session Summary (06/13/2025 [...] [facility] Plan Primary Reference Point A_LEarMeseret [facility] ONCOLOGY Reference Point ID A_GerardoParDawood [facility] ONCOLOG[facility] Reference Point Dosage Given to Date 46 Gy [facility] Reference Point Session Dosage Given 2 Gy [facility]COL[facility] 06/12/2025 3:32 PM EDT us Conversion Provider Not In Sys RADIATION ONCOLOG Y ORDERABLES Final Result Performing Organization Address [facility] Co de Phone Number [facility] RADIATION ONCOLOGY * Hepatitis B surface antigen (01/02/2025 1:50 PM EST) HBV SURFACE ANTIGEN Nonreactive Nonreactive [facility] LIC# [id number] Comment:HBsAg not detected , does not exclude the possibility of exposure to HBV. Blood 01/02/2025 1:50 PM EST 01/02/2025 2:05 PM EST us Libertad Ramos V, DO LAB BLOOD BKR ORDERABLES Fin al Result Performing Organization Address [facility] Co de Phone Number [facility] LIC# [id number] [address] [place] [address] * Microalbumin/creatinine ratio, random urine (12/31/2023 11:24 AM EST) URINE MICROALBUMIN <1.2 0 - 2.3 mg/dL [facility] URINE CREATININE 78 mg/dL [facility] MICROALB/CRE RATIO NOT CALCULATED 0 - 20 mg/g Cre [facility] Comment:due to Microalbumin <1.2 Urine (Urine) 12/31/2023 11: 24 AM EST 12/31/2023 11:26 AM EST us Alla Escobar MD LAB URINE ORDERABLES Final Res ult Performing Organization Address [facility]/ZIP Co de Phone Number [address] [address] * (ABNORMAL) Lipid panel (12/31/2023 11:14 AM EST) HDL 30 mg/dL [facility] Comment: Interpretation <40 mg/dL: Low HDL cholesterol (major risk factor for CHD) Greater than or equal to 60 mg/dL: High HDL cholesterol ( negative risk factor for CHD) HDL - cholesterol is affected by a number of factors, e.g. smoking, excerise, hormones, sex and age. CHOLESTEROL 117 0 - 240 mg/dL [facility] TRIGLYCERIDES 237(H) 30 - 160 mg/dL [facility] LDL 40(L) 50 - 129 mg/dL [facility] Comment: LDL levels in terms of risk for coronary heart disease: <100 mg/dL: Optimal 100-129 mg/dL: Near or above optimal 130-159 mg/dL: Borderline high 160-189 mg/dL: High >190 mg/dL: Very High CARDIAC RISK RATIO 3.9 3.4 - 5.0 C [facility] Blood 12/31/2023 11:1 4 AM EST 12/31/2023 11:17 AM EST us Alla Escobar MD LAB BLOOD BKR ORDERABLES Final Result Performing Organization Address [facility] Co de Phone Number [address] [address] from Last 3 Months or Most Recently Relevant to Health Maintenance Insurance [employer] MEDEX SUPPLEMENT MEDICARE PART A & B [employer] MEDEX SUPPLEMENT MEDICARE PART A & B [employer] MEDEX SUPPLEMENT [employer] MEDEX SUPPLEMENT [employer] MED[employer] SUPP[employer] MEDICARE PART A & B [employer] MEDEX SUPPLEMENT MEDICARE PART A & B [employer] MEDEX SUPPLEMENT MEDICARE PART A & B [employer] MEDEX SUPPLEMENT [employer] MEDEX SUPPLEMENT [place] [id number] Advance Directives For more information, please contact: [phone] (9AM - 5PM [place], Thursday-Thursday) * Full Code (Latest Code Status on File) Date Activated Date Inactivated Comments 03/29/2025 4:35 PM Question Answer Comments Code Status Confirmed With: Patient Care Teams Crepe Maker Relationship Specialty Start Date End Date Mariely Vargas MD [address] [address] PCP - General Internal Medicine 03/29/24 Lindsay Perales MD [address] [place] [id number] [email or web address] Radiation Oncology 07/12/24 Libertad Ramos DO [address] [place] [phone] [email or web address] Medical Oncology 12/22/24 Maribel Nur MD, MPH [address] [place] [phone] [email or web address] 12/22/24 Kezia Webb MD [address] [place] [phone] [email or web address] Dermatology 12/22/24 Lor Bal MD [address] [place] [phone] [email or web address] Internal Medicine 12/22/24 Mynor Coats MD [address] [address] Dermatology 01/02/25 Eliseo Rand, PHILIPPE [address] [place] [address] [email or web address] Associate Infusion Nurse 01/02/25 Grover Barbosa MD [address] [place] [address] [place] [address] Motorcycle Designer Pulmonary Disease 01/05/25 Neville Torres MD [address] [phone] [email or web address] Urology 01/27/25 yKa Diaz, PHILIPPE [address] [email or web address] Associate Infusion Nurse 01/23/25 Yvonne Lewis [address] [place] [phone] [email or web address] Strategic Consultant 04/13/25 Brennon Delcid MD, MPH [address] [place] [address], ASB1- L2 [place] [address] [email or web address] Radiation Oncology 06/02/25 Cathy Schmidt PA-C [address] [place] [address] [place] [address] Physician Home Health Clinical Supervisor 06/14/25 Additional Source Comments The information contained in this document represents components of the legal health record. It is not the complete legal health record.[facility]
--- OUTSIDE RECORDS SUMMARY | 2025-09-12 10:29 | XMS_ITS | Encounter Summary ---
Author Organization [facility] Address [address] [facility] [address] [place] [address] Phone Care Team Providers Care Irrigation Worker Name Role Phone Mariely Vargas MD Primary Care Provider Lindsay Perales MD Unavailable Richard Eden DO, Justine Unavailable [phone] Maribel Nur MD, MPH Unavailable Kezia Webb MD Unavailable [phone] Lor Bal MD Unavailable [phone] Mynor Coats MD Unavailable Eliseo Rand RN Unavailable Ayaka Grier@[email or web address] Coppola.[facility] Grover Barbosa MD Unavailable Neville Torres MD Unavailable + [phone] Kya Diaz RN Unavailable Naga Raygoza@[facility].[email or web address] HERBERT.[facility] Yvonne Lewis Unavailable [phone] Brennon Delcid MD, MPH Unavailable + Cathy Schmidt PA-C Unavailable + Encounter Details Date Type Department Care Team (Late st Contact Info) Description 01/27/2025 Procedure Pass [facility] [address] [place] [address] Social History Tobacco Use Types Packs/Day Years [...] Info) Description 06/21/2025 Procedure Pass [facility], [facility] [place] [address] [facility], Floor L1 [place] [address] 07/24/2025 Procedure Pass [facility], [facility], MRI [address] [facility], Floor L1 [place] [address] 09/13/2025 9:30 AM EST Blood Draw [facility], [facility], Imaging Whmne-lk-Wkwf [address] [facility], Floor L1 [place] [address] Libertad Ramos DO [address] [place] [address] [email or web address] 09/13/2025 12:30 PM EST Appointment [facility], [facility], PET/CT 450 [place] [address] Libertad Ramos V DO 450 [place] [address] [email or web address] 09/13/2025 1:40 PM EST Appointment [facility], [facility] [place] [address] [facility], Floor L1 [place] [address] Cathy Schmidt PA-C [address] [place] [address] [place] [address] [email or web address] Brennon Delcid MD, MPH [address] [place] [address] [email or web address] 09/13/2025 3:30 PM EST Office Visit [facility], [facility] Cancer [address], [address]th [place] [address] Brennon Delcid MD, MPH [address] [place] [address] [email or web address]@[facility] 09/15/2025 8:30 AM EST Office Visit [facility], [facility] [address] [place] [address], 11th [place] [address] Maribel Nur MD, MPH [address] [place] [address] Loida@[facility] 09/19/2025 10:00 AM EST Telemedicine Center for Melanoma, [facility] Cancer [address], 5th [place] [address] Libertad Ramos DO 450 [place] [address] [email or web address] 10/04/2025 1:20 PM EST Office Visit [facility] [address] [place] [address] Alla Escobar MD [address] [place] [address] 3rd [place] [address] 10/26/2025 11:40 AM EST Appointment [facility] Imaging Department, [facility], MRI [address] [facility], Floor L1 [place] [address] Libertad Ramos DO 450 [place] [address] [email or web address] 11/07/2025 10:30 AM EST Blood Draw Laboratory Services, [address], 2nd Floor [place], [place] Darinel Ordaz M.D. Leukemia MD stephon [address] [place], [place] [id number] [place] [address] Elena@[facility] 11/07/2025 11:30 AM EST Office Visit Center for Leukemia, Division of Hematologic Oncology, [address], 8th [place] [address] Darinel Ordaz M.D. Leukemia MD Mike [address] [place], [place] [id number] [place] [address] Elena@[facility] 11/30/2025 11:00 AM EST Office Visit Oral Medicine, [address], 11th [place] [address] Hao Robertson DMD, PhD [address] [place] [address] [email or web address] documented as of this encounter Visit Diagnoses Not on filedocumented in this encounter Care Teams Irrigation Worker Relationship Specialty Start Date End Date Gul, Mariely [place] MD [address] [facility] 202 [place] [address] PCP - General Internal Medicine 03/29/24 Lindsay Perales MD 271 [place] [address] [email or web address] Radiation Oncology 07/12/24 Libertad Ramos DO [address] [place] [address] [email or web address] Medical Oncology 12/22/24 Maribel Nur MD, MPH [address] [place] [address] Loida@[facility] Otolaryngology 12/22/24 Kezia Webb MD [address] [place] [address] [email or web address] Dermatology 12/22/24 Lor Bal MD [address] [place] [phone] Wendy [email or web address] Internal Medicine 12/22/24 Mynor Coats MD [address] [address] Dermatology 01/02/25 Eliseo Rand RN [address] [place] [address] [email or web address]@[facility] Associate Infusion Nurse 01/02/25 Grover Barbosa MD [address] [place] [address] [place] [address] Vendor Management Associate Pulmonary Disease 01/05/25 Neville Torres MD [address] [address] [email or web address] Urology 01/27/25 Kya Diaz RN [address] [address] [email or web address]@D [email or web address] Associate Infusion Nurse 01/23/25 Yvonne Lewis [address] [place] [address] [email or web address] Locomotive Crane Engineer 04/13/25 Brennon Delcid MD, MPH [address] [place] [address], [facility]- [address] [address] Richard@[email or web address] Radiation Oncology 06/02/25 Cathy Schmidt PA-C [address] [place] [address] [place] [address] [email or web address] Physician Leather Polisher 06/14/25 documented as of this encounter Additional Source Comments The information contained in this document represents components of the legal health record. It is not the complete legal health record.[facility]
--- OUTSIDE RECORDS SUMMARY | 2025-09-12 10:29 | XMS_ITS | Encounter Summary ---
Author Organization [facility] Address [address] [facility] [address] [place] [address] Phone Care Team Providers Care Certified Professional Ergonomist Name Role Phone Mariely Vargas MD Primary Care Provider Lindsay Perales MD Unavailable Richard Eden DO, Justine Unavailable [phone] Maribel Nur MD, MPH Unavailable Kezia Webb MD Unavailable [phone] Lor Bal MD Unavailable [phone] Mynor Coats MD Unavailable [phone] Eliseo Rand RN Unavailable Ayaka Grier@[email or web address].[email or web address] Coppola.[facility] Grover Barbosa MD Unavailable [phone] Neville Torres MD Unavailable + [phone] Kya Diaz RN Unavailable Naga Raygoza@[email or web address].[email or web address] HERBERT.[facility] Yvonne Lewis Unavailable [phone] Brennon Delcid MD, MPH Unavailable + Cathy Schmidt PA-C Unavailable + Encounter Details Date Type Department Care Team (Late st Contact Info) Description 08/28/2025 Orders Only [facility] [place] Department of Radiation Oncology [address] [facility], Floor L2 [place] [address] Cathy Schmidt PA-C [address] [facility] [place] [address] [email or web address] [...] st Contact Info) Description 06/21/2025 Procedure Pass [facility] Imaging Department, [facility], [place] [address] [facility], [facility] L1 [place] [address] 07/24/2025 Procedure Pass [facility] Imaging Department, [facility], MRI [address] [facility], [facility] L1 [place] [address] 09/13/2025 9:30 AM EST Blood Draw [facility] Imaging Department, [facility], Imaging Bjneq-nn-Nyxj [address] [facility], Floor L1 [place] [address] Libertad Ramos DO [address] [place] [address] [email or web address] 09/13/2025 12:30 PM EST Appointment [facility] Imaging Department, [facility], PET/CT 450 [place] [address] Libertad Ramos DO [address] [place] [address] [email or web address] 09/13/2025 1:40 PM EST Appointment [facility] Imaging Department, [facility], [place] [address] [facility], Floor L1 [place] [address] Cathy Schmidt, GUEROC [address] [place] [address] [place] [address] Brennon Delcid MD, MPH [address] [place] [address], [facility]1- L2 [place] [address] Richard@[facility] 09/13/2025 3:30 PM EST Office Visit [facility], [address], 11th [place] [address] Brennon Delcid MD, MPH [address] [place] [address], [facility]1- [address]2 [place] [address] Richard@[facility] 09/15/2025 8:30 AM EST Office Visit [facility], [address], 11th [place] [address] Maribel Nur MD, MPH [address] [place] [address] [email or web address]@[facility] 09/19/2025 10:00 AM EST Telemedicine Center for Melanoma, [address], 5th [place] [address] Libertad Ramos DO [address] [place] [address] [email or web address] 10/04/2025 1:20 PM EST Office Visit [facility] [address] [place] [address] Alla Escobar MD [address] [place] [address] 3rd [place] [address] 10/26/2025 11:40 AM EST Appointment [facility] Imaging Department, [facility], MRI [address] [facility], Floor L1 [place] [address] Liebrtad Ramos DO 450 [place] [address] [email or web address] 11/07/2025 10:30 AM EST Blood Draw Laboratory Services, [address], 2nd [place] [address] Darinel Ordaz M.D. Leukemia MD Mike [address] [place] [id number] [place] [address] [email or web address]@[facility] 11/07/2025 11:30 AM EST Office Visit Center for Leukemia, Division of Hematologic Oncology, [address], 8th [place] [address] Darinel Ordaz M.D. Leukemia MD Mike [address] [place], [place] [address] [place] [address] Elena@[facility] 11/30/2025 11:00 AM EST Office Visit Oral Medicine, [address], 11th [place] [address] Hao Robertson, DMD, PhD [address] [place] [address] [email or web address] documented as of this encounter Visit Diagnoses Not on filedocumented in this encounter Care Teams Certified Professional Ergonomist Relationship Specialty Start Date End Date Mariely Vargas MD [address] [address] PCP - General Internal Medicine 03/29/24 Lindsay Perales MD [address] [place] [address] [email or web address] Radiation Oncology 07/12/24 Libertad Ramos DO [address] [place] [address] [email or web address] Medical Oncology 12/22/24 Maribel Nur MD, MPH [address] [place] [address] Loida@[facility] Otolaryngology 12/22/24 Kezia Webb MD [address] [place] [address] [email or web address] Dermatology 12/22/24 Lor Bal MD [address] [place] [phone] Wendy Chavarria@[email or web address] Internal Medicine 12/22/24 Mynor Coats MD [address] [address] Dermatology 01/02/25 Eliseo Rand RN 450 [place] [address] Zoe@[email or web address] Associate Infusion Nurse 01/02/25 Grover Barbosa MD [address] [place] [address] [place] [address] Production Estimator Pulmonary Disease 01/05/25 Neville Torres MD [address] [address] [email or web address] Urology 01/27/25 Kya Diaz, PHILIPPE [address] [address] Silvia@D [facility] Associate Infusion Nurse 01/23/25 Yvonne Lewis [address] [place] [address] [email or web address] Marine Steam Fitter 04/13/25 Brennon Delcid MD, MPH [address] [place] [address], AS[facility]1- [place]2 [place] [address] Richard@d [facility] Radiation Oncology 06/02/25 Cathy Schmidt PA-C [address] [place] [address] [place] [address] [email or web address] Physician Service Line Layer 06/14/25 documented as of this encounter Additional Source Comments The information contained in this document represents components of the legal health record. It is not the complete legal health record.[facility]
--- OUTSIDE RECORDS SUMMARY | 2025-09-12 10:30 | XMS_ITS | Encounter Summary ---
Author Organization [facility] Address [address] [facility] [address] [place] [address] Phone Care Team Providers Care Blue Split Trimmer Name Role Phone Mariely Vargas MD Primary Care Provider [phone] Lindsay Perales MD Unavailable Richard Eden DO, Justine Unavailable [phone] Maribel Nur MD, MPH Unavailable Kezia Webb MD Unavailable [phone] Lor Bal MD Unavailable [phone] Mynor Coats MD Unavailable Eliseo Rand RN Unavailable Ayaka Grier@[email or web address].[email or web address] Coppola.[facility] Grover Barbosa MD Unavailable [phone] Neville Torres MD Unavailable + [phone] Kya Diaz RN Unavailable Naga Raygoza@[email or web address] HERBERT.[facility] Yvonne Lewis Unavailable [phone] Brennon Delcid MD, MPH Unavailable + Cathy Schmidt PA-C Unavailable + Encounter Details Date Type Department Care Team (Late st Contact Info) Description 08/15/2025 Orders Only [facility] [place] Department of Radiation Oncology [address] [facility], Floor L2 [place] [address] Cathy Schmidt PA-C [address] [facility] [place] [address] [email or web address] Pneumonia of both lungs due to infectious [...] Contact Info) Description 06/21/2025 Procedure Pass [facility] Imaging Department, [facility], [place] [address] [facility], Floor L1 [place] [address] 07/24/2025 Procedure Pass [facility] Imaging Department, [facility], MRI [address] [facility], Floor L1 [place] [address] 09/13/2025 9:30 AM EST Blood Draw [facility] Imaging Department, [facility], Imaging Dgpyb-bd-Ifnx [address] [facility], Floor L1 [place] [address] Libertad Ramos DO [address] [place] [address] [email or web address] 09/13/2025 12:30 PM EST Appointment [facility] Imaging Department, [facility], PET/CT 450 [place] [address] Libertad Ramos DO [address] [place] [address] [email or web address] 09/13/2025 1:40 PM EST Appointment [facility] Imaging Department, [facility] [place], [place] [address] [facility], Floor L1 [place] [address] Cathy Schmidt PA-C [address] [place] [address] [place] [address] [email or web address] Brennon Delcid MD, MPH [address] [place] [address], [facility]- L2 [place] [address] Richard@d [facility] 09/13/2025 3:30 PM EST Office Visit [facility], [address], 11th [place] [address] Brennon Delcid MD, MPH [address] [place] [address], [facility]- [address] [address] Richard@[facility] 09/15/2025 8:30 AM EST Office Visit [facility], [facility] Cancer [address], 11th [place] [address] Maribel Nur MD, MPH 45 [place] [address] Loida@[facility] 09/19/2025 10:00 AM EST Telemedicine Center for Melanoma, [address], 5th [place] [address] Libertad Ramos DO [address] [place] [address], [place] [address] [email or web address] 10/04/2025 1:20 PM EST Office Visit [facility] [address] [place] [address] Alla Escobar MD [address] [place] [address] 3rd [place] [address] 10/26/2025 11:40 AM EST Appointment [facility] Imaging Department, [facility], MRI 450 [facility], Floor L1 [place] [address] Libertad Ramos DO 450 [place] [address] [email or web address] 11/07/2025 10:30 AM EST Blood Draw Laboratory Services, [address], 2nd [place] [address] Darinel Ordaz M.D. Leukemia MD Mike [address] [place], [place] [id number] [place] [address] [email or web address]@[facility] 11/07/2025 11:30 AM EST Office Visit Center for Leukemia, Division of Hematologic Oncology, [address], 8th [place] [address] Darinel Ordaz M.D. Leukemia MD Mike [address] [place], [place] [id number] [place] [address] Elena@[facility] 11/30/2025 11:00 AM EST Office Visit Oral Medicine, [address], 11th [place] [address] Hao Robertson, DMD, PhD 75 [place] [address] [email or web address] documented as of this encounter Visit Diagnoses Diagnosis Pneumonia of both lungs due to infectious organism, unspecified part of lung- Primary documented in this encounter Care Teams Blue Split Trimmer Relationship Specialty Start Date End Date Mariely Vargas MD [address] [address] PCP - General Internal Medicine 03/29/24 Lindsay Perales MD [address] [place] [address] [email or web address] Radiation Oncology 07/12/24 Libertad Ramos DO [address] [place] [address] [email or web address] Medical Oncology 12/22/24 Maribel Nur MD, MPH [address] [place] [address] Loida@[facility] Otolaryngology 12/22/24 Kezia Webb MD [address] [place] [address] [email or web address] Dermatology 12/22/24 Lor Bal MD [address] [place] [phone] Wendy Chavarria@[facility] Internal Medicine 12/22/24 Mynor Coats MD [address] [address] Dermatology 01/02/25 Eliseo Rand, PHILIPPE 450 [place] [address] Zoe@[email or web address] Associate Infusion Nurse 01/02/25 Grover Barbosa MD [address] [place] [address] [place] [address] Paper Grader Pulmonary Disease 01/05/25 Neville Torres MD [address] [address] [email or web address] Urology 01/27/25 Kya Diaz, PHILIPPE [address] [address] Silvia@[facility] Associate Infusion Nurse 01/23/25 Yvonne Lewis [address] [place] [address] [email or web address] .[facility] Mat Roller 04/13/25 Brennon Delcid MD, MPH [address] [place] [address], [facility]- [address] [address] Richard@[email or web address] Radiation Oncology 06/02/25 Cathy Schmidt PA-C [address] [place] [address] [place] [address] [email or web address] Physician Hot Mix Operator 06/14/25 documented as of this encounter Additional Source Comments The information contained in this document represents components of the legal health record. It is not the complete legal health record.[facility]
--- OUTSIDE RECORDS SUMMARY | 2025-09-12 10:30 | XMS_ITS | Encounter Summary ---
Author Organization [facility] Address [address] [facility] [address] [place] [address] Phone Care Team Providers Care Senior Auditor Name Role Phone Mariely Vargas MD Primary Care Provider Lindsay Perales MD Unavailable Richard Eden DO, Justine Unavailable [phone] Maribel Nur MD, MPH Unavailable Kezia Webb MD Unavailable [phone] Lor Bal MD Unavailable [phone] Mynor Coats MD Unavailable [phone] Eliseo Rand RN Unavailable Ayaka [email or web address] Grover Barbosa MD Unavailable Neville Torres MD Unavailable + [phone] Kya Diaz RN Unavailable Naga [email or web address].[email or web address] Yvonne Lewis Unavailable [phone] Brennon Delcid MD, MPH Unavailable + Cathy Schmidt PA-C Unavailable + Encounter Details Date Type Department Care Team (Late st Contact Info) Description 03/29/2025 Prep for Surgery [facility] PRE/PACU [address] [place] [address] Maribel Nur MD, MPH [address] [place] [address] [email or web address] Social History Tobacco Use Types Packs/Day Years [...] 5:56 PM EDT Malgorzata Sneed RN * [place] Suicide Severity Rating Scale (Screener/Recent Self-Report) Question [...] Contact Info) Description 06/21/2025 Procedure Pass Erika [facility] Imaging Department, [facility] [place], [place] [address] [facility], Floor L1 [place] [address] 07/24/2025 Procedure Pass [facility] Imaging Department, [facility] [place], MRI [address] [facility], Floor L1 [place] [address] 09/13/2025 9:30 AM EST Blood Draw [facility] Imaging Department, [facility], Imaging Azhjy-[id number] [address] [facility], Floor L1 [place] [address] Libertad Ramos V, DO [address] [place] [address] [email or web address] 09/13/2025 12:30 PM EST Appointment [facility] Imaging Department, [facility], PET/CT 450 [place], [place] Libertad Ramos V, DO [address] [place] [address] [email or web address] 09/13/2025 1:40 PM EST Appointment [facility] Imaging Department, [facility], [place] [address] [facility], Floor L1 [place] [address] Cathy Schmidt PA-C [address] [place] [address] [place] [address] Brennon Delcid MD, MPH [address] [place] [address] [email or web address] 09/13/2025 3:30 PM EST Office [facility], [address], 11th [place] [address] Brennon Delcid MD, MPH [address] [place] [address] [email or web address] 09/15/2025 8:30 AM EST Office Visit [facility], [address], 11th [place] [address] Maribel Nur MD, MPH [address] [place] [address] [email or web address] 09/19/2025 10:00 AM EST Telemedicine [facility], [address], 5th [place] [address] Libertad Ramos V DO [address] [place] [address] [email or web address] 10/04/2025 1:20 PM EST Office Visit [facility] [address] [place] [address] Alla Escobar MD [address] [place] [address] 3rd [place] [address] 10/26/2025 11:40 AM EST Appointment Erika Lank Imaging Department, [facility], MRI [address] [place] [address], Floor L1 [place] [address] Libertad Ramos DO [address] [place] [address] [email or web address] 11/07/2025 10:30 AM EST Blood Draw Laboratory Services, [address], 2nd Floor [place], [place] Darinel Ordaz M.D. [facility] [address] [place] [address] [place] [address] [email or web address] 11/07/2025 11:30 AM EST Office Visit [facility], Division of Hematologic Oncology, [facility] [address] [facility], 8th [place] [address] Darinel Ordaz M.D. Leukemia MD stephon [address] [place] [address] [email or web address] 11/30/2025 11:00 AM EST Office Visit Oral Medicine, [facility] [address] [facility], 11th [place] [address] Hao Robertson DMD, PhD [address] [place] [address] [email or web address] documented as of this encounter Visit Diagnoses Not on filedocumented in this encounter Care Teams Senior Auditor Relationship Specialty Start Date End Date Mariely Vargas MD [address] [address] PCP - General Internal Medicine 03/29/24 Lindsay Perales MD [address] [place] [address] [email or web address] Radiation Oncology 07/12/24 Libertad Ramos DO [address] [place] [address] [email or web address] Medical Oncology 12/22/24 Maribel Nur MD, MPH [address] [place] [address] [email or web address] Otolaryngology 12/22/24 Kezia Webb MD [address] [place] [address] [email or web address] Dermatology 12/22/24 Lor Bal MD [address] [place] [id number] Wendy [email or web address] Internal Medicine 12/22/24 Mynor Coats MD [address] [address] Dermatology 01/02/25 Eliseo Rand, PHILIPPE [address] [place] [address] [email or web address] Associate Infusion Nurse 01/02/25 Grover Barbosa MD [address] [place] [address] [place] [address] Windows Server Architect Pulmonary Disease 01/05/25 [place] [address] [place] [address] Urology 01/27/25 Kya Diaz, PHILIPPE [address] [address] [email or web address] Associate Infusion Nurse 01/23/25 Yvonne Lewis [address] [place] [address] [email or web address] Cash Grain Farmer 04/13/25 Brennon Delcid MD, MPH [address] [place] [address], ASB1- L2 [place] [address] [email or web address] Radiation Oncology 06/02/25 Cathy Schmidt PA-C [address] [place] [address] [place] [address] [email or web address] Physician Gear Cutting Machine Operator 06/14/25 documented as of this encounter Additional Source Comments The information contained in this document represents components of the legal health record. It is not the complete legal health record.[facility]
--- OUTSIDE RECORDS SUMMARY | 2025-09-12 10:30 | XMS_ITS | Encounter Summary ---
Author Organization [facility] Address [address] [place] [address] Care Team Providers Care Television Schedule Coordinator Name Role Phone Mariely Vargas MD Primary Care Provider [phone] Reason for Visit * Reason Onset Date Comments PREP ISSUE 09/11/2025 Encounter Details Date Type Department Care Team ([facility] st Contact Info) Description 09/11/2025 Telephone Gastroenterology - [address] [phone] Faraz Adams MD [address] [place] [address] Social History Tobacco Use Types Packs/Day Years [...] for your loved ones. For example, child day care teacher or elderly care for an older adult? [...] No 02/04/2025 5:49 AM Madison Garcia RN * Are you blind or do you have serious difficulty seeing, even when wearing glasses? Answer Date of Assessment Author No 02/04/2025 5:49 AM Madison Garcia RN * Do you have serious difficulty walking or climbing stairs? Answer Date of Assessment Author No 02/04/2025 5:49 AM Madison Garcia RN * Do you have serious difficulty dressing or bathing? Answer Date of Assessment Author No 02/04/2025 5:49 AM Madison Garcia RN * Because of a physical, mental, [...] Date Author No 02/04/2025 5:49 AM Madison Garcia RN documented in this encounter Progress Notes * Shruthi Marie - 09/11/2025 3:19 PM EST PLACED SAMPLE UP FRONT IN PATIENT PICKUP. * Winston Corona - 09/11/2025 2:54 PM EST Pt is calling because pt has colon on 09/21 his insurance called him stating the provider needs to call them and state that it is ok for pt to take the clenpiq for prep instead if gallon. Phone documented in this encounter Plan of Treatment Upcoming Encounters Date Type Department Care Team (Late st Contact Info) Description 09/21/2025 12:00 PM EST Appointment [facility] Endoscopy [address] [place] [address] Faraz Adams MD [address] [address] 12/05/2025 10:00 AM EST Office Visit [facility] Hematology Oncology [address] [place] [address] Lor Bal MD [address] [place] [phone] documented as of this encounter Goals Goal Patient Goal Type Associated Problems Recent Progress Patient-Stated? Author Autogenerat ed Goal Care Plan Autogenerated Problem No Curtis Craft documented as of this encounter Visit Diagnoses Not on filedocumented in this encounter Additional Health Concerns Active Problems Noted Date Diagnosed Date Autogenerated Problem 09/07/2025 Infection Onset Date Last Indicated Resolved Time CRE 02/17/2025 02/17/2025 MDRO (other) 02/17/2025 02/17/2025 documented as of this encounter Care Teams Television Schedule Coordinator Relationship Specialty Start Date End Date Mariely Vargas MD [address] [place] [address] PCP - General 05/29/22 documented as of this encounter
--- OUTSIDE RECORDS SUMMARY | 2025-09-12 10:30 | XMS_ITS | Clinical Summary ---
Author Organization [facility] Address [address] [place] [address] Care Team Providers Care Diplomatic Interpreter Name Role Phone Mariely Vargas MD Primary Care Provider [phone] Allergies Active Allergy Reactions Criticality Noted Date [...] age to complete this topic Care Teams Diplomatic Interpreter Relationship Specialty Start Date End Date Mariely Vargas MD [address] [place], [place] PCP - General Internal Medicine 05/29/22
--- OUTSIDE RECORDS SUMMARY | 2025-09-12 10:30 | XMS_ITS ---
Author Organization [facility] Address [address] [place] [address] Phone Care Team Providers Care Clinical Psychiatrist Name Role Phone Mariely Vargas MD Primary Care Provider [phone] Active Problems Problem Noted Date Diagnosed Date Radiation-induced esophagitis 07/28/2025 Mucositis 07/28/2025 Daria esophagitis (CMS/HCC V24, CMS/HCC V28) 0 07/28/2025 Chronic left-sided lumbar radiculopathy 07/27/20 25 Delirium 07/04/2025 Pneumonia of left lower lobe due to infectious o rganism 06/30/2025 Anemia 06/29/2025 Gastrointestinal hemorrhage, unspecified gastrointestinal hemorrhage type 06/29/2025 Moderate protein-calorie malnutrition (CMS/HCC V 24) 05/05/2025 Anxiety 05/05/2025 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 On antineoplastic chemotherapy 02/16/2025 Drug therapy 02/16/2025 Acute left-sided back pain with sciatica 025 Intractable back pain 02/04/2025 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 05/10 Nephrolithiasis 10/28/2022 Splenomegaly 10/28/2022 Deep venous thrombosis (CMS/HCC V24, CMS/HCC V28 ) 07/29/2022 Overview (12/18/2022): 1998 at time of DX PV Myelofibrosis ([facility] V24, [facility] V28) 022 Post-phlebitic syndrome 07/29/2022 Pulmonary embolus ([facility] V24, [facility] V28) Thrombocytosis 06/26/2020 Irritable bowel syndrome with diarrhea 0 Lung nodule 05/22/2020 Irritable bowel syndrome 12/29/2017 Kidney disease 12/29/2017 Obstructive sleep apnea syndrome 12/29/2017 Overview (12/18/2022): CPAP Pulmonary nodules 12/29/2017 Skin cancer of nose 12/29/2017 Overview (12/18/2022): Type of cancer not indicated, removed 09/2013 Acquired hypothyroidism 05/26/2017 Chronic gout 05/26/2017 Hyperglycemia 05/26/2017 CHICO (obstructive sleep apnea) 05/26/2017 PV (polycythemia vera) ([facility] V24, [facility] V28 ) 05/26/2017 Prostate cancer ([facility] V24, [facility] V28) 05/26 Current Treatment and Therapy Plans [...] Noted Date Diagnosed Date Resolved Date Sepsis ([facility] V24, [facility] V28) 07/26/2025 07/28/2025 CLL (chronic lymphocytic marcie kemia) ([facility] V24, [facility] V28) 05/05/2025 09/05/2025
--- OUTSIDE RECORDS SUMMARY | 2025-09-12 10:30 | XMS_ITS | Encounter Summary ---
Author Organization [facility] Address [address] [facility] [address] [place] [address] Phone Care Team Providers Care Personal Lines Insurance Advisor Name Role Phone Mariely Vargas MD Primary Care Provider Lindsay Perales MD Unavailable [phone] Richard Eden DO, Justine Unavailable [phone] Maribel Nur MD, MPH Unavailable Kezia Webb MD Unavailable [phone] Lor Bal MD Unavailable [phone] Myonr Coats MD Unavailable Eliseo Rand RN Unavailable Ayaka [email or web address].[email or web address] Grover Barbosa MD Unavailable Neville Torres MD Unavailable + [phone] Kya Diaz RN Unavailable Naga [email or web address].[email or web address] Yvonne Lewis Unavailable [phone] Brennon Delcid MD, MPH Unavailable + Cathy Schmidt PA-C Unavailable + Encounter Details Date Type Department Care Team (Late st Contact Info) Description 12/06/2024 Procedure Pass [facility] [address] [place] [address] Social History Tobacco Use Types Packs/Day Years [...] Info) Description 06/21/2025 Procedure Pass [facility], [facility], [place] [address] [facility], Floor L1 [place] [address] 07/24/2025 Procedure Pass [facility], [facility], MRI [address] [facility], Floor L1 [place] [address] 09/13/2025 9:30 AM EST Blood Draw [facility], [facility], Imaging Nruvd-gu-Dulf [address] [facility], Floor [address]1 [place] [address] Libertad Ramos V, DO 450 [place] [address] [email or web address] 09/13/2025 12:30 PM EST Appointment [facility], [facility], PET/CT [address] [place], [place] Libertad Ramos V, DO 450 [place] [address] [email or web address] 09/13/2025 1:40 PM EST Appointment [facility], [facility], [place] [address] [facility], Floor [address]1 [place] [address] Cathy Schmidt PA-C [address] [place] [address] [place] [address] Brennon Delcid MD, MPH [address] [place] [address], ASB1- L2 [place] [address] [email or web address] 09/13/2025 3:30 PM EST Office Visit [facility], [facility] [place] [address] [facility], 11th [place] [address] Brennon Delcid MD, MPH [address] [facility], [facility]- [address] [address] [email or web address] 09/15/2025 8:30 AM EST Office Visit [facility], [address], 11th [place] [address] Maribel Nur MD, MPH [address] [place] [address] [email or web address] 09/19/2025 10:00 AM EST Telemedicine [facility], [address], 5th [place] [address] Libertad Ramos DO [address] [place] [address] [email or web address] 10/04/2025 1:20 PM EST Office Visit [facility] [address] [place] [address] Alla Escobar MD [address] [place] [address] 3rd [place] [address] 10/26/2025 11:40 AM EST Appointment Erika Lank Imaging Department, [facility], MRI [address] [place] [address], Floor [address]1 [place] [address] Libertad Ramos V DO [address] [place] [address] [email or web address] 11/07/2025 10:30 AM EST Blood Draw Laboratory Services, [facility] [address] [facility], 2nd [place] [address] Darinel Ordaz M.D. Leukemia MD Mike [address] [facility] [place] [address] [email or web address] 11/07/2025 11:30 AM EST Office Visit [facility], Division of Hematologic Oncology, [facility] [address] [facility], 8th [place] [address] Darinel Ordaz M.D. Leukemia MD Mike [address] [facility] [place] [address] [email or web address]@[email or web address] 11/30/2025 11:00 AM EST Office Visit Oral Medicine, [facility] [address] [facility], 11th [place] [address] Hao Robertson, DMD, PhD [address] [place] [address] [email or web address] documented as of this encounter Visit Diagnoses Not on filedocumented in this encounter Care Teams Personal Lines Insurance Advisor Relationship Specialty Start Date End Date Mariely Vargas MD [address] [place] [address] PCP - General Internal Medicine 03/29/24 Lindsay Perales MD [address] [place] [address] [email or web address] Radiation Oncology 07/12/24 Libertad Ramos DO [address] [place] [address] [email or web address] Medical Oncology 12/22/24 Maribel Nur MD, MPH [address] [place] [address] [email or web address] Otolaryngology 12/22/24 Kezia Webb MD [address] [place] [address] [email or web address] Dermatology 12/22/24 Lor Bal MD [address] [place] [phone] Wendy [email or web address] [facility] Internal Medicine 12/22/24 Mynor Coats MD [address] [place] [address] Dermatology 01/02/25 Eliseo Rand RN 450 [place] [address] [email or web address] Associate Infusion Nurse 01/02/25 Grover Barbosa MD [address] [place] [address] [place] [address] Hospitality Manager Pulmonary Disease 01/05/25 Neville Torres MD [address] [place] [address] Urology 01/27/25 Kya Diaz, RN 36[address] [facility] [address] [place] [address] [email or web address] Associate Infusion Nurse 01/23/25 Yvonne Lewis [address] [place] [address] [email or web address] Combatant Swimmer 04/13/25 Brennon Delcid MD, MPH [address] [place] [address], ASB1- L2 [place] [address] [email or web address] Radiation Oncology 06/02/25 Cathy Schmidt PA-C [address] [place] [address] [place] [address] [email or web address] Physician Chief Operator Synthesis 06/14/25 documented as of this encounter Additional Source Comments The information contained in this document represents components of the legal health record. It is not the complete legal health record.[facility]
--- OUTSIDE RECORDS SUMMARY | 2025-09-12 10:30 | XMS_ITS | Encounter Summary ---
Author Organization [facility] Address [address] [place] [address] Phone Care Team Providers Care Shingle Inspector Name Role Phone Mariely Vargas MD Primary Care Provider Lindsay Perales MD Unavailable Richard Eden DO, Justine Unavailable [phone] Maribel Nur MD, MPH Unavailable Kezia Webb MD Unavailable [phone] Lor Bal MD Unavailable [phone] Mynor Coats MD Unavailable [phone] Eliseo Rand RN Unavailable Ayaka [email or web address] Coppola.[facility] Grover Barbosa MD Unavailable Neville Torres MD Unavailable + [phone] Kya Diaz RN Unavailable Naga [email or web address] HEREBRT.[facility] Yvonne Lewis Unavailable [phone] Brennon Delcid MD, MPH Unavailable + Cathy Schmidt PA-C Unavailable + Encounter Details Date Type Department Care Team (Late st Contact Info) Description 08/08/2025 Orders Only [facility] [place] Department of Radiation Oncology [address] [facility], Floor [address]2 [place] [address] Cathy Schmidt PA-C [address] [facility] [place] [address] Acquired hypothyroidism (Primary Dx) Social History Tobacco [...] st Contact Info) Description 06/21/2025 Procedure Pass [facility] Imaging Department, [facility], [place] [address], Floor [address]1 [place] [address] 07/24/2025 Procedure Pass [facility] Imaging Department, [facility], MRI [address] [facility], [facility] [address]1 [place] [address] 09/13/2025 9:30 AM EST Blood Draw [facility] Imaging Department, [facility], Imaging [id number] [address], [address]1 [place] [address] Libertad Ramos DO [address] [place] [address] [email or web address] 09/13/2025 12:30 PM EST Appointment [facility] Imaging Department, [facility], PET/CT [address] [place] [address] Libertad Ramos DO [address] [place] [address] [email or web address] 09/13/2025 1:40 PM EST Appointment [facility] Imaging Department, [facility], [place] [address] [facility], Floor [address]1 [place] [address] Cathy Schmidt, DIONNA [facility] [place] [address] Brennon Delcid MD, MPH [address] [place] [address], [facility]- L2 [place] [address] [email or web address] 09/13/2025 3:30 PM EST Office Visit [facility], [facility] Cancer [address], 11th [place] [address] Brennon Delcid MD, MPH [facility], [facility]- L2 [place] [address] [email or web address] 09/15/2025 8:30 AM EST Office Visit [facility], [facility] Cancer [address], 11th [place] [address] Maribel Nur MD, MPH 45 [place] [address] [email or web address] 09/19/2025 10:00 AM EST Telemedicine Center [facility] Melanoma, [address], 5th [place] [address] Libertad Ramos DO 450 [place] [address] [email or web address] 10/04/2025 1:20 PM EST Office Visit [facility] [address] [place] [address] Alla Escobar MD [address] [place] [address] 3rd [place] [address] 10/26/2025 11:40 AM EST Appointment E[facility] Imaging Department, [facility], MRI [address], Floor [address] [place] [address] Libertad Ramos DO 450 [place] [address] [email or web address] 11/07/2025 10:30 AM EST Blood Draw Laboratory Services, [address], 2nd [place] [address] Darinel Ordaz M.D. Leukemia MD Mike [address] [place], [place] [id number] [place] [address] [email or web address] 11/07/2025 11:30 AM EST Office Visit Center for Leukemia, Division of Hematologic Oncology, [facility] [address] [facility], 8th [place] [address] Darinel Ordaz M.D. Leukemia MD Mike [address] [place] [id number] [place] [address] [email or web address] 11/30/2025 11:00 AM EST Office Visit Oral Medicine, [address], 11th [place] [address] Hao Robertson DMD, PhD 75 [place] [address] [email or web address] documented as of this encounter Results * XR CHEST PA AND LATERAL 2 VIEWS (08/10/2025 12:51 PM EDT) MGB IMG RECOMMENDATION COMMENT Left lower lobe pneumonia [facility] Anatomical Region Laterality Modality Chest Computed Radiogr [...] clinician's provided indication for this examination in [facility]: Cough; history of CLL, polycythemia vera, [...] clinician's provided indication for this examination in [facility]:Cough; history of CLL, polycythemia vera, and [...] iron binding capacity (08/10/2025 12:50 PM EDT) [facility] IRON 57(L) 59 - 158 ug/dL [facility] IRON BINDING CAPACITY 241 220 - 460 ug/dL [facility] TRANSFERRIN SATURAT. 24 14 - 50 % [facility] Blood 08/10/2025 12:5 0 PM EDT 08/10/2025 1:29 PM EDT Cathy Schmidt PA-C LAB BLOOD BKR ORDE KOLTON Final Result Performing Organization Address City/[facility]/ZIP Co de Phone Number [facility] [address] [place], [place] [id number] * TSH (08/10/2025 12:50 PM EDT) [facility] TSH 2.66 0.27 - 4.20 uIU/mL [facility] Blood 08/10/2025 12:5 0 PM EDT 08/10/2025 1:29 PM EDT Cathy Schmidt PA-C LAB BLOOD BKR ORDE RABALLEY Final Result [facility] [address] [place] [address] * (ABNORMAL) Comprehensive metabolic panel (08/10/2025 12:50 PM EDT) [facility] SODIUM 140 136 - 145 mmol/L [facility] POTASSIUM 4.0 3.4 - 5.1 mmol/L [facility] CHLORIDE 102 98 - 107 mmol/L [facility] CO2 24 22 - 31 mmol/L [facility] BUN 13 6 - 23 mg/dL [facility] CREATININE 0.68 0.50 - 1.20 mg/dL [facility] GLUCOSE 118(H) 70 - 100 mg/dL [facility] ALBUMIN 4.3 3.5 - 5.2 g/dL [facility] TOTAL PROTEIN 6.7 6.4 - 8.3 g/dL [facility] CALCIUM 9.7 8.8 - 10.7 mg/dL [facility] ALKALINE PHOSPHATASE 106 40 - 129 U/L [facility] TOTAL BILIRUBIN 0.5 0.2 - 1.2 mg/dL [facility] AST 20 <41 U/L [facility] ALT 15 <42 U/L [facility] GLOBULIN 2.4 2.3 - 4.2 g/dL [facility] EGFR 98 >59 mL/min/1.7 3m2 [facility] Comment:Estimated glomerular filtration rate calculated using the CKD-EPI refit equation. ANION GAP 14 7 - 17 mmol/L [facility] Blood 08/10/2025 12:5 0 PM EDT 08/10/2025 1:29 PM EDT us Cathy Schmidt PA-C LAB BLOOD KAITLYNN HI Final Result [facility] [address] [place] [address] * (ABNORMAL) CBC and differential (08/10/2025 12:50 PM EDT) WBC 18.62(H) 4.00 - 10.00 K/uL [facility] RBC 3.96(L) 4.50 - 6.40 M/uL [facility] HGB 10.2(L) 13.5 - 18.0 g/dL [facility] HCT 34.2(L) 40.0 - 54.0 % [facility] PLT 480(H) 150 - 450 K/uL [facility] MCV 86.4 80.0 - 100.0 fL [facility] MCH 25.8(L) 27.0 - 32.0 pg [facility] MCHC 29.8(L) 32.0 - 36.0 g/dL [facility] RDW 21.0(H) 11.5 - 14.5 % [facility] MPV 10.9 8.4 - 12.0 fL [facility] NRBC 0.20(H) 0 /100 WBCs [facility] ABSOLUTE NRBC 0.04(H) 0 K/uL [facility] DIFF METHOD MANUAL [facility] NEUTS (MANUAL) 90.8(H) 48.0 - 76.0 % [facility] LYMPHS 3.1(L) 18.0 - 41.0 % [facility] BANDS 2.3 0.0 - 3.0 % [facility] MONOS 0.8(L) 4.0 - 11.0 % [facility] EOSINOPHIL 0.7 0.0 - 5.0 % [facility] BASOPHIL 0.0 0.0 - 1.5 % [facility] BLASTS 0.0 0 % [facility] MYELOS 1.5(H) 0 % [facility] METAS 0.8(H) 0 % [facility] ABSOLUTE NEUTS 16.91(H) 1.92 - 7.60 K/uL [facility] ABSOLUTE LYMPHS 0.58(L) 0.72 - 4.10 K/uL [facility] ABSOLUTE BANDS 0.43(H) 0.00 - 0.30 K/uL [facility] ABSOLUTE MONOS 0.15(L) 0.16 - 1.10 K/uL [facility] ABSOLUTE EOS 0.13 0.00 - 0.50 K/uL [facility] ABSOLUTE BASO 0.00 0.00 - 0.15 K/uL [facility] ABSOLUTE BLASTS 0.00 0 K/uL [facility] ABSOLUTE MYELOS 0.28(H) 0 K/uL [facility] ABSOLUTE METAS 0.15(H) 0 K/uL [facility] ANISO Few [facility] POIKILOCYTOSIS MARKED [facility] POLYCHROME Few [facility] SCHISTOCYTES Moderate [facility] TEAR DROPS MARKED [facility] HYPOCHROMIA Few [facility] MACROCYTES Few [facility] MICROCYTES Moderate [facility] OVALOCYTES MARKED [facility] STOMATOCYTES Few [facility] Blood 08/10/2025 12:5 0 PM EDT 08/10/2025 1:29 PM EDT Cathy Schmidt PA-C LAB BLOOD BKR AMRIT HI Final Result [facility] [address] [place] [address] documented in this encounter Visit Diagnoses Diagnosis Acquired hypothyroidism- Primary Unspecified hypothyroidism Acquired hypothyroidism Unspecified hypothyroidism documented in this encounter Care Teams Shingle Inspector Relationship Specialty Start Date End Date Mariely Vargas MD [address] [address] PCP - General Internal Medicine 03/29/24 Lindsay Perales MD [address] [place] [address] [email or web address] Radiation Oncology 07/12/24 Libertad Ramos DO [address] [place] [address] [email or web address] Medical Oncology 12/22/24 Maribel Nur MD, MPH [address] [place] [address] [email or web address]@[email or web address] Otolaryngology 12/22/24 Kezia Webb MD [address] [place] [address] [email or web address] Dermatology 12/22/24 Lor Bal MD [address] [place] [phone] Wendy [email or web address] Internal Medicine 12/22/24 Mynor Coats MD [address] [place] [address] Dermatology 01/02/25 Eliseo Rand RN [address] [place] [address] [email or web address]@[email or web address] Associate Infusion Nurse 01/02/25 Grover Barbosa MD [address] [place] [address] [place] [address] Expeller Operator Pulmonary Disease 01/05/25 Neville Torres MD [address] [address] [email or web address] Urology 01/27/25 Kya Diaz, PHILIPPE 36[address] [facility] [address] [place] [address] [email or web address] Associate Infusion Nurse 01/23/25 Yvonne Lewis [address] [place] [address] [email or web address] Breakfast Manager 04/13/25 Brennon Delcid MD, MPH [address] [place] [address], ASB1- [address] [address] [email or web address] Radiation Oncology 06/02/25 Cathy Schmidt PA-C [address] [place] [address] [place] [address] [email or web address] Physician Manual Lathe Operator 06/14/25 documented as of this encounter Additional Source Comments The information contained in this document represents components of the legal health record. It is not the complete legal health record.[facility]
--- OUTSIDE RECORDS SUMMARY | 2025-09-12 10:30 | XMS_ITS | Encounter Summary ---
Author Organization [employer] [facility] Address [address] [facility] [address] [place] [address] Phone Care Team Providers Care Engine Installer Name Role Phone Mariely Vargas MD Primary Care Provider [phone] Lindsay Perales MD Unavailable [phone] Richard Eden DO, Justine Unavailable [phone] Maribel Nur MD, MPH Unavailable Kezia Webb MD Unavailable [phone] Lor Bal MD Unavailable [phone] Mynor Coats MD Unavailable Eliseo Rand RN Unavailable Ayaka [email or web address] [email or web address].[facility] Grover Barbosa MD Unavailable Neville Torres MD Unavailable + [phone] Kya Diaz RN Unavailable Naga [email or web address].[facility] Yvonne Lewis Unavailable [phone] Brennon Delcid MD, MPH Unavailable + Cathy Schmidt PA-C Unavailable + Encounter Details Date Type Department Care Team (Late st Contact Info) Description 06/26/2025 Ancillary Orders [facility] [address] [place] [address] Keith Bolton MD [address] [place] [address] [email or web address] Social History Tobacco Use Types Packs/Day Years [...] Contact Info) Description 06/21/2025 Procedure Pass E[facility] Imaging Department, [facility], [place] [address] [facility], Floor [address]1 [place] [address] 07/24/2025 Procedure Pass Erika [facility] Imaging Department, [facility], MRI [address] [facility], Floor L1 [place] [address] 09/13/2025 9:30 AM EST Blood Draw Erika [facility] Imaging Department, [facility], Imaging [id number] [address] [facility], Floor [address]1 [place] [address] Libertad Ramos DO [address] [place] [address] [email or web address] 09/13/2025 12:30 PM EST Appointment Erika [facility] Imaging Department, [facility], PET/CT 450 [place] [address] Libertad Ramos DO [address] [place] [address] [email or web address] 09/13/2025 1:40 PM EST Appointment E[facility] Imaging Department, [facility] [place], [place] [address] [facility], Floor L1 [place] [address] Cathy Schmidt PA-C [address] [place] [address] [place] [address] Brennon Delcid MD, MPH [address] [place] [address], [facility]- L2 [place] [address] [email or web address] [email or web address] 09/13/2025 3:30 PM EST Office Visit [facility]ck Oncology, [facility] Cancer [address], 11th [place] [address] Brennon Delcid MD, MPH [address] [place] [address], [facility]- [address] [address] [email or web address] 09/15/2025 8:30 AM EST Office Visit [facility]cology, [facility] Cancer [address], 11th [place] [address] Maribel Nur MD, MPH [address] [place] [address] [email or web address] 09/19/2025 10:00 AM EST Telemedicine Center for Melanoma, [address], 5th [place] [address] Libertad Ramos DO [address] [place] [address] [email or web address] 10/04/2025 1:20 PM EST Office Visit [facility] [address] [place] [address] Alla Escobar MD [address] [place] [address] 3rd [place] [address] 10/26/2025 11:40 AM EST Appointment [facility] Imaging Department, [facility], MRI [address] [facility], Floor [address]1 [place] [address] Libertad Ramos DO [address] [place] [address] [email or web address] 11/07/2025 10:30 AM EST Blood Draw Laboratory Services, [address], 2nd [place] [address] Darinel Ordaz M.D. Leukemia MD stephon [address] [place] [address] [email or web address] 11/07/2025 11:30 AM EST Office Visit Center for Leukemia, Division of Hematologic Oncology, [address], 8th [place] [address] Darinel Ordaz M.D. Leukemia MD Mike [address] [place] [address] [place] [address] [email or web address] 11/30/2025 11:00 AM EST Office Visit Oral Medicine, [address], 11th [place] [address] Hao Robertson DMD, PhD [address] [place] [address] [email or web address] documented as of this encounter Results * MRI Spine (Bone) Outside (No Interpretation) (06/15/2025 12:05 AM EDT) Narrative [facility] IMG INTERFACES - 06/26/2025 7:51 AM EDT This study is for PACS storage only and not for interpretation. us Keith Bolton MD IMG OUTSIDE IMAGING W/OUT IN TERPRETATION Edited Result - Final [facility] IMG INTERFACES documented in this encounter Visit Diagnoses Not on filedocumented in this encounter Care Teams Engine Installer Relationship Specialty Start Date End Date Mariely Vargas MD [address] [address] PCP - General Internal Medicine 03/29/24 Lindsay Perales MD [address] [address] [email or web address] Radiation Oncology 07/12/24 Libertad Ramos DO [address] [place] [address] [email or web address] Medical Oncology 12/22/24 Maribel Nur MD, MPH [address] [place] [address] [email or web address]@[email or web address] Otolaryngology 12/22/24 Kezia Webb MD [address] [place] [address] [email or web address] Dermatology 12/22/24 Lor Bal MD [address] [place] [phone] Wendy [email or web address]@[email or web address] Internal Medicine 12/22/24 Mynor Coats MD [address] [address] Dermatology 01/02/25 Eliseo Rand, PHILIPPE [address] [place] [address] [email or web address] Associate Infusion Nurse 01/02/25 Grover Barbosa MD [address] [place] [address] [place] [address] [employer] Cell[employer]er Helper Machine Pulmonary Disease 01/05/25 Neville Torres MD [address] [address] [email or web address] Urology 01/27/25 Kya Diaz, PHILIPPE [address] [email or web address] Associate Infusion Nurse 01/23/25 Yvonne Lewis [address] [place] [address] [email or web address] .[email or web address] Avionics System Engineer 04/13/25 Brennon Delcid MD, MPH [address] [place] [address], ASB1- [address] [place] [address] [email or web address] Radiation Oncology 06/02/25 Cathy Schmidt PA-C [address] [place] [address] and Women's [facility] [place] [address] Physician Inspector Motor Vehicles 06/14/25 documented as of this encounter Additional Source Comments The information contained in this document represents components of the legal health record. It is not the complete legal health record.[facility]
--- OUTSIDE RECORDS SUMMARY | 2025-09-12 10:30 | XMS_ITS | Data Portability ---
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 Recommended use of [id number]-[id number] antibiotic ointment over the small area of residual granulation along the postauricular crease. Because of the change in configuration of the external auditory meatus, it is likely he will be prone to cerumen impaction. Recommend follow-up with me in 3 months for reevaluation. [email or web address] Not available 09/15/2024 09:27:27 02/23/2025 02/23/2025 The [...] We will set this up for him. darryl Not available 02/23/2025 10:23:10 08/28/2025 08/28/2025 The left pinna, external auditory canal were carefully examined today. There is a rotational flap graft filling the cavum jossie resulting in convexity of this area, which is stable and does not appear to be in danger of causing external auditory canal stenosis. A fairly large amount of cerumen and squamous epithelial debris was removed today from external auditory canal and from the crevices within the pinna. I instructed his on how to keep this area clean to prevent inflammation and infection. This anatomic configuration and radiation will has resulted in disruption of the natural migration of cerumen and squamous epithelium out of the ear canal, so he will be prone to cerumen and debris impactions going forward. Recommend follow-up in 3 months for his next cleaning darryl Not available 08/28/2025 09:41:54 Plan of Treatment Reminders Order Date Submit Date Provider Last Modified By Organization Details Last Modified Time Details Appointments FOLLOW UP 30 2025 10:15A M ROGERS OLIVEIRA MD Not available Not available Not available Lab None recorded . Referral None recorded . Procedures None recorded . Surgeries None recorded . Imaging None recorded . Medication Orders None recorded . Patient TargetsNo targets recorded. Patient InstructionsNo instructions recorded. Reason for Referral None Reported. Results Created Date Observation Date Name Description Value Unit Range Abnormal Flag Note LastModifiedBy Organization Detail LastModifiedTime 06/29/2009/22/2019 laurie navas/linda bustos tic resul t No observ ation record ed. [email or web address] Not Available 19:31:49 06/29/2009/22/2019 audio gram No observ ation record ed. [email or web address] Not Available 19:32:12 11/07/20 24 audio gram No observ ation record ed. BARCODE Not Available 2023 14:38:55 Result Notes None recorded. Problems Name Problem SNOMED Code Status Onset Date Resolution Date Notes Provider Name and Address Organization Details Recorded Time Hypertrop hy of tonsils 98633517 Active 2017 Hypertrop hy of tonsils; Note: Date Diagnosed : 06/01/2018 12:08 PM (J35.1) Not Available Formerly [facility], [facility]–1983 4 02:15:50 Sensorine ural hearing loss of bilateral ears 932815195 Active 2017 Sensorine ural hearing loss, bilateral ; Note: Date Diagnosed : 06/11/2018 10:24 AM (H90.3) Not Available [facility], [facility] 4 02:15:48 Tinnitus of left ear 87779510039 06 Active 2017 Tinnitus, left ear; Note: Date Diagnosed : 06/11/2018 12:44 PM (H93.12) Not Available [facility], [facility] 4 02:15:32 Obstructi ve sleep apnea syndrome 66129087 Active 2019 Obstructi ve sleep apnea (adult) (pediatri c); Note: Date Diagnosed : 04/04/2020 9:58 AM (G47.33) Not Available [facility], [facility] 4 02:15:29 Bleeding from nose 880795961 Active 2019 Epistaxis ; Note: Date Diagnosed : 04/04/2020 9:58 AM (R04.0) Not Available [facility], [facility] 4 02:15:28 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, [place], [address] , [place] [facility] 4 22:17:19 Hypothyro idism 87137859 Active 2023 RAMBO DE LA ROSA MD [facility] [place], [place], [address] , [facility] 4 22:17:30 Lesion of skin of left ear 13640246756 315798 Active 2023 RAMBO DE LA ROSA MD [facility] [place],[address], [place], [address] , [facility] 4 10:46:45 Squamous cell carcinoma of skin of ear 188046255 Active 2023 RAMBO DE LA ROSA MD [address] [facility],[address], [place], [place], [address] , [facility] - [facility] 4 20:24:50 Acute otitis externa 10632174 Active 2023 RAMBO DE LA ROSA MD [address] [facility],[address], [place], [place], [address] , [facility] - [facility] 4 15:18:21 Acute otitis externa 41798113 Active 2023 RAMBO DE LA ROSA MD [address] [facility],[address], [place], [address] , 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 - [facility] 09:27:36 Problem Notes None recorded. Procedures Surgical History Date Name Laterality Status Provider Name and Address Organization Details Recorded Time 08/28/20 25 Debridement of Ear canal left completed ROGERS OLIVEIRA MD [address] [facility],[address], [address], [place] - [facility] 08/27/2025 21:05:32 02/24/20 25 Debridement of Ear canal left completed ROGERS OLIVEIRA MD [address] [facility],[address], [address], [facility] - [facility] 02/23/2025 10:19:32 09/15/20 24 Comp Audio with Tymps - 91749 & 42724 completed LUIGI SPENCER [address] [facility],[address], [address], [place] - [facility] 09/15/2024 08:41:47 09/15/20 24 Cerumen removal with microscope left completed ROGERS OLIVEIRA MD [address] [facility],[address], [address], [facility] - [facility] 09/15/2024 08:29:59 04/08/20 24 General Biopsy completed RAMBO WOOTEN MD [address] [facility],[address], [address], [facility] - [facility] 04/08/2024 10:46:30 Prostatectomy (turp) completed Angelita Lopez [place] - [facility] 04/08/2024 10:16:10 Imaging Results None recorded. Procedure Notes None recorded. Medical Equipment None Reported. Allergies Allergen ID Allergen Name Allergen Category Reaction Reaction Severity Criticality Documentation Date Start Date Code Code System Note Provider Name and Address Organization Details Recorded Time 241242 doxycycli ne Not available Not available Not available Not available 06/15/2024 3640 RxNorm Milly Pedro hahn [place] - [facility] 4 15:07:05 89754 penicilli n G Not available other Not available Not available 03/22/2024 7980 RxNorm React ion: unkno wn, unspe cifie d;; Not Available Former[facility], [facility] 4 00:52:56 77420 Cipro medicatio n diarrhea Not available Not available 03/22/2024 01855 3 RxNorm React ion: unkno wn, unspe cifie d;; Not Available [facility], [facility] 4 00:53:05 Medications Name Sig Start Date Stop Date Status Note LastModified by Organization Details LastModified Time hydroxyur ea 500 mg capsule TAKE 2 CAPSULES (1,000 MG TOTAL) BY MOUTH 1 (ONE) TIME EACH DAY TAKE AT THE SAME TIME EACH DAY. 08/28 completed Not Available Not Available Not Available nystatin 100,000 unit/mL oral suspensio n TAKE 5 ML (500,000 UNITS TOTAL) BY MOUTH 4 (FOUR) TIMES A DAY FOR 5 DAYS. 08/28 completed Not Available Not Available Not Available ketoconaz ole 2 % shampoo APPLY [...] Not Available Not Available No t Available azithromy yolanda 250 mg tablet TAKE 1 TABLET BY MOUTH DAILY FOR 6 DAYS 08/25 completed Not Available Not Available Not Available fosfomyci n trometham ine 3 gram oral packet TAKE 1 PACKET, MIX WITH 6 TO 8OZ OF JUICE OR WATER AND DRINK, REPEAT THE DOSE IN 3 DAYS *NOT COVERED 08/25 completed Not Available Not Available Not Available cilostazo l 50 mg tablet TAKE 1 TABLET BY MOUTH TWICE A DAY 08/28 completed Not Available Not Available Not Available sulfameth oxazole 400 mg-trimet hoprim 80 mg tablet TAKE 1 TABLET BY MOUTH EVERY DAY 02/23 completed Not Available Not Available Not Available cephalexi n 250 mg capsule TAKE 1 CAPSULE BY MOUTH EVERY DAY 08/28 completed Not Available Not Available Not Available fluconazo le 200 mg tablet TAKE 1 TABLET BY MOUTH EVERY DAY X7 DAYS 08/28 completed Not Available Not Available Not Available loperamid e 2 mg tablet 09/15 completed Medicati on ID: [id number] B rand Name: loperami de Send Method: [...] mg tablet 06/15 completed Medicati on ID: [id number] D uration Value: 90 Brand Name: allopuri nol Send Method: E-Prescr ibed Sub s Allowed: subs OK Medic ationGen ericName : allopuri nol Not Available Not Available Not Available sulfameth oxazole 800 mg-trimet hoprim 160 mg tablet TAKE 1 TAB BY MOUTH 2 TIMES A DAY FOR 21 DAYS active Not Available Not Available No t Available aspirin 81 mg tablet,de layed release 06/15 completed Medicati on ID: [id number] B rand Name: aspirin Send Method: E-Prescr ibed Sub s Allowed: subs OK Medic ationGen ericName : aspirin Not Available Not Available Not Available tramadol 50 mg tablet TAKE ONE TO TWO TABLETS BY MOUTH TWICE DAILY NEEDED ONLY WITH ACETAMIN OPHEN 1000MG active Not Available Not Available No t Available triamcino lone acetonide 0.1 % topical cream APPLY TO AFFECTED AREA TOPICALL Y EVERY DAY active Not Available Not Available No t Available levothyro xine 25 mcg tablet TAKE 1 TABLET BY MOUTH EVERY MORNING active Not Available Not Available No t [...] Not Available Not Available triamcino lone acetonide 0.1 % dental paste APPLY TO AFFECTED AREA 2-3 TIMES DAILY AFTER MEALS active Not Available Not Available No t Available triamcino lone acetonide 0.025 % topical cream APPLY TO AFFECTED AREA TWICE A DAY 06/15 completed Not Available Not Available Not Available econazole nitrate 1 % topical cream APPLY TO AFFECTED AREA TOPICALL Y EVERY DAY active Not Available Not Available No t Available cephalexi n 500 mg capsule TAKE 2 CAPSULES BY MOUTH TWICE A DAY FOR 7 DAYS 08/25 completed Not Available Not Available Not Available tacrolimu s 0.1 % topical ointment APPLY TO AFFECTED AREA TWICE A DAY active Not Available Not Available No t Available nystatin 100,000 unit/gram topical cream APPLY TO AFFECTED AREA TWICE A DAY 08/28 completed Not Available Not Available Not Available metronida zole 0.75 % topical cream 06/15 completed Medicati on ID: [id number] D uration Value: 30 Brand Name: metronid azole Se nd Method: E-Prescr ibed Sub s Allowed: subs OK Medic ationGen ericName : metronid azole Not Available Not Available Not Available minocycli ne 50 mg capsule PLEASE SEE ATTACHED FOR DETAILED DIRECTIO NS 08/28 completed Not Available Not Available Not Available nystatin- triamcino lone 100,000 unit/g-0. 1 % topical cream APPLY TO AFFECTED AREA TWICE A DAY active Not Available Not Available No t Available gabapenti n 300 mg capsule TAKE 1 CAPSULE BY MOUTH EVERY 6 HOURS. active Not Available Not Available No t Available folic acid 1 mg tablet TAKE 1 TABLET (1,000 MCG TOTAL) BY MOUTH ONCE DAILY active Not Available Not Available No t Available hydroxyzi ne HCl 25 mg tablet TAKE 1 TABLET BY MOUTH THREE TIMES A DAY active Not Available Not Available No t Available codeine 10 mg-guaife nesin 100 mg/5 mL oral liquid TAKE 10 ML BY MOUTH EVERY 6 HOURS NEEDED FOR COUGH MAX DAILY AMOUNT: 40 ML 08/28 completed Not Available Not Available Not Available mupirocin 2 % topical ointment APPLY TOPICALL Y 2 (TWO) TIMES A DAY. BEFORE RADIATIO N 08/25 completed Not Available Not Available Not Available clobetaso l 0.05 % topical ointment APPLY TO AFFECTED AREA 3 TIMES A DAY active Not Available Not Available No t Available ibuprofen 600 mg tablet TAKE 1 TABLET BY MOUTH EVERY 6 HOURS NEEDED FOR MODERATE PAIN. ALTERNAT E WITH TYLENOL/ ACETAMIN OPHEN. TAKE WITH FOOD/MIL K. 06/15 completed Not Available Not Available Not Available cefuroxim e axetil 500 mg tablet TAKE 1 TABLET BY MOUTH TWICE A DAY FOR 7 DAYS 08/25 completed Not Available Not Available Not Available [...] nasal spray 04/08 completed Medicati on ID: [id number] D uration Value: 30 Brand Name: ipratrop ium bromide Send Method: E-Prescr ibed Sub s Allowed: subs OK Speci al Instruct ion: USE 2 SPRAYS INTO EACH NOSTRILS 4 TIMES DAILY Me dication GenericN dakotah: ipratrop ium bromide Medicati on ID: [id number] D uration Value: 30 Brand Name: ipratrop [...] DAYS IN A ROW TO BOTH EARS 08/28 completed Not Available Not Available Not Available ketoconaz ole 2 % topical cream APPLY TO AFFECTED AREA TOPICALL Y EVERY DAY active Not Available Not Available No t Available cefdinir 300 mg capsule TAKE 1 CAPSULE BY MOUTH TWICE A DAY FOR 7 DAYS 08/25 completed Not Available Not Available Not Available fluticaso ne propionat e 50 mcg/actua tion nasal spray,michelle pension INHALE 2 SPRAYS IN EACH NOSTRIL DAILY FOR 90 DAYS active Not Available Not Available No t Available ipratropi um bromide 21 mcg (0.03 %) nasal spray INSTILL 2 SPRAYS INTO EACH NOSTRIL 4 TIMES A DAY NEEDED FOR ALLERGY [...] MOUTH 3 (THREE) TIMES A DAY NEEDED. 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 SEE INSTRUCT IONS PROVIDED BY THE OFFICE 08/28 completed Not Available Not Available Not Available Vitamin C 500 mg capsule,e xtended release 02/23 completed Medicati on ID: [id number] B rand Name: Vitamin C Send Method: E-Prescr ibed Sub s Allowed: subs OK Medic ationGen ericName : Vitamin C Not Available Not Available Not Available ciclopiro x 0.77 % topical cream APPLY TWICE A DAY TO FUNGAL RASH ON RIGHT BUTTOCK UNTIL CLEAR. 04/08 completed Not Available Not Available Not Available azithromy yolanda 500 mg tablet TAKE 1 TABLET BY MOUTH DAILY FOR 5 DAYS 08/25 completed Not Available Not Available Not Available cyclobenz aprine 5 mg tablet TAKE 1 TABLET (5 MG TOTAL) BY MOUTH NIGHTLY AT BEDTIME NEEDED (BACK PAIN). 08/28 completed Not Available Not Available Not Available tadalafil 5 mg tablet TAKE 1 TABLET BY MOUTH EVERY DAY 08/28 completed Not Available Not Available Not Available nitrofura ntoin monohydra te/macroc rystals 100 mg capsule TAKE 1 CAPSULE BY MOUTH TWICE A DAY 02/23 completed Not Available Not Available Not Available pregabali n 75 mg capsule TAKE 1 CAPSULE BY MOUTH TWICE A DAY FOR 30 DAYS active Not Available Not Available No t Available sodium fluoride 1.1 % dental paste USE DIRECTED active Not Available Not Available No t Available oxycodone 10 mg tablet TAKE 1 TABLET BY MOUTH EVERY 6 HOURS NEEDED FOR SEVERE PAIN 08/28 completed Not Available Not Available Not Available GaviLyte- G 236 gram-22.7 4 gram-6.74 gram-5.86 gram oral solution PLEASE SEE ATTACHED FOR DETAILED DIRECTIO NS 08/28 completed Not Available Not Available Not Available azelastin e 205.5 mcg (0.15 %) nasal spray 06/15 completed Medicati on ID: [id number] B rand Name: azelastdimitri ne Send Method: E-Prescr ibed Sub s Allowed: subs OK Medic ationGen ericName : azelasti ne Not Available Not Available Not Available OxyContin 20 mg tablet,cr ush resistant ,extended release TAKE 1 TABLET BY MOUTH EVERY 12 HOURS. DO NOT CRUSH, CHEW, OR SPLIT. MAX DAILY AMOUNT: 40 MG 10/20 /2025 completed Not Available Not Available Not Available OxyContin [...] Updated DateTime 02/23/2025 175.26 cm 28.1 kg/m2 80710.55 g Angelita Lopez [facility] 02/23/2025 09:46:34 Date Recorded Body height Body mass index (BMI) Body weight Provider Name and Address Organization Details Last Updated DateTime 07/08/2024 175.26 cm 28.1 kg/m2 58063.55 g Johny Horton [facility] 07/08/2024 11:35:04 Date Recorded Body height Body mass index (BMI) Body weight Provider Name and Address Organization Details Last Updated DateTime 08/28/2025 175.26 cm 28.1 kg/m2 68125.55 g Angelita Lopez [facility] 08/28/2025 09:15:06 Social History None recorded. Functional Status None recorded. Mental Status None recorded. Family History Nothing Reported. Medical History Condition Response Allergies/Hayfever Y Heart Problems N Anxiety N Tonsil Infections N Emphysema N Migraines N Thyroid Problems Y Glaucoma N Depression N COPD N Developmental Delay N Nasal or Sinus Problems N Anemia Y Immune System Disorder N Anesthesia Complications N Heart Attack (OK) N Other Skin Condition N Diabetes Y Rhinitis Y Bleeding Disorder Y Food Allergy N Arthritis N Hearing Loss N Hyperlipidemia N Cancer Y Stroke N Dementia N Nasal polyps N Asthma N Sleep Disorder Y GERD/Reflux Y High Cholesterol N Liver Disease N Headaches N Fibromyalgia N Hypertension Y Speech Delay N Kidney Disease Y Past Encounters Encounter ID Performer Location Encounter Start Date Encounter Closed Date Diagnosis/Indication Diagnosis SNOMED-CT Code Diagnosis ICD10 Code Diagnosis IMO Codes Diagnosis Note [id number] RAMBO DE LA ROSA MD [facility] [address] [address] 04/08/2024 09:34:07 04/08/2024 11:03:58 Actinic keratosis 678958130 L57.0 Obstructiv e sleep apnea syndrome 60668984 G47.33 Hypothyroidism 38464546 E03.9 Lesion of skin of left ear 2244097970 1049649 H93.8X2 [id number] RAMBO DE LA ROSA MD [facility] [address] [address] 06/15/2024 14:50:50 06/15/2024 15:28:16 Acute otitis externa 92477329 H60.502 Squamous c ell carcinoma of auricle of ear 897287387 C44.229 [id number] RAMBO DE LA ROSA MD [facility] [address] [address] 07/08/2024 11:27:53 07/08/2024 12:03:02 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 Still swelling of skin graft. No need for any packing Suggest 3 drops distilled vinegar left ear once weekly. F/u in 3 months with PA for cleaning History of malignant neoplasm of skin 812086950 Z85.828 Diffuse actinic keratosis and multiple scars. 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 44140610 H95.812 Squamous c ell carcinoma of skin of ear 173210285 C44.229 Impacted c erumen in left ear 6842928068 075404 H61.22 [id number] ROGERS OLIVEIRA MD [facility] [address] [address] 08/28/2025 09:05:32 08/28/2025 09:43:24 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 55752103 H95.812 Squamous c ell carcinoma of skin of ear 815458404 C44.229 Impacted c erumen in left ear 7609901143 181645 H61.22 History of radiation therapy 136111683 Z92.3 996705 Health Concerns Section Related Observation LastModified by Organization Detai ls LastModified Time None Recorded Concern Status LastModified by Organization Details LastModified Time None Recorded Advance Directives Directive None Recorded Payers Insurance Date Sequence Insurance Name Policy Number Policy Ryan Covered Member ID Ryan Member ID Guarantor Name 08/28/2025 2 [place] [id number] Clay Barron [id number] Clay Barron 08/28/2025 1 [place] [facility] Clay Barron [id number] 2 Clay Barron Notes Date Note Type Note Provider Name and Address Organization Details Recorded Time 07/08/2024 text/html s/p Moh's and plastic reconstruction. Left EAC was narrow but not closed. Ofloxacin drops given last visit. Feels better waiting for possible radiation RAMBO WOOTEN MD [address] [facility],[address], [address], [facility] 07/08/2024 12:20:25 09/15/2024 text/html Patient underwent [...] the left ear. ROGERS OLIVEIRA MD [address] [facility],[address], [address], [facility] 09/15/2024 09:28:53 09/15/2024 text/html Audiological Evaluation HPIReported by PatientHearing LossFor hearing loss perceived, patient reportshearing loss in both ears (left ear worse)but reportsrecent onset (not sudden).Use of amplification or other hearing devicesFor use of amplification or other hearing devices, patient reportsnone (does not use amplification). 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 This resulted in a through and through defect of the cavum jossie. He had a rotational flap done with Dr. Jovel on May 19 to reconstruct the defect. I last saw him back in September, the site was healing well, without evidence of significant canal stenosis. According to his dermatology note, the patient has been going to [facility] for further care. 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 PET and CT scans negative for distant metastasis. He is undergoing immunotherapy and patient reports that he will be having surgery in [place] in the next couple of months. 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 This resulted in a through and through defect of the cavum jossie. He had a rotational flap done with Dr. Jovel on May 19 to reconstruct the defect. I last saw him back in September, the site was healing well, without evidence of significant canal stenosis. According to his dermatology note, the patient has been going to [facility] for further care. 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 PET and CT scans negative for distant metastasis. Patient had immunotherapy, and more recently required parotidectomy followed by radiation that encompassed the lower part of the ear and the neck. This was all completed in the beginning of June.Patient noticing significant reduction of hearing in the left. ROGERS OLIVEIRA MD [address] [facility],[place] [address], [place], [address], [place] - [facility] 08/28/2025 09:42:34
--- OUTSIDE RECORDS SUMMARY | 2025-09-12 10:31 | XMS_ITS | Encounter Summary ---
Author Organization [facility] Address [address] [place] [address] Care Team Providers Care Speech And Drama Teacher Name Role Phone Mariely Vargas MD Primary Care Provider Encounter Details Date Type Department Care Team (Late st Contact Info) Description 08/24/2025 Telephone [facility] Hematology Oncology [address] [place] [address] [facility] [place] [place] Social History Tobacco Use Types Packs/Day Years [...] Record ed Within the last 3 months, ho w many times did you visit the emergency [...] care for your loved ones. For example, exceptional children teacher assistant or elderly care for an older adult? [...] documented in this encounter Progress Notes * Kari Peterson MA - 08/24/2025 2:12 PM EDT error documented in this encounter Plan of Treatment Upcoming Encounters Date Type Department Care Team (Late st Contact Info) Description 09/21/2025 12:00 PM EST Appointment [facility] Endoscopy [address] [place] [address] Faraz Adams MD [address] [address] 12/05/2025 10:00 AM EST Office Visit [facility] Hematology Oncology [address] [place] [address] Lor Bal MD [address] [place] [address] documented as of this encounter Visit Diagnoses Not on filedocumented in this encounter Additional Health Concerns Infection Onset Date Last Indicated Resolved Time 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
--- OUTSIDE RECORDS SUMMARY | 2025-09-12 10:31 | XMS_ITS | Encounter Summary ---
Author Organization [facility] Address [address] [facility] [address] [place] [address] Phone Care Team Providers Care Assistant Chief Engineer Name Role Phone Mariely Vargas MD Primary Care Provider Lindsay Perales MD Unavailable [phone] Richard Eden DO, Justine Unavailable [phone] Maribel Nur MD, MPH Unavailable Kezia Webb MD Unavailable [phone] Lor Bal MD Unavailable [phone] Mynor Coats MD Unavailable [phone] Eliseo Rand RN Unavailable Ayaka [email or web address] Grover Barbosa MD Unavailable Neville Torres MD Unavailable + [phone] Kya Diaz RN Unavailable Naga [email or web address] Yvonne Lewis Unavailable [phone] Brennon Delcid MD, MPH Unavailable + Cathy Schmidt PA-C Unavailable + Encounter Details Date Type Department Care Team (Late st Contact Info) Description 12/02/2024 Procedure Pass [facility] Imaging Department, [facility] [place], [place] [address] [facility], Floor L1 [place] [address] Social History Tobacco Use Types Packs/Day Years [...] todd Contact Info) Description 06/21/2025 Procedure Pass [facility] Imaging Department, [facility], [place] [address] [facility], Floor [address]1 [place] [address] 07/24/2025 Procedure Pass [facility] Imaging Department, [facility], MRI [address] [facility], Floor [address] [place] [address] 09/13/2025 9:30 AM EST Blood Draw [facility] Imaging Department, [facility], Imaging [facility] [address] [facility], Floor [address] [place] [address] Libertad Ramos V DO [address] [place] [address] [email or web address] 09/13/2025 12:30 PM EST Appointment [facility] Imaging Department, [facility], PET/CT [address] [place] [address] Libertad Ramos V, DO [address] [place] [address] [email or web address] 09/13/2025 1:40 PM EST Appointment [facility] Imaging Department, [facility], [place] [address] [facility], Floor [address] [place] [address] Cathy Schmidt PA-C [address] [place] [address] [place] [address] Brennon Delcid MD, MPH [address] [place] [address], ASB1- L2 [place] [address] [email or web address] 09/13/2025 3:30 PM EST Office [facility] [address] [facility], 11th [place] [address] Brennon Delcid MD, MPH [address] [facility], ASB1- L2 [place] [address] [email or web address] 09/15/2025 8:30 AM EST Office Visit [facility], [address], 11th [place] [address] Maribel Nur MD, MPH [address] [place] [address] [email or web address] 09/19/2025 10:00 AM EST [facility]icine [facility], [address], 5th [place] [address] Libertad Ramos DO [address] [place] [address] [email or web address] 10/04/2025 1:20 PM EST Office Visit [facility] [address] [place] [address] Alla Escobar MD [address] [place] [address] 3[address] [place] [address] 10/26/2025 11:40 AM EST Appointment [facility] Imaging Department, [facility], MRI [address] [place] [address], Floor [address]1 [place] [address] Libertad Ramos V DO [address] [place] [address] [email or web address] 11/07/2025 10:30 AM EST Blood Draw Laboratory Services, [facility] [address] [facility], 2nd Floor [place], [place] Darinel Ordaz M.D. Leukemia MD Mike [address] [email or web address] 11/07/2025 11:30 AM EST Office Visit [facility], Division of Hematologic Oncology, [facility] [address] [facility], 8th Floor [place], [place] [phone] Darinel Ordaz M.D. Leukemia MD Mike [address] [place] [address] [email or web address] 11/30/2025 11:00 AM EST Office Visit Oral Medicine, [facility] [address] [facility], 11th [place] [address] Hao Robertson, DMD, PhD [address] [place] [address] [email or web address] [facility] documented as of this encounter Visit Diagnoses Not on filedocumented in this encounter Care Teams Assistant Chief Engineer Relationship Specialty Start Date End Date Mariely Vargas MD [address] [place] [address] PCP - General Internal Medicine 03/29/24 Lindsay Perales MD [address] [place] [address] [email or web address] Radiation Oncology 07/12/24 Libertad Ramos DO [address] [place] [address] [email or web address] Medical Oncology 12/22/24 Maribel Nur MD, MPH [address] [place] [address] Loida@[email or web address] Otolaryngology 12/22/24 Kezia Webb MD [address] [place] [address] [email or web address] Dermatology 12/22/24 Lor Bal MD [address] [place] [phone] Wendy [email or web address] Internal Medicine 12/22/24 Mynor Coats MD [address] [place] [address] Dermatology 01/02/25 Eliseo Rand RN 450 [place] [address] [email or web address] Associate Infusion Nurse 01/02/25 Grover Barbosa MD [address] [place] [address] [place] [address] Import/Export Analyst Pulmonary Disease 01/05/25 Neville Torres MD [address] [address] [email or web address] Urology 01/27/25 Kya Diaz, RN [address] [address] [email or web address] Associate Infusion Nurse 01/23/25 Yvonne Lewis 50 [place] [address] [email or web address] Exchange Specialist 04/13/25 Brennon Delcid MD, MPH [address] [place] [address], ASB1- L2 [place] [address] [email or web address] [email or web address] Radiation Oncology 06/02/25 Cathy Schmidt PA-C [address] [place] [address] [place] [address] [email or web address] Physician Station Chief 06/14/25 documented as of this encounter Additional Source Comments The information contained in this document represents components of the legal health record. It is not the complete legal health record.[facility]
--- OUTSIDE RECORDS SUMMARY | 2025-09-12 10:31 | XMS_ITS | Encounter Summary ---
Author Organization [facility] Address [address] [facility] [address] [place] [address] Phone Care Team Providers Care Deputy Sheriff/Investigator Name Role Phone Mariely Vargas MD Primary Care Provider Lindsay Perales MD Unavailable [phone] Richard Eden DO, Justine Unavailable [phone] Maribel Nur MD, MPH Unavailable Kezia Webb MD Unavailable [phone] Lor Bal MD Unavailable [phone] Mynor Coats MD Unavailable Eliseo Rand RN Unavailable Ayaka [email or web address] Grover Barbosa MD Unavailable [phone] Neville Torres MD Unavailable + [phone] Kya Diaz RN Unavailable Naga Raygoza@[email or web address] Yvonne Lewis Unavailable [phone] Brennon Delcid MD, MPH Unavailable + Cathy Schmidt PA-C Unavailable + Encounter Details Date Type Department Care Team (Late st Contact Info) Description 11/23/2024 Procedure Pass [facility], Ct Scan - [address] [address] Social History Tobacco Use Types Packs/Day Years [...] Pass [facility] Imaging Department, [facility], [place] [address] [facility], Floor L1 [place] [address] 07/24/2025 Procedure Pass [facility] Imaging Department, [facility], MRI [address] [facility], Floor L1 [place] [address] 09/13/2025 9:30 AM EST Blood Draw [facility] Imaging Department, [facility], Imaging Diueu-ye-Elxl [address] [facility], Floor [address]1 [place] [address] Libertad Ramos V, DO [address] [place] [address] [email or web address] 09/13/2025 12:30 PM EST Appointment [facility] Imaging Department, [facility], PET/CT 450 [place] [address] Libertad Ramos V, DO 450 [place] [address] [email or web address] 09/13/2025 1:40 PM EST Appointment [facility] Imaging Department, [facility], [place] [address] [facility], Floor [address]1 [place] [address] Cathy Schmidt PA-C [address] [place] [address] [place] [address] Brennon Delcid MD, MPH [address] [place] [address], ASB1- L2 [place] [address] [email or web address] 09/13/2025 3:30 PM EST Office Visit [facility], [facility] [address] [facility], 11th [place] [address] Brennon Delcid MD, MPH 75 [facility], [facility]- [address] [address] [email or web address] 09/15/2025 8:30 AM EST Office Visit [facility], [address], [address] [place] [address] Maribel Nur MD, MPH [address] [place] [address] [email or web address]@[facility] 09/19/2025 10:00 AM EST Telemedicine [facility], [address], 5th [place] [address] Libertad Ramos DO [address] [place] [address] [email or web address] 10/04/2025 1:20 PM EST Office Visit [facility] [address] [place] [address] Alla Escobar MD [address] [place] [address] 3rd [place] [address] 10/26/2025 11:40 AM EST Appointment [facility] Imaging Department, [facility], MRI [address] [place] [address], Floor [address]1 [place] [address] Libertad Ramos V DO [address] [place] [address] [email or web address] 11/07/2025 10:30 AM EST Blood Draw Laboratory Services, [facility] [address] [facility], 2nd [place] [address] Darinel Ordaz M.D. Leukemia MD Mike [address] [facility] [place] [address] [email or web address] 11/07/2025 11:30 AM EST Office Visit [facility], Division of Hematologic Oncology, [facility] [address] [facility], 8th [place] [address] Darinel Ordaz M.D. Leukemia MD Mike 450 [facility] [place] [address] [email or web address] 11/30/2025 11:00 AM EST Office Visit Oral Medicine, [facility] [address] [facility], 11th [place] [address] Hao Robertson, DMD, PhD [address] [place] [address] [email or web address] documented as of this encounter Visit Diagnoses Not on filedocumented in this encounter Care Teams Deputy Sheriff/Investigator Relationship Specialty Start Date End Date Mariely Vargas MD [address] [address] PCP - General Internal Medicine 03/29/24 Lindsay Perales MD [address] [place] [address] [email or web address] Radiation Oncology 07/12/24 Libertad Ramos DO [address] [place] [address] [email or web address] Medical Oncology 12/22/24 Maribel Nur MD, MPH [address] [place] [address] [email or web address] Otolaryngology 12/22/24 Kezia Webb MD [address] [place] [address] [email or web address] Dermatology 12/22/24 Lor Bal MD [address] [place] [phone] Wendy [email or web address] Internal Medicine 12/22/24 Mynor Coats MD [facility] [address] Dermatology 01/02/25 Eliseo Rand RN 450 [place], [place] Zoe@[email or web address] Associate Infusion Nurse 01/02/25 Grover Barbosa MD [address] [place] [address] [place] [address] Film Librarian Pulmonary Disease 01/05/25 Neville Torres MD [address] [place] [address] Urology 01/27/25 Kya Diaz, RN 3640 [facility] 103 [place] [address] [email or web address] Associate Infusion Nurse 01/23/25 Yvonne Lewis 50 [place] [address] [email or web address] Microbiological Lab Technician 04/13/25 Brennon Delcid MD, MPH [address] [place] [address], ASB1- L2 [place] [address] [email or web address] Radiation Oncology 06/02/25 Cathy Schmidt PA-C [address] [place] [address] [place] [address] [email or web address] Physician Gm/[employer] Global Publisher Business 06/14/25 documented as of this encounter Additional Source Comments The information contained in this document represents components of the legal health record. It is not the complete legal health record.[facility]
--- OUTSIDE RECORDS SUMMARY | 2025-09-12 10:32 | XMS_ITS | Clinical Summary ---
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 Active LORazepam (ATIVAN) 0.5 mg tablet Take 1 tablet (0.5 mg total) by mouth every 6 hours as needed. 025 Active clobetasoL (TEMOVATE) 0.05 % ointment Apply topically 3 (three) times a day. 15 g 2 Active hydrOXYzine HCL (ATARAX) 25 mg tablet Take 1 tablet (25 mg total) by mouth 3 (three) times a day. 90 each 025 2024 Active sulfamethoxazo le-trimethopri m (BACTRIM DS,SEPTRA DS) 800-160 mg per tablet TAKE 1 TAB BY MOUTH 2 TIMES A DAY FOR 21 DAYS Active aspirin 81 mg tablet Take 81 mg by mouth 1 (one) time each day. Active Clenpiq 10 mg-3.5 gram- 12 gram/160 mL solution Take 2 Bottles by mouth See administration instructions. 320 mL Active gabapentin (NEURONTIN) 300 mg capsule Take 1 capsule (300 mg total) by mouth every 6 (six) hours. 120 each 11 2024 Discontinued guaiFENesin-co deine (ROBITUSSIN-AC ) 100-10 mg/5 mL syrupIndicatio ns:Prostate cancer ([facility] V24, [facility] V28),Acute pneumonia Take 10 mL by mouth every 6 (six) hours if needed for cough. Max Daily Amount: 40 mL 100 mL 2024 Discontinued ferrous gluconate (FERGON) 324 mg (38 mg iron) tablet Take 1 tablet (324 mg total) by mouth every other day. 15 each 2024 diphenhydramin e-txoubmci-jnx nesium-simethi cone-lidocaine (MAGIC MOUTHWASH) [phone]- 200 mg/30 mL liquid suspension Use 5 mL in the mouth or throat 4 (four) times a day. Swish and Spit 480 mL 025 2024 Discontinued oxyCODONE (OxyCONTIN) 20 mg 12 hr abuse-deterren t tablet Take 1 tablet (20 mg total) by mouth every 12 (twelve) hours. Do not crush, chew, or split. Max Daily Amount: 40 mg 60 each 025 2024 Discontinued oxyCODONE (OxyCONTIN) 10 mg 12 hr abuse-deterren t tablet Take 1 tablet (10 mg total) by mouth 2 (two) times a day. Do not crush, chew, or split. Max Daily Amount: 20 mg 20 tablet 025 2024 Discontinued Active Problems Problem Noted Date Diagnosed Date Radiation-induced esophagitis 07/28/2025 Mucositis 07/28/2025 Daria esophagitis ([facility] V24, [facility] V28) 0 07/28/2025 Chronic left-sided lumbar radiculopathy 07/27/20 25 Delirium 07/04/2025 Pneumonia of left lower lobe due to infectious o rganism 06/30/2025 Anemia 06/29/2025 Gastrointestinal hemorrhage, unspecified gastrointestinal hemorrhage type 06/29/2025 Moderate protein-calorie malnutrition ([facility] V 24) 05/05/2025 Anxiety 05/05/2025 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 On antineoplastic chemotherapy 02/16/2025 Drug therapy 02/16/2025 Acute left-sided back pain with sciatica 025 Intractable back pain 02/04/2025 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 05/10 Nephrolithiasis 10/28/2022 Splenomegaly 10/28/2022 Deep venous thrombosis ([facility] V24, [facility] V28 ) 07/29/2022 Overview (12/18/2022): 1998 at time of DX PV Myelofibrosis ([facility] V24, [facility] V28) 022 Post-phlebitic syndrome 07/29/2022 Pulmonary embolus ([facility] V24, [facility] V28) Thrombocytosis 06/26/2020 Irritable bowel syndrome with diarrhea 0 Lung nodule 05/22/2020 Irritable bowel syndrome 12/29/2017 Kidney disease 12/29/2017 Obstructive sleep apnea syndrome 12/29/2017 Overview (12/18/2022): CPAP Pulmonary nodules 12/29/2017 Skin cancer of nose 12/29/2017 Overview (12/18/2022): Type of cancer not indicated, removed 09/2013 Acquired hypothyroidism 05/26/2017 Chronic gout 05/26/2017 Hyperglycemia 05/26/2017 CHICO (obstructive sleep apnea) 05/26/2017 PV (polycythemia vera) ([facility] V24, [facility] V28 ) 05/26/2017 Prostate cancer ([facility] V24, [facility] V28) 05/26 Resolved Problems Problem Noted Date Diagnosed Date Resolved Date Sepsis ([facility] V24, [facility] V28) 07/26/2025 07/28/2025 CLL (chronic lymphocytic marcie kemia) ([facility] V24, [facility] V28) 05/05/2025 09/05/2025 Encounters Date Type Department Care Team Description 09/11/2025 Telephone Gastroenterology - [address] [phone] Faraz Adams MD 09/05/2025 9:30 AM EDT Office Visit [facility] Hematology Oncology [address] [place] [phone] Lor Adame MD PV (polycythemia vera) ([facility] V24, [facility] V28) (Primary Dx); Myelofibrosis ([facility] V24, [facility] V28); 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; Intractable back pain; Pneumonia of left lower lobe due to infectious organism 08/24/2025 Telephone [facility] Hematology Oncology [address] [place] [phone] Kari Peterson MA 08/24/2025 Telephone [facility] Hematology Oncology [address] [place] [phone] Lor Adame MD 08/23/2025 Telephone Gastroenterology - [address] [phone] Jana Davis MD 08/18/2025 Telephone [facility] Hematology Oncology [address] [place] [phone] Eraramonia-Iy Lor marques MD 07/26/2025 9:07 PM EDT - 07/28/2025 3:22 PM EDT Hospital Encounter [facility] Intermediate Care Unit B [address] [place] [phone] Jose Alan MD Kokkinos, Erika, MD Jones, Christopher, MD Japaridze, Anna, MD Fever, unspecified fever cause (Primary Dx); Other dysphagia; History of radiation therapy Discharge Disposition: Home or Self Care 07/25/2025 9:00 AM EDT Office Visit [facility] Hematology Oncology [address] [place] [phone] Juan Manuel Green MD 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 (Primary Dx) 07/25/2025 8:20 AM EDT - 07/25/2025 11:59 PM EDT Hospital Encounter [facility] Xray [address] [place] [phone] Juan Manuel Green MD Discharge Disposition: Home or Self Care 07/25/2025 8:00 AM EDT - 07/25/2025 11:59 PM EDT Hospital Encounter [facility] Infusion Center [address] [place] [phone] Pneumonia of left lower lobe due to infectious organism (Primary Dx); Skin cancer of nose Discharge Disposition: Home or Self Care 07/18/2025 Telephone Gastroenterology - 299 [facility] [address] [phone] Jana Davis MD 07/04/2025 9:30 AM EDT Office Visit [facility] Hematology Oncology [address] [place] [phone] Eraramonia-Iy Lor marques MD Myelofibrosis ([facility] V24, [facility] V28) (Primary Dx); 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; Intractable back pain; Multiple subsegmental pulmonary emboli without acute cor pulmonale ([facility]/H[facility] V24, [facility] V28); Moderate protein-calorie malnutrition ([facility] V24); Thrombocytosis; Splenomegaly; Gastrointestinal hemorrhage, unspecified gastrointestinal hemorrhage type; Anxiety; Acute deep vein thrombosis (DVT) of other specified vein of right lower extremity ([facility] V24, [facility] V28); Pneumonia of left lower lobe due to infectious organism; Delirium 07/04/2025 Telephone Gastroenterology - 299 [facility] [address] [phone] Faraz Adams MD 06/30/2025 7:17 AM EDT Anesthesia Event [facility] Endoscopy [address] [place] [phone] Ami Zamora CRNA 06/28/2025 8:37 PM EDT - 06/30/2025 6:33 PM EDT Hospital Encounter [facility] Urology Unit [address] [place] [phone] Marco Antonio Jean MD Jones, Christopher, MD Alam, Aroosa, MD Gastrointestinal hemorrhage, unspecified gastrointestinal hemorrhage type (Primary Dx); Fatigue associated with anemia; Iron deficiency anemia, unspecified iron deficiency anemia type Discharge Disposition: Home or Self Care 06/15/2025 11:04 AM EDT - 06/15/2025 11:59 PM EDT Hospital Encounter [facility] MRI [address] [place] [phone] 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 Discharge Disposition: Home or Self Care 06/15/2025 11:04 AM EDT - 06/15/2025 11:59 PM EDT Hospital Encounter [facility] MRI [address] [place] [phone] 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 Discharge Disposition: Home or Self Care 06/15/2025 11:03 AM EDT - 06/15/2025 11:59 PM EDT Hospital Encounter [facility] MRI [address] [place] [phone] 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 Discharge Disposition: Home or Self Care from Last 3 Months Surgical History Surgery Date Site/Laterality Comments PROSTATE SURGERY PROCEDURE:PROSTATE SURGERY Medical History Medical History Date Comments Obstructive sleep apnea (adult) (pediatric) DX:Obstructive sleep apnea (adult) (pediatric) Polycythemia DX:Polycythemia Hypothyroidism DX:Hypothyroidis m Hyperglycemia DX:Hyperglycemia Prostate cancer (CMS/HCC V24, CMS/HCC V28) DX:Prostate cancer (HCC) Family History Medical History Relation Name Comments Diabetes Brother 1 No Known Problems Brother 2 Relation Name Status Comments Brother 1 Brother 2 Alive Social History Tobacco Use Types Packs/Day Years Used Date Smoking Tobacco: Never Smokeless Tobacco: Never Tobacco Cessation:Counseling Given: Not Answered Alcohol Use Standard Drinks/Week Comments No 0 [...] care for your loved ones. For example, children's ministries director or elderly care for an older adult? [...] Sign Reading Time Taken Comments Blood Pressure 107/56 09/05/2025 9:29 AM EDT Pulse 75 09/05/2025 9:29 AM EDT Temperature 36.4 C (97.6 F) 09/05/2025 9:29 AM EDT Respiratory Rate 18 07/28/2025 10:58 AM EDT Oxygen Saturation 100% 09/05/2025 9:29 AM EDT Inhaled Oxygen Concentration - - Weight 75 kg (165 lb 6.4 oz) 09/05/2025 9:29 AM EDT Height 177.8 cm (5' 10 ) 09/05/2025 9:29 AM EDT Body Mass Index 23.73 09/05/2025 9:29 AM EDT Plan of Treatment Upcoming Encounters Date Type Department Care Team (Late st Contact Info) Description 09/21/2025 12:00 PM EST Appointment [facility] Endoscopy [address] [place] [phone] Faraz Adams MD [address] [phone] 12/05/2025 10:00 AM EST Office Visit [facility] Hematology Oncology [address] [place] [phone] Lor Bal MD [address] [place] [phone] Health Maintenance Due Date Last Done Comments Diabetes: Annual Foot Exam 1961 Diabetes: Annual Retina Eye Exam 1961 DTaP,Tdap,and Td Vaccines (1 - Tdap) 1970 Zoster Vaccines (1 of 2) 1970 RSV Immunization Adult Patients (1 - Risk 50-74 years 1-dose series) 2001 Hepatitis C Screening 10/16/2022 Medicare Annual Wellness Visit 10/16/2022 Depression Screening 11/09/2024 Diabetes: Annual Urine Albumin-Creatinine Ratio (uACR) 07/28/2025 07/28/2024, 12/31/2023, 12/31/2023 COVID-19 Vaccine ( season) 2025 09/04/2025, 09/04/2022, 03/06/2022, Additional history exists Diabetes: Blood Sugar Control Test (HGBA1C) 12/15/2025 06/14/2025, 01/20/2025, 12/31/2023 Falls Risk Assessment 07/28/2026 07/28/2025 Social Influencers of Health Screening 07/28/2026 07/28/2025 Diabetes: Annual GFR (Glomerular Filtration Rate) 08/10/2026 08/10/2025, 07/28/2025, 07/27/2025, Additional history exists Cholesterol Screening (Lipid Panel) 12/31/2028 12/31/2023, 12/31/2023 Colorectal Cancer Screening: Colonoscopy 07/18/2035 07/18/2025, 07/18/2025, 07/18/2025, Additional history exists Influenza Vaccine Completed 09/04/2025, , 09/01/2023, Additional history exists Pneumococcal Vaccine: 50+ Years Completed 09/04/2025 HIB Vaccines Aged Out No longer eligi [...] on patient's age to complete this topic Goals Goal Patient Goal Type Associated Problems Recent Progress Patient-Stated? Author Autogenerat ed Goal Care Plan Autogenerated Problem No Curtis Craft Procedures Procedure Name Priority Date/Time Associated Diagnosis Comments MANUAL DIFFERENTIAL - [facility] WAM Routine 08/30/2025 3:57 PM EDT PV (polycythemia vera) (CMS/HCC V24, CMS/HCC V28) Myelofibrosis (CMS/HCC V24, CMS/HCC V28) CBC WITH AUTO DIFFERENTIAL Routine 08/30/2025 3:57 PM EDT PV (polycythemia vera) (CMS/HCC V24, CMS/HCC V28) Myelofibrosis (CMS/HCC V24, CMS/HCC V28) CBC AND DIFFERENTIAL Routine 08/30/2025 3:57 PM EDT PV (polycythemia vera) (CMS/HCC V24, CMS/HCC V28) Myelofibrosis (CMS/HCC V24, CMS/HCC V28) MANUAL DIFFERENTIAL - [facility] WAM Routine 07/28/2025 [...] 9:23 AM EDT Diabetes mellitus without complication (CMS/HCC V24, CMS/HCC V28) HM URINE ALBUMIN CREATININE RATIO Routine 12/31/2023 LIPID PANEL Routine 12/31/2023 from Last 3 Months or Most Recently Relevant to Health Maintenance Results * (ABNORMAL) Manual differential (08/30/2025 3:57 PM EDT) Only the most recent of8 resultswithin the time period is included. Neutrophils % 83.0 % LAB HEMETOLOGY METHOD 08/30/2025 5:[address] [facility] Bands % 1.0 % LAB HEMETOLOGY METHOD 08/30/2025 5:[address] [facility] Lymphocytes % 5.0 % LAB HEMETOLOGY METHOD 08/30/2025 5:[address] [facility] Monocytes % 0.0 % LAB HEMETOLOGY METHOD 08/30/2025 5:[address] [facility] Eosinophils % 5.0 % LAB HEMETOLOGY METHOD 08/30/2025 5:[address] [facility] Basophils % 4.0 % LAB HEMETOLOGY METHOD 08/30/2025 5:[address] [facility] Metamyelocytes % 1.0(H) % LAB HEMETOLOGY METHOD 08/30/2025 5:[address] [facility] Myelocytes % 2.0(H) % LAB HEMETOLOGY METHOD 08/30/2025 5:[address] [facility] Neutrophils Absolute Manual 13.20(H) 1.50 - 7.00 K/mcL LAB HEMETOLOGY METHOD 08/30/2025 5:[address] [facility] Bands Absolute Manual 0.16(H) 0.00 - 0.00 K/mcL LAB HEMETOLOGY METHOD [facility] Lymphocytes Absolute 0.80(L) 1.00 - 5.00 K/mcL LAB HEMETOLOGY METHOD 08/30/2025 5:[address] [facility] Monocytes Absolute Manual 0.00(L) 0.20 - 1.00 K/mcL LAB HEMETOLOGY METHOD 08/30/2025 5:[address] [facility] Eosinophils Absolute Manual 0.80(H) 0.00 - 0.50 K/mcL LAB HEMETOLOGY METHOD 08/30/2025 5:[address] [facility] Basophils Absolute Manual 0.64(H) 0.00 - 0.20 K/mcL LAB HEMETOLOGY METHOD 08/30/2025 5:[address] [facility] Metamyelocytes Absolute Manual 0.16(H) 0.00 - 0.00 K/mcL LAB HEMETOLOGY METHOD 08/30/2025 5:[address] [facility] Myelocytes Absolute Manual 0.32(H) 0.00 - 0.00 K/mcL LAB HEMETOLOGY METHOD 08/30/2025 5:[address] [facility] Rbc Morphology Present( A) Consistent with indices, Normal for [place] LAB HEMETOLOGY METHOD 08/30/2025 5:[address] [facility] Platelet Morphology - WAM See Note(A) Normal LAB HEMETOLOGY METHOD 08/30/2025 5:[address] [facility] Comment:PLT: Giant platelets seen Ovalocytes Present 5 - 10%(A) (none) LAB HEMETOLOGY METHOD 08/30/2025 5:[address] [facility] Blood Venous blood specimen / Unknown Venipuncture / Unknown 08/30/2025 3:57 PM EDT 08/30/2025 4:36 PM EDT Lor Bal MD LAB BLOOD ORDERABLE S Final Result [facility] [address] [place] [address], * (ABNORMAL) CBC auto differential (08/30/2025 3:57 PM EDT) Only the most recent of9 resultswithin the time period is included. WBC 15.9(H) 4.8 - 10.8 K/mcL LAB HEMETOLOGY METHOD 08/30/2025 5:[address] [facility] RBC 3.70(L) 4.50 - 5.50 M/mcL LAB HEMETOLOGY METHOD 08/30/2025 5:[address] [facility] Hemoglobin 9.9(L) 13.5 - 17.5 g/dL LAB HEMETOLOGY METHOD 08/30/2025 5:[address] [facility] Hematocrit 32.4(L) 42.0 - 54.0 % LAB HEMETOLOGY METHOD 08/30/2025 5:[address] [facility] MCV 87.3 79.0 - 98.0 FL LAB HEMETOLOGY METHOD 08/30/2025 5:[address] [facility] MCH 26.7(L) 27.0 - 32.0 pcg LAB HEMETOLOGY METHOD 08/30/2025 5:[address] [facility] MCHC 30.6(L) 32.0 - 37.0 g/dL LAB HEMETOLOGY METHOD 08/30/2025 5:[address] [facility] RDW 22.3(H) 11.0 - 15.0 % LAB HEMETOLOGY METHOD 08/30/2025 5:[address] [facility] Platelets 464(H) 130 - 400 K/mcL LAB HEMETOLOGY METHOD 08/30/2025 5:[address] [facility] MPV 11.0 7.0 - 11.0 FL LAB HEMETOLOGY METHOD 08/30/2025 5:[address] [facility] NRBC 0.2 <1.0 % LAB HEMETOLOGY METHOD 08/30/2025 5:[address] [facility] NRBC Absolute 0.03 <0.10 K/mcL LAB HEMETOLOGY METHOD 08/30/2025 5:[address] [facility] Blood Venous blood specimen / Unknown Venipuncture / Unknown 08/30/2025 3:57 PM EDT 08/30/2025 4:36 PM EDT us Subramnaveed Bal MD LAB BLOOD ORDERABLE S Final Result [facility] [address] [place] [address], [place] [phone] * (ABNORMAL) Basic metabolic panel (07/28/2025 6:08 AM EDT) Only the most recent of4 resultswithin the time period is included. Sodium 140 133 - 145 mmol/L LAB CHEMISTRY METHOD 07/28/2025 8:08 AM [facility] Potassium 4.3 3.5 - 5.5 mmol/L LAB CHEMISTRY METHOD 07/28/2025 8:08 AM [facility] Chloride 106 96 - 110 mmol/L LAB CHEMISTRY METHOD 07/28/2025 8:08 AM [facility] CO2 29 21 - 32 mmol/L LAB CHEMISTRY METHOD 07/28/2025 8:08 AM [facility] Anion Gap 5 3 - 11 LAB CHEMISTRY METHOD 07/28/2025 8:08 AM [facility] Glucose 115(H) 70 - 100 mg/dL LAB CHEMISTRY METHOD 07/28/2025 8:08 AM [facility] BUN 6 5 - 25 mg/dL LAB CHEMISTRY METHOD 07/28/2025 8:08 AM [facility] Creatinine 0.60(L) 0.70 - 1.30 mg/dL LAB CHEMISTRY METHOD 07/28/2025 8:08 AM [facility] eGFR 102 >=60 mL/min/1. 73m2 LAB CHEMISTRY METHOD 07/28/2025 8:08 AM [facility] Comment:Calculation based on the Chronic Kidney Disease Epidemiology Collaboration (CKD-EPI) equation refit without adjustment for race. BUN/Creatinine Ratio 10.0 LAB CHEMISTRY METHOD 07/28/2025 8:08 AM [facility] Calcium 8.5 8.5 - 10.5 mg/dL LAB CHEMISTRY METHOD 07/28/2025 8:[address] [facility] Blood Venous blood specimen / Unknown Venipuncture / Unknown 07/28/2025 6:08 AM EDT 07/28/2025 6:30 AM EDT Etelvina Martinez MD LAB BLOOD ORDERABLES Final Res ult Performing Organization Address [facility]/ZIP Co de Phone Number [facility] [address] [place] [address], [place] [phone] * Magnesium (07/27/2025 4:08 AM EDT) Only the most recent of5 resultswithin the time period is included. [facility] Magnesium 1.9 1.9 - 2.6 mg/dL LAB CHEMISTRY METHOD 07/27/2025 5:[address] [facility] Blood Venous blood specimen / Unknown Venipuncture / Unknown 07/27/2025 4:08 AM EDT 07/27/2025 4:50 AM EDT Varun Lovelace MD LAB BLOOD ORDERABLES Final Result Performing Organization Address [facility] de Phone Number [facility] [address] [place] [address], [place] [phone] * (ABNORMAL) Urinalysis with reflex microscopic and culture (07/27/2025 12:07 AM EDT) [facility] Specific [place] Urine >1.045(H) 1.003 - 1.030 LAB URINALYSIS - AUTOMATED METHOD 07/27/2025 12:[address] [facility] pH, Urine 5.5 5.0 - 8.0 pH LAB URINALYSIS - AUTOMATED METHOD 07/27/2025 12:[address] [facility] Leukocytes, Urine Negative Negative LAB URINALYSIS - AUTOMATED METHOD 07/27/2025 12:[address] [facility] Nitrite, Urine Negative Negative LAB URINALYSIS - AUTOMATED METHOD 07/27/2025 12:[address] [facility] Protein, Urine Trace <=Trace mg/dL LAB URINALYSIS - AUTOMATED METHOD 07/27/2025 12:21 AM [facility] Glucose, Urine Negative Negative mg/dL LAB URINALYSIS - AUTOMATED METHOD 07/27/2025 12:21 AM [facility] Ketones, Urine Negative Negative mg/dL LAB URINALYSIS - AUTOMATED METHOD 07/27/2025 12:[address] [facility] Urobilinogen , Urine 0.2 0.2 - 1.0 mg/dL LAB URINALYSIS - AUTOMATED METHOD 07/27/2025 12:21 AM [facility] Bilirubin, Urine Negative Negative LAB URINALYSIS - AUTOMATED METHOD 07/27/2025 12:21 AM [facility] Blood, Urine Negative Negative LAB URINALYSIS - AUTOMATED METHOD 07/27/2025 12:21 AM [facility] Urine Urine specimen obtained by clean catch procedure / Unknown Non-blood Collection / Unknown 07/27/2025 12:07 AM EDT 07/27/2025 12:16 AM EDT Jose Alan MD LAB URINE ORDERABLES Fin al Result [facility] [address] [place] [address], * [place] urine culture tube (07/27/2025 12:07 AM EDT) Only the most recent of2 resultswithin the time period is included. Extra Tube Hold for add-ons. 07/27/2025 2:[address] [facility] Comment:Auto resulted. Urine Urine specimen obtained by clean catch procedure / Unknown Non-blood Collection / Unknown 07/27/2025 12:07 AM EDT 07/27/2025 12:16 AM EDT us Jose Alan MD LAB URINE ORDERABLES Fin al Result [facility] [address] [place] [address], [place] [phone] * CT Neck Soft Tissue w Contrast [...] CT soft tissue neck with contrast Comparison: CT/KO/KY/SR - NECK C+ CT - 05/17/24 14:11 [...] CT soft tissue neck with contrast Comparison: CT/KO/KY/SR - NECK C+ CT - 05/17/24 14:11 [...] by: Michael Cooper MD on 07/26/2025 23:22:37 Jose Alan MD IMG CT PROCEDURES Final Result * Blood Culture, Peripheral Draw #1 (07/26/2025 10:14 PM EDT) Only the most recent of4 resultswithin the time period is included. [facility] Culture, Blood No growth at 5 days LAB MICROBIOLOGY METHOD 07/31/2025 11:[address] [facility] Blood Venous blood specimen / Unknown Venipuncture / Unknown 07/26/2025 10:14 PM EDT 07/26/2025 10:53 PM EDT Tamara Banks MD LAB MICROBIOLOGY - GENERAL ORD ERABLES Final Result [facility] [address] [place] [address], [place] [phone] * Respiratory virus panel molecular study (07/26/2025 9:51 PM EDT) [facility] Adenovirus Detection by PCR Not Detected Not Detected LAB MICROBIOLOGY METHOD 07/26/2025 10:[address] [facility] Influenza A PCR Not Detected Not Detected LAB MICROBIOLOGY METHOD 07/26/2025 10:[address] [facility] Influenza B PCR Not Detected Not Detected LAB MICROBIOLOGY METHOD 07/26/2025 10:[address] [facility] Coronavirus 229E Not Detected Not Detected LAB MICROBIOLOGY METHOD 07/26/2025 10:[address] [facility] Coronavirus HKU1 Not Detected Not Detected LAB MICROBIOLOGY METHOD 07/26/2025 10:[address] [facility] Coronavirus OC43 Not Detected Not Detected LAB MICROBIOLOGY METHOD 07/26/2025 10:[address] [facility] Coronavirus NL63 Not Detected Not Detected LAB MICROBIOLOGY METHOD 07/26/2025 10:[address] [facility] Parainfluenza Virus 1 Not Detected Not Detected LAB MICROBIOLOGY METHOD 07/26/2025 10:[address] [facility] Parainfluenza Virus 2 Not Detected Not Detected LAB MICROBIOLOGY METHOD 07/26/2025 10:[address] [facility] Parainfluenza Virus 3 Not Detected Not Detected LAB MICROBIOLOGY METHOD 07/26/2025 10:[address] [facility] Parainfluenza Virus 4 Not Detected Not Detected LAB MICROBIOLOGY METHOD 07/26/2025 10:[address] [facility] RSV PCR Not Detected Not Detected LAB MICROBIOLOGY METHOD 07/26/2025 10:[address] [facility] Human Metapneumovirus A and B Not Detected Not Detected LAB MICROBIOLOGY METHOD 07/26/2025 10:[address] [facility] Rhinovirus/Entero virus Not Detected Not Detected LAB MICROBIOLOGY METHOD 07/26/2025 10:[address] [facility] Bordetella pertussis Not Detected Not Detected LAB MICROBIOLOGY METHOD 07/26/2025 10:[address] [facility] Bordetella parapertussis Not Detected Not Detected LAB MICROBIOLOGY METHOD 07/26/2025 10:[address] [facility] Mycoplasma pneumo by PCR Not Detected Not Detected LAB MICROBIOLOGY METHOD 07/26/2025 10:[address] [facility] Chlamydia pneumoniae Not Detected Not Detected LAB MICROBIOLOGY METHOD 07/26/2025 10:[address] [facility] SARS COV-2 Not Detected Not Detected LAB MICROBIOLOGY METHOD 07/26/2025 10:[address] [facility] Swab Both anterior nares / Unknown Non-blood Collection / Unknown 07/26/2025 9:51 PM EDT 07/26/2025 9:[address] [facility] - 07/26/2025 10:50 PM EDT Testing was performed using the Percolate Respiratory Pathogen PCR Assay. All results must [...] that are below the limit of detection. us Tamara Banks MD LAB MICROBIOLOGY - GENERAL ORD ERABLES Final Result Performing Organization Address City/[facility]/ZIP Co de Phone Number [facility] [address] [place] [address], [place] [phone] * Lactate, with reflex (07/26/2025 9:49 PM EDT) LACTIC ACID 1.4 0.4 - 2.0 mmol/L LAB CHEMISTRY METHOD 07/26/2025 10:[address] [facility] Blood Venous blood specimen / Unknown Venipuncture / Unknown 07/26/2025 9:49 PM EDT 07/26/2025 9:59 PM EDT us Tamara Banks MD LAB BLOOD ORDERABLES Final Res ult [facility] [address] [place] [address], [place] [phone] * (ABNORMAL) Procalcitonin (07/26/2025 9:49 PM EDT) [facility] Procalcitonin 0.17(H) <=0.16 ng/mL LAB CHEMISTRY METHOD 07/27/2025 7:[address] [facility] Blood Venous blood specimen / Unknown Venipuncture / Unknown 07/26/2025 9:49 PM EDT 07/26/2025 9:[address] [facility] - 07/27/2025 7:54 AM EDT [...] MD LAB BLOOD ORDERABLES Final Res ult [facility] [address] [place] [address], [place] [phone] * (ABNORMAL) Comprehensive metabolic panel (07/26/2025 9:49 PM EDT) Only the most recent of4 resultswithin the time period is included. Sodium 137 133 - 145 mmol/L LAB CHEMISTRY METHOD 07/26/2025 10:21 PM [facility] Potassium 4.1 3.5 - 5.5 mmol/L LAB CHEMISTRY METHOD 07/26/2025 10:21 PM [facility] Chloride 105 96 - 110 mmol/L LAB CHEMISTRY METHOD 07/26/2025 10:21 PM [facility] CO2 26 21 - 32 mmol/L LAB CHEMISTRY METHOD 07/26/2025 10:21 PM [facility] Anion Gap 6 3 - 11 LAB CHEMISTRY METHOD 07/26/2025 10:21 PM [facility] Glucose 160(H) 70 - 100 mg/dL LAB CHEMISTRY METHOD 07/26/2025 10:21 PM [facility] BUN 9 5 - 25 mg/dL LAB CHEMISTRY METHOD 07/26/2025 10:21 PM [facility] Creatinine 0.70 0.70 - 1.30 mg/dL LAB CHEMISTRY METHOD 07/26/2025 10:21 PM [facility] eGFR 97 >=60 mL/min/1. 73m2 LAB CHEMISTRY METHOD 07/26/2025 10:21 PM [facility] Comment:Calculation based on the Chronic Kidney Disease Epidemiology Collaboration (CKD-EPI) equation refit without adjustment for race. BUN/Creatinine Ratio 12.9 LAB CHEMISTRY METHOD 07/26/2025 10:21 PM [facility] Calcium 8.4(L) 8.5 - 10.5 mg/dL LAB CHEMISTRY METHOD 07/26/2025 10:21 PM [facility] AST (SGOT) 20 10 - 42 unit/L LAB CHEMISTRY METHOD 07/26/2025 10:21 PM [facility] ALT (SGPT) 16 10 - 60 unit/L LAB CHEMISTRY METHOD 07/26/2025 10:21 PM [facility] Alkaline Phosphatase 86 42 - 121 unit/L LAB CHEMISTRY METHOD 07/26/2025 10:[address] [facility] Total Protein 5.9(L) 6.0 - 8.0 g/dL LAB CHEMISTRY METHOD 07/26/2025 10:[address] [facility] Albumin 3.4 3.2 - 5.0 g/dL LAB CHEMISTRY METHOD 07/26/2025 10:[address] [facility] Total Bilirubin 0.6 0.0 - 1.4 mg/dL LAB CHEMISTRY METHOD 07/26/2025 10:[address] [facility] Blood Venous blood specimen / Unknown Venipuncture / Unknown 07/26/2025 9:49 PM EDT 07/26/2025 9:59 PM EDT us Tamara Banks MD LAB BLOOD ORDERABLES Final Res ult [facility] [address] [place] [address], [place] [phone] * XR Chest 1 View (07/26/2025 9:41 [...] Signed Date: 07/27/2025 10:07 ET Workstation ID: [id number] Transcribed By: Self Edit Transcribed Date: 07/27/2025 [...] Signed Date: 07/27/2025 10:07 ET Workstation ID: [id number] Transcribed By: Self Edit Transcribed Date: 07/27/2025 [...] Signed Date: 07/25/2025 09:06 ET Workstation ID: [id number] Transcribed By: Self Edit Transcribed Date: 07/25/2025 [...] likely residua of pneumonia evident on a 06/29/2025omparison chest CT. -------- FINAL REPORT -------- Dictated By: Nikos Alvarenga Dictated Date: 07/25/2025 09:04 ET Assigned Physician: Nikos Alvarenga Reviewed and Electronically Signed By: Nikos Alvarenga Signed Date: 07/25/2025 09:06 ET Workstation ID: [id number] Transcribed By: Self Edit Transcribed Date: 07/25/2025 09:04 ET Juan Manuel Green MD IMG XR PROCEDURES Final Result * (ABNORMAL) RBC morphology review (07/25/2025 8:16 AM EDT) Rbc Morphology Present( A) Consistent with indices, Normal for LAB HEMETOLOGY METHOD 07/25/2025 10:[address] [facility] Platelet Morphology - WAM See Note(A) Normal LAB HEMETOLOGY METHOD 07/25/2025 10:[address] [facility] Comment:PLT: Normal Polychromasia Present Present( A) (none) LAB HEMETOLOGY METHOD 07/25/2025 10:[address] [facility] Ovalocytes Present 5 - 10%(A) (none) LAB HEMETOLOGY METHOD 07/25/2025 10:[address] [facility] Tear Drop Cells Present 5 - 10%(A) (none) LAB HEMETOLOGY METHOD 07/25/2025 10:[address] [facility] Blood Venous blood specimen / Unknown Venipuncture / Unknown 07/25/2025 8:16 AM EDT 07/25/2025 8:42 AM EDT us Juan Manuel Green MD LAB BLOOD ORDERABLES Final Res ult [facility] [address] [place] [address], [place] [phone] * (ABNORMAL) Iron and TIBC (07/25/2025 8:16 AM EDT) Only the most recent of2 resultswithin the time period is included. Iron 32(L) 50 - 160 mcg/dL LAB CHEMISTRY METHOD 07/25/2025 10:[address] [facility] TIBC 204(L) 250 - 450 mcg/dL LAB CHEMISTRY METHOD 07/25/2025 10:[address] [facility] Iron Saturation 16(L) 20 - 50 % LAB CHEMISTRY METHOD 07/25/2025 10:[address] [facility] Blood Venous blood specimen / Unknown Venipuncture / Unknown 07/25/2025 8:16 AM EDT 07/25/2025 8:42 AM EDT us Juan Manuel Green MD LAB BLOOD ORDERABLES Final Res ult [facility] [address] [place] [address], [place] [phone] * Type and screen (07/25/2025 8:16 AM EDT) Only the most recent of2 resultswithin the time period is included. Pathologist [facility] [place] ABO Group A 07/25/2025 10:[address] [facility] Rh Type Positive 07/25/2025 10:[address] [facility] Antibody Screen Negative 07/25/2025 10:[address] [facility] Blood Venous blood specimen / Unknown Venipuncture / Unknown 07/25/2025 8:16 AM EDT 07/25/2025 8:42 AM EDT us Juan Manuel Green MD LAB BLOOD BANK TEST ORDERABLES Final Result Performing Organization Address [facility] Co de Phone Number [facility] [address] [place] [address], [place] [phone] * (ABNORMAL) Folate (07/25/2025 8:16 AM EDT) Pathologist [facility] [place] Folate >20.0(H) 2.8 - 17.0 ng/ml LAB CHEMISTRY METHOD 07/25/2025 9:[address] [facility] Blood Venous blood specimen / Unknown Venipuncture / Unknown 07/25/2025 8:16 AM EDT 07/25/2025 8:42 AM EDT us Juan Manuel Green MD LAB BLOOD ORDERABLES Final Res ult Performing Organization Address City/[facility]/ZIP Co de Phone Number [facility] [address] [place] [address], [place] [phone] * Ferritin (07/25/2025 8:16 AM EDT) Only the most recent of3 resultswithin the time period is included. Pathologist [facility] [place] Ferritin 346 26 - 388 ng/mL LAB CHEMISTRY METHOD 07/25/2025 10:[address] [facility] Blood Venous blood specimen / Unknown Venipuncture / Unknown 07/25/2025 8:16 AM EDT 07/25/2025 8:42 AM EDT us Juan Manuel Green MD LAB BLOOD ORDERABLES Final Res ult Performing Organization Address [facility]/ZIP Co de Phone Number [facility] [address] [place] [address], [place] [phone] * (ABNORMAL) Vitamin B12 (07/25/2025 8:16 AM EDT) [facility] Vitamin B-12 1,146(H) 250 - 900 pcg/mL LAB CHEMISTRY METHOD 07/25/2025 9:[address] [facility] Blood Venous blood specimen / Unknown Venipuncture / Unknown 07/25/2025 8:16 AM EDT 07/25/2025 8:42 AM EDT Juan Manuel Green MD LAB BLOOD ORDERABLES Final Res ult Performing Organization Address [facility] de Phone Number [facility] [address] [place] [address], [place] [phone] * HM Colonoscopy (07/18/2025 1:30 PM EDT) Only the most recent of4 resultswithin the time period is included. Historical [facility] Final Result * External Endoscopy (07/18/2025 1:29 PM EDT) Only the most recent of4 resultswithin the time period is included. Anatomical Region Laterality Modality Endoscopy Historical Provider GI~PROCEDURE ORDERABLES F inal Result * Abdominal Ultrasound (07/18/2025 1:27 PM EDT) Historical Provider IN CLINIC/BEDSIDE ORDERAB LES Final Result * Abdominal Ultrasound (07/18/2025 1:23 PM EDT) Historical Provider IN CLINIC/BEDSIDE ORDERAB LES Final [...] (ABNORMAL) Lactate dehydrogenase (07/03/2025 11:13 AM EDT) Pathologist [facility] [place] LDH 535(H) 120 - 246 unit/L LAB CHEMISTRY METHOD 07/03/2025 12:[address] [facility] Blood Venous blood specimen / Unknown Venipuncture / Unknown 07/03/2025 11:13 AM EDT 07/03/2025 11:23 AM EDT Lor Bal MD LAB BLOOD ORDERABLE S Final Result [facility] [address] [place] [address], * Transfuse RBC (06/30/2025 3:56 PM EDT) Korina SCOTT BLOOD TRANSFUSION ORDERABL ES Final Result * Prepare RBC: 1 Units (06/30/2025 7:34 AM EDT) Product Code [id number] 06/30/2025 1:[address] [facility] Unit Number [id number] 06/30/20 1:[address] [facility] Crossmatch Compatible 06/30/2025 7:[address] [facility] Dispense Status Transfused 06/30/2025 1:[address] [facility] Unit ABO Rh APOS 06/30/2025 1:[address] [facility] Unit Expiration Date Time [id number] 06/30/2025 1:[address] [facility] Unit Blood Type 6200 06/30/2025 1:[address] [facility] Blood Venous blood specimen / Unknown 06/30/2025 7:34 AM EDT 06/29/2025 3:12 AM EDT Korina SCOTT BLOOD BANK PRODUCT ORDERAB LES Final Result [facility] [address] [place] [address], [place] [phone] * ECG-Annotated (06/30/2025) us Provider Onbase ECG ORDERABLES Final Result * CT Chest [...] Signed Date: 06/29/2025 12:45 ET Workstation ID: [id number] Transcribed By: Self Edit Transcribed Date: 06/29/2025 12:34 ET Narrative 06/29/2025 12:45 PM EDT INDICATION: Shortness of breath with left lower lobe infiltrate suspected on portable chest radiograph TECHNIQUE: CT scan of the chest obtained without contrast. Scanner: BiggiFier 128 slice VCT Dose reduction technique: ASIR [...] of the chest obtained without contrast. Scanner: Parcel[employer]ie 128 slice VCT Dose reduction technique: ASIR [...] Signed Date: 06/29/2025 12:45 ET Workstation ID: [id number] Transcribed By: Self Edit Transcribed Date: 06/29/2025 12:34 ET us Korina SCOTT IMG CT PROCEDURES Final Re sult * Thyroid stimulating hormone with reflex to free t4 and free t3 (06/29/2025 8:08 AM EDT) Pathologist [facility] [place] TSH 2.56 0.40 - 4.00 mcIU/mL LAB CHEMISTRY METHOD 06/29/2025 9:[address] [facility] Blood Venous blood specimen / Unknown Venipuncture / Unknown 06/29/2025 8:08 AM EDT 06/29/2025 8:37 AM EDT us Korina SCOTT LAB BLOOD ORDERABLES Final Result [facility] [address] [place] [address], * (ABNORMAL) Vitamin B12 and folate (06/29/2025 8:08 AM EDT) Vitamin B-12 1,064(H) 250 - 900 pcg/mL LAB CHEMISTRY METHOD 06/29/2025 9:[address] [facility] Folate >20.0(H) 2.8 - 17.0 ng/ml LAB CHEMISTRY METHOD 06/29/2025 9:[address] [facility] Blood Venous blood specimen / Unknown Venipuncture / Unknown 06/29/2025 8:08 AM EDT 06/29/2025 8:37 AM EDT us Korina SCOTT LAB BLOOD ORDERABLES Final Result Performing Organization Address City/[facility]/ZIP Co de Phone Number [facility] [address] [place] [address], [place] [phone] * Cortisol (06/29/2025 8:08 AM EDT) Cortisol 21.8 mcg/dL LAB CHEMISTRY METHOD 06/29/2025 9:[address] [facility] Blood Venous blood specimen / Unknown Venipuncture / Unknown 06/29/2025 8:08 AM EDT 06/29/2025 8:[address] [facility] - 06/29/2025 9:56 AM EDT CORTISOL REFERENCE RANGE 8 AM SPEC: 5.0-23.0 mcg/dL 4 PM SPEC: 3.0-16.0 mcg/dL 8 PM SPEC: <5.0 mcg/dL us Korina SCOTT LAB BLOOD ORDERABLES Final Result Performing Organization Address City/[facility]/ZIP Co de Phone Number [facility] [address] [place] [address], [place] [phone] * (ABNORMAL) Hemoglobin and hematocrit (06/29/2025 3:08 AM EDT) Hemoglobin 8.3(L) 13.5 - 17.5 g/dL LAB HEMETOLOGY METHOD 06/29/2025 3:[address] [facility] Hematocrit 26.3(L) 42.0 - 54.0 % LAB HEMETOLOGY METHOD 06/29/2025 3:[address] [facility] Blood Venous blood specimen / Unknown Venipuncture / Unknown 06/29/2025 3:08 AM EDT 06/29/2025 3:12 AM EDT us Varun Lovelace MD LAB BLOOD ORDERABLES Final Result Performing Organization Address [facility]/ZIP Co de Phone Number [facility] [address] [place] [address], [place] [phone] * (ABNORMAL) Reticulocyte count (06/29/2025 3:08 AM EDT) Retic Ct Abs 0.050 0.030 - 0.090 M/mcL LAB HEMETOLOGY METHOD 06/29/2025 3:[address] [facility] Retic Ct Pct 1.7 0.7 - 1.7 % LAB HEMETOLOGY METHOD 06/29/2025 3:[address] [facility] Immature Retic Fract 28.7(H) 2.3 - 15.9 % LAB HEMETOLOGY METHOD 06/29/2025 3:[address] [facility] Reticulocyte Hemoglobin 25.1(L) >29.0 pcg LAB HEMETOLOGY METHOD 06/29/2025 3:[address] [facility] Blood Venous blood specimen / Unknown Venipuncture / Unknown 06/29/2025 3:08 AM EDT 06/29/2025 3:12 AM EDT us Varun Lovelace MD LAB BLOOD ORDERABLES Final Result Performing Organization Address City/[facility]/ZIP Co de Phone Number [facility] [address] [place] [address], [place] [phone] * (ABNORMAL) Urinalysis with reflex microscopic (06/29/2025 12:30 AM EDT) Specific [place] Urine 1.020 1.003 - 1.030 LAB URINALYSIS - AUTOMATED METHOD 06/29/2025 1:[address] [facility] pH, Urine 5.5 5.0 - 8.0 pH LAB URINALYSIS - AUTOMATED METHOD 06/29/2025 1:32 AM [facility] Leukocytes, Urine Small(A) Negative LAB URINALYSIS - AUTOMATED METHOD 06/29/2025 1:32 AM [facility] Nitrite, Urine Negative Negative LAB URINALYSIS - AUTOMATED METHOD 06/29/2025 1:32 AM [facility] Protein, Urine 100(A) <=Trace mg/dL LAB URINALYSIS - AUTOMATED METHOD 06/29/2025 1:32 AM [facility] Glucose, Urine Negative Negative mg/dL LAB URINALYSIS - AUTOMATED METHOD 06/29/2025 1:32 AM [facility] Ketones, Urine Negative Negative mg/dL LAB URINALYSIS - AUTOMATED METHOD 06/29/2025 1:32 AM [facility] Urobilinogen, Urine 1.0 0.2 - 1.0 mg/dL LAB URINALYSIS - AUTOMATED METHOD 06/29/2025 1:32 AM [facility] Bilirubin, Urine Negative Negative LAB URINALYSIS - AUTOMATED METHOD 06/29/2025 1:32 AM [facility] Blood, Urine Negative Negative LAB URINALYSIS - AUTOMATED METHOD 06/29/2025 1:32 AM [facility] RBC, Urine 2.3 0 - 4 /HPF LAB URINALYSIS - AUTOMATED METHOD 06/29/2025 1:32 AM [facility] WBC, Urine 12.5(H) 0 - 4 /HPF LAB URINALYSIS - AUTOMATED METHOD 06/29/2025 1:32 AM [facility] Squamous Epithelial, Urine 29 0 - 60 /LPF LAB URINALYSIS - AUTOMATED METHOD 06/29/2025 1:32 AM [facility] Bacteria, Urine Negative Negative /HPF LAB URINALYSIS - AUTOMATED METHOD 06/29/2025 1:32 AM [facility] Hyaline Casts, Urine 1 0 - 3 /LPF LAB URINALYSIS - AUTOMATED METHOD 06/29/2025 1:[address] [facility] Urine Urine specimen obtained by clean catch procedure / Unknown Non-blood Collection / Unknown 06/29/2025 12:30 AM EDT 06/29/2025 12:44 AM EDT us Marco Antonio Jean MD LAB URINE ORDERABLES Final Resul t Performing Organization Address [facility] de Phone Number [facility] [address] [place] [address], [place] [phone] * Troponin I High Sensitivity (06/28/2025 10:16 PM EDT) [facility] High Sensitivity Troponin I 15 <=79 ng/L LAB CHEMISTRY METHOD 06/28/2025 11:[address] [facility] Blood Venous blood specimen / Unknown Venipuncture / Unknown 06/28/2025 10:16 PM EDT 06/28/2025 10:[address] [facility] - 06/28/2025 11:06 PM EDT High levels of biotin in samples may falsely decrease hsTroponin values. Use caution when interpreting hsTroponin results in patients taking biotin who exhibit renal impairment (eGFR <60) or in patients taking more than 20 mg/day of biotin. us Marco Antonio Jean MD LAB BLOOD ORDERABLES Final Resul t Performing Organization Address [facility] de Phone Number [facility] [address] [place] [address], [place] [phone] * APTT (06/28/2025 10:16 PM EDT) [facility] aPTT 34.2 24.1 - 39.3 sec LAB COAGULATION METHOD 06/28/2025 11:[address] [facility] Blood Venous blood specimen / Unknown Venipuncture / Unknown 06/28/2025 10:16 PM EDT 06/28/2025 10:19 PM EDT us Marco Antonio Jean MD LAB BLOOD ORDERABLES Final Resul t Performing Organization Address City/[facility]/ZIP Co de Phone Number [facility] [address] [place] [address], [place] [phone] * (ABNORMAL) Protime-INR (06/28/2025 10:16 PM EDT) Protime 16.7(H) 10.6 - 13.9 sec LAB COAGULATION METHOD 06/28/2025 11:[address] [facility] INR 1.3 LAB COAGULATION METHOD 06/28/2025 11:[address] [facility] Blood Venous blood specimen / Unknown Venipuncture / Unknown 06/28/2025 10:16 PM EDT 06/28/2025 10:19 PM EDT us Marco Antonio Jean MD LAB BLOOD ORDERABLES Final Resul t Performing Organization Address [facility]/ZIP Co de Phone Number [facility] [address] [place] [address], [place] [phone] * B-Type Natriuretic Peptide (BNP) (06/28/2025 10:16 PM EDT) BNP 22 <=100 pcg/mL LAB CHEMISTRY METHOD 06/28/2025 10:[address] [facility] Blood Venous blood specimen / Unknown Venipuncture / Unknown 06/28/2025 10:16 PM EDT 06/28/2025 10:19 PM EDT us Marco Antonio Jean MD LAB BLOOD ORDERABLES Final Resul t [facility] [address] [place] [address], [place] [phone] * Lipase (06/28/2025 10:16 PM EDT) Lipase 16 13 - 75 unit/L LAB CHEMISTRY METHOD 06/28/2025 10:[address] [facility] Blood Venous blood specimen / Unknown Venipuncture / Unknown 06/28/2025 10:16 PM EDT 06/28/2025 10:19 PM EDT us Marco Antonio Jean MD LAB BLOOD ORDERABLES Final Resul t Performing Organization Address [facility]/ZIP Co de Phone Number [facility] [address] [place] [address], [place] [phone] * Lactate (06/28/2025 10:16 PM EDT) Lactate 1.2 0.4 - 2.0 mmol/L LAB CHEMISTRY METHOD 06/28/2025 11:[address] [facility] Blood Venous blood specimen / Unknown Venipuncture / Unknown 06/28/2025 10:16 PM EDT 06/28/2025 10:18 PM EDT us Marco Antonio Jean MD LAB BLOOD ORDERABLES Final Resul t Performing Organization Address [facility]/ZIP Co de Phone Number [facility] [address] [place] [address], [place] [phone] * CT Cervical Spine wo Contrast (06/28/2025 [...] on 06/28/2025 23:14:24 Marco Antonio Jean MD IM CT PROCEDURES Final Result * CT Head [...] on 06/28/2025 23:21:32 Marco Antonio Jean MD [facility] [place]ED[place] Final Result * ECG 12 lead (06/28/2025 8:54 PM EDT) Ventricular Rate ECG 89 BPM GEMUSE Atrial Rate 89 BPM GEMUSE P-R Interval 152 ms GEMUSE QRS Duration 98 ms GEMUSE Q-T Interval 368 ms GEMUSE QTc 447 ms GEMUSE P Wave [place] -9 degrees GEMUSE R [place] -11 degrees GEMUSE T [place] 33 degrees GEMUSE ECG Interpretation Normal sinus rhythm Normal ECG When compared with ECG of 28-JUN-2025 20:53, (unconfirmed) Nonspecific T wave abnormality no longer evident in Inferior leads Confirmed by JOSE ZAYAS ([id number]) on 06/29/2025 9:51:37 AM GEMUSE 06/28/2025 8:54 PM EDT 06/29/2025 9:51 AM EDT us Nito Narayanan MD ECG ORDERABLES Final Res [...] Signed Date: 06/16/2025 16:09 ET Workstation ID: [id number] Transcribed By: Self Edit Transcribed Date: 06/16/2025 [...] spleen is only partially included in the yvhdg-rl-eepk but appears enlarged. There is moderate edema [...] The spleen is only partially included inthe pquut-zj-ivwq but appears enlarged. There is moderate edema [...] Signed Date: 06/16/2025 16:09 ET Workstation ID: [id number] Transcribed By: Self Edit Transcribed Date: 06/16/2025 15:55 ET Juan Manuel Green MD IM MRI PROCEDURES Final Resul t * MR [...] spleen is only partially included in the hoeaw-yo-lhat but appears enlarged. -------- FINAL REPORT -------- Dictated By: Nikos Alvarenga Dictated Date: 06/16/2025 15:23 ET Assigned Physician: Nikos Alvarenga Reviewed and Electronically Signed By: Nikos Alvarenga Signed Date: 06/16/2025 15:54 ET Workstation ID: [id number] Transcribed By: Self Edit Transcribed Date: 06/16/2025 [...] spleen is only partially included in the stxzk-gg-yopu but appears to be enlarged. There are [...] spleen is only partially included in the vdpay-os-olxv but appears edward enlarged. There are no [...] spleen is only partially included in the utona-ej-uhqk but appearsenlarged. -------- FINAL REPORT -------- Dictated By: Nikos Alvarenga Dictated Date: 06/16/2025 15:23 ET Assigned Physician: Nikos Alvarenga Reviewed and Electronically Signed By: Nikos Alvarenga Signed Date: 06/16/2025 15:54 ET Workstation ID: [id number] Transcribed By: Self Edit Transcribed Date: 06/16/2025 15:29 ET Juan Manuel Green MD IM MRI PROCEDURES Final Resul t * MR [...] Signed Date: 06/16/2025 15:22 ET Workstation ID: [id number] Transcribed By: Self Edit Transcribed Date: 06/16/2025 [...] Signed Date: 06/16/2025 15:22 ET Workstation ID: [id number] Transcribed By: Self Edit Transcribed Date: 06/16/2025 15:00 ET Juan Manuel Green MD IMG MRI PROCEDURES Final Resul t * (ABNORMAL) Hemoglobin A1c (01/20/2025 9:23 AM EDT) Hemoglobin A1C 6.8(H) <6.5 % LAB CHEMISTRY METHOD 01/20/2025 1:[address] [facility] Mean Bld Glu Estim. 148 mg/dL LAB CHEMISTRY METHOD 01/20/2025 1:[address] [facility] Blood Venous blood specimen / Unknown Venipuncture / Unknown 01/20/2025 9:23 AM EDT 01/20/2025 11:40 AM EDT Alla Escobra MD LAB BLOOD ORDERABLES Final Res ult [facility] [address] [place] [address], * Urine Albumin Creatinine Ratio (12/31/2023) Pathologist [facility] Urine Albumin Creatinine Ratio abstracted Historical Provider HEALTH MAINTENANCE Final Result * Lipid panel (12/31/2023) Pathologist [facility] [place] Triglycerides 0 mg/dL Comment:abstracted, no inter pretation Cholesterol 0 mg/dL Comment:abstracted, no inter pretation HDL 0 mg/dL Comment:abstracted, no inter pretation LDL Cholesterol 0 mg/dL Comment:abstracted, no inter pretation Blood Venous blood specimen / Unknown Historical Provider LAB BLOOD ORDERABLES Mercedez l Result from Last 3 Months or Most Recently Relevant to Health Maintenance Additional Health Concerns Active Problems Noted Date Diagnosed Date Autogenerated Problem 09/07/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
--- OUTSIDE RECORDS SUMMARY | 2025-09-12 10:32 | XMS_ITS | Encounter Summary ---
Author Organization [facility] Address [address] [facility] [address] [place] [address] Phone Care Team Providers Care It Systems Analyst Consultant Name Role Phone Mariely Vargas MD Primary Care Provider Lindsay Perales MD Unavailable Richard Eden DO, Justine Unavailable [phone] Maribel Nur MD, MPH Unavailable Kezia Webb MD Unavailable [phone] Lor Bal MD Unavailable [phone] Mynor Coats MD Unavailable Eliseo Rand RN Unavailable Ayaka [email or web address] Grover Barbosa MD Unavailable [phone] Neville Torres MD Unavailable + [phone] Kya Diaz RN Unavailable Naga [email or web address] Yvonne Lewis Unavailable [phone] Brennon Delcid MD, MPH Unavailable + Cathy Schmidt PA-C Unavailable + Reason for Referral * MRI/CAT Scan - Closed Specialty Diagnoses / Procedures Referred By Contvladislav t Referred To Contact Radiology Diagnoses Squamous cell carcinoma, scalp/neck Procedures NM PET CT Scalp to Toes Maribel Nur MD, MPH [address] [place] [address] Phone: tel: fax: mailto:[email or web address] Referral ID Status Reason Start Date Expiration Date Visits Re quested Visits Authorized [id number] Closed 12/15/2024 1 1 Encounter Details Date Type Department Care Team (Late st Contact Info) Description 12/15/2024 Ancillary Orders [facility] [address], 11th [place] [address] Maribel Nur MD, MPH [address] [place] [address] [email or web address] Squamous cell carcinoma, scalp/neck (Primary Dx) Social [...] st Contact Info) Description 06/21/2025 Procedure Pass [facility] Imaging Department, [facility], [place] [address] [facility], [address]1 [place] [address] 07/24/2025 Procedure Pass [facility] Imaging Department, [facility], MRI [address] [facility], [place] [address] [place] [address] 09/13/2025 9:30 AM EST Blood Draw [facility] Imaging Department, [facility], Imaging [id number] [address] [facility], [address] [place] [address] Libertad Ramos DO [address] [place] [address] [email or web address] 09/13/2025 12:30 PM EST Appointment [facility] Imaging Department, [facility], PET/CT [address] [place] [address] Libertad Ramos DO [address] [place] [address] [email or web address] 09/13/2025 1:40 PM EST Appointment [facility] Imaging Department, [facility], [place] [address] [facility], Floor [address]1 [place] [address] Cathy Schmidt PA-C [address] [place] [address] [place] [address] Brennon Delcid MD, MPH [address] [place] [address] [email or web address] 09/13/2025 3:30 PM EST Office Visit [facility], [address], [address]th [place] [address] Brennon Delcid MD, MPH [address] [place] [address] [email or web address] [email or web address] 09/15/2025 8:30 AM EST Office Visit [facility], [address], 11th [place] [address] Maribel Nur MD, MPH [address] [place] [address] [email or web address] 09/19/2025 10:00 AM EST Telemedicine [facility], [address], 5th [place] [address] Libertad Ramos V DO [address] [place] [address] [email or web address] 10/04/2025 1:20 PM EST Office Visit [facility] [address] [place] [address] Alla Escobar MD [address] [place] [address] 3rd [place] [address] 10/26/2025 11:40 AM EST Appointment [facility] Imaging Department, [facility], MRI [address] [place] [address], Floor [address]1 [place] [address] Libertad Ramos V DO [address] [place] [phone] [email or web address] 11/07/2025 10:30 AM EST Blood Draw Laboratory Services, [address], 2nd [place] [address] Darinel Ordaz M.D. Leukemia MD Mike [address] [place], [place] [id number] [place] [address] [email or web address] 11/07/2025 11:30 AM EST Office Visit [facility], Division of Hematologic Oncology, [address], 8th [place] [address] Darinel Ordaz M.D. Leukemia MD Mike [address] [place], [place] [id number] [place] [address] [email or web address] 11/30/2025 11:00 AM EST Office Visit Oral Medicine, [facility] [place] [address] [facility], 11th [place] [address] Hao Robertson, SRAVANTHI, PhD [address] [place] [address] [email or web address] documented as of this encounter Results * [...] 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 ATTESTATION: Varun William, as teaching physician have reviewed the [...] x 0.9 cm left periaortic lymph node () with SUVmax 1.8. 1.5 x 1.0 cm [...] may be related to knownpolycythemia vera. ATTESTATION: Varun William, as teaching physician have reviewedthe images, if any, for this patient's exam, and if necessary, have editedthe report originally created by Etelvina Ruvalcaba. Maribel Nur MD, MPH [facility] Final Result documented in this encounter Visit Diagnoses Diagnosis Squamous cell carcinoma, scalp/neck- Primary Other malignant neoplasm of scalp and skin of neck Squamous cell carcinoma, scalp/neck Other malignant neoplasm of scalp and skin of neck documented in this encounter Care Teams It Systems Analyst Consultant Relationship Specialty Start Date End Date Mariely Vargas MD [address] [address] PCP - General Internal Medicine 03/29/24 Lindsay Perales MD [address] [place] [phone] [email or web address] Radiation Oncology 07/12/24 Libertad Ramos DO [address] [place] [address] [email or web address] Medical Oncology 12/22/24 Maribel Nur MD, MPH [address] [place] [phone] [email or web address] Otolaryngology 12/22/24 Kezia Webb MD [address] [place] [address] [email or web address] Dermatology 12/22/24 Lor Bal MD [address] [place] [phone] Wendy [email or web address] Internal Medicine 12/22/24 Mynor Coats MD [address] [place] [address] Dermatology 01/02/25 Eliseo Rand RN [address] [place] [address] Zoe@[email or web address] Associate Infusion Nurse 01/02/25 Grover Barbosa MD [address] [place] [address] [place] [address] Manager Of Finance Pulmonary Disease 01/05/25 Neville Torres MD [address] [address] [email or web address] Urology 01/27/25 Kya Diaz, PHILIPPE [address] [address] [email or web address] Associate Infusion Nurse 01/23/25 Yvonne Lewis [address] [place] [address] [email or web address] Air Filler 04/13/25 Brennon Delcid MD, MPH [address] [place] [address], [facility]- [address] [address] [email or web address] Radiation Oncology 06/02/25 Cathy Schmidt PA-C [address] [place] [address] [place] [address] [email or web address] Physician Mathematics Faculty Member 06/14/25 documented as of this encounter Additional Source Comments The information contained in this document represents components of the legal health record. It is not the complete legal health record.[facility]
== END 2025-09-12 09:27 | disposition home or self-care (01) ==
LOC: HO.CT 09:26
PROVIDERS: PCP Hospitalist; Visit Provider Hospitalist
DX: R91.1 Solitary pulmonary nodule (principal); J18.9 Pneumonia, unspecified organism; C44.229 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 and external auricular canal
CPT/HCPCS: 71250

== ENCOUNTER → 2025-09-12 09:28 | Outpatient (BNV) | payer MEDICARE, SELFPAY | PROVIDERS: PCP Hospitalist; Visit Provider Radiology Diagnostic Radiology | DX: J18.9 Pneumonia, unspecified organism (principal); R59.0 Localized enlarged lymph nodes | CPT/HCPCS: 71250 ==

== ENCOUNTER 2025-09-20 09:32 | Outpatient (AMB) | payer MEDICARE, SELFPAY ==
--- OUTSIDE RECORDS SUMMARY | 2025-02-21 06:15 | XMS_ITS ---
Author Organization [facility] Address [address] [address] Care Team Providers Care Life Skills Coach Name Role Phone TROY LOBO Primary Care Provider Elsa Talamantes [phone] REASON FOR VISIT Milvia D/C 02/05/25 Encounters Encounter Location Date Provider Diagnosis [facility] [address] [address] 02/21/2025 Elsa Talamantes Plan Of Treatment Next Appt Details Provider Name:TROY LOBO , 03/05/2026 10:30:00 AM, [address] [address], [place], [address], Progress Notes * Clay JOHNSONDOB:1950 ([age] yo M)Acc No.[id number]:02/21/2025 Patient: Clay STANTON Appointment Provider: Jake Talamantes :1950 A ge:74 Y S ex:Male Date:02/21/2025 Address:[address] [place] [address] Pcp:TROY LOBO Subjective: * Chief Complaints: * 1 . [facility] D/C 02/05/25. * Medical History: Objective: * Vitals: Assessment: Plan: * Treatment: * Images: * Electronic signature of Honorio Talamantes PA-C on 09/20/2025 at 10:41 AM EST Sign off status: Pending * Appointment Provider: Jake Talamantes Date: 0 02/21/2025 Generated for Annie navas/Casandra/Ronda on: 1 11/20/2024 10:41 AM EST
--- OUTSIDE RECORDS SUMMARY | 2025-09-19 10:00 | XMS_ITS | Encounter Summary ---
Author Organization [facility] Address [address] [facility] [address] [place] [address] Phone Care Team Providers Care Chart Changer Name Role Phone Mariely Vargas MD Primary Care Provider Lindsay Perales MD Unavailable Richard Eden DO, Justine Unavailable [phone] Maribel Nur MD, MPH Unavailable Kezia Webb MD Unavailable [phone] Lro Bal MD Unavailable [phone] Mynor Coats MD Unavailable Eliseo Rand RN Unavailable Ayaka [email or web address] Grover Barbosa MD Unavailable Neville Torres MD Unavailable + [phone] Kya Diaz RN Unavailable Naga [email or web address] Yvonne Lewis Unavailable [phone] Brennon Delcid MD, MPH Unavailable + Cathy Schmidt PA-C Unavailable + Reason for Referral * MRI/CAT Scan - Authorized Specialty Diagnoses / Procedures Referred By Contac t Referred To Contact Radiology Diagnoses Squamous cell carcinoma of skin Procedures NM PET CT Scalp to Toes Libertad Ramos DO [address] [place] [address] Phone: tel: fax: mailto:[email or web address] Referral ID Status Reason Start Date Expiration Date V isits Requested Visits Authorized [id number] Authorized 09/19/2025 1 1 Encounter Details Date Type Department Care Team (Late st Contact Info) Description 09/19/2025 10:00 AM EST Telemedicine [facility], [facility] [address], 5th [place] [address] Libertad Ramos DO [address] [place] [address] [email or web address] Squamous cell carcinoma of skin (Primary Dx); Acquired hypothyroidism Social History Tobacco Use Types Packs/Day Years [...] PM EDT documented as of this encounter Miscellaneous Notes * Assessment & Plan Note - Libertad Ramos DO - 09/19/2025 10:32 AM EST Associated Problem(s): Squamous cell carcinoma of skin Clay Barron is a 74 y.o. 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 His history is significant for polycythemia vera and he has been maintained on hydroxyurea for many years by Juan Manuel Chavarria. 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 I also reviewed that this may have happened, in part, from the immunosuppressive nature of hydroxyurea and recommended stopping it. He proceeded with neoadjuvant cemiplimab x 4 cycles. He had thefirst two cycles with me at [facility] and the 3rd and 4th cycles locally with Dr. Chavarria and Dr. Green. Hedescribes that the lesions in his neck had [...] recurrent pneumonia. Treated with antibiotics, nystatin, fluconazole. He is also being followed by oralmedicine. His scans show no evidence of disease. Cutaneous squamous cell carcinoma, locally advanced S/p 4 cycles of neoadjuvant cemiplimab and surgery with 3/34 nodes involved - Finished adjuvant radiation 06/14/2025 - Omid converted to 0 - checking every 3 months - PET-CT 3 months after finishing radiation showed no evidence of disease. - One more PET-CT in 3 months and Omid and then every 6 months after that if clear - Referred to lymphedema therapy PV and potentially CLL - Diagnosed by Hansel Green - followed by Dr. Green and Dr. Chavarria - Trial hydroxyuria Herniated disc L4-L5, better - Ongoing PT - Saw spinal surgery - Tapered off oxycodone and oxycodone Mucositis and burning mouth, unclear etiology-- slow improving - Magic mouthwash PRN, biotin mouthwash - Followed by oral medicine - Finished Nystatin and fuconazole for thrush - Can trial tylenol, gabapentin (has tried this for his leg a long time ago) - Stopped oxy Pneumonia, admission 06/28-06/30, resolved - treated with prolonged course of antibiotics - Readmitted 07/26-07/28 - treated with repeat course of antibiotics documented in this encounter Plan of Treatment Upcoming Encounters Date Type Department Care Team (Late st Contact Info) Description 07/24/2025 Procedure Pass [facility] Imaging Department, [facility], MRI [address] [facility], Floor [address]1 [place] [address] 10/04/2025 1:20 PM EST Office Visit [facility] [address] [place] [address] Alla Escobar MD [address] [place] [address] 3rd [place] [address] 10/12/2025 2:30 PM EST Office Visit [facility], [address], 5th [place] [address] Sasha Strickland PA-C [address] [place] [address] Neisha [email or web address] Libertad Ramos DO [address] [place] [address] [email or web address] 10/12/2025 3:30 PM EST Office Visit [facility], [address], 5th [place] [address] Libertad Ramos DO [address] [place] [address] [email or web address] 10/26/2025 11:40 AM EST Appointment [facility] Imaging Department, [facility], MRI [address] [facility], Floor [address]1 [place] [address] Libertad Ramos DO [address] [place] [address] [email or web address] 11/07/2025 10:30 AM EST Blood Draw Laboratory Services, [facility] [address] [facility], 2nd [place] [address] Darinel Ordaz M.D. Leukemia MD Mike [address] [place] [address] [email or web address] 11/07/2025 11:30 AM EST Office Visit [facility] for Le[facility]emia, Division of Hematologic Oncology, [address], 8th [place] [address] Darinel Ordaz M.D. Leukemia MD Mike [address] [place], [place] [address] [place] [phone] [email or web address]@[facility] 11/30/2025 11:00 AM EST Office Visit Oral Medicine, [address], [address]th [place] [address] Hao Robertson DMD, PhD [address] [place] [address] [email or web address] 12/15/2025 11:00 AM EST Office Visit [facility], [address], [address] [place] [address] Maribel Nur MD, MPH [address] [place] [address] [email or web address] 12/15/2025 12:00 PM EST Blood Draw [facility] Imaging Department, [facility], Imaging [id number] [address] [facility], Floor [address]1 [place] [address] Libertad Ramos V DO [address] [place] [address] [email or web address] 12/15/2025 1:30 PM EST Appointment [facility] Imaging Department, [facility], PET/CT [address] [place] [address] Libertad Ramos V, [address] [place] [address] [email or web address] 12/21/2025 1:00 PM EST Office Visit [facility], [address], 5th [place] [address] Libertad Ramos V DO [address] [place] [address] [email or web address] 03/13/2026 1:00 PM EDT Office Visit [facility], [address], 11th [place] [address] Cathy Schmidt PA-C [address] [place], [place] [address]am [place] [address] Maribel Nur MD, MPH [address] [place] [phone] [email or web address] Scheduled Orders Name Type Priority Associated Diagnoses Orde r Schedule NM PET CT Scalp to Toes Imaging Routine Squamous cell carcinoma of skin Expected: 09/19/2025, Expires: 12/20/2025 Comprehensive Metabolic Panel (CMP) Lab Routine Squamous cell carcinoma of skin Expected: 09/19/2025, Expires: 09/19/2026 CBC and Differential Lab Routine Squamous cell carcinoma of skin Expected: 09/19/2025, Expires: 09/19/2026 Lactate Dehydrogenase (LDH) Lab Routine Squamous cell carcinoma of skin Expected: 09/19/2025, Expires: 09/19/2026 Thyroid Stimulating Hormone (TSH) Lab Routine Acquired hypothyroidism Expected: 09/19/2025, Expires: 09/19/2026 T4, Free Lab Routine Acquired hypothyroidism Expected: 09/19/2025, Expires: 09/19/2026 Omid Signatera Follow-up (Non-MGB) Lab Routine Squamous cell carcinoma of skin Expected: 09/19/2025, Expires: 09/19/2026 documented as of this encounter Visit Diagnoses Diagnosis Squamous cell carcinoma of skin- Primary Other malignant neoplasm of skin, site unspecified Acquired hypothyroidism Unspecified hypothyroidism documented in this encounter Care Teams Chart Changer Relationship Specialty Start Date End Date Mariely Vargas MD [address] [place] [address] PCP - General Internal Medicine 03/29/24 Lindsay Perales MD [address] [place] [phone] [email or web address] Radiation Oncology 07/12/24 Libertad Ramos DO [address] [place] [address] [email or web address] Medical Oncology 12/22/24 Maribel Nur MD, MPH [address] [place] [address] [email or web address] Otolaryngology 12/22/24 Kezia Webb MD [facility] [address] [address] [email or web address] Dermatology 12/22/24 Lor Bal MD [address] [place] [phone] Wendy [email or web address] Internal Medicine 12/22/24 Mynor Coats MD [address] [address] Dermatology 01/02/25 Eliseo Rand RN 450 [place] [address] [email or web address] Associate Infusion Nurse 01/02/25 Grover Barbosa MD [address] [place] [address] [place] [address] Pantograph Watcher Pulmonary Disease 01/05/25 Neville Torres MD [address] [place] [address] Urology 01/27/25 Kya Diaz, PHILIPPE [address] [address] [email or web address] Associate Infusion Nurse 01/23/25 Yvonne Lewis [address] [place] [phone] [email or web address] Environmental Studies Faculty Member 04/13/25 Brennon Delcid MD, MPH [address] [place] [address], ASB1- [address] [place] [address] [email or web address] Radiation Oncology 06/02/25 Cathy Schmidt PA-C [address] [place] [address] [place] [address] [email or web address] Physician Fuel Attendant 06/14/25 documented as of this encounter Additional Source Comments The information contained in this document represents components of the legal health record. It is not the complete legal health record.[facility]
[2025-09-20 09:35] VITALS: BP 110/46; PULSE 68; O2SAT 97; BMI 24.2
--- NOTE | 2025-09-20 09:35 | MHC.OFFVIS ---
Vital Signs 09/20/25 09:35 Height 5 ft 10 in Weight 168 lb 10.458 oz BMI 24.2 BP 110/46 L Blood Pressure Location Lt brachial Position Sitting Pulse 68 Pulse Source Pulse Oximeter Pulse Oximetry (%) 97 Oxygen Delivery Method Room Air Intake Visit Reasons: Pulmonary Nodules Rn Research Required: No Accompanied by: Self / Same As Patient Allergies doxycycline Allergy (Severe, Verified 09/20/25 09:39) nausea and vomiting Cipro Allergy (Severe, Uncoded 01/03/25 09:55) Diarrhea Penicillin Allergy (Severe, Uncoded 01/03/25 09:55) Rash HPI Comments Details: The patient is a 74-year-old gentleman known CHICO, chronic rhinitis in the in addition to pulmonary nodules. In regards of is CPAP the CPAP therapy has been affecting beneficial. However, he doesn't seem to be able to tolerated the whole night. We did request a download showing that he has apnea is improved dramatically with an AHI of less than 1. His average pressure is around 6 to 9. The therapy has been affecting beneficial. At this point will try to minimize the pressures to minimize difficulties tolerating it the whole night. I also think that he needs a new mask. I did recommend the dreamwear fullface mask. In regards to the pulmonary nodules he is last CT scan of the chest was done at [facility] back in February 2019 demonstrating stable pulmonary nodules and interstitial changes when compared to 2016. He has been having issues with nasal congestion. He stop the Astelin nasal spray. He is continue the ipratropium. At this point he has nasal congestion is worse. 05/15/2020. The patient is here for pulmonary follow-up visit. Overall the patient is doing okay. He was having issues with fatigue and was noted to have some anemia. For the anemia workup included a CT scan of the chest. This time had at [facility] where again diff on the right lower lobe nodular density and also some lymphadenopathy. He is scheduled to undergo a repeat CT scan next week. In the office we did look at the CT scan from February 2019 from [facility] demonstrating similar findings with the parenchymal density, but, will see if there is any changes in the lymphadenopathy appreciated on the recent CT scan. In regards to his obstructive sleep apnea he still struggling with the CPAP. He tries to use it but then takes it off after 1-2 hours. We did switch his APAP to a CPAP pressure of 7 cm and a ramp before. Hopefully, he can tolerate that pressure knowing that a average pressure 6.5 decrease his AHI to 0.9 which is very reassuring. If he cannot tolerate that pressure he can decrease the pressure to 6 or call me and I can decrease the pressure for him. I did provide him with a different mask N30i that he can try as well and see if improves his overall tolerance of the PAP therapy. He also mentions that he had of bloody nose. He was evaluated by ENT. He did have increased vascularity and dryness. Hopefully now in the summertime should be doing okay. Will monitor closely may need of additional humidification or lubrication of the nasal passages for the winter months. He has been evaluated further by the oncologist and did undergo a repeat CT scan of the chest sometime in March 2020 demonstrating still the persistent abnormal finding in the right lower lobe. Has not appear to have changed. In addition to that on examination he continues to have this persistent 3/6 holosystolic murmur radiating to the apex suggestive of a mitral regurgitation murmur. He will be following up with primary care doctor soon, therefore, our request an echocardiogram for them to have available to review and can also reviewed myself as well. 11/15/2020 the patient is here for pulmonary follow-up visit. Overall he is doing very well. He lost significant amount of weight. Partly is because he may need lifestyle changes and will has been exercising more. He also has lost some appetite. He has had imaging studies of his chest, last September 2020 demonstrating interval decrease in the nodular density of his lungs which is very reassuring consistent with the findings that he has had a previous CAT scans from [facility]. His main complaint is that he is having significant nasal congestion. He had also some issues with epistaxis. He has been using the fluticasone with no significant improvement. He has used the attributed nasal spray in the past and also the Astelin but no longer. The patient has not had any allergy testing either. He continues uses CPAP. The CPAP therapy continues to be affecting beneficial. Although the nasal congestion does bother him. He does uses CPAP for more than 4 hours a night. At this point will treat his nasal therapies with ipratropium and also the Astelin can stop the fluticasone. He should be able rinses nose prior to putting on CPAP. Will send him for blood work for further allergy testing. 05/21/2021 the patient is here for a pulmonary follow-up visit. He continues to do very well. Although he continues to lose weight. He states that he has not changed his eating habits and he good appetite. He has been more active walking the golf course more regularly about 5 times a week now he is retired. He has had a workup from his primary care provider oncologist. Currently we did review his CT scan of the chest from [facility] that he had back in 2019 and did demonstrate a benign looking area in the esophagus. This point he is scheduled to undergo an endoscopy which will be helpful to further address that issue. In the meantime will follow his pulmonary nodules. They stable in the past with the weight loss I will request repeat scan this time. In addition to that he will be following up with endocrinology soon. He does describe in addition to weight loss loss and strength. From a nasal congestion standpoint used to using it 3 nasal sprays. Did do help although he prefers not to taking. I did recommend that if he has episodes of worsening nasal congestion he can also try Sudafed. In the meantime he continues uses CPAP. The CPAP therapy continues to be affecting beneficial. He is tolerating it well. He is wondering with weight loss if he still needs it. My recommendation is that if he is tolerating CPAP he to use continue using it. Hold off on sleep study at this time. Will have the patient return in the fall after her CT scan of the chest. 03/26/2023 the patient is here for pulmonary follow-up visit. The patient had a tough winter. He had a respiratory illness briefly that resulted in significant shortness of breath and cough. He did call the office and we did recommend he go to the his primary care since we did not have any availability. The patient currently is doing better. His main complaint always that he has significant nasal congestion and postnasal drip. Moderate to severe. For the most part thin liquid secretions. He did try the petroleum nasal spray with only partial resolution. The patient states that he has been using CPAP at nighttime. Although sometimes difficult for him to tolerated. We did download the machine on he does use it every night but seems to take it off in the middle the night. He does not understand or remember why. Most likely is because the pressure is going up. We did download the machine and appears that his AHI is well below 1 and his average pressure is around 6-7 cm water. Patient likely takes it off when he goes higher than that. In addition to this seems like his current CPAP is not working properly. HIs CPAP is older than 8 years. Will request for placement resmed machine at this time the patient will bring in his new machine when he comes into the next visit. 07/29/2023 the patient is here for pulmonary follow-up visit. Overall the patient has been doing well from a respiratory status. Although he says that he typically has a hard time breathing in the winter time. He has had that difficulty breathing for the last 2 years. This time will reassess him during the winter months. However he still struggling with CPAP mask. The mask is leaking out air into his and then last waking her up. Also the elevated pressures are bothering him he has to reset the machine. Otherwise CPAP therapy has been affecting beneficial. He does use an N20 mask. I do see with the escape air is coming out of the from the mask. I did provide him with an N30 I mask that allows on last the [place] of the air so hopefully his 1 be affected by a. He tolerated the mask well in the office. He stated I small mask very well. The pressures were adjusted as well from CPAP of 7 to a CPAP APAP 4-6. His AHI was down to 0. He as far as his chest x-ray back in March it was our read as no acute disease. Therefore no edema imaging is warranted. His breathing is okay right now. Will have him come back in the winter time with pulmonary function studies. 11/25/2023 the patient is here for a pulmonary follow-up visit. The patient has had a hard time since the fall. He developed COVID-19 and subsequently after that developed a worsening cough and shortness of breath. It was hard for him to go 1 flight of stairs. The patient still struggles with that. Because of the cough was so persistent he was not able to uses CPAP regularly. Therefore, he was not been using it. Did get a letter from custodial that he had to use it otherwise will going to take it away. He did bring the machine in and we did download the data. The last 30 days he used it about 90% of the time in is average uses definitely more than 4 hours. His AHI is down to 0.3 and therefore the therapy has been affecting beneficial. I did call [employer] to make sure that the machine does not get taking away. In the meantime he did undergo pulmonary function studies. He appears to have restrictive ventilatory defect with a moderate diffusion impairment. This may have been the result of his underlying COVID infection back in the fall. Still the patient also has pulmonary nodules and has had some weight loss. Therefore to address the pulmonary nodules the restrictive lung disease and the weight loss will request a CT scan of the chest at this time. The patient is also concerned because his brother recently was diagnosed with stage IV lung cancer. 04/20/2024 the patient is here for a pulmonary follow-up visit. 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 It is very painful and swollen. He did have a biopsy. The patient has not been able to use his CPAP because of the cancer in his year and now is going to surgery. I did reach out to [facility] to explain to them that in view of the ear cancer and not able to wear the head gear will going to have to hold the PAP therapy at this time. He does have significant sleep apnea and he is struggling with daytime drowsiness now that he has not using it. His Jolon score is elevated 11/24. Therefore he definitely needs to use the CPAP right now with his ear cancer and swelling around it in be impossible for him to wear the head gear. Does no other mask head gear that he can wear based on the location of the cancer. The patient also had a CT scan of the chest as a follow-up for his CT scan back in 12/29/2023 where showed a 7 mm pulmonary nodule in the right lower lobe that was increasing in size. He did have a recent CT scan we did review it although has not been officially read yet. It appears that the right lower lobe pulmonary nodule has increased further and size now measuring little bit more than 8 mm in size. Will wait for the final read but if the reading is consistent with the increase into 8 mm in size then we will request a PET scan to further address the possibility of hypermetabolic lesion and cancer. The patient will undergo surgery for his ear and skin cancer in the coming weeks. And then he will also need Plastic surgery. He has a lot going on as his brother recently also from stage IV renal cell carcinoma. After the final report of the CT scan call him and let him know either we are going to do a PET scan measuring 8 mm in size or larger or if it appears to be stable to the radiologist points review then will repeat the CT scan in 3 months. 07/26/2024 the patient is here for pulmonary follow-up visit. Since we last spoke he did have his surgery for his squamous cell carcinoma of the skin of the left ear. Ultimately had to undergo plastic surgery. It was a complex surgery lasting about 5 hours. They had a graft taken from his left thigh. The area still healing. His ear canals pretty close after the surgery. He did go to [place] to see if he need radiation but due to the fact that the recurrence rate would only be about 6-8% it was decided to hold off therapy. The patient has been doing well otherwise. He had a CT scan of the chest back in 04/28/2024. It. That the pulmonary nodule had not changed still 7 mm in size. Therefore we held on any additional testing at that point. More recently in May the patient did have a CT scan of the chest at [facility]. Based on the history the cancer and the size of the nodule which is intermediate in size he should get a CT scan 6 months from his last 1. Therefore will plan to do that at [facility] to try to maintain the CT scans closer to his oncologist. He was also on happy with the fact that it took so long for the CT scan to be read in the 1st place. The patient has not been able to use his CPAP because of his ear surgery. Therefore he is waking up tired. His Jolon score is elevated 11/24. We did talk about alternatives to CPAP such as a mandibular advancement device. He will talk to his dentist regarding that. In meantime will try positional therapy. But, right now CPAP is not recommended based on his surgery. 01/03/2025 the patient is here for a pulmonary follow-up visit. 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 He is going to start immune therapy and subsequently after that will have surgery in [place]. He was told that this is potentially curative so he is reassured. In the meantime the found other little spots with squamous cell carcinoma and he will need to have surgery for those skin cancers as well. From a CPAP standpoint he has some difficulties tolerating the mask because of the CT skin cancer of his ear. Will did provide him with an AirTouch N30i mask medium that felt well and did not touch his ear. I am hoping that he tolerates this better. He is also complaining of a dry persistent cough. Moderate severity. He does have a postnasal drip consistent with upper airway cough syndrome. He has been using fluticasone and also ipratropium nasal spray. Can increase the ipratropium nasal spray for now. He is also having some wheezing which may be worsening due to the new therapy so therefore give him an inhaler. He can also use some codeine cough syrup that will help him with the cough and also provide some relief. 06/28/2025 the patient is here for a pulmonary follow-up visit. He is status post his immune therapy and also surgery for his head and neck cancer. Unfortunately he did have some positive lymph nodes. Therefore, he did receive radiation therapy. He has now completed that. Still having difficulty swallowing. In the meantime he is also feeling some difficulty with back pain and a lumbar disc disease. Currently using walker. Breathing lopez he seems to be doing okay although he has a congested cough. [id number] severity. Likely related to component of sinusitis. In addition to that he has been using his CPAP. He has been using nasal cradle. Although he is taking significant amount of air to his mouth. He does open his mouth significantly at nighttime. He is a mouth breather. Therefore, he has a fullface mask. I did have an F20 large air Touch foam mask. He did try he tolerated it well. Hopefully does better with this mask. He will continue with current respiratory therapy and he will start using the fullface mask. For follow-up in the springtime once he gets his PET scan he will get a some copies of the results in order to make sure get the results. 08/24/2025 the patient is here for hospital follow-up visit. Apparently back in June and July he has significant adverse effects from the radiation therapy for his cancer. He has significant mucositis and not able to eat. He lost significant weight. He started developing cough and was admitted to the hospital at [facility] with pneumonia. He did have a CT scan of the chest. Will wait for those results. He was treated and released. He has been able to eat better and he has gained some weight. He still has a cough. Yellowish phlegm. Moderate severity. The mucus is loose. He did go to [facility] and he did have a chest x-ray. I do have the report was done early August demonstrating a left lower lobe airspace disease suggesting pneumonia. He completed a course of azithromycin and cephalosporin. He feels about the same. Today his will pressures the little on the low side. He is trying to take by mouth. His mouth sores hard for improved after using his Wendi and also dexamethasone rinses. He was also using magic mouthwash. Will try to get a sputum culture today. Will also review the CAT scan from [facility] that he had back in June and July. She probably need a repeat CAT scan in view of the persistent airspace disease. 09/20/2025 the patient is here for pulmonary follow-up visit. Overall he is doing well. He completed the Bactrim. His sputum culture was just positive for respiratory bandar. The patient did have a repeat CT scan of the chest which I personally reviewed. Appears to have some residual haziness in the left base suggesting the recovery from the pneumonia and some bit of scarring from the significant size of the pneumonia. Seems to be overall a positive finding. He has also areas of scarring in the lungs which appeared to be stable from before. The patient did have a PET scan as well at [facility] and was reassuring that he does not have any evidence of any active disease anywhere in his very excited about that. He is still struggling with his mouth. He is on dexamethasone and also nystatin mouthwash. Will go ahead and prescribe him the magic mouthwash so he can get some numbing effect from the burning sensation. The patient also been struggling with the CPAP. He did not get the chinstrap. I do believe that he needs more of a lymphedema neck compression device will serve as a chinstrap and also help him with the swelling. He will talk to his surgeon about that before contemplating that. Otherwise I did request a chinstrap from his [employer], [employer]. Also request a heated tubing for his CPAP so we can get more humidification help him with his mouth issues. The patient otherwise is doing okay he will continue with the current therapy. He has a follow-up in March which she will keep. He will have a repeat PET scan in 3 months to follow-up with his cancer. If any issues arise she can always call for an earlier assessment. [facility] Medical History (Updated 09/20/25 @ 18:26 by Grover Barbosa MD) Squamous cell skin cancer, earlobe Chronic restrictive lung disease Chronic cough Weight loss Splenomegaly Polycythemia Pulmonary nodule CHICO on CPAP Chronic allergic rhinitis Social History Patient Tobacco Use Status: Never used Tobacco Review of Systems Const Reports daytime sleepiness, Reports difficulty sleeping, Denies night sweats and Reports weight loss ENT Reports as per HPI, Denies change in voice, Reports dysphagia, Denies lip swelling, Reports mouth pain, Reports nasal congestion, Reports nasal discharge, Reports neck pain, Reports odynophagia, Reports post nasal drip and Denies tongue swelling Card Denies chest pain and Reports dyspnea on exertion Resp Reports cough and Reports dyspnea on exertion GI Denies abdominal pain, Reports dysphagia and Reports odynophagia Musc Denies no additional complaints, Reports abnormal gait, Reports back pain, Reports neck pain, Reports radiating pain into limb and Reports tingling Skin/Breast Reports lesions Neuro Denies Neuro-related abnormal movements, Reports abnormal gait, Reports tingling and Reports paresthesias Psych Denies no additional complaints Asa/Lymph Denies easy bleeding and Denies lymphadenopathy Aller/Immun Denies lip swelling and Denies tongue swelling Physical Exam Vital Signs: Last Vital Signs Pulse 68 09/20/25 09:35 BP 110/46 L 09/20/25 09:35 Pulse Ox 97 09/20/25 09:35 Oxygen Delivery Method Room Air 09/20/25 09:35 BMI result Body Mass Index 24.2 Const General: alert HEENT Ears: external ear abnormal auricular tenderness, pain with movement of external ear and other and other (post op changes on the left side) Eyes Pupils: Equal, round and reactive pupils present Neck Neck: Yes submandibular swelling Chest Chest palpation & inspection: normal inspection of the chest Resp Effort & Inspection: normal respiratory effort Auscultation: no wheezes and diminished lung sounds Cardio Rate: regular rate Rhythm: regular rhythm Heart sounds: S1 normal heart sound present and S2 normal heart sound present GI Palpation (GI): Soft to palpation and nontender Auscultation: normal bowel sounds Skin General skin exam: rashes and/or lesions noted Neuro Cranial nerves: Yes Equal, round and reactive pupils present Assessment & Plan Assessment & Plan (1) Chronic restrictive lung disease: Code(s): J98.4 - Other disorders of lung Category: Medical (2) Pulmonary nodule: Code(s): R91.1 - Solitary pulmonary nodule Category: Medical (3) CHICO on CPAP: Code(s): G47.33 - Obstructive sleep apnea (adult) (pediatric); Z99.89 - Dependence on other enabling machines and devices Category: Medical (4) Chronic allergic rhinitis: Code(s): J30.9 - Allergic rhinitis, unspecified Category: Medical (5) Chronic cough: Code(s): R05.3 - Chronic cough Category: Medical (6) Squamous cell skin cancer, earlobe: Comment: with local spread to the parotid gland and adjacent LNs Code(s): C44.221 - Squamous cell carcinoma of skin of unspecified ear and external auricular canal Category: Medical Qualifiers: Laterality: left Qualified Code(s): C44.229 - 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 and external auricular canal (7) Pneumonia: Comment: resolved Code(s): J18.9 - Pneumonia, unspecified organism Category: Medical Qualifiers: Laterality: left Lung location: lower lobe of lung Pneumonia type: due to unspecified organism Qualified Code(s): J18.9 - Pneumonia, unspecified organism Plan APAP 4-6. needs Chin strap or head and neck lymphedema compression, increase humidity 3->5 and +ERS Continue nasal fluticasone nasal spray, ipratropium nasal spray cough medicine JEAN as needed pseudophed as needed for nasal congestion F/U 4-6 months Medications: New Magic Mouthwash Diphen/Lido/Antacid 1:1:1 Lidocaine Viscous 2 % 80mL; diphenhydramine 12.5 mg/5 mL 80mL; aluminum-mag hydrox-simeth [id number]/5mL 80mL 10 mL PO QID PRN 240 mL 6RF mouth pain 14 days Coding Level of Care Code Est Pt Level 4 (46857) Complex EM visit Add On G2211 Diagnoses Chronic restrictive lung disease J98.4 Pulmonary nodule R91.1 CHICO on CPAP G47.33; Z99.89 Chronic allergic rhinitis J30.9 Chronic cough R05.3 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lobe C44.229 Laterality: left Pneumonia of left lower lobe due to infectious organism J18.9 Laterality: left Lung location: lower lobe of lung Pneumonia type: due to unspecified organism Time Spent (min) 18
--- OUTSIDE RECORDS SUMMARY | 2025-09-20 10:37 | XMS_ITS | Encounter Summary ---
Author Organization [facility] Address [address] [place] [address] Care Team Providers Care 911 Telecommunicator Name Role Phone Mariely Vargas MD Primary Care Provider [phone] Encounter Details Date Type Department Care Team (Late st Contact Info) Description 02/17/2025 Lab Requisition [facility] - Main Lab [address] [place] [id number] Neville Torres MD [address] [facility] [address] [place] [address] Dysuria Social History Tobacco Use Types Packs/Day [...] Info) Description 09/21/2025 12:00 PM EST Appointment [facility] Endoscopy [address] [place] [phone] Faraz Adams MD [address] [address] Bereket Borrego CRNA Need Address Info Felicia Rodriguez MD [address] [place] [address] 12/05/2025 10:00 AM EST Office Visit [facility] Hematology Oncology [address] [place] [phone] Lor Bal MD [address] [place] [phone] documented as of this encounter Procedures Procedure Name Priority Date/Time Associated Diagnosis Comments CULTURE URINE Routine 02/17/2025 8:51 AM EDT Dysuria documented in this encounter Results * (ABNORMAL) Culture urine (02/17/2025 8:51 AM EDT) Culture, Urine >100,000 CFU/mL Klebsiella pneumoniae(A) 02/21/2025 9:56 AM EDT [facility] Comment: This is an edited [...] MICROBIOLOGY - G ENERAL ORDERABLES Final Result [facility] [address] [place] [address], documented in this encounter Visit Diagnoses Diagnosis Dysuria documented in this encounter Additional Health Concerns Infection Onset Date Last Indicated Resolved Time CRE 02/17/2025 02/17/2025 MDRO (other) 02/17/2025 02/17/2025 Respiratory Rule-Out 07/26/2025 07/26/2025 025 10:50 PM EDT COVID-19 Rule-Out 07/26/2025 07/26/2025 07/26/2025 10:50 PM EDT documented as of this encounter Care Teams 911 Telecommunicator Relationship Specialty Start Date End Date Gul, Schuster A, MD [address] [place] [address] PCP - General 05/29/22 documented as of this encounter
--- OUTSIDE RECORDS SUMMARY | 2025-09-20 10:37 | XMS_ITS | Patient Health Record ---
Author Organization [employer] [facility] Address [address] [place] [address] Care Team Providers Care Psychologist Industrial Organizational Name Role Phone TROY LOBO Primary Care Provider GreggzaynabElsa cassidy Unavailable [phone] Allergies Allergen (clinical drug ingredient) Drug/Non Drug Allergy documented on EMR Reaction Allergy Type Onset Date Status Psyllium Unknown Drug Allergy Active ciprofloxacin Ciprofloxacin Unknown Drug Allergy Active doxycycline Doxycycline Unknown Drug Allergy Act eden Penicillin Unknown Drug Allergy Active Results Component Value Reference Range Notes LACTATE DEHYDROGENASE Reviewed date:01/20/2025 02:02:52 PM Interpretation: [...] <1.0 % NRBC Absolute 0.19 <0.10 K/mcL PROSTATE SPECIFIC ANTIGEN DI AGNOSTIC Reviewed date:03/09/2025 07:30:31 AM Interpretation: Performing Lab: Notes/Report: The Siemens Advia Centaur Chemiluminescent Immunoassay is used. Results obtained with different assay methods or kits cannot be used interchangeably. Results cannot be interpreted as absolute evidence of the presence or absence of malignant disease. PSA <0.06 0.00-4.00 ng/mL FERRITIN Reviewed date:03/09/2025 07:30:37 AM Interpretation: Performing Lab: Notes/Report: Ferritin 260 26-388 ng/mL VAS US DUPLEX LOWER EXT VENO US LEFT Reviewed date:03/06/2025 05:18:24 PM Interpretation: Performing Lab: Notes/Report: Note See Note [facility], a member of [employer] Patient Name: CLAY JOHNSON Date of : 1950 Reason for Exam: edema Exam Date: 03/06/2025 [id number] EST Report Status: Final Ordering Provider: JOHN [...] in the left femoral-popliteal venous segment. [place] ([id number]) -------- FINAL REPOR T -------- Dictated By: Alains Adnrew i Dictated Date: 03/06/2025 11:02 ET Assigned Physician: Alanis Stout Reviewed and Electronically Signed By: Alanis Stout Signed Date: 025 11:03 ET Workstation ID: [id number] Transcribed By: Self Edit Transcribed Date: 03/06/2025 11:02 ET XR ABDOMEN 1 VIEW Reviewed date:03/06/2025 05:18:11 PM Interpretation: Performing Lab: Notes/Report: Note See Note [facility], a member of [employer] Patient Name: CLAY JOHNSON Date of : 1950 Reason for Exam: CALCULUS OF KIDNEY Exam Date: 03/06/2025 [id number] EST Report Status: Final Ordering Provider: PATRICE [...] size from 2.8 mm on 01/01/2018. Code 36465 -------- FINAL REPOR T -------- Dictated By: Hunter Piña Dictated Date: 03/06/2025 11:22 ET Assigned Physician: Hunter Piña Reviewed and Electronically Signed By: Hunter Piña Signed Date: 025 11:26 ET Workstation ID: [id number] Transcribed By: Self Edit Transcribed Date: 03/06/2025 11:22 ET PATHOLOGIST REVIEW BLOOD SME AR Reviewed [...] Absolute 0.15 <0.10 K/mcL LACTATE DEHYDROGENASE Reviewed date:03/17/2025 12:18:49 PM Interpretation: [...] Performing Lab: Notes/Report: LDH 712 120-246 unit/L COMPREHENSIVE METABOLIC PANE L Reviewed date:03/09/2025 07:30:40 [...] 0.0-1.4 mg/dL CBC WITH AUTO DIFFERENTIAL Reviewed date:03/08/2025 05:32:05 PM Interpretation: Performing Lab: Notes/Report: WBC 15.2 4.8-10.8 K/mcL RBC 3.80 4.50-5.50 M/mcL Hemoglobin 10.6 13.5-17.5 g/dL Hematocrit 34.8 42.0-54.0 % MCV 92.3 79.0-98.0 FL MCH 28.1 27.0-32.0 pcg MCHC 30.5 32.0-37.0 g/dL RDW 19.4 11.0-15.0 % Platelets 457 130-400 K/mcL MPV 11.1 7.0-11.0 FL NRBC 0.6 <1.0 % NRBC Absolute 0.09 <0.10 K/mcL CULTURE URINE Reviewed date:02/24/2025 03:31:12 PM Interpretation: [...] <1.0 % NRBC Absolute 0.09 <0.10 K/mcL POCT GLUCOSE, BLOOD Reviewed date:02/06/2025 07:48:36 AM Interpretation: Performing Lab: Notes/Report: Glucose POCT 196 70-100 mg/dL XR PELVIS 1-2 VIEWS Reviewed date:02/06/2025 07:48:46 AM Interpretation: Performing Lab: Notes/Report: Note See Note [facility], a member of [employer] Patient Name: CLAY JOHNSON Date of : 1950 Reason for Exam: Left paralumbar/gluteal pain Exam Date: 02/05/2025 [id number] EST Report Status: Final Ordering Provider: JOE [...] Signed Date: 025 12:17 ET Workstation ID: [id number] Transcribed By: Self Edit Transcribed Date: 02/05/2025 [...] Interpretation: Performing Lab: Notes/Report: Note See Note [facility], a member of [employer] Patient Name: CLAY JOHNSON Date of : 1950 Reason for Exam: Low back pain, cancer suspected Exam Date: 02/04/2025 [id number] EST Report Status: Final Ordering Provider: STUART [...] L4-5: Moderate disc bulge and facet arthropathy. Lavm-sm-eqwbtrnq spinal stenosis. Moderate bilateral foraminal stenoses, left greater than right. L5-S1: Unremarkable. Multiple bilateral renal cysts. Paraspinal muscles unremarkable. IMPRESSION: Impression: 1. No evidence for metastatic disease. 2. Dztj-it-rqqgvyef spinal and moderate bilateral foraminal stenoses at L4-5 related to a di sc bulge and facet arthrosis. This document has be en electronically signed by: Ruby Hunt DO on 02/04/2025 14:36:37 XR CHEST 1 VIEW Reviewed date:06/29/2025 03:11:25 PM Interpretation: Performing Lab: Notes/Report: Note See Note [facility], a member of [employer] Patient Name: CLAY JOHNSON Date of : 1950 Reason for Exam: AMS Exam Date: 06/28/2025 [id number] EST Report Status: Final Ordering Provider: MARVIN [...] Signed Date: 025 08:51 ET Workstation ID: [id number] Transcribed By: Self Edit Transcribed Date: 06/29/2025 08:51 ET BASIC METABOLIC PANEL Reviewed date:06/29/2025 03:11:05 PM [...] BUN/Creatinine Ratio 16.0 Calcium 8.3 8.5-10.5 mg/dL LACTATE DEHYDROGENASE Reviewed date:01/10/2025 07:32:29 AM [...] <1.0 % NRBC Absolute 0.12 <0.10 K/mcL CBC WITH AUTO DIFFERENTIAL Reviewed date:08/30/2025 06:05:37 [...] Interpretation: Performing Lab: Notes/Report: Note See Note [facility], a member of [employer] Patient Name: CLAY JOHNSON Date of : 1950 Reason for Exam: Dyspnea, chronic, unclear etiology Exam Date: 06/29/2025 [id number] EST Report Status: Final Ordering Provider: HEATHER CAMERON PCP: TROY LOBO INDICATION: Shortnes s of breath with left lower lobe infiltrate suspected on portable chest radiograph TECHNIQUE: CT scan o f the chest obtained without contrast. Scanner: [employer] on [employer] 128 slice VCT Dose reduction technique: ASIR [...] Signed Date: 025 12:45 ET Workstation ID: [id number] Transcribed By: Self Edit Transcribed Date: 06/29/2025 12:34 ET THYROID STIMULATING HORMONE WITH REFLEX TO FREE [...] Performing Lab: Notes/Report: LDH 535 120-246 unit/L CYTOGENETICS MISCELLANEOUS Reviewed date:05/03/2025 04:16:05 PM Interpretation: Performing Lab: Notes/Report: Scan Result See Scanned Result CBC WITH AUTO DIFFERENTIAL Reviewed date:07/25/2025 05:26:21 [...] mcg/dL Iron Saturation 16 20-50 % CULTURE BLOOD Reviewed date:08/01/2025 07:47:19 AM Interpretation: Performing Lab: Notes/Report: Culture, Blood No growth at 5 days MR CERVICAL SPINE WO AND Edy HANNA Reviewed date:06/16/2025 04:05:24 PM Interpretation: Performing Lab: Notes/Report: Note See Note [facility], a member of [employer] Patient Name: CLAY JOHNSON Date of : 1950 Reason for Exam: Paraspinal mass/tumor Exam Date: 06/15/2025 [id number] EST Report Status: Final Ordering Provider: JOHN [...] Signed Date: 025 15:22 ET Workstation ID: [id number] Transcribed By: Self Edit Transcribed Date: 06/16/2025 15:00 ET MR LUMBAR SPINE WO AND W CON TRAST Reviewed date:06/16/2025 04:27:08 PM Interpretation: Performing Lab: Notes/Report: Note See Note [facility], a member of [facility] Patient Name: CLAY JOHNSON Date of : 1950 Reason for Exam: Paraspinal mass/tumor Exam Date: 06/15/2025 [id number] EST Report Status: Final Ordering Provider: JOHN [...] spleen is only partially included in the rqfvn-hv-cltz but appears enlarged. There is moderate edema [...] Signed Date: 025 16:09 ET Workstation ID: [id number] Transcribed By: Self Edit Transcribed Date: 06/16/2025 15:55 ET MR THORACIC SPINE WO AND Edy HANNA Reviewed date:06/16/2025 04:05:19 PM Interpretation: Performing Lab: Notes/Report: Note See Note [facility], a member of [employer] Patient Name: CLAY JOHNSON Date of : 1950 Reason for Exam: Paraspinal mass/tumor Exam Date: 06/15/2025 [id number] EST Report Status: Final Ordering Provider: JOHN [...] spleen is only partially included in the gqitw-qc-ezss but appears to be enlarged. There are [...] is onl y partially included in the jqnyq-io-rhjl but appears enlarged. -------- FINAL REPOR T -------- Dictated By: Nikos Cota Dictated Date: 06/16/2025 15:23 ET Assigned Physician: Nikos Alvarenga Reviewed and Electronically Signed By: Nikos Alvarenga Signed Date: 025 15:54 ET Workstation ID: [id number] Transcribed By: Self Edit Transcribed Date: 06/16/2025 15:29 ET CULTURE BLOOD Reviewed date:08/01/2025 07:47:13 AM Interpretation: Performing Lab: Notes/Report: Culture, Blood No growth at 5 days TYPE AND SCREEN Reviewed date:07/25/2025 05:26:25 PM Interpretation: Performing Lab: Notes/Report: ABO Group A Rh Type Positive Antibody Screen Negative XR CHEST 2 VIEWS Reviewed date:07/25/2025 05:25:08 PM Interpretation: Performing Lab: Notes/Report: Note See Note [facility], a member of [employer] Patient Name: CLAY JOHNSON Date of : 1950 Reason for Exam: dyspnea Exam Date: 07/25/2025 [id number] EST Report Status: Final Ordering Provider: JOHN [...] Signed Date: 025 09:06 ET Workstation ID: [id number] Transcribed By: Self Edit Transcribed Date: 07/25/2025 09:04 ET FLOW CYTOMETRY Reviewed date:05/03/2025 04:15:58 PM [...] diagnostic phenotypic aberrancy. - The proportion of SB68-tojfsloq blasts is approximately 2.5% of FY79-mtpxlybq cells. Note: Although not entirely specific, the [...] phenotypic aberrancy. There is a population of US31-xqsfjczu blasts with a myeloid phenotype that accounts for 2.5% of QE76-cgyckwfh cells. This population expresses the myeloid associated antigens CD33, CD117 and CD123 (weak, partial) as well as HLA-DR and CD38, but shows no significant expression of CD13, CD15, or specific markers of monocytic, T cell or B cell differentiation. It is noted that most of the granulocytes in this specimen appear to comprise mature OD84-orwtyrjn neutrophils suggesting that this bone marrow represents [...] are 65.7% of total and show generally manager entry immunophenotypic maturation. Most of the granulocytes show expression of CD10 and have phenotypic features of mature granulocytes, raising the possibility of hemodilution. - Monocytic cells are 2.9% of total and show generally manager entry immunophenotypic maturation. - CD45 dim cells are 3.7% of total. CD34+ blasts with coexpression of CD33 (weak), CD38, CD117, CD123 (dim), and HLA-DR without significant expression of CD13 or CD15 account for 2.8% of the WJ73-lryddldb cells. The blasts show no significant expression of CD7 or CD56. Antibodies (27 markers): CD2, CD3, CD4, CD5, CD7, CD8, CD10, CD11b, CD13, CD14, CD15, CD16, CD19, CD20, CD33, CD34, CD38, CD45, CD56, CD64, CD117, CD123, CD200, HLA-DR, [place], Lambda, TCR??. This test was developed and [...] 400 Electronic Signature Alondra Diego M.S., Ph.D., [facility] ([facility]), [facility] - [facility]. Electronic Signature Adi Bejarano M.D., Ph.D. [...] (MF-2). There was a low proportion of BB52-muzphluv blasts detected by flow cytometry. Although that result may not be fully patient relations representative of the bone marrow (a hemodilute specimen), an immunohistochemical study also shows a low proportion of FZ78-ftqukvpj blasts in the bone marrow (estimated at [...] is a majority of T cells. The SM88-carkuzkm B cells include at least a subset [...] diagnostic phenotypic aberrancy. - The proportion of TB96-ymfzxcme blasts is approximately 2.5% of KZ15-qpuqsxfx cells. Note: Although not entirely specific, the [...] phenotypic aberrancy. There is a population of VT04-cxftroqe blasts with a myeloid phenotype that accounts for 2.5% of KQ10-qagrmwdt cells. This population expresses the myeloid associated antigens CD33, CD117 and CD123 (weak, partial) as well as HLA-DR and CD38, but shows no significant expression of CD13, CD15, or specific markers of monocytic, T cell or B cell differentiation. It is noted that most of the granulocytes in this specimen appear to comprise mature YL55-fimqdstg neutrophils suggesting that this bone marrow represents [...] are 65.7% of total and show generally manager entry immunophenotypic maturation. Most of the granulocytes show expression of CD10 and have phenotypic features of mature granulocytes, raising the possibility of hemodilution. - Monocytic cells are 2.9% of total and show generally manager entry immunophenotypic maturation. - CD45 dim cells are 3.7% of total. CD34+ blasts with coexpression of CD33 (weak), CD38, CD117, CD123 (dim), and HLA-DR without significant expression of CD13 or CD15 account for 2.8% of the UM23-bwspzhje cells. The blasts show no significant expression of CD7 or CD56. Antibodies (27 markers): CD2, CD3, CD4, CD5, CD7, CD8, CD10, CD11b, CD13, CD14, CD15, CD16, CD19, CD20, CD33, CD34, CD38, CD45, CD56, CD64, CD117, CD123, CD200, HLA-DR, [place], Lambda, TCR??. This test was developed and [...] marrow aspirate, is submitted in toto to [facility] in [place], [place], for flow cytometric studies. The remaining purple top tube and both green top tubes, containing 3 mL and 6 ml of bone marrow aspirate, respectively, are submitted to [facility], [place], [place], for cytogenetic studies. B. Bone Marrow [...] and their performance characteristics were determined by [facility]. They have not [...] Addendum This case was sent t o [facility], [address] [place], (CLIA #[id number]) for Oncology Chromosome Analysis studies. Their diagnosis is as follows: IR BX AND ASP BONE MARROW Reviewed date:04/25/2025 10:59:39 AM Interpretation: Performing Lab: Notes/Report: Note See Note [facility], a member of [employer] Patient Name: CLAY JOHNSON Date of : 1950 Reason for Exam: Polycythemia vera, myelofibrosis restaging Exam Date: 04/24/2025 [id number] EST Report Status: Final Ordering Provider: ANSHUL [...] Signed Date: 025 13:51 ET Workstation ID: [id number] Transcribed By: Self Edit Transcribed Date: 04/24/2025 [...] <1.0 % NRBC Absolute 0.13 <0.10 K/mcL Reason For Referral No Information Medications Medication [...] tablet Orally Once a day Not-Taking Ipratropium Marion 0.03 % 2 sprays in each nostril [...] High-Dose Unknown 08/29/2022 Administered Fluzone High Dose 70001 IM Intramuscular 09/02/2024 Admini stered Fluzone High Dose 57949 IM Intramuscular 09/04/2025 Admini stered Fluzone High-Dose [...] W/U Status Risk Notes Problem Polycythemia vera (875094199) Polycythemia vera (D45) Active confirmed Problem Hypothyroidism (56139275) Hypothyroidism, unspecified (E03.9) Active confirmed Problem Non-toxic single thyroid nodule (663465937) Nontoxic single thyroid nodule (E04.1) Active confirmed Problem Disorder due to type 2 diabetes mellitus (828817672) Type 2 diabetes mellitus with unspecified complications (E11.8) Active confirmed Problem Obstructive sleep apnea syndrome (disorder) (03557146) Obstructive sleep apnea (adult) (pediatric) (G47.33) Active confirmed Problem Right carotid artery stenosis (548875766022837) Occlusion and stenosis of right carotid artery (I65.21) Active confirmed Problem Pain co-occurrent and due to varicose veins of bilateral legs (1005196847415765 0) Varicose veins of bilateral lower extremities with pain (I83.813) Active confirmed Problem Gastro-esophageal reflux disease without esophagitis (597261165) Gastro-esophageal reflux disease without esophagitis (K21.9) Active confirmed Problem Irritable bowel syndrome with diarrhea (253736125) Irritable bowel syndrome with diarrhea (K58.0) Active confirmed Problem Rosacea (598847906) Rosacea, unspecified (L71.9) Active confirmed Problem Gout (61069686) Gout, unspecifie d (M10.9) Active confirmed Problem Lumbosacral radiculopathy (2412244) Radiculopathy, lumbosacral region (M54.17) Active confirmed Problem Screening for cardiovascular system disease (152880188) Encounter for screening for cardiovascular disorders (Z13.6) Active confirmed Problem History of malignant neoplasm of prostate (039617398) Personal history of malignant neoplasm of prostate (Z85.46) Active confirmed Problem History of disease caused by Severe acute respiratory syndrome coronavirus 2 (situation) (2654846070191493 05) Personal history of COVID-19 (Z86.16) Active confirmed Problem Thyroid nodule (000149250) Thyroid nodule (E04.1) Active confirmed Vital Signs Heart Rate 81 /min 09/04/2025 Temperature 97.5 degrees Fahrenheit 09/04/2025 Oximetry 100 % 09/04/2025 Blood pressure diastolic 72 mm Hg 09/04/2025 Height 69 in 09/04/2025 Blood pressure systolic 130 mm Hg 09/04/2025 Weight 166.1 lbs 09/04/2025 BMI 24.53 kg/m2 09/04/2025 Encounters Encounter Location Date Provider Diagnosis [address] [place] [address] 06/19/2025 TROY LOBO Hypothyroidism, unspecified E03.9 ; Radiculopathy, lumbosacral region M54.17 ; Gastro-esophageal reflux disease without esophagitis K21.9 ; Polycythemia vera D45 ; Personal history of malignant neoplasm of prostate Z85.46 ; Obstructive sleep apnea (adult) (pediatric) G47.33 ; Rosacea, unspecified L71.9 ; Varicose veins of bilateral lower extremities with pain I83.813 and Encounter for screening for cardiovascular disorders Z13.[address] [place] [address] 09/04/2025 TROY LOBO Encounter for genera l [...] complications E11.8 and Encounter for immunization Z23 [address] [place] [address] 02/08/[address] [place] [address] 03/21/[address] [place] [address] 04/04/2025 TROY LOBO [address] [place] [address] 05/04/2025 Elsa Talamantes [address] [address] 08/11/2025 Elsa Talamantes Pneumonia, unspecifi ed organism J18.[address] [address] 09/11/2025 TROY LOBO Assessments Encounter Date Diagnosis [...] nodes were positive and was treated at [facility]. He also complained of lower back [...] has been seen by plastic surgery at [facility] doctor Med June 01, 2024. He is status post chemo and radiation and neck dissection and 3 out of 34 lymph nodes were positive and he follows with [facility]. [place]. Sleep is stable on CPAP [...] for evaluation Eye screening. He sees his practice management consultant regularly. Dental screening. He sees dentist regularly. Advance directive. He is on full code and his HCP is his Curtis [phone] Colon cancer screening. He is up to date on his colonoscopy and is on 4-suan-mnwlr. 06/19/2025 Radiculopathy, lumbosacral region (ICD-10 - M54.17) [...] nodes were positive and was treated at [facility]. He also complained of lower back [...] has been seen by plastic surgery at [facility] doctor Med June 01, 2024. He is status post chemo and radiation and neck dissection and 3 out of 34 lymph nodes were positive and he follows with [facility]. [place]. Sleep is stable on CPAP [...] for evaluation Eye screening. He sees his practice management consultant regularly. Dental screening. He sees dentist regularly. Advance directive. He is on full code and his HCP is his Curtis [phone] Colon cancer screening. He is up to date on his colonoscopy and is on 4-wonr-pkoch. 08/11/2025 Pneumonia, unspecified organism (ICD-10 - J18.9) [...] status post pneumonia and was admitted at [facility] in July is here today for annual physical.plan is as follows Diabetes mellitus type 2. His last hemoglobin A1c was 5.7. He follows up with endocrinology at [facility]. He is not on any medications at [...] and he follows up with oncology at [facility] and also see Dr. Chavarria locally. Polycythemia [...] status post pneumonia and was admitted at [facility] in July is here today for annual physical.plan is as follows Diabetes mellitus type 2. His last hemoglobin A1c was 5.7. He follows up with endocrinology at [facility]. He is not on any medications at [...] and he follows up with oncology at [facility] and also see Dr. Chavarria locally. Polycythemia [...] nodes were positive and was treated at [facility]. He also complained of lower back [...] has been seen by plastic surgery at [facility] doctor Med June 01, 2024. He is status post chemo and radiation and neck dissection and 3 out of 34 lymph nodes were positive and he follows with [facility]. [place]. Sleep is stable on CPAP [...] for evaluation Eye screening. He sees his practice management consultant regularly. Dental screening. He sees dentist regularly. Advance directive. He is on full code and his HCP is his Curtis [phone] Colon cancer screening. He is up to date on his colonoscopy and is on 3-bahh-lnahz. 06/19/2025 Polycythemia vera (ICD-10 - D45) Mr. [...] nodes were positive and was treated at [facility]. He also complained of lower back [...] has been seen by plastic surgery at [facility] doctor Med June 01, 2024. He is status post chemo and radiation and neck dissection and 3 out of 34 lymph nodes were positive and he follows with [facility]. [place]. Sleep is stable on CPAP [...] for evaluation Eye screening. He sees his practice management consultant regularly. Dental screening. He sees dentist regularly. Advance directive. He is on full code and his HCP is his Curtis [phone] Colon cancer screening. He is up to date on his colonoscopy and is on 3-sehx-vymqo. 09/04/2025 Gastro-esophageal reflux disease without esophagitis (ICD-10 [...] status post pneumonia and was admitted at [facility] in July is here today for annual physical.plan is as follows Diabetes mellitus type 2. His last hemoglobin A1c was 5.7. He follows up with endocrinology at [facility]. He is not on any medications at [...] and he follows up with oncology at [facility] and also see Dr. Chavarria locally. Polycythemia [...] status post pneumonia and was admitted at [facility] in July is here today for annual physical.plan is as follows Diabetes mellitus type 2. His last hemoglobin A1c was 5.7. He follows up with endocrinology at [facility]. He is not on any medications at [...] and he follows up with oncology at [facility] and also see Dr. Chavarria locally. Polycythemia [...] Coats and polycythemia vera and sees Dr. Chavraria, urethral stricture surgery by Dr. 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 He also complained of lower back [...] has been seen by plastic surgery at [facility] doctor Med June 01, 2024. He is status post chemo and radiation and neck dissection and 3 out of 34 lymph nodes were positive and he follows with [facility]. [place]. Sleep is stable on CPAP [...] for evaluation Eye screening. He sees his practice management consultant regularly. Dental screening. He sees dentist regularly. Advance directive. He is on full code and his HCP is his Curtis [phone] Colon cancer screening. He is up to date on his colonoscopy and is on 1-zdzi-ezbvi. 06/19/2025 Obstructive sleep apnea (adult) (pediatric) (ICD-10 [...] nodes were positive and was treated at [facility]. He also complained of lower back [...] has been seen by plastic surgery at [facility] doctor Med June 01, 2024. He is status post chemo and radiation and neck dissection and 3 out of 34 lymph nodes were positive and he follows with [facility]. [place]. Sleep is stable on CPAP and sees Dr. Barbosa. He uses his inhalers as needed. Polycythemia vera. He is on Aspirin 81 MG, Hydroxyurea [address] Chavarria.most of his lab work is ordered and followed by hematology Hyperglycemia. A1c 6.8, glucose 153. He sees Dr. Escobar IBS. He sees [facility] I[facility]hima. He sees Dr. Coats. He uses Ketoconazole, Sulfacetamide Sodium and Mometasone Furoate cream umbilical hernia partially reducible he is not in any pain but is worried we will get a surgical referral for him for evaluation Eye screening. He sees his practice management consultant regularly. Dental screening. He sees dentist regularly. Advance directive. He is on full code and his HCP is his Curtis [phone] Colon cancer screening. He is up to date on his colonoscopy and is on 1-ipba-ednqo. 09/04/2025 Obstructive sleep apnea (adult) (pediatric) (ICD-10 [...] status post pneumonia and was admitted at [facility] in July is here today for annual physical.plan is as follows Diabetes mellitus type 2. His last hemoglobin A1c was 5.7. He follows up with endocrinology at [facility]. He is not on any medications at [...] and he follows up with oncology at [facility] and also see Dr. Chavarria locally. Polycythemia vera. Stable and he does not need any phlebotomies. Multiple joint osteoarthritis/lum bar radiculopathy. He follows up with physiatry and have intermittent intra-articular injections. 09/04/2025 Encounter for screening for cardiovascular disorders (ICD-10 - Z13.6) Mr. oJhnson is a 74 year old gentleman with [...] status post pneumonia and was admitted at [facility] in July is here today for annual physical.plan is as follows Diabetes mellitus type 2. His last hemoglobin A1c was 5.7. He follows up with endocrinology at [facility]. He is not on any medications at [...] and he follows up with oncology at [facility] and also see Dr. Chavarria locally. Polycythemia [...] nodes were positive and was treated at [facility]. He also complained of lower back [...] has been seen by plastic surgery at [facility] doctor Med June 01, 2024. He is status post chemo and radiation and neck dissection and 3 out of 34 lymph nodes were positive and he follows with [facility]. [place]. Sleep is stable on CPAP [...] for evaluation Eye screening. He sees his practice management consultant regularly. Dental screening. He sees dentist regularly. Advance directive. He is on full code and his HCP is his Curtis [phone] Colon cancer screening. He is up to date on his colonoscopy and is on 4-inij-ffoeu. 06/19/2025 Varicose veins of bilateral lower extremities [...] nodes were positive and was treated at [facility]. He also complained of lower back [...] has been seen by plastic surgery at [facility] doctor Med June 01, 2024. He is status post chemo and radiation and neck dissection and 3 out of 34 lymph nodes were positive and he follows with [facility]. [place]. Sleep is stable on CPAP [...] for evaluation Eye screening. He sees his practice management consultant regularly. Dental screening. He sees dentist regularly. Advance directive. He is on full code and his HCP is his Curtis [phone] Colon cancer screening. He is up to date on his colonoscopy and is on 3-rphf-wtxli. 09/04/2025 Hypothyroidism, unspecified (ICD-10 - E03.9) Mr. [...] status post pneumonia and was admitted at [facility] in July is here today for annual physical.plan is as follows Diabetes mellitus type 2. His last hemoglobin A1c was 5.7. He follows up with endocrinology at [facility]. He is not on any medications at [...] and he follows up with oncology at [facility] and also see Dr. Chavarria locally. Polycythemia [...] status post pneumonia and was admitted at [facility] in July is here today for annual physical.plan is as follows Diabetes mellitus type 2. His last hemoglobin A1c was 5.7. He follows up with endocrinology at [facility]. He is not on any medications at [...] and he follows up with oncology at [facility] and also see Dr. Chavarria locally. Polycythemia [...] nodes were positive and was treated at [facility]. He also complained of lower back [...] has been seen by plastic surgery at [facility] doctor Med June 01, 2024. He is status post chemo and radiation and neck dissection and 3 out of 34 lymph nodes were positive and he follows with [facility]. [place]. Sleep is stable on CPAP [...] for evaluation Eye screening. He sees his practice management consultant regularly. Dental screening. He sees dentist regularly. Advance directive. He is on full code and his HCP is his Curtis [phone] Colon cancer screening. He is up to date on his colonoscopy and is on 0-azth-nwybh. 09/04/2025 Encounter for immunization (ICD-10 - Z23) [...] status post pneumonia and was admitted at [facility] in July is here today for annual physical.plan is as follows Diabetes mellitus type 2. His last hemoglobin A1c was 5.7. He follows up with endocrinology at [facility]. He is not on any medications at [...] and he follows up with oncology at [facility] and also see Dr. Chavarria locally. Polycythemia vera. Stable and he does not need any phlebotomies. Multiple joint osteoarthritis/lum bar radiculopathy. He follows up with physiatry and have intermittent intra-articular injections. Plan Of Treatment Pending Test Test Name Order Date GLUCOSE 08/28/2023 Future Test Test Name Order Date Hemoglobin [id number] 09/04/2025 CBC With Differential/Platelet-[id number] TSH+Free [id number] 09/04/2025 Lipid Panel-[id number] 09/04/2025 Comp. Metabolic Panel ([id number] 2024 Next Appt Details Provider Name:TROY LOBO , 03/05/2026 10:30:00 AM, [address] [place] [address], [phone], Insurance Providers Payer Name Payer Address Payer Phone Subscriber Number Group Number Insured Name Patient Relationship to Insured Coverage Start Date Coverage End Date Medicare [address] [place] [phone] [id number] Clay Johnson Self - patient is the insured 7 [facility] [address] [place] [address] [id number] 1 Clay Johnson Self - patient is [...] grafting by plastic surgery Dr. Jovel at [facility] April 2024
--- OUTSIDE RECORDS SUMMARY | 2025-09-20 10:38 | XMS_ITS | Data Portability ---
Author Organization [place] - [facility], Allergy Address [address] [address] Care Team Providers Care Can Piler Name Role Phone TROY LOBO Primary Care [...] irritation in this area. Recommended use of lwab-pbx-ywfofmg antibiotic ointment over the small area of residual granulation along the postauricular crease. Because of the change in configuration of the external auditory meatus, it is likely he will be prone to cerumen impaction. Recommend follow-up with me in 3 months for reevaluation. [email or web address] Not available 09/15/2024 09:27:27 02/23/2025 02/23/2025 The [...] a rotational flap graft filling the cavum ojssie resulting in convexity of this area, which [...] Details Recorded Time Hypertrop hy of tonsils 14955738 Active 2017 Hypertrop hy of tonsils; Note: Date Diagnosed : 06/01/2018 12:08 PM (J35.1) Not Available [facility] 4 02:15:50 Sensorine ural hearing loss of bilateral ears 901441387 Active 2017 Sensorine ural hearing loss, bilateral ; Note: Date Diagnosed : 06/11/2018 10:24 AM (H90.3) Not Available [facility] 4 02:15:48 Tinnitus of left ear 03849815356 06 Active 2017 Tinnitus, left ear; Note: Date Diagnosed : 06/11/2018 12:44 PM (H93.12) Not Available [facility] 4 02:15:32 Obstructi ve sleep apnea syndrome 33983450 Active 2019 Obstructi ve sleep apnea (adult) (pediatri c); Note: Date Diagnosed : 04/04/2020 9:58 AM (G47.33) Not Available [facility] 4 02:15:29 Bleeding from nose 083208331 Active 2019 Epistaxis ; Note: Date Diagnosed : 04/04/2020 9:58 AM (R04.0) Not Available [facility] 4 02:15:28 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,[place] [address], [place], [address] , [place] - [facility] 4 22:17:11 Actinic keratosis 542208656 Active 2023 RAMBO DE LA ROSA MD 100 [facility] [address], [place], [address] , [place] - [facility] 4 22:17:19 Hypothyro idism 72821079 Active 2023 RAMBO DE LA ROSA MD 100 [facility] [place],[address], [place], [address] , [facility] - [facility] 4 22:17:30 Lesion of skin of left ear 76917291939 716218 Active 2023 RAMBO DE LA ROSA MD 100 [facility] [place],[address], [place], [address] , [facility] - [facility] 4 10:46:45 Squamous cell carcinoma of skin of ear 618520180 Active 2023 RAMBO DE LA ROSA MD [address] [facility],[address], [place], [place], [address] , [facility] - [facility] 4 20:24:50 Acute otitis externa 22759419 Active 2023 RAMBO DE LA ROSA MD [address] [facility],[address], [place], [place], [address] , [facility] - [facility] 4 15:18:21 Acute otitis externa 79144133 Active 2023 RAMBO DE LA ROSA MD [address] 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,[address], [place], [address] , [place] - [facility] 08:32:19 Impacted cerumen in left ear 53364462366 49896 Active 2023 ROGERS OLIVEIRA MD [address] [facility],[address] [place], [address] , [facility] - [facility] 09:27:36 Problem Notes None recorded. Procedures Surgical History Date Name Laterality Status Provider Name and Address Organization Details Recorded Time 08/28/20 25 Debridement of Ear canal left completed ROGERS OLIVEIRA MD [address] [facility],[address], [address], [place] - [facility] 08/27/2025 21:05:32 02/24/20 25 Debridement of Ear canal left completed ROGERS OLIVEIRA MD [address] [facility],[address], [address], [facility] - [facility] 02/23/2025 10:19:32 09/15/20 24 Comp Audio with Tymps - 77012 & 85289 completed LUIGI SPENCER [address] [facility],[address], [address], [place] - [facility] 09/15/2024 08:41:47 09/15/20 24 Cerumen removal with microscope left completed ROGERS OLIVEIRA MD [address] [facility],[address], [address], [facility] - [facility] 09/15/2024 08:29:59 04/08/20 24 General Biopsy completed RAMBO WOOTEN MD [address] [facility],[address], [address], [facility] - [facility] 04/08/2024 10:46:30 Prostatectomy (turp) completed Angelita Lopez [place] - [facility] 04/08/2024 10:16:10 Imaging Results None recorded. Procedure Notes None recorded. Medical Equipment None Reported. Allergies Allergen ID Allergen Name Allergen Category Reaction Reaction Severity Criticality Documentation Date Start Date Code Code System Note Provider Name and Address Organization Details Recorded Time 116025 doxycycli ne Not available Not available Not available Not available 06/15/2024 3640 RxNorm Milly Pedro hahn [place] - [facility] 4 15:07:05 02541 penicilli n G Not available other Not available Not available 03/22/2024 7980 RxNorm React ion: unkno wn, unspe cifie d;; Not Available [facility] 4 00:52:56 80439 Cipro medicatio n diarrhea Not available Not available 03/22/2024 54124 3 RxNorm React ion: unkno wn, unspe cifie d;; Not Available [facility] 4 00:53:05 Medications Name Sig Start [...] mg tablet 09/15 completed Medicati on ID: [id number] B rand Name: loperami de Send Method: [...] mg tablet 06/15 completed Medicati on ID: [id number] D uration Value: 90 Brand Name: allopuri [...] layed release 06/15 completed Medicati on ID: [id number] B rand Name: aspirin Send Method: E-Prescr [...] topical cream 06/15 completed Medicati on ID: [id number] D uration Value: 30 Brand Name: metronid [...] nasal spray 04/08 completed Medicati on ID: [id number] D uration Value: 30 Brand Name: ipratrop ium bromide Send Method: E-Prescr ibed Sub s Allowed: subs OK Speci al Instruct ion: USE 2 SPRAYS INTO EACH NOSTRILS 4 TIMES DAILY Me dication GenericN dakot[place]: ipratrop ium bromide Medicati on ID: [id number] D uration Value: 30 Brand Name: ipratrop [...] % lotion 06/15 completed Medicati on ID: [id number] D uration Value: 30 Brand Name: clindamy [...] xtended release 02/23 completed Medicati on ID: [id number] B rand Name: Vitamin C Send Method: [...] nasal spray 06/15 completed Medicati on ID: [id number] B rand Name: azelastdimitri ne Send Method: [...] Updated DateTime 02/23/2025 175.26 cm 28.1 kg/m2 42269.55 g Angelita Lopez [facility] 02/23/2025 09:46:34 Date Recorded Body height Body mass index (BMI) Body weight Provider Name and Address Organization Details Last Updated DateTime 07/08/2024 175.26 cm 28.1 kg/m2 05675.55 g Johny Horton [facility] 07/08/2024 11:35:04 Date Recorded Body height Body mass index (BMI) Body weight Provider Name and Address Organization Details Last Updated DateTime 08/28/2025 175.26 cm 28.1 kg/m2 03345.55 g Angelita Lopez [facility] 08/28/2025 09:15:06 Social History None recorded. [...] Disorder N Anesthesia Complications N Heart Attack ([place]) N Other Skin Condition N Diabetes Y [...] RAMBO DE LA ROSA MD [facility] [address] [address] 04/08/2024 09:34:07 04/08/2024 11:03:58 Actinic keratosis 591544806 L57.0 Obstructiv e sleep apnea syndrome 83776629 G47.33 Hypothyroidism 34783837 E03.9 Lesion of skin of left ear 4620462682 9825175 H93.8X2 04775 RAMBO DE LA ROSA MD [facility] [address] [address] 06/15/2024 14:50:50 06/15/2024 15:28:16 Acute otitis externa 93406096 H60.502 Squamous c ell carcinoma of auricle of ear 477629735 C44.229 [id number] RAMBO DE LA ROSA MD [facility] [address] [address] 07/08/2024 11:27:53 07/08/2024 12:03:02 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 Still swelling of skin graft. No need for any packing Suggest 3 drops distilled vinegar left ear once weekly. F/u in 3 months with PA for cleaning History of malignant neoplasm of skin 019412762 Z85.828 Diffuse actinic keratosis and multiple scars. 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 44356615 H95.812 Squamous c ell carcinoma of skin of ear 642593899 C44.229 Impacted c erumen in left ear 7823791664 203805 H61.22 19224 ROGERS OLIVEIRA MD [facility] [address] [address] 08/28/2025 09:05:32 08/28/2025 09:43:24 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 84364013 H95.812 Squamous c ell carcinoma of skin of ear 115269151 C44.229 Impacted c erumen in left ear 9233311682 095493 H61.22 History of radiation therapy 121543244 Z92.3 105827 Health Concerns Section Related Observation LastModified by Organization Detai ls LastModified Time None Recorded Concern Status LastModified by Organization Details LastModified Time None Recorded Advance Directives Directive None Recorded Payers Insurance Date Sequence Insurance Name Policy Number Policy Ryan Covered Member ID Ryan Member ID Guarantor Name 08/28/2025 2 [place] [id number] Clay Barron [id number] Clay Barron 08/28/2025 1 MEDICARE B-[place]: [facility] Clay Barron [id number] Clay Barron Notes Date Note Type Note Provider Name and Address Organization Details Recorded Time 07/08/2024 text/html s/p Moh's and plastic reconstruction. Left EAC was narrow but not closed. Ofloxacin drops given last visit. Feels better waiting for possible radiation RAMBO WOOTEN MD 100 [facility],[address], [address], [facility] - [facility] 07/08/2024 12:20:25 09/15/2024 text/html Patient underwent Mohs [...] the left ear. ROGERS OLIVEIRA MD 100 [facility],[address], [address], [facility] 09/15/2024 09:28:53 09/15/2024 text/html Audiological Evaluation HPIReported by PatientHearing LossFor hearing loss perceived, patient reportshearing loss in both ears (left ear worse)but reportsrecent onset (not sudden).Use of amplification or other hearing devicesFor use of amplification or other hearing devices, patient reportsnone (does not use amplification). LUIGI SPENCER 100 [facility],[address], [address], [facility] 09/15/2024 09:22:54 02/23/2025 text/html Patient underwent Mohs [...] note, the patient has been going to [facility] for further care. 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 PET and CT scans negative for distant metastasis. He is undergoing immunotherapy and patient reports that he will be having surgery in [place] in the next couple of months. ROGERS OLIVEIRA MD [address] [facility],[address], [address], [place] - [facility] 02/23/2025 10:23:42 08/28/2025 text/html Patient underwent Mohs [...] note, the patient has been going to [facility] for further care. He was noted to [...] in the left. ROGERS OLIVEIRA MD 100 [facility],[place] [address], [place], [address], [place] - [facility] 08/28/2025 09:42:34
--- OUTSIDE RECORDS SUMMARY | 2025-09-20 10:38 | XMS_ITS | Encounter Summary ---
Author Organization [facility] Address [address] [place] [address] Care Team Providers Care Parcel Post Carrier Name Role Phone Mariely Vargas MD Primary Care Provider [phone] Encounter Details Date Type Department Care Team (Late Contact Info) Description 09/23/2024 Lab Requisition [facility] - Main Lab [address] [facility] [place] [address] Dorie Thompson, PA [address] [address] Dysuria Social History Tobacco Use Types Packs/Day [...] Info) Description 09/21/2025 12:00 PM EST Appointment [facility] Endoscopy [address] [place] [id number] Faraz Adams MD [address] [address] Bereket BorregoFOX Need Address Info Felicia Rodriguez MD [address] [place] [address] 12/05/2025 10:00 AM EST Office Visit [facility] Hematology Oncology [address] [place] [address] Lor Bal MD [address] [place] [address] documented as of this encounter Procedures Procedure Name Priority Date/Time Associated Diagnosis Comments BACTERIAL IDENTIFICATION AND SUSCEPTIBILITY, AEROBIC Routine 09/22/2024 10:45 AM EST Dysuria documented in this encounter Results * (ABNORMAL) Bacterial identification and susceptibility, aerobic (09/22/2024 10:45 AM EST) Culture, Bacterial ID and Sensitivity Klebsiella pneumoniae ssp pneumoniae(A) LOVE 09/24/2024 9:01 AM EST [facility] LAB Comment: This is an [...] MICROBIOLOGY - GENERAL ORDER KEVIN Final Result [facility] [address] [place] [address], documented in this encounter Visit Diagnoses Diagnosis Dysuria documented in this encounter Additional Health Concerns Infection Onset Date Last Indicated Resolved Time CRE 02/17/2025 02/17/2025 MDRO (other) 02/17/2025 02/17/2025 Respiratory Rule-Out 07/26/2025 07/26/2025 025 10:50 PM EDT COVID-19 Rule-Out 07/26/2025 07/26/2025 07/26/2025 10:50 PM EDT documented as of this encounter Care Teams Parcel Post Carrier Relationship Specialty Start Date End Date Mariely Vargas MD [address] [place] [address] PCP - General 05/29/22 documented as of this encounter
--- OUTSIDE RECORDS SUMMARY | 2025-09-20 10:38 | XMS_ITS | Encounter Summary ---
Author Organization [facility] Address [address] [place] [address] Care Team Providers Care Director Of Global Marketing Name Role Phone Mariely Vargas MD Primary Care Provider [phone] Encounter Details Date Type Department Care Team (Late Contact Info) Description 10/14/2024 Lab Requisition [facility] - Main Lab [address] [facility] [place] [phone] Dorie Thompson, PA [address] [address] Frequency of micturition Social History Tobacco Use [...] Info) Description 09/21/2025 12:00 PM EST Appointment [facility] Endoscopy [address] [place] [phone] Faraz Adams MD [address] [facility] [address] [place] [address] Bereket Borrego CRNA Need Address Info Felicia Rodriguez MD [address] [place] [address] 12/05/2025 10:00 AM EST Office Visit [facility] Hematology Oncology [address] [place] [phone] Lor Bal MD [address] [place] [phone] documented as of this encounter Procedures Procedure Name Priority Date/Time Associated Diagnosis Comments BACTERIAL IDENTIFICATION AND SUSCEPTIBILITY, AEROBIC Routine 10/13/2024 12:00 AM EST Frequency of micturition documented in this encounter Results * (ABNORMAL) Bacterial identification and susceptibility, aerobic (10/13/2024 12:00 AM EST) Culture, Bacterial ID and Sensitivity Klebsiella pneumoniae ssp pneumoniae(A) LOVE 10/15/2024 9:39 AM EST [facility] HOSP[facility] LAB Comment: This is [...] ORDER KEVIN Final Result [facility]) [facility] LAB [address] [place] [address], documented in this encounter Visit Diagnoses Diagnosis Frequency of micturition Urinary frequency documented in this encounter Additional Health Concerns Infection Onset Date Last Indicated Resolved Time CRE 02/17/2025 02/17/2025 MDRO (other) 02/17/2025 02/17/2025 Respiratory Rule-Out 07/26/2025 07/26/2025 025 10:50 PM EDT COVID-19 Rule-Out 07/26/2025 07/26/2025 07/26/2025 10:50 PM EDT documented as of this encounter Care Teams Director Of Global Marketing Relationship Specialty Start Date End Date Mariely Vargas MD [address] [place] [address] PCP - General 05/29/22 documented as of this encounter
--- OUTSIDE RECORDS SUMMARY | 2025-09-20 10:38 | XMS_ITS | Encounter Summary ---
Author Organization [facility] Address [address] [facility] [address] [place] [address] Phone Care Team Providers Care Business Supervisor Name Role Phone Mariely Vargas MD Primary Care Provider Lindsay Perales MD Unavailable Richard Eden DO, Justine Unavailable [phone] Maribel Nur MD, MPH Unavailable Kezia Webb MD Unavailable [phone] Lor Bal MD Unavailable [phone] Mynor Coats MD Unavailable [phone] Eliseo Rand RN Unavailable Ayaka Grier@[email or web address] Grover Barbosa MD Unavailable Neville Torres MD Unavailable + [phone] Kya Diaz RN Unavailable Naga Raygoza@[email or web address] Yvonne Lewis Unavailable [phone] Brennon Delcid MD, MPH Unavailable + Cathy Schmidt PA-C Unavailable + Encounter Details Date Type Department Care Team (Late st Contact Info) Description 06/21/2025 Procedure Pass Erika Lank Imaging Department, [facility] Cancer [place], [place] [address] [facility], Floor L1 [place] [address] Social History Tobacco Use Types Packs/Day Years [...] is your housing situation today? I have rbyan sing 03/29/2025 How many times have you [...] Contact Info) Description 07/24/2025 Procedure Pass Erika Lank Imaging Department, [facility], MRI [address] [place] [address], Floor [address]1 [place] [address] 10/04/2025 1:20 PM EST Office Visit [facility] [address] [place] [address] Alla Escobar MD [address] [place] [address] 10/12/2025 2:30 PM EST Office Visit [facility], [address], [address] [place] [address] Sasha Strickland PA-C [address] [place] [address] Neisha @[facility] Libertad Ramos DO [address] [place] [address] [email or web address] 10/12/2025 3:30 PM EST Office Visit [facility], [address], [address] [place] [address] Libertad Ramos V, DO [address] [place] [address] [email or web address] 10/26/2025 11:40 AM EST Appointment [facility] Imaging Department, [facility], MRI [address] [facility], Floor [address]1 [place] [address] Libertad Ramos V, DO [address] [place] [address] [email or web address] 11/07/2025 10:30 AM EST Blood Draw Laboratory Services, [address], 2nd [place] [address] Darinel Ordaz M.D. Leukemia MD Mike [address] [place], [place] [phone] [place] [address] [email or web address] 11/07/2025 11:30 AM EST Office Visit [facility], Division of Hematologic Oncology, [address], 8th [place] [address] Darinel Ordaz M.D. Leukemia MD Mike [address] [place], [place] [phone] [place] [address] [email or web address] 11/30/2025 11:00 AM EST Office Visit Oral Medicine, [address], 11th [place] [address] Hao Robertson, SRAVANTHI, PhD [address] [place] [address] [email or web address] 12/15/2025 11:00 AM EST Office Visit [facility], [address], 11th [place] [address] Maribel Nur MD, MPH [address] [place] [address] Loida@[facility] 12/15/2025 12:00 PM EST Blood Draw [facility] Imaging Department, [facility], Imaging [id number] [address] [place] [address], Floor [address]1 [place] [address] Libertad Ramos DO [address] [place] [address] [email or web address] 12/15/2025 1:30 PM EST Appointment [facility] Imaging Department, [facility], PET/CT [address] [place] [address] Libertad Ramos DO [address] [place] [address] [email or web address] 12/21/2025 1:00 PM EST Office Visit [facility], [address], 5th [place] [address] Libertad Ramos DO [address] [place] [address] [email or web address] 03/13/2026 1:00 PM EDT Office Visit [facility], [address], 11th [place] [address] Cathy Schmidt PA-C [address] [facility] [place] [address] [email or web address] Maribel Nur MD, MPH [address] [place] [address] [email or web address]@[email or web address] documented as of this encounter Visit Diagnoses Not on filedocumented in this encounter Care Teams Business Supervisor Relationship Specialty Start Date End Date Mariely Vargas MD [address] [address] PCP - General Internal Medicine 03/29/24 Lindsay Perales MD [address] [place] [address] [email or web address] Radiation Oncology 07/12/24 Libertad Ramos DO [address] [place] [address] [email or web address] Medical Oncology 12/22/24 Maribel Nur MD, MPH [address] [place] [address] Loida@[email or web address] Otolaryngology 12/22/24 Kezia Webb MD [address] [address] [email or web address] Dermatology 12/22/24 Lor Bal MD [address] [place] [phone] Wendy Chavarria@[email or web address] Internal Medicine 12/22/24 Mynor Coats MD [address] [address] Dermatology 01/02/25 Eliseo Rand RN 450 [place] [address] [email or web address] Associate Infusion Nurse 01/02/25 Grover Barbosa MD [address] [place] [address] [place] [address] Extension Specialist Pulmonary Disease 01/05/25 [place] [address] [place] [address] [email or web address] Urology 01/27/25 Kya Diaz, PHILIPPE [address] [address] [email or web address]@D [email or web address] Associate Infusion Nurse 01/23/25 Yvonne Lewis [address] [place] [address] [email or web address] Plate Cutter 04/13/25 Brennon Delcid MD, MPH [address] [place] [address], ASB1- L2 [place] [address] [email or web address] Radiation Oncology 06/02/25 Cathy Schmidt PA-C [address] [place] [address] [place] [address] [email or web address] Physician Quality Control Assessor 06/14/25 documented as of this encounter Additional Source Comments The information contained in this document represents components of the legal health record. It is not the complete legal health record.[facility]
--- OUTSIDE RECORDS SUMMARY | 2025-09-20 10:38 | XMS_ITS ---
Author Organization [facility] Address [address] [facility] [address] [place] [address] Phone Care Team Providers Care Gardener Florist Name Role Phone Mariely Vargas MD Primary Care Provider Lindsay Perales MD Unavailable Richard Eden DO, Justine Unavailable [phone] Maribel Nur MD, MPH Unavailable Kezia Webb MD Unavailable [phone] Lor Bal MD Unavailable [phone] Mynor Coats MD Unavailable Eliseo Rand RN Unavailable Ayaka [email or web address] rGover Barbosa MD Unavailable Neville Torres MD Unavailable + [phone] Kya Diaz RN Unavailable Naga [email or web address] [email or web address] Yvonne Lewis Unavailable [phone] Brennon Delcid MD, MPH Unavailable + Cathy Schmidt PA-C Unavailable + Active Problems Problem Noted Date Diagnosed Date Pneumonia of both lungs due to infectious organi sm 08/10/2025 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 with [...] the first two cycles with me at [facility] and the 3rd and 4th cycles [...] fluconazole. He is also being followed by oral medicine. His scans show no evidence of disease. Cutaneous squamous cell carcinoma, locally advanced S/p 4 cycles of neoadjuvant cemiplimab and surgery with 3/34 nodes involved - Finished adjuvant radiation 06/14/2025 - Lavern converted to 0 - checking every 3 months - PET-CT 3 months after finishing radiation showed no evidence of disease. - One more PET-CT in 3 months and Lavern and then every 6 months after that [...] repeat course of antibiotics Assessment & Plan (08/08/2025 4:29 PM EDT): [...] the first two cycles with me at [facility] and the 3rd and 4th cycles [...] the first two cycles with me at [facility] and the 3rd and 4th cycles [...] Chavarria - Holding hydroxyuria - Referred to [facility] - Reviewing bone marrow biopsy results [...] the first two cycles with me at [facility] and the 3rd and 4th cycles [...] He may elect to also see a roll mill operator at [facility] while he is here getting radiation. [...] - holding hydroxyuria - consider referral to [facility] - reviewing bone marrow biopsy results [...] and looking forward to his trip to [place]. Cutaneous squamous cell carcinoma, locally advanced - [...] 200 cGy 5,000 cGy Reference Points Delivered Renaldo 05/10/2025 - 06/14/2025 5,000 cGy Resolved Problems [...] FNA of this nodule on 01/08/2023 at [facility] and the cytology was insufficient for diagnosis. [...] FNA of this nodule on 01/08/2023 at [facility] and the cytology was insufficient for diagnosis. [...]
--- OUTSIDE RECORDS SUMMARY | 2025-09-20 10:40 | XMS_ITS | Encounter Summary ---
Author Organization [facility] Address [address] [facility] [address] [place] [address] Phone Care Team Providers Care Cap Maker Name Role Phone Mariely Vargas MD Primary Care Provider [phone] Lindsay Perales MD Unavailable Richard Eden DO, Justine Unavailable [phone] Maribel Nur MD, MPH Unavailable Kezia Webb MD Unavailable [phone] Lor Bal MD Unavailable [phone] Mynor Coats MD Unavailable Eliseo Rand RN Unavailable Ayaka Grier@[email or web address] Grover Barbosa MD Unavailable Neville Torres MD Unavailable + [phone] Kya Diaz RN Unavailable Naga Raygoza@[email or web address].[email or web address] Yvonne Lewis Unavailable [phone] Brennon Delcid MD, MPH Unavailable + Cathy Schmidt PA-C Unavailable + Encounter Details Date Type Department Care Team (Late st Contact Info) Description 01/27/2025 Procedure Pass [facility] [address] [place] [address] Social History Tobacco Use Types Packs/Day Years [...] 07/24/2025 Procedure Pass Erika Lank Imaging Department, [facility], MRI [address] [facility], Floor L1 [place] [address] 10/04/2025 1:20 PM EST Office Visit [facility] [address] [place] [address] Alla Escobar MD [address] [place] [address] 3rd [place] [address] 10/12/2025 2:30 PM EST Office Visit [facility], [address], [address] [place] [address] Sasha Strickland PA-C [address] [place] [address] Neisha @[email or web address] Libertad Ramos DO [address] [place] [address] [email or web address] 10/12/2025 3:30 PM EST Office Visit [facility], [address], 5th [place] [address] Libertad Ramos DO [address] [place] [address] [email or web address] 10/26/2025 11:40 AM EST Appointment Erika Rg Imaging Department, [facility], MRI [address] [facility], Floor [address]1 [place] [address] Libertad Ramos DO 450 [place] [address] [email or web address] 11/07/2025 10:30 AM EST Blood Draw Laboratory Services, [address], 2nd [place] [address] Darinel Ordaz M.D. Leukemia MD stephon [address] [place] [address] [place] [address] Elena@[email or web address] 11/07/2025 11:30 AM EST Office Visit [facility], Division of Hematologic Oncology, [address], 8th [place] [address] Darinel Ordaz M.D. Leukemia MD Mike [address] [place] [address] [place] [address] Elena@[email or web address] 11/30/2025 11:00 AM EST Office Visit Oral Medicine, [address], 11th [place] [address] Hao Robertson, SRAVANTHI, PhD [address] [place] [address] [email or web address] 12/15/2025 11:00 AM EST Office Visit [facility], [address], 11th [place] [address] Maribel Nur MD, MPH [address] [place] [address] Loida@[facility] 12/15/2025 12:00 PM EST Blood Draw [facility] Imaging Department, [facility], Imaging Vwmln-tm-Muiq [address] [facility], Floor [address]1 [place] [address] Libertad Ramos DO [address] [place] [address] [email or web address] 12/15/2025 1:30 PM EST Appointment [facility] Imaging Department, [facility], PET/CT [address] [place] [address] Libertad Ramos DO [address] [place] [address] [email or web address] 12/21/2025 1:00 PM EST Office Visit [facility], [address], 5th [place] [address] Libertad Ramos DO [address] [place] [address] [email or web address] 03/13/2026 1:00 PM EDT Office Visit [facility], [address], 11th [place] [address] Cathy Schmidt PA-C [address] [place], [place] [address]am and [facility], [place] [email or web address] Maribel Nur MD, MPH [address] [place] [address] Loida@[facility] documented as of this encounter Visit Diagnoses Not on filedocumented in this encounter Care Teams Cap Maker Relationship Specialty Start Date End Date Mariely Vargas MD [address] [address] PCP - General Internal Medicine 03/29/24 Lindsay Perales MD [address] [place] [address] [email or web address] Radiation Oncology 07/12/24 Libertad Ramos DO [address] [place] [address] [email or web address] Medical Oncology 12/22/24 Maribel Nur MD, MPH [address] [place] [address] Loida@[facility] Otolaryngology 12/22/24 Kezia Webb MD [address] [place] [address] [email or web address] Dermatology 12/22/24 Lor Bal MD [address] [place] [phone] Wendy [email or web address] Internal Medicine 12/22/24 Mynor Coats MD [address] [address] Dermatology 01/02/25 Eliseo Rand, PHILIPPE [address] [place] [address] [email or web address] Associate Infusion Nurse 01/02/25 Grover Barbosa MD [address] [place] [address] [place] [address] Data Deliverables Manager Pulmonary Disease 01/05/25 Neville Torres MD [address] [address] [email or web address] Urology 01/27/25 Kya Diaz, PHILIPPE [address] [address] [email or web address]@D [email or web address] Associate Infusion Nurse 01/23/25 Yvonne Lewis [address] [place] [address] [email or web address] Grocery Store Bagger 04/13/25 Brennon Delcid MD, MPH [address] [place] [address], [facility]- [address] [address] [email or web address] [email or web address] Radiation Oncology 06/02/25 Cathy Schmidt PA-C [address] [place] [address] [place] [address] [email or web address] Physician Easement Worker 06/14/25 documented as of this encounter Additional Source Comments The information contained in this document represents components of the legal health record. It is not the complete legal health record.[facility]
--- OUTSIDE RECORDS SUMMARY | 2025-09-20 10:40 | XMS_ITS | Encounter Summary ---
Author Organization [facility] Address [address] [facility] [address] [place] [address] Phone Care Team Providers Care Textile Colorist Formulator Name Role Phone Mariely Vargas MD Primary Care Provider Lindsay Perales MD Unavailable [phone] Richard Eden DO, Justine Unavailable [phone] Maribel Nur MD, MPH Unavailable Kezia Webb MD Unavailable [phone] Lor Bal MD Unavailable [phone] Mynor Coats MD Unavailable Eliseo Rand RN Unavailable Ayaka Grier@[email or web address].[email or web address] Coppola.[facility] Grover Barbosa MD Unavailable Neville Torres MD Unavailable + [phone] Kya Diaz RN Unavailable Naga Raygoza@[email or web address] [facility]BERT.[facility] Yvonne Lewis Unavailable [phone] Brennon Delcid MD, MPH Unavailable + Cathy Schmidt PA-C Unavailable + Encounter Details Date Type Department Care Team (Late st Contact Info) Description 01/27/2025 Procedure Pass [facility] [address] [place] [address] Social History Tobacco Use Types Packs/Day Years [...] you interested in more education? Not on beendicto e 03/05/2023 Are you concerned about learning? [...] 07/24/2025 Procedure Pass Erika Lank Imaging Department, [facility], MRI [address] [facility], Floor L1 [place] [address] 10/04/2025 1:20 PM EST Office Visit [facility] [address] [place] [address] Alla Escobar MD [address] [place] [address] 3rd [place] [address] 10/12/2025 2:30 PM EST Office Visit [facility], [address], [address] [place] [address] Sasha Strickland PA-C [address] [place] [address] Neisha @[email or web address] Libertad Ramos DO [address] [place] [address] [email or web address] 10/12/2025 3:30 PM EST Office Visit [facility], [address], 5th [place] [address] Libertad Ramos DO [address] [place] [address] [email or web address] 10/26/2025 11:40 AM EST Appointment Erika Rg Imaging Department, [facility], MRI [address] [facility], Floor L1 [place] [address] Libertad Ramos DO 450 [place] [address] [email or web address] 11/07/2025 10:30 AM EST Blood Draw Laboratory Services, [address], 2nd [place] [address] Darinel Ordaz M.D. Leukemia MD stephon [address] [place] [address] [place] [address] [email or web address]@[facility] 11/07/2025 11:30 AM EST Office Visit [facility], Division of Hematologic Oncology, [address], 8th [place] [address] Darinel Ordaz M.D. Leukemia MD Mike [address] [place] [address] [place] [address] Elena@[facility] 11/30/2025 11:00 AM EST Office Visit Oral Medicine, [address], 11th [place] [address] Hao Robertson, SRAVANTHI, PhD [address] [place] [address] [email or web address] 12/15/2025 11:00 AM EST Office Visit [facility], [address], 11th [place] [address] Maribel Nur MD, MPH [address] [place] [address] Loida@[facility] 12/15/2025 12:00 PM EST Blood Draw [facility] Imaging Department, [facility], Imaging Arsbg-qd-Ppyy [address] [facility], Floor L1 [place] [address] Libertad Ramos DO [address] [place] [address] [email or web address] 12/15/2025 1:30 PM EST Appointment [facility] Imaging Department, [facility], PET/CT [address] [place] [address] Libertad Ramos DO [address] [place] [address] [email or web address] 12/21/2025 1:00 PM EST Office Visit [facility], [address], 5th [place] [address] Libertad Ramos DO [address] [place] [address] [email or web address] 03/13/2026 1:00 PM EDT Office Visit [facility], [address], 11th [place] [address] Cathy Schmidt PA-C [address] [place], [place] [address]am and [facility] [place], [place] [email or web address] Maribel Nur MD, MPH [address] [place] [address] Loida@[facility] documented as of this encounter Visit Diagnoses Not on filedocumented in this encounter Care Teams Textile Colorist Formulator Relationship Specialty Start Date End Date Mariely Vargas MD [address] [address] PCP - General Internal Medicine 03/29/24 Lindsay Perales MD [address] [place] [address] [email or web address] Radiation Oncology 07/12/24 Libertad Ramos DO [address] [place] [address] [email or web address] Medical Oncology 12/22/24 Maribel Nur MD, MPH [address] [place] [address] Loida@[facility] Otolaryngology 12/22/24 Kezia Webb MD [address] [place] [address] [email or web address] Dermatology 12/22/24 Lor Bal MD [address] [place] [phone] Wendy Chavarria@[facility] Internal Medicine 12/22/24 Mynor Coats MD [address] [address] Dermatology 01/02/25 Eliseo Rand, PHILIPPE 450 [place] [address] Zoe@[email or web address] Associate Infusion Nurse 01/02/25 Grover Barbosa MD [address] [place] [address] [place] [address] Director Of Transportation Pulmonary Disease 01/05/25 Neville Torres MD [address] [address] [email or web address] Urology 01/27/25 Kya Diaz, PHILIPPE [address] [address] Silvia@D [email or web address] Associate Infusion Nurse 01/23/25 Yvonne Lewis [address] [place] [address] [email or web address] .[facility] Water Control Supervisor 04/13/25 Brennon Delcid MD, MPH [address] [place] [address], [facility]- [address] [address] Richard@[email or web address] Radiation Oncology 06/02/25 Cathy Schmidt PA-C [address] [place] [address] [place] [address] [email or web address] Physician Bakery Sales Clerk 06/14/25 documented as of this encounter Additional Source Comments The information contained in this document represents components of the legal health record. It is not the complete legal health record.[facility]
--- OUTSIDE RECORDS SUMMARY | 2025-09-20 10:40 | XMS_ITS | Encounter Summary ---
Author Organization [facility] Address [address] [facility] [address] [place] [address] Phone Care Team Providers Care Edge Bander Operator Name Role Phone Mariely Vargas MD Primary Care Provider Lindsay Perales MD Unavailable Richard Eden DO, Justine Unavailable [phone] Maribel Nur MD, MPH Unavailable Kezia Webb MD Unavailable [phone] Lor Bal MD Unavailable [phone] Mynor Coats MD Unavailable Eliseo Rand RN Unavailable Ayaka Grier@[email or web address] Coppola.[facility] Grover Barbosa MD Unavailable Neville Torres MD Unavailable + [phone] Kya Diaz RN Unavailable Naga Raygoza@[email or web address] [facility]ERT.[facility] Yvonne Lewis Unavailable [phone] Brennon Delcid MD, MPH Unavailable + Cathy Schmidt PA-C Unavailable + Encounter Details Date Type Department Care Team (Late st Contact Info) Description 03/29/2025 Procedure Pass [facility] Periop 75 [place] [address] Social History Tobacco Use Types Packs/Day Years [...] 5:56 PM EDT Malgorzata Sneed RN * [place] Suicide Severity Rating Scale (Screener/Recent Self-Report) Question [...] 07/24/2025 Procedure Pass Erika Lank Imaging Department, [facility] [place], MRI [address] [facility], Floor L1 [place] [address] 10/04/2025 1:20 PM EST Office Visit [facility] [address] [place] [address] Alla Escobar MD [address] [place] [address] 3rd [place] [address] 10/12/2025 2:30 PM EST Office Visit [facility], [facility] [place] [address] [facility], 5th [place] [address] Sasha Larsen PA-C 450 [place] [address] Neisha @[facility] Libertad Ramos DO [address] [place] [address] [email or web address] 10/12/2025 3:30 PM EST Office Visit [facility], [address], 5th [place] [address] Libertad Ramos DO [address] [place] [address] [email or web address] 10/26/2025 11:40 AM EST Appointment Erika Lank Imaging Department, [facility] [place], MRI [address] [facility], Floor L1 [place] [address] Libertad Ramos DO [address] [place] [address] [email or web address] 11/07/2025 10:30 AM EST Blood Draw Laboratory Services, [address], 2nd [place] [address] Darinel Ordaz M.D. [facility]emia [facility] [address] [place] [address] [place] [address] Elena@[facility] 11/07/2025 11:30 AM EST Office Visit [facility] for Leukemia, Division of Hematologic Oncology, [address], 8th [place] [address] Darinel Ordaz M.D. Leukemia [facility], [address] [place], [place] [address] [place] [address] Elena@[facility] 11/30/2025 11:00 AM EST Office Visit Oral Medicine, [address], 11th [place] [address] Hao Robertson DMD, PhD 75 [place] [address] [email or web address] 12/15/2025 11:00 AM EST Office Visit [facility], [address], 11th [place] [address] Maribel Nur MD, MPH 45 [place] [address] Loida@[facility] 12/15/2025 12:00 PM EST Blood Draw [facility] Imaging Department, [facility], Imaging Tsxui-jx-Qrbn [address] [place] [address], Floor L1 [place] [address] Libertad Ramos DO [address] [place] [address] [email or web address] 12/15/2025 1:30 PM EST Appointment [facility] Imaging Department, [facility] [place], PET/CT [address] [place] [address] Libertad Ramos DO [address] [place] [address] [email or web address] 12/21/2025 1:00 PM EST Office Visit [facility], [facility] [address] [facility], 5th [place] [address] Libertad Ramos DO 450 [place] [address] [email or web address] 03/13/2026 1:00 PM EDT Office Visit [facility], [facility] [address] [facility], 11th [place] [address] Cathy Schmidt PA-C [address] [place] [address] [place] [address] [email or web address] Maribel Nur MD, MPH [address] [place] [address] Loida@[facility] documented as of this encounter Visit Diagnoses Not on filedocumented in this encounter Care Teams Edge Bander Operator Relationship Specialty Start Date End Date Mariely Vargas MD [address] [address] PCP - General Internal Medicine 03/29/24 Lindsay Perales MD [address] [place] [address] [email or web address] Radiation Oncology 07/12/24 Libertad Ramos DO [address] [place] [address] [email or web address] Medical Oncology 12/22/24 Maribel Nur MD, MPH [address] [place] [address] [place] [address] [email or web address]@[facility] Otolaryngology 12/22/24 Kezia Webb MD [address] [place] [address] [email or web address] Dermatology 12/22/24 Lor Bal MD [address] [place] [phone] Wendy Chavarria@[facility] Internal Medicine 12/22/24 Mynor Coats MD [facility] [address] [address] Dermatology 01/02/25 Eliseo Rand RN [address] [place] [address] Zoe@[facility] Associate Infusion Nurse 01/02/25 Grover Barbosa MD [address] [place] [address] [place] [address] Lubrication Equipment Servicer Pulmonary Disease 01/05/25 Neville Torres MD [facility] [address] [address] Urology 01/27/25 Kya Diaz, PHILIPPE [address] [address] Silvia@[facility] Associate Infusion Nurse 01/23/25 Yvonne Lewis [address] [place] [address] [email or web address] .[facility] Home Designer 04/13/25 Brennon Delcid MD, MPH [address] [place] [address], ASB1- L2 [place] [address] Richard@[email or web address] Radiation Oncology 06/02/25 Cathy Schmidt PA-C [address] [place] [address] [place] [address] [email or web address] Physician Logistics Loss Prevention Manager 06/14/25 documented as of this encounter Additional Source Comments The information contained in this document represents components of the legal health record. It is not the complete legal health record.[facility]
--- OUTSIDE RECORDS SUMMARY | 2025-09-20 10:40 | XMS_ITS | Encounter Summary ---
Author Organization [facility] Address [address] [facility] [address] [place] [address] Phone Care Team Providers Care Surgical Resident Name Role Phone Mariely Vargas MD Primary Care Provider Lindsay Perales MD Unavailable Richard Eden DO, Justine Unavailable [phone] Maribel Nur MD, MPH Unavailable Kezia Webb MD Unavailable [phone] Lor Bal MD Unavailable [phone] Mynor Coats MD Unavailable Eliseo Rand RN Unavailable Ayaka Grier@[email or web address].[email or web address] Coppola.[facility] Grover Barbosa MD Unavailable [phone] Neville Torres MD Unavailable + [phone] Kya Diaz RN Unavailable Naga Raygoza@[email or web address].[email or web address] HER[facility]ERT.[facility] Yvonne Lewis Unavailable [phone] Brennon Delcid MD, MPH Unavailable + Cathy Schmidt PA-C Unavailable + Encounter Details Date Type Department Care Team (Late st Contact Info) Description 08/28/2025 Orders Only [facility] [place] Department of Radiation Oncology [address] [facility], Floor L2 [place] [address] Cathy Schmidt PA-C [address] [facility] [place] [address] [email or web address] Social History Tobacco Use Types [...] 07/24/2025 Procedure Pass Erika Lank Imaging Department, [facility], MRI [address] [place] [address], Floor L1 [place] [address] 10/04/2025 1:20 PM EST Office Visit [facility] [address] [place] [address] Alla Escobar MD [address] [place] [address] 10/12/2025 2:30 PM EST Office Visit [facility], [address], 5th [place] [address] Sasha Strickland PA-C [address] [place] [address] Neisha @[email or web address] Libertad Ramos DO [address] [place] [address] [email or web address] 10/12/2025 3:30 PM EST Office Visit [facility], [address], 5th [place] [address] Libertad Ramos V, DO 450 [place] [address] [email or web address] 10/26/2025 11:40 AM EST Appointment Erika Lank Imaging Department, [facility], MRI [address] [facility], Floor L1 [place] [address] Libertad Ramos DO 450 [place] [address] [email or web address] 11/07/2025 10:30 AM EST Blood Draw Laboratory Services, [address], 2nd [place] [address] Darinel Ordaz M.D. Leukemia MD stephon [address] [place], [place] [address] [place] [address] Elena@[facility] 11/07/2025 11:30 AM EST Office Visit [facility] for [facility], Division of Hematologic Oncology, [address], 8th [place] [address] Darinel Ordaz M.D. Leukemia MD Mike [address] [place], [place] [address] [place] [address] Elena@[facility] 11/30/2025 11:00 AM EST Office Visit Oral Medicine, [address], [address]th [place] [address] Hao Robertson DMD, PhD 75 [place] [address] [email or web address] 12/15/2025 11:00 AM EST Office Visit [facility], [address], [address]th [place] [address] Maribel Nur MD, MPH 45 [place] [address] Loida@[facility] 12/15/2025 12:00 PM EST Blood Draw [facility] Imaging Department, [facility], Imaging Vikjz-ls-Yfhb [address] [facility], Floor L1 [place] [address] Libertad Ramos V, DO [address] [place] [address] [email or web address] 12/15/2025 1:30 PM EST Appointment [facility] Imaging Department, [facility], PET/CT 450 [place] [address] Libertad Ramos DO [address] [place] [address] [email or web address] 12/21/2025 1:00 PM EST Office Visit [facility], [address], [address]th [place] [address] Libertad Ramos V DO [address] [place] [address] [email or web address] 03/13/2026 1:00 PM EDT Office Visit [facility], [facility] [place] [address] [place] [address], 11th [place] [address] Cathy Schmidt PA-C [address] [place] [address] [place] [address] [email or web address] Maribel Nur MD, MPH [address] [place] [address] Loida@[facility] documented as of this encounter Visit Diagnoses Not on filedocumented in this encounter Care Teams Surgical Resident Relationship Specialty Start Date End Date Mariely Vargas MD [address] [address] PCP - General Internal Medicine 03/29/24 Lindsay Perales MD [address] [place] [address] [email or web address] Radiation Oncology 07/12/24 Libertad Ramos DO [address] [place] [address] [email or web address] Medical Oncology 12/22/24 Maribel Nur MD, MPH [address] [place] [address] Loida@[facility] Otolaryngology 12/22/24 Kezia Webb MD [address] [place] [address] 4J [place] [address] [email or web address] Dermatology 12/22/24 Lor Bal MD [address] [place] [phone] Wendy Chavarria@[facility] Internal Medicine 12/22/24 Mynor Coats MD [address] [address] Dermatology 01/02/25 Eliseo Rand RN 450 [place] [address] Zoe@[facility] Associate Infusion Nurse 01/02/25 Grover Barbosa MD [address] [place] [address] [place] [address] Building Components Designer Pulmonary Disease 01/05/25 Neville Torres MD [address] [place] [address] [email or web address] Urology 01/27/25 Kya Diaz RN [address] Silvia@[email or web address] Associate Infusion Nurse 01/23/25 Yvonne Lewis [address] [place] [address] [email or web address] .[facility] Shactor Helper 04/13/25 Brennon Delcid MD, MPH [address] [place] [address], ASB1- L2 [place] [address] [email or web address] Radiation Oncology 06/02/25 Cathy Schmidt PA-C [address] [place] [address] [place] [address] [email or web address] Physician Claim Specialist 06/14/25 documented as of this encounter Additional Source Comments The information contained in this document represents components of the legal health record. It is not the complete legal health record.[facility]
--- OUTSIDE RECORDS SUMMARY | 2025-09-20 10:40 | XMS_ITS | Clinical Summary ---
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 Grover Barbosa MD Unavailable Neville Torres MD Unavailable Kya Diaz RN Unavailable [email or web address] Yvonne Lewis Unavailable [phone] Brennon Delcid MD, MPH Unavailable + [...] day. 30 g 3 08/03/20 25 Active nystatin (MYCOSTATIN) 100,000 units/mL suspension Swish and spit 5 mL (500,000 Units total) 3 (three) times a day. 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 500 mL 6 08/16/20 25 Active sodium chloride 0.9 % nebulizer solutionIndicat ions:Pneumonia of both lungs due to infectious organism, unspecified part of lung Take 3 mL by nebulization as needed (thick secretions). 90 mL 12 08/16/20 25 Active dexAMETHasone 0.5 mg/5 mL solution Swish and spit 5 mL (0.5 mg total) 3 (three) times a day. Rinse 5 minutes.Do not swallow. No food or drink for 20 min. 450 mL 5 09/19/20 25 026 Active dexAMETHasone 0.5 mg/5 mL solution Swish and spit 5 mL (0.5 mg total) 3 (three) times a day. Rinse 5 minutes.Do not swallow. No food or drink for 20 min. 450 mL 5 08/10/20 25 025 Discontin ued(Reord er) Active Problems [...] the first two cycles with me at [facility] and the 3rd and 4th [...] He had the first two cycles with at [facility] and the 3rd and 4th [...] the first two cycles with me at [facility] and the 3rd and 4th [...] [place] - Holding hydroxyuria - Referred to [facility] - Reviewing bone marrow biopsy results tomorrow [...] the first two cycles with me at [facility] and the 3rd and 4th [...] He may elect to also see a air traffic coordinator at [facility] while he is here getting radiation. His [...] - holding hydroxyuria - consider referral to [facility] - reviewing bone marrow biopsy results tomorrow [...] and looking forward to his trip to [place]. Cutaneous squamous cell carcinoma, locally advanced - [...] of this nodule on 01/08/2023 at [facility] and the cytology was insufficient for diagnosis. [...] of this nodule on 01/08/2023 at [facility] and the cytology was insufficient for diagnosis. [...] Encounters Date Type Department Care Team Description 09/19/2025 10:00 AM EST Telemedicine [facility], [address] [place] [address] Libertad Ramos V, Squamous cell carcinoma of skin (Primary Dx); Acquired hypothyroidism 09/15/2025 8:30 AM EST Office Visit [facility], [address] [place] [address] Maribel Nur MD, MPH Squamous cell carcinoma, scalp/neck (Primary Dx) 09/13/2025 3:30 PM EST Office Visit [facility], [address] [place] [address] Brennon Delcid MD, MPH Squamous cell carcinoma, scalp/neck (Primary Dx) 09/13/2025 10:39 AM EST - 09/13/2025 11:59 PM EST Hospital Encounter [facility], [facility], PET/CT [address] [place] [address] Libertad Ramos DO Discharge Disposition: Home or Self Care 09/13/2025 10:00 AM EST - 09/13/2025 10:38 AM EST Hospital Encounter [facility], [facility], CT [address] [facility], Floor [address] [place] [phone] Cathy Schmidt PA-C Schoenfeld, Jonathan D, MD, MPH Discharge Disposition: Home or Self Care 09/05/2025 11:00 AM EDT Nutrition Nutrition Department, [place] [address] Zenobia Hebert LDN Protein-calorie malnutrition, unspecified severity (Primary Dx) 08/31/2025 11:00 AM EDT Treatment [facility], [address] [place] [address] Maribel Nur MD, MPH Shoshana Fernandez, [facility]-FL[facility] Dysphagia, oropharyngeal phase (Primary Dx) 08/31/2025 10:00 AM EDT Office Visit Oral Medicine, [address] [place] [address] Hao Robertson, DMD, PhD History of radiation to head and neck region (Primary Dx); Mucositis oral; Xerostomia 08/28/2025 Orders Only [facility] Department of Radiation Oncology [address] [place] [address], Floor [address] [place] [phone] Cathy Schmidt PA-C 08/24/2025 10:00 AM EDT - 08/24/2025 11:59 PM EDT Hospital Encounter [facility] Department of Radiation Oncology [address] [place] [address], Floor [address] [place] [address] Cathy Schmidt PA-C Schoenfeld, Jonathan D, MD, MPH Discharge Disposition: Home or Self Care 08/16/2025 11:30 AM EDT [facility], [address] [facility], [address]th [place] [address] Maribel Nur MD, MPH Shoshana Fernandez, [facility] Dysphagia, oropharyngeal phase (Primary Dx) 08/16/2025 11:05 AM EDT - 08/16/2025 11:59 PM EDT Hospital Encounter [facility] Department of Radiation Oncology [address] [place] [address], [address] [place] [address] Cathy Schmidt PA-C Schoenfeld, Jonathan D, MD, MPH Discharge Disposition: Home or Self Care 08/15/2025 Orders Only [facility] Department of Radiation Oncology [address] [place] [address], [address] [place] [address] Cathy Schmidt PA-C Pneumonia of both lungs due to infectious organism, unspecified part of lung (Primary Dx) 08/14/2025 Orders Only [facility] Department of Radiation Oncology [address] [place] [address], [address] [place] [address] Cathy Schmidt PA-C Pneumonia of both lungs due to infectious organism, unspecified part of lung (Primary Dx); 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 08/10/2025 1:30 PM EDT - 08/10/2025 11:59 PM EDT Hospital Encounter [facility] Department of Radiation Oncology [address] [place] [address], [address] [place] [address] Cathy Schmidt PA-C Schoenfeld, Jonathan D, MD, MPH Discharge Disposition: Home or Self Care 08/10/2025 11:45 AM EDT - 08/10/2025 1:29 PM EDT Hospital Encounter [facility], [facility], Radiography [address] [facility], Floor [address] [place] [address] Cathy Schmidt PA-C Schoenfeld, Jonathan D, MD, MPH Discharge Disposition: Home or Self Care 08/10/2025 11:30 AM EDT Office Visit Oral Medicine, [address], [address] [place] [address] Hao Robertson DMD, PhD Mucositis oral (Primary Dx); Squamous cell carcinoma of parotid; History of radiation to head and neck region 08/10/2025 E-Consult [facility] [address] [place] [address] Ellie Scruggs MD 08/10/2025 Documentation Oral Medicine, [address], [address] [place] [address] Esperanza Smith DMD 08/08/2025 11:45 AM EDT Nutrition Nutrition Department, [place] [address] Brennon Delcid MD, MPH Zenobia Hebert LDN Protein-calorie malnutrition, unspecified severity (Primary Dx) 08/08/2025 Orders Only [facility] Department of Radiation Oncology [address] [place] [address], [address] [place] [phone] Cathy Schmidt PA-C Acquired hypothyroidism (Primary Dx) 08/03/2025 1:00 PM EDT Procedure visit Respiratory Therapy Department, [place] [address] Darinel Ordaz M.D. 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; Polycythemia vera; Lumbar herniated disc; Mucositis; Acquired hypothyroidism; Fatigue, unspecified type 08/03/2025 10:00 AM EDT Office Visit [facility], [address] [place] [address] Britany Kaplan MD, MPH Oral ulcer (Primary Dx); Mucositis; Squamous cell carcinoma of skin; Actinic keratoses 08/03/2025 Orders Only [facility] Department of Radiation Oncology [address] [place] [address], [address] [place] [address] Cathy Schmidt PA-C 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 (Primary Dx); Excessive oral secretions 08/01/2025 Orders Only [facility] Department of Radiation Oncology [address] [place] [address], [address] [place] [address] Cathy Schmidt PA-C 07/26/2025 Orders Only [facility] Department of Radiation Oncology [address] [place] [address], [address] [place] [address] Cathy Schmidt PA-C 07/26/2025 Documentation [facility], [address], [address] [place] [address] Shoshana Fernandez CCC-FLUE CLEANER 07/25/2025 Telephone [facility], [address], [address] [place] [address] Mary Larsen, PHILIPPE Symptom Management 07/24/2025 Orders Only [facility], [address], [address] [place] [address] Libertad Ramos V, Renal mass (Primary Dx) 07/23/2025 Refill [facility], [address], [address] [place] [address] Chandler Bernabe MD, PhD Med Change Request 07/20/2025 Orders Only [facility], [address], [address] [place] [address] Libertad Ramos DO 07/20/2025 Telephone [facility], [address], [address] [place] [phone] Eliz Huynh, RN Symptom Management 07/20/2025 Telephone [facility], [address], [address] [place] [address] Eliz Huynh, RN Care Coordination 07/20/2025 Orders Only [facility] Department of Radiation Oncology [address] [place] [address], [address] [place] [address] Cathy Schmidt PA-C 07/18/2025 Telephone [facility] Department of Radiation Oncology [address] [facility], Floor [address] [place] [phone] Brennon Delcid MD, MPH call back (Yuriy Morgan, this patient left a voice mail requesting a call back to discuss some symptoms that are not going away, he mentioned Thrush, please advise, thanks.) 07/15/2025 Orders Only [facility], [address], [address] [place] [address] Libertad Ramos V, Renal mass (Primary Dx) 07/14/2025 2:30 PM EDT Office Visit [facility], Division of Hematologic Oncology, [address], [address] [place] [address] Darinel Ordaz M.D. 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 Leukemia MD Mike Discharge Disposition: Home or Self Care 07/14/2025 10:00 AM EDT Office Visit [facility], [facility] [address] [facility], [address]th [place] [address] Maribel Nur MD, MPH Squamous cell carcinoma, scalp/neck (Primary Dx) 07/13/2025 11:00 AM EDT Nutrition Nutrition Department, [address] [address] Zenobia Hebert LDN Dietary counseling and surveillance (Primary Dx) 07/05/2025 2:20 PM EDT Office Visit [facility] at [address] [address] Keith Bolton MD Lumbar disc herniation with radiculopathy (Primary Dx) 06/29/2025 Documentation Nutrition Department, [facility] [address] [place] [address] Zenobia Hebert LDN 06/26/2025 Ancillary Orders [facility] [address] [place] [address] Keith Bolton MD 06/26/2025 Ancillary Orders [facility] [address] [place] [address] Keith Bolton MD 06/26/2025 Ancillary Orders [facility] [address] [place] [address] Keith Bolton MD 06/26/2025 Ancillary Orders [facility] [address] [place] [address] Keith Bolton MD 06/21/2025 10:58 AM EDT - 06/21/2025 11:59 PM EDT Hospital Encounter [facility] Department of Radiation Oncology [address] [facility], [address] [place] [address] Cathy Schmidt PA-C Schoenfeld, Jonathan D, MD, MPH Discharge Disposition: Home or Self Care 06/21/2025 Procedure Pass [facility], [facility], [place] [address] [facility], [address] [place] [address] 06/21/2025 Orders Only [facility], [facility] [address] [facility], [address]th [place] [address] Cathy Schmidt PA-C Squamous cell carcinoma, scalp/neck (Primary Dx) from Last 3 Months Immunizations Immunization Administration Dates Next Due Pneumococcal polysaccharide PPSV23 07/19/2010([place]venson: Patient Decision) Family History Medical History Relation [...] Sign Reading Time Taken Comments Blood Pressure 146/66 09/15/2025 8:21 AM EST Pulse 81 09/15/2025 8:21 AM EST Temperature 36.4 C (97.6 F) 09/15/2025 8:21 AM EST Respiratory Rate 18 09/15/2025 8:19 AM EST Oxygen Saturation 98% 09/15/2025 8:21 AM EST Inhaled Oxygen Concentration 100% 03/29/2025 1 2:33 PM EDT Weight 77 kg (169 lb 12.1 oz) 09/15/2025 8:19 AM EST Height 174.3 cm (5' 8.62 ) 07/05/2025 2:01 PM ED T Body Mass Index 25.35 07/05/2025 2:01 PM EDT Plan of Treatment Upcoming Encounters Date Type Department Care Team (Late st Contact Info) Description 07/24/2025 Procedure Pass [facility], [facility], MRI [address] [facility], Floor [address]1 [place] [address] 10/04/2025 1:20 PM EST Office Visit [facility] [address] [place] [address] Alla Escobar MD [address] [place] [address] [address] [place] [address] 10/12/2025 2:30 PM EST Office Visit [facility], [address], [address] [place] [address] Sasha Strickland PA-C [address] [place] [phone] [email or web address] Libertad Ramos DO [address] [place] [phone] [email or web address] 10/12/2025 3:30 PM EST Office Visit [facility], [address], [address] [place] [address] Libertad Ramos DO [address] [place] [address] [email or web address] 10/26/2025 11:40 AM EST Appointment [facility], [facility], MRI [address] [facility], [address] [place] [address] Libertad Ramos DO [address] [place] [address] [email or web address] 11/07/2025 10:30 AM EST Blood Draw Laboratory Services, [address], [address] [place] [address] Darinel [facility] [address] [place], [place] [phone] [place] [phone] [email or web address] 11/07/2025 11:30 AM EST Office Visit [facility], Division of Hematologic Oncology, [address], [address] [place] [address] Darinel Ordaz M.D. Leukemia [facility] [address] [place], [place] [address] [place] [phone] [email or web address] 11/30/2025 11:00 AM EST Office Visit Oral Medicine, [address], [address] [place] [address] Hao Robertson DMD, PhD [address] [place] [address] [email or web address] 12/15/2025 11:00 AM EST Office Visit [facility], [address], [address] [place] [address] Maribel Nur MD, MPH [address] [place] [address] [email or web address] 12/15/2025 12:00 PM EST Blood Draw [facility], [facility], Imaging [id number] [address] [facility], [address] [place] [address] Libertad Ramos V DO [address] [place] [address] [email or web address] 12/15/2025 1:30 PM EST Appointment [facility], [facility], PET/CT [address] [place] [address] Libertad Ramos V DO [address] [place] [phone] [email or web address] 12/21/2025 1:00 PM EST Office Visit [facility], [address], [address] [place] [address] Libertad Ramos V DO [address] [place] [address] [email or web address] 03/13/2026 1:00 PM EDT Office Visit [facility], [address], [address] [place] [address] Cathy Schmidt PA-C [address] [place] [address] [place] [address] Maribel Nur MD, MPH [address] [place] [phone] [email or web address] Health Maintenance Due Date Last Done [...] URINE MICROALBUMIN/CREATININE RATIO 12/31/2024 12/31/2023 COVID-19 VACCINE ( season) 2025 09/04/2025, 09/04/2022, 03/06/2022, Additional history exists HEMOGLOBIN A1C 12/15/2025 06/14/2025, 01/07, 12/31/2023, Additional history exists BLOOD PRESSURE 03/15/2026 09/15/2025 TSH LEVEL 09/13/2026 09/13/2025, 1012/2024, 06/29/2025, Additional history exists HEPATITIS C SCREENING Completed [...] patient's age to complete this topic IPV VACCINES Aged Out No longer eligi ble based on patient's age to complete this topic MENINGOCOCCAL VACCINES (ACWY) Aged Out No longer eligible based on patient's age to complete this topic MENINGOCOCCAL VACCINES (B) Aged Out N o longer eligible based on patient's age to complete this topic Medical Devices Implanted Type Area Research Programmer Device Identifier Shelf Expiration Date Model / Serial / Lot Ivc Filter Procedures Procedure Name Priority Date/Time Associated Diagnosis Comments CT NECK SOFT TISSUE WITH CONTRAST Routine 09/13/2025 1:36 PM EST Squamous cell carcinoma, scalp/neck NM PET CT SCALP TO TOES Routine 09/13/2025 1:08 PM EST Squamous cell carcinoma of skin POCT GLUCOSE Routine 09/13/2025 11:46 AM EST RED BLOOD CELL (RBC) MORPHOLOGY Routine 09/13/2025 10:36 AM EST Squamous cell carcinoma of skin DIFFERENTIAL, MANUAL (SYSMEX) Routine 09/13/2025 10:36 AM EST Squamous cell carcinoma of skin CBC AND DIFFERENTIAL Routine 09/13/2025 10:36 AM EST Squamous cell carcinoma of skin BULLOUS PEMPHIGOID, BP180 AND BP230 ANTIBODIES, IGG Routine 09/13/2025 10:36 AM EST Oral ulcer Mucositis FREE T4 Routine 09/13/2025 10:36 AM EST Squamous cell carcinoma of skin THYROID STIMULATING HORMONE (TSH) Routine 09/13/2025 10:36 AM EST Squamous cell carcinoma of skin LDH Routine 09/13/2025 10:36 AM EST Squamous cell carcinoma of skin CBC AND DIFFERENTIAL Routine 09/13/2025 10:36 AM EST Squamous cell carcinoma of skin COMPREHENSIVE METABOLIC PANEL (CMP) Routine 09/13/2025 10:36 AM EST Squamous cell carcinoma of skin XR CHEST PA AND LATERAL 2 VIEWS [...] AM EDT 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 HEMOGLOBIN A1C, KENOSHA SENDOUT Routine 06/14/2025 2:10 PM EDT Squamous cell carcinoma of skin HEPATITIS B SURFACE ANTIGEN Routine 01/02/2025 1:50 PM EST Squamous cell carcinoma of skin MICROALBUMIN/CREATINI NE RATIO, RANDOM URINE Routine 12/31/2023 11:24 AM EST Type 2 diabetes mellitus without complication, without long-term current use of insulin LIPID PANEL Routine 12/31/2023 11:14 AM EST Type 2 diabetes mellitus without complication, without long-term current use of insulin from Last 3 Months or Most Recently Relevant to Health Maintenance Results * CT NECK SOFT TISSUE WITH CONTRAST (09/13/2025 1:36 PM EST) Anatomical Region Laterality Modality Neck Computed Tomogra phy 09/13/2025 1:54 PM EST Impressions 09/13/2025 3:13 PM EST 1. Interval resection of left parotid mass with postsurgical changes. 2. No new adenopathy. Narrative 09/13/2025 3:[address] NECK SOFT TISSUE WITH CONTRAST Referring clinician's provided indication for this examination in [facility]: * Advanced head/neck cancer, follow up TECHNIQUE: Multidetector-row CT of the neck was performed with intravenous contrast using tailored dose modulation techniques. Images were reconstructed in the axial, coronal, and sagittal planes. COMPARISON: February 28, 2025 FINDINGS: Aerodigestive Tract: The nasopharynx, oropharynx and hypopharynx are symmetric. Lymph Nodes: There are no pathologic by size criteria lymph nodes present. Previously noted lymphadenopathy has been surgically resected with new surgical clips present. Salivary Glands: There is postsurgical change about the left parotid with increased density in the parotid bed. Surgical clips are present in the region. The right parotid is intact. There is no submandibular abnormality. Thyroid Gland: Vessels: Vascular enhancement appears preserved. Paranasal Sinuses and Mastoids: There is no significant sinus thickening. Brain and Orbits: No intracranial mass or mass effect. Lung Apices: Normal. No abnormal opacity is present. Bones and Soft Tissues: There are moderate cervical spondylitic changes. Procedure Note Srinivasan Aceves MD - 09/13/2025 CT NECK SOFT TISSUE WITH CONTRAST Referring clinician's provided indication for this examination in [facility]: *Advanced head/neck cancer, follow up TECHNIQUE: Multidetector-row CT of the neck was performed with intravenouscontrast using tailored dose modulation techniques. Images werereconstructed in the axial, coronal, and sagittal planes. COMPARISON: February 28, 2025 FINDINGS: Aerodigestive Tract: The nasopharynx, oropharynx and hypopharynx aresymmetric. Lymph Nodes: There are no pathologic by size criteria lymph nodes present.Previously noted lymphadenopathy has been surgically resected with newsurgical clips present. Salivary Glands: There is postsurgical change about the left parotid withincreased density in the parotid bed. Surgical clips are present in theregion. The right parotid is intact. There is no submandibularabnormality. Thyroid Gland: Vessels: Vascular enhancement appears preserved. Paranasal Sinuses and Mastoids: There is no significant sinusthickening. Brain and Orbits: No intracranial mass or mass effect. Lung Apices: Normal. No abnormal opacity is present. Bones and Soft Tissues: There are moderate cervical spondylitic changes. IMPRESSION: 1. Interval resection of left parotid mass with postsurgical changes. 2. No new adenopathy. Cathy Schmidt PA-C IMG CT XSPECIALTY ORDERABLES Final Result * NM PET CT Scalp to Toes (09/13/2025 1:08 PM EST) Anatomical Region Laterality Modality Positron Emissio n Tomography (PET) 09/13/2025 2:02 PM EST Impressions 09/13/2025 2:39 PM EST 1. There is no evidence of FDG-avid malignancy related to the metastatic cutaneous squamous cell carcinoma in the head and neck. 2. Persistent diffuse increased FDG uptake throughout the bone marrow with splenomegaly, and scattered moderate to mildly FDG-avid normal or top normal in size lymph nodes in the neck and trunk that may 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 The lymph nodes with the highest uptake are seen in the neck and this should be followed in future imaging. Narrative 09/13/2025 2:39 PM EST Reason for exam (per EHR order): *Skin cancer, assess treatment response; squamosu cell carcinoma of the head and neck - staging scans after treatment Additional clinical information obtained from the EHR: 74-year-old male. 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 Scan for restaging. Subsequent treatment strategy TECHNIQUE: Radiopharmaceutical: F-18-FDG. Dose: 9.76 mCi. Blood glucose: 120 mg/dL. TECHNIQUE: At 69 minutes following IV tracer administration via a left antecubital vein, positron emission tomography was performed from the vertex of the skull through the toes. Non-contrast low-dose helical CT imaging was performed over the same range without breath-hold for attenuation correction of PET images and anatomic correlation. COMPARISON: FDG PET/CT scan from December 19, 2024. CT of the chest and neck February 28, 2025 FINDINGS: HEAD AND NECK: There is uptake in the left mandible that is probably from periodontal disease. The left parotid gland has been resected with resolution of previously seen tracer avid parotid lesions. There are tracer avid cervical lymph nodes noted bilaterally. For example: * New right level IIA subcentimeter lymph node with SUVmax of 4.6 (image 82) * New left level Ib lymph node with SUVmax of 3.0 (image 81) * Additional subcentimeter bilateral level Ib lymph nodes are noted with milder uptake. More inferiorly in the supraclavicular betsy stations there are numerous subcentimeter lymph nodes with low level uptake. These are slightly smaller than in the previous exam, but are similar in number and low level uptake. For example a dominant left supraclavicular lymph node previously measured 11 mm with SUV max of 1.5 and now measures 5 mm with SUVmax of 1.0 (image 113). Atherosclerotic calcifications in both carotid systems. CHEST: Ports and devices: None. Lungs: No abnormal FDG uptake. Scar or atelectasis in the lower lobes. Previously described lung nodules smaller than 5 mm are not readily evident in this exam, probably due to quiet breathing technique. These are too small to evaluate by PET imaging. Pleura: No abnormal FDG uptake. Lymph Nodes: Again noted are multiple subcentimeter mediastinal and axillary lymph nodes with low level uptake. These are stable. For example, a dominant left axillary lymph node measures 10 mm with SUV max of 1.2 (image 123), previously measuring 9 mm with SUV max of 1.4 Mediastinum: No abnormal FDG uptake. Coronary artery atherosclerotic calcifications. Breasts/Chest Wall: No abnormal FDG uptake. Mild bilateral gynecomastia. ABDOMEN/PELVIS: Liver/biliary system: No abnormal FDG uptake. Gallstones. Pancreas: No abnormal FDG uptake. Spleen: Similar mildly increased but diffuse uptake in the spleen that is just slightly above liver background.. Stable splenomegaly with the cephalocaudal extent measuring 19.1 cm. Adrenal Glands: No abnormal FDG uptake. Kidneys: No abnormal FDG uptake. Bilateral photopenic hypodense lesions consistent with simple cysts. Bilateral renal calcifications measuring up to 3 mm and without evidence of obstruction. Bowel: No abnormal FDG uptake. Mesentery, Omentum and Peritoneum: No abnormal FDG uptake. Atherosclerotic calcifications in the abdominal aorta and its major branches. Stable IVC 15 filter in the infrarenal IVC. Pelvis Organs: No abnormal FDG uptake. Status post prostatectomy. Lymph Nodes: There are numerous mesenteric and retroperitoneal subcentimeter lymph nodes with minimal if any uptake.. Similar but less striking findings are seen in the pelvis where some of these lymph nodes are calcified. These findings are stable. Examples include: * Para-aortic 7 mm lymph node with no significant tracer uptake just below the level of the renal vessels (image 243), previously measuring 8 mm and with no uptake. MUSCULOSKELETAL/LOWER EXTREMITIES: Similar diffuse bone marrow uptake that is probably related to polycythemia vera. Mild multilevel degenerative changes in the spine. 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 Scanfor restaging. Subsequent treatment strategy TECHNIQUE: Radiopharmaceutical: F-18-FDG. Dose: 9.76 mCi. Blood glucose: 120 mg/dL. TECHNIQUE: At 69 minutes following IV tracer administration via a leftantecubital vein, positron emission tomography was performed from thevertex of the skull through the toes. Non-contrast low-dose helical CTimaging was performed over the same range without breath-hold forattenuation correction of PET images and anatomic correlation. COMPARISON: FDG PET/CT scan from December 19, 2024. CT of the chest andneck February 28, 2025 FINDINGS: HEAD AND NECK: There is uptake in the left mandible that is probably fromperiodontal disease. The left parotid gland has been resected withresolution of previously seen tracer avid parotid lesions. There aretracer avid cervical lymph nodes noted bilaterally. For example: * New right level IIA subcentimeter lymph node with SUVmax of 4.6 (image82) * New left level Ib lymph node with SUVmax of 3.0 (image 81) * Additional subcentimeter bilateral level Ib lymph nodes are noted withmilder uptake. More inferiorly in the supraclavicular betsy stations there are numeroussubcentimeter lymph nodes with low level uptake. These are slightlysmaller than in the previous exam, but are similar in number and low leveluptake. For example a dominant left supraclavicular lymph node previouslymeasured 11 mm with SUV max of 1.5 and now measures 5 mm with SUVmax of1.0 (image 113). Atherosclerotic calcifications in both carotid systems. CHEST: Ports and devices: None. Lungs: No abnormal FDG uptake. Scar or atelectasis in the lower lobes.Previously described lung nodules smaller than 5 mm are not readilyevident in this exam, probably due to quiet breathing technique. These aretoo small to evaluate by PET imaging. Pleura: No abnormal FDG uptake. Lymph Nodes: Again noted are multiple subcentimeter mediastinal andaxillary lymph nodes with low level uptake. These are stable. For example,a dominant left axillary lymph node measures 10 mm with SUV max of 1.2(image 123), previously measuring 9 mm with SUV max of 1.4 Mediastinum: No abnormal FDG uptake. Coronary artery atheroscleroticcalcifications. Breasts/Chest Wall: No abnormal FDG uptake. Mild bilateral gynecomastia. ABDOMEN/PELVIS: Liver/biliary system: No abnormal FDG uptake. Gallstones. Pancreas: No abnormal FDG uptake. Spleen: Similar mildly increased but diffuse uptake in the spleen that isjust slightly above liver background.. Stable splenomegaly with thecephalocaudal extent measuring 19.1 cm. Adrenal Glands: No abnormal FDG uptake. Kidneys: No abnormal FDG uptake. Bilateral photopenic hypodense lesionsconsistent with simple cysts. Bilateral renal calcifications measuring upto 3 mm and without evidence of obstruction. Bowel: No abnormal FDG uptake. Mesentery, Omentum and Peritoneum: No abnormal FDG uptake. Atheroscleroticcalcifications in the abdominal aorta and its major branches. Stable IVC15 filter in the infrarenal IVC. Pelvis Organs: No abnormal FDG uptake. Status post prostatectomy. Lymph Nodes: There are numerous mesenteric and retroperitonealsubcentimeter lymph nodes with minimal if any uptake.. Similar but lessstriking findings are seen in the pelvis where some of these lymph nodesare calcified. These findings are stable. Examples include: * Para-aortic 7 mm lymph node with no significant tracer uptake justbelow the level of the renal vessels (image 243), previously measuring 8mm and with no uptake. MUSCULOSKELETAL/LOWER EXTREMITIES: Similar diffuse bone marrow uptake thatis probably related to polycythemia vera. Mild multilevel degenerativechanges in the spine. IMPRESSION: 1. There is no evidence of FDG-avid malignancy related to the metastaticcutaneous squamous cell carcinoma in the head and neck. 2. Persistent diffuse increased FDG uptake throughout the bone marrowwith splenomegaly, and scattered moderate to mildly FDG-avid normal or topnormal in size lymph nodes in the neck and trunk that may be related toknown polycythemia vera. The lymph nodes with the highest uptake are seenin the neck and this should be followed in future imaging. us Libertad Eden DO IMG NM PET Final Result * (ABNORMAL) POCT Glucose (09/13/2025 11:46 AM EST) Glucose 120(H) 70 - 99 mg/dL 09/13/2025 11:54 AM EST [facility] Blood (Blood) 09/13/2025 11: 46 AM EST 09/13/2025 11:54 AM EST us Libertad Eden DO LAB POCT DOCKED DEVICE UNSOL ICTED RESULTS Final Result [facility] [address] [place] [id number] * (ABNORMAL) Lactate Dehydrogenase (LDH) (09/13/2025 10:36 AM EST) LDH 659(H) 135 - 225 U/L 09/13/2025 11:32 AM EST [facility] Blood 09/13/2025 10:3 6 AM EST 09/13/2025 11:02 AM EST us Libertad Ramos V, DO LAB BLOOD BKR ORDERABLES Fin al Result [facility] [address] [place] [address] * (ABNORMAL) Comprehensive Metabolic Panel (CMP) (09/13/2025 10:36 AM EST) Only the most recent of3 resultswithin the time period is included. Sodium 141 136 - 145 mmol/L 09/13/2025 11:32 AM EST [facility] Potassium 4.5 3.4 - 5.1 mmol/L 09/13/2025 11:32 AM EST [facility] Chloride 106 98 - 107 mmol/L 09/13/2025 11:32 AM EST [facility] CO2 24 20 - 31 mmol/L 09/13/2025 11:32 AM EST [facility] Anion Gap 11 3 - 17 mmol/L 09/13/2025 11:32 AM EST [facility] BUN 14 6 - 23 mg/dL 09/13/2025 11:32 AM EST [facility] Creatinine 0.80 0.60 - 1.30 mg/dL 09/13/2025 11:32 AM EST [facility] eGFR 93 >59 mL/min/1.7 3m2 09/13/2025 11:32 AM EST [facility] Comment:Estimated glomerular filtration rate calculated using the CKD-EPI refit equation. Glucose 137(H) 70 - 99 mg/dL 09/13/2025 11:32 AM EST [facility] Calcium 9.2 8.5 - 10.5 mg/dL 09/13/2025 11:32 AM EST [facility] AST 21 <41 U/L 09/13/2025 11:32 AM EST [facility] ALT 21 <42 U/L 09/13/2025 11:32 AM EST [facility] Alkaline Phosphatase 75 40 - 130 U/L 09/13/2025 11:32 AM EST [facility] Bilirubin, Total 0.4 0.0 - 1.2 mg/dL 09/13/2025 11:32 AM EST [facility] Total Protein 6.6 6.4 - 8.3 g/dL 09/13/2025 11:32 AM EST [facility] Albumin 4.5 3.5 - 5.2 g/dL 09/13/2025 11:32 AM EST [facility] Globulin 2.1 1.9 - 4.1 g/dL 09/13/2025 11:32 AM EST [facility] Blood 09/13/2025 10:3 6 AM EST 09/13/2025 11:02 AM EST us Libertad Ramos V, DO LAB BLOOD BKR ORDERABLES Fin al Result [facility] [address] [place] [address] * Bullous Pemphigoid, BP180 and BP230 Antibodies, IgG (09/13/2025 10:36 AM EST) BP 180, S <2 <20 RU/mL 09/18/2025 2:50 PM EST [facility] [place] BP 230, S 12 <20 RU/mL 09/18/2025 2:50 PM EST [facility] [place] Comment: ADDITIONAL INFORMATION BP180 and BP230 are intended for in vitro diagnostic use as an aid in the diagnosis of pemphigoid and related entities, and should be interpreted in conjunction with other laboratory and clinical findings. This test has been modified from the surgical brace maker's instructions. Its performance characteristics were determined by [facility] in a manner consistent with CLIA requirements. This test has not been cleared or approved by the U.S. Food and Drug Administration. Blood 09/13/2025 10:3 6 AM EST 09/13/2025 11:17 AM EST us Britany Kaplan MD, MPH LAB BLOOD BKR ORDERABL ES Final Result [facility] [address] [place] [address], [facility] [phone] * (ABNORMAL) Differential, Manual (09/13/2025 10:36 AM EST) Neutrophils 84.1 % 09/13/2025 11:38 AM EST [facility] Bands 0.8 % 09/13/2025 11:38 AM EST [facility] Lymphocytes 4.5 % 09/13/2025 11:38 AM EST [facility] Monocytes 1.5 % 09/13/2025 11:38 AM EST [facility] Eosinophils 0.8 % 09/13/2025 11:38 AM EST [facility] Basophils 0.8 % 09/13/2025 11:38 AM EST [facility] Blasts 0.0 % 09/13/2025 11:38 AM EST [facility] Metamyelocytes 4.5 % 09/13/2025 11:38 AM EST [facility] Myelocytes 3.0 % 09/13/2025 11:38 AM EST [facility] Absolute Neutrophils 12.61(H) 1.92 - 7.60 K/uL 09/13/2025 11:38 AM EST [facility] Absolute Lymphocytes 0.67(L) 0.72 - 4.10 K/uL 09/13/2025 11:38 AM EST [facility] Absolute Monocytes 0.22 0.16 - 1.10 K/uL 09/13/2025 11:38 AM EST [facility] Absolute Eosinophils 0.12 0.00 - 0.50 K/uL 09/13/2025 11:38 AM EST [facility] Absolute Basophils 0.12 0.00 - 0.15 K/uL 09/13/2025 11:38 AM EST [facility] Absolute Blasts 0.00 <=0.00 K/uL 09/13/2025 11:38 AM EST [facility] Absolute Metamyelocytes 0.67(H) <=0.00 K/uL 09/13/2025 11:38 AM EST [facility] Absolute Myelocytes 0.45(H) <=0.00 K/uL 09/13/2025 11:38 AM EST [facility] Diff Type Manual 09/13/2025 11:38 AM EST [facility] Blood 09/13/2025 10:3 6 AM EST 09/13/2025 11:02 AM EST us Libertad Ramos V, DO LAB BLOOD BKR ORDERABLES Fin al Result Performing Organization Address City/State/[place] Co de Phone Number [facility] [address] [place] [address] * (ABNORMAL) CBC and Differential (09/13/2025 10:36 AM EST) WBC 14.85(H) 4.00 - 11.00 K/uL 09/13/2025 11:38 AM EST [facility] RBC 3.82(L) 4.50 - 5.90 M/uL 09/13/2025 11:38 AM EST [facility] Hemoglobin 10.3(L) 13.5 - 17.5 g/dL 09/13/2025 11:38 AM EST [facility] Hematocrit 33.2(L) 41.0 - 53.0 % 09/13/2025 11:38 AM EST [facility] MCV 86.9 80.0 - 100.0 fL 09/13/2025 11:38 AM EST [facility] MCH 27.0 27.0 - 31.0 pg 09/13/2025 11:38 AM EST [facility] MCHC 31.0(L) 32.0 - 36.0 g/dL 09/13/2025 11:38 AM EST [facility] MPV 10.6 8.4 - 12.0 fL 09/13/2025 11:38 AM EST [facility] RDW-CV 22.2(H) 11.5 - 14.5 % 09/13/2025 11:38 AM EST [facility] PLT 485(H) 150 - 450 K/uL 09/13/2025 11:38 AM EST [facility] NRBC 0.2(H) <=0.0 /100 WBCs 09/13/2025 11:38 AM EST [facility] Absolute NRBC 0.03(H) <=0.00 K cells/uL 09/13/2025 11:38 AM EST [facility] Absolute Neutrophils 09/13/2025 11:38 AM EST [facility] Comment:See Note: SEE MANUAL DIFF Diff Type Manual 09/13/2025 11:38 AM EST [facility] Blood 09/13/2025 10:3 6 AM EST 09/13/2025 11:02 AM EST us Libertad Ramos V, DO LAB BLOOD BKR ORDERABLES Fin al Result [facility] [address] [place] [address] * Red Blood Cell (RBC) Morphology (09/13/2025 10:36 AM EST) RBC Morphology Reviewed 09/13/2025 11:38 AM EST [facility] Polychromasia 1+ 09/13/2025 11:38 AM EST [facility] Schistocytes 1+ 09/13/2025 11:38 AM EST [facility] Tear Drops 3+ 09/13/2025 11:38 AM EST [facility] Blood 09/13/2025 10:3 6 AM EST 09/13/2025 11:02 AM EST us Libertad Ramos V, DO LAB BLOOD BKR ORDERABLES Fin al Result Performing Organization Address [facility] de Phone Number [facility] [address] [place] [address] * Thyroid Stimulating Hormone (TSH) (09/13/2025 10:36 AM EST) Only the most recent of2 resultswithin the time period is included. TSH 4.33 0.40 - 5.90 uIU/mL 09/13/2025 11:37 AM EST [facility] Blood 09/13/2025 10:3 6 AM EST 09/13/2025 11:02 AM EST us Libertad Ramos V, DO LAB BLOOD BKR ORDERABLES Fin al Result Performing Organization Address [facility] de Phone Number [facility] [address] [place] [address] * T4, Free (09/13/2025 10:36 AM EST) T4, Free 1.0 0.9 - 1.8 ng/dL 09/13/2025 11:37 AM EST [facility] Blood 09/13/2025 10:3 6 AM EST 09/13/2025 11:02 AM EST us Libertad Ramos V DO LAB BLOOD BKR ORDERABLES Fin al Result Performing Organization Address [facility] de Phone Number [facility] [address] [place] [phone] * XR CHEST PA AND LATERAL 2 VIEWS (08/10/2025 12:51 PM EDT) MGB IMG RECOMMENDATION COMMENT Left lower lobe pneumonia [facility] Anatomical Region Laterality Modality Chest Computed [...] clinician's provided indication for this examination in [facility]: Cough; history of CLL, polycythemia vera, and [...] clinician's provided indication for this examination in [facility]:Cough; history of CLL, polycythemia vera, and prostate [...] EDT) IRON 57(L) 59 - 158 ug/dL [facility] IRON BINDING CAPACITY 241 220 - 460 ug/dL [facility] TRANSFERRIN SATURAT. 24 14 - 50 % [facility] Blood 08/10/2025 12:5 0 PM EDT 08/10/2025 1:29 PM EDT Cathy Schmidt PA-C LAB BLOOD BKR PEDROFarrah MONTERROSOALLEY Final Result [facility] [address] [place] [address] * (ABNORMAL) CBC and differential (08/10/2025 12:50 PM EDT) Only the most recent of2 resultswithin the time period is included. WBC 18.62(H) 4.00 - 10.00 K/uL [facility] RBC 3.96(L) 4.50 - 6.40 M/uL [facility] HGB 10.2(L) 13.5 - 18.0 g/dL [facility] HCT 34.2(L) 40.0 - 54.0 % [facility] PLT 480(H) 150 - 450 K/uL [facility] MCV 86.4 80.0 - 100.0 fL [facility] MCH 25.8(L) 27.0 - 32.0 pg [facility] MCHC 29.8(L) 32.0 - 36.0 g/dL [facility] RDW 21.0(H) 11.5 - 14.5 % [facility] MPV 10.9 8.4 - 12.0 fL [facility] NRBC 0.20(H) 0 /100 WBCs [facility] ABSOLUTE NRBC 0.04(H) 0 K/uL [facility] DIFF METHOD MANUAL [facility] NEUTS (MANUAL) 90.8(H) 48.0 - 76.0 % [facility] LYMPHS 3.1(L) 18.0 - 41.0 % [facility] BANDS 2.3 0.0 - 3.0 % [facility] MONOS 0.8(L) 4.0 - 11.0 % [facility] EOSINOPHIL 0.7 0.0 - 5.0 % [facility] BASOPHIL 0.0 0.0 - 1.5 % [facility] BLASTS 0.0 0 % [facility] MYELOS 1.5(H) 0 % [facility] METAS 0.8(H) 0 % [facility] ABSOLUTE NEUTS 16.91(H) 1.92 - 7.60 K/uL [facility] ABSOLUTE LYMPHS 0.58(L) 0.72 - 4.10 K/uL [facility] ABSOLUTE BANDS 0.43(H) 0.00 - 0.30 K/uL [facility] ABSOLUTE MONOS 0.15(L) 0.16 - 1.10 K/uL [facility] ABSOLUTE EOS 0.13 0.00 - 0.50 K/uL [facility] ABSOLUTE BASO 0.00 0.00 - 0.15 K/uL [facility] ABSOLUTE BLASTS 0.00 0 K/uL [facility] ABSOLUTE MYELOS 0.28(H) 0 K/uL [facility] ABSOLUTE METAS 0.15(H) 0 K/uL [facility] ANISO Few [facility] POIKILOCYTOSIS MARKED [facility] POLYCHROME Few [facility] SCHISTOCYTES Moderate [facility] TEAR DROPS MARKED [facility] HYPOCHROMIA Few [facility] MACROCYTES Few [facility] MICROCYTES Moderate [facility] OVALOCYTES MARKED [facility] STOMATOCYTES Few [facility] Blood 08/10/2025 12:5 0 PM EDT 08/10/2025 1:29 PM EDT Cathy Schmidt PA-C LAB BLOOD BKR ORDE RABALLEY Final Result Performing Organization Address [facility] de Phone Number [facility] [address] [place] [address] * (ABNORMAL) Fungal culture (08/03/2025 1:25 PM EDT) Special Requests PLEASE CHECK CULTURE AND SENSITIVITY 08/03/2025 1:25 PM EDT [facility] Fungal Culture Only JOSÉ PARAPSILOSIS(A) 08/13/2025 12:04 PM EDT [facility] Other (Oral*) 08/03/2025 1:2 5 PM EDT 08/03/2025 4:38 PM EDT Comment:OUTER LIPS Narrative Organism Antibiotic Method Susceptibility José parapsilosis Fluconazole LOVE METHOD 16: Resistant José parapsilosis Voriconazole LOVE METHOD <=0.12: Susceptible Comment: Cathy Schmidt PA-C LAB MICROBIOLOGY C ULTURE ORDERABLES Final Result Performing Organization Address [facility]/[place] Co de Phone Number [facility] [address] [place] [id number] [facility] [address] [place] [address] * US ABDOMEN COMPLETE (ADULT) (07/14/2025 1:49 PM EDT) MGB IMG RECOMMENDATION COMMENT Differential : renal mass right lower pole cortical; renal right lower pole cortical lesion [facility] Anatomical Region Laterality Modality Abdomen Ultrasound Other [...] for our patients and providers by visiting [email or web address] ATTESTATION: Analia William, as teaching physician have [...] reports for our patients and providers by [email or web address] ATTESTATION: Analia William, as teaching physician have reviewed theimages, if any, for this patient's exam, and if necessary, have edited thereport originally created by Keith Masters. us Darinel De La Garza M.D. Leukemia Mike Ordaz MD IMG US ABDOMEN Final Result * Type and Screen (ABO,Rh,Antibody Screen) (07/14/2025 11:49 AM EDT) Expiration Date of Sample 07/17/2025 11:59 PM 07/14/2025 1:37 PM EDT [facility] Resulting Agency [facility] ABO Type A 07/14/2025 1:37 PM EDT [facility] Rh Type Positive 07/14/2025 1:37 PM EDT [facility] Antibody Screen Negative 07/14/2025 1:37 PM EDT [facility] Blood 07/14/2025 11:4 9 AM EDT 07/14/2025 12:06 PM EDT us Darinel De La Garza M.D. Leukemia Mike Ordaz MD LAB BLO OD BANK TEST ORDERABLES Final Result [facility] [address] [place] [id number] * (ABNORMAL) Hemoglobin A1c, sendout (06/14/2025 2:10 PM EDT) HEMOGLOBIN A1C 7.0(H) 4.0 - 5.6 % [facility] MED AND PAT+ Comment: (NOTE) Hemoglobin A1c values greater than or equal to 6.5 percent are diagnostic for diabetes mellitus. Diagnosis should be confirmed by repeat testing. In diabetic patients, HbA1c goals should be discussed with healthcare provider. Blood 06/14/2025 2:10 PM EDT 06/14/2025 2:15 PM EDT us Libertad Ramos V, DO LAB BLOOD ORDERABLES Final R esult [facility] DPT OF LAB MED AND PAT+ [address] [place] [address] * Hepatitis B surface antigen (01/02/2025 1:50 PM EST) HBV SURFACE ANTIGEN Nonreactive Nonreactive [facility] LIC# [id number] Comment:HBsAg not detected , does not exclude the possibility of exposure to HBV. Blood 01/02/2025 1:50 PM EST 01/02/2025 2:05 PM EST us Libertad Ramos V, DO LAB BLOOD BKR ORDERABLES Fin al Result Performing Organization Address [facility] Co de Phone Number [facility] LIC# [id number] [address] * Microalbumin/creatinine ratio, random urine (12/31/2023 11:24 AM EST) URINE MICROALBUMIN <1.2 0 - 2.3 mg/dL [facility] URINE CREATININE 78 mg/dL [facility] MICROALB/CRE RATIO NOT CALCULATED 0 - 20 mg/g Cre [facility] Comment:due to Microalbumin <1.2 Urine (Urine) 12/31/2023 11: 24 AM EST 12/31/2023 11:26 AM EST us Alla Escobar MD LAB URINE ORDERABLES Final Res ult Performing Organization Address City/[facility]/ZIP Co de Phone Number [facility] [address] [place] [address] * (ABNORMAL) Lipid panel (12/31/2023 11:14 AM EST) HDL 30 mg/dL [facility] Comment: Interpretation <40 mg/dL: Low HDL cholesterol (major risk factor for CHD) Greater than or equal to 60 mg/dL: High HDL cholesterol ( negative risk factor for CHD) HDL - cholesterol is affected by a number of factors, e.g. smoking, excerise, hormones, sex and age. CHOLESTEROL 117 0 - 240 mg/dL [facility] TRIGLYCERIDES 237(H) 30 - 160 mg/dL [facility] LDL 40(L) 50 - 129 mg/dL [facility] Comment: LDL levels in terms of risk for coronary heart disease: <100 mg/dL: Optimal 100-129 mg/dL: Near or above optimal 130-159 mg/dL: Borderline high 160-189 mg/dL: High >190 mg/dL: Very High CARDIAC RISK RATIO 3.9 3.4 - 5.0 [facility] Blood 12/31/2023 11:1 4 AM EST 12/31/2023 11:17 AM EST us Alla Escobar MD LAB BLOOD BKR ORDERABLES Final Result Performing Organization Address City/State/[place] Co de Phone Number [address] [address] from Last 3 Months or Most Recently Relevant to Health Maintenance Insurance [facility] MEDEX SUPPLEMENT MEDICARE PART A & B [employer] MEDEX SUPPLEMENT MEDICARE PART A & B [employer] MEDEX SUPPLEMENT lettrs CROSS MEDEX SUPPLEMENT [employer] MEDEX SUPPLEMENT MEDIC[place] PART A [place] [id number] [employer] MEDEX SUPPLEMENT MEDICARE PART A & B [employer]UE [employer] MEDEX SUPPLEMENT MEDICARE PART A & B [employer] MEDEX SUPPLEMENT [employer] MEDEX SUPPLE[place] [id number] Advance Directives For more information, please contact: [phone] (9AM - 5PM [place]/[facility], Thursday-Thursday) * Full Code (Latest Code Status on File) Date Activated Date Inactivated Comments 03/29/2025 4:35 PM Question Answer Comments Code Status Confirmed With: Patient Care Teams Roofing Machine Tender Relationship Specialty Start Date End Date Mariely Vargas MD [address] [address] PCP - General Internal Medicine 03/29/24 Lindsay Perales MD [address] [place] [address] [email or web address] Radiation Oncology 07/12/24 Libertad Ramos DO [address] [place] [address] [email or web address] Medical Oncology 12/22/24 Maribel Nur MD, MPH [address] [place] [address] Loida@[facility] Otolaryngology 12/22/24 Kezia Webb MD [address] [place] [address] meeta@[email or web address] Dermatology 12/22/24 Lor Bal MD [address] [place] [phone] Wendy Chavarria@[email or web address] Internal Medicine 12/22/24 Mynor Coats MD [address] [address] Dermatology 01/02/25 Eliseo Rand, PHILIPPE [address] [place] [address] Zoe@[facility] Associate Infusion Nurse 01/02/25 Grover Barbosa MD [address] [place] [address] [place] [address] Public Health Epidemiologist Pulmonary Disease 01/05/25 Neville Torres MD [address] [address] [email or web address] Urology 01/27/25 Kya Diaz RN [address] [address] Silvia@[email or web address] Associate Infusion Nurse 01/23/25 Yvonne Lewis [address] [place] [address] janette@[email or web address] Recreation Engineer 04/13/25 Brennon Delcid MD, MPH [address] [place], [place] [address]- [address] [address] Richard@[email or web address] Radiation Oncology 06/02/25 Cathy Schmidt PA-C [address] [place] [address] [place] [address] [email or web address] Physician [employer] Software Engineer 06/14/25 Additional Source Comments The information contained in this document represents components of the legal health record. It is not the complete legal health record.[facility]
--- OUTSIDE RECORDS SUMMARY | 2025-09-20 10:40 | XMS_ITS | Encounter Summary ---
Author Organization [facility] Address [address] [facility] [address] [place] [address] Phone Care Team Providers Care Rn Forensic Name Role Phone Mariely Vargas MD Primary Care Provider Lindsay Perales MD Unavailable [phone] Richard Eden DO, Justine Unavailable [phone] Maribel Nur MD, MPH Unavailable Kezia Webb MD Unavailable [phone] Lor Bal MD Unavailable [phone] Mynor Coats MD Unavailable Eliseo Rand RN Unavailable Ayaka Grier@[facility].SUZAN [employer].[facility] Grover Barbosa MD Unavailable Neville Torres MD Unavailable + [phone] Kya Diaz RN Unavailable Naga Raygoza@[facility].ELICIA HERBERT.[facility] Yvonne Lewis Unavailable [phone] Brennon Delcid MD, MPH Unavailable + Cathy Schmidt PA-C Unavailable + Encounter Details Date Type Department Care Team (Late st Contact Info) Description 06/07/2025 Transcribe Orders [facility] Interventional [facility] [address] [place] [address] Mariely Vargas MD [address] [facility] [address] [place] [address] Social History Tobacco Use Types Packs/Day Years [...] Procedure Pass Erika Lank Imaging Department, [facility], MRI [address] [place] [address], [place] [address]1 [place] [address] 10/04/2025 1:20 PM EST Office Visit [facility] [address] [place] [address] Alla Escobar MD [address] [place] [address] 3rd [place] [address] 10/12/2025 2:30 PM EST Office Visit [facility], [address], 5th [place] [address] Sasha Strickland PA-C [address] [place] [address] Neisha @[facility] Libertad Ramos DO [address] [place] [address] [email or web address] 10/12/2025 3:30 PM EST Office Visit [facility], [address], 5th [place] [address] Libertad Ramos DO [address] [place] [address] [email or web address] 10/26/2025 11:40 AM EST Appointment Erika Lank Imaging Department, [facility], MRI [address] [facility], [place] [address]1 [place] [address] Libertad Ramos DO [address] [place] [address] [email or web address] 11/07/2025 10:30 AM EST Blood Draw Laboratory Services, [address], 2nd [place] [address] Darinel Ordaz M.D. Leukemia MD Mike [address] [place], [place] [id number] [place] [address] Elena@[email or web address] 11/07/2025 11:30 AM EST Office Visit [facility], Division of Hematologic Oncology, [address], 8th [place] [address] Darinel Ordaz M.D. Leukemia MD Mike [address] [place], [place] [id number] [place] [address] Elena@[email or web address] 11/30/2025 11:00 AM EST Office Visit Oral Medicine, [address], 11th [place] [address] Hao Robertson DMD, PhD [address] [place] [address] [email or web address] 12/15/2025 11:00 AM EST Office Visit [facility], [address], 11th [place] [address] Maribel Nru MD, MPH [address] [place] [address] Loida@[facility] 12/15/2025 12:00 PM EST Blood Draw [facility] Imaging Department, [facility], Imaging Ychha-xn-Zvjf [address] [facility], [place] [address]1 [place] [address] Libertad Ramos DO [address] [place] [address] [email or web address] 12/15/2025 1:30 PM EST Appointment [facility] Imaging Department, [facility], PET/CT [address] [place] [address] Libertad Ramos DO [address] [place] [address] [email or web address]@[email or web address] 12/21/2025 1:00 PM EST Office Visit [facility], [address], 5th [place] [address] Libertad Ramos DO [address] [place] [address] [email or web address] 03/13/2026 1:00 PM EDT Office Visit [facility], [facility] [address] [facility], 11th [place] [address] Cathy Schmidt PA-C 75 [facility] [place] [address] [email or web address] Maribel Nur MD, MPH [address] [place] [address] Loida@[email or web address] documented as of this encounter Visit Diagnoses Not on filedocumented in this encounter Care Teams Rn Forensic Relationship Specialty Start Date End Date Mariely Vargas MD [address] [address] PCP - General Internal Medicine 03/29/24 Lindsay Perales MD [address] [place] [address] [email or web address] Radiation Oncology 07/12/24 Libertad Ramos DO [address] [place] [address] [email or web address] Medical Oncology 12/22/24 Maribel Nur MD, MPH [address] [place] [address] Loida@[facility] Otolaryngology 12/22/24 Kezia Webb MD [address] [place] [address] [email or web address] Dermatology 12/22/24 Lor Bal MD [address] [place] [phone] Wendy Chavarria@[facility] Internal Medicine 12/22/24 Mynor Coats MD [address] [address] Dermatology 01/02/25 Eliseo Rand RN 450 [place] [address] Zoe@[facility] Associate Infusion Nurse 01/02/25 Grover Barbosa MD [address] [place] [address] [place] [address] Supervisor Wool Shearing Pulmonary Disease 01/05/25 Neville Torres MD [address] [address] [email or web address] Urology 01/27/25 Kya Diaz RN [address] [address] Silvia@[email or web address] Associate Infusion Nurse 01/23/25 Yvonne Lewis [address] [place] [address] janette@[email or web address] .[facility] Theatre Director 04/13/25 Brennon Delcid MD, MPH [address] [place] [address], [facility]- [address] [address] [email or web address] Radiation Oncology 06/02/25 Cathy Schmidt PA-C [address] [place] [address] [place] [address] [email or web address] Physician Logistics Tech 06/14/25 documented as of this encounter Additional Source Comments The information contained in this document represents components of the legal health record. It is not the complete legal health record.[facility]
--- OUTSIDE RECORDS SUMMARY | 2025-09-20 10:40 | XMS_ITS | Encounter Summary ---
Author Organization [facility] Address [address] [facility] [address] [place] [address] Phone Care Team Providers Care C Programmer Name Role Phone Mariely Vargas MD Primary Care Provider Lindsay Perales MD Unavailable [phone] Richard Eden DO, Justine Unavailable [phone] Maribel Nur MD, MPH Unavailable Kezia Webb MD Unavailable [phone] Lor Bal MD Unavailable [phone] Mynor Coats MD Unavailable Eliseo Rand RN Unavailable Ayaka Grier@[email or web address] [employer].[facility] Grover Barbosa MD Unavailable [phone] Neville Torres MD Unavailable + [phone] Kya Diaz RN Unavailable Naga Raygoza@[email or web address] HERBERT.[facility] Yvonne Lewsi Unavailable [phone] Brennon Delcid MD, MPH Unavailable + Cathy Schmidt PA-C Unavailable + Encounter Details Date Type Department Care Team (Late st Contact Info) Description 03/27/2025 Procedure Pass [facility] Echocardiography [address] [place] [address] Social History Tobacco Use Types Packs/Day Years [...] 5:56 PM EDT Malgorzata Sneed RN * [place] Suicide Severity Rating Scale (Screener/Recent Self-Report) Question Answer Date of Assessment Author 1. Wish to be (Past 1 Month) No 03/29/2025 5:56 PM EDT Keisha Delgado RN 2. Non-Specific Active Suici saran Thoughts (Past 1 Month) No 03/29/2025 5:56 PM EDT Justine Delgado RN 6. Suicidal Behavior (Lifetime) No 5:56 PM EDT Malgorzata Delgado RN documented as of this encounter Plan of Treatment Upcoming Encounters Date Type Department Care Team (Late st Contact Info) Description 07/24/2025 Procedure Pass Erika Lank Imaging Department, [facility], MRI [address] [facility], Floor L1 [place] [address] 10/04/2025 1:20 PM EST Office Visit [facility] [address] [place] [address] Alla Escobar MD [address] [place] [address] 3rd [place] [address] 10/12/2025 2:30 PM EST Office Visit [facility], [facility] [address] [facility], 5th [place] [address] BrooklynSasha Arvizu PA-C 450 [place] [address] Neisha @[facility] Libertad Ramos DO [address] [place] [address] [email or web address] 10/12/2025 3:30 PM EST Office Visit [facility], [address], 5th [place] [address] Libertad Ramos DO [address] [place] [address] [email or web address]@[facility] 10/26/2025 11:40 AM EST Appointment Erika Lank Imaging Department, [facility], MRI [address] [facility], Floor [address]1 [place] [address] Libertad Ramos DO [address] [place] [address] [email or web address] 11/07/2025 10:30 AM EST Blood Draw Laboratory Services, [address], 2nd [place] [address] Darinel Ordaz M.D. Leukemia [facility] [address] [place] [address] [place] [address] Elena@[facility] 11/07/2025 11:30 AM EST Office Visit [facility] for Le[facility], Division of Hematologic Oncology, [address], 8th [place] [address] Darinel Ordaz M.D. Leukemia [facility], [address] [place] [address] [place] [address] Elena@[facility] 11/30/2025 11:00 AM EST Office Visit Oral Medicine, [address], 11th [place] [address] Hao Robertson DMD, PhD [address] [place] [address] [email or web address] 12/15/2025 11:00 AM EST Office Visit [facility], [address], 11th [place] [address] Maribel Nur MD, MPH [address] [place] [address] Loida@[facility] 12/15/2025 12:00 PM EST Blood Draw [facility] Imaging Department, [facility], Imaging Fapnm-zx-Ngxk [address] [facility], Floor [address]1 [place] [address] Libertad Ramos DO [address] [place] [address] [email or web address]@[facility] 12/15/2025 1:30 PM EST Appointment [facility] Imaging Department, [facility], PET/CT [address] [place] [address] Libertad Ramos DO [address] [place] [address] [email or web address] 12/21/2025 1:00 PM EST Office Visit [facility], [facility] [address] [facility], 5th [place] [address] Libertad Ramos DO 450 [place] [address] [email or web address] 03/13/2026 1:00 PM EDT Office Visit [facility], [facility] [address] [facility], 11th [place] [address] Cathy Schmidt PA-C [address] [place] [address] [place] [address] valencia@[email or web address] Maribel Nur MD, MPH [address] [place] [address] Loida@[facility] documented as of this encounter Visit Diagnoses Not on filedocumented in this encounter Care Teams C Programmer Relationship Specialty Start Date End Date Mariely Vargas MD [address] [place] [address] PCP - General Internal Medicine 03/29/24 Lindsay Perales MD [address] [place] [address] [email or web address] Radiation Oncology 07/12/24 Libertad Ramos DO [address] [place] [address] [email or web address] Medical Oncology 12/22/24 Maribel Nur MD, MPH [address] [place] [address] [place] [address] Loida@[facility] Otolaryngology 12/22/24 Kezia Webb MD [address] [place] [address] meeta@[facility] Dermatology 12/22/24 Lor Bal MD [address] [place] [phone] Wendy Chavarria@[email or web address] Internal Medicine 12/22/24 Mynor Coats MD [address] [place] [address] Dermatology 01/02/25 Eliseo Rand RN [address] [place] [address] Zoe@[facility] Associate Infusion Nurse 01/02/25 Grover Barbosa MD [address] [place] [address] [place] [address] Oil Developer Pulmonary Disease 01/05/25 Neville Torres MD [address] [place] [address] Urology 01/27/25 Kya Diaz, PHILIPPE [address] [address] Silvia@[email or web address] Associate Infusion Nurse 01/23/25 Yvonne Lewis [address] [place] [address] janette@[email or web address] Supervisor Cereal 04/13/25 Brennon Delcid MD, MPH [address] [place] [address], ASB1- L2 [place] [address] Richard@[email or web address] Radiation Oncology 06/02/25 Cathy Schmidt PA-C [address] [place] [address] [place] [address] [email or web address] Physician Parking Patroller 06/14/25 documented as of this encounter Additional Source Comments The information contained in this document represents components of the legal health record. It is not the complete legal health record.[facility]
--- OUTSIDE RECORDS SUMMARY | 2025-09-20 10:40 | XMS_ITS ---
Author Organization [facility] Address [address] [place] [address] Phone Care Team Providers Care Production Tool Engineer Name Role Phone Mariely Vargas MD Primary Care Provider Active Problems Problem Noted Date Diagnosed Date [...] [facility] V24, [facility] V28) 022 Post-phlebitic syndrome 07/29/2022 Pulmonary [...]
--- OUTSIDE RECORDS SUMMARY | 2025-09-20 10:41 | XMS_ITS | Encounter Summary ---
Author Organization [facility] Address [address] [facility] [address] [place] [address] Phone Care Team Providers Care Nuclear Officer Name Role Phone Mariely Vargas MD Primary Care Provider Lindsay Perales MD Unavailable [phone] Richard Eden DO, Justine Unavailable [phone] Maribel Nur MD, MPH Unavailable Kezia Webb MD Unavailable [phone] Lor Bal MD Unavailable +[phone] Mynor Coats MD Unavailable Eliseo Rand RN Unavailable Ayaka [email or web address].[email or web address] Grover Barbosa MD Unavailable Neville Torres MD Unavailable + [phone] Kya Diaz RN Unavailable Naga [email or web address].[email or web address] Yvonne Lewis Unavailable [phone] Brennon Delcid MD, MPH Unavailable + Cathy Schmidt PA-C Unavailable + Encounter Details Date Type Department Care Team (Late st Contact Info) Description 03/29/2025 Prep for Surgery [facility] PRE/PACU [address] [place] [address] Maribel Nur MD, MPH [address] [place] [address] [email or web address] Social History Tobacco Use Types Packs/Day [...] 5:56 PM EDT Malgorzata Sneed RN * [place] Suicide Severity Rating Scale (Screener/Recent Self-Report) Question [...] 07/24/2025 Procedure Pass [facility]rika L[facility] Imaging Department, [facility] [place], MRI [address] [facility], Floor L1 [place] [address] 10/04/2025 1:20 PM EST Office Visit [facility] [address] [place] [address] Alla Escobar MD [address] [place] [address] 10/12/2025 2:30 PM EST Office Visit [facility], [address], 5th [place] [address] Sasha Strickland PA-C [address] [place] [address] Neisha @[email or web address] Libertad Ramos DO [address] [place] [address] [email or web address] 10/12/2025 3:30 PM EST Office Visit [facility], [address], 5th [place] [address] Libertad Ramos DO [address] [place] [address] [email or web address] 10/26/2025 11:40 AM EST Appointment [facility] Imaging Department, [facility], MRI [address] [place] [address], Floor L1 [place] [address] Libertad Ramos DO [address] [place] [address] [email or web address] 11/07/2025 10:30 AM EST Blood Draw Laboratory Services, [address], 2nd [place] [address] Darinel Ordaz M.D. Leukemia [facility], [address] [place] [address] [place] [address] [email or web address] 11/07/2025 11:30 AM EST Office Visit [facility], Division of Hematologic Oncology, [facility] [address] [facility], 8th [place] [address] Darinel Ordaz M.D. [facility]ukemia [facility] [address] [place] [address] [email or web address] 11/30/2025 11:00 AM EST Office Visit Oral Medicine, [address], 11th [place] [address] Hao Robertson DMD, PhD [address] [place] [address] [email or web address] 12/15/2025 11:00 AM EST Office Visit [facility], [address], 11th [place] [address] Maribel Nur MD, MPH [address] [place] [address] [email or web address] 12/15/2025 12:00 PM EST Blood Draw [facility] Imaging Department, [facility], Imaging Mdpjf-ec-Hfxa [address] [facility], Floor L1 [place] [address] Libertad Ramos DO [address] [place] [address] [email or web address] 12/15/2025 1:30 PM EST Appointment [facility] Imaging Department, [facility], PET/CT 450 [place], [place] Libertad Ramos DO 450 [place] [address] [email or web address] 12/21/2025 1:00 PM EST Office Visit [facility], [facility] [address] [facility], 5th [place] [address] Libertad Ramos V DO 450 [place] [address] [email or web address] 03/13/2026 1:00 PM EDT Office Visit [facility], [address], 11th [place] [address] Cathy Schmidt PA-C [address] [place] [address] [place] [address] [email or web address] Maribel Nur MD, MPH [address] [place] [address] [email or web address] documented as of this encounter Visit Diagnoses Not on filedocumented in this encounter Care Teams Nuclear Officer Relationship Specialty Start Date End Date Mariely Vargas MD [address] [place] [address] PCP - General Internal Medicine 03/29/24 Lindsay Perales MD [address] [place] [address] [email or web address] Radiation Oncology 07/12/24 Libertad Ramos DO [address] [place] [address] [email or web address] Medical Oncology 12/22/24 Maribel Nur MD, MPH [address] [place] [address] [email or web address] Otolaryngology 12/22/24 Kezia Webb MD [address] [place] [address] [email or web address] Dermatology 12/22/24 Lor Bal MD [address] [place] [phone] Wendy Chavarria@[email or web address] Internal Medicine 12/22/24 Mynor Coats MD [facility] [address] Dermatology 01/02/25 Eliseo Rand RN [address] [place] [address] [email or web address] Associate Infusion Nurse 01/02/25 Grover Barbosa MD [address] [place] [address] [place] [address] Dimension Quarry Supervisor Pulmonary Disease 01/05/25 Neville Torres MD [facility] [address] [address] Urology 01/27/25 Kya Diaz, RN [address] [facility] 103 [place] [address] [email or web address] Associate Infusion Nurse 01/23/25 Yvonne Lewis [address] [place] [address] [email or web address] Assistant Merchandise Manager 04/13/25 Brennon Delcid MD, MPH [address] [place] [address], ASB1- L2 [place] [address] [email or web address] Radiation Oncology 06/02/25 Cathy Schmidt PA-C [address] [place] [address] [place] [address] Physician Sap Basis Administrator 06/14/25 documented as of this encounter Additional Source Comments The information contained in this document represents components of the legal health record. It is not the complete legal health record.[facility]
--- OUTSIDE RECORDS SUMMARY | 2025-09-20 10:41 | XMS_ITS | Encounter Summary ---
Author Organization [facility] Address [address] [facility] [address] [place] [address] Phone Care Team Providers Care Stuffing Machine Operator Name Role Phone Mariely Vargas MD Primary Care Provider [phone] Lindsay Perales MD Unavailable Richard Eden DO, Justine Unavailable [phone] Maribel Nur MD, MPH Unavailable Kezia Webb MD Unavailable [phone] Lor Bal MD Unavailable [phone] Mynor Coats MD Unavailable Eliseo Rand RN Unavailable Ayaka [email or web address] [place].[facility] Grover Barbosa MD Unavailable Neville Torres MD Unavailable + [phone] Kya Diaz RN Unavailable Naga [email or web address] Yvonne Lewis Unavailable [phone] Brennon Delcid MD, MPH Unavailable + Cathy Schmidt PA-C Unavailable + Encounter Details Date Type Department Care Team (Late st Contact Info) Description 08/15/2025 Orders Only [facility] Department of Radiation Oncology [address] [facility], Floor L2 [place] [address] Cathy Schmidt PA-C [address] [facility] [place] [address] [email or web address] Pneumonia of both lungs due to infectious [...] 07/24/2025 Procedure Pass Erika Lank Imaging Department, [facility], MRI [address] [place] [address], Floor L1 [place] [address] 10/04/2025 1:20 PM EST Office Visit [facility] [address] [place] [address] Alla Escobar MD [address] [place] [address] 3rd [place] [address] 10/12/2025 2:30 PM EST Office Visit [facility], [address], 5th [place] [address] Sasha Strickland PA-C [address] [place] [address] Neisha @[email or web address] Libertad Ramos DO [address] [place] [address] [email or web address] 10/12/2025 3:30 PM EST Office Visit [facility], [address], 5th [place] [address] Libertad Ramos V DO [address] [place] [address] [email or web address] 10/26/2025 11:40 AM EST Appointment Erika Lank Imaging Department, [facility], MRI [address] [place] [address], Floor L1 [place] [address] Libertad Ramos V DO [address] [place] [address] [email or web address] 11/07/2025 10:30 AM EST Blood Draw Laboratory Services, [address], 2nd [place] [address] Darinel Ordaz M.D. Leukemia MD Mike [address] [place], [place] [address] [place] [address] [email or web address] 11/07/2025 11:30 AM EST Office Visit [facility], Division of Hematologic Oncology, [address], 8th [place] [address] Darinel Ordaz M.D. Leukemia MD Mike [address] [place], [place] [address] [place] [address] [email or web address] 11/30/2025 11:00 AM EST Office Visit Oral Medicine, [address], 11th [place] [address] Hao Robertson DMD, PhD 75 [place], [place] [email or web address] 12/15/2025 11:00 AM EST Office Visit [facility], [address], 11th [place] [address] Maribel Nur MD, MPH 45 [place], [place] [email or web address]@[email or web address] 12/15/2025 12:00 PM EST Blood Draw [facility] Imaging Department, [facility], Imaging Lkjmp-ue-Kymh [address] [place] [address], Floor [address]1 [place] [address] Libertad Ramos DO [address] [place] [address] [email or web address] 12/15/2025 1:30 PM EST Appointment [facility] Imaging Department, [facility], PET/CT [address] [place] [address] Libertad Ramos DO [address] [place] [address] [email or web address] 12/21/2025 1:00 PM EST Office Visit [facility], [address], 5th [place] [address] Libertad Ramos DO [address] [place] [address] [email or web address] 03/13/2026 1:00 PM EDT Office Visit [facility], [facility] [address] [facility], 11th [place] [address] Cathy Schmidt PA-C [address] [place] [address] [place] [address] [email or web address] Maribel Nur MD, MPH [address] [place] [address] [email or web address] documented as of this encounter Visit Diagnoses Diagnosis Pneumonia of both lungs due to infectious organism, unspecified part of lung- Primary documented in this encounter Care Teams Stuffing Machine Operator Relationship Specialty Start Date End Date Mariely Vargas MD [address] [place] [address] PCP - General Internal Medicine 03/29/24 Lindsay Perales MD [address] [place] [address] [email or web address] Radiation Oncology 07/12/24 Libertad Ramos DO [address] [place] [address] [email or web address] Medical Oncology 12/22/24 Maribel Nur MD, MPH [address] [place] [address] [email or web address] Otolaryngology 12/22/24 Kezia Webb MD [address] [place] [address] [address], [place] [address] [email or web address] Dermatology 12/22/24 Lor Bal MD [address] [place] [phone] Wendy [email or web address] Internal Medicine 12/22/24 Mynor Coats MD [address] [place] [address] Dermatology 01/02/25 Eliseo Rand RN [address] [place] [address] [email or web address] Associate Infusion Nurse 01/02/25 Grover Barbosa MD [address] [place] [address] [place] [address] Tow Operator Pulmonary Disease 01/05/25 Neville Torres MD [address] [place] [address] Urology 01/27/25 Kya Diaz, PHILIPPE [address] [address] [email or web address] Associate Infusion Nurse 01/23/25 Yvonne Lewis [address] [place] [address] [email or web address] .[email or web address] Truck Packer 04/13/25 Brennon Delcid MD, MPH [address] [place] [address], ASB1- [address] [address] [email or web address] Radiation Oncology 06/02/25 Cathy Schmidt PA-C [address] [place] [address] [place] [address] Physician Garden Machinery Mechanic 06/14/25 documented as of this encounter Additional Source Comments The information contained in this document represents components of the legal health record. It is not the complete legal health record.[facility]
--- OUTSIDE RECORDS SUMMARY | 2025-09-20 10:41 | XMS_ITS | Clinical Summary ---
Author Organization [facility] Address [address] [place] [address] Care Team Providers Care Motion Picture Narrator Name Role Phone Mariely Vargas MD Primary Care Provider [phone] Allergies Active Allergy Reactions Criticality Noted Date [...] age to complete this topic Care Teams Motion Picture Narrator Relationship Specialty Start Date End Date Mariely Vargas MD [address] [place], [place] PCP - General Internal Medicine 05/29/22
--- OUTSIDE RECORDS SUMMARY | 2025-09-20 10:41 | XMS_ITS | Continuity of Care Document ---
Author Organization [facility], [facility] Address [address] [place] [address] Care Team Providers Care Production Inspector Name Role Phone RHONAYvon TROY Primary Care Provider [phone] TROY LOBO Referring Provider [phone] Assessment Encounter Date Assessment Date Assessment LastModified by Organization Details LastModified Time 08/28/2025 08/28/2025 The left pinna, external auditory [...] in 3 months for his next cleaning [email or web address] Not available 08/28/2025 09:41:54 Plan of Treatment [...] instructions recorded. Reason for Referral None Reported. Problems Name Problem SNOMED Code Status Onset Date Resolution Date Notes Provider Name and Address Organization Details Recorded Time Hypertrop hy of tonsils 29940296 Active 2017 Hypertrop hy of tonsils; Note: Date Diagnosed : 06/01/2018 12:08 PM (J35.1) Not Available [facility] 4 02:15:50 Sensorine ural hearing loss of bilateral ears 375677114 Active 2017 Sensorine ural hearing loss, bilateral ; Note: Date Diagnosed : 06/11/2018 10:24 AM (H90.3) Not Available [facility] 4 02:15:48 Tinnitus of left ear 16965241261 06 Active 2017 Tinnitus, left ear; Note: Date Diagnosed : 06/11/2018 12:44 PM (H93.12) Not Available [facility] 4 02:15:32 Obstructi ve sleep apnea syndrome 28674958 Active 2019 Obstructi ve sleep apnea (adult) (pediatri c); Note: Date Diagnosed : 04/04/2020 9:58 AM (G47.33) Not Available [facility] 4 02:15:29 Bleeding from nose 483837585 Active 2019 Epistaxis ; Note: Date Diagnosed : 04/04/2020 9:58 AM (R04.0) Not Available [facility] 4 02:15:28 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 RAMBO DE LA ROSA MD [address] [facility],[place] [address], [place], [address] , [facility] 4 22:17:11 Actinic keratosis 793355954 Active 2023 RAMBO DE LA ROSA MD [address] [facility],[place] [address], [address] , [facility] 4 22:17:19 Hypothyro idism 14093713 Active 2023 RAMBO DE LA ROSA MD [address] [facility],[place] [address], [address] , [place] - [facility] 4 22:17:30 Lesion of skin of left ear 10526969113 550543 Active 2023 RAMBO DE LA ROSA MD [address] [facility], [place], [address] , [facility] - [facility] 4 10:46:45 Squamous cell carcinoma of skin of ear 865387786 Active 2023 RAMBO DE LA ROSA MD [address] [facility],[address], [place], [address] , [facility] - [facility] 4 20:24:50 Acute otitis externa 18286221 Active 2023 RAMBO DE LA ROSA MD [address] [facility],[address], [place], [address] , [facility] - [facility] 4 15:18:21 Acute otitis externa 08332120 Active 2023 RAMBO DE LA ROSA MD [address] [facility],[address] [facility], [place], [place], [address] , [facility] - [facility] 4 15:19:13 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 339959261 Active 2023 RAMBO DE LA ROSA MD [address] [facility], [place], [place], [address] , [facility] - [facility] 4 15:20:44 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 90905690 Active 2023 RAMBO DE LA ROSA MD [address] [facility],[address], [place], [address] , [place] - [facility] 4 22:23:07 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 Procedures Surgical History Date Name Laterality Status Provider Name and Address Organization Details Recorded Time 08/28/20 25 Debridement of Ear canal left completed ROGERS OLIVEIRA MD [address] [facility],[place] [address], [place], [address], [facility] 08/27/2025 21:05:32 02/24/20 25 Debridement of Ear canal left completed ROGERS OLIVEIRA MD [address] [facility],[address], [address], [facility] 02/23/2025 10:19:32 09/15/20 24 Comp Audio with Tymps - 81244 & 02286 completed LUIGI SPENCER [address] [facility],[address], [address], [facility] 09/15/2024 08:41:47 09/15/20 24 Cerumen removal with microscope left completed ROGERS OLIVEIRA MD [address] [facility],[address], [address], [facility] 09/15/2024 08:29:59 04/08/20 24 General Biopsy completed RAMBO WOOTEN MD [address] [facility],[address], [address], [facility] 04/08/2024 10:46:30 Prostatectomy (turp) completed Angelita Lopez [facility] 04/08/2024 10:16:10 Imaging Results None recorded. Procedure Notes None recorded. Medical Equipment None Reported. Allergies Allergen ID Allergen Name Allergen Category Reaction Reaction Severity Criticality Documentation Date Start Date Code Code System Note Provider Name and Address Organization Details Recorded Time 332056 doxycycli ne Not available Not available Not available Not available 06/15/2024 3640 RxNorm Milly hahn [facility] 15:07:05 01365 penicilli n G Not available other Not available Not available 03/22/2024 7980 RxNorm React ion: unkno wn, unspe cifie d;; Not Available [facility] 4 00:52:56 [address]2500 Cipro medicatio n diarrhea Not available Not available 03/22/2024 49583 3 RxNorm React ion: unkno wn, unspe cifie d;; Not Available [facility] 4 00:53:05 Medications Name Sig Start Date [...] mg tablet 09/15 completed Medicati on ID: [id number] B rand Name: loperami de Send Method: [...] mg tablet 06/15 completed Medicati on ID: [id number] D uration Value: 90 Brand Name: allopuri [...] layed release 06/15 completed Medicati on ID: [id number] B rand Name: aspirin Send Method: E-Prescr [...] topical cream 06/15 completed Medicati on ID: [id number] D uration Value: 30 Brand Name: metronid [...] nasal spray 04/08 completed Medicati on ID: [id number] D uration Value: 30 Brand Name: ipratrop ium bromide Send Method: E-Prescr ibed Sub s Allowed: subs OK Speci al Instruct ion: USE 2 SPRAYS INTO EACH NOSTRILS 4 TIMES DAILY Me dication GenericN dakotah: ipratrop ium bromide Medicati on ID: [id number] D uration Value: 30 Brand Name: ipratrop [...] % lotion 06/15 completed Medicati on ID: [id number] D uration Value: 30 Brand Name: clindamy [...] xtended release 02/23 completed Medicati on ID: [id number] B rand Name: Vitamin C Send Method: [...] nasal spray 06/15 completed Medicati on ID: [id number] B rand Name: savita webb Send Method: E-Prescr ibed Sub s Allowed: subs OK Medic ationGen ericName : fredsti ne Not Available Not Available Not Available OxyContin 20 mg tablet,cr ush resistant ,extended release TAKE 1 TABLET BY MOUTH EVERY 12 HOURS. DO NOT CRUSH, CHEW, OR SPLIT. MAX DAILY AMOUNT: 40 MG 08/28 completed Not Available Not Available Not [...] Updated DateTime 08/28/2025 175.26 cm 28.1 kg/m2 09016.55 g Angelita Lopez [place] - [facility] 08/28/2025 09:15:06 Social History None recorded. Functional [...] Disorder N Anesthesia Complications N Heart Attack ([place]) N Other Skin Condition N Diabetes Y Rhinitis Y Bleeding Disorder Y Food Allergy N Arthritis N Hearing Loss N Hyperlipidemia N Cancer Y Stroke N Dementia N Nasal polyps N Asthma N High Cholesterol N Sleep Disorder Y GERD/Reflux Y Liver Disease N Headaches N Fibromyalgia N Hypertension Y Speech Delay N Kidney Disease Y Past Encounters Encounter ID Performer Location Encounter Start Date Encounter Closed Date Diagnosis/Indication Diagnosis SNOMED-CT Code Diagnosis ICD10 Code Diagnosis IMO Codes Diagnosis Note [id number] ROGERS OLIVEIRA MD [facility] of [address] [address] 08/28/2025 09:05:32 08/28/2025 09:43:24 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 14225519 H95.812 Squamous c ell carcinoma of skin of ear 800865169 C44.229 Impacted c erumen in left ear 0017601040 053637 H61.22 History of radiation therapy 830771417 Z92.3 348216 Health Concerns Section Related Observation LastModified by Organization Detai ls LastModified Time None Recorded Concern Status LastModified by Organization Details LastModified Time None Recorded Payers Encounter Date Sequence Insurance Name Policy Number Policy Ryan Covered Member ID Ryan Member ID Guarantor Name 08/28/2025 2 [place] [id number] Clay Barron [id number] Clay Barron 08/28/2025 1 [place] [employer] Clay Barron [id number] Clay Barron Notes Date Note Type Note Provider Name and Address Organization Details Recorded Time 08/28/2025 text/html Patient underwent Mohs resection of [...] note, the patient has been going to [facility] for further care. He was [...] hearing in the left. ROGERS OLIVEIRA MD [address] [place] [address], [phone], [facility] - [facility] 08/28/2025 09:42:34
--- OUTSIDE RECORDS SUMMARY | 2025-09-20 10:41 | XMS_ITS | Encounter Summary ---
Author Organization sambaash [facility] Address [address] [facility] [address] [place] [address] Phone Care Team Providers Care Pole Peeling Machine Operator Name Role Phone Mariely Vargas MD Primary Care Provider Lindsay Perales MD Unavailable Richard Eden DO, Justine Unavailable [phone] Maribel Nur MD, MPH Unavailable Kezia Webb MD Unavailable [phone] Lor Bal MD Unavailable [phone] Mynor Coats MD Unavailable Eliseo Rand RN Unavailable Ayaka Grier@[email or web address] Coppola.[facility] Grover Barbosa MD Unavailable [phone] Neville Torres MD Unavailable + [phone] Kya Diaz RN Unavailable Naga Raygoza@[email or web address] HERBERT.[facility] Yvonne Lewis Unavailable [phone] Brennon Delcid MD, MPH Unavailable + Cathy Schmidt PA-C Unavailable + Encounter Details Date Type Department Care Team (Late st Contact Info) Description 06/26/2025 Ancillary Orders [facility] [address] [place] [address] Keith Bolton MD 60 [place] [address] [email or web address] Social History Tobacco Use Types Packs/Day Years [...] 07/24/2025 Procedure Pass Erika Lank Imaging Department, [facility], [facility] [address] [facility], Floor L1 [place] [address] 10/04/2025 1:20 PM EST Office Visit [facility] [address] [place] [address] Alla Escobar MD [address] [place] [address] 3rd [place] [address] 10/12/2025 2:30 PM EST Office Visit [facility], [address], 5th [place] [address] Sasha Strickland PA-C [address] [place] [address] Neisha @[facility] Libertad Ramos DO [address] [place] [address] [email or web address] 10/12/2025 3:30 PM EST Office Visit [facility], [address], 5th [place] [address] Libertad Ramos DO [address] [place] [address] [email or web address] 10/26/2025 11:40 AM EST Appointment Erika Lank Imaging Department, [facility], MRI [address] [facility], Floor L1 [place] [address] Libertad Ramos DO [address] [place] [address] [email or web address] 11/07/2025 10:30 AM EST Blood Draw Laboratory Services, [address], 2nd [place] [address] Darinel Ordaz M.D. Leukemia MD Mike [address] [place], [place] [id number] [place] [address] Elena@[facility] 11/07/2025 11:30 AM EST Office Visit [facility], Division of Hematologic Oncology, [address], 8th [place] [address] Darinel Ordaz M.D. Leukemia MD Mike [address] [facility]2057 [place] [address] Elena@[facility] 11/30/2025 11:00 AM EST Office Visit Oral Medicine, [address], 11th [place] [address] Hao Robertson, SRAVANTHI, PhD [address] [place] [address] [email or web address] 12/15/2025 11:00 AM EST Office Visit [facility], [address], 11th [place] [address] Maribel Nur MD, MPH 45 [place] [address] Loida@[facility] 12/15/2025 12:[address] [facility] Imaging Department, [facility], Imaging Majlz-dj-Ffye [address] [place] [address], Floor L1 [place] [address] Libertad Ramos V DO [address] [place] [address] [email or web address] 12/15/2025 1:[address] [facility] Imaging Department, [facility], PET/CT [address] [place] [address] Libertad Ramos DO [address] [place] [address] [email or web address] 12/21/2025 1:00 PM EST Office Visit [facility], [address], 5th [place] [address] Libertad Ramos DO [address] [place] [address] [email or web address] 03/13/2026 1:00 PM EDT Office Visit [facility], [place] [address] [facility], 11th [place] [address] Cathy Schmidt PA-C [facility] [place] [address] [email or web address] Maribel Nur MD, MPH [address] [place] [address] Loida@[facility] documented as of this encounter Results * MRI Spine (Bone) Outside (No Interpretation) (06/15/2025 12:05 AM EDT) Narrative [facility] IMG INTERFACES - 06/26/2025 7:51 AM EDT This study is for PACS storage only and not for interpretation. us Keith Bolton MD IMG OUTSIDE IMAGING W/OUT IN TERPRETATION Edited Result - Final [facility] IMG INTERFACES documented in this encounter Visit Diagnoses Not on filedocumented in this encounter Care Teams Pole Peeling Machine Operator Relationship Specialty Start Date End Date Mariely Vargas MD [address] [address] PCP - General Internal Medicine 03/29/24 Lindsay Perales MD [address] [place] [address] [email or web address] Radiation Oncology 07/12/24 Libertad Ramos DO [address] [place] [address] [place] [address] [email or web address] Medical Oncology 12/22/24 Maribel Nur MD, MPH [address] [place] [address] [place] [address] Loida@[facility] Otolaryngology 12/22/24 Kezia Webb MD [address] [place] [address] [email or web address] Dermatology 12/22/24 Lor Bal MD [address] [place] [phone] Wendy Chavarria@[email or web address] Internal Medicine 12/22/24 Mynor Coats MD [facility], [facility] [address] Dermatology 01/02/25 Eliseo Rand RN [address] [place] [address] Zoe@[facility] Associate Infusion Nurse 01/02/25 Grover Barbosa MD [address] [place] [address] [place] [address] Terminal Gauger Supervisor Pulmonary Disease 01/05/25 Neville Torres MD [address] [place] [address] Urology 01/27/25 Kya Diaz, PHILIPPE [address] [address] [email or web address] Associate Infusion Nurse 01/23/25 Yvonne Lewis [address] [place] [address] [email or web address]1983 Sizing Sprayer 04/13/25 Brennon Delcid MD, MPH [address] [place] [address], ASB1- L2 [place] [address] [email or web address], [facility]1983 Radiation Oncology 06/02/25 Cathy Schmidt PA-C [address] [place] [address] [place] [address] [email or web address] Physician Video Clerk 06/14/25 documented as of this encounter Additional Source Comments The information contained in this document represents components of the legal health record. It is not the complete legal health record.[facility]
--- OUTSIDE RECORDS SUMMARY | 2025-09-20 10:42 | XMS_ITS | Encounter Summary ---
Author Organization [facility] Address [address] [place] [address] Care Team Providers Care Flight Operations Dispatch Clerk Name Role Phone Mariely Vargas MD Primary Care Provider [phone] Encounter Details Date Type Department Care Team (Late st Contact Info) Description 08/24/2025 Telephone [facility] Hematology Oncology [address] [place] [address] [facility] [place] [place] Social History Tobacco Use Types Packs/Day [...] for your loved ones. For example, child & adolescent psychiatrist or elderly care for an older adult? [...] Info) Description 09/21/2025 12:00 PM EST Appointment [facility] Endoscopy [address] [place] [address] Faraz Adams MD [address] [address] Bereket Borrego CRNA Need Address Info Felicia Rodriguez MD [address] [place] [address] 12/05/2025 10:00 AM EST Office Visit [facility] Hematology Oncology [address] [place] [address] Lor Bal MD [address] [place] [address] documented as of this encounter Visit Diagnoses Not on filedocumented in this encounter Additional Health Concerns Infection Onset Date Last Indicated Resolved Time CRE 02/17/2025 02/17/2025 MDRO (other) 02/17/2025 02/17/2025 documented as of this encounter Care Teams Flight Operations Dispatch Clerk Relationship Specialty Start Date End Date Mariely Vargas MD [address] [place] [phone] PCP - General 05/29/22 documented as of this encounter
--- OUTSIDE RECORDS SUMMARY | 2025-09-20 10:42 | XMS_ITS | Encounter Summary ---
Author Organization [facility] Address [address] [facility] [address] [place] [address] Phone Care Team Providers Care Stagecraft Teacher Name Role Phone Mariely Vargas MD Primary Care Provider Lindsay Perales MD Unavailable Richard Eden DO, Justine Unavailable [phone] Maribel Nur MD, MPH Unavailable Kezia Webb MD Unavailable [phone] Lor Bal MD Unavailable [phone] Mynor Coats MD Unavailable Eliseo Rand RN Unavailable Ayaka [email or web address] [email or web address].[facility] Grover Barbosa MD Unavailable Neville Torres MD Unavailable + [phone] Kya Diaz RN Unavailable Naga [email or web address] Yvonne Lewis Unavailable [phone] Brennon Delcid MD, MPH Unavailable + Cathy Schmidt PA-C Unavailable + Encounter Details Date Type Department Care Team (Late st Contact Info) Description 11/23/2024 Procedure Pass [facility], Ct Scan - [address] [address] Social History Tobacco Use Types Packs/Day Years [...] 07/24/2025 Procedure Pass Erika Lank Imaging Department, [facility], MRI [address] [facility], Floor L1 [place] [address] 10/04/2025 1:20 PM EST Office Visit [facility] [address] [place] [address] Alla Escobar MD [address] [place] [address] 3rd [place] [address] 10/12/2025 2:30 PM EST Office Visit [facility], [address], 5th [place] [address] Sasha Strickland PA-C [address] [place] [address] Neisha @[email or web address] Libertad Ramos DO [address] [place] [address] [email or web address] 10/12/2025 3:30 PM EST Office Visit [facility], [address], 5th [place] [address] Libertad Ramos DO [address] [place] [address] [email or web address] 10/26/2025 11:40 AM EST Appointment Erika Lank Imaging Department, [facility], MRI [address] [facility], Floor L1 [place] [address] Libertad Ramos DO [address] [place] [address] [email or web address] 11/07/2025 10:30 AM EST Blood Draw Laboratory Services, [facility] [address] [facility], 2nd [place] [address] Darinel Ordaz M.D. Leukemia MD Mike [address] [place] [address] Elena@[facility] 11/07/2025 11:30 AM EST Office Visit [facility], Division of Hematologic Oncology, [address], 8th [place] [address] Darinel Ordaz M.D. Leukemia MD Mike [address] [place] [address] Elena@[facility] 11/30/2025 11:00 AM EST Office Visit Oral Medicine, [address], 11th [place] [address] Hao Robertson DMD, PhD [address] [place] [address] [email or web address] 12/15/2025 11:00 AM EST Office Visit [facility], [facility] [address] [facility], 11th [place] [address] Maribel Nur MD, MPH [address] [place] [address] [email or web address]@[facility] 12/15/2025 12:00 PM EST Blood Draw Erika Lank Imaging Department, [facility], Imaging Tigmp-ln-Mmbm [address] [facility], Floor L1 [place] [address] Libertad Ramos V DO [address] [place] [address] [email or web address] 12/15/2025 1:30 PM EST Appointment Erika [facility] Imaging Department, [facility], PET/CT [address] [place] [address] Libertad Ramos V, DO [address] [place] [address] [email or web address] 12/21/2025 1:00 PM EST Office Visit [facility], [address], 5th [place] [address] Libertad Ramos V, DO [address] [place] [address] [email or web address] 03/13/2026 1:00 PM EDT Office Visit [facility], [address], 11th [place] [address] Cathy Schmidt PA-C [address] [place] [address] [place] [address] Maribel Nur MD, MPH [address] [place] [address] [email or web address]@[email or web address] documented as of this encounter Visit Diagnoses Not on filedocumented in this encounter Care Teams Stagecraft Teacher Relationship Specialty Start Date End Date Mariely Vargas MD [address] [address] PCP - General Internal Medicine 03/29/24 Lindsay Perales MD [address] [place] [address] [email or web address] Radiation Oncology 07/12/24 Libertad Ramos DO [address] [place] [address] [email or web address] Medical Oncology 12/22/24 Maribel Nur MD, MPH [address] [place] [address] [email or web address]@[facility] Otolaryngology 12/22/24 Kezia Webb MD [address] [place] [address] [email or web address] Dermatology 12/22/24 Lor Bal MD [address] [place] [phone] Wendy [email or web address] Internal Medicine 12/22/24 Mynor Coats MD [facility] [address] [address] Dermatology 01/02/25 Eliseo Rand RN [address] [place] [address] Zoe@[email or web address] Associate Infusion Nurse 01/02/25 Grover Barbosa MD [address] [place] [address] [place] [address] Interlocking Installer Pulmonary Disease 01/05/25 Neville Torres MD [address] [address] [email or web address] Urology 01/27/25 Kya Diaz, PHILIPPE [address] [address] [email or web address]@[email or web address] Associate Infusion Nurse 01/23/25 Yvonne Lewis [address] [place] [address] [email or web address] Mine Inspector 04/13/25 Brennon Delcid MD, MPH [address] [place], [place] [address]- [address] [address] Richard@[email or web address] Radiation Oncology 06/02/25 Cathy Schmidt PA-C [address] [place] [address] [place] [address] [email or web address] Physician Microarray Operations Vice President 06/14/25 documented as of this encounter Additional Source Comments The information contained in this document represents components of the legal health record. It is not the complete legal health record.[facility]
--- OUTSIDE RECORDS SUMMARY | 2025-09-20 10:42 | XMS_ITS | Encounter Summary ---
Author Organization [facility] Address [address] [facility] [address] [place] [address] Phone Care Team Providers Care Property Clerk Name Role Phone Mariely Vargas MD Primary Care Provider Lindsay Perales MD Unavailable Ramos Eden DO, Justine Unavailable [phone] Maribel Nur MD, MPH Unavailable Kezia Webb MD Unavailable [phone] Lor Bal MD Unavailable [phone] Mynor Coats MD Unavailable Eliseo Rand RN Unavailable Ayaka Grier@[email or web address] [email or web address].[facility] Grover Barbosa MD Unavailable [phone] Neville Torres MD Unavailable + [phone] Kya Diaz RN Unavailable Naga Raygoza@[email or web address] [email or web address].[facility] Yvonne Lewis Unavailable [phone] Brennon Delcid MD, MPH Unavailable + Cathy Schmidt PA-C Unavailable + Encounter Details Date Type Department Care Team (Late st Contact Info) Description 12/06/2024 Procedure Pass [facility] [address] [place] [address] Social History Tobacco Use Types Packs/Day Years [...] is your housing situation today? I have bryna sing 07/18/2024 How many times have you [...] 07/24/2025 Procedure Pass Erika Lank Imaging Department, [facility], MRI [address] [facility], Floor L1 [place] [address] 10/04/2025 1:20 PM EST Office Visit [facility] [address] [place] [address] Alla Escobar MD [address] [place] [address] 3rd [place] [address] 10/12/2025 2:30 PM EST Office Visit [facility], [address], 5th [place] [address] Sasha Strickland PA-C [address] [place] [address] Neisha @[email or web address] Libertad Ramos DO [address] [place] [address] [email or web address] 10/12/2025 3:30 PM EST Office Visit [facility], [address], 5th [place] [address] Libertad Ramos DO [address] [place] [address] [email or web address] 10/26/2025 11:40 AM EST Appointment Erika Lank Imaging Department, [facility], MRI [address] [facility], Floor L1 [place] [address] Libertad Ramos V DO [address] [place] [address] [email or web address] 11/07/2025 10:30 AM EST Blood Draw Laboratory Services, [facility] [address] [facility], 2nd [place] [address] Darinel Ordaz M.D. Leukemia MD Mike [address] [place] [address] Elena@[facility] 11/07/2025 11:30 AM EST Office Visit [facility], Division of Hematologic Oncology, [address], 8th [place] [address] Darinel Ordaz M.D. Leukemia MirzaMD [address] [place] [address] Elena@[facility] 11/30/2025 11:00 AM EST Office Visit Oral Medicine, [address], 11th [place] [address] Hao Robertson DMD, PhD [address] [place] [address] [email or web address] 12/15/2025 11:00 AM EST Office Visit [facility], [facility] [address] [facility], 11th [place] [address] Maribel Nur MD, MPH [address] [place] [address] Loida@[facility] 12/15/2025 12:00 PM EST Blood Draw Erika Lank Imaging Department, [facility], Imaging Ucxgp-fj-Jydu [address] [facility], Floor L1 [place] [address] Libertad Ramos DO [address] [place] [address] [email or web address] 12/15/2025 1:30 PM EST Appointment [facility] Imaging Department, [facility], PET/CT 450 [place], [place] Libertad Ramos V DO [address] [place] [address] [email or web address] 12/21/2025 1:00 PM EST Office Visit [facility], [address], 5th [place] [address] Libertad Ramos DO [address] [place] [address] [email or web address] 03/13/2026 1:00 PM EDT Office Visit [facility], [address], 11th [place] [address] Cathy Schmidt PA-C [address] [place] [address] [place] [address] Maribel Nur MD, MPH [address] [place] [address] Loida@[facility] documented as of this encounter Visit Diagnoses Not on filedocumented in this encounter Care Teams Property Clerk Relationship Specialty Start Date End Date Mariely Vargas MD [address] [address] PCP - General Internal Medicine 03/29/24 Lindsay Perales MD 271 [place] [address] [email or web address] Radiation Oncology 07/12/24 Libertad Ramos DO [address] [place] [address] [email or web address] Medical Oncology 12/22/24 Maribel Nur MD, MPH [address] [place] [address] Loida@[facility] Otolaryngology 12/22/24 Kezia Webb MD [address] [place] [address] [email or web address] Dermatology 12/22/24 Lor Bal MD [address] [place] [phone] Wendy [email or web address]@[email or web address] Internal Medicine 12/22/24 Mynor Coats MD [address] [address] Dermatology 01/02/25 Eliseo Rand RN [address] [place] [address] [email or web address] Associate Infusion Nurse 01/02/25 Grover Barbosa MD [address] [place] [address] [place] [address] Sugar Trucker Pulmonary Disease 01/05/25 Neville Torres MD [address] [address] [email or web address] Urology 01/27/25 Kya Diaz, PHILIPPE [address] [address] Silvia@[facility] Associate Infusion Nurse 01/23/25 Yvonne Lewis [address] [place] [address] [email or web address] Sanitation Director 04/13/25 Brennon Delcid MD, MPH [address] [place], [place] [address]- [address] [address] Richard@[email or web address] Radiation Oncology 06/02/25 Cathy Schmidt PA-C [address] [place] [address] [place] [address] [email or web address] Physician Molecular Technologist 06/14/25 documented as of this encounter Additional Source Comments The information contained in this document represents components of the legal health record. It is not the complete legal health record.[facility]
--- OUTSIDE RECORDS SUMMARY | 2025-09-20 10:42 | XMS_ITS | Encounter Summary ---
Author Organization [facility] Address [address] [facility] [address] [place] [address] Phone Care Team Providers Care Recreation Teacher Name Role Phone Mariely Vargas MD Primary Care Provider Lindsay Perales MD Unavailable Richard Eden DO, Justine Unavailable [phone] Maribel Nur MD, MPH Unavailable Kezia Webb MD Unavailable [phone] Lor Bal MD Unavailable [phone] Mynor Coats MD Unavailable Eliseo Rand RN Unavailable Ayaka [email or web address] Grover Barbosa MD Unavailable Neville Torres MD Unavailable + [phone] Kya Diaz RN Unavailable Naga [email or web address] PEORI[facility] HERBERT.[facility] Yvonne Lewis Unavailable [phone] Brennon Delcid MD, MPH Unavailable + Cathy Schmidt PA-C Unavailable + Encounter Details Date Type Department Care Team (Late st Contact Info) Description 12/02/2024 Procedure Pass [facility] Imaging Department, [facility] [place], [place] [address] [facility], [place] L1 [place] [address] Social History Tobacco Use Types Packs/Day Years [...] Care Team (Marcelo todd Contact Info) Description 07/24/2025 Procedure [facility] Imaging Department, [facility], MRI 450 [facility], Floor L1 [place] [address] 10/04/2025 1:20 PM EST Office Visit [facility] [address] [place] [address] Alla Escobar MD [address] [place] [address] 3rd [place] [address] 10/12/2025 2:30 PM EST Office Visit [facility], [address], 5th [place] [address] Sasha Strickland PA-C [address] [place] [address] Neisha @[facility] Libertad Ramos DO [address] [place] [address] [email or web address] 10/12/2025 3:30 PM EST Office Visit [facility], [address], 5th [place] [address] Libertad Ramos DO [address] [place] [address] [email or web address] 10/26/2025 11:40 AM EST Appointment [facility] Imaging Department, [facility], MRI 450 [facility], Floor L1 [place] [address] Libertad Ramos DO [address] [place] [address] [email or web address] 11/07/2025 10:30 AM EST Blood Draw Laboratory Services, [facility] 450 [facility], 2nd [place] [address] Darinel Ordaz M.D. Leukemia MD Mike [address] [place] [address] Elena@[facility] 11/07/2025 11:30 AM EST Office Visit [facility], Division of Hematologic Oncology, [facility] 450 [facility], 8th [place] [address] Darinel Ordaz M.D. Leukemia MD Mike [address] [place] [address] Elena@[facility] 11/30/2025 11:00 AM EST Office Visit Oral Medicine, [facility] 450 [facility], 11th [place] [address] Hao Robertson DMD, PhD [address] [place] [address] [email or web address] 12/15/2025 11:00 AM EST Office Visit [facility], [facility] 450 [facility], 11th [place] [address] Maribel Nur MD, MPH 45 [place] [address] Loida@[facility] 12/15/2025 12:00 PM EST Blood Draw [facility] Imaging Department, [facility], Imaging Vrnft-hi-Kgkf 450 [facility], Floor L1 [place] [address] Libertad Ramos DO 450 [place] [address] [email or web address] 12/15/2025 1:30 PM EST Appointment Erika [facility] Imaging Department, [facility], PET/CT 450 [place] [address] Libertad Ramos V DO 450 [place] [address] [email or web address] 12/21/2025 1:00 PM EST Office Visit [facility], [address], 5th [place] [address] Libertad Ramos DO [address] [place] [address] [email or web address] 03/13/2026 1:00 PM EDT Office Visit [facility], [address], 11th [place] [address] Cathy Schmidt PA-C [address] [place] [address] [place] [address] Maribel Nur MD, MPH [address] [place] [address] Loida@[facility] documented as of this encounter Visit Diagnoses Not on filedocumented in this encounter Care Teams Recreation Teacher Relationship Specialty Start Date End Date Gul, Mariely Caldwell MD [address] [address] PCP - General Internal Medicine 03/29/24 Lindsay Perales MD [address] [place] [address] [email or web address] Radiation Oncology 07/12/24 Libertad Ramos DO [address] [place] [address] [email or web address] Medical Oncology 12/22/24 Maribel Nur MD, MPH [address] [place] [address] Loida@[facility] Otolaryngology 12/22/24 Kezia Webb MD [address] [place] [address] [email or web address] Dermatology 12/22/24 Lor Bal MD [address] [place] [id number] Wendy [email or web address] Internal Medicine 12/22/24 Mynor Coats MD [address] [address] Dermatology 01/02/25 Eliseo Rand RN [address] [place] [address] Zoe@[email or web address] Associate Infusion Nurse 01/02/25 Grover Barbosa MD [address] [place] [address] [place] [address] Manager E Learning Pulmonary Disease 01/05/25 Neville Torres MD [address] [address] [email or web address] Urology 01/27/25 Kya Diaz RN [address] [address] Silvia@[email or web address] Associate Infusion Nurse 01/23/25 Yvonne Lewis [address] [place] [address] [email or web address] Straw Boss 04/13/25 Brennon Delcid MD, MPH [address] [place] [address], [facility]- [address] [address] Richard@[email or web address] Radiation Oncology 06/02/25 Cathy Schmidt PA-C [address] [place] [address] [place] [address] [email or web address] Physician Hi Lift Operator 06/14/25 documented as of this encounter Additional Source Comments The information contained in this document represents components of the legal health record. It is not the complete legal health record.[facility]
--- OUTSIDE RECORDS SUMMARY | 2025-09-20 10:44 | XMS_ITS | Encounter Summary ---
Author Organization [facility] Address [address] [facility] [address] [place] [address] Phone Care Team Providers Care Tunnel Kiln Repairer Name Role Phone Mariely Vargas MD Primary Care Provider Lindsay Perales MD Unavailable Richard Eden DO, Justine Unavailable [phone] Maribel Nur MD, MPH Unavailable Kezia Webb MD Unavailable [phone] Lor Bal MD Unavailable [phone] Mynor Coats MD Unavailable Eliseo Rand RN Unavailable Ayaka [email or web address] Grover Barbosa MD Unavailable Neville Torres MD Unavailable + [phone] Kya Diaz RN Unavailable Naga Raygoza@[email or web address].[facility] Yvonne Lewis Unavailable [phone] Brennon Delcid MD, MPH Unavailable + Cathy Schmidt PA-C Unavailable + Reason for Referral * MRI/CAT Scan - Closed Specialty Diagnoses / Procedures Referred By Contvladislav t Referred To Contact Radiology Diagnoses Squamous cell carcinoma, scalp/neck Procedures NM PET CT Scalp to Toes Maribel Nur MD, MPH [address] [place] [address] Phone: tel: fax: mailto:[email or web address] Referral ID Status Reason Start Date Expiration Date Visits Re quested Visits Authorized [id number] Closed 12/15/2024 1 1 Encounter Details Date Type Department Care Team (Late st Contact Info) Description 12/15/2024 Ancillary Orders [facility] [address], 11th [place] [address] Maribel Nur MD, MPH [address] [place] [address] [email or web address] Squamous cell carcinoma, scalp/neck (Primary Dx) [...] 07/24/2025 Procedure Pass Erika Lank Imaging Department, [facility], MRI 450 [facility], Floor L1 [place] [address] 10/04/2025 1:20 PM EST Office Visit [facility] [address] [place] [address] Alla Escobar MD [address] [place] [address] 3rd [place] [address] 10/12/2025 2:30 PM EST Office Visit [facility], [facility] [address], 5th [place] [address] Sasha Strickland PA-C 450 [place] [address] Neisha @[facility] Libertad Ramos DO [address] [place] [address] [email or web address] 10/12/2025 3:30 PM EST Office Visit [facility], [address], 5th [place] [address] Libertad Ramos V DO [address] [place] [address] [email or web address] 10/26/2025 11:40 AM EST [facility], [facility], MRI [address] [place] [address], Floor [address]1 [place] [address] Libertad Ramos DO [address] [place] [address] [email or web address] 11/07/2025 10:30 AM EST Blood Draw Laboratory Services, [address], 2nd [place] [address] Darinel Ordaz M.D. Leukemia MD Mike [address] [place], [place] [phone] [place] [address] Elena@[facility] 11/07/2025 11:30 AM EST Office Visit [facility], Division of Hematologic Oncology, [address], 8th [place] [address] Darinel Ordaz M.D. Leukemia MD Mike [address] [place], [place] [phone] [place] [address] Elena@[facility] 11/30/2025 11:00 AM EST Office Visit Oral Medicine, [address], 11th [place] [address] Hao Robertson DMD, PhD [address] [place] [address] [email or web address] 12/15/2025 11:00 AM EST Office Visit [facility], [address], 11th [place] [address] Maribel Nur MD, MPH [address] [place] [address] [email or web address]@[facility] 12/15/2025 12:00 PM EST Blood Draw [facility] Imaging Department, [facility], Imaging Ktoik-hc-Ixgu [address] [facility], Floor L1 [place] [address] Libertad Ramos DO [address] [place] [address] [email or web address] 12/15/2025 1:30 PM EST [facility], [facility], PET/CT 450 [place] [address] Liebrtad Ramos DO [address] [place] [address] [email or web address] 12/21/2025 1:00 PM EST Office Visit [facility], [facility] 450 [facility], 5th [place] [address] Libertad Ramos DO [address] [place] [address] [email or web address] 03/13/2026 1:00 PM EDT Office Visit [facility], [facility] 450 [facility], 11th [place] [address] Cathy Schmidt PA-C [address] [place] [address] [place] [address] Maribel Nur MD, MPH [address] [place] [address] Loida@[email or web address] documented as of this encounter Results * [...] 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 ATTESTATION: I, Varun Gibbons, as teaching physician have reviewed the images, [...] x 0.9 cm left periaortic lymph node ([id number]) with SUVmax 1.8. 1.5 x 1.0 cm [...] editedthe report originally created by Etelvina Ruvalcaba. 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, scalp/neck Other malignant neoplasm of scalp and skin of neck documented in this encounter Care Teams Tunnel Kiln Repairer Relationship Specialty Start Date End Date Mariely Vargas MD [address] [address] PCP - General Internal Medicine 03/29/24 Lindsay Perales MD [address] [place] [address] [email or web address] Radiation Oncology 07/12/24 Libertad Ramos DO [address] [place] [address] [email or web address] Medical Oncology 12/22/24 Maribel Nur MD, MPH [address] [place] [address] Loida@[facility] Otolaryngology 12/22/24 Kezia Webb MD [address] [place] [address] [email or web address] Dermatology 12/22/24 Lor Bal MD [address] [place] [phone] Wendy Chavarria@[employer] Internal Medicine 12/22/24 Mynor Coats MD [address] [address] Dermatology 01/02/25 Eliseo Rand, PHILIPPE [address] [place] [address] Zoe@[facility] Associate Infusion Nurse 01/02/25 Grover Barbosa MD [address] [place] [address] [place] [address] Telecommunications Network Engineer Pulmonary Disease 01/05/25 [place] [address] [place] [address] [email or web address] Urology 01/27/25 Kya Diaz, PHILIPPE [facility] [address] [address] Silvia@[email or web address] Associate Infusion Nurse 01/23/25 Yvonne Lewis [address] [place] [address] [email or web address] Limited Radiology Technician 04/13/25 Brennon Delcid MD, MPH [address] [place], [place] [address]- [address] [address] [email or web address] Radiation Oncology 06/02/25 Cathy Schmidt PA-C [address] [place] [address] [place] [address] [email or web address] Physician Motor Equipment Lieutenant 06/14/25 documented as of this encounter Additional Source Comments The information contained in this document represents components of the legal health record. It is not the complete legal health record.[facility]
--- OUTSIDE RECORDS SUMMARY | 2025-09-20 10:44 | XMS_ITS | Clinical Summary ---
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 15 g 2 Active sulfamethoxazo le-trimethopri m (BACTRIM DS,SEPTRA DS) 800-160 mg per tablet TAKE 1 TAB BY MOUTH 2 TIMES A DAY FOR 21 DAYS Active aspirin 81 mg tablet Take 81 mg by mouth 1 (one) time each day. Active Clenpiq 10 mg-3.5 gram- 12 gram/160 mL solution Take 2 Bottles by mouth See administration instructions. 320 mL Active hydrOXYzine HCL (ATARAX) 25 mg tabletIndicati ons:PV (polycythemia vera) ([facility] V24, [facility] V28) TAKE 1 TABLET BY MOUTH THREE TIMES A DAY 270 tablet 1 Active gabapentin (NEURONTIN) 300 mg capsule Take 1 capsule (300 mg total) by mouth every 6 (six) hours. 120 each 2024 Discontinued guaiFENesin-co deine (ROBITUSSIN-AC ) 100-10 mg/5 mL syrupIndicatio ns:Prostate cancer ([facility] V24, [facility] V28),Acute pneumonia Take 10 mL by mouth every 6 (six) hours if needed for cough. Max Daily Amount: 40 mL 100 mL 2024 Discontinued ferrous gluconate (FERGON) 324 mg (38 mg iron) tablet Take 1 tablet (324 mg total) by mouth every other day. 15 each 2024 diphenhydramin [id number] nesium-simethi cone-lidocaine (MAGIC MOUTHWASH) [id number]- 200 mg/30 mL liquid suspension Use 5 mL in the mouth or throat 4 (four) times a day. Swish and Spit 480 mL 2024 Discontinued oxyCODONE (OxyCONTIN) 20 mg 12 [...] 20 mg 20 tablet 025 2024 Discontinued hydrOXYzine HCL (ATARAX) 25 mg tablet Take 1 tablet (25 mg total) by mouth 3 (three) times a day. 90 each 025 2024 Discontinued Active Problems Problem Noted Date Diagnosed Date Radiation-induced esophagitis 07/28/2025 Mucositis 07/28/2025 Daria esophagitis ([facility] V24, [facility] V28) 0 07/28/2025 Chronic left-sided lumbar radiculopathy 07/27/20 25 Delirium 07/04/2025 Pneumonia of left lower lobe due to infectious o rganism 06/30/2025 Anemia 06/29/2025 Gastrointestinal hemorrhage, unspecified gastrointestinal hemorrhage type 06/29/2025 Moderate protein-calorie malnutrition ([facility] V 24) 05/05/2025 Anxiety 05/05/2025 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 On antineoplastic chemotherapy 02/16/2025 Drug therapy 02/16/2025 Acute left-sided back pain with sciatica 025 Intractable back pain 02/04/2025 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 05/10 Nephrolithiasis 10/28/2022 Splenomegaly 10/28/2022 Deep venous thrombosis ([facility] V24, [facility] V28 ) 07/29/2022 Overview (12/18/2022): 1998 at time of DX PV Myelofibrosis (CMS/HCC V24, [facility]/HCC V28) 022 Post-phlebitic syndrome 07/29/2022 Pulmonary embolus (CMS/HCC V24, [facility]/HCC V28) Thrombocytosis 06/26/2020 Irritable bowel syndrome with diarrhea 0 Lung nodule 05/22/2020 Irritable bowel syndrome 12/29/2017 Kidney disease 12/29/2017 Obstructive sleep apnea syndrome 12/29/2017 Overview (12/18/2022): CPAP Pulmonary nodules 12/29/2017 Skin cancer of nose 12/29/2017 Overview (12/18/2022): Type of cancer not indicated, removed 09/2013 Acquired hypothyroidism 05/26/2017 Chronic gout 05/26/2017 Hyperglycemia 05/26/2017 CHICO (obstructive sleep apnea) 05/26/2017 PV (polycythemia vera) ([facility] V24, [facility] V28 ) 05/26/2017 Prostate cancer ([facility] V24, [facility] V28) 05/26 Resolved Problems Problem Noted Date Diagnosed Date Resolved Date Sepsis ([facility] V24, [facility] V28) 07/26/2025 07/28/2025 CLL (chronic lymphocytic marcie kemia) ([place] [id number], [place] [id number]) 05/05/2025 09/05/2025 Encounters Date Type Department Care Team Description 09/11/2025 Telephone Gastroenterology - [address] [phone] Faraz Adams MD 09/05/2025 9:30 AM EDT Office Visit [facility] Hematology Oncology [address] [place] [phone] Johan-Iy Lor marques MD PV (polycythemia vera) ([facility] V24, [facility] V28) (Primary Dx); Myelofibrosis ([facility] V24, [facility] V28); 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; Intractable back pain; Pneumonia of left lower lobe due to infectious organism 08/24/2025 Telephone [facility] Hematology Oncology [address] [place] [phone] Kari Peterson [place] 08/24/2025 Telephone [facility] Hematology Oncology [address] [place] [phone] Johan-ILor suazo MD 08/23/2025 Telephone Gastroenterology - [address] [place] [phone] Jana Davis MD 08/18/2025 Telephone [facility] Hematology Oncology [address] [place] [phone] Subramonia-Iy Lor marques MD 07/26/2025 9:07 PM EDT - 07/28/2025 3:22 PM EDT Hospital Encounter [facility] Intermediate Care Unit B [address] [place] [phone] Jose Alan MD Kokkinos, Erika, MD Jones, Christopher, MD Japaridze, Anna, MD Fever, unspecified fever cause (Primary Dx); Other dysphagia; History of radiation therapy Discharge Disposition: Home or Self Care 07/25/2025 9:00 AM EDT Office Visit [facility] Hematology Oncology [address] [place] [phone] Juan Manuel Green MD 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 (Primary Dx) 07/25/2025 8:20 AM EDT - 07/25/2025 11:59 PM EDT Hospital Encounter [facility] Xray [address] [place] [phone] Juan Manuel Green MD Discharge Disposition: Home or Self Care 07/25/2025 8:00 AM EDT - 07/25/2025 11:59 PM EDT Hospital Encounter [facility] Infusion Center [address] [place] [phone] Pneumonia of left lower lobe due to infectious organism (Primary Dx); Skin cancer of nose Discharge Disposition: Home or Self Care 07/18/2025 Telephone Gastroenterology - [address] [phone] Jana Davis MD 07/04/2025 9:30 AM EDT Office Visit [facility] Hematology Oncology [address] [place] [phone] Subramonia-Iy erLor MD Myelofibrosis (CMS/HCC V24, [facility] V28) (Primary Dx); 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; Intractable back pain; Multiple subsegmental pulmonary emboli without acute cor pulmonale ([facility] V24, [facility] V28); Moderate protein-calorie malnutrition ([facility] V24); Thrombocytosis; Splenomegaly; Gastrointestinal hemorrhage, unspecified gastrointestinal hemorrhage type; Anxiety; Acute deep vein thrombosis (DVT) of other specified vein of right lower extremity ([facility] V24, [facility] V28); Pneumonia of left lower lobe due to infectious organism; Delirium 07/04/2025 Telephone Gastroenterology - [address] [facility] [address] [place] [phone] Faraz Adams MD 06/30/2025 7:17 AM EDT Anesthesia Event [facility] Endoscopy [address] [place] [phone] Ami Zamora CRNA 06/28/2025 8:37 PM EDT - 06/30/2025 6:33 PM EDT Hospital Encounter [facility] Urology Unit [address] [place] [phone] Marco Antonio Jean MD Jones, Christopher, MD Alam, Aroosa, MD Gastrointestinal hemorrhage, unspecified gastrointestinal hemorrhage type (Primary Dx); Fatigue associated with anemia; Iron deficiency anemia, unspecified iron deficiency anemia type Discharge Disposition: Home or Self Care from Last 3 Months Surgical History Surgery Date Site/Laterality Comments PROSTATE SURGERY PROCEDURE:PROSTATE SURGERY Medical History Medical History Date Comments Obstructive sleep apnea (adult) (pediatric) DX:Obstructive sleep apnea (adult) (pediatric) Polycythemia DX:Polycythemia Hypothyroidism DX:Hypothyroidis m Hyperglycemia DX:Hyperglycemia Prostate cancer ([facility] V24, [facility] V28) DX:Prostate cancer (HCC) Family History Medical [...] care for your loved ones. For example, director of child welfare services or elderly care for an older adult? [...] EST Appointment [facility] Endoscopy [address] [place] [phone] Faraz Adams MD [address] [phone] Bereket Borrego CRNA Need Address Info Felicia Rodriguez MD [address] [place] [phone] 12/05/2025 10:00 AM EST Office Visit [facility] Hematology Oncology [address] [place] [phone] Lor Bal MD [address] [place] [phone] Health Maintenance Due Date Last Done Comments [...] ECG 12-LEAD STAT 06/28/2025 8:54 PM EDT HEMOGLOBIN A1C Routine 01/20/2025 9:23 AM EDT Diabetes mellitus without complication (CMS/[facility] V24, [facility] V28) HM URINE ALBUMIN CREATININE RATIO Routine 12/31/2023 LIPID PANEL Routine 12/31/2023 from Last 3 Months or Most Recently Relevant to Health Maintenance Results * (ABNORMAL) Manual differential (08/30/2025 3:57 PM EDT) Only the most recent of8 resultswithin the time period is included. Neutrophils % 83.0 % LAB HEMETOLOGY METHOD 08/30/2025 5:10 PM EDT [facility] Bands % 1.0 % LAB HEMETOLOGY METHOD 08/30/2025 5:10 PM EDT [facility] Lymphocytes % 5.0 % LAB HEMETOLOGY METHOD 08/30/2025 5:10 PM T [facility] Monocytes % 0.0 % LAB HEMETOLOGY METHOD 08/30/2025 5:10 PM EDT [facility] Eosinophils % 5.0 % LAB HEMETOLOGY METHOD 08/30/2025 5:10 PM EDT [facility] Basophils % 4.0 % LAB HEMETOLOGY METHOD 08/30/2025 5:10 PM EDT [facility] Metamyelocytes % 1.0(H) % LAB HEMETOLOGY METHOD 08/30/2025 5:10 PM EDT [facility] Myelocytes % 2.0(H) % LAB HEMETOLOGY METHOD 08/30/2025 5:10 PM EDT [facility] Neutrophils Absolute Manual 13.20(H) 1.50 - 7.00 K/mcL LAB HEMETOLOGY METHOD 08/30/2025 5:10 PM EDT [facility] Bands Absolute Manual 0.16(H) 0.00 - 0.00 K/mcL LAB HEMETOLOGY METHOD 08/30/2025 5:10 PM EDT [facility] Lymphocytes Absolute 0.80(L) 1.00 - 5.00 K/mcL LAB HEMETOLOGY METHOD 08/30/2025 5:10 PM EDT [facility] Monocytes Absolute Manual 0.00(L) 0.20 - 1.00 K/mcL LAB HEMETOLOGY METHOD 08/30/2025 5:10 PM EDT [facility] Eosinophils Absolute Manual 0.80(H) 0.00 - 0.50 K/mcL LAB HEMETOLOGY METHOD 08/30/2025 5:10 PM EDT [facility] Basophils Absolute Manual 0.64(H) 0.00 - 0.20 K/mcL LAB HEMETOLOGY METHOD 08/30/2025 5:10 PM EDT [facility] Metamyelocytes Absolute Manual 0.16(H) 0.00 - 0.00 K/mcL LAB HEMETOLOGY METHOD 08/30/2025 5:10 PM EDT [facility] Myelocytes Absolute Manual 0.32(H) 0.00 - 0.00 K/mcL LAB HEMETOLOGY METHOD 08/30/2025 5:10 PM EDT [facility] Rbc Morphology Present( A) Consistent with indices, Normal for LAB HEMETOLOGY METHOD 08/30/2025 5:10 PM EDT [facility] Platelet Morphology - WAM See Note(A) Normal LAB HEMETOLOGY METHOD 08/30/2025 5:10 PM EDT [facility] Comment:PLT: Giant platelets seen Ovalocytes Present 5 - 10%(A) (none) LAB HEMETOLOGY METHOD 08/30/2025 5:10 PM EDT [facility] Blood Venous blood specimen / Unknown Venipuncture / Unknown 08/30/2025 3:57 PM EDT 08/30/2025 4:36 PM EDT Lor Bal MD LAB BLOOD ORDERABLE S Final Result [facility] [address] [place] [address], * (ABNORMAL) CBC auto differential (08/30/2025 3:57 PM EDT) Only the most recent of9 resultswithin the time period is included. WBC 15.9(H) 4.8 - 10.8 K/mcL LAB HEMETOLOGY METHOD 08/30/2025 5:10 PM EDT [facility] RBC 3.70(L) 4.50 - 5.50 M/mcL LAB HEMETOLOGY METHOD 08/30/2025 5:10 PM EDT [facility] Hemoglobin 9.9(L) 13.5 - 17.5 g/dL LAB HEMETOLOGY METHOD 08/30/2025 5:10 PM EDT [facility] Hematocrit 32.4(L) 42.0 - 54.0 % LAB HEMETOLOGY METHOD 08/30/2025 5:10 PM EDT [facility] MCV 87.3 79.0 - 98.0 FL LAB HEMETOLOGY METHOD 08/30/2025 5:10 PM EDT [facility] MCH 26.7(L) 27.0 - 32.0 pcg LAB HEMETOLOGY METHOD 08/30/2025 5:10 PM EDT [facility] MCHC 30.6(L) 32.0 - 37.0 g/dL LAB HEMETOLOGY METHOD 08/30/2025 5:10 PM EDT [facility] RDW 22.3(H) 11.0 - 15.0 % LAB HEMETOLOGY METHOD 08/30/2025 5:10 PM EDT [facility] Platelets 464(H) 130 - 400 K/mcL LAB HEMETOLOGY METHOD 08/30/2025 5:10 PM EDT [facility] MPV 11.0 7.0 - 11.0 FL LAB HEMETOLOGY METHOD 08/30/2025 5:10 PM EDT [facility] NRBC 0.2 <1.0 % LAB HEMETOLOGY METHOD 08/30/2025 5:10 PM EDT [facility] NRBC Absolute 0.03 <0.10 K/mcL LAB HEMETOLOGY METHOD 08/30/2025 5:10 PM EDT [facility] Blood Venous blood specimen / Unknown Venipuncture / Unknown 08/30/2025 3:57 PM EDT 08/30/2025 4:36 PM EDT Lor Bal MD LAB BLOOD ORDERABLE S Final Result [facility] [address] [place] [address], [place] [phone] * (ABNORMAL) Basic metabolic panel (07/28/2025 6:08 AM EDT) Only the most recent of4 resultswithin the time period is included. Sodium 140 133 - 145 mmol/L LAB CHEMISTRY METHOD 07/28/2025 8:08 AM EDT [facility] Potassium 4.3 3.5 - 5.5 mmol/L LAB CHEMISTRY METHOD 07/28/2025 8:08 AM EDT [facility] Chloride 106 96 - 110 mmol/L LAB CHEMISTRY METHOD 07/28/2025 8:08 AM EDT [facility] CO2 29 21 - 32 mmol/L LAB CHEMISTRY METHOD 07/28/2025 8:08 AM EDT [facility] Anion Gap 5 3 - 11 LAB CHEMISTRY METHOD 07/28/2025 8:08 AM [facility] Glucose 115(H) 70 - 100 mg/dL LAB CHEMISTRY METHOD 07/28/2025 8:08 AM [facility] BUN 6 5 - 25 mg/dL LAB CHEMISTRY METHOD 07/28/2025 8:08 AM [facility] Creatinine 0.60(L) 0.70 - 1.30 mg/dL LAB CHEMISTRY METHOD 07/28/2025 8:08 AM [facility] eGFR 102 >=60 mL/min/1. 73m2 LAB CHEMISTRY METHOD 07/28/2025 8:08 AM [facility] Comment:Calculation based on the Chronic Kidney Disease Epidemiology Collaboration (CKD-EPI) equation refit without adjustment for race. BUN/Creatinine Ratio 10.0 LAB CHEMISTRY METHOD 07/28/2025 8:08 AM [facility] Calcium 8.5 8.5 - 10.5 mg/dL LAB CHEMISTRY METHOD 07/28/2025 8:08 AM [facility] Blood Venous blood specimen / Unknown Venipuncture / Unknown 07/28/2025 6:08 AM EDT 07/28/2025 6:30 AM EDT us Etelvina Martinez MD LAB BLOOD ORDERABLES Final Res ult [facility] [address] [place] [address], * Magnesium (07/27/2025 4:08 AM EDT) Only the most recent of5 resultswithin the time period is included. Magnesium 1.9 1.9 - 2.6 mg/dL LAB CHEMISTRY METHOD 07/27/2025 5:21 AM EDT [facility] Blood Venous blood specimen / Unknown Venipuncture / Unknown 07/27/2025 4:08 AM EDT 07/27/2025 4:50 AM EDT us Varun Lovelace MD LAB BLOOD ORDERABLES Final Result [facility] [address] [place] [address], [place] [phone] * (ABNORMAL) Urinalysis with reflex microscopic and culture (07/27/2025 12:07 AM EDT) Specific [place] Urine >1.045(H) 1.003 - 1.030 LAB URINALYSIS - AUTOMATED METHOD 07/27/2025 12:21 AM [facility] pH, Urine 5.5 5.0 - 8.0 pH LAB URINALYSIS - AUTOMATED METHOD 07/27/2025 12:21 AM [facility] Leukocytes, Urine Negative Negative LAB URINALYSIS - AUTOMATED METHOD 07/27/2025 12:21 AM [facility] Nitrite, Urine Negative Negative LAB URINALYSIS - AUTOMATED METHOD 07/27/2025 12:21 AM [facility] Protein, Urine Trace <=Trace mg/dL LAB URINALYSIS - AUTOMATED METHOD 07/27/2025 12:21 AM [facility] Glucose, Urine Negative Negative mg/dL LAB URINALYSIS - AUTOMATED METHOD 07/27/2025 12:21 AM [facility] Ketones, Urine Negative Negative mg/dL LAB URINALYSIS - AUTOMATED METHOD 07/27/2025 12:21 AM [facility] Urobilinogen , Urine 0.2 0.2 - 1.0 mg/dL LAB URINALYSIS - AUTOMATED METHOD 07/27/2025 12:21 AM [facility] Bilirubin, Urine Negative Negative LAB URINALYSIS - AUTOMATED METHOD 07/27/2025 12:21 AM EDT [facility] Blood, Urine Negative Negative LAB URINALYSIS - AUTOMATED METHOD 07/27/2025 12:21 AM EDT [facility] Urine Urine specimen obtained by clean catch procedure / Unknown Non-blood Collection / Unknown 07/27/2025 12:07 AM EDT 07/27/2025 12:16 AM EDT us Jose Alan MD LAB URINE ORDERABLES Fin al Result Performing Organization Address [facility]/ZIP Co de Phone Number [facility] [address] [place] [address], [place] [phone] * [place] urine culture tube (07/27/2025 12:07 AM EDT) Only the most recent of2 resultswithin the time period is included. Extra Tube Hold for add-ons. 07/27/2025 2:01 AM EDT [facility] Comment:Auto resulted. Urine Urine specimen obtained by clean catch procedure / Unknown Non-blood Collection / Unknown 07/27/2025 12:07 AM EDT 07/27/2025 12:16 AM EDT us Jose Alan MD LAB URINE ORDERABLES Fin al Result Performing Organization Address [facility]/ZIP Co de Phone Number [facility] [address] [place] [address], [place] [phone] * CT Neck Soft Tissue w Contrast [...] CT soft tissue neck with contrast Comparison: CT/KO/NC/SR - NECK C+ CT - 05/17/24 14:11 [...] when compared to prior study. Procedure Note iMchael Cooper MD - 07/26/2025 INDICATION: History of head and neck cancer status post radiation with worsening dysphagia, history of esophagitis and stomatitis CT soft tissue neck with contrast Comparison: CT/KO/NC/SR - NECK C+ CT - 05/17/24 14:11 [...] of4 resultswithin the time period is included. [facility] Culture, Blood No growth at 5 days LAB MICROBIOLOGY METHOD 07/31/2025 11:01 PM EDT [facility] Blood Venous blood specimen / Unknown Venipuncture / Unknown 07/26/2025 10:14 PM EDT 07/26/2025 10:53 PM EDT us Tmaara Banks MD LAB MICROBIOLOGY - GENERAL ORD ERABLES Final Result [facility] [address] [place] [address], [place] [phone] * Respiratory virus panel molecular study (07/26/2025 9:51 PM EDT) [facility] Adenovirus Detection by PCR Not Detected Not Detected LAB MICROBIOLOGY METHOD 07/26/2025 10:50 PM EDT [facility] Influenza A PCR Not Detected Not Detected LAB MICROBIOLOGY METHOD 07/26/2025 10:50 PM EDT [facility] Influenza B PCR Not Detected Not Detected LAB MICROBIOLOGY METHOD 07/26/2025 10:50 PM EDT [facility] Coronavirus 229E Not Detected Not Detected LAB MICROBIOLOGY METHOD 07/26/2025 10:50 PM EDT [facility] Coronavirus HKU1 Not Detected Not Detected LAB MICROBIOLOGY METHOD 07/26/2025 10:50 PM EDT [facility] Coronavirus OC43 Not Detected Not Detected LAB MICROBIOLOGY METHOD 07/26/2025 10:50 PM EDT [facility] Coronavirus NL63 Not Detected Not Detected LAB MICROBIOLOGY METHOD 07/26/2025 10:50 PM EDT [facility] Parainfluenza Virus 1 Not Detected Not Detected LAB MICROBIOLOGY METHOD 07/26/2025 10:50 PM EDT [facility] Parainfluenza Virus 2 Not Detected Not Detected LAB MICROBIOLOGY METHOD 07/26/2025 10:50 PM EDT [facility] Parainfluenza Virus 3 Not Detected Not Detected LAB MICROBIOLOGY METHOD 07/26/2025 10:50 PM EDT [facility] Parainfluenza Virus 4 Not Detected Not Detected LAB MICROBIOLOGY METHOD 07/26/2025 10:50 PM EDT [facility] RSV PCR Not Detected Not Detected LAB MICROBIOLOGY METHOD 07/26/2025 10:50 PM EDT [facility] Human Metapneumovirus A and B Not Detected Not Detected LAB MICROBIOLOGY METHOD 07/26/2025 10:50 PM EDT [facility] Rhinovirus/Entero virus Not Detected Not Detected LAB MICROBIOLOGY METHOD 07/26/2025 10:50 PM EDT [facility] Bordetella pertussis Not Detected Not Detected LAB MICROBIOLOGY METHOD 07/26/2025 10:50 PM EDT [facility] Bordetella parapertussis Not Detected Not Detected LAB MICROBIOLOGY METHOD 07/26/2025 10:50 PM EDT [facility] Mycoplasma pneumo by PCR Not Detected Not Detected LAB MICROBIOLOGY METHOD 07/26/2025 10:50 PM EDT [facility] Chlamydia pneumoniae Not Detected Not Detected LAB MICROBIOLOGY METHOD 07/26/2025 10:50 PM EDT [facility] SARS COV-2 Not Detected Not Detected LAB MICROBIOLOGY METHOD 07/26/2025 10:50 PM EDT [facility] Swab Both anterior nares / Unknown Non-blood Collection / Unknown 07/26/2025 9:51 PM EDT 07/26/2025 9:59 PM EDT [facility] - 07/26/2025 10:50 PM EDT Testing was performed using the [employer] Respiratory Pathogen PCR Assay. All results must [...] ORD ERABLES Final Result Performing Organization Address [facility]/ZIP Co de Phone Number [facility] [address] [place] [address], [place] [phone] * Lactate, with reflex (07/26/2025 9:49 PM EDT) LACTIC ACID 1.4 0.4 - 2.0 mmol/L LAB CHEMISTRY METHOD 07/26/2025 10:23 PM EDT [facility] Blood Venous blood specimen / Unknown Venipuncture / Unknown 07/26/2025 9:49 PM EDT 07/26/2025 9:59 PM EDT Tamara Banks MD LAB BLOOD ORDERABLES Final Res ult Performing Organization Address [facility]/ZIP Co de Phone Number [facility] [address] [place] [address], [place] [phone] * (ABNORMAL) Procalcitonin (07/26/2025 9:49 PM EDT) Procalcitonin 0.17(H) <=0.16 ng/mL LAB CHEMISTRY METHOD 07/27/2025 7:54 AM EDT [facility] Blood Venous blood specimen / Unknown Venipuncture / Unknown 07/26/2025 9:49 PM EDT 07/26/2025 9:59 PM EDT Narrative [facility] - 07/27/2025 7:54 AM EDT Procalcitonin [...] MD LAB BLOOD ORDERABLES Final Res ult [facility] [address] [place] [address], * (ABNORMAL) Comprehensive metabolic panel (07/26/2025 9:49 PM EDT) Only the most recent of4 resultswithin the time period is included. Sodium 137 133 - 145 mmol/L LAB CHEMISTRY METHOD 07/26/2025 10:21 PM [facility] Potassium 4.1 3.5 - 5.5 mmol/L LAB CHEMISTRY METHOD 07/26/2025 10:21 PM [facility] Chloride 105 96 - 110 mmol/L LAB CHEMISTRY METHOD 07/26/2025 10:21 PM [facility] CO2 26 21 - 32 mmol/L LAB CHEMISTRY METHOD 07/26/2025 10:21 PM [facility] Anion Gap 6 3 - 11 LAB CHEMISTRY METHOD 07/26/2025 10:21 PM [facility] Glucose 160(H) 70 - 100 mg/dL LAB CHEMISTRY METHOD 07/26/2025 10:21 PM [facility] BUN 9 5 - 25 mg/dL LAB CHEMISTRY METHOD 07/26/2025 10:21 PM [facility] Creatinine 0.70 0.70 - 1.30 mg/dL LAB CHEMISTRY METHOD 07/26/2025 10:21 PM [facility] eGFR 97 >=60 mL/min/1. 73m2 LAB CHEMISTRY METHOD 07/26/2025 10:21 PM [facility] Comment:Calculation based on the Chronic Kidney Disease Epidemiology Collaboration (CKD-EPI) equation refit without adjustment for race. BUN/Creatinine Ratio 12.9 LAB CHEMISTRY METHOD 07/26/2025 10:21 PM [facility] Calcium 8.4(L) 8.5 - 10.5 mg/dL LAB CHEMISTRY METHOD 07/26/2025 10:21 PM [facility] AST (SGOT) 20 10 - 42 unit/L LAB CHEMISTRY METHOD 07/26/2025 10:21 PM [facility] ALT (SGPT) 16 10 - 60 unit/L LAB CHEMISTRY METHOD 07/26/2025 10:21 PM [facility] Alkaline Phosphatase 86 42 - 121 unit/L LAB CHEMISTRY METHOD 07/26/2025 10:21 PM [facility] Total Protein 5.9(L) 6.0 - 8.0 g/dL LAB CHEMISTRY METHOD 07/26/2025 10:21 PM [facility] Albumin 3.4 3.2 - 5.0 g/dL LAB CHEMISTRY METHOD 07/26/2025 10:21 PM [facility] Total Bilirubin 0.6 0.0 - 1.4 mg/dL LAB CHEMISTRY METHOD 07/26/2025 10:21 PM [facility] Blood Venous blood specimen / Unknown Venipuncture / Unknown 07/26/2025 9:49 PM EDT 07/26/2025 9:59 PM EDT Tamara Banks MD LAB BLOOD ORDERABLES Final Res ult [facility] [address] [place] [address], * XR Chest 1 View (07/26/2025 9:41 [...] Signed Date: 07/27/2025 10:07 ET Workstation ID: [id number] Transcribed By: Self Edit Transcribed Date: 07/27/2025 [...] Signed Date: 07/27/2025 10:07 ET Workstation ID: [id number] Transcribed By: Self Edit Transcribed Date: 07/27/2025 10:06 ET us Tamara Banks MD IMG XR PROCEDURES Final [...] Signed Date: 07/25/2025 09:06 ET Workstation ID: [id number] Transcribed By: Self Edit Transcribed Date: 07/25/2025 [...] Signed Date: 07/25/2025 09:06 ET Workstation ID: [id number] Transcribed By: Self Edit Transcribed Date: 07/25/2025 09:04 ET us Juan Manuel Green MD IMG XR PROCEDURES Final Result * (ABNORMAL) RBC morphology review (07/25/2025 8:16 AM EDT) Rbc Morphology Present( A) Consistent with indices, Normal for LAB HEMETOLOGY METHOD 07/25/2025 10:14 AM EDT [facility] Platelet Morphology - WAM See Note(A) Normal LAB HEMETOLOGY METHOD 07/25/2025 10:14 AM EDT [facility] Comment:PLT: Normal Polychromasia Present Present( A) (none) LAB HEMETOLOGY METHOD 07/25/2025 10:14 AM EDT [facility] Ovalocytes Present 5 - 10%(A) (none) LAB HEMETOLOGY METHOD 07/25/2025 10:14 AM EDT [facility] Tear Drop Cells Present 5 - 10%(A) (none) LAB HEMETOLOGY METHOD 07/25/2025 10:14 AM EDT [facility] Blood Venous blood specimen / Unknown Venipuncture / Unknown 07/25/2025 8:16 AM EDT 07/25/2025 8:42 AM EDT us Juan Manuel Green MD LAB BLOOD ORDERABLES Final Res ult [facility] [address] [place] [address], * (ABNORMAL) Iron and TIBC (07/25/2025 8:16 AM EDT) Only the most recent of2 resultswithin the time period is included. Iron 32(L) 50 - 160 mcg/dL LAB CHEMISTRY METHOD 07/25/2025 10:23 AM EDT [facility] TIBC 204(L) 250 - 450 mcg/dL LAB CHEMISTRY METHOD 07/25/2025 10:23 AM EDT [facility] Iron Saturation 16(L) 20 - 50 % LAB CHEMISTRY METHOD 07/25/2025 10:23 AM EDT [facility] Blood Venous blood specimen / Unknown Venipuncture / Unknown 07/25/2025 8:16 AM EDT 07/25/2025 8:42 AM EDT us Juan Manuel Green MD LAB BLOOD ORDERABLES Final Res ult Performing Organization Address [facility]/ZIP Co de Phone Number [facility] [address] [place] [address], [place] [phone] * Type and screen (07/25/2025 8:16 AM EDT) Only the most recent of2 resultswithin the time period is included. Pathologist [facility] ABO Group A 07/25/2025 10:02 AM EDT [facility] Rh Type Positive 07/25/2025 10:02 AM EDT [facility] Antibody Screen Negative 07/25/2025 10:02 AM EDT [facility] Blood Venous blood specimen / Unknown Venipuncture / Unknown 07/25/2025 8:16 AM EDT 07/25/2025 8:42 AM EDT us Juan Manuel Green MD LAB BLOOD BANK TEST ORDERABLES Final Result Performing Organization Address [facility]/ZIP Co de Phone Number [facility] [address] [place] [address], [place] [phone] * (ABNORMAL) Folate (07/25/2025 8:16 AM EDT) Pathologist [facility] Folate >20.0(H) 2.8 - 17.0 ng/ml LAB CHEMISTRY METHOD 07/25/2025 9:42 AM EDT [facility] Blood Venous blood specimen / Unknown Venipuncture / Unknown 07/25/2025 8:16 AM EDT 07/25/2025 8:42 AM EDT us Juan Manuel Green MD LAB BLOOD ORDERABLES Final Res ult Performing Organization Address City/[facility]/ZIP Co de Phone Number [facility] [address] [place] [address], [place] [phone] * Ferritin (07/25/2025 8:16 AM EDT) Only the most recent of3 resultswithin the time period is included. Pathologist [facility] Ferritin 346 26 - 388 ng/mL LAB CHEMISTRY METHOD 07/25/2025 10:23 AM EDT [facility] Blood Venous blood specimen / Unknown Venipuncture / Unknown 07/25/2025 8:16 AM EDT 07/25/2025 8:42 AM EDT us Juan Manuel Green MD LAB BLOOD ORDERABLES Final Res ult Performing Organization Address City/[facility]/ZIP Co de Phone Number [facility] [address] [place] [address], [place] [phone] * (ABNORMAL) Vitamin B12 (07/25/2025 8:16 AM EDT) Pathologist [facility] Vitamin B-12 1,146(H) 250 - 900 pcg/mL LAB CHEMISTRY METHOD 07/25/2025 9:42 AM EDT [facility] Blood Venous blood specimen / Unknown Venipuncture / Unknown 07/25/2025 8:16 AM EDT 07/25/2025 8:42 AM EDT Result [facility] Juan Manuel Green MD LAB BLOOD ORDERABLES Final Res ult [facility] [address] [place] [address], [place] [phone] * HM Colonoscopy (07/18/2025 1:30 PM EDT) Only the most recent of4 resultswithin the time period is included. Result [facility] Historical Provider HEALTH MAINTENANCE Final Result * External Endoscopy (07/18/2025 1:29 PM EDT) Only the most recent of4 resultswithin the time period is included. Anatomical Region Laterality Modality Endoscopy Result [facility] Historical Provider GI~PROCEDURE ORDERABLES F inal Result * Abdominal Ultrasound (07/18/2025 1:27 PM EDT) Result [facility] Historical Provider IN CLINIC/BEDSIDE ORDERAB LES Final Result * Abdominal Ultrasound (07/18/2025 1:23 PM EDT) [facility] Provider IN CLINIC/BEDSIDE ORDERAB LES Final Result * CT Abdomen wo Contrast (07/18/2025 1:16 PM EDT) Anatomical Region Laterality Modality Body Computed Tomogra phy Result [facility] Historical Provider IMG CT PROCEDURES Final R esult * CT Abdomen Pelvis wo and w Contrast (07/18/2025 1:08 PM EDT) Anatomical Region Laterality Modality Body Computed Tomogra phy Historical Provider IMG CT PROCEDURES Final R esult * (ABNORMAL) Lactate dehydrogenase (07/03/2025 11:13 AM EDT) LDH 535(H) 120 - 246 unit/L LAB CHEMISTRY METHOD 07/03/2025 12:12 PM EDT [facility] Blood Venous blood specimen / Unknown Venipuncture / Unknown 07/03/2025 11:13 AM EDT 07/03/2025 11:23 AM EDT Lor Bal MD LAB BLOOD ORDERABLE S Final Result Performing Organization Address [facility]/ZIP Co de Phone Number [facility] [address] [place] [address], * Transfuse RBC (06/30/2025 3:56 PM EDT) Korina SCOTT BLOOD TRANSFUSION ORDERABL ES Final Result * Prepare RBC: 1 Units (06/30/2025 7:34 AM EDT) [facility] Signature Product Code [id number] 06/30/2025 1:07 PM EDT [facility] Unit Number [id number] 06/30/20 1:07 PM EDT [facility] Crossmatch Compatible 06/30/2025 7:43 AM EDT [facility] Dispense Status Transfused 06/30/2025 1:07 PM EDT [facility] Unit ABO Rh APOS 06/30/2025 1:07 PM EDT [facility] Unit Expiration Date Time [id number] 06/30/2025 1:07 PM EDT [facility] Unit Blood Type 6200 06/30/2025 1:07 PM EDT [facility] Blood Venous blood specimen / Unknown 06/30/2025 7:34 AM EDT 06/29/2025 3:12 AM EDT Korina SCOTT BLOOD BANK PRODUCT ORDERAB LES Final Result Performing Organization Address [facility]/ZIP Co de Phone Number [facility] [address] [place] [address], * ECG-Annotated (06/30/2025) us Provider Onbase MD [...] Signed Date: 06/29/2025 12:45 ET Workstation ID: [id number] Transcribed By: Self Edit Transcribed Date: 06/29/2025 12:34 ET Narrative 06/29/2025 12:45 PM EDT INDICATION: Shortness of breath with left lower lobe infiltrate suspected on portable chest radiograph TECHNIQUE: CT scan of the chest obtained without contrast. Scanner: Echoing Greener 128 slice VCT Dose reduction technique: ASIR [...] of the chest obtained without contrast. Scanner: Echoing Greener 128 slice VCT Dose reduction technique: ASIR [...] Signed Date: 06/29/2025 12:45 ET Workstation ID: [id number] Transcribed By: Self Edit Transcribed Date: 06/29/2025 12:34 ET us Korina SCOTT Jake CT PROCEDURES Final Re sult * Thyroid stimulating hormone with reflex to free t4 and free t3 (06/29/2025 8:08 AM EDT) TSH 2.56 0.40 - 4.00 mcIU/mL LAB CHEMISTRY METHOD 06/29/2025 9:56 AM EDT [facility] Blood Venous blood specimen / Unknown Venipuncture / Unknown 06/29/2025 8:08 AM EDT 06/29/2025 8:37 AM EDT [facility]ABLES Final Result Performing Organization Address [facility]/ZIP Co de Phone Number [facility] [address] [place] [address], * (ABNORMAL) Vitamin B12 and folate (06/29/2025 8:08 AM EDT) Vitamin B-12 1,064(H) 250 - 900 pcg/mL LAB CHEMISTRY METHOD 06/29/2025 9:29 AM EDT [facility] Folate >20.0(H) 2.8 - 17.0 ng/ml LAB CHEMISTRY METHOD 06/29/2025 9:29 AM EDT [facility] Blood Venous blood specimen / Unknown Venipuncture / Unknown 06/29/2025 8:08 AM EDT 06/29/2025 8:37 AM EDT Korina Bueno NE LAB BLOOD ORDERABLES Final Result Performing Organization Address [facility]/ZIP Co de Phone Number [facility] [address] [place] [address], * Cortisol (06/29/2025 8:08 AM EDT) Cortisol 21.8 mcg/dL LAB CHEMISTRY METHOD 06/29/2025 9:56 AM EDT [facility] Blood Venous blood specimen / Unknown Venipuncture / Unknown 06/29/2025 8:08 AM EDT 06/29/2025 8:37 AM EDT Narrative [facility] - 06/29/2025 9:56 AM EDT CORTISOL REFERENCE RANGE 8 AM SPEC: 5.0-23.0 mcg/dL 4 PM SPEC: 3.0-16.0 mcg/dL 8 PM SPEC: <5.0 mcg/dL Korina SCOTT LAB BLOOD ORDERABLES Final Result Performing Organization Address [facility] de Phone Number [facility] [address] [place] [address], * (ABNORMAL) Hemoglobin and hematocrit (06/29/2025 3:08 AM EDT) Pathologist [facility] Hemoglobin 8.3(L) 13.5 - 17.5 g/dL LAB HEMETOLOGY METHOD 06/29/2025 3:25 AM EDT [facility] Hematocrit 26.3(L) 42.0 - 54.0 % LAB HEMETOLOGY METHOD 06/29/2025 3:25 AM EDT [facility] Blood Venous blood specimen / Unknown Venipuncture / Unknown 06/29/2025 3:08 AM EDT 06/29/2025 3:12 AM EDT Varun Lovelace MD LAB BLOOD ORDERABLES Final Result Performing Organization Address [facility] de Phone Number [facility] [address] [place] [address], * (ABNORMAL) Reticulocyte count (06/29/2025 3:08 AM EDT) Retic Ct Abs 0.050 0.030 - 0.090 M/mcL LAB HEMETOLOGY METHOD 06/29/2025 3:17 AM EDT [facility] Retic Ct Pct 1.7 0.7 - 1.7 % LAB HEMETOLOGY METHOD 06/29/2025 3:17 AM EDT [facility] Immature Retic Fract 28.7(H) 2.3 - 15.9 % LAB HEMETOLOGY METHOD 06/29/2025 3:17 AM EDT [facility] Reticulocyte Hemoglobin 25.1(L) >29.0 pcg LAB HEMETOLOGY METHOD 06/29/2025 3:17 AM [facility] Blood Venous blood specimen / Unknown Venipuncture / Unknown 06/29/2025 3:08 AM EDT 06/29/2025 3:12 AM EDT us Varun Lovelace MD LAB BLOOD ORDERABLES Final Result [facility] [address] [place] [address], * (ABNORMAL) Urinalysis with reflex microscopic (06/29/2025 12:30 AM EDT) Specific [place] Urine 1.020 1.003 - 1.030 LAB URINALYSIS - AUTOMATED METHOD 06/29/2025 1:32 AM [facility] pH, Urine 5.5 5.0 - 8.0 pH LAB URINALYSIS - AUTOMATED METHOD 06/29/2025 1:32 AM [facility] Leukocytes, Urine Small(A) Negative LAB URINALYSIS - AUTOMATED METHOD 06/29/2025 1:32 AM [facility] Nitrite, Urine Negative Negative LAB URINALYSIS - AUTOMATED METHOD 06/29/2025 1:32 AM [facility] Protein, Urine 100(A) <=Trace mg/dL LAB URINALYSIS - AUTOMATED METHOD 06/29/2025 1:32 AM [facility] Glucose, Urine Negative Negative mg/dL LAB URINALYSIS - AUTOMATED METHOD 06/29/2025 1:32 AM [facility] Ketones, Urine Negative Negative mg/dL LAB URINALYSIS - AUTOMATED METHOD 06/29/2025 1:32 AM [facility] Urobilinogen, Urine 1.0 0.2 - 1.0 mg/dL LAB URINALYSIS - AUTOMATED METHOD 06/29/2025 1:32 AM [facility] Bilirubin, Urine Negative Negative LAB URINALYSIS - AUTOMATED METHOD 06/29/2025 1:32 AM [facility] Blood, Urine Negative Negative LAB URINALYSIS - AUTOMATED METHOD 06/29/2025 1:32 AM [facility] RBC, Urine 2.3 0 - 4 /HPF LAB URINALYSIS - AUTOMATED METHOD 06/29/2025 1:32 AM [facility] WBC, Urine 12.5(H) 0 - 4 /HPF LAB URINALYSIS - AUTOMATED METHOD 06/29/2025 1:32 AM [facility] Squamous Epithelial, Urine 29 0 - 60 /LPF LAB URINALYSIS - AUTOMATED METHOD 06/29/2025 1:32 AM [facility] Bacteria, Urine Negative Negative /HPF LAB URINALYSIS - AUTOMATED METHOD 06/29/2025 1:32 AM [facility] Hyaline Casts, Urine 1 0 - 3 /LPF LAB URINALYSIS - AUTOMATED METHOD 06/29/2025 1:32 AM [facility] Urine Urine specimen obtained by clean catch procedure / Unknown Non-blood Collection / Unknown 06/29/2025 12:30 AM EDT 06/29/2025 12:44 AM EDT us Marco Antonio Jean MD LAB URINE ORDERABLES Final Resul t [facility] [address] [place] [address], * Troponin I High Sensitivity (06/28/2025 10:16 PM EDT) High Sensitivity Troponin I 15 <=79 ng/L LAB CHEMISTRY METHOD 06/28/2025 11:06 PM EDT [facility] Blood Venous blood specimen / Unknown Venipuncture / Unknown 06/28/2025 10:16 PM EDT 06/28/2025 10:19 PM EDT Narrative [facility] - 06/28/2025 11:06 PM EDT High levels of biotin in samples may falsely decrease hsTroponin values. Use caution when interpreting hsTroponin results in patients taking biotin who exhibit renal impairment (eGFR <60) or in patients taking more than 20 mg/day of biotin. us Marco Antonio Jean MD LAB BLOOD ORDERABLES Final Resul t Performing Organization Address City/[facility]/ZIP Co de Phone Number [facility] [address] [place] [address], [place] [phone] * APTT (06/28/2025 10:16 PM EDT) aPTT 34.2 24.1 - 39.3 sec LAB COAGULATION METHOD 06/28/2025 11:04 PM EDT [facility] Blood Venous blood specimen / Unknown Venipuncture / Unknown 06/28/2025 10:16 PM EDT 06/28/2025 10:19 PM EDT us Marco Antonio Jean MD LAB BLOOD ORDERABLES Final Resul t Performing Organization Address City/[facility]/ZIP Co de Phone Number [facility] [address] [place] [address], [place] [phone] * (ABNORMAL) Protime-INR (06/28/2025 10:16 PM EDT) Protime 16.7(H) 10.6 - 13.9 sec LAB COAGULATION METHOD 06/28/2025 11:04 PM EDT [facility] INR 1.3 LAB COAGULATION METHOD 06/28/2025 11:04 PM EDT [facility] Blood Venous blood specimen / Unknown Venipuncture / Unknown 06/28/2025 10:16 PM EDT 06/28/2025 10:19 PM EDT us Marco Antonio Jean MD LAB BLOOD ORDERABLES Final Resul t Performing Organization Address [facility]/ZIP Co de Phone Number [facility] [address] [place] [address], [place] [phone] * B-Type Natriuretic Peptide (BNP) (06/28/2025 10:16 PM EDT) [facility] BNP 22 <=100 pcg/mL LAB CHEMISTRY METHOD 06/28/2025 10:55 PM EDT [facility] Blood Venous blood specimen / Unknown Venipuncture / Unknown 06/28/2025 10:16 PM EDT 06/28/2025 10:19 PM EDT us Marco Antonio Jean MD LAB BLOOD ORDERABLES Final Resul t Performing Organization Address [facility]/ZIP Co de Phone Number [facility] [address] [place] [address], [place] [phone] * Lipase (06/28/2025 10:16 PM EDT) [facility] Lipase 16 13 - 75 unit/L LAB CHEMISTRY METHOD 06/28/2025 10:47 PM EDT [facility] Blood Venous blood specimen / Unknown Venipuncture / Unknown 06/28/2025 10:16 PM EDT 06/28/2025 10:19 PM EDT us Marco Antonio Jean MD LAB BLOOD ORDERABLES Final Resul t Performing Organization Address City/[facility]/ZIP Co de Phone Number [facility] [address] [place] [address], [place] [phone] * Lactate (06/28/2025 10:16 PM EDT) [facility] Lactate 1.2 0.4 - 2.0 mmol/L LAB CHEMISTRY METHOD 06/28/2025 11:06 PM EDT [facility] Blood Venous blood specimen / Unknown Venipuncture / Unknown 06/28/2025 10:16 PM EDT 06/28/2025 10:18 PM EDT us Marco Antonio Jean MD LAB BLOOD ORDERABLES Final Resul t [facility] [address] [place] [address], * CT Cervical Spine wo Contrast (06/28/2025 [...] GEMUSE QTc 447 ms GEMUSE P Wave [place] -9 degrees GEMUSE R [place] -11 degrees GEMUSE T [place] 33 degrees GEMUSE ECG Interpretation Normal sinus rhythm Normal ECG When compared with ECG of 28-JUN-2025 20:53, (unconfirmed) Nonspecific T wave abnormality no longer evident in Inferior leads Confirmed by JOSE ZAYAS ([id number]) on 06/29/2025 9:51:37 AM GEMUSE 06/28/2025 8:54 PM EDT 06/29/2025 9:51 AM EDT us Nito Narayanan MD ECG ORDERABLES Final Res ult GEMUSE * (ABNORMAL) Hemoglobin A1c (01/20/2025 9:23 AM EDT) Pathologist [facility] Hemoglobin A1C 6.8(H) <6.5 % LAB CHEMISTRY METHOD 01/20/2025 1:32 PM EDT [facility] Mean Bld Glu Estim. 148 mg/dL LAB CHEMISTRY METHOD 01/20/2025 1:32 PM EDT [facility] Blood Venous blood specimen / Unknown Venipuncture / Unknown 01/20/2025 9:23 AM EDT 01/20/2025 11:40 AM EDT Alla Escobar MD LAB BLOOD ORDERABLES Final Res ult [facility] [address] [place] [address], * HM Urine Albumin Creatinine Ratio (12/31/2023) Pathologist [facility] HM Urine Albumin Creatinine Ratio abstracted Historical Provider HEALTH MAINTENANCE Final Result * Lipid panel (12/31/2023) [facility] Triglycerides 0 mg/dL Comment:abstracted, no inter pretation [...] 02/17/2025 MDRO (other) 02/17/2025 02/17/2025 Insurance MEDICARE [facility] Advance Directives * Full Code - Default [...] Agents on File Name Relationship Healthcare Agent [facility] Communication Curtis Johnson Spouse Health Care Agent Care Teams [employer] Supervisor Relationship Specialty Start Date End Date Mariely Vargas MD [address] [place] [address] PCP - General 05/29/22
== END 2025-09-20 10:05 | disposition home or self-care (01) ==
LOC: HO.HPS 09:32
PROVIDERS: PCP Hospitalist; Visit Provider Hospitalist
DX: J98.4 Other disorders of lung (principal); R91.1 Solitary pulmonary nodule; G47.33 Obstructive sleep apnea (adult) (pediatric); Z99.89 Dependence on other enabling machines and devices; J30.9 Allergic rhinitis, unspecified; R05.3 Chronic cough; C44.229 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 and external auricular canal; J18.9 Pneumonia, unspecified organism
CPT/HCPCS: 99214; G2211

== ENCOUNTER → 2025-09-20 09:32 | Outpatient (BNVA) | payer MEDICARE, SELFPAY | PROVIDERS: PCP Hospitalist; Visit Provider Hospitalist | DX: G47.33 Obstructive sleep apnea (adult) (pediatric) (principal); Z99.89 Dependence on other enabling machines and devices; R91.1 Solitary pulmonary nodule; J98.4 Other disorders of lung; J30.9 Allergic rhinitis, unspecified; R05.3 Chronic cough; C44.229 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 and external auricular canal | CPT/HCPCS: 99212 ==